=== PATIENT | female | born 1960 | race Caucasian/White ===

== ENCOUNTER 2021-09-21 11:12 | Inpatient (IN) | payer MEDICARE, MEDICAID, SELFPAY ==
--- NOTE | ~2021-09-21 | XR_ITS ---
EXAMINATION: LEFT WRIST CLINICAL INFORMATION: Pain COMPARISON: Left hand from 10/27/2021 TECHNIQUE: 4 views of left hand including scaphoid view FINDINGS: There is no evidence of fracture, dislocation, soft tissue abnormalities. There are no changes of osteoarthritis seen. Bones are well-mineralized and soft tissues are normal. XR/XR wrist LT w scaphoid IMPRESSION: No abnormal findings
--- NOTE | ~2021-09-21 | XR_ITS ---
EXAMINATION: XR HAND, LEFT CLINICAL INFORMATION: Left hand snuffbox tenderness. COMPARISON: None TECHNIQUE: PA, lateral, and oblique views of the left hand. FINDINGS: No fracture or dislocation. Alignment maintained. Joint spaces are maintained. The scaphoid appears intact. The triscaphe joint is maintained. The trapezium is maintained. Soft tissues appear unremarkable. XR/XR hand LT min 3V IMPRESSION: Unremarkable appearance of the left hand. No focal abnormality in the region of concern.
--- NOTE | 2021-09-21 11:20 | ED.PSYCH ---
HPI - Psych General Stated Complaint: SECTION 12, THOUGHTS TO HARM OTHERS Time Seen by Provider: 09/21/21 11:19 Source: patient and EMS Mode of arrival: EMS Limitations: no limitations History of Present Illness HPI Narrative: 61 y/o female with history of schizophrenia with prominent delusions with history of inpatient psychiatric admission here back in 2017 who presents to the ER via EMS with reported thoughts of hurting others. She arrives on a Section 12. MD complaint: homicidal ideation Related Data Allergies Allergy/AdvReac Type Severity Reaction Status Date / Time cashew nut Allergy Severe ANAPHYLAXIS Unverified 06/10/20 17:14 peanut [Peanut] Allergy Severe ANAPHALAXIS Unverified 06/10/20 17:14
--- NOTE | 2021-09-21 11:52 | ED_ITS ---
HPI - Psych General Chief Complaint: Psychiatric Symptoms Stated Complaint: SECTION 12, THOUGHTS TO HARM OTHERS Time Seen by Provider: 09/21/21 11:19 Source: EMS Mode of arrival: EMS Limitations: other (Uncooperative) History of Present Illness HPI Narrative: Patient is brought to the emergency room by EMS. EMS crew was not sure why they were called, other than the patient is manic. Patient was Section 12 by police department. Patient is unwilling to cooperate. Patient states that she is here to be admitted. Patient states she does not know why she is here. Patient refusing to change her clothes. Patient locked herself in the bathroom and is refusing to come out. It is fixated that when she goes to the grocery store, people are staring at her. Patient states that she wants to hurt those people. Patient also states that she is known to have her brother come to the emergency room and kill us all. Of note, patient has a Marquis order. Patient has an extensive psychiatric history. In 2017, patient was hospitalized in for 5 months Related Data Allergies Allergy/AdvReac Type Severity Reaction Status Date / Time cashew nut Allergy Severe ANAPHYLAXIS Unverified 06/10/20 17:14 peanut [Peanut] Allergy Severe ANAPHALAXIS Unverified 06/10/20 17:14 Review of Systems Review of Systems: Yes Other (Uncooperative) [facility] Past Medical History Medical History (Updated 09/21/21 @ 12:08 by Shanta Rodríguez MD) Delusions Hyperprolactinemia Hypothyroidism Paranoid Pituitary adenoma Schizophrenia Social History Social History Advance Directives: No Advance Directives Information Provided: No Patient : No Physical Exam Vital Signs: Vital Signs: Last Vital Signs Resp 16 09/21/21 12:30 BMI result Body Mass Index 26.6 Const: Other: Appearance: Alert. Anxious, refuses to have her vital signs taken Eyes: Pupils equal, round and reactive to light. ENT: Pharynx normal. Neck: Normal inspection. CVS: Declined Respiratory: No respiratory distress. Abdomen: Decline Skin: Skin warm and dry. Normal skin color. Extremities: Moves all extremities Neuro: Oriented X 3. No motor deficit. No sensory deficit. Moving all extermities. No slurred speech. Cranial nerves 2-12 grossly intact Psych: Anxious, uncooperative, locked herself in the bathroom, refusing to change clothes, refusing vitals, patient seems to be paranoid and delusional Course Course Course Narrative: Patient locked herself in the bathroom. Staff was able to open the door. However patient is unwilling to come out. Patient is currently on a one-to-one in the bathroom with the staff. [facility] consult pending. Anticipating the patient will be hospitalized. Physician observation started at 12:07 [facility] evaluated the patient, patient will be admitted, bed search pending 19:13. I was informed that the patient's nurse that the patient remains psychotic, delusional, patient threatening to punch, kill and hurt staff. Patient remains noncompliant. Patient becoming more aggressive. Patient will be given 5 mg of Haldol, 2 of Ativan and 50 mg of diphenhydramine. Order for chemical restraint in place. Discharge Plan Discharge Clinical Impression: Paranoid, Delusional disorder Patient Disposition: Still a Patient
[2021-09-21 12:30] VITALS: RESP 16; BMI 26.6
--- NOTE | 2021-09-21 16:31 | PC.NURSE ---
received phone call from RAMIRO Craig who said brother stated jason was extended, and that patient has been off these meds since november. patients brother name is Kong Guillaume [phone] med is prolixin 25mg IM q 2 weeks ranging up to 50mg im q 2weeks. faxed document will be added to record
--- NOTE | 2021-09-21 18:18 | PC.NURSE ---
tech made attempt to have client comply with covid swab
[2021-09-21 19:20] VITALS: RESP 24
[2021-09-21] MEDS: LORazepam 2 MG/ML VIAL IM (19:25)
[2021-09-21] MEDS: diphenhydrAMINE HCL 50 MG/ML VIAL IM (19:25)
[2021-09-21] MEDS: Haloperidol Lactate 5 MG/ML VIAL IM (19:25)
[2021-09-21 19:35] VITALS: RESP 20
[2021-09-21 19:47] LABS: COVID-19 Test Negative (Negative)
[2021-09-21 19:50] VITALS: RESP 18
[2021-09-21 20:05] VITALS: RESP 16
[2021-09-21 20:20] VITALS: RESP 16
[2021-09-22] VITALS (10 sets, daily range): BP systolic 136–203; BP diastolic 62–117; PULSE 66–91; RESP 14–18; TEMP 36.2–37.1; O2SAT 96–97
--- NOTE | 2021-09-22 | ECG_ITS ---
Test Reason : need for emergent psychotropic medication use Blood Pressure : / mmHG Vent. Rate : 084 BPM Atrial Rate : 084 BPM P-R Int : 144 ms QRS Dur : 078 ms QT Int : 396 ms P-R-T Axes : 110 217 111 degrees QTc Int : 467 ms Suspect limb lead reversal, interpretation assumes no reversal Normal sinus rhythm Lateral infarct , age undetermined Abnormal ECG When compared with ECG of 29-FEB-2012 15:46, QRS axis Shifted left Nonspecific T wave abnormality no longer evident in Anterior leads Nonspecific T wave abnormality now evident in Lateral leads Referred By: Viky Armendariz Electronically Signed By:Justin Reyes
[2021-09-22] MEDS: diphenhydrAMINE HCL 50 MG/ML VIAL IM (02:00)
[2021-09-22] MEDS: LORazepam 2 MG/ML VIAL IM (02:00)
[2021-09-22] MEDS: Haloperidol Lactate 5 MG/ML VIAL IM (02:00)
--- NOTE | 2021-09-22 05:38 | PC.NURSE ---
Patient is completely disoriented, thought content paranoid delusional, thought process non coherent, tangential, and scattered, non compliant with any protocol, refused to change control analyst, refused lab work, and became very aggressive and threatening to staff member, provider ordered Haldol 5 mg IM, Ativan 2 mg IM, and Benadryl 50 mg IM at 1925, administered as ordered with some effect, patient woke up at 0130, demanding discharge, loud and disruptive, threatening, provider was on site, ordered Ativan 2 mg IM, Haldol 5mg PO, and Benadryl 50 mg IM, administered as ordered at 0200 with good effect this time and was placed on physical hold from 0200 to 0245, staff were able to remove her shoes and jewelries, and able to swab her for covid, patient is tested negative for covid, per [facility] patient's disposition is section 12 inpatient bed search, pending blood work, urine sample, change control analyst at this time, will continue to monitor.
--- NOTE | 2021-09-22 08:15 | PC.NURSE ---
Pt received: Pt AOx4 and offers no complaints at this time. Pt cooperative as she gets ready for the day. Pt given breakfast but pt has not eaten any yet. Pt section 12 and is pending bed search.
--- NOTE | 2021-09-22 09:23 | PC.NURSE ---
Pt up to nursing station multiple times stating she will like 1 amp of narcan because she given an elephant dose last night . Pt explained that reasoning behind given narcan and that she does not qualify for one at this moment. Pt responded by waving her finger in this RN's face and stating she will report staff to [facility] and the medical board. Pt's getting readily more angry. Deescalation attempts successful at this time. RN will continue to monitor.
--- NOTE | 2021-09-22 10:16 | PC.NURSE ---
Pt's legal guardian and brother Dr. Kong Guillaume called and asked fro pt update status. Pt relays that a current Geronimo's Order is in affect and extended to mid October,. Kong stated he will faxed over updated documents. Kong also stated he would like to speak to pt's current overseeing provider to discuss medications. Kong can be reached at: [phone]. COLLINS Knight made aware of this conversation.
--- NOTE | 2021-09-22 12:40 | PHA.MEDREC ---
Pharmacy Consult ? Medication Reconciliation Pharmacy has completed the medication reconciliation. Patient has a Geronimo Order for Fluphenazine 25 mg IM Q2Wk. Spoke with patient brother. He is unsure of another other medications patient is on and does not know the pharmacy she fills at. Called [facility] where fluphenazine was filled in January but had no other prescription. Brother believes that she is on levothyoxine but not sure of dose. Tried to speak with patient. Patient would not wake up or was purposly ignoring me. Patricia Flores, PharmD
--- NOTE | 2021-09-22 14:08 | PC.NURSE ---
Nurse to nurse report given to [facility] RN Jennifer. During report, Jennifer asked if pt can get an ekg prior to arrival to unit. COLLINS Knight made aware and COLLINS called [facility] to verify that refusing all labs and ekg.
[2021-09-22 17:54] LABS: MANUAL DIFF FLAG NO
[2021-09-22 18:11] LABS: Ethanol < 10 mg/dL
[2021-09-22 18:15] LABS: Alanine Aminotransferase 20 U/L (0-31); Albumin Level 4.2 g/dL (3.5-5.0); Alkaline Phosphatase 77 U/L (39-117); Anion Gap 13 (12-20); Aspartate Amino Transferase 25 U/L (5-31); Bilirubin Direct 0.2 mg/dL (0.0-0.5); Bilirubin Total 0.6 mg/dL (0.0-1.0); Blood Urea Nitrogen 11 mg/dL (9-16); Calcium 9.6 mg/dL (8.4-10.2); Carbon Dioxide 26 mmol/L (22-29); Chloride 109 mmol/L (96-108); Creatinine Clr Calc Pharmacy 84.7; Estimated Glomerular Filt Rate > 60; Glucose Random 86 mg/dL (60-115); Lipase 18 U/L (8-78); Potassium 3.5 mmol/L (3.3-5.1); Sodium 144 mmol/L (135-145); Total Protein 7.2 g/dL (6.5-8.0)
[2021-09-22 18:19] LABS: Basophils Percent Auto 0.4 % (0-2); Eosinophils Absolute Auto 0.1 X10*3/uL (0.0-0.4); Eosinophils Percent Auto 0.7 % (0-4); Hematocrit 41.1 % (37.0-47.0); Imm Gran Abs Auto 0.01 X10*3/uL (0.00-0.03); Imm Gran Pct Auto 0.1 % (0.0-0.4); Lymphocytes Absolute Auto 1.7 X10*3/uL (1.2-4.9); Mean Corpuscular HGB Conc 34.1 g/dl (31.0-35.0); Mean Corpuscular Hemoglobin 28.5 pg (27.0-33.0); Mean Corpuscular Volume 83.5 fL (80.0-98.0); Mean Platelet Volume 10.6 fL (9.4-12.3); Monocytes Absolute Auto 0.7 X10*3/uL (0.1-1.2); Monocytes Percent Auto 10.1 % (2-11); Neutrophils Absolute Auto 4.4 x10*3/uL (2.0-8.3); Neutrophils Percent Auto 63.7 % (45-73); Platelet Count 239 X10*3/uL (160-400); Red Blood Count 4.92 X10*6/uL (4.20-5.50); Red Cell Distribution Width 13.3 % (11.0-16.0)
--- NOTE | 2021-09-22 23:52 | PC.ADMIT ---
A white female aged 61 years was [facility] at 1744 as a section 12-B following referral from [facility] and [facility]. Pt is known to [facility] and has a admissions here and elsewhere. Pt admitted with a diagnosis of Unspecified Schizophrenia spectrum and other psychotic d/o. Pt was evaluated at [facility] due to decompensated mental state; pt was unkempt, with intense eye contact and appeared hypervigilant. Speech was low and pressured at times. Pt has poor sleep and appetite. Pt c/o racing thoughts at night and inability to sleep due to fixed persecutory delusions of bombs in her home, bugs in her clothing and fears of being watched. Pt said voices tell her these things. Pt noted weight loss due to fear of going top the grocery store. Pt's apartment was noted to have rotting food on countertops and refrigerator. Pt denied SI/HI. [facility] reports pt is on a Marquis order and has not taken medications since December of 2020. Pt had stopped responding to phone calls from [facility] in February; wellness checks had been done, but pt appeared well. [facility] staff noted at end of July looked okay but was noted to be off baseline and was using vulgar language. Recently the prperty information assurance manager of apartment complex called [facility] because of bizarre behaviors. [facility] staff felt that the pandemeic contributed to pt's decompensation due to increased isolation. Pt was not able to participate in admission due to apparent sedation. Medical issues include Crohn's didease, hyperthyroidism, pituitary edenoma and hyperprolactinemia. Pt had an elevated BP upon /112; subsequent assessment remained high. Provider was notified and an order was obtained for Clonidine 0.1mg PO ONCE; pt refused medication saying her BP was elevated because of acrylic in the sheets . Pt has no history of Etoh or substance abuse.Pt was placed on 1:1 safety checks upon arrival due to apparent sedation related to a medication restraint that had occurred in the ED this morning. [id number] done, initial treatment plan done and admitting orders obtained. Pt is resting in room at this time.
[2021-09-23 00:02] VITALS: BP 194/96; PULSE 66; RESP 18; TEMP 36.8; O2SAT 96
--- NOTE | 2021-09-23 00:06 | PC.NURSE ---
Addendum entered by Carrie Lang RN 09/23/21 00:08: Will continue to monitor pt and her BP throughout the night. Original Note: Pt vitals were taken at 2350, BP was 194/96. Pt was asked to take Clonidine, pt refused.
[2021-09-23 02:08] VITALS: BP 191/93; PULSE 78; RESP 18; TEMP 37; O2SAT 97
--- NOTE | 2021-09-23 02:08 | PC.NURSE ---
Addendum entered by Carrie Lang RN 09/23/21 02:22: call or contact centre operator Dr. Guzman notified. Original Note: Pt vitals were taken at 0200, BP is 191/93. Pt offered Clonidine, pt is refusing. Nursing Hand Tile Maker notified
--- NOTE | 2021-09-23 03:07 | PC.NURSE ---
Spoke with Dr. Guzman regarding consecutive elevated BP's for pt and refusal of BP meds. Dr will put order in for Haldol PO and Ativan PO and also suggested Hydroxyzine also to help with BP to offer her and keep monitoring BP as we are. Stated she will speak with pt's son tomorrow.
--- NOTE | 2021-09-23 03:33 | PC.NURSE ---
PT refused Haldol, Ativan, Hydroxyzine for help with BP. Pt states her elevated BP is due to the acrylic in my socks and stated for the RN to shut her mouth . BP was 140/80 at this time. Has decreased substantially since last taken.
[2021-09-23 03:38] VITALS: BP 140/80; PULSE 72; RESP 16; TEMP 37.2; O2SAT 97
--- NOTE | 2021-09-23 13:42 | HO.PSYADMNOT ---
HPI Date of Service: 09/23/21 Chief Complaint: SECTION 12, THOUGHTS TO HARM OTHERS Sources of Information: patient interviewed, chart reviewed and crisis/core team assessment reviewed Additional Sources of Information: Pts Brother Kong Lee (legal Guardian); review of Jason Order extended through Nov 11, 2021. HPI Subjective Notes: Ann Warning, Jason Order and Section 12B Guardianship: Yes Medical Problems Affecting Mental Status: Yes (possible untreated hypothyroidism per her brother/guardian) Narrative: pt brought to Ed by police and EMS due to decompensation, inability to care fro self and paranoid delusions. Admitted to m5 on section 12 B. pt states she si here at the hospital because of police mistreatment. she states they kicked down her door. she states that [employer] police are poisoning her and forcing her to take medication because she refused to work for them. She beleives food and medicine are poisoned by the government. She will not see a psychiatrist becasue they work for the [employer] Police and the same goes for therapist. Past Psychiatric History: many hospitalizations for schizophrenia with paranoid delusions. Has only responded to prolixin in past acording to her brother. she had had terrible side effect from other meds in the past. Geronimo Order in place and expires Nov 11, 2021 Medical Evaluation Reviewed: Yes reviewed [facility] Medical History (Updated 09/21/21 @ 12:08 by Shanta Rodríguez MD) Delusions Hyperprolactinemia Hypothyroidism Paranoid Pituitary adenoma Schizophrenia Family History: brother Kong Lee is guardian pt states parents are in hiding due to fear of [employer] Police Social History: lives alone, has [facility] services Substance History: no Trauma History: none known Diagnostics Vital Signs (24Hr): Vital Signs - 24 hr 09/22/21 18:00 09/22/21 19:10 09/22/21 22:30 Temperature 98.7 F Pulse Rate 91 87 78 Respiratory Rate 18 18 18 Blood Pressure 203/112 H 191/117 H 203/106 H Pulse Oximetry 09/22/21 23:54 09/23/21 00:02 09/23/21 02:08 Temperature 98.2 F 98.2 F 98.6 F Pulse Rate 66 66 78 Respiratory Rate 18 18 18 Blood Pressure 194/96 H 194/96 H 191/93 H Pulse Oximetry 96 96 97 09/23/21 03:38 Temperature 98.9 F Pulse Rate 72 Respiratory Rate 16 Blood Pressure 140/80 H Pulse Oximetry 97 BMI result Body Mass Index 26.6 Labs Results: 09/22/21 17:48 09/22/21 17:48 Labs: Laboratory Results - last 48 hr 09/21/21 09/22/21 09/22/21 19:26 17:48 17:48 WBC 7.0 RBC 4.92 Hgb 14.0 Hct 41.1 MCV 83.5 MCH 28.5 MCHC 34.1 RDW 13.3 Plt Count 239 MPV 10.6 Immature Gran % (Auto) 0.1 Neut % (Auto) 63.7 Lymph % (Auto) 25.0 [place] % (Auto) 10.1 Eos % (Auto) 0.7 Baso % (Auto) 0.4 Lymph # (Auto) 1.7 [place] # (Auto) 0.7 Eos # (Auto) 0.1 Baso # (Auto) 0.0 Abs Immat Gran (auto) 0.01 Absolute Neuts (auto) 4.4 Absolute Nucleated RBC 0.000 Nucleated RBC % (auto) 0.0 Sodium 144 Potassium 3.5 Chloride 109 H Carbon Dioxide 26 Anion Gap 13 BUN 11 Creatinine 0.74 Estim Creat Clear Calc 84.7 Estimated GFR > 60 Random Glucose 86 Calcium 9.6 Total Bilirubin 0.6 Direct Bilirubin 0.2 AST 25 ALT 20 Alkaline Phosphatase 77 Total Protein 7.2 Albumin 4.2 Lipase 18 Ethyl Alcohol COVID-19 (MARGIE) Negative COVID-19 Clin Com See Note 09/22/21 17:48 WBC RBC Hgb Hct MCV MCH MCHC RDW Plt Count MPV Immature Gran % (Auto) Neut % (Auto) Lymph % (Auto) [place] % (Auto) Eos % (Auto) Baso % (Auto) Lymph # (Auto) [place] # (Auto) Eos # (Auto) Baso # (Auto) Abs Immat Gran (auto) Absolute Neuts (auto) Absolute Nucleated RBC Nucleated RBC % (auto) Sodium Potassium Chloride Carbon Dioxide Anion Gap BUN Creatinine Estim Creat Clear Calc Estimated GFR Random Glucose Calcium Total Bilirubin Direct Bilirubin AST ALT Alkaline Phosphatase Total Protein Albumin Lipase Ethyl Alcohol < 10 COVID-19 (MARGIE) COVID-19 Clin Com Meds/Allergies Meds Home Medications Acetaminophen (Acetaminophen 325 Mg Tablet) 650 mg PO Q6H PRN PRN Reason: Headache/Pain Mild Scale (1-3) Al Hydroxide/Mg Hydroxide (Magnesium Hydrox/Alum Hydrox 30 Ml Oral.Susp) 30 ml PO Q6H PRN PRN Reason: Heartburn/Nausea Fluphenazine HCl (Fluphenazine Hcl 1 Mg Tablet) 1 mg PO BEDTIME [facility] Last Admin: 09/23/21 19:41 Dose: 1 mg Documented by: Haloperidol (Haloperidol 1 Mg Tablet) 2 mg PO BID PRN PRN Reason: Psychosis Hydroxyzine HCl (Hydroxyzine Hcl 25 Mg Tablet) 25 mg PO BEDTIME PRN PRN Reason: Anxiety Lorazepam (Lorazepam 1 Mg Tablet) 1 mg PO TID [facility] Last Admin: 09/23/21 19:42 Dose: Not Given Documented by: Magnesium Hydroxide (Milk Of Magnesia 30 Ml Oral.Susp) 30 ml PO DAILY PRN PRN Reason: Constipation Non-Formulary Medication ( Fluphenazine 1 Mg/0. 4 Ml) 1 each IM BEDTIME PRN PRN Reason: IF PO DOSE REFUSED Pharmacy Consult (Consult Rx Perform Med Rec) 1 each MISCELLANE ONCE PRN PRN Reason: Consult order Trazodone HCl (Trazodone Hcl 50 Mg Tablet) 50 mg PO BEDTIME PRN PRN Reason: Insomnia Allergies Allergies Allergy/AdvReac Type Severity Reaction Status Date / Time cashew nut Allergy Severe ANAPHYLAXIS Unverified 06/10/20 17:14 peanut [Peanut] Allergy Severe ANAPHALAXIS Unverified 06/10/20 17:14 Mental Status Exam Mental Status Exam Patient Appearance: Disheveled and Unkempt Patient Orientation: Person and Situation Level of Consciousness: Awake and Alert Patient Behavior: Guarded and Suspicious Mood Description: Suspicious and Apprehensive Affect Description: Suspicious Patient Cognition Impaired: Yes Ability to Follow Directions: Good Speech Pattern: Clear Hallucinations: Auditory Delusions: Being Controlled and Paranoid Ideation Thought Content: positive for Loose Associations Judgement: Poor Assessment & Plan Assessment & Plan (1) Paranoid: Status: Acute Code(s): F22 - Delusional disorders Assessment and Plan: believes food and medicine are poisoned and that the [facility] police are controlling her due to her refusal to work with them (2) Delusional disorder: Status: Acute Code(s): F22 - Delusional disorders Assessment and Plan: review jason order- extended and in effect until Nov 11, 2021. collateral with brother, [facility], out pt providres' discharge planning with sw/team start prolixin - offer PO medication and if refuse give IM prolixin 1mg at hs and titrate upto tolerated and therapeutic switch to deconoate when appropriate monitor vitals TID Patient educated on: diagnosis, medication risk/benefits and other (Jason order (pt denies she has one) ) Guardian/Caregiver educated on: medication risk/benefits, therapeutic strategies and other (brother agree with treatment plan to offer PO meds and give IM if pt refuses. ) Informed Consent: does not understand Reason for continued inpatient stay Substantial Risk for: harm to self, inability to function, rapid decompensation and med/psych decompensation
[2021-09-23] MEDS: fluPHENAZine HCl 1 MG TABLET PO (19:41)
--- NOTE | 2021-09-23 19:43 | PC.NURSE ---
PT refused vital signs and Ativan at 19:44. MD notified, no new orders.
--- NOTE | 2021-09-24 11:55 | HO.PSYCHPN ---
Subjective Subjective Date of Service: 09/24/21 Reason For Visit: SECTION 12, THOUGHTS TO HARM OTHERS Subjective Notes: Section 12B Guardianship: Yes Medical Problems Affecting Mental Status: No Interim History: pt accepted PO meds last night. no adverse effects. brother who is guardian advises to watch for cheeking PO meds. pt withdrawn, mood superficially bright, guarded and isolative Medication Compliance: Yes Side effects from medications: No Attending Groups: No Review of Systems Acute medical concerns: No Medical Review of Systems: unchanged Review of Systems Review of Systems no change since transfer from ED. Pt denies any complaints of physical discomfort. Yes Unobtainable due to mental status and Other (Uncooperative) Mental Status Exam Mental Status Exam Patient Appearance: Disheveled and Unkempt Patient Orientation: Person and Situation Level of Consciousness: Awake and Alert Patient Behavior: Guarded and Suspicious Mood Description: Suspicious and Apprehensive Affect Description: Suspicious Patient Cognition Impaired: Yes Ability to Follow Directions: Good Speech Pattern: Clear Judgement: Poor Diagnostics Vital Signs (24Hr): BMI result Body Mass Index 26.6 Labs Results: 09/22/21 17:48 09/22/21 17:48 Labs: Laboratory Results - last 48 hr 09/22/21 09/22/21 09/22/21 17:48 17:48 17:48 WBC 7.0 RBC 4.92 Hgb 14.0 Hct 41.1 MCV 83.5 MCH 28.5 MCHC 34.1 RDW 13.3 Plt Count 239 MPV 10.6 Immature Gran % (Auto) 0.1 Neut % (Auto) 63.7 Lymph % (Auto) 25.0 Greer % (Auto) 10.1 Eos % (Auto) 0.7 Baso % (Auto) 0.4 Lymph # (Auto) 1.7 Greer # (Auto) 0.7 Eos # (Auto) 0.1 Baso # (Auto) 0.0 Abs Immat Gran (auto) 0.01 Absolute Neuts (auto) 4.4 Absolute Nucleated RBC 0.000 Nucleated RBC % (auto) 0.0 Sodium 144 Potassium 3.5 Chloride 109 H Carbon Dioxide 26 Anion Gap 13 BUN 11 Creatinine 0.74 Estim Creat Clear Calc 84.7 Estimated GFR > 60 Random Glucose 86 Calcium 9.6 Total Bilirubin 0.6 Direct Bilirubin 0.2 AST 25 ALT 20 Alkaline Phosphatase 77 Total Protein 7.2 Albumin 4.2 Lipase 18 Ethyl Alcohol < 10 Medications Medications Current Medications Acetaminophen (Acetaminophen 325 Mg Tablet) 650 mg PO Q6H PRN PRN Reason: Headache/Pain Mild Scale (1-3) Al Hydroxide/Mg Hydroxide (Magnesium Hydrox/Alum Hydrox 30 Ml Oral.Susp) 30 ml PO Q6H PRN PRN Reason: Heartburn/Nausea Fluphenazine HCl (Fluphenazine Hcl 1 Mg Tablet) 1 mg PO BID SARABJIT Haloperidol (Haloperidol 1 Mg Tablet) 2 mg PO BID PRN PRN Reason: Psychosis Hydroxyzine HCl (Hydroxyzine Hcl 25 Mg Tablet) 25 mg PO BEDTIME PRN PRN Reason: Anxiety Lorazepam (Lorazepam 1 Mg Tablet) 1 mg PO TID [facility] Last Admin: 09/24/21 09:05 Dose: Not Given Documented by: Magnesium Hydroxide (Milk Of Magnesia 30 Ml Oral.Susp) 30 ml PO DAILY PRN PRN Reason: Constipation Non-Formulary Medication ( Fluphenazine 1 Mg/0. 4 Ml) 1 each IM BEDTIME PRN PRN Reason: IF PO DOSE REFUSED Pharmacy Consult (Consult Rx Perform Med Rec) 1 each MISCELLANE ONCE PRN PRN Reason: Consult order Trazodone HCl (Trazodone Hcl 50 Mg Tablet) 50 mg PO BEDTIME PRN PRN Reason: Insomnia Allergies Allergies Allergy/AdvReac Type Severity Reaction Status Date / Time cashew nut Allergy Severe ANAPHYLAXIS Unverified 06/10/20 17:14 peanut [Peanut] Allergy Severe ANAPHALAXIS Unverified 06/10/20 17:14 Assessment & Plan Assessment & Plan (1) Paranoid: Status: Acute Code(s): F22 - Delusional disorders Assessment and Plan: believes food and medicine are poisoned and that the [employer] police are controlling her due to her refusal to work with them (2) Delusional disorder: Status: Acute Code(s): F22 - Delusional disorders Assessment and Plan: 09/23/21 review jason order- extended and in effect until Nov 11, 2021. collateral with brother, [facility], out pt providres' discharge planning with sw/team start prolixin - offer PO medication and if refuse give IM prolixin 1mg at hs and titrate upto tolerated and therapeutic switch to deconoate when appropriate monitor vitals TID 09/24/20 increase prolixin to 1 mg BID PO and if refuses PO give IM Prolixin. with PO meds monitor for cheeking the pills as brother state she has a history of such. I spent minutes with the patient and/or on the patient floor today, greater than?50% of which was spent counseling/coordinating care. Patient educated on: diagnosis, medication risk/benefits and therapeutic strategies Informed Consent: does not understand Reason for contiued inpatient stay Substantial Risk for: harm to self, harm to others, inability to function and rapid decompensation
[2021-09-24] MEDS: fluPHENAZine HCl 1 MG TABLET PO (14:23)
[2021-09-25] MEDS: fluPHENAZine HCl 1 MG TABLET PO ×2 (08:42→22:21)
--- NOTE | 2021-09-25 10:53 | HO.PSYCHPN ---
Subjective Subjective Date of Service: 09/25/21 Reason For Visit: SECTION 12, THOUGHTS TO HARM OTHERS Healthcare Proxy: Yes Guardianship: Yes Medical Problems Affecting Mental Status: No Interim History: pt accepting PO meds last night. no adverse effects. brother who is guardian advises to watch for cheeking PO meds. pt withdrawn, mood superficially bright, guarded. Doesn't feel she needs to be in hospital; feels she does not need treatmetn; makes statements that meds were forced due to her no cooperating with [employer] Medication Compliance: Yes Side effects from medications: No Attending Groups: No Review of Systems Acute medical concerns: No Medical Review of Systems: unchanged Review of Systems Review of Systems no change since transfer from ED. Pt denies any complaints of physical discomfort. Yes Unobtainable due to mental status and Other (Uncooperative) Mental Status Exam Mental Status Exam Patient Appearance: Disheveled and Unkempt Patient Orientation: Person and Situation Level of Consciousness: Awake and Alert Patient Behavior: Guarded, Suspicious, Resistive to Care and Pacing Mood Description: Suspicious, Constricted and Apprehensive Affect Description: Suspicious, Anxious and Apprehensive Patient Cognition Impaired: Yes Ability to Follow Directions: Good Speech Pattern: Clear Delusions: Being Controlled and Paranoid Ideation Thought Process: Illogical Thought Content: positive for Goal Oriented (to get out of hospital) Judgement: Poor Diagnostics Vital Signs (24Hr): BMI result Body Mass Index 26.6 Labs Results: 09/22/21 17:48 09/22/21 17:48 Medications Medications Current Medications Acetaminophen (Acetaminophen 325 Mg Tablet) 650 mg PO Q6H PRN PRN Reason: Headache/Pain Mild Scale (1-3) Al Hydroxide/Mg Hydroxide (Magnesium Hydrox/Alum Hydrox 30 Ml Oral.Susp) 30 ml PO Q6H PRN PRN Reason: Heartburn/Nausea Fluphenazine HCl (Fluphenazine Hcl 1 Mg Tablet) 1 mg PO BID [facility] Last Admin: 09/25/21 08:42 Dose: 1 mg Documented by: Haloperidol (Haloperidol 1 Mg Tablet) 2 mg PO BID PRN PRN Reason: Psychosis Hydroxyzine HCl (Hydroxyzine Hcl 25 Mg Tablet) 25 mg PO BEDTIME PRN PRN Reason: Anxiety Lorazepam (Lorazepam 1 Mg Tablet) 1 mg PO TID [facility] Last Admin: 09/25/21 08:44 Dose: Not Given Documented by: Magnesium Hydroxide (Milk Of Magnesia 30 Ml Oral.Susp) 30 ml PO DAILY PRN PRN Reason: Constipation Non-Formulary Medication ( Fluphenazine 1 Mg/0. 4 Ml) 1 each IM BID PRN PRN Reason: IF PO DOSE REFUSED Pharmacy Consult (Consult Rx Perform Med Rec) 1 each MISCELLANE ONCE PRN PRN Reason: Consult order Trazodone HCl (Trazodone Hcl 50 Mg Tablet) 50 mg PO BEDTIME PRN PRN Reason: Insomnia Allergies Allergies Allergy/AdvReac Type Severity Reaction Status Date / Time cashew nut Allergy Severe ANAPHYLAXIS Unverified 06/10/20 17:14 peanut [Peanut] Allergy Severe ANAPHALAXIS Unverified 06/10/20 17:14 Assessment & Plan Assessment & Plan (1) Paranoid: Status: Acute Code(s): F22 - Delusional disorders Assessment and Plan: believes food and medicine are poisoned and that the [employer] police are controlling her due to her refusal to work with them (2) Delusional disorder: Status: Acute Code(s): F22 - Delusional disorders Assessment and Plan: 09/23/21 review jason order- extended and in effect until Nov 11, 2021. collateral with brother, [facility], out pt providres' discharge planning with sw/team start prolixin - offer PO medication and if refuse give IM prolixin 1mg at hs and titrate upto tolerated and therapeutic switch to deconoate when appropriate monitor vitals TID 09/24/20 increase prolixin to 1 mg BID PO and if refuses PO give IM Prolixin. with PO meds monitor for cheeking the pills as brother state she has a history of such. 09/25/21 continue Prolixin 1 mg bid and titrate as needed I spent minutes with the patient and/or on the patient floor today, greater than?50% of which was spent counseling/coordinating care. Patient educated on: diagnosis, medication risk/benefits and therapeutic strategies Informed Consent: does not understand and further education needed Reason for contiued inpatient stay Substantial Risk for: harm to self, inability to function and rapid decompensation
[2021-09-26] MEDS: fluPHENAZine HCl 1 MG TABLET PO ×2 (08:26→21:16)
--- NOTE | 2021-09-26 09:51 | HO.PSYCHPN ---
Subjective Subjective Date of Service: 09/26/21 Reason For Visit: SECTION 12, THOUGHTS TO HARM OTHERS Subjective Notes: Ann Warning (gave on 09/26/21), Conditional Voluntary, 3 Day and Section 12B Interim History: Habilitation Specialist met with patient and social work administrator Aimee Vidales Patient cooperative but with anxious affect and guarded and discussion Patient says she has no idea why she is here. She says she has been doing fine...very well... And that her prescriber agreed she should go off of her medication and so she stopped Prolixin months ago; since then she reiterates she has been doing quite well. She says this past spring,it was decided that she no longer needs to be on a Marquis or see a psychiatrist. Patient says all the sudden out of no where the police came banging on her door, barged in and brought her to the emergency room; she denies that any [facility] staff was present. Patient denies any SI, HI or AVH and she says she is not mentally ill. Habilitation Specialist and social work administrator did some reality testing and shared with patient what crisis report and [facility] worker said ([facility] worker was at the house with the police doing a wellness check). Patient denies that there was any rotten food in the house; she denied or buckets of urine; she denied having barricaded her door; she denied having any concern, worries or had made remarks about [facility] staff being part of the [employer] secret service; she denied that [facility] she had tried to visit in past months; she denied delusional worry that they were bombs in her toilet or bugs in her clothes. She did acknowledge that she had put some trash bags outside her door which contains her belongings, but said she was just cleaning up. [facility] worker explain to social work administrator Aimee that there work about 40 trash bags full of her furniture, pots and pans and appliances; they had done a wellness check back in July and [facility] worker reports that patient's apartment was meticulously clean, which it usually is. Patient said that she is willing to take Prolixin which he has done since coming to the unit, since it seems to make everyone happy. She remains adamant that she has had no delusional thinking and adamant that Marquis order has been annulled. Patient is currently on a 12 B. discussed signing a CV, discussed 3 day notice option, which patient understood and said will consider. Regarding Prolixin patient said that it caused her to gain weight, caused acne and hirsutism. 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 Mental Status Exam Mental Status Exam Narrative: Pt is alert and oriented; behavior is cooperative but guarded; patient is not in distress; dressed in home bathrobe and pajamas with combed hair and good hygiene; mood is described as good and affect anxious; eye contact appropriate; Speech is normal rate, volume and prosody and not pressured; no psychomotor agitation/retardation present; thought process is organized and goal directed; Thought content is why she's been admitted to hospital; otherwise pertinent to relevant topics; denies paranoid ideations; some delusonal thinking expressed ([employer] has been annulled); denies SI/HI or AVH. Patients insight and judgment impaired Diagnostics Vital Signs (24Hr): BMI result Body Mass Index 26.6 Labs Results: 09/22/21 17:48 09/22/21 17:48 Medications Medications Current Medications Acetaminophen (Acetaminophen 325 Mg Tablet) 650 mg PO Q6H PRN PRN Reason: Headache/Pain Mild Scale (1-3) Al Hydroxide/Mg Hydroxide (Magnesium Hydrox/Alum Hydrox 30 Ml Oral.Susp) 30 ml PO Q6H PRN PRN Reason: Heartburn/Nausea Fluphenazine HCl (Fluphenazine Hcl 1 Mg Tablet) 1 mg PO BID [facility] Last Admin: 09/26/21 08:26 Dose: 1 mg Documented by: Haloperidol (Haloperidol 1 Mg Tablet) 2 mg PO BID PRN PRN Reason: Psychosis Hydroxyzine HCl (Hydroxyzine Hcl 25 Mg Tablet) 25 mg PO BEDTIME PRN PRN Reason: Anxiety Lorazepam (Lorazepam 1 Mg Tablet) 1 mg PO TID [facility] Last Admin: 09/26/21 08:27 Dose: Not Given Documented by: Magnesium Hydroxide (Milk Of Magnesia 30 Ml Oral.Susp) 30 ml PO DAILY PRN PRN Reason: Constipation Non-Formulary Medication ( Fluphenazine 1 Mg/0. 4 Ml) 1 each IM BID PRN PRN Reason: IF PO DOSE REFUSED Pharmacy Consult (Consult Rx Perform Med Rec) 1 each MISCELLANE ONCE PRN PRN Reason: Consult order Trazodone HCl (Trazodone Hcl 50 Mg Tablet) 50 mg PO BEDTIME PRN PRN Reason: Insomnia Allergies Allergies Allergy/AdvReac Type Severity Reaction Status Date / Time cashew nut Allergy Severe ANAPHYLAXIS Unverified 06/10/20 17:14 peanut [Peanut] Allergy Severe ANAPHALAXIS Unverified 06/10/20 17:14 Assessment & Plan Assessment & Plan (1) Paranoid: Status: Acute Code(s): F22 - Delusional disorders Assessment and Plan: believes food and medicine are poisoned and that the [facility] police are controlling her due to her refusal to work with them (2) Delusional disorder: Status: Acute Code(s): F22 - Delusional disorders Assessment and Plan: Patient is a 61-year-old female with history of Schizophrenia, on a [employer] and with her brother as guardian, who presents via EMS following a wellness check by [facility] staff and police who found patient's apartment in a disheveled state and patient with paranoid delusions that her food was poisoned, there were bombs in the toilet and that [facility] staff was a part of the [place] secret police who were planning her demise, in the face of going off her Prolixin Decanoate this past December. On admission she denied any SI, HI, AVH or any delusional thinking; she also denied that any of the reported events or findings from [facility]'s wellness check were true and denied that she has a mental illness. Patient refused to sign in and was on a 12 B. Patient was willing to take Prolixin p.o. She lacks all insight. PLAN: Patient is on a [employer] extended and in effect until Nov 11, 2021. Patient has a guardian, her brother Kong Guillaume Patient on 12 B Q 15 minute checks Continue Prolixin 1 mg p.o. b.i.d.; currently patient refuses IM medications saying she is fine and does not need medication anyway but will take it just since everyone wants her to. Will get collateral from guardian I spent minutes with the patient and/or on the patient floor today, greater than?50% of which was spent counseling/coordinating care. Reason for contiued inpatient stay Substantial Risk for: inability to function
--- NOTE | 2021-09-26 12:31 | PC.NURSE ---
pt states never a smoker and does not want flu shot.
--- NOTE | 2021-09-26 21:15 | PC.NURSE ---
Patient refused labs and stated I don't want anyone else to come and ask me to let them draw labs on me. I had labs drawn in the ED and they were all normal . Who ordered those labs anyway?
[2021-09-27] MEDS: fluPHENAZine HCl 1 MG TABLET PO ×2 (08:23→20:15)
--- NOTE | 2021-09-27 14:22 | P.PNPSI_ITS ---
Subjective Subjective Date of Service: 09/27/21 Reason For Visit: SECTION 12, THOUGHTS TO HARM OTHERS Subjective Notes: Marquis Order, Conditional Voluntary and Section 12B Interim History: Refusing vitals; refused labs Patient was eager to sit down with consumer loan underwriter and social service assistant. She continued to deny any of the things that [facility] staff reported were true. Patient was ambivalent about signing a CV and asked consumer loan underwriter to go and 1st talk with her brother who is her guardian. Station Tender agreed (see details of conversation below). Station Tender came back to patient to discuss details of this conversation; however when it was explained that guardian believes she needs to remain on the unit and on ProlixinDecanoate, long-acting injectable, patient became angry. She then became verbally aggressive with consumer loan underwriter, demanding to see consumer loan underwriter's credentials, refusing to accept that consumer loan underwriter is a physician and saying we know who you are. .. If you touch any of us you're meat... She also accused social service assistant present of being an imposter. She asked to see Marquis order and since copy of paper was available, consumer loan underwriter showed it to pt who said it was a fake. She said that the primer charger of the state was Geov[place] and that he never signed her Marquis order; she later said he was also her fiance. Station Tender could not redirect conversation and patient continued to verbally challenge consumer loan underwriter and then saying she was going to escort consumer loan underwriter off the unit. Patient followed consumer loan underwriter closely, telling consumer loan underwriter to go out the door and that she was going to escort consumer loan underwriter off the unit; she could not be redirected but continue to follow consumer loan underwriter even trying to get behind the nurse's station to do so, only stopped when gate was closed but continuing to loudly speak accusatory early towards consumer loan underwriter. She then immediately went up to a staff member and said she knows that consumer loan underwriter was planning to murder patients on the unit. Throughout the day, each time consumer loan underwriter came onto the unit patient would i mmediately come over and start challenging consumer loan underwriter saying consumer loan underwriter's not doctor, telling other patients present not to listen to this consumer loan underwriter; patient is intrusive and invading staff's personal space, with angry affect and intense stare she would get very close to this consumer loan underwriter's face (and to other staff as well) and make challenging desparaging comments. She continued this behavior and interjected herself in the middle of a conversation consumer loan underwriter was having with another patient on the unit; in one instance she approached consumer loan underwriter shaking her finger, glaring and with intense, angry affect saying you're not a real doctor... she kept getting closer and closer until consumer loan underwriter had to stop and move back to avoid her; she then positioned herself in-between consumer loan underwriter and other patient; consumer loan underwriter tried to redirect her saying please excuse us, i can't talk with your right now, but she persisted, saying no, i won't and loudly told other patient don't listen to him...don't listen to him... he's not a real doctor. As consumer loan underwriter and peer tried to walk down the kramer away from patient, she followed, haranguing consumer loan underwriter needing to be redirected by another staff member. Station Tender spoke with patient's guardian, her brother Kong rojas. He reports that on Prolixin Decanoate 25 mg q.2 weeks patient does very well, drives her own car, volunteers, takes care of her apartment, herself, lives on her own and is mostly independent takes care of her apartment and herself. He says at baseline she probably still has delusional thoughts but they do not surface much and at baseline do not interrupt her functioning. He would like her to remain on long-acting injectable decanoate and says she will absolutely not take p.o. meds as an outpatient. He concurs that on this medication, she may have gained weight and developed some insulin resistance or high cholesterol however he says that this is the only medication that has seemed to work with the least amount of side effects. Patient has been out of the hospital for about 4 and half years. Her brother thinks that what likely happened was that COVID allowed her to fall through the cracks a bit and after she refused a couple of doses, she resisted [facility] staff. He says that when she has gone off medication in the past, she is able to continue functioning for several months, slowly decompensating until she all the sudden falls off a asa. Mental Status Exam Mental Status Exam Narrative: Pt is alert and oriented; behavior is aggressive, intrusive, verbally assaulting staff, posturing; dressed in home bathrobe and pajamas with combed hair and good hygiene; mood is described as angry with intense and angry affect anxious; eye contact is glaring; Speech is pressured and pt cannot be interrupted; psychomotor agitation present; thought process is organized and goal directed; Thought content is on paranoid delusional and persecutory fears; denies SI/HI or AVH.? Patients insight and judgment impaired Diagnostics Vital Signs (24Hr): BMI result Body Mass Index 26.6 Labs Results: 09/22/21 17:48 09/22/21 17:48 Medications Medications Current Medications Acetaminophen (Acetaminophen 325 Mg Tablet) 650 mg PO Q6H PRN PRN Reason: Headache/Pain Mild Scale (1-3) Al Hydroxide/Mg Hydroxide (Magnesium Hydrox/Alum Hydrox 30 Ml Oral.Susp) 30 ml PO Q6H PRN PRN Reason: Heartburn/Nausea Fluphenazine Decanoate (Fluphenazine Decanoate 25 Mg/Ml Vial) 25 mg IM Q14D@[facility]00 [facility] Fluphenazine HCl (Fluphenazine Hcl 1 Mg Tablet) 1 mg PO BID [facility] Last Admin: 09/27/21 08:23 Dose: 1 mg Documented by: Haloperidol (Haloperidol 1 Mg Tablet) 2 mg PO BID PRN PRN Reason: Psychosis Hydroxyzine HCl (Hydroxyzine Hcl 25 Mg Tablet) 25 mg PO BEDTIME PRN PRN Reason: Anxiety Lorazepam (Lorazepam 1 Mg Tablet) 1 mg PO TID [facility] Last Admin: 09/27/21 13:46 Dose: Not Given Documented by: Magnesium Hydroxide (Milk Of Magnesia 30 Ml Oral.Susp) 30 ml PO DAILY PRN PRN Reason: Constipation Non-Formulary Medication ( Fluphenazine 1 Mg/0. 4 Ml) 1 each IM BID PRN PRN Reason: IF PO DOSE REFUSED Pharmacy Consult (Consult Rx Perform Med Rec) 1 each MISCELLANE ONCE PRN PRN Reason: Consult order Trazodone HCl (Trazodone Hcl 50 Mg Tablet) 50 mg PO BEDTIME PRN PRN Reason: Insomnia Allergies Allergies Allergy/AdvReac Type Severity Reaction Status Date / Time cashew nut Allergy Severe ANAPHYLAXIS Unverified 06/10/20 17:14 peanut [Peanut] Allergy Severe ANAPHALAXIS Unverified 06/10/20 17:14 Assessment & Plan Assessment & Plan (1) Paranoid: Status: Acute Code(s): F22 - Delusional disorders Assessment and Plan: believes food and medicine are poisoned and that the [facility] police are controlling her due to her refusal to work with them (2) Delusional disorder: Status: Acute Code(s): F22 - Delusional disorders Assessment and Plan: Patient is a 61-year-old female with history of Schizophrenia, on a community Marquis and with her brother as guardian, who presents via EMS following a wellness check by [facility] staff and police who found patient's apartment in a disheveled state and patient with paranoid delusions that her food was poisoned, there were bombs in the toilet and that [facility] staff was a part of the [facility] secret police who were planning her demise, in the face of going off her? Prolixin Decanoate this past December.? On admission she denied any SI, HI, AVH or any delusional thinking; she also denied that any of the reported events or findings from [facility]'s wellness check were true and denied that she has a mental illness.? Patient refused to sign in and was on a 12 B.? Patient was willing to take Prolixin p.o. She lacks all insight. Patient continues to lack all insight and has become verbally aggressive physically posturing with menacing affect, intruding into staff's personal space, verbally harassing staff and making it difficult for staff to carry out work on the unit. Patient's behaviors have become unsafe; she refuses to increase p.o. Prolixin and for staff and milieu safety will order Prolixin Decanoate 25 mg IM which is on her Marquis and which her guardian says patient needs and agrees she should get. PLAN: Patient is on a community Marquis extended and in effect until Nov 11, 2021. Patient has a guardian, her brother Kong Rojas Patient on?12 B Q 15 minute checks Will start Prolixin Decanoate 25 mg IM q.2 weeks, giving 1st dose today; Prolixin Dec is listed on her Marquis, reviewed by consumer loan underwriter and specified by her guardian; Patient has become verbally aggressive and physically posturing, intruding in staff's space, verbally harassing staff to the point of making it difficult for staff to carry out work *PATIENT CANNOT REFUSE PROLIXIN DEC WHICH IS COURT ORDERED ON [place] Will Continue Prolixin 1 mg p.o. b.i.d.; for 2 weeks Will get collateral from guardian I spent minutes with the patient and/or on the patient floor today, greater than?50% of which was spent counseling/coordinating care. Reason for contiued inpatient stay Substantial Risk for: harm to others and inability to function
--- NOTE | 2021-09-27 23:10 | PC.ADMIT ---
Patient is a 44 year old single, white cisgender male who was brought to the [facility] ED via ambulance from his [facility]. Precip to admission to ED was aggressive behavior toward the [facility] staff, poor impulse control and verbal altercations. At this time he he has not been consistent with medications. Poor sleep and delusional thoughts are also present. Patient has been somatically focused and wants staff to do for him what he is able to do for himself. Patient was medically cleared in the [facility] EDHe evaluated by [facility] and deemed in need of IPLOC. Patient has a history of hospitalizations but is new to . Patient's admission diagnosis: Unspecified anxiety disorder. No remarkable medical issues noted in the ED report. During the admission process, patient was hyperverbal, with flight of ideas. He was unable to stay on topic. Patient spoke about cysters (cysts) that he has on his butt and other places in his private area . This keno writer said that we could probably let the provider know his concerns. Provider was made aware of admission and patient orders were put in. Patient will be on 15 minute safety checks. Patient arrival time on was 1515.
[2021-09-28] MEDS: fluPHENAZine HCl 1 MG TABLET PO ×2 (08:42→20:58)
--- NOTE | 2021-09-28 10:45 | HO.PSYCHPN ---
Subjective Subjective Date of Service: 09/28/21 Reason For Visit: SECTION 12, THOUGHTS TO HARM OTHERS Interim History: pt is superficially polite on approach. She agrees to sit down with telegraphic typewriter repairer and social services technician but insists on being called Dr. Vaishali rojas. Patient becomes very quickly agitated when telegraphic typewriter repairer explains that she is a patient here on the unit and raises her voice and says I am a doctor. .. You are nothing. .. you are an imposter. . . You are to refer to me as doctor. Patient however was able to calm down. She remains superficially polite. She said she talked with her brother and at his request took the Prolixin Decanoate IM shot and signed the CV. She reports that she is sleeping well and she has no complaints and no requests. She denies any SI or HI or AVH. She says that I am taking my medications and there are no problems. Patient said she would ask if she had any questions. Patient remains without insight and remains delusional. Staff reports the patient continues to be guarded and paranoid, continuing to say that various staff members, physicians nurses, social workers are fake, imposters without license is. She also said something to the effect that [facility] nurses are legally medicating people and made a comment about ambulance drivers plotting against her. Mental Status Exam Mental Status Exam Narrative: ?Pt is alert and oriented; behavior is superficially cooperative and calm; dressed in same home bathrobe and pajamas with combed hair and good hygiene; mood is described as good however affect has angry, irritable edge and pt can become intensely angry; eye contact is mostly appropriate when not angry; Speech is normal rate, volume and prosody; some psychomotor agitation present; thought process is organized and goal directed; Thought content is on paranoid delusional and persecutory fears with some grandiosity; denies SI/HI or AVH;? Patients insight and judgment impaired Diagnostics Vital Signs (24Hr): BMI result Body Mass Index 26.6 Labs Results: 09/22/21 17:48 09/22/21 17:48 Medications Medications Current Medications Acetaminophen (Acetaminophen 325 Mg Tablet) 650 mg PO Q6H PRN PRN Reason: Headache/Pain Mild Scale (1-3) Al Hydroxide/Mg Hydroxide (Magnesium Hydrox/Alum Hydrox 30 Ml Oral.Susp) 30 ml PO Q6H PRN PRN Reason: Heartburn/Nausea Fluphenazine Decanoate (Fluphenazine Decanoate 25 Mg/Ml Vial) 25 mg IM Q14D@0900 [facility] Last Admin: 09/27/21 17:30 Dose: 25 mg Documented by: Fluphenazine HCl (Fluphenazine Hcl 1 Mg Tablet) [address] [facility] Last Admin: 09/28/21 08:42 Dose: 1 mg Documented by: Hydroxyzine HCl (Hydroxyzine Hcl 25 Mg Tablet) 25 mg PO BEDTIME PRN PRN Reason: Anxiety Lorazepam (Lorazepam 1 Mg Tablet) 1 mg PO TID PRN PRN Reason: anxiety Magnesium Hydroxide (Milk Of Magnesia 30 Ml Oral.Susp) 30 ml PO DAILY PRN PRN Reason: Constipation Non-Formulary Medication ( Fluphenazine 1 Mg/0. 4 Ml) 1 each IM BID PRN PRN Reason: IF PO DOSE REFUSED Pharmacy Consult (Consult Rx Perform Med Rec) 1 each MISCELLANE ONCE PRN PRN Reason: Consult order Trazodone HCl (Trazodone Hcl 50 Mg Tablet) 50 mg PO BEDTIME PRN PRN Reason: Insomnia Allergies Allergies Allergy/AdvReac Type Severity Reaction Status Date / Time cashew nut Allergy Severe ANAPHYLAXIS Unverified 06/10/20 17:14 peanut [Peanut] Allergy Severe ANAPHALAXIS Unverified 06/10/20 17:14 Assessment & Plan Assessment & Plan (1) Paranoid: Status: Acute Code(s): F22 - Delusional disorders Assessment and Plan: believes food and medicine are poisoned and that the [facility] police are controlling her due to her refusal to work with them (2) Delusional disorder: Status: Acute Code(s): F22 - Delusional disorders Assessment and Plan: Patient is a 61-year-old female with history of Schizophrenia, on a community Espinoza and with her brother as guardian, who presents via EMS following a wellness check by [facility] staff and police who found patient's apartment in a disheveled state and patient with paranoid delusions that her food was poisoned, there were bombs in the toilet and that [facility] staff was a part of the [facility] secret police who were planning her demise, in the face of going off her? Prolixin Decanoate this past December.? On admission she denied any SI, HI, AVH or any delusional thinking; she also denied that any of the reported events or findings from [facility]'s wellness check were true and denied that she has a mental illness.? Patient refused to sign in and was on a 12 B.? Patient was willing to take Prolixin p.o. She lacks all insight. Patient continues to lack all insight and has become verbally aggressive physically posturing with menacing affect, intruding into staff's personal space, verbally harassing staff and making it difficult for staff to carry out work on the unit. Patient's behaviors have become unsafe; she refuses to increase p.o. Prolixin and for staff and milieu safety will order Prolixin Decanoate 25 mg IM which is on her Espinoza and which her guardian says patient needs and agrees she should get. -patient superficially polite but easily triggered and intense anger; remains with paranoid, persecutory delusions and some grandiosity PLAN: Patient is on a Sakti3 extended and in effect until Nov 11, 2021. Patient has a guardian, her brother Kong Rojas pt signed CV Q 15 minute checks Received Prolixin Decanoate 25 mg IM (on 09/27/21) Prolixin Dec is listed on her Espinoza, reviewed by telegraphic typewriter repairer and specified by her guardian *PATIENT CANNOT REFUSE PROLIXIN DEC WHICH IS COURT ORDERED ON ESPINOZA Will Continue Prolixin 1 mg p.o. b.i.d.; for 2 weeks I spent minutes with the patient and/or on the patient floor today, greater than?50% of which was spent counseling/coordinating care. Reason for contiued inpatient stay Substantial Risk for: harm to self, inability to function and rapid decompensation
[2021-09-29] MEDS: fluPHENAZine HCl 1 MG TABLET PO ×2 (08:31→21:59)
--- NOTE | 2021-09-29 10:32 | HO.PSYCHPN ---
Subjective Subjective Date of Service: 09/29/21 Reason For Visit: SECTION 12, THOUGHTS TO HARM OTHERS Interim History: Patient lying in bed awake. Superficially polite and cooperative, calm. Patient says that she is doing well, slept well last night. She says she is feeling tired today but denies any other symptoms, malaise, headache, GI discomfort or chills. She denies any medication side effects and has no complaints and no requests. Outside Plant Supervisor explains that it will likely be necessary to increase p.o. Prolixin dose as it is currently low and there is a need to overlap p.o. with Decanoate; patient asks if we could wait another day or so before doing this to which feature writer agrees. Mental Status Exam Mental Status Exam Narrative: Pt is alert and oriented; behavior is superficially cooperative and calm but guarded; dressed in same home bathrobe and pajamas with combed hair and good hygiene; mood is described as good and affect congruent; no irritable edge;? eye contact is appropriate; Speech is normal rate, volume and prosody; no some psychomotor agitation present; thought process is organized and goal directed; Thought content is on paranoid delusional and persecutory fears with some grandiosity; denies SI/HI or AVH;? Patients insight and judgment impaired Diagnostics Vital Signs (24Hr): BMI result Body Mass Index 26.6 Labs Results: 09/22/21 17:48 09/22/21 17:48 Medications Medications Current Medications Acetaminophen (Acetaminophen 325 Mg Tablet) 650 mg PO Q6H PRN PRN Reason: Headache/Pain Mild Scale (1-3) Al Hydroxide/Mg Hydroxide (Magnesium Hydrox/Alum Hydrox 30 Ml Oral.Susp) 30 ml PO Q6H PRN PRN Reason: Heartburn/Nausea Fluphenazine Decanoate (Fluphenazine Decanoate 25 Mg/Ml Vial) 25 mg IM Q14D@0900 [facility] Last Admin: 09/27/21 17:30 Dose: 25 mg Documented by: Fluphenazine HCl (Fluphenazine Hcl 1 Mg Tablet) 1 mg PO BID [facility] Last Admin: 09/29/21 08:31 Dose: 1 mg Documented by: Hydroxyzine HCl (Hydroxyzine Hcl 25 Mg Tablet) 25 mg PO BEDTIME PRN PRN Reason: Anxiety Lorazepam (Lorazepam 1 Mg Tablet) 1 mg PO TID PRN PRN Reason: anxiety Magnesium Hydroxide (Milk Of Magnesia 30 Ml Oral.Susp) 30 ml PO DAILY PRN PRN Reason: Constipation Non-Formulary Medication ( Fluphenazine 1 Mg/0. 4 Ml) 1 each IM BID PRN PRN Reason: IF PO DOSE REFUSED Pharmacy Consult (Consult Rx Perform Med Rec) 1 each MISCELLANE ONCE PRN PRN Reason: Consult order Trazodone HCl (Trazodone Hcl 50 Mg Tablet) 50 mg PO BEDTIME PRN PRN Reason: Insomnia Allergies Allergies Allergy/AdvReac Type Severity Reaction Status Date / Time cashew nut Allergy Severe ANAPHYLAXIS Unverified 06/10/20 17:14 peanut [Peanut] Allergy Severe ANAPHALAXIS Unverified 06/10/20 17:14 Assessment & Plan Assessment & Plan (1) Paranoid: Status: Acute Code(s): F22 - Delusional disorders Assessment and Plan: believes food and medicine are poisoned and that the [facility] police are controlling her due to her refusal to work with them (2) Delusional disorder: Status: Acute Code(s): F22 - Delusional disorders Assessment and Plan: Patient is a 61-year-old female with history of Schizophrenia, on a community Espinoza and with her brother as guardian, who presents via EMS following a wellness check by [facility] staff and police who found patient's apartment in a disheveled state and patient with paranoid delusions that her food was poisoned, there were bombs in the toilet and that [facility] staff was a part of the [place] secret police who were planning her demise, in the face of going off her? Prolixin Decanoate this past December.? On admission she denied any SI, HI, AVH or any delusional thinking; she also denied that any of the reported events or findings from [facility]'s wellness check were true and denied that she has a mental illness.? Patient refused to sign in and was on a 12 B.? Patient was willing to take Prolixin p.o. She lacks all insight. Patient continues to lack all insight and has become verbally aggressive physically posturing with menacing affect, intruding into staff's personal space, verbally harassing staff and making it difficult for staff to carry out work on the unit. Patient's behaviors have become unsafe; she refuses to increase p.o. Prolixin and for staff and milieu safety will order Prolixin Decanoate 25 mg IM which is on her Espinoza and which her guardian says patient needs and agrees she should get. -patient superficially polite but easily triggered and intense anger; remains with paranoid, persecutory delusions and some grandiosity PLAN: Patient is on a community Espinoza extended and in effect until Nov 11, 2021. Patient has a guardian, her brother Kong Guillaume pt signed CV Q 15 minute checks 1:1 while awake as patient is trying to interrupt other peers treatment by intentionally trying to disparage staff towards them Will Continue Prolixin PO for few weeks to overlap Decanoate Will likely need to increase Prolixin dose as it's subtherapeutic for overlapping with Decanoate 25 mg Received Prolixin Decanoate 25 mg IM (on 09/27/21) Prolixin Dec is listed on her Espinoza, reviewed by feature writer and specified by her guardian *PATIENT CANNOT REFUSE PROLIXIN DEC WHICH IS COURT ORDERED ON ESPINOZA I spent minutes with the patient and/or on the patient floor today, greater than?50% of which was spent counseling/coordinating care. Reason for contiued inpatient stay Substantial Risk for: inability to function and rapid decompensation
[2021-09-30] MEDS: fluPHENAZine HCl 1 MG TABLET PO (08:38)
--- NOTE | 2021-09-30 13:35 | P.PNPSI_ITS ---
Subjective Subjective Date of Service: 09/30/21 Reason For Visit: SECTION 12, THOUGHTS TO HARM OTHERS Interim History: Patient lying in bed, awake and alert Patient is pleasant and polite. She reports that she is feeling tired but denies any other symptoms and does not feel sick; she consents to a COVID rapid test out of an abundance of caution. Patient and typewriter ribbon winder discussed increasing Prolixin p.o. medication to which she understands is a part of process when restarting Decanoate. She agrees to typewriter ribbon winder titrating dose. Otherwise patient denies any problems or complaints. Patient thankful as child welfare social worker helping her get clothes from her brother. Patient continues to refuse vitals Patient continues to refuse labs; typewriter ribbon winder asked about additional lab for TSH given that she has a history of hypothyroidism and is complaining of being tired however patient refuses saying that her levels have been monitored and are normal. Review of Systems Constitutional: Reports body ache(s) (Denies), Reports chills (Denies), Reports fatigue, Reports headache(s) (Denies) and Reports malaise (Denies) Reports headache(s) (Denies) Cardiovascular: Reports chest pain (Denies) Gastrointestinal: Reports abdominal pain (Denies) Reports headache(s) (Denies) Endocrine: Reports fatigue Mental Status Exam Mental Status Exam Narrative: ?Pt is alert and oriented; behavior is superficially cooperative and calm but guarded; dressed in same home bathrobe and pajamas with combed hair and good hygiene; mood is described as good...tired and affect congruent; no irritable edge;? eye contact is appropriate; Speech is normal rate, volume and prosody; no some psychomotor agitation present; thought process is organized and goal directed; Thought content is guarded but has been on paranoid delusional and persecutory fears with some grandiosity; denies SI/HI or AVH;? Patients i nsight and judgment impaired Diagnostics Vital Signs (24Hr): BMI result Body Mass Index 26.6 Labs Results: 09/22/21 17:48 09/22/21 17:48 Medications Medications Current Medications Acetaminophen (Acetaminophen 325 Mg Tablet) 650 mg PO Q6H PRN PRN Reason: Headache/Pain Mild Scale (1-3) Al Hydroxide/Mg Hydroxide (Magnesium Hydrox/Alum Hydrox 30 Ml Oral.Susp) 30 ml PO Q6H PRN PRN Reason: Heartburn/Nausea Fluphenazine Decanoate (Fluphenazine Decanoate 25 Mg/Ml Vial) 25 mg IM Q14D@0900 [facility] Last Admin: 09/27/21 17:30 Dose: 25 mg Documented by: Fluphenazine HCl (Fluphenazine Hcl 2.5 Mg/5 Ml Elixir) 5 mg PO BEDTIME [facility] Fluphenazine HCl (Fluphenazine Hcl 1 Mg Tablet) 1 mg PO DAILY [facility] Hydroxyzine HCl (Hydroxyzine Hcl 25 Mg Tablet) 25 mg PO BEDTIME PRN PRN Reason: Anxiety Lorazepam (Lorazepam 1 Mg Tablet) 1 mg PO TID PRN PRN Reason: anxiety Magnesium Hydroxide (Milk Of Magnesia 30 Ml Oral.Susp) 30 ml PO DAILY PRN PRN Reason: Constipation Non-Formulary Medication ( Fluphenazine 1 Mg/0. 4 Ml) 1 each IM BID PRN PRN Reason: IF PO DOSE REFUSED Pharmacy Consult (Consult Rx Perform Med Rec) 1 each MISCELLANE ONCE PRN PRN Reason: Consult order Trazodone HCl (Trazodone Hcl 50 Mg Tablet) 50 mg PO BEDTIME PRN PRN Reason: Insomnia Allergies Allergies Allergy/AdvReac Type Severity Reaction Status Date / Time cashew nut Allergy Severe ANAPHYLAXIS Unverified 06/10/20 17:14 peanut [Peanut] Allergy Severe ANAPHALAXIS Unverified 06/10/20 17:14 Assessment & Plan Assessment & Plan (1) Paranoid: Status: Acute Code(s): F22 - Delusional disorders Assessment and Plan: believes food and medicine are poisoned and that the [facility] police are controlling her due to her refusal to work with them (2) Delusional disorder: Status: Acute Code(s): F22 - Delusional disorders Assessment and Plan: Patient is a 61-year-old female with history of Schizophrenia, on a community Marquis and with her brother as guardian, who presents via EMS following a wellness check by [facility] staff and police who found patient's apartment in a disheveled state and patient with paranoid delusions that her food was poisoned, there were bombs in the toilet and that [facility] staff was a part of the [place] secret police who were planning her demise, in the face of going off her? Prolixin Decanoate this past December.? On admission she denied any SI, HI, AVH or any delusional thinking; she also denied that any of the reported events or findings from [facility]'s wellness check were true and denied that she has a mental illness.? Patient refused to sign in and was on a 12 B.? Patient was willing to take Prolixin p.o. She lacks all insight. HOSPITAL COURSE: Patient continues to lack all insight and has become verbally aggressive physically posturing with menacing affect, intruding into staff's personal space, verbally harassing staff and making it difficult for staff to carry out work on the unit. Patient's behaviors have become unsafe; she refuses to increase p.o. Prolixin and for staff and milieu safety will order Prolixin Decanoate 25 mg IM which is on her Marquis and which her guardian says patient needs and agrees she should get. -signed CV after talking with guardian; also agreed with Prolixin Decanoate -patient superficially polite but easily triggered and intense anger; remains with paranoid, persecutory delusions and some grandiosity 09/30 patient remains superficially polite; guarded. She has not been challenging staff. Patient reports she is tired but denies any symptoms; agrees to increasing Prolixin p.o. (which is on Marquis and cannot be refused) -Prolixin 25 mg decanoate is roughly equivalent to getting Prolixin 20 mg p.o. daily; additionally p.o. doses are overlapped for several weeks after restarting Decanoate. Patient gets Decanoate every 2 weeks and literature typically uses q. 3 weeks for conversion so will titrate p.o. Prolixin to about 15 mg daily. Discussed with patient who agrees PLAN: Patient is on a community Marquis extended and in effect until Nov 11, 2021. Patient has a guardian, her brother Kong Guillaume pt signed CV Q 15 minute checks Will DC 1:1 since vulnerable pt now off unit; staff will monitor as patient can get intrusive and interfere with others treatment by trying to disparage staff and whispering delusions) 1. reports Tired: likely from restarting Prolixin -Ordered Covid test; patient denies all other associated symptoms and is afebrile however will get test out of and abundance of caution 2. Schizophrenia: -patient on community Marquis and cannot refuse Prolixin MEDS: Prolixin 1mg Qam (*PATIENT CANNOT REFUSE PROLIXIN PO; give IM prolixin if refuses) Prolixin 5mg qhs (*PATIENT CANNOT REFUSE PROLIXIN PO; give IM prolixin if refuses) Prolixin PO for few weeks to overlap Decanoate Will likely need to increase Prolixin dose as it's subtherapeutic for overlapping with Decanoate 25 mg Received Prolixin Decanoate 25 mg IM (on 09/27/21) Prolixin Dec is listed on her Marquis (CANNOT REFUSE), reviewed by typewriter ribbon winder and specified by her guardian (literature report decanoate q. 3 weeks or longer has been as effective as q.2 weeks which is something patient can discuss with outpatient provider but is something that may reduce side-effects and thus increase adherence) I spent minutes with the patient and/or on the patient floor today, greater than?50% of which was spent counseling/coordinating care. Reason for contiued inpatient stay Substantial Risk for: rapid decompensation
[2021-09-30 14:38] LABS: COVID-19 Test Negative (Negative)
[2021-10-01] MEDS: fluPHENAZine HCl 1 MG TABLET PO (08:21)
--- NOTE | 2021-10-01 14:04 | HO.PSYCHPN ---
Subjective Subjective Date of Service: 10/01/21 Reason For Visit: SECTION 12, THOUGHTS TO HARM OTHERS Subjective Notes: Conditional Voluntary Interim History: Patient lying in bed, awake and alert Pleasant on approach. Pt reports feeling restless, need to move arms and legs with prolixin, no observable involuntary movement while talking with pt. Pt offered ativan but she refused due to polypharmacy although she is only on prolixin. She denied SI/HI. She is superficially cooperative, and guarded but polite. Medication Compliance: Yes Side effects from medications: No Attending Groups: No Review of Systems Review of Systems no change since transfer from ED. Pt denies any complaints of physical discomfort. Yes Unobtainable due to mental status and Other (Uncooperative) Constitutional: Reports body ache(s) (Denies), Reports chills (Denies), Reports fatigue, Reports headache(s) (Denies) and Reports malaise (Denies) Reports headache(s) (Denies) Cardiovascular: Reports chest pain (Denies) Gastrointestinal: Reports abdominal pain (Denies) Reports headache(s) (Denies) Endocrine: Reports fatigue Mental Status Exam Mental Status Exam Narrative: ?Pt is alert and oriented; behavior is superficially cooperative and calm but guarded; dressed in same home bathrobe and pajamas with combed hair and good hygiene; mood is described as good...tired and affect congruent; no irritable edge;? eye contact is appropriate; Speech is normal rate, volume and prosody; no some psychomotor agitation present; thought process is organized and goal directed; Thought content is guarded but has been on paranoid delusional and persecutory fears with some grandiosity; denies SI/HI or AVH;? Patients insight and judgment impaired Diagnostics Vital Signs (24Hr): Vital Signs - 24 hr 10/01/21 18:00 Respiratory Rate 16 BMI result Body Mass Index 26.6 Labs Results: 09/22/21 17:48 09/22/21 17:48 Labs: Laboratory Results - last 48 hr 09/30/21 14:00 COVID-19 ([facility]ARGIE) Negative COVID-19 Clin Com See Note Medications Medications Current Medications Acetaminophen (Acetaminophen 325 Mg Tablet) 650 mg PO Q6H PRN PRN Reason: Headache/Pain Mild Scale (1-3) Al Hydroxide/Mg Hydroxide (Magnesium Hydrox/Alum Hydrox 30 Ml Oral.Susp) 30 ml PO Q6H PRN PRN Reason: Heartburn/Nausea Fluphenazine Decanoate (Fluphenazine Decanoate 25 Mg/Ml Vial) 25 mg IM Q14D@0900 [facility] Last Admin: 09/27/21 17:30 Dose: 25 mg Documented by: Fluphenazine HCl (Fluphenazine Hcl 2.5 Mg/5 Ml Elixir) 5 mg PO BEDTIME [facility] Last Admin: 10/01/21 20:00 Dose: 5 mg Documented by: Fluphenazine HCl (Fluphenazine Hcl 2.5 Mg/Ml 10 Ml Vial) 5 mg IM BID PRN PRN Reason: ON MARQUIS; GIVE IF REFUSES PO Fluphenazine HCl (Fluphenazine Hcl 2.5 Mg Tablet) 2.5 mg PO DAILY [facility] Stop: 10/03/21 12:00 Last Admin: 10/02/21 08:35 Dose: 2.5 mg Documented by: Fluphenazine HCl (Fluphenazine Hcl 2.5 Mg/5 Ml Elixir) 5 mg PO DAILY [facility] Hydroxyzine HCl (Hydroxyzine Hcl 25 Mg Tablet) 25 mg PO BEDTIME PRN PRN Reason: Anxiety Lorazepam (Lorazepam 1 Mg Tablet) 1 mg PO TID PRN PRN Reason: anxiety Magnesium Hydroxide (Milk Of Magnesia 30 Ml Oral.Susp) 30 ml PO DAILY PRN PRN Reason: Constipation Melatonin (Melatonin 3 Mg Tablet) 6 mg PO BEDTIME PRN PRN Reason: Sleep Last Admin: 10/01/21 22:11 Dose: 6 mg Documented by: Pharmacy Consult (Consult Rx Perform Med Rec) 1 each MISCELLANE ONCE PRN PRN Reason: Consult order Trazodone HCl (Trazodone Hcl 50 Mg Tablet) 50 mg PO BEDTIME PRN PRN Reason: Insomnia Allergies Allergies Allergy/AdvReac Type Severity Reaction Status Date / Time cashew nut Allergy Severe ANAPHYLAXIS Unverified 06/10/20 17:14 peanut [Peanut] Allergy Severe ANAPHALAXIS Unverified 06/10/20 17:14 Assessment & Plan Assessment & Plan (1) Paranoid: Status: Acute Code(s): F22 - Delusional disorders Assessment and Plan: believes food and medicine are poisoned and that [facility] are controlling her due to her refusal to work with them (2) Delusional disorder: Status: Acute Code(s): F22 - Delusional disorders Assessment and Plan: Patient is a 61-year-old female with history of Schizophrenia, on a community Marquis and with her brother as guardian, who presents via EMS following a wellness check by [facility] staff and police who found patient's apartment in a disheveled state and patient with paranoid delusions that her food was poisoned, there were bombs in the toilet and that [facility] staff was a part of the [place] secret police who were planning her demise, in the face of going off her? Prolixin Decanoate this past December.? On admission she denied any SI, HI, AVH or any delusional thinking; she also denied that any of the reported events or findings from [facility]'s wellness check were true and denied that she has a mental illness.? Patient refused to sign in and was on a 12 B.? Patient was willing to take Prolixin p.o. She lacks all insight. HOSPITAL COURSE: Patient continues to lack all insight and has become verbally aggressive physically posturing with menacing affect, intruding into staff's personal space, verbally harassing staff and making it difficult for staff to carry out work on the unit. Patient's behaviors have become unsafe; she refuses to increase p.o. Prolixin and for staff and milieu safety will order Prolixin Decanoate 25 mg IM which is on her Marquis and which her guardian says patient needs and agrees she should get. -signed CV after talking with guardian; also agreed with Prolixin Decanoate -patient superficially polite but easily triggered and intense anger; remains with paranoid, persecutory delusions and some grandiosity 09/30 patient remains superficially polite; guarded. She has not been challenging staff. Patient reports she is tired but denies any symptoms; agrees to increasing Prolixin p.o. (which is on Marquis and cannot be refused) -Prolixin 25 mg decanoate is roughly equivalent to getting Prolixin 20 mg p.o. daily; additionally p.o. doses are overlapped for several weeks after restarting Decanoate. Patient gets Decanoate every 2 weeks and literature typically uses q. 3 weeks for conversion so will titrate p.o. Prolixin to about 15 mg daily. Discussed with patient who agrees PLAN: Patient is on a community Marquis extended and in effect until Nov 11, 2021. Patient has a guardian, her brother Kong Guillaume pt signed CV Q 15 minute checks Will DC 1:1 since vulnerable pt now off unit; staff will monitor as patient can get intrusive and interfere with others treatment by trying to disparage staff and whispering delusions) 1. reports Tired: likely from restarting Prolixin -Ordered Covid test; patient denies all other associated symptoms and is afebrile however will get test out of and abundance of caution 2. Schizophrenia: -patient on community Marquis and cannot refuse Prolixin MEDS: Prolixin 1mg Qam (*PATIENT CANNOT REFUSE PROLIXIN PO; give IM prolixin if refuses) Prolixin 5mg qhs (*PATIENT CANNOT REFUSE PROLIXIN PO; give IM prolixin if refuses) Prolixin PO for few weeks to overlap Decanoate Will likely need to increase Prolixin dose as it's subtherapeutic for overlapping with Decanoate 25 mg Received Prolixin Decanoate 25 mg IM (on 09/27/21) Prolixin Dec is listed on her Marquis (CANNOT REFUSE), reviewed by conventional underwriter and specified by her guardian (literature report decanoate q. 3 weeks or longer has been as effective as q.2 weeks which is something patient can discuss with outpatient provider but is something that may reduce side-effects and thus increase adherence) 10/01- continue per primary treatment team I spent minutes with the patient and/or on the patient floor today, greater than?50% of which was spent counseling/coordinating care. Reason for contiued inpatient stay Substantial Risk for: inability to function
[2021-10-01 18:00] VITALS: RESP 16
[2021-10-01] MEDS: Melatonin 3 MG TABLET 6 MG PO (22:11)
[2021-10-02] MEDS: fluPHENAZine HCl 2.5 MG TABLET PO (08:35)
--- NOTE | 2021-10-02 12:07 | HO.PSYCHPN ---
Subjective Subjective Date of Service: 10/02/21 Reason For Visit: SECTION 12, THOUGHTS TO HARM OTHERS Interim History: Patient lying in bed, awake and alert Pt reports she slept better with melatonin. She reports she is taking medication- prolixin to avoid getting IM medication. She reports she knows that injection she got is of elephant, opioid stronger than fentanyl. She also reports that peer got an IM with LSD. She believes hospital making people more psychotic. Pt denies having a mental illness that it is conspiracy that she is in hospital and that other pts kept without reason on the psych unit. She denied SI/HI. She is superficially cooperative, and guarded but polite. Review of Systems Review of Systems no change since transfer from ED. Pt denies any complaints of physical discomfort. Yes Unobtainable due to mental status and Other (Uncooperative) Constitutional: Reports body ache(s) (Denies), Reports chills (Denies), Reports fatigue, Reports headache(s) (Denies) and Reports malaise (Denies) Reports headache(s) (Denies) Cardiovascular: Reports chest pain (Denies) Gastrointestinal: Reports abdominal pain (Denies) Reports headache(s) (Denies) Endocrine: Reports fatigue Mental Status Exam Mental Status Exam Narrative: ?Pt is alert and oriented; behavior is superficially cooperative and calm but guarded; dressed in same home bathrobe and pajamas with combed hair and good hygiene; mood is described as good...tired and affect congruent; no irritable edge;? eye contact is appropriate; Speech is normal rate, volume and prosody; no some psychomotor agitation present; thought process is organized and goal directed; Thought content is guarded but has been on paranoid delusional and persecutory fears with some grandiosity; denies SI/HI or AVH;? Patients insight and judgment impaired Diagnostics Vital Signs (24Hr): Vital Signs - 24 hr 10/01/21 18:00 Respiratory Rate 16 BMI result Body Mass Index 26.6 Labs Results: 09/22/21 17:48 09/22/21 17:48 Labs: Laboratory Results - last 48 hr 09/30/21 14:00 COVID-19 ([facility]) Negative COVID-19 Clin Com See Note Medications Medications Current Medications Acetaminophen (Acetaminophen 325 Mg Tablet) 650 mg PO Q6H PRN PRN Reason: Headache/Pain Mild Scale (1-3) Al Hydroxide/Mg Hydroxide (Magnesium Hydrox/Alum Hydrox 30 Ml Oral.Susp) 30 ml PO Q6H PRN PRN Reason: Heartburn/Nausea Fluphenazine Decanoate (Fluphenazine Decanoate 25 Mg/Ml Vial) 25 mg IM Q14D@0900 [facility] Last Admin: 09/27/21 17:30 Dose: 25 mg Documented by: Fluphenazine HCl (Fluphenazine Hcl 2.5 Mg/5 Ml Elixir) 5 mg PO BEDTIME [facility] Last Admin: 10/01/21 20:00 Dose: 5 mg Documented by: Fluphenazine HCl (Fluphenazine Hcl 2.5 Mg/Ml 10 Ml Vial) 5 mg IM BID PRN PRN Reason: ON MARQUIS; GIVE IF REFUSES PO Fluphenazine HCl (Fluphenazine Hcl 2.5 Mg Tablet) 2.5 mg PO DAILY [facility] Stop: 10/03/21 12:00 Last Admin: 10/02/21 08:35 Dose: 2.5 mg Documented by: Fluphenazine HCl (Fluphenazine Hcl 2.5 Mg/5 Ml Elixir) 5 mg PO DAILY [facility] Hydroxyzine HCl (Hydroxyzine Hcl 25 Mg Tablet) 25 mg PO BEDTIME PRN PRN Reason: Anxiety Lorazepam (Lorazepam 1 Mg Tablet) 1 mg PO TID PRN PRN Reason: anxiety Magnesium Hydroxide (Milk Of Magnesia 30 Ml Oral.Susp) 30 ml PO DAILY PRN PRN Reason: Constipation Melatonin (Melatonin 3 Mg Tablet) 6 mg PO BEDTIME PRN PRN Reason: Sleep Last Admin: 10/01/21 22:11 Dose: 6 mg Documented by: Pharmacy Consult (Consult Rx Perform Med Rec) 1 each MISCELLANE ONCE PRN PRN Reason: Consult order Trazodone HCl (Trazodone Hcl 50 Mg Tablet) 50 mg PO BEDTIME PRN PRN Reason: Insomnia Allergies Allergies Allergy/AdvReac Type Severity Reaction Status Date / Time cashew nut Allergy Severe ANAPHYLAXIS Unverified 06/10/20 17:14 peanut [Peanut] Allergy Severe ANAPHALAXIS Unverified 06/10/20 17:14 Assessment & Plan Assessment & Plan (1) Paranoid: Status: Acute Code(s): F22 - Delusional disorders Assessment and Plan: believes food and medicine are poisoned and that the [place] police are controlling her due to her refusal to work with them (2) Delusional disorder: Status: Acute Code(s): F22 - Delusional disorders Assessment and Plan: Patient is a 61-year-old female with history of Schizophrenia, on a community Marquis and with her brother as guardian, who presents via EMS following a wellness check by [facility] staff and police who found patient's apartment in a disheveled state and patient with paranoid delusions that her food was poisoned, there were bombs in the toilet and that [facility] staff was a part of the [place] secret police who were planning her demise, in the face of going off her? Prolixin Decanoate this past December.? On admission she denied any SI, HI, AVH or any delusional thinking; she also denied that any of the reported events or findings from [facility]'s wellness check were true and denied that she has a mental illness.? Patient refused to sign in and was on a 12 B.? Patient was willing to take Prolixin p.o. She lacks all insight. HOSPITAL COURSE: Patient continues to lack all insight and has become verbally aggressive physically posturing with menacing affect, intruding into staff's personal space, verbally harassing staff and making it difficult for staff to carry out work on the unit. Patient's behaviors have become unsafe; she refuses to increase p.o. Prolixin and for staff and milieu safety will order Prolixin Decanoate 25 mg IM which is on her Marquis and which her guardian says patient needs and agrees she should get. -signed CV after talking with guardian; also agreed with Prolixin Decanoate -patient superficially polite but easily triggered and intense anger; remains with paranoid, persecutory delusions and some grandiosity 09/30 patient remains superficially polite; guarded. She has not been challenging staff. Patient reports she is tired but denies any symptoms; agrees to increasing Prolixin p.o. (which is on Marquis and cannot be refused) -Prolixin 25 mg decanoate is roughly equivalent to getting Prolixin 20 mg p.o. daily; additionally p.o. doses are overlapped for several weeks after restarting Decanoate. Patient gets Decanoate every 2 weeks and literature typically uses q. 3 weeks for conversion so will titrate p.o. Prolixin to about 15 mg daily. Discussed with patient who agrees PLAN: Patient is on a community Marquis extended and in effect until Nov 11, 2021. Patient has a guardian, her brother Kong Guillaume pt signed CV Q 15 minute checks Will DC 1:1 since vulnerable pt now off unit; staff will monitor as patient can get intrusive and interfere with others treatment by trying to disparage staff and whispering delusions) 1. reports Tired: likely from restarting Prolixin -Ordered Covid test; patient denies all other associated symptoms and is afebrile however will get test out of and abundance of caution 2. Schizophrenia: -patient on community Marquis and cannot refuse Prolixin MEDS: Prolixin 1mg Qam (*PATIENT CANNOT REFUSE PROLIXIN PO; give IM prolixin if refuses) Prolixin 5mg qhs (*PATIENT CANNOT REFUSE PROLIXIN PO; give IM prolixin if refuses) Prolixin PO for few weeks to overlap Decanoate Will likely need to increase Prolixin dose as it's subtherapeutic for overlapping with Decanoate 25 mg Received Prolixin Decanoate 25 mg IM (on 09/27/21) Prolixin Dec is listed on her Marquis (CANNOT REFUSE), reviewed by senior mortgage underwriter and specified by her guardian (literature report decanoate q. 3 weeks or longer has been as effective as q.2 weeks which is something patient can discuss with outpatient provider but is something that may reduce side-effects and thus increase adherence) 10/01- continue per primary treatment team I spent minutes with the patient and/or on the patient floor today, greater than?50% of which was spent counseling/coordinating care. Reason for contiued inpatient stay Substantial Risk for: inability to function
[2021-10-02 16:35] VITALS: RESP 12
[2021-10-02] MEDS: Melatonin 3 MG TABLET 6 MG PO (19:56)
[2021-10-03] MEDS: Melatonin 3 MG TABLET 6 MG PO (03:37)
[2021-10-03] MEDS: fluPHENAZine HCl 2.5 MG TABLET PO (08:01)
--- NOTE | 2021-10-03 10:38 | P.PNPSI_ITS ---
Subjective Subjective Date of Service: 10/03/21 Reason For Visit: SECTION 12, THOUGHTS TO HARM OTHERS Interim History: Patient superficially cooperative, polite. She says she would like an increase in her Prolixin p.o. so that she can discharge sooner. Patient hopes that discharge will be soon; she says that there are minor aggravation is on the unit and then it would be easier for her to be home; she reports she is taking her medications, is calm and that everything should be okay. She says that [facility] will set up her next outpatient Prolixin Decanoate and that she does not need to remain on the unit for that. Patient agrees that we should discuss this with her guardian who had previously told telegraphic typewriter mechanic that patient typically needs at the very least to back to back decanoate injections or otherwise to compensate quickly. Over the weekend, patient shared with on-call provider: She reports she is taking medication- prolixin to avoid getting IM medication. She reports she knows that injection she got is of elephant, opioid stronger than fentanyl. She also reports that peer got an IM with LSD. She believes hospital making people more psychotic.? Pt denies having a mental illness that it is conspiracy that she is in hospital and that other pts kept without reason on the psych unit... Mental Status Exam Mental Status Exam Narrative: Pt is alert and oriented; behavior is superficially cooperative and calm but guarded; dressed in same home bathrobe and pajamas with combed hair and good hygiene; mood is described as good and affect congruent; no irritable edge;? eye contact is appropriate; Speech is normal rate, volume and prosody; no some psychomotor agitation present; thought process is organized and goal directed; Thought content is guarded and with paranoid delusional and persecutory fears with some grandiosity; denies SI/HI or AVH;? Patients insight and judgment impaired Diagnostics Vital Signs (24Hr): Vital Signs - 24 hr 10/02/21 16:35 Respiratory Rate 12 BMI result Body Mass Index 26.6 Labs Results: 09/22/21 17:48 09/22/21 17:48 Medications Medications Current Medications Acetaminophen (Acetaminophen 325 Mg Tablet) 650 mg PO Q6H PRN PRN Reason: Headache/Pain Mild Scale (1-3) Al Hydroxide/Mg Hydroxide (Magnesium Hydrox/Alum Hydrox 30 Ml Oral.Susp) 30 ml PO Q6H PRN PRN Reason: Heartburn/Nausea Fluphenazine Decanoate (Fluphenazine Decanoate 25 Mg/Ml Vial) 25 mg IM Q14D@0900 [facility] Last Admin: 09/27/21 17:30 Dose: 25 mg Documented by: Fluphenazine HCl (Fluphenazine Hcl 2.5 Mg/5 Ml Elixir) 5 mg PO BEDTIME [facility] Last Admin: 10/02/21 19:56 Dose: 5 mg Documented by: Fluphenazine HCl (Fluphenazine Hcl 2.5 Mg/Ml 10 Ml Vial) 5 mg IM BID PRN PRN Reason: ON MARQUIS; GIVE IF REFUSES PO Fluphenazine HCl (Fluphenazine Hcl 2.5 Mg Tablet) 2.5 mg PO DAILY [facility] Stop: 10/03/21 12:00 Last Admin: 10/03/21 08:01 Dose: 2.5 mg Documented by: Fluphenazine HCl (Fluphenazine Hcl 2.5 Mg/5 Ml Elixir) 5 mg PO DAILY [facility] Hydroxyzine HCl (Hydroxyzine Hcl 25 Mg Tablet) 25 mg PO BEDTIME PRN PRN Reason: Anxiety Magnesium Hydroxide (Milk Of Magnesia 30 Ml Oral.Susp) 30 ml PO DAILY PRN PRN Reason: Constipation Melatonin (Melatonin 3 Mg Tablet) 6 mg PO BEDTIME PRN PRN Reason: Sleep Last Admin: 10/03/21 03:37 Dose: 3 mg Documented by: Pharmacy Consult (Consult Rx Perform Med Rec) 1 each MISCELLANE ONCE PRN PRN Reason: Consult order Trazodone HCl (Trazodone Hcl 50 Mg Tablet) 50 mg PO BEDTIME PRN PRN Reason: Insomnia Allergies Allergies Allergy/AdvReac Type Severity Reaction Status Date / Time cashew nut Allergy Severe ANAPHYLAXIS Unverified 06/10/20 17:14 peanut [Peanut] Allergy Severe ANAPHALAXIS Unverified 06/10/20 17:14 Assessment & Plan Assessment & Plan (1) Paranoid: Status: Acute Code(s): F22 - Delusional disorders Assessment and Plan: believes food and medicine are poisoned and that the [employer] police are controlling her due to her refusal to work with them (2) Delusional disorder: Status: Acute Code(s): F22 - Delusional disorders Assessment and Plan: Patient is a 61-year-old female with history of Schizophrenia, on a community Marquis and with her brother as guardian, who presents via EMS following a wellness check by [facility] staff and police who found patient's apartment in a disheveled state and patient with paranoid delusions that her food was poisoned, there were bombs in the toilet and that [facility] staff was a part of the [place] secret police who were planning her demise, in the face of going off her? Prolixin Decanoate this past December.? On admission she denied any SI, HI, AVH or any delusional thinking; she also denied that any of the reported events or findings from [facility]'s wellness check were true and denied that she has a mental illness.? Patient refused to sign in and was on a 12 B.? Patient was willing to take Prolixin p.o. She lacks all insight. HOSPITAL COURSE: Patient continues to lack all insight and has become verbally aggressive physically posturing with menacing affect, intruding into staff's personal space, verbally harassing staff and making it difficult for staff to carry out work on the unit. Patient's behaviors have become unsafe; she refuses to increase p.o. Prolixin and for staff and milieu safety will order Prolixin Decanoate 25 mg IM which is on her Marquis and which her guardian says patient needs and agrees she should get. -signed CV after talking with guardian; also agreed with Prolixin Decanoate -patient superficially polite but easily triggered and intense anger; remains with paranoid, persecutory delusions and some grandiosity 09/30 patient remains superficially polite; guarded. She has not been challenging staff. Patient reports she is tired but denies any symptoms; agrees to increasing Prolixin p.o. (which is on Marquis and cannot be refused) -Prolixin 25 mg decanoate is roughly equivalent to getting Prolixin 20 mg p.o. daily; additionally p.o. doses are overlapped for several weeks after restarting Decanoate. Patient gets Decanoate every 2 weeks and literature typically uses q. 3 weeks for conversion so will titrate p.o. Prolixin to about 15 mg daily. Discussed with patient who agrees 10/02 remains superficially polite; is guarded and continues to have paranoid, persecutory delusions PLAN: Patient is on a community Marquis extended and in effect until Nov 11, 2021. Patient has a guardian, her brother Kong Guillaume pt signed CV Q 15 minute checks Will DC 1:1 since vulnerable pt now off unit; staff will monitor as patient can get intrusive and interfere with others treatment by trying to disparage staff and whispering delusions) 1. Schizophrenia: -patient on community Marquis and cannot refuse Prolixin MEDS: INCREASED to Prolixin 5mg Qam on 10/03 (*PATIENT CANNOT REFUSE PROLIXIN PO; give IM prolixin if refuses) INCREASED to Prolixin 10mg qhs on 10/03 (*PATIENT CANNOT REFUSE PROLIXIN PO; give IM prolixin if refuses) Prolixin PO for few weeks to overlap Decanoate (Decanoate 25 mg Q 2/3 weeks is roughly equivalent to Prolixin p.o. 20 mg daily; have titrated to 15 mg total daily dose for now) Will likely need to increase Prolixin dose as it's subtherapeutic for overlapping with Decanoate 25 mg Received Prolixin Decanoate 25 mg IM (received on 09/27/21; next dose due 10/11/21) Prolixin Dec is listed on her Marquis (CANNOT REFUSE), reviewed by telegraphic typewriter mechanic and specified by her guardian (literature reports decanoate q. 3 weeks or longer has been as effective as q.2 weeks which is something patient can discuss with outpatient provider but is something that may reduce side-effects and thus increase adherence) 2. reports Tired: likely from restarting Prolixin; Ordered Covid test which was negagive; denies other symptoms I spent minutes with the patient and/or on the patient floor today, greater than?50% of which was spent counseling/coordinating care. Reason for contiued inpatient stay Substantial Risk for: inability to function
[2021-10-03 16:48] VITALS: RESP 16
[2021-10-03] MEDS: Melatonin 3 MG TABLET 9 MG PO (19:42)
--- NOTE | 2021-10-04 11:06 | P.PNPSI_ITS ---
Subjective Subjective Date of Service: 10/04/21 Reason For Visit: SECTION 12, THOUGHTS TO HARM OTHERS Interim History: met with patient and MATTEO Aimee Pt said she's good. She felt the PO Prolixin at bedtime made her restless a bit and so she asked for p.r.n. melatonin. Patient said that she is doing well, cooperative, taking her medication and would like to discharge home this week and continue getting her Decanoate as an outpatient. Postal Supervisor discussed her comments made to the on-call provider this past weekend, regarding that patients have been getting shot up with LSD and her concerns that staff are fake. Patient said that she was told by her peer that he got an IM of LSD and that she just repeated what he said. She said that at 1st she was worried that people were being held on the unit without reason, however she says she has been watching and has been seen that people are in fact getting discharged which she says has helped her feel more at ease. She has also said that she does not know why she is here but has come to accept it and though she does not understand she agrees to take medications. Regarding her previous statements that this senior technical writer is not an actual physician patient said she does not want to get into that but has come to see that this senior technical writer seems to know what [he is] talking about and she is comfortable with continued treatment. Patient accepts that senior technical writer will discuss her disposition plan with team and with her guardian; to that and patient asks for her Prolixin dose to be increased at bedtime, hoping that the increased amount will accelerate her progress towards discharge. Patient continues to refuse labs including A1c, lipids or TSH; frequently refuses vitals Patient has said she feels tired and senior technical writer has discussed her history of hypothyroidism and medication of levothyroxine, however patient says that she is fine and does not want labs drawn. Mental Status Exam Mental Status Exam Narrative: ?Pt is alert and oriented; behavior is superficially cooperative and calm but guarded; dressed in some new cloths which are appropriate and neat; combed hair and good hygiene; mood is described as good and affect congruent; no irritable edge;? eye contact is appropriate; Speech is normal rate, volume and prosody; no some psychomotor agitation present; thought process is organized and goal directed; Thought content is guarded and with paranoid delusional and persecutory fears but these seem to be lessening in intensity; no grandiosity expressed; denies SI/HI or AVH;? Patients insight and judgment impaired Diagnostics Vital Signs (24Hr): Vital Signs - 24 hr 10/03/21 16:48 Respiratory Rate 16 BMI result Body Mass Index 26.6 Labs Results: 09/22/21 17:48 09/22/21 17:48 Medications Medications Current Medications Acetaminophen (Acetaminophen 325 Mg Tablet) 650 mg PO Q6H PRN PRN Reason: Headache/Pain Mild Scale (1-3) Al Hydroxide/Mg Hydroxide (Magnesium Hydrox/Alum Hydrox 30 Ml Oral.Susp) 30 ml PO Q6H PRN PRN Reason: Heartburn/Nausea Fluphenazine Decanoate (Fluphenazine Decanoate 25 Mg/Ml Vial) 25 mg IM Q14D@0900 [facility] Last Admin: 09/27/21 17:30 Dose: 25 mg Documented by: Fluphenazine HCl (Fluphenazine Hcl 2.5 Mg/Ml 10 Ml Vial) 5 mg IM BID PRN PRN Reason: ON MARQUIS; GIVE IF REFUSES PO Fluphenazine HCl (Fluphenazine Hcl 2.5 Mg/5 Ml Elixir) 5 mg PO DAILY [facility] Last Admin: 10/04/21 08:20 Dose: 5 mg Documented by: Fluphenazine HCl (Fluphenazine Hcl 2.5 Mg/5 Ml Elixir) 10 mg PO BEDTIME [facility] Last Admin: 10/03/21 19:41 Dose: 10 mg Documented by: Hydroxyzine HCl (Hydroxyzine Hcl 25 Mg Tablet) 25 mg PO BEDTIME PRN PRN Reason: Anxiety Magnesium Hydroxide (Milk Of Magnesia 30 Ml Oral.Susp) 30 ml PO DAILY PRN PRN Reason: Constipation Melatonin (Melatonin 3 Mg Tablet) 9 mg PO BEDTIME PRN PRN Reason: Sleep Last Admin: 10/03/21 19:42 Dose: 9 mg Documented by: Pharmacy Consult (Consult Rx Perform Med Rec) 1 each MISCELLANE ONCE PRN PRN Reason: Consult order Trazodone HCl (Trazodone Hcl 50 Mg Tablet) 50 mg PO BEDTIME PRN PRN Reason: Insomnia Allergies Allergies Allergy/AdvReac Type Severity Reaction Status Date / Time cashew nut Allergy Severe ANAPHYLAXIS Unverified 06/10/20 17:14 peanut [Peanut] Allergy Severe ANAPHALAXIS Unverified 06/10/20 17:14 Assessment & Plan Assessment & Plan (1) Delusional disorder: Status: Acute Code(s): F22 - Delusional disorders Assessment and Plan: Patient is a 61-year-old female with history of Delusional disorder (r/o schizophrenia), on a community Marquis and with her brother as guardian, who presents via EMS following a wellness check by [facility] staff and police who found patient's apartment in a disheveled state and patient with paranoid delusions that her food was poisoned, there were bombs in the toilet and that [facility] staff was a part of the [place] secret police who were planning her demise, in the face of going off her? Prolixin Decanoate this past December.? On admission she denied any SI, HI, AVH or any delusional thinking; she also denied that any of the reported events or findings from [facility]'s wellness check were true and denied that she has a mental illness.? Patient refused to sign in and was on a 12 B.? Patient was willing to take Prolixin p.o. She lacks all insight. HOSPITAL COURSE: Patient continues to lack all insight and has become verbally aggressive physically posturing with menacing affect, intruding into staff's personal space, verbally harassing staff and making it difficult for staff to carry out work on the unit. Patient's behaviors have become unsafe; she refuses to increase p.o. Prolixin and for staff and milieu safety will order Prolixin Decanoate 25 mg IM which is on her Marquis and which her guardian says patient needs and agrees she should get. -signed CV after talking with guardian; also agreed with Prolixin Decanoate -patient superficially polite but easily triggered and intense anger; remains with paranoid, persecutory delusions and some grandiosity 09/30 patient remains superficially polite; guarded. She has not been challenging staff. Patient reports she is tired but denies any symptoms; agrees to increasing Prolixin p.o. (which is on Marquis and cannot be refused) -Prolixin 25 mg decanoate is roughly equivalent to getting Prolixin 20 mg p.o. daily; additionally p.o. doses are overlapped for several weeks after restarting Decanoate. Patient gets Decanoate every 2 weeks and literature typically uses q. 3 weeks for conversion so will titrate p.o. Prolixin to about 15 mg daily. Discussed with patient who agrees 10/02 remains superficially polite; is guarded and continues to have paranoid, persecutory delusions PLAN: Patient is on a community Marquis extended and in effect until Nov 11, 2021. Patient has a guardian, her brother Kong Guillaume pt signed CV Q 15 minute checks Will DC 1:1 since vulnerable pt now off unit; staff will monitor as patient can get intrusive and interfere with others treatment by trying to disparage staff and whispering delusions) 1. Delusional disorder (not sure if AH; no disorganized behavior noted): -patient on [place] Marquis and cannot refuse Prolixin MEDS: Prolixin 5mg Qam on 10/03 (*PATIENT CANNOT REFUSE PROLIXIN PO; give IM prolixin if refuses) INCREASED to Prolixin 15mg qhs on 10/04 (*PATIENT CANNOT REFUSE PROLIXIN PO; give IM prolixin if refuses) Prolixin PO for few weeks to overlap Decanoate (Decanoate 25 mg Q 2/3 weeks is roughly equivalent to Prolixin p.o. 20 mg daily; have titrated to 15 mg total daily dose for now) Will likely need to increase Prolixin dose as it's subtherapeutic for overlapping with Decanoate 25 mg Received Prolixin Decanoate 25 mg IM (received on 09/27/21; next dose due 10/11/21) Prolixin Dec is listed on her Marquis (CANNOT REFUSE), reviewed by senior technical writer and specified by her guardian (literature reports decanoate q. 3 weeks or longer has been as effective as q.2 weeks which is something patient can discuss with outpatient provider but is something that may reduce side-effects and thus increase adherence) 2. reports Tired: likely from restarting Prolixin; Ordered Covid test which was negagive; denies other symptoms I spent minutes with the patient and/or on the patient floor today, greater than?50% of which was spent counseling/coordinating care. Reason for contiued inpatient stay Substantial Risk for: rapid decompensation
[2021-10-04] MEDS: Melatonin 3 MG TABLET 9 MG PO (19:39)
[2021-10-05] MEDS: Melatonin 3 MG TABLET PO (02:39)
[2021-10-05] MEDS: Melatonin 3 MG TABLET 9 MG PO (20:02)
--- NOTE | 2021-10-05 22:51 | P.PNPSI_ITS ---
Subjective Subjective Date of Service: 10/05/21 Reason For Visit: SECTION 12, THOUGHTS TO HARM OTHERS Interim History: Patient reports she continues to feel tired and a little restless from medication; she says it causes dry eyes but that this also goes away on its own. Patient again says she would like to discharge this but again accepts that team will have to discuss this with her guardian and after that assess and make a decision but that it is more likely patient will need to remain to get her 2nd shot at the least. She denies any other ripped [facility] or complaints. Staff reports that she mentioned she was overheard worrying that staff might be apart of [facility] but this was not discussed. Mental Status Exam Mental Status Exam Narrative: Pt is alert and oriented; behavior is superficially cooperative and calm but guarded; dressed in some new cloths which are appropriate and neat; combed hair and good hygiene; mood is described as good and affect congruent; no irritable edge;? eye contact is appropriate; Speech is normal rate, volume and prosody; no some psychomotor agitation present; thought process is organized and goal directed; Thought content is guarded and with paranoid delusional and persecutory fears but these seem to be lessening in intensity; no grandiosity expressed; denies SI/HI or AVH;? Patients insight and judgment impaired Diagnostics Vital Signs (24Hr): BMI result Body Mass Index 26.6 Labs Results: 09/22/21 17:48 09/22/21 17:48 Medications Medications Current Medications Acetaminophen (Acetaminophen 325 Mg Tablet) 650 mg PO Q6H PRN PRN Reason: Headache/Pain Mild Scale (1-3) Al Hydroxide/Mg Hydroxide (Magnesium Hydrox/Alum Hydrox 30 Ml Oral.Susp) 30 ml PO Q6H PRN PRN Reason: Heartburn/Nausea Fluphenazine Decanoate (Fluphenazine Decanoate 25 Mg/Ml Vial) 25 mg IM Q14D@0900 [facility] Last Admin: 09/27/21 17:30 Dose: 25 mg Documented by: Fluphenazine HCl (Fluphenazine Hcl 2.5 Mg/Ml 10 Ml Vial) 5 mg IM BID PRN PRN Reason: ON MARQUIS; GIVE IF REFUSES PO Fluphenazine HCl (Fluphenazine Hcl 2.5 Mg/5 Ml Elixir) 5 mg PO DAILY [facility] Last Admin: 10/05/21 08:09 Dose: 5 mg Documented by: Fluphenazine HCl (Fluphenazine Hcl 2.5 Mg/5 Ml Elixir) 15 mg PO BEDTIME [facility] Last Admin: 10/05/21 20:01 Dose: 15 mg Documented by: Hydroxyzine HCl (Hydroxyzine Hcl 25 Mg Tablet) 25 mg PO BEDTIME PRN PRN Reason: Anxiety Magnesium Hydroxide (Milk Of Magnesia 30 Ml Oral.Susp) 30 ml PO DAILY PRN PRN Reason: Constipation Melatonin (Melatonin 3 Mg Tablet) 9 mg PO BEDTIME PRN PRN Reason: Sleep Last Admin: 10/05/21 20:02 Dose: 9 mg Documented by: Melatonin (Melatonin 3 Mg Tablet) 3 mg PO BEDTIME PRN PRN Reason: CONTINUED insomnia Last Admin: 10/05/21 02:39 Dose: 3 mg Documented by: Pharmacy Consult (Consult Rx Perform Med Rec) 1 each MISCELLANE ONCE PRN PRN Reason: Consult order Trazodone HCl (Trazodone Hcl 50 Mg Tablet) 50 mg PO BEDTIME PRN PRN Reason: Insomnia Allergies Allergies Allergy/AdvReac Type Severity Reaction Status Date / Time cashew nut Allergy Severe ANAPHYLAXIS Verified 10/04/21 19:44 peanut [Peanut] Allergy Severe ANAPHALAXIS Verified 10/04/21 19:44 Assessment & Plan Assessment & Plan (1) Paranoid: Status: Acute Code(s): F22 - Delusional disorders Assessment and Plan: believes food and medicine are poisoned and that the [facility] police are controlling her due to her refusal to work with them (2) Delusional disorder: Status: Acute Code(s): F22 - Delusional disorders Assessment and Plan: Patient is a 61-year-old female with history of Delusional disorder (r/o schizophrenia), on a [employer] Marquis and with her brother as guardian, who presents via EMS following a wellness check by [facility] staff and police who found patient's apartment in a disheveled state and patient with paranoid delusions that her food was poisoned, there were bombs in the toilet and that [facility] staff was a part of the [facility] secret police who were planning her demise, in the face of going off her? Prolixin Decanoate this past December.? On admission she denied any SI, HI, AVH or any delusional thinking; she also denied that any of the reported events or findings from [facility]'s wellness check were true and denied that she has a mental illness.? Patient refused to sign in and was on a 12 B.? Patient was willing to take Prolixin p.o. She lacks all insight. HOSPITAL COURSE: Patient continues to lack all insight and has become verbally aggressive physically posturing with menacing affect, intruding into staff's personal space , verbally harassing staff and making it difficult for staff to carry out work on the unit.? Patient's behaviors have become unsafe; she refuses to increase p.o. Prolixin and for staff and milieu safety will order Prolixin Decanoate 25 mg IM which is on her Marquis and which her guardian says patient needs and agrees she should get. -signed CV after talking with guardian; also agreed with Prolixin Decanoate -patient superficially polite but easily triggered and intense anger; remains with paranoid, persecutory delusions and some grandiosity 09/30 patient remains superficially polite; guarded.? She has not been challenging staff.? Patient reports she is tired but denies any symptoms; agrees to i ncreasing Prolixin p.o. (which is on Marquis and cannot be refused) -Prolixin 25 mg decanoate is roughly equivalent to getting Prolixin 20 mg p.o. daily; additionally p.o. doses are overlapped for several weeks after restarting Decanoate.? Patient gets Decanoate every 2 weeks and literature typically uses q. 3 weeks for conversion so will titrate p.o. Prolixin to about 15 mg daily.? Discussed with patient who agrees 10/02 remains superficially polite; is guarded and continues to have paranoid, persecutory delusions 10/05 remains superficially polite; is guarded and continues to have paranoid, persecutory delusions but lessening a bit in intensity PLAN: Patient is on a?community Marquis?extended and in effect until Nov 11, 2021. Patient has a?guardian, her brother Kong Guillaume pt signed CV Q 15 minute checks Will DC 1:1 since vulnerable pt now off unit; staff will monitor as patient can get intrusive and interfere with others treatment by trying to disparage staff and whispering delusions) 1. Delusional disorder (not sure if AH; no disorganized behavior noted): -patient on [facility] Marquis and cannot refuse Prolixin MEDS: ?Prolixin 5mg Qam on 10/03 (*PATIENT CANNOT REFUSE PROLIXIN PO; give IM prolixin if refuses) Prolixin 15mg qhs on 10/04 (*PATIENT CANNOT REFUSE PROLIXIN PO; give IM prolixin if refuses) Prolixin PO for few weeks to overlap Decanoate? (Decanoate 25 mg Q 2/3 weeks is roughly equivalent to Prolixin p.o. 20 mg daily; have titrated to 15 mg total daily dose for now) Will likely need to increase Prolixin dose as it's subtherapeutic for overlapping with Decanoate 25 mg Received Prolixin Decanoate 25 mg IM (received on 09/27/21; next dose due 10/11/21) Prolixin Dec is listed on her Marquis (CANNOT REFUSE), reviewed by underwriter solicitation director and specified by her guardian (literature reports decanoate q. 3 weeks or longer has been as effective as q.2 weeks which is something patient can discuss with outpatient provider but is something that may reduce side-effects and thus increase adherence) 2. reports Tired: likely from restarting Prolixin; Ordered Covid test which was negagive; denies other symptoms I spent minutes with the patient and/or on the patient floor today, g reater than?50% of which was spent counseling/coordinating care. Reason for contiued inpatient stay Substantial Risk for: rapid decompensation
--- NOTE | 2021-10-06 17:09 | HO.PSYCHPN ---
Subjective Subjective Date of Service: 10/06/21 Reason For Visit: SECTION 12, THOUGHTS TO HARM OTHERS Interim History: Spoke with patient's guardian/brother who strongly requests that patient remain for at the very least her 2nd Decanoate shot. He is adamant that patient will stop taking her p.o. medication as soon as she is discharged and will end up back in the hospital soon. He reports this is the pattern that has remained on broken for as long as he has been a part of her care. He said that once she is stable she often remained stable and did so for 4-5 years until this recent decompensation. Kong, her brother also says that it will become more clear to staff when she is doing as she will be less guarded and more naturally interactive. He thinks that she is a little less argumentative which he cites as some improvement. Film Developer and social worker clinical met with patient. She asked for discharge but accepted that both typewriter repairer and guardian think patient needs to remain for at least 2nd dose of Prolixin Dec and maybe for a 3rd. Pt at first said she was doing fine off this med, but then conceded that following her guardians plan kept her out of the hospitial for 5 years making it granger to trust guardians judgment. She denies any psychiatric symptoms. complains of feeling restless after taking med but says she's used to it; c/o dry eyes when first wakes up but says it quickly resolves; no other complaints, no requests. Mental Status Exam Mental Status Exam Narrative: Pt is alert and oriented; behavior is superficially cooperative and calm but guarded; dressed in some new cloths which are appropriate and neat; combed hair and good hygiene; mood is described as good and affect congruent; no irritable edge;? eye contact is appropriate; Speech is normal rate, volume and prosody; no some psychomotor agitation present; thought process is organized and goal directed; Thought content is guarded and with paranoid delusional and persecutory fears but these seem to be lessening in intensity; no grandiosity expressed; denies SI/HI or AVH;? Patients insight and judgment impaired Diagnostics Vital Signs (24Hr): BMI result Body Mass Index 26.6 Labs Results: 09/22/21 17:48 09/22/21 17:48 Medications Medications Current Medications Acetaminophen (Acetaminophen 325 Mg Tablet) 650 mg PO Q6H PRN PRN Reason: Headache/Pain Mild Scale (1-3) Al Hydroxide/Mg Hydroxide (Magnesium Hydrox/Alum Hydrox 30 Ml Oral.Susp) 30 ml PO Q6H PRN PRN Reason: Heartburn/Nausea Fluphenazine Decanoate (Fluphenazine Decanoate 25 Mg/Ml Vial) 25 mg IM Q14D@0900 [facility] Last Admin: 09/27/21 17:30 Dose: 25 mg Documented by: Fluphenazine HCl (Fluphenazine Hcl 2.5 Mg/Ml 10 Ml Vial) 5 mg IM BID PRN PRN Reason: ON MARQUIS; GIVE IF REFUSES PO Fluphenazine HCl (Fluphenazine Hcl 2.5 Mg/5 Ml Elixir) 5 mg PO DAILY [facility] Last Admin: 10/06/21 08:19 Dose: 5 mg Documented by: Fluphenazine HCl (Fluphenazine Hcl 2.5 Mg/5 Ml Elixir) 15 mg PO BEDTIME [facility] Last Admin: 10/05/21 20:01 Dose: 15 mg Documented by: Hydroxyzine HCl (Hydroxyzine Hcl 25 Mg Tablet) 25 mg PO BEDTIME PRN PRN Reason: Anxiety Magnesium Hydroxide (Milk Of Magnesia 30 Ml Oral.Susp) 30 ml PO DAILY PRN PRN Reason: Constipation Melatonin (Melatonin 3 Mg Tablet) 3 mg PO BEDTIME PRN PRN Reason: CONTINUED insomnia Last Admin: 10/05/21 02:39 Dose: 3 mg Documented by: Melatonin (Melatonin 3 Mg Tablet) 3 mg PO BEDTIME [facility] Pharmacy Consult (Consult Rx Perform Med Rec) 1 each MISCELLANE ONCE PRN PRN Reason: Consult order Trazodone HCl (Trazodone Hcl 50 Mg Tablet) 50 mg PO BEDTIME PRN PRN Reason: Insomnia Allergies Allergies Allergy/AdvReac Type Severity Reaction Status Date / Time cashew nut Allergy Severe ANAPHYLAXIS Verified 10/04/21 19:44 peanut [Peanut] Allergy Severe ANAPHALAXIS Verified 10/04/21 19:44 Assessment & Plan Assessment & Plan (1) Paranoid: Status: Acute Code(s): F22 - Delusional disorders Assessment and Plan: believes food and medicine are poisoned and that the [facility] are controlling her due to her refusal to work with them (2) Delusional disorder: Status: Acute Code(s): F22 - Delusional disorders Assessment and Plan: Patient is a 61-year-old female with history of Delusional disorder (r/o schizophrenia), on a community Marquis and with her brother as guardian, who presents via EMS following a wellness check by [facility] staff and police who found patient's apartment in a disheveled state and patient with paranoid delusions that her food was poisoned, there were bombs in the toilet and that [facility] staff was a part of the [place] secret police who were planning her demise, in the face of going off her? Prolixin Decanoate this past December.? On admission she denied any SI, HI, AVH or any delusional thinking; she also denied that any of the reported events or findings from [facility]'s wellness check were true and denied that she has a mental illness.? Patient refused to sign in and was on a 12 B.? Patient was willing to take Prolixin p.o. She lacks all insight. HOSPITAL COURSE: Patient continues to lack all insight and has become verbally aggressive physically posturing with menacing affect, intruding into staff's personal space, verbally harassing staff and making it difficult for staff to carry out work on the unit.? Patient's behaviors have become unsafe; she refuses to increase p.o. Prolixin and for staff and milieu safety will order Prolixin Decanoate 25 mg IM which is on her Marquis and which her guardian says patient needs and agrees she should get. -signed CV after talking with guardian; also agreed with Prolixin Decanoate -patient superficially polite but easily triggered and intense anger; remains with paranoid, persecutory delusions and some grandiosity 09/30 patient remains superficially polite; guarded.? She has not been challenging staff.? Patient reports she is tired but denies any symptoms; agrees to increasing Prolixin p.o. (which is on Marquis and cannot be refused) -Prolixin 25 mg decanoate is roughly equivalent to getting Prolixin 20 mg p.o. daily; additionally p.o. doses are overlapped for several weeks after restarting Decanoate.? Patient gets Decanoate every 2 weeks and literature typically uses q. 3 weeks for conversion so will titrate p.o. Prolixin to about 15 mg daily.? Discussed with patient who agrees 10/02 remains superficially polite; is guarded and continues to have paranoid, persecutory delusions 10/05 remains superficially polite; is guarded and continues to have paranoid, persecutory delusions but lessening a bit in intensity PLAN: Patient is on a?community Marquis?extended and in effect until Nov 11, 2021. Patient has a?guardian, her brother Kong Guillaume pt signed CV Q 15 minute checks Will DC 1:1 staff will monitor as patient can get intrusive and interfere with others treatment by trying to disparage staff and whispering delusions) 1. Delusional disorder (not sure if AH; no disorganized behavior noted): -patient on community Marquis and cannot refuse Prolixin MEDS: ?Prolixin 5mg Qam on 10/03 (*PATIENT CANNOT REFUSE PROLIXIN PO; give IM prolixin if refuses) Prolixin 15mg qhs on 10/04 (*PATIENT CANNOT REFUSE PROLIXIN PO; give IM prolixin if refuses) Prolixin PO for few weeks to overlap Decanoate? (Decanoate 25 mg Q 2/3 weeks is roughly equivalent to Prolixin p.o. 20 mg daily; have titrated to 15 mg total daily dose for now) Will likely need to increase Prolixin dose as it's subtherapeutic for overlapping with Decanoate 25 mg Received Prolixin Decanoate 25 mg IM (received on 09/27/21; next dose due 10/11/21) Prolixin Dec is listed on her Marquis (CANNOT REFUSE), reviewed by typewriter repairer and specified by her guardian (literature reports decanoate q. 3 weeks or longer has been as effective as q.2 weeks which is something patient can discuss with outpatient provider but is something that may reduce side-effects and thus increase adherence) I spent minutes with the patient and/or on the patient floor today, greater than?50% of which was spent counseling/coordinating care. Reason for contiued inpatient stay Substantial Risk for: inability to function
[2021-10-06 18:00] VITALS: RESP 16
[2021-10-06] MEDS: Melatonin 3 MG TABLET PO (20:10)
--- NOTE | 2021-10-07 10:18 | P.PNPSI_ITS ---
Subjective Subjective Date of Service: 10/07/21 Reason For Visit: SECTION 12, THOUGHTS TO HARM OTHERS Interim History: Patient says that she is overall doing well however feels that her vision is off and that it is hard to focus on things up close; she also says she has developed a little akathisia. Patient reports that both of these things typically happen when she is restarting Prolixin. She is not worried about it but she asks if Prolixin p.o. dose can be lowered to 10 mg at bedtime for an overall total daily dose of 15 mg. Finishing Supervisor [employer] agrees to make these changes. Of note, process description writer does not notice any akathisia, tremor or other EPS symptoms however patient may be experiencing a subclinical amount of EPS. Patient volunteers that she does not hear voices and has no paranoid delusions, that she is calm, cooperative and has no complaints. Of note, staff reports patient intermittently internally preoccupied, laughing to herself. Diagnostics Vital Signs (24Hr): Vital Signs - 24 hr 10/06/21 18:00 Respiratory Rate 16 BMI result Body Mass Index 26.6 Labs Results: 09/22/21 17:48 09/22/21 17:48 Medications Medications Current Medications Acetaminophen (Acetaminophen 325 Mg Tablet) 650 mg PO Q6H PRN PRN Reason: Headache/Pain Mild Scale (1-3) Al Hydroxide/Mg Hydroxide (Magnesium Hydrox/Alum Hydrox 30 Ml Oral.Susp) 30 ml PO Q6H PRN PRN Reason: Heartburn/Nausea Fluphenazine Decanoate (Fluphenazine Decanoate 25 Mg/Ml Vial) 25 mg IM Q14D@0900 [facility] Last Admin: 09/27/21 17:30 Dose: 25 mg Documented by: Fluphenazine HCl (Fluphenazine Hcl 2.5 Mg/Ml 10 Ml Vial) 5 mg IM BID PRN PRN Reason: ON MARQUIS; GIVE IF REFUSES PO Fluphenazine HCl (Fluphenazine Hcl 2.5 Mg/5 Ml Elixir) 5 mg PO DAILY [facility] Last Admin: 10/07/21 07:55 Dose: 5 mg Documented by: Fluphenazine HCl (Fluphenazine Hcl 2.5 Mg/5 Ml Elixir) 15 mg PO BEDTIME [facility] Last Admin: 10/06/21 20:10 Dose: 15 mg Documented by: Hydroxyzine HCl (Hydroxyzine Hcl 25 Mg Tablet) 25 mg PO BEDTIME PRN PRN Reason: Anxiety Magnesium Hydroxide (Milk Of Magnesia 30 Ml Oral.Susp) 30 ml PO DAILY PRN PRN Reason: Constipation Melatonin (Melatonin 3 Mg Tablet) 3 mg PO BEDTIME PRN PRN Reason: CONTINUED insomnia Last Admin: 10/05/21 02:39 Dose: 3 mg Documented by: Melatonin (Melatonin 3 Mg Tablet) 3 mg PO BEDTIME SARABJIT Last Admin: 10/06/21 20:10 Dose: 3 mg Documented by: Pharmacy Consult (Consult Rx Perform Med Rec) 1 each MISCELLANE ONCE PRN PRN Reason: Consult order Trazodone HCl (Trazodone Hcl 50 Mg Tablet) 50 mg PO BEDTIME PRN PRN Reason: Insomnia Allergies Allergies Allergy/AdvReac Type Severity Reaction Status Date / Time cashew nut Allergy Severe ANAPHYLAXIS Verified 10/04/21 19:44 peanut [Peanut] Allergy Severe ANAPHALAXIS Verified 10/04/21 19:44 Assessment & Plan Assessment & Plan (1) Paranoid: Status: Acute Code(s): F22 - Delusional disorders Assessment and Plan: believes food and medicine are poisoned and that the [facility] police are controlling her due to her refusal to work with them (2) Delusional disorder: Status: Acute Code(s): F22 - Delusional disorders Assessment and Plan: IMPRESSION: Patient is a 61-year-old female with history of Delusional disorder (r/o schizophrenia), on a community Marquis and with her brother as guardian, who presents via EMS following a wellness check by [facility] staff and police who found patient's apartment in a disheveled state and patient with paranoid delusions that her food was poisoned, there were bombs in the toilet and that [facility] staff was a part of the [facility] secret police who were planning her demise, in the face of going off her? Prolixin Decanoate this past December.? On admission she denied any SI, HI, AVH or any delusional thinking; she also denied that any of the reported events or findings from [facility]'s wellness check were true and denied that she has a mental illness.? Patient refused to sign in and was on a 12 B.? Patient was willing to take Prolixin p.o. She lacks all insight. HOSPITAL COURSE: Patient continues to lack all insight and has become verbally aggressive physically posturing with menacing affect, intruding into staff's personal space, verbally harassing staff and making it difficult for staff to carry out work on the unit.? Patient's behaviors have become unsafe; she refuses to increase p.o. Prolixin and for staff and milieu safety will order Prolixin Decanoate 25 mg IM which is on her Marquis and which her guardian says patient needs and agrees she should get. -signed CV after talking with guardian; also agreed with Prolixin Decanoate -patient superficially polite but easily triggered and intense anger; remains with paranoid, persecutory delusions and some grandiosity 09/30 patient remains superficially polite; guarded.? She has not been challenging staff.? Patient reports she is tired but denies any symptoms; agrees to increasing Prolixin p.o. (which is on Marquis and cannot be refused) -Prolixin 25 mg decanoate is roughly equivalent to getting Prolixin 20 mg p.o. daily; additionally p.o. doses are overlapped for several weeks after restarting Decanoate.? Patient gets Decanoate every 2 weeks and literature typically uses q. 3 weeks for conversion so will titrate p.o. Prolixin to about 15 mg daily.? Discussed with patient who agrees 10/02 remains superficially polite; is guarded and continues to have paranoid, persecutory delusions 10/05 remains superficially polite; is guarded and continues to have paranoid, persecutory delusions but lessening a bit in intensity 10/07 remains superficially polite; is guarded; denies all psychiatric symptoms, though intermittently internally preoccupied; pt has denied paranoid, persecutory delusions to process description writer despite expressing them to others. Patient complains of some visual changes and akathisia which she attributes to r estarting Prolixin and says this is very common for her when she restarts it or has a dose increase. Of note, process description writer does not notice any akathisia, tremor or other EPS symptoms however it's possible that patient may be experiencing a subclinical amount of EPS. PLAN: Patient is on a?community Marquis?extended and in effect until Nov 11, 2021. Patient has a?guardian, her brother Kong Guillaume pt signed CV Q 15 minute checks Will DC 1:1 staff will monitor as patient can get intrusive and interfere with others treatment by trying to disparage staff and whispering delusions) 1. Delusional disorder (not sure if AH; no disorganized behavior noted): -patient on [facility] Marquis and cannot refuse Prolixin MEDS: Prolixin 5mg Qam on 10/03 (*PATIENT CANNOT REFUSE PROLIXIN PO; give IM prolixin if refuses) LOWER to Prolixin 10mg qhs on 10/07 pt c/o side-effects (*PATIENT CANNOT REFUSE PROLIXIN PO; give IM prolixin if refuses) Prolixin PO for few weeks to overlap Decanoate? (Decanoate 25 mg Q 2/3 weeks is roughly equivalent to Prolixin p.o. 20 mg daily; have titrated to 15 mg total daily dose for now) Will likely need to increase Prolixin dose as it's subtherapeutic for overlapping with Decanoate 25 mg Received Prolixin Decanoate 25 mg IM (received on 09/27/21; next dose due 10/11/21) Prolixin Dec is listed on her Marquis (CANNOT REFUSE), reviewed by process description writer and specified by her guardian (literature reports decanoate q. 3 weeks or longer has been as effective as q.2 weeks which is something patient can discuss with outpatient provider but is something that may reduce side-effects and thus increase adherence) I spent minutes with the patient and/or on the patient floor today, greater than?50% of which was spent counseling/coordinating care. Reason for contiued inpatient stay Substantial Risk for: rapid decompensation
[2021-10-07 18:00] VITALS: RESP 16
[2021-10-07] MEDS: Melatonin 3 MG TABLET PO (20:23)
--- NOTE | 2021-10-08 16:29 | HO.PSYCHPN ---
Subjective Subjective Date of Service: 10/08/21 Reason For Visit: SECTION 12, THOUGHTS TO HARM OTHERS Interim History: Patient reports that she is good. She said she slept better last night. Also says that lower dose of Prolixin to 10 mg at bedtime has helped her reduce side effects. She says is seeing and walking better. Patient denies any complaints and has no requests. She is of note a little warmer during interaction. Mental Status Exam Mental Status Exam Narrative: Pt is alert and oriented; behavior is cooperative and calm, perhaps less guarded; dressed in casual, appropriate cloths, adequately groomed and with good hygiene; mood is described as good and affect congruent; no irritable edge;? eye contact is appropriate; Speech is normal rate, volume and prosody; no some psychomotor agitation present; thought process is organized and goal directed; Thought content expressed is on treatment; pt denies any delusional thinking, but has recently expressed paranoid delusional and persecutory fears; these however seem be lessening in intensity; no grandiosity expressed; denies SI/HI or AVH;? Patients insight and judgment impaired Diagnostics Vital Signs (24Hr): Vital Signs - 24 hr 10/07/21 18:00 Respiratory Rate 16 BMI result Body Mass Index 26.6 Labs Results: 09/22/21 17:48 09/22/21 17:48 Medications Medications Current Medications Acetaminophen (Acetaminophen 325 Mg Tablet) 650 mg PO Q6H PRN PRN Reason: Headache/Pain Mild Scale (1-3) Al Hydroxide/Mg Hydroxide (Magnesium Hydrox/Alum Hydrox 30 Ml Oral.Susp) 30 ml PO Q6H PRN PRN Reason: Heartburn/Nausea Fluphenazine Decanoate (Fluphenazine Decanoate 25 Mg/Ml Vial) 25 mg IM Q14D@0900 [facility] Last Admin: 09/27/21 17:30 Dose: 25 mg Documented by: Fluphenazine HCl (Fluphenazine Hcl 2.5 Mg/Ml 10 Ml Vial) 5 mg IM BID PRN PRN Reason: ON MARQUIS; GIVE IF REFUSES PO Fluphenazine HCl (Fluphenazine Hcl 5 Mg Tablet) 5 mg PO DAILY [facility] Fluphenazine HCl (Fluphenazine Hcl 5 Mg Tablet) 10 mg PO BEDTIME [facility] Magnesium Hydroxide (Milk Of Magnesia 30 Ml Oral.Susp) 30 ml PO DAILY PRN PRN Reason: Constipation Melatonin (Melatonin 3 Mg Tablet) 3 mg PO BEDTIME PRN PRN Reason: CONTINUED insomnia Last Admin: 10/05/21 02:39 Dose: 3 mg Documented by: Melatonin (Melatonin 3 Mg Tablet) 3 mg PO BEDTIME SARABJIT Last Admin: 10/07/21 20:23 Dose: 3 mg Documented by: Pharmacy Consult (Consult Rx Perform Med Rec) 1 each MISCELLANE ONCE PRN PRN Reason: Consult order Trazodone HCl (Trazodone Hcl 50 Mg Tablet) 50 mg PO BEDTIME PRN PRN Reason: Insomnia Allergies Allergies Allergy/AdvReac Type Severity Reaction Status Date / Time cashew nut Allergy Severe ANAPHYLAXIS Verified 10/04/21 19:44 peanut [Peanut] Allergy Severe ANAPHALAXIS Verified 10/04/21 19:44 Assessment & Plan Assessment & Plan (1) Paranoid: Status: Acute Code(s): F22 - Delusional disorders Assessment and Plan: believes food and medicine are poisoned and that the [facility] police are controlling her due to her refusal to work with them (2) Delusional disorder: Status: Acute Code(s): F22 - Delusional disorders Assessment and Plan: IMPRESSION: Patient is a 61-year-old female with history of Delusional disorder (r/o schizophrenia), on a community Marquis and with her brother as guardian, who presents via EMS following a wellness check by [facility] staff and police who found patient's apartment in a disheveled state and patient with paranoid delusions that her food was poisoned, there were bombs in the toilet and that [facility] staff was a part of the [place] secret police who were planning her demise, in the face of going off her? Prolixin Decanoate this past December.? On admission she denied any SI, HI, AVH or any delusional thinking; she also denied that any of the reported events or findings from [facility]'s wellness check were true and denied that she has a mental illness.? Patient refused to sign in and was on a 12 B.? Patient was willing to take Prolixin p.o. She lacks all insight. HOSPITAL COURSE: Patient continues to lack all insight and has become verbally aggressive physically posturing with menacing affect, intruding into staff's personal space, verbally harassing staff and making it difficult for staff to carry out work on the unit.? Patient's behaviors have become unsafe; she refuses to increase p.o. Prolixin and for staff and milieu safety will order Prolixin Decanoate 25 mg IM which is on her Marquis and which her guardian says patient needs and agrees she should get. -signed CV after talking with guardian; also agreed with Prolixin Decanoate -patient superficially polite but easily triggered and intense anger; remains with paranoid, persecutory delusions and some grandiosity 09/30 patient remains superficially polite; guarded.? She has not been challenging staff.? Patient reports she is tired but denies any symptoms; agrees to increasing Prolixin p.o. (which is on Marquis and cannot be refused) -Prolixin 25 mg decanoate is roughly equivalent to getting Prolixin 20 mg p.o. daily; additionally p.o. doses are overlapped for several weeks after restarting Decanoate.? Patient gets Decanoate every 2 weeks and literature typically uses q. 3 weeks for conversion so will titrate p.o. Prolixin to about 15 mg daily.? Discussed with patient who agrees 10/02 remains superficially polite; is guarded and continues to have paranoid, persecutory delusions 10/05 remains superficially polite; is guarded and continues to have paranoid, persecutory delusions but lessening a bit in intensity 10/07 remains superficially polite; is guarded; denies all psychiatric symptoms, though intermittently internally preoccupied; pt has denied paranoid, persecutory delusions to proposal manager writer despite expressing them to others. Patient complains of some visual changes and akathisia which she attributes to restarting Prolixin and says this is very common for her when she restarts it or has a dose increase. Of note, proposal manager writer does not notice any akathisia, tremor or other EPS symptoms however it's possible that patient may be experiencing a subclinical amount of EPS. PLAN: Patient is on a?community Marquis?extended and in effect until Nov 11, 2021. Patient has a?guardian, her brother Kong Guillaume pt signed CV Q 15 minute checks Will DC 1:1 staff will monitor as patient can get intrusive and interfere with others treatment by trying to disparage staff and whispering delusions) 1. Delusional disorder (not sure if AH; no disorganized behavior noted): -patient on [facility] Marquis and cannot refuse Prolixin MEDS: Prolixin 5mg Qam on 10/03 (*PATIENT CANNOT REFUSE PROLIXIN PO; give IM prolixin if refuses) LOWER to Prolixin 10mg qhs on 10/07 pt c/o side-effects (*PATIENT CANNOT REFUSE PROLIXIN PO; give IM prolixin if refuses) Prolixin PO for few weeks to overlap Decanoate? (Decanoate 25 mg Q 2/3 weeks is roughly equivalent to Prolixin p.o. 20 mg daily; have titrated to 15 mg total daily dose for now) Will likely need to increase Prolixin dose as it's subtherapeutic for overlapping with Decanoate 25 mg Received Prolixin Decanoate 25 mg IM (received on 09/27/21; next dose due 10/11/21) Prolixin Dec is listed on her Marquis (CANNOT REFUSE), reviewed by proposal manager writer and specified by her guardian (literature reports decanoate q. 3 weeks or longer has been as effective as q.2 weeks which is something patient can discuss with outpatient provider but is something that may reduce side-effects and thus increase adherence) I spent minutes with the patient and/or on the patient floor today, greater than?50% of which was spent counseling/coordinating care. Reason for contiued inpatient stay Substantial Risk for: rapid decompensation
[2021-10-08 18:00] VITALS: RESP 16
[2021-10-08] MEDS: fluPHENAZine HCl 5 MG TABLET 10 MG PO (20:20)
[2021-10-08] MEDS: Melatonin 3 MG TABLET PO ×2 (20:20→22:15)
[2021-10-09] MEDS: fluPHENAZine HCl 5 MG TABLET PO (09:05)
--- NOTE | 2021-10-09 15:05 | PC.NURSE ---
Pt approached T/W with concerns regarding medication and side effects. Pt was grinding teeth,lip puckering and complaining of tongue curling. Pt refused any medications to help alleviate these symptoms. Pt approached T/W again later in the shift c/o increased eps, patient exhibiting signs of akathisia at this point, MD aware and decreased am dose of Prolixin.
--- NOTE | 2021-10-09 16:35 | HO.PSYCHPN ---
Subjective Subjective Date of Service: 10/09/21 Reason For Visit: SECTION 12, THOUGHTS TO HARM OTHERS Interim History: Patient reports good mood. She agrees that she has accepted she needed to come to the hospital but maintain she does not know why; on this topic she politely declines to discuss it saying she does not want to get into it. Patient reports that she is having some akathisia and now some tardive dyskinesia from the Prolixin. Patient shows property underwriter her mouth which she is moving and says she has some mouth and tongue movements. She also says that she is feeling restlessness and her legs and is thus walking the hallways. To that end she asks if a.m. dose of Prolixin committee lowered to 2.5 mg to which property underwriter agrees. Mental Status Exam Mental Status Exam Narrative: Pt is alert and oriented; behavior is? cooperative and calm, perhaps less guarded; dressed in casual, appropriate cloths, adequately groomed and with good hygiene; mood is described as good and affect congruent; no irritable edge;? eye contact is appropriate; Speech is normal rate, volume and prosody; no psychomotor agitation present; thought process is organized and goal directed; Thought content expressed is on treatment; pt denies any delusional thinking, but has recently expressed paranoid delusional and persecutory fears; these however seem be lessening in intensity; no grandiosity expressed; denies SI/HI or AVH;? Patients insight and judgment impaired Diagnostics Vital Signs (24Hr): Vital Signs - 24 hr 10/08/21 18:00 Respiratory Rate 16 BMI result Body Mass Index 26.6 Labs Results: 09/22/21 17:48 09/22/21 17:48 Medications Medications Current Medications Acetaminophen (Acetaminophen 325 Mg Tablet) 650 mg PO Q6H PRN PRN Reason: Headache/Pain Mild Scale (1-3) Al Hydroxide/Mg Hydroxide (Magnesium Hydrox/Alum Hydrox 30 Ml Oral.Susp) 30 ml PO Q6H PRN PRN Reason: Heartburn/Nausea Fluphenazine Decanoate (Fluphenazine Decanoate 25 Mg/Ml Vial) 25 mg IM Q14D@0900 SARABJIT Last Admin: 09/27/21 17:30 Dose: 25 mg Documented by: Fluphenazine HCl (Fluphenazine Hcl 2.5 Mg/Ml 10 Ml Vial) 5 mg IM BID PRN PRN Reason: ON MARQUIS; GIVE IF REFUSES PO Fluphenazine HCl (Fluphenazine Hcl 5 Mg Tablet) 10 mg PO BEDTIME SARABJIT Last Admin: 10/08/21 20:20 Dose: 10 mg Documented by: Fluphenazine HCl (Fluphenazine Hcl 2.5 Mg Tablet) 2.5 mg PO DAILY SARABJIT Magnesium Hydroxide (Milk Of Magnesia 30 Ml Oral.Susp) 30 ml PO DAILY PRN PRN Reason: Constipation Melatonin (Melatonin 3 Mg Tablet) 3 mg PO BEDTIME PRN PRN Reason: CONTINUED insomnia Last Admin: 10/05/21 02:39 Dose: 3 mg Documented by: Melatonin (Melatonin 3 Mg Tablet) 3 mg PO BEDTIME SARABJIT Last Admin: 10/08/21 22:15 Dose: 3 mg Documented by: Pharmacy Consult (Consult Rx Perform Med Rec) 1 each MISCELLANE ONCE PRN PRN Reason: Consult order Trazodone HCl (Trazodone Hcl 50 Mg Tablet) 50 mg PO BEDTIME PRN PRN Reason: Insomnia Allergies Allergies Allergy/AdvReac Type Severity Reaction Status Date / Time cashew nut Allergy Severe ANAPHYLAXIS Verified 10/04/21 19:44 peanut [Peanut] Allergy Severe ANAPHALAXIS Verified 10/04/21 19:44 Assessment & Plan Assessment & Plan (1) Paranoid: Status: Acute Code(s): F22 - Delusional disorders Assessment and Plan: believes food and medicine are poisoned and that the [facility] police are controlling her due to her refusal to work with them (2) Delusional disorder: Status: Acute Code(s): F22 - Delusional disorders Assessment and Plan: IMPRESSION: Patient is a 61-year-old female with history of Delusional disorder (r/o schizophrenia), on a community Marquis and with her brother as guardian, who presents via EMS following a wellness check by [facility] staff and police who found patient's apartment in a disheveled state and patient with paranoid delusions that her food was poisoned, there were bombs in the toilet and that [facility] staff was a part of the [place] secret police who were planning her demise, in the face of going off her? Prolixin Decanoate this past December.? On admission she denied any SI, HI, AVH or any delusional thinking; she also denied that any of the reported events or findings from [facility]'s wellness check were true and denied that she has a mental illness.? Patient refused to sign in and was on a 12 B.? Patient was willing to take Prolixin p.o. She lacks all insight. HOSPITAL COURSE: Patient continues to lack all insight and has become verbally aggressive physically posturing with menacing affect, intruding into staff's personal space, verbally harassing staff and making it difficult for staff to carry out work on the unit.? Patient's behaviors have become unsafe; she refuses to increase p.o. Prolixin and for staff and milieu safety will order Prolixin Decanoate 25 mg IM which is on her Marquis and which her guardian says patient needs and agrees she should get. -signed CV after talking with guardian; also agreed with Prolixin Decanoate -patient superficially polite but easily triggered and intense anger; remains with paranoid, persecutory delusions and some grandiosity 09/30 patient remains superficially polite; guarded.? She has not been challenging staff.? Patient reports she is tired but denies any symptoms; agrees to increasing Prolixin p.o. (which is on Marquis and cannot be refused) -Prolixin 25 mg decanoate is roughly equivalent to getting Prolixin 20 mg p.o. daily; additionally p.o. doses are overlapped for several weeks after restarting Decanoate.? Patient gets Decanoate every 2 weeks and literature typically uses q. 3 weeks for conversion so will titrate p.o. Prolixin to about 15 mg daily.? Discussed with patient who agrees 10/02 remains superficially polite; is guarded and continues to have paranoid, persecutory delusions 10/05 remains superficially polite; is guarded and continues to have paranoid, persecutory delusions but lessening a bit in intensity 10/07 remains superficially polite; is guarded; denies all psychiatric symptoms, though intermittently internally preoccupied; pt has denied paranoid, persecutory delusions to property underwriter despite expressing them to others. Patient complains of some visual changes and akathisia which she attributes to restarting Prolixin and says this is very common for her when she restarts it or has a dose increase. Of note, property underwriter does not notice any akathisia, tremor or other EPS symptoms however it's possible that patient may be experiencing a subclinical amount of EPS. 10/09Patient reports akathisia and tardive dyskinesia from the Prolixin. Patient shows property underwriter her mouth which she is moving and says she has some mouth and tongue movements. She c/o restlessness in her legs and is thus walking the hallways. To that end she asks if a.m. dose of Prolixin committee lowered to 2.5 mg to which property underwriter agrees. At this point it is difficult to say if patient is having actual tardive dyskinesia or if she is feigning TD to lower her p.o. Prolixin dose, which her guardian/brother has reported she may do. When looking at her mouth patient is clearly making it move; however this does not mean that it is involuntarily moving on its own at other times. Guardian says she has never had TD in the past. She does not want any additional medications to mitigate this possible side effect PLAN: Patient is on a?community Marquis?extended and in effect until Nov 11, 2021. Patient has a?guardian, her brother Kong Guillaume pt signed CV Q 15 minute checks Will DC 1:1 staff will monitor as patient can get intrusive and interfere with others treatment by trying to disparage staff and whispering delusions) 1. Delusional disorder (not sure if AH; no disorganized behavior noted): -patient on community Marquis and cannot refuse Prolixin MEDS: LOWERed Prolixin 2.5mg Qam on 10/03 (*PATIENT CANNOT REFUSE PROLIXIN PO; give IM prolixin if refuses) LOWERed to Prolixin 10mg qhs on 10/07 pt c/o side-effects (*PATIENT CANNOT REFUSE PROLIXIN PO; give IM prolixin if refuses) Prolixin PO for few weeks to overlap Decanoate? (Decanoate 25 mg Q 2/3 weeks is roughly equivalent to Prolixin p.o. 20 mg daily; have titrated to 15 mg total daily dose for now) Will likely need to increase Prolixin dose as it's subtherapeutic for overlapping with Decanoate 25 mg Received Prolixin Decanoate 25 mg IM (received on 09/27/21; next dose due 10/11/21) Prolixin Dec is listed on her Marquis (CANNOT REFUSE), reviewed by property underwriter and specified by her guardian (literature reports decanoate q. 3 weeks or longer has been as effective as q.2 weeks which is something patient can discuss with outpatient provider but is something that may reduce side-effects and thus increase adherence) I spent minutes with the patient and/or on the patient floor today, greater than?50% of which was spent counseling/coordinating care. Reason for contiued inpatient stay Substantial Risk for: inability to function
[2021-10-09] MEDS: Melatonin 3 MG TABLET PO ×3 (19:59→23:13)
[2021-10-09] MEDS: fluPHENAZine HCl 5 MG TABLET 10 MG PO (20:00)
[2021-10-09] MEDS: LORazepam 0.5 MG TABLET PO (20:37)
[2021-10-10] MEDS: LORazepam 0.5 MG TABLET PO ×3 (00:19→13:24)
[2021-10-10] MEDS: traZODone HCL 50 MG TABLET PO ×2 (01:01→01:55)
--- NOTE | 2021-10-10 01:15 | PC.NURSE ---
pt experiencing sleep disturbance. on initial interaction, pt had complaints of abnormal lip and facial movements. she states that her prolixin for the morning dose has been reduced. as the night has progressed pt has made numerous trips down to the medication room having c/o of insomnia. scheduled and prn melatonin have been given without effect. dr rush contact and informed of insomnia and c/o anxiety r/t EPS. ATIVAN 0.5 MG PO Q 4HR prn anxiety. ativan o.5 mg po administered at 2030. at 0020 pt returned to nurses station again c/o of insomnia. pt states that she has been pacing the hallways all day. she is pleasant and smiling. her conversation is specific to medications and EPS. she is well groomed and dressed in a white robe.. she is again medicated with ativan 0.5 mg po. within 30 minutes of receiving second ativan dose, pt again presented at the nurses station c/o insomnia and requesting trazadone. medicated with trazadone 50 mg po for insomnia. still awaiting final analysis of effectiveness..
[2021-10-10] MEDS: fluPHENAZine HCl 2.5 MG TABLET PO (08:11)
--- NOTE | 2021-10-10 14:17 | HO.PSYCHPN ---
Subjective Subjective Date of Service: 10/10/21 Reason For Visit: SECTION 12, THOUGHTS TO HARM OTHERS Interim History: Patient reports that she could not sleep last night due to feeling overall restless from the medication. She says that she feels like she has answer her pants and can not stop moving. She also complains of tardive dyskinesia. Patient asks for p.o. Prolixin to be discontinued and to just remain on the q.2 weeks Prolixin Decanoate. Patient reports she is overall doing well otherwise and denies any psychiatric symptoms. At 1 time patient said this happened before when she was restarted on Prolixin; today she said that she typically is only restarted on Prolixin Decanoate and not with overlapping p.o. medication. Patient does not want any additional medication prescribed to ameliorate symptoms Mental Status Exam Mental Status Exam Narrative: ?Pt is alert and oriented; behavior is? cooperative and calm, perhaps less guarded; dressed in casual, appropriate cloths, adequately groomed and with good hygiene; mood is described as good and affect congruent; no irritable edge;? eye contact is appropriate; Speech is normal rate, volume and prosody; no psychomotor agitation present; thought process is organized and goal directed; Thought content expressed is on treatment; pt denies any delusional thinking, but has recently expressed paranoid delusional and persecutory fears; these however seem be lessening in intensity; no grandiosity expressed; denies SI/HI or AVH;? Patients insight and judgment impaired Diagnostics Vital Signs (24Hr): BMI result Body Mass Index 26.6 Labs Results: 09/22/21 17:48 09/22/21 17:48 Medications Medications Current Medications Acetaminophen (Acetaminophen 325 Mg Tablet) 650 mg PO Q6H PRN PRN Reason: Headache/Pain Mild Scale (1-3) Al Hydroxide/Mg Hydroxide (Magnesium Hydrox/Alum Hydrox 30 Ml Oral.Susp) 30 ml PO Q6H PRN PRN Reason: Heartburn/Nausea Fluphenazine Decanoate (Fluphenazine Decanoate 25 Mg/Ml Vial) 25 mg IM Q14D@0900 SARABJIT Last Admin: 09/27/21 17:30 Dose: 25 mg Documented by: Lorazepam (Lorazepam 0.5 Mg Tablet) 0.5 mg PO Q4H PRN PRN Reason: Anxiety Last Admin: 10/10/21 13:24 Dose: 0.5 mg Documented by: Magnesium Hydroxide (Milk Of Magnesia 30 Ml Oral.Susp) 30 ml PO DAILY PRN PRN Reason: Constipation Melatonin (Melatonin 3 Mg Tablet) 3 mg PO BEDTIME PRN PRN Reason: CONTINUED insomnia Last Admin: 10/09/21 23:13 Dose: 3 mg Documented by: Melatonin (Melatonin 3 Mg Tablet) 3 mg PO BEDTIME SARABJIT Last Admin: 10/09/21 22:01 Dose: 3 mg Documented by: Pharmacy Consult (Consult Rx Perform Med Rec) 1 each MISCELLANE ONCE PRN PRN Reason: Consult order Trazodone HCl (Trazodone Hcl 50 Mg Tablet) 50 mg PO BEDTIME PRN PRN Reason: Insomnia Last Admin: 10/10/21 01:55 Dose: 50 mg Documented by: Allergies Allergies Allergy/AdvReac Type Severity Reaction Status Date / Time cashew nut Allergy Severe ANAPHYLAXIS Verified 10/04/21 19:44 peanut [Peanut] Allergy Severe ANAPHALAXIS Verified 10/04/21 19:44 Assessment & Plan Assessment & Plan (1) Paranoid: Status: Acute Code(s): F22 - Delusional disorders Assessment and Plan: believes food and medicine are poisoned and that the [facility] police are controlling her due to her refusal to work with them (2) Delusional disorder: Status: Acute Code(s): F22 - Delusional disorders Assessment and Plan: IMPRESSION: Patient is a 61-year-old female with history of Delusional disorder (r/o schizophrenia), on a community Marquis and with her brother as guardian, who presents via EMS following a wellness check by [facility] staff and police who found patient's apartment in a disheveled state and patient with paranoid delusions that her food was poisoned, there were bombs in the toilet and that [facility] staff was a part of the [place] secret police who were planning her demise, in the face of going off her? Prolixin Decanoate this past December.? On admission she denied any SI, HI, AVH or any delusional thinking; she also denied that any of the reported events or findings from [facility]'s wellness check were true and denied that she has a mental illness.? Patient refused to sign in and was on a 12 B.? Patient was willing to take Prolixin p.o. She lacks all insight. HOSPITAL COURSE: Patient continues to lack all insight and has become verbally aggressive physically posturing with menacing affect, intruding into staff's personal space, verbally harassing staff and making it difficult for staff to carry out work on the unit.? Patient's behaviors have become unsafe; she refuses to increase p.o. Prolixin and for staff and milieu safety will order Prolixin Decanoate 25 mg IM which is on her Marquis and which her guardian says patient needs and agrees she should get. -signed CV after talking with guardian; also agreed with Prolixin Decanoate -patient superficially polite but easily triggered and intense anger; remains with paranoid, persecutory delusions and some grandiosity 09/30 patient remains superficially polite; guarded.? She has not been challenging staff.? Patient reports she is tired but denies any symptoms; agrees to increasing Prolixin p.o. (which is on Marquis and cannot be refused) -Prolixin 25 mg decanoate is roughly equivalent to getting Prolixin 20 mg p.o. daily; additionally p.o. doses are overlapped for several weeks after restarting Decanoate.? Patient gets Decanoate every 2 weeks and literature typically uses q. 3 weeks for conversion so will titrate p.o. Prolixin to about 15 mg daily.? Discussed with patient who agrees 10/02 remains superficially polite; is guarded and continues to have paranoid, persecutory delusions 10/05 remains superficially polite; is guarded and continues to have paranoid, persecutory delusions but lessening a bit in intensity 10/07 remains superficially polite; is guarded; denies all psychiatric symptoms, though intermittently internally preoccupied; pt has denied paranoid, persecutory delusions to typewriters functional tester despite expressing them to others. Patient complains of some visual changes and akathisia which she attributes to restarting Prolixin and says this is very common for her when she restarts it or has a dose increase. Of note, typewriters functional tester does not notice any akathisia, tremor or other EPS symptoms however it's possible that patient may be experiencing a subclinical amount of EPS. 10/09Patient reports akathisia and tardive dyskinesia from the Prolixin. Patient shows typewriters functional tester her mouth which she is moving and says she has some mouth and tongue movements. She c/o restlessness in her legs and is thus walking the hallways. To that end she asks if a.m. dose of Prolixin committee lowered to 2.5 mg to which typewriters functional tester agrees. At this point it is difficult to say if patient is having actual tardive dyskinesia or if she is feigning TD to lower her p.o. Prolixin dose, which her guardian/brother has reported she may do. When looking at her mouth patient is clearly making it move and when distracted, mouth movements observed to by normal; similar observation made regarding akathesia; however it's possible that there could also be involuntarily mouth movent as well. Guardian says she has never had TD in the past. She does not want any additional medications to mitigate this possible side effect. Patient requests p.o. Prolixin to be discontinued and wants to just remain on the Decanoate. [employer] agrees with this plan. While it is customary to overlap p.o. Prolixin with Decanoate, as it can take considerable time for Decanoate to reach steady state, it is however possible for decanoate to still become effective without p.o., though it will likely takes longer. PLAN: Patient is on a?community Marquis?extended and in effect until Nov 11, 2021. Patient has a?guardian, her brother Kong Guillaume pt signed CV Q 15 minute checks Will DC 1:1 staff will monitor as patient can get intrusive and interfere with others treatment by trying to disparage staff and whispering delusions) 1. Delusional disorder (not sure if AH; no disorganized behavior noted): -patient on community Marquis and cannot refuse Prolixin MEDS: Received Prolixin Decanoate 25 mg IM (received on 09/27/21; next dose due 10/11/21) DC'd PO Prolixin due to c/o TD and akathesia (dc'd on 10/10); typically, overalap Prolixin PO with Decanoate? (Decanoate 25 mg Q 2/3 weeks is roughly equivalent to Prolixin p.o. 15-20 mg daily Prolixin Dec is listed on her Maruqis (CANNOT REFUSE), reviewed by typewriters functional tester and specified by her guardian (literature reports decanoate q. 3 weeks or longer has been as effective as q.2 weeks which is something patient can discuss with outpatient provider but is something that may reduce side-effects and thus increase adherence) I spent minutes with the patient and/or on the patient floor today, greater than?50% of which was spent counseling/coordinating care. Reason for contiued inpatient stay Substantial Risk for: inability to function and rapid decompensation
[2021-10-10] MEDS: Melatonin 3 MG TABLET PO (20:07)
--- NOTE | 2021-10-11 10:57 | HO.PSYCHPN ---
Subjective Subjective Date of Service: 10/11/21 Reason For Visit: SECTION 12, THOUGHTS TO HARM OTHERS Interim History: pt reports that TD and akathesia are significantly better now that PO prolixin was discontinued. She says she still has some mouth movements but much less (none observed by technical document writer); she says she still has some urge to pass which she equates to restlessness and akathesia, but again says much better. Pt denies all psychiatric symptoms. She does not want to engage regarding events that occurred around admission or discuss diagnosis which she typically disputes, which makes it difficult to assess progress. Continue to rely on her guardians approximation of patients progress. Mental Status Exam Mental Status Exam Narrative: Pt is alert and oriented; behavior is? cooperative and calm, friendly on approach, though remains superficial; dressed in casual, appropriate cloths, adequately groomed and with good hygiene; mood is described as good and affect congruent; no irritable edge;? eye contact is appropriate; Speech is normal rate, volume and prosody; no psychomotor agitation present; no TD or akathia observed; thought process is organized and goal directed; Thought content expressed is on treatment; pt denies any delusional thinking, but is guarded regarding symptoms and has recently expressed paranoid delusional and persecutory fears; these however seem be lessening in intensity; no grandiosity expressed; denies SI/HI or AVH;? Patients insight and judgment impaired Diagnostics Vital Signs (24Hr): BMI result Body Mass Index 26.6 Labs Results: 09/22/21 17:48 09/22/21 17:48 Medications Medications Current Medications Acetaminophen (Acetaminophen 325 Mg Tablet) 650 mg PO Q6H PRN PRN Reason: Headache/Pain Mild Scale (1-3) Al Hydroxide/Mg Hydroxide (Magnesium Hydrox/Alum Hydrox 30 Ml Oral.Susp) 30 ml PO Q6H PRN PRN Reason: Heartburn/Nausea Fluphenazine Decanoate (Fluphenazine Decanoate 25 Mg/Ml Vial) 25 mg IM Q14D@0900 SARABJIT Last Admin: 09/27/21 17:30 Dose: 25 mg Documented by: Lorazepam (Lorazepam 0.5 Mg Tablet) 0.5 mg PO Q4H PRN PRN Reason: Anxiety Last Admin: 10/10/21 13:24 Dose: 0.5 mg Documented by: Magnesium Hydroxide (Milk Of Magnesia 30 Ml Oral.Susp) 30 ml PO DAILY PRN PRN Reason: Constipation Melatonin (Melatonin 3 Mg Tablet) 3 mg PO BEDTIME PRN PRN Reason: CONTINUED insomnia Last Admin: 10/09/21 23:13 Dose: 3 mg Documented by: Melatonin (Melatonin 3 Mg Tablet) 3 mg PO BEDTIME SARABJIT Last Admin: 10/10/21 20:07 Dose: 3 mg Documented by: Pharmacy Consult (Consult Rx Perform Med Rec) 1 each MISCELLANE ONCE PRN PRN Reason: Consult order Trazodone HCl (Trazodone Hcl 50 Mg Tablet) 50 mg PO BEDTIME PRN PRN Reason: Insomnia Last Admin: 10/10/21 01:55 Dose: 50 mg Documented by: Allergies Allergies Allergy/AdvReac Type Severity Reaction Status Date / Time cashew nut Allergy Severe ANAPHYLAXIS Verified 10/04/21 19:44 peanut [Peanut] Allergy Severe ANAPHALAXIS Verified 10/04/21 19:44 Assessment & Plan Assessment & Plan (1) Paranoid: Status: Acute Code(s): F22 - Delusional disorders Assessment and Plan: believes food and medicine are poisoned and that the [facility] police are controlling her due to her refusal to work with them (2) Delusional disorder: Status: Acute Code(s): F22 - Delusional disorders Assessment and Plan: IMPRESSION: Patient is a 61-year-old female with history of Delusional disorder (r/o schizophrenia), on a [employer] Marquis and with her brother as guardian, who presents via EMS following a wellness check by [facility] staff and police who found patient's apartment in a disheveled state and patient with paranoid delusions that her food was poisoned, there were bombs in the toilet and that [facility] staff was a part of the [place] secret police who were planning her demise, in the face of going off her? Prolixin Decanoate this past December.? On admission she denied any SI, HI, AVH or any delusional thinking; she also denied that any of the reported events or findings from [facility]'s wellness check were true and denied that she has a mental illness.? Patient refused to sign in and was on a 12 B.? Patient was willing to take Prolixin p.o. She lacks all insight. HOSPITAL COURSE: Patient continues to lack all insight and has become verbally aggressive physically posturing with menacing affect, intruding into staff's personal space, verbally harassing staff and making it difficult for staff to carry out work on the unit.? Patient's behaviors have become unsafe; she refuses to increase p.o. Prolixin and for staff and milieu safety will order Prolixin Decanoate 25 mg IM which is on her Marquis and which her guardian says patient needs and agrees she should get. -signed CV after talking with guardian; also agreed with Prolixin Decanoate -patient superficially polite but easily triggered and intense anger; remains with paranoid, persecutory delusions and some grandiosity 09/30 patient remains superficially polite; guarded.? She has not been challenging staff.? Patient reports she is tired but denies any symptoms; agrees to increasing Prolixin p.o. (which is on Marquis and cannot be refused) -Prolixin 25 mg decanoate is roughly equivalent to getting Prolixin 20 mg p.o. daily; additionally p.o. doses are overlapped for several weeks after restarting Decanoate.? Patient gets Decanoate every 2 weeks and literature typically uses q. 3 weeks for conversion so will titrate p.o. Prolixin to about 15 mg daily.? Discussed with patient who agrees 10/02 remains superficially polite; is guarded and continues to have paranoid, persecutory delusions 10/05 remains superficially polite; is guarded and continues to have paranoid, persecutory delusions but lessening a bit in intensity 10/07 remains superficially polite; is guarded; denies all psychiatric symptoms, though intermittently internally preoccupied; pt has denied paranoid, persecutory delusions to technical document writer despite expressing them to others. Patient complains of some visual changes and akathisia which she attributes to restarting Prolixin and says this is very common for her when she restarts it or has a dose increase. Of note, technical document writer does not notice any akathisia, tremor or other EPS symptoms however it's possible that patient may be experiencing a subclinical amount of EPS. 10/09Patient reports akathisia and tardive dyskinesia from the Prolixin. Patient shows technical document writer her mouth which she is moving and says she has some mouth and tongue movements. She c/o restlessness in her legs and is thus walking the hallways. To that end she asks if a.m. dose of Prolixin committee lowered to 2.5 mg to which technical document writer agrees. At this point it is difficult to say if patient is having actual tardive dyskinesia or if she is feigning TD to lower her p.o. Prolixin dose, which her guardian/brother has reported she may do. When looking at her mouth patient is clearly making it move and when distracted, mouth movements observed to by normal; similar observation made regarding akathesia; however it's possible that there could also be involuntarily mouth movent as well. Guardian says she has never had TD in the past. She does not want any additional medications to mitigate this possible side effect. Patient requests p.o. Prolixin to be discontinued and wants to just remain on the Decanoate. Change Management Coordinator agrees with this plan. While it is customary to overlap p.o. Prolixin with Decanoate, as it can take considerable time for Decanoate to reach steady state, it is however possible for decanoate to still become effective without p.o., though it will likely takes longer. 10/11 says TD and akathesia are significantly improved since dc'ing PO prolixin (none observed). She remains affable but guarded. Pt denies all psychiatric symptoms. She does not want to discuss events that occurred around admission or discuss hx diagnosis which she typically disputes, which makes it difficult to assess progress. Continue to rely on her guardians approximation of patients progress. However, off prolixin PO, patient might need to remain longer on unit; will discuss w/ guardian. PLAN: Patient is on a?community Marquis?extended and in effect until Nov 11, 2021. Patient has a?guardian, her brother Kong Guillaume pt signed CV Q 15 minute checks Will DC 1:1 staff will monitor as patient can get intrusive and interfere with others treatment by trying to disparage staff and whispering delusions) 1. Delusional disorder (not sure if AH; no disorganized behavior noted): -patient on community Marquis and cannot refuse Prolixin -MEDS: Prolixin Dec 25mg IM on 10/11/21 (last dose of Prolixin Decanoate 25 mg IM received on 09/27/21) -DC'd PO Prolixin due to c/o TD and akathesia (dc'd on 10/10); typically, overalap Prolixin PO with Decanoate? (Decanoate 25 mg Q 2/3 weeks is roughly equivalent to Prolixin p.o. 15-20 mg daily Prolixin Dec is listed on her Marquis (CANNOT REFUSE), reviewed by technical document writer and specified by her guardian (literature reports decanoate q. 3 weeks or longer has been as effective as q.2 weeks which is something patient can discuss with outpatient provider but is something that may reduce side-effects and thus increase adherence) I spent minutes with the patient and/or on the patient floor today, greater than?50% of which was spent counseling/coordinating care. Reason for contiued inpatient stay Substantial Risk for: inability to function
[2021-10-11] MEDS: Melatonin 3 MG TABLET PO ×2 (20:06→21:19)
[2021-10-11] MEDS: LORazepam 0.5 MG TABLET PO (20:06)
[2021-10-12] MEDS: fluPHENAZine decanoate 25 MG/ML 5 ML VIAL IM (09:24)
[2021-10-12] MEDS: LORazepam 0.5 MG TABLET PO (17:23)
--- NOTE | 2021-10-12 18:16 | P.PNPSI_ITS ---
Subjective Subjective Date of Service: 10/12/21 Reason For Visit: SECTION 12, THOUGHTS TO HARM OTHERS Interim History: Patient says TD remains but is significantly better; says akathisia remains but is much better too. Shipwright Supervisor explains discussion with guardian and given her history and especially in light of going off the p.o. Prolixin which is normally overlapped as Decanoate is titrated, patient is at risk for to compensating and team agrees with guardian that it is in patient's best interest and for safety that she remain on the unit to get her next Prolixin Decanoate administration, 2 weeks from now. Patient is reflective and agrees that historically, as she follows her brother/guardians plan she has been able to remain out of an inpatient unit for the past 5 years. Patient has no other requests, no complaints; denies SI, HI AVH or delusional thinking Mental Status Exam Mental Status Exam Narrative: Pt is alert and oriented; behavior is? cooperative and calm, friendly on approach, though remains superficial; dressed in casual, appropriate cloths, adequately groomed and with good hygiene; mood is described as good and affect congruent; no irritable edge;? eye contact is appropriate; Speech is normal rate, volume and prosody; no psychomotor agitation present; some TD observed; no akathia observed; thought process is organized and goal directed; Thought content expressed is on treatment; pt denies any delusional thinking, but is guarded regarding symptoms (has recently expressed paranoid delusional and persecutory fears; these however seem be lessening in intensity); no grandiosity expressed; denies SI/HI or AVH;? Patients insight and judgment impaired Diagnostics Vital Signs (24Hr): BMI result Body Mass Index 26.6 Labs Results: 09/22/21 17:48 09/22/21 17:48 Medications Medications Current Medications Acetaminophen (Acetaminophen 325 Mg Tablet) 650 mg PO Q6H PRN PRN Reason: Headache/Pain Mild Scale (1-3) Al Hydroxide/Mg Hydroxide (Magnesium Hydrox/Alum Hydrox 30 Ml Oral.Susp) 30 ml PO Q6H PRN PRN Reason: Heartburn/Nausea Fluphenazine Decanoate (Fluphenazine Decanoate 25 Mg/Ml 5 Ml Vial) 25 mg IM Q 14D@[facility] Last Admin: 10/12/21 09:24 Dose: 25 mg Documented by: Lorazepam (Lorazepam 0.5 Mg Tablet) 0.5 mg PO Q4H PRN PRN Reason: Anxiety Last Admin: 10/12/21 17:23 Dose: 0.5 mg Documented by: Magnesium Hydroxide (Milk Of Magnesia 30 Ml Oral.Susp) 30 ml PO DAILY PRN PRN Reason: Constipation Melatonin (Melatonin 3 Mg Tablet) 3 mg PO BEDTIME PRN PRN Reason: CONTINUED insomnia Last Admin: 10/09/21 23:13 Dose: 3 mg Documented by: Melatonin (Melatonin 3 Mg Tablet) 3 mg PO BEDTIME SARABJIT Last Admin: 10/11/21 21:19 Dose: 3 mg Documented by: Pharmacy Consult (Consult Rx Perform Med Rec) 1 each MISCELLANE ONCE PRN PRN Reason: Consult order Trazodone HCl (Trazodone Hcl 50 Mg Tablet) 50 mg PO BEDTIME PRN PRN Reason: Insomnia Last Admin: 10/10/21 01:55 Dose: 50 mg Documented by: Allergies Allergies Allergy/AdvReac Type Severity Reaction Status Date / Time cashew nut Allergy Severe ANAPHYLAXIS Verified 10/04/21 19:44 peanut [Peanut] Allergy Severe ANAPHALAXIS Verified 10/04/21 19:44 Assessment & Plan Assessment & Plan (1) Paranoid: Status: Acute Code(s): F22 - Delusional disorders Assessment and Plan: believes food and medicine are poisoned and that the [facility] police are controlling her due to her refusal to work with them (2) Delusional disorder: Status: Acute Code(s): F22 - Delusional disorders Assessment and Plan: IMPRESSION: Patient is a 61-year-old female with history of Delusional disorder (r/o schizophrenia), on a community Marquis and with her brother as guardian, who presents via EMS following a wellness check by [facility] staff and police who found patient's apartment in a disheveled state and patient with paranoid delusions that her food was poisoned, there were bombs in the toilet and that [facility] staff was a part of the [facility] secret police who were planning her demise, in the face of going off her? Prolixin Decanoate this past December.? On admission she denied any SI, HI, AVH or any delusional thinking; she also denied that any of the reported events or findings from [facility]'s wellness check were true and denied that she has a mental illness.? Patient refused to sign in and was on a 12 B.? Patient was willing to take Prolixin p.o. She lacks all insight. HOSPITAL COURSE: Patient continues to lack all insight and has become verbally aggressive physically posturing with menacing affect, intruding into staff's personal spac e, verbally harassing staff and making it difficult for staff to carry out work on the unit.? Patient's behaviors have become unsafe; she refuses to increase p.o. Prolixin and for staff and milieu safety will order Prolixin Decanoate 25 mg IM which is on her Marquis and which her guardian says patient needs and agrees she should get. -signed CV after talking with guardian; also agreed with Prolixin Decanoate -patient superficially polite but easily triggered and intense anger; remains with paranoid, persecutory delusions and some grandiosity 09/30 patient remains superficially polite; guarded.? She has not been challenging staff.? Patient reports she is tired but denies any symptoms; agrees to increasing Prolixin p.o. (which is on Marquis and cannot be refused) -Prolixin 25 mg decanoate is roughly equivalent to getting Prolixin 20 mg p.o. daily; additionally p.o. doses are overlapped for several weeks after restarting Decanoate.? Patient gets Decanoate every 2 weeks and literature typically uses q. 3 weeks for conversion so will titrate p.o. Prolixin to about 15 mg daily.? Discussed with patient who agrees 10/02 remains superficially polite; is guarded and continues to have paranoid, per secutory delusions 10/05 remains superficially polite; is guarded and continues to have paranoid, persecutory delusions but lessening a bit in intensity 10/07 remains superficially polite; is guarded; denies all psychiatric symptoms, though intermittently internally preoccupied; pt has denied paranoid, persecutory delusions to sign writer hand despite expressing them to others. Patient complains of some visual changes and akathisia which she attributes to restarting Prolixin and says this is very common for her when she restarts it or has a dose increase. Of note, sign writer hand does not notice any akathisia, tremor or other EPS symptoms however it's possible that patient may be experiencing a subclinical amount of EPS. 10/09Patient reports akathisia and tardive dyskinesia from the Prolixin. Patient shows sign writer hand her mouth which she is moving and says she has some mouth and tongue movements. She c/o restlessness in her legs and is thus walking the hallways. To that end she asks if a.m. dose of Prolixin committee lowered to 2.5 mg to which sign writer hand agrees. At this point it is difficult to say if patient is having actual tardive dyskinesia or if she is feigning TD to lower her p.o. Prolixin dose, which her guardian/brother has reported she may do. When looking at her mouth patient is clearly making it move and when distracted, mouth movements observed to by normal; similar observation made regarding akathesia; however it's possible that there could also be involuntarily mouth movent as well. Guardian says she has never had TD in the past. She does not want any additional medications to mitigate this possible side effect. Patient requests p.o. Prolixin to be discontinued and wants to just remain on the Decanoate. Shipwright Supervisor agrees with this plan. While it is customary to overlap p.o. Prolixin with Decanoate, as it can take considerable time for Decanoate to reach steady state, it is however possible for decanoate to still become effective without p.o., though it will likely takes longer. 10/11 says TD and akathesia are significantly improved since dc'ing PO prolixin (none observed). She remains affable but guarded. Pt denies all psychiatric symptoms. She does not want to discuss events that occurred around admission or discuss hx diagnosis which she typically disputes, which makes it difficult to assess progress. Continue to rely on her guardians approximation of patients progress. However, off prolixin PO, patient might need to remain longer on unit; will discuss w/ guardian. 10/12 patient agrees to remain on the unit, following guardians strong advice that she will otherwise decompensate if discharged now; she will remain to get her 3rd administration of Prolixin Decanoate 25 mg. Shipwright Supervisor observed some tardive dyskinesia symptoms however patient says these are decreasing. Shipwright Supervisor discussed case with guardian who says that normally patient pays her own bills, shops for herself, pays her rent on time; he says that reviewing her financial history she has not paid any pills for 4 months including credit card bills. He asked her who currently is pain her rent for apartment and she says she does not want to talk about that; guardian says that she cannot yet grasp this concept or her eventual need to pay rent but that this will change as medication become therapeutic. He said that she also denies that her parents are something that she normally fully accepts. On in improved note she says that she does now believe that this sign writer hand is a real doctor even if she still worries this sign writer hand is not licensed. PLAN: Patient is on a?community Marquis?extended and in effect until Nov 11, 2021. Patient has a?guardian, her brother Kong Guillaume pt signed CV Q 15 minute checks Will DC 1:1 staff will monitor as patient can get intrusive and interfere with others treatment by trying to disparage staff and whispering delusions) 1. Delusional disorder (not sure if AH; no disorganized behavior noted): -patient on community Marquis and cannot refuse Prolixin -MEDS: Prolixin Dec 25mg IM on 10/11/21 (last dose of Prolixin Decanoate 25 mg IM received on 09/27/21) -DC'd PO Prolixin due to c/o TD and akathesia (dc'd on 10/10); typically, overalap Prolixin PO with Decanoate? (Decanoate 25 mg Q 2/3 weeks is roughly equivalent to Prolixin p.o. 15-20 mg daily Prolixin Dec is listed on her Marquis (CANNOT REFUSE), reviewed by sign writer hand and specified by her guardian (literature reports decanoate q. 3 weeks or longer has been as effective as q.2 weeks which is something patient can discuss with ou tpatient provider but is something that may reduce side-effects and thus increase adherence) I spent minutes with the patient and/or on the patient floor today, greater than?50% of which was spent counseling/coordinating care. Reason for contiued inpatient stay Substantial Risk for: inability to function and rapid decompensation
[2021-10-12] MEDS: Melatonin 3 MG TABLET PO (20:56)
[2021-10-13] MEDS: Melatonin 3 MG TABLET PO ×2 (03:44→20:04)
[2021-10-13] MEDS: LORazepam 0.5 MG TABLET PO ×4 (04:19→17:35)
--- NOTE | 2021-10-13 18:14 | P.PNPSI_ITS ---
Subjective Subjective Date of Service: 10/13/21 Reason For Visit: SECTION 12, THOUGHTS TO HARM OTHERS Interim History: pt reports she is fine and bored, says there is nothing to do so she is mostly just sleeping. Patient reports that tardive dyskinesia continues to reduce and is only minimally present. Denies psychiatric symptoms; not looking to engage further; remains pleasant and polite no TD observed Mental Status Exam Mental Status Exam Narrative: ?Pt is alert and oriented; behavior is? cooperative and calm, friendly on approach, though remains superficial; dressed in casual, appropriate cloths, adequately groomed and with good hygiene; mood is described as good and affect congruent; no irritable edge;? eye contact is appropriate; Speech is normal rate, volume and prosody; no psychomotor agitation present; no TD or akathia observed; thought process is organized and goal directed; Thought content expressed is on treatment; pt denies any delusional thinking, but is gu arded regarding symptoms (has recently expressed paranoid delusional and persecutory fears; these however seem be lessening in intensity); no grandiosity expressed; denies SI/HI or AVH;? Patients insight and judgment impaired Diagnostics Vital Signs (24Hr): BMI result Body Mass Index 26.6 Labs Results: 09/22/21 17:48 09/22/21 17:48 Medications Medications Current Medications Acetaminophen (Acetaminophen 325 Mg Tablet) 650 mg PO Q6H PRN PRN Reason: Headache/Pain Mild Scale (1-3) Al Hydroxide/Mg Hydroxide (Magnesium Hydrox/Alum Hydrox 30 Ml Oral.Susp) 30 ml PO Q6H PRN PRN Reason: Heartburn/Nausea Fluphenazine Decanoate (Fluphenazine Decanoate 25 Mg/Ml 5 Ml Vial) 25 mg IM Q14D@0900 [facility] Last Admin: 10/12/21 09:24 Dose: 25 mg Documented by: Lorazepam (Lorazepam 0.5 Mg Tablet) 0.5 mg PO Q4H PRN PRN Reason: Anxiety Last Admin: 10/13/21 17:35 Dose: 0.5 mg Documented by: Magnesium Hydroxide (Milk Of Magnesia 30 Ml Oral.Susp) 30 ml PO DAILY PRN PRN Reason: Constipation Melatonin (Melatonin 3 Mg Tablet) 3 mg PO BEDTIME PRN PRN Reason: CONTINUED insomnia Last Admin: 10/13/21 03:44 Dose: 3 mg Documented by: Melatonin (Melatonin 3 Mg Tablet) 3 mg PO BEDTIME SARABJIT Last Admin: 10/11/21 21:19 Dose: 3 mg Documented by: Pharmacy Consult (Consult Rx Perform Med Rec) 1 each MISCELLANE ONCE PRN PRN Reason: Consult order Trazodone HCl (Trazodone Hcl 50 Mg Tablet) 50 mg PO BEDTIME PRN PRN Reason: Insomnia Last Admin: 10/10/21 01:55 Dose: 50 mg Documented by: Allergies Allergies Allergy/AdvReac Type Severity Reaction Status Date / Time cashew nut Allergy Severe ANAPHYLAXIS Verified 10/04/21 19:44 peanut [Peanut] Allergy Severe ANAPHALAXIS Verified 10/04/21 19:44 Assessment & Plan Assessment & Plan (1) Paranoid: Status: Acute Code(s): F22 - Delusional disorders Assessment and Plan: believes food and medicine are poisoned and that the [facility] police are controlling her due to her refusal to work with them (2) Delusional disorder: Status: Acute Code(s): F22 - Delusional disorders Assessment and Plan: IMPRESSION: Patient is a 61-year-old female with history of Delusional disorder (r/o schizophrenia), on a community Marquis and with her brother as guardian, who presents via EMS following a wellness check by [facility] staff and police who found patient's apartment in a disheveled state and patient with paranoid delusions that her food was poisoned, there were bombs in the toilet and that [facility] staff was a part of the [facility] secret police who were planning her demise, in the face of going off her? Prolixin Decanoate this past December.? On admission she denied any SI, HI, AVH or any delusional thinking; she also denied that any of the reported events or findings from [facility]'s wellness check were true and denied that she has a mental illness.? Patient refused to sign in and was on a 12 B.? Patient was willing to take Prolixin p.o. She lacks all insight. HOSPITAL COURSE: Patient continues to lack all insight and has become verbally aggressive physically posturing with menacing affect, intruding into staff's personal space, verbally harassing staff and making it difficult for staff to carry out work on the unit.? Patient's behaviors have become unsafe; she refuses to increase p.o. Prolixin and for staff and milieu safety will order Prolixin Decanoate 25 mg IM which is on her Marquis and which her guardian says patient needs and agrees she should get. -signed CV after talking with guardian; also agreed with Prolixin Decanoate -patient superficially polite but easily triggered and intense anger; remains with paranoid, persecutory delusions and some grandiosity 09/30 patient remains superficially polite; guarded.? She has not been challenging staff.? Patient reports she is tired but denies any symptoms; agrees to increasing Prolixin p.o. (which is on Marquis and cannot be refused) -Prolixin 25 mg decanoate is roughly equivalent to getting Prolixin 20 mg p.o. daily; additionally p.o. doses are overlapped for several weeks after restarting Decanoate.? Patient gets Decanoate every 2 weeks and literature typically uses q. 3 weeks for conversion so will titrate p.o. Prolixin to about 15 mg daily.? Discussed with patient who agrees 10/02 remains superficially polite; is guarded and continues to have paranoid, persecutory delusions 10/05 remains superficially polite; is guarded and continues to have paranoid, persecutory delusions but lessening a bit in intensity 10/07 remains superficially polite; is guarded; denies all psychiatric symptoms, though intermittently internally preoccupied; pt has denied paranoid, persecutory delusions to senior underwriter despite expressing them to others. Patient complains of some visual changes and akathisia which she attributes to restarting Prolixin and says this is very common for her when she restarts it or has a dose increase. Of note, senior underwriter does not notice any akathisia, tremor or other EPS symptoms however it's possible that patient may be experiencing a subclinical amount of EPS. 10/09Patient reports akathisia and tardive dyskinesia from the Prolixin. Patient shows senior underwriter her mouth which she is moving and says she has some mouth and ton mercedez movements. She c/o restlessness in her legs and is thus walking the hallways. To that end she asks if a.m. dose of Prolixin committee lowered to 2.5 mg to which senior underwriter agrees. At this point it is difficult to say if patient is having actual tardive dyskinesia or if she is feigning TD to lower her p.o. Prolixin dose, which her guardian/brother has reported she may do. When looking at her mouth patient is clearly making it move and when distracted, mouth movements observed to by normal; similar observation made regarding akathesia; however it's possible that there could also be involuntarily mouth movent as well. Guardian says she has never had TD in the past. She does not want any ad ditional medications to mitigate this possible side effect. Patient requests p.o. Prolixin to be discontinued and wants to just remain on the Decanoate. Fruit Receiver agrees with this plan. While it is customary to overlap p.o. Prolixin with Decanoate, as it can take considerable time for Decanoate to reach steady state, it is however possible for decanoate to still become effective without p.o., though it will likely takes longer. 10/11 says TD and akathesia are significantly improved since dc'ing PO prolixin (none observed). She remains affable but guarded. Pt denies all psychiatric symptoms. She does not want to discuss events that occurred around admission or discuss hx diagnosis which she typically disputes, which makes it difficult to assess progress. Continue to rely on her guardians approximation of patients progress. However, off prolixin PO, patient might need to remain longer on unit; will discuss w/ guardian. PLAN: Patient is on a?community Marquis?extended and in effect until Nov 11, 2021. Patient has a?guardian, her brother Kong Guillaume pt signed CV Q 15 minute checks Will DC 1:1 staff will monitor as patient can get intrusive and interfere with others treatment by trying to disparage staff and whispering delusions) 1. Delusional disorder (not sure if AH; no disorganized behavior noted): -patient on community Marquis and cannot refuse Prolixin -will remain for 3rd installment of Prolixin Dec -MEDS: Prolixin Dec 25mg IM on 10/12/21 (last dose of Prolixin Decanoate 25 mg IM received on 09/27/21) -DC'd PO Prolixin due to c/o TD and akathesia (dc'd on 10/10); typically, overalap Prolixin PO with Decanoate? (Decanoate 25 mg Q 2/3 weeks is roughly equivalent to Prolixin p.o. 15-20 mg daily Prolixin Dec is listed on her Marquis (CANNOT REFUSE), reviewed by senior underwriter and specified by her guardian (literature reports decanoate q. 3 weeks or longer has been as effective as q.2 weeks which is something patient can discuss with outpatient provider but is something that may reduce side-effects and thus increase adherence) I spent minutes with the patient and/or on the patient floor today, greater than?50% of which was spent counseling/coordinating care. Reason for contiued inpatient stay Substantial Risk for: inability to function and rapid decompensation
[2021-10-14] MEDS: LORazepam 0.5 MG TABLET PO ×4 (04:55→19:42)
[2021-10-14] MEDS: Melatonin 3 MG TABLET PO ×3 (04:56→21:13)
[2021-10-14] MEDS: polyethylene glycoL 3350 17 GM POWD.PACK PO (12:25)
--- NOTE | 2021-10-14 12:35 | P.PNPSI_ITS ---
Subjective Subjective Date of Service: 10/14/21 Reason For Visit: SECTION 12, THOUGHTS TO HARM OTHERS Subjective Notes: Section 8 Interim History: Pt in her bed. She reports feeling bored but comfortable in the unit. Pt remembered this telegraphic typewriter installer from last time I covered for Dr. Carter. Pt appeared less suspicious of staff in hospital trying to give her elephant which she had described as opioid stronger than fentanyl. She has been mostly in bed, visible at times but taking ativan around the clock to be asleep while in the unit. She denies SI/HI. Medication Compliance: Yes Side effects from medications: No Review of Systems Review of Systems no change since transfer from ED. Pt denies any complaints of physical discomfort. Yes Unobtainable due to mental status and Other (Uncooperative) Constitutional: Reports body ache(s) (Denies), Reports chills (Denies), Reports fatigue, Reports headache(s) (Denies) and Reports malaise (Denies) Reports headache(s) (Denies) Cardiovascular: Reports chest pain (Denies) Gastrointestinal: Reports abdominal pain (Denies) Reports headache(s) (Denies) Endocrine: Reports fatigue Mental Status Exam Mental Status Exam Narrative: Pt is alert and oriented; behavior is? cooperative and calm, friendly on approach, though remains superficial; dressed in casual, appropriate cloths, adequately groomed and with good hygiene; mood is described as good and affect congruent; no irritable edge;? eye contact is appropriate; Speech is normal rate, volume and prosody; no psychomotor agitation present; some TD observed; no akathia observed; thought process is organized and goal directed; Thought content expressed is on treatment; pt denies any delusional thinking, but is guarded regarding symptoms (has recently expressed paranoid delusional and persecutory fears; these however seem be lessening in intensity); no grandiosity expressed; denies SI/HI or AVH;? Patients insight and judgment impaired Diagnostics Vital Signs (24Hr): BMI result Body Mass Index 26.6 Labs Results: 09/22/21 17:48 09/22/21 17:48 Medications Medications Current Medications Acetaminophen (Acetaminophen 325 Mg Tablet) 650 mg PO Q6H PRN PRN Reason: Headache/Pain Mild Scale (1-3) Al Hydroxide/Mg Hydroxide (Magnesium Hydrox/Alum Hydrox 30 Ml Oral.Susp) 30 ml PO Q6H PRN PRN Reason: Heartburn/Nausea Fluphenazine Decanoate (Fluphenazine Decanoate 25 Mg/Ml 5 Ml Vial) 25 mg IM Q 14D@0900 [facility] Last Admin: 10/12/21 09:24 Dose: 25 mg Documented by: Lorazepam (Lorazepam 0.5 Mg Tablet) 0.5 mg PO Q4H PRN PRN Reason: Anxiety Last Admin: 10/14/21 14:03 Dose: 0.5 mg Documented by: Magnesium Hydroxide (Milk Of Magnesia 30 Ml Oral.Susp) 30 ml PO DAILY PRN PRN Reason: Constipation Melatonin (Melatonin 3 Mg Tablet) 3 mg PO BEDTIME PRN PRN Reason: CONTINUED insomnia Last Admin: 10/14/21 04:56 Dose: 3 mg Documented by: Melatonin (Melatonin 3 Mg Tablet) 3 mg PO BEDTIME [facility] Last Admin: 10/13/21 20:04 Dose: 3 mg Documented by: Pharmacy Consult (Consult Rx Perform Med Rec) 1 each MISCELLANE ONCE PRN PRN Reason: Consult order Polyethylene Glycol (Polyethylene Glycol 3350 17 Gm Powd.Pack) 17 gm PO DAILY PRN PRN Reason: Constipation Last Admin: 10/14/21 12:25 Dose: 17 gm Documented by: Trazodone HCl (Trazodone Hcl 50 Mg Tablet) 50 mg PO BEDTIME PRN PRN Reason: Insomnia Last Admin: 10/10/21 01:55 Dose: 50 mg Documented by: Allergies Allergies Allergy/AdvReac Type Severity Reaction Status Date / Time cashew nut Allergy Severe ANAPHYLAXIS Verified 10/04/21 19:44 peanut [Peanut] Allergy Severe ANAPHALAXIS Verified 10/04/21 19:44 Assessment & Plan Assessment & Plan (1) Paranoid: Status: Acute Code(s): F22 - Delusional disorders Assessment and Plan: believes food and medicine are poisoned and that the [facility] police are controlling her due to her refusal to work with them (2) Delusional disorder: Status: Acute Code(s): F22 - Delusional disorders Assessment and Plan: IMPRESSION: Patient is a 61-year-old female with history of Delusional disorder (r/o schizophrenia), on a community Marquis and with her brother as guardian, who presents via EMS following a wellness check by [facility] staff and police who found patient's apartment in a disheveled state and patient with paranoid delusions that her food was poisoned, there were bombs in the toilet and that [facility] staff was a part of the [place] secret police who were planning her demise, in the face of going off her? Prolixin Decanoate this past December.? On admission she denied any SI, HI, AVH or any delusional thinking; she also denied that any of the reported events or findings from [facility]'s wellness check were true and denied that she has a mental illness.? Patient refused to sign in and was on a 12 B.? Patient was willing to take Prolixin p.o. She lacks all insight. HOSPITAL COURSE: Patient continues to lack all insight and has become verbally aggressive p hysically posturing with menacing affect, intruding into staff's personal space, verbally harassing staff and making it difficult for staff to carry out work on the unit.? Patient's behaviors have become unsafe; she refuses to increase p.o. Prolixin and for staff and milieu safety will order Prolixin Decanoate 25 mg IM which is on her Marquis and which her guardian says patient needs and agrees she should get. -signed CV after talking with guardian; also agreed with Prolixin Decanoate -patient superficially polite but easily triggered and intense anger; remains with paranoid, persecutory delusions and some grandiosity 09/30 patient remains superficially polite; guarded.? She has not been challenging staff.? Patient reports she is tired but denies any symptoms; agrees to increasing Prolixin p.o. (which is on Marquis and cannot be refused) -Prolixin 25 mg decanoate is roughly equivalent to getting Prolixin 20 mg p.o. daily; additionally p.o. doses are overlapped for several weeks after restarting Decanoate.? Patient gets Decanoate every 2 weeks and literature typically uses q. 3 weeks for conversion so will titrate p.o. Prolixin to about 15 mg daily.? Discussed with patient who agrees 10/02 remains superficially polite; is guarded and continues to have paranoid, persecutory delusions 10/05 remains superficially polite; is guarded and continues to have paranoid, persecutory delusions but lessening a bit in intensity 10/07 remains superficially polite; is guarded; denies all psychiatric symptoms, though intermittently internally preoccupied; pt has denied paranoid, persecutory delusions to telegraphic typewriter installer despite expressing them to others. Patient complains of some visual changes and akathisia which she attributes to restarting Prolixin and says this is very common for her when she restarts it or has a dose increase. Of note, telegraphic typewriter installer does not notice any akathisia, tremor or other EPS symptoms however it's possible that patient may be experiencing a subclinical amount of EPS. 10/09Patient reports akathisia and tardive dyskinesia from the Prolixin. Patient shows telegraphic typewriter installer her mouth which she is moving and says she has some mouth and tongue movements. She c/o restlessness in her legs and is thus walking the hallways. To that end she asks if a.m. dose of Prolixin committee lowered to 2. 5 mg to which telegraphic typewriter installer agrees. At this point it is difficult to say if patient is having actual tardive dyskinesia or if she is feigning TD to lower her p.o. Prolixin dose, which her guardian/brother has reported she may do. When looking at her mouth patient is clearly making it move and when distracted, mouth movements observed to by normal; similar observation made regarding akathesia; however it's possible that there could also be involuntarily mouth movent as well. Guardian says she has never had TD in the past. She does not want any additional medications to mitigate this possible side effect. Patient requests p.o. Prolixin to be discontinued and wants to just remain on the Decanoate. Private Branch Exchange Operator agrees with this plan. While it is customary to overlap p.o. Prolixin with Decanoate, as it can take considerable time for Decanoate to reach steady state, it is however possible for decanoate to still become effective without p.o., though it will likely takes longer. 10/11 says TD and akathesia are significantly improved since dc'ing PO prolixin (none observed). She remains affable but guarded. Pt denies all psychiatric symptoms. She does not want to discuss events that occurred around admission or discuss hx diagnosis which she typically disputes, which makes it difficult to assess progress. Continue to rely on her guardians approximation of patients progress. However, off prolixin PO, patient might need to remain longer on unit; will discuss w/ guardian. PLAN: Patient is on a?community Marquis?extended and in effect until Nov 11, 2021. Patient has a?guardian, her brother Kong Guillaume pt signed CV Q 15 minute checks Will DC 1:1 staff will monitor as patient can get intrusive and interfere with others treatment by trying to disparage staff and whispering delusions) 1. Delusional disorder (not sure if AH; no disorganized behavior noted): -patient on community Marquis and cannot refuse Prolixin -will remain for 3rd installment of Prolixin Dec -MEDS: Prolixin Dec 25mg IM on 10/12/21 (last dose of Prolixin Decanoate 25 mg IM received on 09/27/21) -DC'd PO Prolixin due to c/o TD and akathesia (dc'd on 10/10); typically, overalap Prolixin PO with Decanoate? (Decanoate 25 mg Q 2/3 weeks is roughly equivalent to Prolixin p.o. 15-20 mg daily Prolixin Dec is listed on her Marquis (CANNOT REFUSE), reviewed by telegraphic typewriter installer and specified by her guardian (literature reports decanoate q. 3 weeks or longer has been as effective as q.2 weeks which is something patient can discuss with outpatient provider but is something that may reduce side-effects and thus increase adherence) 10/14- continue current medications. I spent minutes with the patient and/or on the patient floor today, greater than?50% of which was spent counseling/coordinating care. Reason for contiued inpatient stay Substantial Risk for: inability to function
[2021-10-15] MEDS: LORazepam 0.5 MG TABLET PO ×4 (03:33→20:10)
[2021-10-15] MEDS: Melatonin 3 MG TABLET PO ×2 (03:33→20:06)
[2021-10-15] MEDS: polyethylene glycoL 3350 17 GM POWD.PACK PO (08:23)
--- NOTE | 2021-10-15 12:15 | HO.PSYCHPN ---
Subjective Subjective Date of Service: 10/15/21 Reason For Visit: SECTION 12, THOUGHTS TO HARM OTHERS Subjective Notes: Conditional Voluntary Guardianship: Yes Interim History: Pt in her bed. She reports feeling bored . She was extremely guarded with this writer producer and did not want to engage, beyond saying she was fine . Review of Systems Review of Systems no change since transfer from ED. Pt denies any complaints of physical discomfort. Yes Unobtainable due to mental status and Other (Uncooperative) Constitutional: Reports body ache(s) (Denies), Reports chills (Denies), Reports fatigue, Reports headache(s) (Denies) and Reports malaise (Denies) Reports headache(s) (Denies) Cardiovascular: Reports chest pain (Denies) Gastrointestinal: Reports abdominal pain (Denies) Reports headache(s) (Denies) Endocrine: Reports fatigue Mental Status Exam Mental Status Exam Narrative: Pt is alert and oriented; behavior is? cooperative and calm, friendly on approach, though remains superficial; dressed in casual, appropriate cloths, adequately groomed and with good hygiene; mood is described as good and affect congruent; no irritable edge;? eye contact is appropriate; Speech is normal rate, volume and prosody; no psychomotor agitation present; some TD observed; no akathia observed; thought process is organized and goal directed; Thought content expressed is on treatment; pt denies any delusional thinking, but is guarded regarding symptoms (has recently expressed paranoid delusional and persecutory fears; these however seem be lessening in intensity); no grandiosity expressed; denies SI/HI or AVH;? Patients insight and judgment impaired Patient Appearance: Disheveled and Unkempt Patient Orientation: Person and Situation Level of Consciousness: Awake and Alert Patient Behavior: Guarded, Suspicious, Resistive to Care and Pacing Mood Description: Suspicious, Constricted and Apprehensive Affect Description: Suspicious, Anxious and Apprehensive Patient Cognition Impaired: Yes Ability to Follow Directions: Good Speech Pattern: Clear Diagnostics Vital Signs (24Hr): BMI result Body Mass Index 26.6 Labs Results: 09/22/21 17:48 09/22/21 17:48 Medications Medications Current Medications Acetaminophen (Acetaminophen 325 Mg Tablet) 650 mg PO Q6H PRN PRN Reason: Headache/Pain Mild Scale (1-3) Al Hydroxide/Mg Hydroxide (Magnesium Hydrox/Alum Hydrox 30 Ml Oral.Susp) 30 ml PO Q6H PRN PRN Reason: Heartburn/Nausea Fluphenazine Decanoate (Fluphenazine Decanoate 25 Mg/Ml 5 Ml Vial) 25 mg IM Q14D@0900 [facility] Last Admin: 10/12/21 09:24 Dose: 25 mg Documented by: Lorazepam (Lorazepam 0.5 Mg Tablet) 0.5 mg PO Q4H PRN PRN Reason: Anxiety Last Admin: 10/15/21 08:23 Dose: 0.5 mg Documented by: Magnesium Hydroxide (Milk Of Magnesia 30 Ml Oral.Susp) 30 ml PO DAILY PRN PRN Reason: Constipation Melatonin (Melatonin 3 Mg Tablet) 3 mg PO BEDTIME PRN PRN Reason: CONTINUED insomnia Last Admin: 10/15/21 03:33 Dose: 3 mg Documented by: Melatonin (Melatonin 3 Mg Tablet) 3 mg PO BEDTIME [facility] Last Admin: 10/14/21 19:43 Dose: 3 mg Documented by: Pharmacy Consult (Consult Rx Perform Med Rec) 1 each MISCELLANE ONCE PRN PRN Reason: Consult order Polyethylene Glycol (Polyethylene Glycol 3350 17 Gm Powd.Pack) 17 gm PO DAILY PRN PRN Reason: Constipation Last Admin: 10/15/21 08:23 Dose: 17 gm Documented by: Trazodone HCl (Trazodone Hcl 50 Mg Tablet) 50 mg PO BEDTIME PRN PRN Reason: Insomnia Last Admin: 10/10/21 01:55 Dose: 50 mg Documented by: Allergies Allergies Allergy/AdvReac Type Severity Reaction Status Date / Time cashew nut Allergy Severe ANAPHYLAXIS Verified 10/04/21 19:44 peanut [Peanut] Allergy Severe ANAPHALAXIS Verified 10/04/21 19:44 Assessment & Plan Assessment & Plan (1) Paranoid: Status: Acute Code(s): F22 - Delusional disorders Assessment and Plan: believes food and medicine are poisoned and that the [employer] police are controlling her due to her refusal to work with them (2) Delusional disorder: Status: Acute Code(s): F22 - Delusional disorders Assessment and Plan: IMPRESSION: Patient is a 61-year-old female with history of Delusional disorder (r/o schizophrenia), on a community Marquis and with her brother as guardian, who presents via EMS following a wellness check by [facility] staff and police who found patient's apartment in a disheveled state and patient with paranoid delusions that her food was poisoned, there were bombs in the toilet and that [facility] staff was a part of the [place] secret police who were planning her demise, in the face of going off her? Prolixin Decanoate this past December.? On admission she denied any SI, HI, AVH or any delusional thinking; she also denied that any of the reported events or findings from [facility]'s wellness check were true and denied that she has a mental illness.? Patient refused to sign in and was on a 12 B.? Patient was willing to take Prolixin p.o. She lacks all insight. HOSPITAL COURSE: Patient continues to lack all insight and has become verbally aggressive physically posturing with menacing affect, intruding into staff's personal space, verbally harassing staff and making it difficult for staff to carry out work on the unit.? Patient's behaviors have become unsafe; she refuses to increase p.o. Prolixin and for staff and milieu safety will order Prolixin Decanoate 25 mg IM which is on her Marquis and which her guardian says patient needs and agrees she should get. -signed CV after talking with guardian; also agreed with Prolixin Decanoate -patient superficially polite but easily triggered and intense anger; remains with paranoid, persecutory delusions and some grandiosity 09/30 patient remains superficially polite; guarded.? She has not been challenging staff.? Patient reports she is tired but denies any symptoms; agrees to increasing Prolixin p.o. (which is on Marquis and cannot be refused) -Prolixin 25 mg decanoate is roughly equivalent to getting Prolixin 20 mg p.o. daily; additionally p.o. doses are overlapped for several weeks after restarting Decanoate.? Patient gets Decanoate every 2 weeks and literature typically uses q. 3 weeks for conversion so will titrate p.o. Prolixin to about 15 mg daily.? Discussed with patient who agrees 10/02 remains superficially polite; is guarded and continues to have paranoid, persecutory delusions 10/05 remains superficially polite; is guarded and continues to have paranoid, persecutory delusions but lessening a bit in intensity 10/07 remains superficially polite; is guarded; denies all psychiatric symptoms, though intermittently internally preoccupied; pt has denied paranoid, persecutory delusions to writer producer despite expressing them to others. Patient complains of some visual changes and akathisia which she attributes to restarting Prolixin and says this is very common for her when she restarts it or has a dose increase. Of note, writer producer does not notice any akathisia, tremor or other EPS symptoms however it's possible that patient may be experiencing a subclinical amount of EPS. 10/09Patient reports akathisia and tardive dyskinesia from the Prolixin. Patient shows writer producer her mouth which she is moving and says she has some mouth and tongue movements. She c/o restlessness in her legs and is thus walking the hallways. To that end she asks if a.m. dose of Prolixin committee lowered to 2.5 mg to which writer producer agrees. At this point it is difficult to say if patient is having actual tardive dyskinesia or if she is feigning TD to lower her p.o. Prolixin dose, which her guardian/brother has reported she may do. When looking at her mouth patient is clearly making it move and when distracted, mouth movements observed to by normal; similar observation made regarding akathesia; however it's possible that there could also be involuntarily mouth movent as well. Guardian says she has never had TD in the past. She does not want any additional medications to mitigate this possible side effect. Patient requests p.o. Prolixin to be discontinued and wants to just remain on the Decanoate. Devops Developer agrees with this plan. While it is customary to overlap p.o. Prolixin with Decanoate, as it can take considerable time for Decanoate to reach steady state, it is however possible for decanoate to still become effective without p.o., though it will likely takes longer. 10/11 says TD and akathesia are significantly improved since dc'ing PO prolixin (none observed). She remains affable but guarded. Pt denies all psychiatric symptoms. She does not want to discuss events that occurred around admission or discuss hx diagnosis which she typically disputes, which makes it difficult to assess progress. Continue to rely on her guardians approximation of patients progress. However, off prolixin PO, patient might need to remain longer on unit; will discuss w/ guardian. PLAN: Patient is on a?community Marquis?extended and in effect until Nov 11, 2021. Patient has a?guardian, her brother Kong Guillaume pt signed CV Q 15 minute checks Will DC 1:1 staff will monitor as patient can get intrusive and interfere with others treatment by trying to disparage staff and whispering delusions) 1. Delusional disorder (not sure if AH; no disorganized behavior noted): -patient on community Marquis and cannot refuse Prolixin -will remain for 3rd installment of Prolixin Dec -MEDS: Prolixin Dec 25mg IM on 10/12/21 (last dose of Prolixin Decanoate 25 mg IM received on 09/27/21) -DC'd PO Prolixin due to c/o TD and akathesia (dc'd on 10/10); typically, overalap Prolixin PO with Decanoate? (Decanoate 25 mg Q 2/3 weeks is roughly equivalent to Prolixin p.o. 15-20 mg daily Prolixin Dec is listed on her Marquis (CANNOT REFUSE), reviewed by writer producer and specified by her guardian (literature reports decanoate q. 3 weeks or longer has been as effective as q.2 weeks which is something patient can discuss with outpatient provider but is something that may reduce side-effects and thus increase adherence) 10/14- continue current medications. 10/15/21 No change to the current plan I spent minutes with the patient and/or on the patient floor today, greater than?50% of which was spent counseling/coordinating care. Patient educated on: diagnosis and medication risk/benefits Informed Consent: does not understand Reason for contiued inpatient stay Substantial Risk for: rapid decompensation
[2021-10-15] MEDS: Milk of Magnesia 30 ML ORAL.SUSP PO (12:58)
[2021-10-15 18:00] VITALS: RESP 16
[2021-10-16] MEDS: polyethylene glycoL 3350 17 GM POWD.PACK PO (06:21)
[2021-10-16] MEDS: LORazepam 0.5 MG TABLET PO ×4 (06:21→19:28)
[2021-10-16 17:46] VITALS: RESP 16
--- NOTE | 2021-10-16 18:21 | P.PNPSI_ITS ---
Subjective Subjective Date of Service: 10/16/21 Reason For Visit: SECTION 12, THOUGHTS TO HARM OTHERS Subjective Notes: Conditional Voluntary Guardianship: Yes Interim History: Pt in her bed. She reports feeling bored . She was extremely guarded with this sheet writer and did not want to engage, beyond saying she was fine . She complains of constipation and requests an increase in the dose of miralax. She states she uses this three times a day at home. She reports it is from [employer], and dismissed any reference to her being entirely sedentary as an explanation. She reports that she did not stop her medication prior to admission, but rather that they were DC by her doctor and she was DC from the program since she does not have a mental illness, and that her team agrees. She has marked TD, or at least what appears to be TD like movements that were not as pronounced yesterday. She refuses to talk more about her situation and politely dismisses this sheet writer. She did state that she has a Marquis Order and that the order will be extended. This needs to be discussed with [facility] legal. Medication Compliance: Yes Review of Systems Review of Systems no change since transfer from ED. Pt denies any complaints of physical discomfort. Yes Unobtainable due to mental status and Other (Uncooperative) Constitutional: Reports body ache(s) (Denies), Reports chills (Denies), Reports fatigue, Reports headache(s) (Denies) and Reports malaise (Denies) Reports headache(s) (Denies) Cardiovascular: Reports chest pain (Denies) Gastrointestinal: Reports abdominal pain (Denies) Reports headache(s) (Denies) Endocrine: Reports fatigue Mental Status Exam Mental Status Exam Narrative: Pt is alert and oriented; behavior is? cooperative and calm, friendly on approach, though remains superficial; dressed in casual, appropriate cloths, adequately groomed and with good hygiene; mood is described as good and affect congruent; no irritable edge;? eye contact is appropriate; Speech is normal rate, volume and prosody; no psychomotor agitation present; some TD observed; no akathia observed; thought process is organized and goal directed; Thought content expressed is on treatment; pt denies any delusional thinking, but is guarded regarding symptoms (has recently expressed paranoid delusional and persecutory fears; these however seem be lessening in intensity); no grandiosity expressed; denies SI/HI or AVH;? Patients insight and judgment impaired Patient Appearance: Disheveled and Unkempt Patient Orientation: Person and Situation Level of Consciousness: Awake and Alert Patient Behavior: Guarded, Suspicious, Resistive to Care and Pacing Mood Description: Suspicious, Constricted and Apprehensive Affect Description: Suspicious, Anxious and Apprehensive Patient Cognition Impaired: Yes Ability to Follow Directions: Good Speech Pattern: Clear Diagnostics Vital Signs (24Hr): Vital Signs - 24 hr 10/16/21 17:46 Respiratory Rate 16 BMI result Body Mass Index 26.6 Labs Results: 09/22/21 17:48 09/22/21 17:48 Medications Medications Current Medications Acetaminophen (Acetaminophen 325 Mg Tablet) 650 mg PO Q6H PRN PRN Reason: Headache/Pain Mild Scale (1-3) Al Hydroxide/Mg Hydroxide (Magnesium Hydrox/Alum Hydrox 30 Ml Oral.Susp) 30 ml PO Q6H PRN PRN Reason: Heartburn/Nausea Fluphenazine Decanoate (Fluphenazine Decanoate 25 Mg/Ml 5 Ml Vial) 25 mg IM Q 14D@0900 [facility] Last Admin: 10/12/21 09:24 Dose: 25 mg Documented by: Lorazepam (Lorazepam 0.5 Mg Tablet) 0.5 mg PO Q4H PRN PRN Reason: Anxiety Last Admin: 10/16/21 15:41 Dose: 0.5 mg Documented by: Magnesium Hydroxide (Milk Of Magnesia 30 Ml Oral.Susp) 30 ml PO DAILY PRN PRN Reason: Constipation Last Admin: 10/15/21 12:58 Dose: 30 ml Documented by: Melatonin (Melatonin 3 Mg Tablet) 3 mg PO BEDTIME PRN PRN Reason: CONTINUED insomnia Last Admin: 10/15/21 03:33 Dose: 3 mg Documented by: Melatonin (Melatonin 3 Mg Tablet) 3 mg PO BEDTIME [facility] Last Admin: 10/15/21 20:06 Dose: 3 mg Documented by: Pharmacy Consult (Consult Rx Perform Med Rec) 1 each MISCELLANE ONCE PRN PRN Reason: Consult order Polyethylene Glycol (Polyethylene Glycol 3350 17 Gm Powd.Pack) 17 gm PO BID PRN PRN Reason: Constipation Trazodone HCl (Trazodone Hcl 50 Mg Tablet) 50 mg PO BEDTIME PRN PRN Reason: Insomnia Last Admin: 10/10/21 01:55 Dose: 50 mg Documented by: Allergies Allergies Allergy/AdvReac Type Severity Reaction Status Date / Time cashew nut Allergy Severe ANAPHYLAXIS Verified 10/04/21 19:44 peanut [Peanut] Allergy Severe ANAPHALAXIS Verified 10/04/21 19:44 Assessment & Plan Assessment & Plan (1) Paranoid: Status: Acute Code(s): F22 - Delusional disorders Assessment and Plan: believes food and medicine are poisoned and that the [facility] police are controlling her due to her refusal to work with them (2) Delusional disorder: Status: Acute Code(s): F22 - Delusional disorders Assessment and Plan: IMPRESSION: Patient is a 61-year-old female with history of Delusional disorder (r/o schizophrenia), on a community Marquis and with her brother as guardian, who presents via EMS following a wellness check by [facility] staff and police who found patient's apartment in a disheveled state and patient with paranoid delusions that her food was poisoned, there were bombs in the toilet and that [facility] staff was a part of the [facility] secret police who were planning her demise, in the face of going off her? Prolixin Decanoate this past December.? On admission she denied any SI, HI, AVH or any delusional thinking; she also denied that any of the reported events or findings from [facility]'s wellness check were true and denied that she has a mental illness.? Patient refused to sign in and was on a 12 B.? Patient was willing to take Prolixin p.o. She lacks all insight. HOSPITAL COURSE: Patient continues to lack all insight and has become verbally aggressive phy sically posturing with menacing affect, intruding into staff's personal space, verbally harassing staff and making it difficult for staff to carry out work on the unit.? Patient's behaviors have become unsafe; she refuses to increase p.o. Prolixin and for staff and milieu safety will order Prolixin Decanoate 25 mg IM which is on her Marquis and which her guardian says patient needs and agrees she should get. -signed CV after talking with guardian; also agreed with Prolixin Decanoate -patient superficially polite but easily triggered and intense anger; remains with paranoid, persecutory delusions and some grandiosity 09/30 patient remains superficially polite; guarded.? She has not been challenging staff.? Patient reports she is tired but denies any symptoms; agrees to increasing Prolixin p.o. (which is on Marquis and cannot be refused) -Prolixin 25 mg decanoate is roughly equivalent to getting Prolixin 20 mg p.o. daily; additionally p.o. doses are overlapped for several weeks after restarting Decanoate.? Patient gets Decanoate every 2 weeks and literature typically uses q. 3 weeks for conversion so will titrate p.o. Prolixin to about 15 mg daily.? Discussed with patient who agrees 10/02 remains superficially polite; is guarded and continues to have paranoid, persecutory delusions 10/05 remains superficially polite; is guarded and continues to have paranoid, persecutory delusions but lessening a bit in intensity 10/07 remains superficially polite; is guarded; denies all psychiatric symptoms, though intermittently internally preoccupied; pt has denied paranoid, persecutory delusions to sheet writer despite expressing them to others. Patient complains of some visual changes and akathisia which she attributes to restarting Prolixin and says this is very common for her when she restarts it or has a dose increase. Of note, sheet writer does not notice any akathisia, tremor or other EPS symptoms however it's possible that patient may be experiencing a subclinical amount of EPS. 10/09Patient reports akathisia and tardive dyskinesia from the Prolixin. Patient shows sheet writer her mouth which she is moving and says she has some mouth and tongue movements. She c/o restlessness in her legs and is thus walking the hallways. To that end she asks if a.m. dose of Prolixin committee lowered to 2.5 mg to which sheet writer agrees. At this point it is difficult to say if patient is having actual tardive dyskinesia or if she is feigning TD to lower her p.o. Prolixin dose, which her guardian/brother has reported she may do. When looking at her mouth patient is clearly making it move and when distracted, mouth movements observed to by normal; similar observation made regarding akathesia; however it's possible that there could also be involuntarily mouth movent as well. Guardian says she has never had TD in the past. She does not want any additional medications to mitigate this possible side effect. Patient requests p.o. Prolixin to be discontinued and wants to just remain on the Decanoate. Hydrology Teacher agrees with this plan. While it is customary to overlap p.o. Prolixin with Decanoate, as it can take considerable time for Decanoate to reach steady state, it is however possible for decanoate to still become effective without p.o., though it will likely takes longer. 10/11 says TD and akathesia are significantly improved since dc'ing PO prolixin (none observed). She remains affable but guarded. Pt denies all psychiatric symptoms. She does not want to discuss events that occurred around admission or discuss hx diagnosis which she typically disputes, which makes it difficult to assess progress. Continue to rely on her guardians approximation of patients progress. However, off prolixin PO, patient might need to remain longer on unit; will discuss w/ guardian. PLAN: Patient is on a?community Marquis?extended and in effect until Nov 11, 2021. Patient has a?guardian, her brother Kong Guillaume pt signed CV Q 15 minute checks Will DC 1:1 staff will monitor as patient can get intrusive and interfere with others treatment by trying to disparage staff and whispering delusions) 1. Delusional disorder (not sure if AH; no disorganized behavior noted): -patient on community Marquis and cannot refuse Prolixin -will remain for 3rd installment of Prolixin Dec -MEDS: Prolixin Dec 25mg IM on 10/12/21 (last dose of Prolixin Decanoate 25 mg IM received on 09/27/21) -DC'd PO Prolixin due to c/o TD and akathesia (dc'd on 10/10); typically, overalap Prolixin PO with Decanoate? (Decanoate 25 mg Q 2/3 weeks is roughly eq uivalent to Prolixin p.o. 15-20 mg daily Prolixin Dec is listed on her Marquis (CANNOT REFUSE), reviewed by sheet writer and specified by her guardian (literature reports decanoate q. 3 weeks or longer has been as effective as q.2 weeks which is something patient can discuss with outpatient provider but is something that may reduce side-effects and thus increase adherence) 10/14- continue current medications. 10/15/21 No change to the current plan 10/16/21 No change to treatment plan I spent minutes with the patient and/or on the patient floor today, greater than?50% of which was spent counseling/coordinating care. Reason for contiued inpatient stay Substantial Risk for: rapid decompensation
[2021-10-16] MEDS: Melatonin 3 MG TABLET PO ×2 (19:28→20:10)
[2021-10-17] MEDS: LORazepam 0.5 MG TABLET PO ×4 (03:15→18:13)
[2021-10-17] MEDS: Melatonin 3 MG TABLET PO ×3 (03:15→20:30)
[2021-10-17] MEDS: polyethylene glycoL 3350 17 GM POWD.PACK PO (08:10)
--- NOTE | 2021-10-17 15:20 | HO.PSYCHPN ---
Subjective Subjective Date of Service: 10/17/21 Reason For Visit: SECTION 12, THOUGHTS TO HARM OTHERS Subjective Notes: Section 8 Interim History: Pt superficially cooperative. Pt reports sleeping and eating well. She reports she had BM yesterday. No concern about constipation any more. She does not think she needs psychiatric treatment but in agreement to continue medications. She denies SI/HI. She is mostly in bed. No behavioral concerns. involuntary perioral movement. no tapping feet. Medication Compliance: Yes Review of Systems Review of Systems no change since transfer from ED. Pt denies any complaints of physical discomfort. Yes Unobtainable due to mental status and Other (Uncooperative) Constitutional: Reports body ache(s) (Denies), Reports chills (Denies), Reports fatigue, Reports headache(s) (Denies) and Reports malaise (Denies) Reports headache(s) (Denies) Cardiovascular: Reports chest pain (Denies) Gastrointestinal: Reports abdominal pain (Denies) Reports headache(s) (Denies) Endocrine: Reports fatigue Mental Status Exam Mental Status Exam Narrative: Pt is alert and oriented; behavior is? cooperative and calm, friendly on approach, though remains superficial; dressed in casual, appropriate cloths, adequately groomed and with good hygiene; mood is described as good and affect congruent; no irritable edge;? eye contact is appropriate; Speech is normal rate, volume and prosody; no psychomotor agitation present; some TD observed; no akathia observed; thought process is organized and goal directed; Thought content expressed is on treatment; pt denies any delusional thinking, but is guarded regarding symptoms (has recently expressed paranoid delusional and persecutory fears; these however seem be lessening in intensity); no grandiosity expressed; denies SI/HI or AVH;? Patients insight and judgment impaired Patient Appearance: Disheveled and Unkempt Patient Orientation: Person and Situation Level of Consciousness: Awake and Alert Patient Behavior: Guarded, Suspicious, Resistive to Care and Pacing Mood Description: Suspicious, Constricted and Apprehensive Affect Description: Suspicious, Anxious and Apprehensive Patient Cognition Impaired: Yes Ability to Follow Directions: Good Speech Pattern: Clear Diagnostics Vital Signs (24Hr): Vital Signs - 24 hr 10/16/21 17:46 Respiratory Rate 16 BMI result Body Mass Index 26.6 Labs Results: 09/22/21 17:48 09/22/21 17:48 Medications Medications Current Medications Acetaminophen (Acetaminophen 325 Mg Tablet) 650 mg PO Q6H PRN PRN Reason: Headache/Pain Mild Scale (1-3) Al Hydroxide/Mg Hydroxide (Magnesium Hydrox/Alum Hydrox 30 Ml Oral.Susp) 30 ml PO Q6H PRN PRN Reason: Heartburn/Nausea Fluphenazine Decanoate (Fluphenazine Decanoate 25 Mg/Ml 5 Ml Vial) 25 mg IM Q14D@0900 [facility] Last Admin: 10/12/21 09:24 Dose: 25 mg Documented by: Lorazepam (Lorazepam 0.5 Mg Tablet) 0.5 mg PO Q4H PRN PRN Reason: Anxiety Last Admin: 10/17/21 12:40 Dose: 0.5 mg Documented by: Magnesium Hydroxide (Milk Of Magnesia 30 Ml Oral.Susp) 30 ml PO DAILY PRN PRN Reason: Constipation Last Admin: 10/15/21 12:58 Dose: 30 ml Documented by: Melatonin (Melatonin 3 Mg Tablet) 3 mg PO BEDTIME PRN PRN Reason: CONTINUED insomnia Last Admin: 10/17/21 03:15 Dose: 3 mg Documented by: Melatonin (Melatonin 3 Mg Tablet) 3 mg PO BEDTIME [facility] Last Admin: 10/16/21 19:28 Dose: 3 mg Documented by: Pharmacy Consult (Consult Rx Perform Med Rec) 1 each MISCELLANE ONCE PRN PRN Reason: Consult order Polyethylene Glycol (Polyethylene Glycol 3350 17 Gm Powd.Pack) 17 gm PO BID PRN PRN Reason: Constipation Last Admin: 10/17/21 08:10 Dose: 17 gm Documented by: Trazodone HCl (Trazodone Hcl 50 Mg Tablet) 50 mg PO BEDTIME PRN PRN Reason: Insomnia Last Admin: 10/10/21 01:55 Dose: 50 mg Documented by: Allergies Allergies Allergy/AdvReac Type Severity Reaction Status Date / Time cashew nut Allergy Severe ANAPHYLAXIS Verified 10/04/21 19:44 peanut [Peanut] Allergy Severe ANAPHALAXIS Verified 10/04/21 19:44 Assessment & Plan Assessment & Plan (1) Paranoid: Status: Acute Code(s): F22 - Delusional disorders Assessment and Plan: believes food and [facility] are poisoned and [facility] due to her refusal to work with them (2) Delusional disorder: Status: Acute Code(s): F22 - Delusional disorders Assessment and Plan: IMPRESSION: Patient is a 61-year-old female with history of Delusional disorder (r/o schizophrenia), on a community Marquis and with her brother as guardian, who presents via EMS following a wellness check by [facility] staff and police who found patient's apartment in a disheveled state and patient with paranoid delusions that her food was poisoned, there were bombs in the toilet and that [facility] staff was a part of the [place] secret police who were planning her demise, in the face of going off her? Prolixin Decanoate this past December.? On admission she denied any SI, HI, AVH or any delusional thinking; she also denied that any of the reported events or findings from [facility]'s wellness check were true and denied that she has a mental illness.? Patient refused to sign in and was on a 12 B.? Patient was willing to take Prolixin p.o. She lacks all insight. HOSPITAL COURSE: Patient continues to lack all insight and has become verbally aggressive physically posturing with menacing affect, intruding into staff's personal space, verbally harassing staff and making it difficult for staff to carry out work on the unit.? Patient's behaviors have become unsafe; she refuses to increase p.o. Prolixin and for staff and milieu safety will order Prolixin Decanoate 25 mg IM which is on her Marquis and which her guardian says patient needs and agrees she should get. -signed CV after talking with guardian; also agreed with Prolixin Decanoate -patient superficially polite but easily triggered and intense anger; remains with paranoid, persecutory delusions and some grandiosity 09/30 patient remains superficially polite; guarded.? She has not been challenging staff.? Patient reports she is tired but denies any symptoms; agrees to increasing Prolixin p.o. (which is on Marquis and cannot be refused) -Prolixin 25 mg decanoate is roughly equivalent to getting Prolixin 20 mg p.o. daily; additionally p.o. doses are overlapped for several weeks after restarting Decanoate.? Patient gets Decanoate every 2 weeks and literature typically uses q. 3 weeks for conversion so will titrate p.o. Prolixin to about 15 mg daily.? Discussed with patient who agrees 10/02 remains superficially polite; is guarded and continues to have paranoid, persecutory delusions 10/05 remains superficially polite; is guarded and continues to have paranoid, persecutory delusions but lessening a bit in intensity 10/07 remains superficially polite; is guarded; denies all psychiatric symptoms, though intermittently internally preoccupied; pt has denied paranoid, persecutory delusions to copywriter despite expressing them to others. Patient complains of some visual changes and akathisia which she attributes to restarting Prolixin and says this is very common for her when she restarts it or has a dose increase. Of note, copywriter does not notice any akathisia, tremor or other EPS symptoms however it's possible that patient may be experiencing a subclinical amount of EPS. 10/09Patient reports akathisia and tardive dyskinesia from the Prolixin. Patient shows copywriter her mouth which she is moving and says she has some mouth and tongue movements. She c/o restlessness in her legs and is thus walking the hallways. To that end she asks if a.m. dose of Prolixin committee lowered to 2.5 mg to which copywriter agrees. At this point it is difficult to say if patient is having actual tardive dyskinesia or if she is feigning TD to lower her p.o. Prolixin dose, which her guardian/brother has reported she may do. When looking at her mouth patient is clearly making it move and when distracted, mouth movements observed to by normal; similar observation made regarding akathesia; however it's possible that there could also be involuntarily mouth movent as well. Guardian says she has never had TD in the past. She does not want any additional medications to mitigate this possible side effect. Patient requests p.o. Prolixin to be discontinued and wants to just remain on the Decanoate. Carpentry Professional agrees with this plan. While it is customary to overlap p.o. Prolixin with Decanoate, as it can take considerable time for Decanoate to reach steady state, it is however possible for decanoate to still become effective without p.o., though it will likely takes longer. 10/11 says TD and akathesia are significantly improved since dc'ing PO prolixin (none observed). She remains affable but guarded. Pt denies all psychiatric symptoms. She does not want to discuss events that occurred around admission or discuss hx diagnosis which she typically disputes, which makes it difficult to assess progress. Continue to rely on her guardians approximation of patients progress. However, off prolixin PO, patient might need to remain longer on unit; will discuss w/ guardian. PLAN: Patient is on a?community Marquis?extended and in effect until Nov 11, 2021. Patient has a?guardian, her brother Kong Guillaume pt signed CV Q 15 minute checks Will DC 1:1 staff will monitor as patient can get intrusive and interfere with others treatment by trying to disparage staff and whispering delusions) 1. Delusional disorder (not sure if AH; no disorganized behavior noted): -patient on [employer] Marquis and cannot refuse Prolixin -will remain for 3rd installment of Prolixin Dec -MEDS: Prolixin Dec 25mg IM on 10/12/21 (last dose of Prolixin Decanoate 25 mg IM received on 09/27/21) -DC'd PO Prolixin due to c/o TD and akathesia (dc'd on 10/10); typically, overalap Prolixin PO with Decanoate? (Decanoate 25 mg Q 2/3 weeks is roughly equivalent to Prolixin p.o. 15-20 mg daily Prolixin Dec is listed on her Marquis (CANNOT REFUSE), reviewed by copywriter and specified by her guardian (literature reports decanoate q. 3 weeks or longer has been as effective as q.2 weeks which is something patient can discuss with outpatient provider but is something that may reduce side-effects and thus increase adherence) 10/14- continue current medications. 10/15/21 No change to the current plan 10/16/21 No change to treatment plan 10/17: continue current treatment. I spent minutes with the patient and/or on the patient floor today, greater than?50% of which was spent counseling/coordinating care. Reason for contiued inpatient stay Substantial Risk for: inability to function
[2021-10-17 18:00] VITALS: RESP 16
[2021-10-18] MEDS: LORazepam 0.5 MG TABLET PO ×2 (02:05→10:02)
[2021-10-18] MEDS: Melatonin 3 MG TABLET PO ×3 (02:05→23:11)
[2021-10-18] MEDS: polyethylene glycoL 3350 17 GM POWD.PACK PO (08:33)
--- NOTE | 2021-10-18 09:50 | HO.PSYCHPN ---
Subjective Subjective Date of Service: 10/18/21 Reason For Visit: SECTION 12, THOUGHTS TO HARM OTHERS Subjective Notes: Section 8 Interim History: Pt superficially cooperative. Pt continues to report that she is sleeping and eating well. No constipation, which was concern over the weekend. Pt denies VH/AH. NO overt delusional content reported. Pt reports she hopes to return home soon. Pt denied SI/HI. No behavioral concerns. She is mostly in her room, minimally interacting with peers. but pleasant on approach. Medication Compliance: Yes Side effects from medications: Yes Attending Groups: No Review of Systems Review of Systems no change since transfer from ED. Pt denies any complaints of physical discomfort. Yes Unobtainable due to mental status and Other (Uncooperative) Constitutional: Reports body ache(s) (Denies), Reports chills (Denies), Reports fatigue, Reports headache(s) (Denies) and Reports malaise (Denies) Reports headache(s) (Denies) Cardiovascular: Reports chest pain (Denies) Gastrointestinal: Reports abdominal pain (Denies) Reports headache(s) (Denies) Endocrine: Reports fatigue Mental Status Exam Mental Status Exam Narrative: Pt is alert and oriented; behavior is? cooperative and calm, friendly on approach, though remains superficial; dressed in casual, appropriate cloths, adequately groomed and with good hygiene; mood is described as good and affect congruent; no irritable edge;? eye contact is appropriate; Speech is normal rate, volume and prosody; no psychomotor agitation present; some TD observed; no akathia observed; thought process is organized and goal directed; Thought content expressed is on treatment; pt denies any delusional thinking, but is guarded regarding symptoms (has recently expressed paranoid delusional and persecutory fears; these however seem be lessening in intensity); no grandiosity expressed; denies SI/HI or AVH;? Patients insight and judgment impaired Diagnostics Vital Signs (24Hr): Vital Signs - 24 hr 10/17/21 18:00 Respiratory Rate 16 BMI result Body Mass Index 26.6 Labs Results: 09/22/21 17:48 09/22/21 17:48 Medications Medications Current Medications Acetaminophen (Acetaminophen 325 Mg Tablet) 650 mg PO Q6H PRN PRN Reason: Headache/Pain Mild Scale (1-3) Al Hydroxide/Mg Hydroxide (Magnesium Hydrox/Alum Hydrox 30 Ml Oral.Susp) 30 ml PO Q6H PRN PRN Reason: Heartburn/Nausea Fluphenazine Decanoate (Fluphenazine Decanoate 25 Mg/Ml 5 Ml Vial) 25 mg IM Q14D@0900 [facility] Last Admin: 10/12/21 09:24 Dose: 25 mg Documented by: Lorazepam (Lorazepam 0.5 Mg Tablet) 0.5 mg PO Q4H PRN PRN Reason: Anxiety Last Admin: 10/18/21 02:05 Dose: 0.5 mg Documented by: Magnesium Hydroxide (Milk Of Magnesia 30 Ml Oral.Susp) 30 ml PO DAILY PRN PRN Reason: Constipation Last Admin: 10/15/21 12:58 Dose: 30 ml Documented by: Melatonin (Melatonin 3 Mg Tablet) 3 mg PO BEDTIME PRN PRN Reason: CONTINUED insomnia Last Admin: 10/18/21 03:36 Dose: 3 mg Documented by: Melatonin (Melatonin 3 Mg Tablet) 3 mg PO BEDTIME [facility] Last Admin: 10/17/21 19:25 Dose: 3 mg Documented by: Pharmacy Consult (Consult Rx Perform Med Rec) 1 each MISCELLANE ONCE PRN PRN Reason: Consult order Polyethylene Glycol (Polyethylene Glycol 3350 17 Gm Powd.Pack) 17 gm PO BID PRN PRN Reason: Constipation Last Admin: 10/18/21 08:33 Dose: 17 gm Documented by: Trazodone HCl (Trazodone Hcl 50 Mg Tablet) 50 mg PO BEDTIME PRN PRN Reason: Insomnia Last Admin: 10/10/21 01:55 Dose: 50 mg Documented by: Allergies Allergies Allergy/AdvReac Type Severity Reaction Status Date / Time cashew nut Allergy Severe ANAPHYLAXIS Verified 10/04/21 19:44 peanut [Peanut] Allergy Severe ANAPHALAXIS Verified 10/04/21 19:44 Assessment & Plan Assessment & Plan (1) Paranoid: Status: Acute Code(s): F22 - Delusional disorders Assessment and Plan: believes food and medicine are poisoned and that the [employer] police are controlling her due to her refusal to work with them (2) Delusional disorder: Status: Acute Code(s): F22 - Delusional disorders Assessment and Plan: IMPRESSION: Patient is a 61-year-old female with history of Delusional disorder (r/o schizophrenia), on a [employer] Marquis and with her brother as guardian, who presents via EMS following a wellness check by [facility] staff and police who found patient's apartment in a disheveled state and patient with paranoid delusions that her food was poisoned, there were bombs in the toilet and that [facility] staff was a part of the [place] secret police who were planning her demise, in the face of going off her? Prolixin Decanoate this past December.? On admission she denied any SI, HI, AVH or any delusional thinking; she also denied that any of the reported events or findings from [facility]'s wellness check were true and denied that she has a mental illness.? Patient refused to sign in and was on a 12 B.? Patient was willing to take Prolixin p.o. She lacks all insight. HOSPITAL COURSE: Patient continues to lack all insight and has become verbally aggressive physically posturing with menacing affect, intruding into staff's personal space, verbally harassing staff and making it difficult for staff to carry out work on the unit.? Patient's behaviors have become unsafe; she refuses to increase p.o. Prolixin and for staff and milieu safety will order Prolixin Decanoate 25 mg IM which is on her Marquis and which her guardian says patient needs and agrees she should get. -signed CV after talking with guardian; also agreed with Prolixin Decanoate -patient superficially polite but easily triggered and intense anger; remains with paranoid, persecutory delusions and some grandiosity 09/30 patient remains superficially polite; guarded.? She has not been challenging staff.? Patient reports she is tired but denies any symptoms; agrees to increasing Prolixin p.o. (which is on Marquis and cannot be refused) -Prolixin 25 mg decanoate is roughly equivalent to getting Prolixin 20 mg p.o. daily; additionally p.o. doses are overlapped for several weeks after restarting Decanoate.? Patient gets Decanoate every 2 weeks and literature typically uses q. 3 weeks for conversion so will titrate p.o. Prolixin to about 15 mg daily.? Discussed with patient who agrees 10/02 remains superficially polite; is guarded and continues to have paranoid, persecutory delusions 10/05 remains superficially polite; is guarded and continues to have paranoid, persecutory delusions but lessening a bit in intensity 10/07 remains superficially polite; is guarded; denies all psychiatric symptoms, though intermittently internally preoccupied; pt has denied paranoid, persecutory delusions to specification writer despite expressing them to others. Patient complains of some visual changes and akathisia which she attributes to restarting Prolixin and says this is very common for her when she restarts it or has a dose increase. Of note, specification writer does not notice any akathisia, tremor or other EPS symptoms however it's possible that patient may be experiencing a subclinical amount of EPS. 10/09Patient reports akathisia and tardive dyskinesia from the Prolixin. Patient shows specification writer her mouth which she is moving and says she has some mouth and tongue movements. She c/o restlessness in her legs and is thus walking the hallways. To that end she asks if a.m. dose of Prolixin committee lowered to 2.5 mg to which specification writer agrees. At this point it is difficult to say if patient is having actual tardive dyskinesia or if she is feigning TD to lower her p.o. Prolixin dose, which her guardian/brother has reported she may do. When looking at her mouth patient is clearly making it move and when distracted, mouth movements observed to by normal; similar observation made regarding akathesia; however it's possible that there could also be involuntarily mouth movent as well. Guardian says she has never had TD in the past. She does not want any additional medications to mitigate this possible side effect. Patient requests p.o. Prolixin to be discontinued and wants to just remain on the Decanoate. Production Administrator agrees with this plan. While it is customary to overlap p.o. Prolixin with Decanoate, as it can take considerable time for Decanoate to reach steady state, it is however possible for decanoate to still become effective without p.o., though it will likely takes longer. 10/11 says TD and akathesia are significantly improved since dc'ing PO prolixin (none observed). She remains affable but guarded. Pt denies all psychiatric symptoms. She does not want to discuss events that occurred around admission or discuss hx diagnosis which she typically disputes, which makes it difficult to assess progress. Continue to rely on her guardians approximation of patients progress. However, off prolixin PO, patient might need to remain longer on unit; will discuss w/ guardian. PLAN: Patient is on a?community Marquis?extended and in effect until Nov 11, 2021. Patient has a?guardian, her brother Kong Guillaume pt signed CV Q 15 minute checks Will DC 1:1 staff will monitor as patient can get intrusive and interfere with others treatment by trying to disparage staff and whispering delusions) 1. Delusional disorder (not sure if AH; no disorganized behavior noted): -patient on community Marquis and cannot refuse Prolixin -will remain for 3rd installment of Prolixin Dec -MEDS: Prolixin Dec 25mg IM on 10/12/21 (last dose of Prolixin Decanoate 25 mg IM received on 09/27/21) -DC'd PO Prolixin due to c/o TD and akathesia (dc'd on 10/10); typically, overalap Prolixin PO with Decanoate? (Decanoate 25 mg Q 2/3 weeks is roughly equivalent to Prolixin p.o. 15-20 mg daily Prolixin Dec is listed on her Marquis (CANNOT REFUSE), reviewed by specification writer and specified by her guardian (literature reports decanoate q. 3 weeks or longer has been as effective as q.2 weeks which is something patient can discuss with outpatient provider but is something that may reduce side-effects and thus increase adherence) 10/14- continue current medications. 10/15/21 No change to the current plan 10/16/21 No change to treatment plan 10/17: continue current treatment. 10/18: continue current treatment. I spent minutes with the patient and/or on the patient floor today, greater than?50% of which was spent counseling/coordinating care. Reason for contiued inpatient stay Substantial Risk for: inability to function
[2021-10-18 18:00] VITALS: RESP 16
[2021-10-19] MEDS: Melatonin 3 MG TABLET PO ×3 (00:14→21:05)
[2021-10-19] MEDS: polyethylene glycoL 3350 17 GM POWD.PACK PO (08:31)
--- NOTE | 2021-10-19 10:24 | HO.PSYCHPN ---
Subjective Subjective Date of Service: 10/19/21 Reason For Visit: SECTION 12, THOUGHTS TO HARM OTHERS Interim History: Patient reports that she is doing well and denies any complaints. She reports some mild residual tongue fasciculations but says it is much better. Reports akathisia type breathlessness has resolved. Patient denies any psychiatric symptoms, SI, HI AVH or delusional thinking and remains difficult to engage with psychiatric history. Patient continues to periodically refuse vitals. Mental Status Exam Mental Status Exam Narrative: Pt is alert and oriented; behavior is? cooperative and calm, friendly on approach, though remains superficial; dressed in casual, appropriate cloths, adequately groomed and with good hygiene; mood is described as good and affect congruent; no irritable edge;? eye contact is appropriate; Speech is normal rate, volume and prosody; no psychomotor agitation present; no TD observed; no akathia observed; thought process is organized and goal directed; Thought content expressed is on treatment; pt denies any delusional thinking, but is guarded regarding hx; no grandiosity expressed; denies SI/HI or AVH;? Patients insight and judgment impaired Diagnostics Vital Signs (24Hr): Vital Signs - 24 hr 10/18/21 18:00 Respiratory Rate 16 BMI result Body Mass Index 26.6 Labs Results: 09/22/21 17:48 09/22/21 17:48 Medications Medications Current Medications Acetaminophen (Acetaminophen 325 Mg Tablet) 650 mg PO Q6H PRN PRN Reason: Headache/Pain Mild Scale (1-3) Al Hydroxide/Mg Hydroxide (Magnesium Hydrox/Alum Hydrox 30 Ml Oral.Susp) 30 ml PO Q6H PRN PRN Reason: Heartburn/Nausea Fluphenazine Decanoate (Fluphenazine Decanoate 25 Mg/Ml 5 Ml Vial) 25 mg IM Q14D@0900 [facility] Last Admin: 10/12/21 09:24 Dose: 25 mg Documented by: Lorazepam (Lorazepam 0.5 Mg Tablet) 0.5 mg PO Q4H PRN PRN Reason: Anxiety Last Admin: 10/18/21 10:02 Dose: 0.5 mg Documented by: Magnesium Hydroxide (Milk Of Magnesia 30 Ml Oral.Susp) 30 ml PO DAILY PRN PRN Reason: Constipation Last Admin: 10/15/21 12:58 Dose: 30 ml Documented by: Melatonin (Melatonin 3 Mg Tablet) 3 mg PO BEDTIME PRN PRN Reason: CONTINUED insomnia Last Admin: 10/19/21 00:14 Dose: 3 mg Documented by: Melatonin (Melatonin 3 Mg Tablet) 3 mg PO BEDTIME SARABJIT Last Admin: 10/18/21 20:58 Dose: Not Given Documented by: Pharmacy Consult (Consult Rx Perform Med Rec) 1 each MISCELLANE ONCE PRN PRN Reason: Consult order Polyethylene Glycol (Polyethylene Glycol 3350 17 Gm Powd.Pack) 17 gm PO BID PRN PRN Reason: Constipation Last Admin: 10/19/21 08:31 Dose: 17 gm Documented by: Trazodone HCl (Trazodone Hcl 50 Mg Tablet) 50 mg PO BEDTIME PRN PRN Reason: Insomnia Last Admin: 10/10/21 01:55 Dose: 50 mg Documented by: Allergies Allergies Allergy/AdvReac Type Severity Reaction Status Date / Time cashew nut Allergy Severe ANAPHYLAXIS Verified 10/04/21 19:44 peanut [Peanut] Allergy Severe ANAPHALAXIS Verified 10/04/21 19:44 Assessment & Plan Assessment & Plan (1) Paranoid: Status: Acute Code(s): F22 - Delusional disorders Assessment and Plan: believes food and medicine are poisoned and that the [facility] police are controlling her due to her refusal to work with them (2) Delusional disorder: Status: Acute Code(s): F22 - Delusional disorders Plan IMPRESSION: Patient is a 61-year-old female with history of Delusional disorder (r/o schizophrenia), on a community Marquis and with her brother as guardian, who presents via EMS following a wellness check by [facility] staff and police who found patient's apartment in a disheveled state and patient with paranoid delusions that her food was poisoned, there were bombs in the toilet and that [facility] staff was a part of the [place] secret police who were planning her demise, in the face of going off her? Prolixin Decanoate this past December.? On admission she denied any SI, HI, AVH or any delusional thinking; she also denied that any of the reported events or findings from [facility]'s wellness check were true and denied that she has a mental illness.? Patient refused to sign in and was on a 12 B.? Patient was willing to take Prolixin p.o. She lacks all insight. HOSPITAL COURSE: Patient continues to lack all insight and has become verbally aggressive physically posturing with menacing affect, intruding into staff's personal space, verbally harassing staff and making it difficult for staff to carry out work on the unit.? Patient's behaviors have become unsafe; she refuses to increase p.o. Prolixin and for staff and milieu safety will order Prolixin Decanoate 25 mg IM which is on her Marquis and which her guardian says patient needs and agrees she should get. -signed CV after talking with guardian; also agreed with Prolixin Decanoate -patient superficially polite but easily triggered and intense anger; remains with paranoid, persecutory delusions and some grandiosity 09/30 patient remains superficially polite; guarded.? She has not been challenging staff.? Patient reports she is tired but denies any symptoms; agrees to increasing Prolixin p.o. (which is on Marquis and cannot be refused) -Prolixin 25 mg decanoate is roughly equivalent to getting Prolixin 20 mg p.o. daily; additionally p.o. doses are overlapped for several weeks after restarting Decanoate.? Patient gets Decanoate every 2 weeks and literature typically uses q. 3 weeks for conversion so will titrate p.o. Prolixin to about 15 mg daily.? Discussed with patient who agrees 10/02 remains superficially polite; is guarded and continues to have paranoid, persecutory delusions 10/05 remains superficially polite; is guarded and continues to have paranoid, persecutory delusions but lessening a bit in intensity 10/07 remains superficially polite; is guarded; denies all psychiatric symptoms, though intermittently internally preoccupied; pt has denied paranoid, persecutory delusions to global technical writer despite expressing them to others. Patient complains of some visual changes and akathisia which she attributes to restarting Prolixin and says this is very common for her when she restarts it or has a dose increase. Of note, global technical writer does not notice any akathisia, tremor or other EPS symptoms however it's possible that patient may be experiencing a subclinical amount of EPS. 10/09Patient reports akathisia and tardive dyskinesia from the Prolixin. Patient shows global technical writer her mouth which she is moving and says she has some mouth and tongue movements. She c/o restlessness in her legs and is thus walking the hallways. To that end she asks if a.m. dose of Prolixin committee lowered to 2.5 mg to which global technical writer agrees. At this point it is difficult to say if patient is having actual tardive dyskinesia or if she is feigning TD to lower her p.o. Prolixin dose, which her guardian/brother has reported she may do. When looking at her mouth patient is clearly making it move and when distracted, mouth movements observed to by normal; similar observation made regarding akathesia; however it's possible that there could also be involuntarily mouth movent as well. Guardian says she has never had TD in the past. She does not want any additional medications to mitigate this possible side effect. Patient requests p.o. Prolixin to be discontinued and wants to just remain on the Decanoate. Felter Tennis Balls agrees with this plan. While it is customary to overlap p.o. Prolixin with Decanoate, as it can take considerable time for Decanoate to reach steady state, it is however possible for decanoate to still become effective without p.o., though it will likely takes longer. 10/11 says TD and akathesia are significantly improved since dc'ing PO prolixin (none observed). She remains affable but guarded. Pt denies all psychiatric symptoms. She does not want to discuss events that occurred around admission or discuss hx diagnosis which she typically disputes, which makes it difficult to assess progress. Continue to rely on her guardians approximation of patients progress. However, off prolixin PO, patient might need to remain longer on unit; will discuss w/ guardian. 10/19 no change in presentation; no TD or akathisia observed; patient reports some mild intermittent tongue fasciculations but says it is much better. Remains amenable to treatment plan. Given patient's read a since will continue to reach out to guardian to help assess patient's stability PLAN: Patient is on a?[employer] Marquis?extended and in effect until Nov 11, 2021. Patient has a?guardian, her brother Kong Guillaume pt signed CV Q 15 minute checks Will DC 1:1 staff will monitor as patient can get intrusive and interfere with others treatment by trying to disparage staff and whispering delusions) 1. Delusional disorder (not sure if AH; no disorganized behavior noted): -patient on community Marquis and cannot refuse Prolixin -will remain for 3rd installment of Prolixin Dec -MEDS: Prolixin Dec 25mg IM on 10/12/21 (last dose of Prolixin Decanoate 25 mg IM received on 09/27/21) -DC'd PO Prolixin due to c/o TD and akathesia (dc'd on 10/10); typically, overalap Prolixin PO with Decanoate? (Decanoate 25 mg Q 2/3 weeks is roughly equivalent to Prolixin p.o. 15-20 mg daily Prolixin Dec is listed on her Marquis (CANNOT REFUSE), reviewed by global technical writer and specified by her guardian (literature reports decanoate q. 3 weeks or longer has been as effective as q.2 weeks which is something patient can discuss with outpatient provider but is something that may reduce side-effects and thus increase adherence) I spent minutes with the patient and/or on the patient floor today, greater than?50% of which was spent counseling/coordinating care. Reason for contiued inpatient stay Substantial Risk for: rapid decompensation
[2021-10-20] MEDS: Melatonin 3 MG TABLET PO ×4 (00:15→20:40)
[2021-10-20] MEDS: polyethylene glycoL 3350 17 GM POWD.PACK PO (08:37)
--- NOTE | 2021-10-20 17:03 | HO.PSYCHPN ---
Subjective Subjective Date of Service: 10/20/21 Reason For Visit: SECTION 12, THOUGHTS TO HARM OTHERS Interim History: Patient reports frustrating TD and restlessness. Yesterday patient said it had been minimal for several days however she reports the last night she had much trouble sleeping due to feeling her legs are restless and today she demonstrates that she has a hard time sitting still. Nurse First Aid administered AIMS test: 10 Patient says that she is had the same symptoms for the past 5 years on Prolixin which have been about this level of intensity (patient has given some conflicting reports regarding his history and the week prior patient said that her history only included TD/akathisia at the initiation or restarting of Prolixin but that it eventually resolved on its own). Patient listed the medications she has tried that were either ineffective, caused weight gain or also cause TD. She does not want any medication to ameliorate the symptoms including Ingrezza or propranolol, saying she rather tolerate these symptoms than have to take another medication. Nurse First Aid said he would discuss this with her brother/guardian. However patient agrees to remain on this medication going forward. Patient was a little more willing to discuss some of her other psychiatric history. She reiterated that 7 months ago she was taken off Prolixin. However she was willing to clarify upon further inquiry that what happened was she did not get picked up to be brought to her by monthly long-acting injection and so assumed this meant she was being tapered off Prolixin. She acknowledged that her prescriber never communicated that there was to be any tapering her discontinuation of medication. Patient also was willing to say that she has always disagreed with her diagnosis and has simply felt trapped since she is court ordered to take medications but disagrees with the reasons. She laments losing her life to this situation, but tries to stay abreast of medical issues. Nurse First Aid asked if it was possible to talk more about what she has experienced to which patient said it is overall to upsetting to discuss and she rather not, to which telegraphic typewriter operator accepted. Patient thanked telegraphic typewriter operator for the time spent and actually reached out her hand for handshake, an unusually warm invitation from patient Mental Status Exam Mental Status Exam Narrative: Pt is alert and oriented; behavior is? cooperative and calm, friendly on approach, less guarded today though typically mostly superficial; dressed in casual nightgown, appropriate, adequately groomed and with good hygiene; mood is described as ok and affect congruent; no irritable edge;? eye contact is appropriate; Speech is normal rate, volume and prosody; no psychomotor agitation present; TD and akathesia observed; thought process is organized and goal directed; Thought content expressed is on side-effects, treatment; pt denies any delusional thinking, but is guarded regarding hx; no grandiosity expressed; denies SI/HI or AVH;? Patients insight and judgment impaired but has improved. Diagnostics Vital Signs (24Hr): BMI result Body Mass Index 26.6 Labs Results: 09/22/21 17:48 09/22/21 17:48 Medications Medications Current Medications Acetaminophen (Acetaminophen 325 Mg Tablet) 650 mg PO Q6H PRN PRN Reason: Headache/Pain Mild Scale (1-3) Al Hydroxide/Mg Hydroxide (Magnesium Hydrox/Alum Hydrox 30 Ml Oral.Susp) 30 ml PO Q6H PRN PRN Reason: Heartburn/Nausea Clonazepam (Clonazepam 0.5 Mg Tablet) 0.5 mg PO BEDTIME SARABJIT Clonazepam (Clonazepam 0.5 Mg Tablet) 0.5 mg PO BEDTIME PRN PRN Reason: continued insomnia Fluphenazine Decanoate (Fluphenazine Decanoate 25 Mg/Ml 5 Ml Vial) 25 mg IM Q14D@0900 [facility] Last Admin: 10/12/21 09:24 Dose: 25 mg Documented by: Magnesium Hydroxide (Milk Of Magnesia 30 Ml Oral.Susp) 30 ml PO DAILY PRN PRN Reason: Constipation Last Admin: 10/15/21 12:58 Dose: 30 ml Documented by: Melatonin (Melatonin 3 Mg Tablet) 3 mg PO BEDTIME PRN PRN Reason: CONTINUED insomnia Last Admin: 10/20/21 02:03 Dose: 3 mg Documented by: Melatonin (Melatonin 3 Mg Tablet) 3 mg PO BEDTIME SARABJIT Last Admin: 10/19/21 20:23 Dose: 3 mg Documented by: Pharmacy Consult (Consult Rx Perform Med Rec) 1 each MISCELLANE ONCE PRN PRN Reason: Consult order Polyethylene Glycol (Polyethylene Glycol 3350 17 Gm Powd.Pack) 17 gm PO BID PRN PRN Reason: Constipation Last Admin: 10/20/21 08:37 Dose: 17 gm Documented by: Allergies Allergies Allergy/AdvReac Type Severity Reaction Status Date / Time cashew nut Allergy Severe ANAPHYLAXIS Verified 10/04/21 19:44 peanut [Peanut] Allergy Severe ANAPHALAXIS Verified 10/04/21 19:44 Assessment & Plan Assessment & Plan (1) Paranoid: Status: Acute Code(s): F22 - Delusional disorders Assessment and Plan: believes food and medicine are poisoned and that the [facility] police are controlling her due to her refusal to work with them (2) Delusional disorder: Status: Acute Code(s): F22 - Delusional disorders Plan IMPRESSION: Patient is a 61-year-old female with history of Delusional disorder (r/o schizophrenia), on a community Marquis and with her brother as guardian, who presents via EMS following a wellness check by [facility] staff and police who found patient's apartment in a disheveled state and patient with paranoid delusions that her food was poisoned, there were bombs in the toilet and that [facility] staff was a part of the [facility] secret police who were planning her demise, in the face of going off her? Prolixin Decanoate this past December.? On admission she denied any SI, HI, AVH or any delusional thinking; she also denied that any of the reported events or findings from [facility]'s wellness check were true and denied that she has a mental illness.? Patient refused to sign in and was on a 12 B.? Patient was willing to take Prolixin p.o. She lacks all insight. HOSPITAL COURSE: Patient continues to lack all insight and has become verbally aggressive physically posturing with menacing affect, intruding into staff's personal space, verbally harassing staff and making it difficult for staff to carry out work on the unit.? Patient's behaviors have become unsafe; she refuses to increase p.o. Prolixin and for staff and milieu safety will order Prolixin Decanoate 25 mg IM which is on her Marquis and which her guardian says patient needs and agrees she should get. -signed CV after talking with guardian; also agreed with Prolixin Decanoate -patient superficially polite but easily triggered and intense anger; remains with paranoid, persecutory delusions and some grandiosity 09/30 patient remains superficially polite; guarded.? She has not been challenging staff.? Patient reports she is tired but denies any symptoms; agrees to increasing Prolixin p.o. (which is on Marquis and cannot be refused) -Prolixin 25 mg decanoate is roughly equivalent to getting Prolixin 20 mg p.o. daily; additionally p.o. doses are overlapped for several weeks after restarting Decanoate.? Patient gets Decanoate every 2 weeks and literature typically uses q. 3 weeks for conversion so will titrate p.o. Prolixin to about 15 mg daily.? Discussed with patient who agrees 10/02 remains superficially polite; is guarded and continues to have paranoid, persecutory delusions 10/05 remains superficially polite; is guarded and continues to have paranoid, persecutory delusions but lessening a bit in intensity 10/07 remains superficially polite; is guarded; denies all psychiatric symptoms, though intermittently internally preoccupied; pt has denied paranoid, persecutory delusions to telegraphic typewriter operator despite expressing them to others. Patient complains of some visual changes and akathisia which she attributes to restarting Prolixin and says this is very common for her when she restarts it or has a dose increase. Of note, telegraphic typewriter operator does not notice any akathisia, tremor or other EPS symptoms however it's possible that patient may be experiencing a subclinical amount of EPS. 10/09Patient reports akathisia and tardive dyskinesia from the Prolixin. Patient shows telegraphic typewriter operator her mouth which she is moving and says she has some mouth and tongue movements. She c/o restlessness in her legs and is thus walking the hallways. To that end she asks if a.m. dose of Prolixin committee lowered to 2.5 mg to which telegraphic typewriter operator agrees. At this point it is difficult to say if patient is having actual tardive dyskinesia or if she is feigning TD to lower her p.o. Prolixin dose, which her guardian/brother has reported she may do. When looking at her mouth patient is clearly making it move and when distracted, mouth movements observed to by normal; similar observation made regarding akathesia; however it's possible that there could also be involuntarily mouth movent as well. Guardian says she has never had TD in the past. She does not want any additional medications to mitigate this possible side effect. Patient requests p.o. Prolixin to be discontinued and wants to just remain on the Decanoate. Nurse First Aid agrees with this plan. While it is customary to overlap p.o. Prolixin with Decanoate, as it can take considerable time for Decanoate to reach steady state, it is however possible for decanoate to still become effective without p.o., though it will likely takes longer. 10/11 says TD and akathesia are significantly improved since dc'ing PO prolixin (none observed). She remains affable but guarded. Pt denies all psychiatric symptoms. She does not want to discuss events that occurred around admission or discuss hx diagnosis which she typically disputes, which makes it difficult to assess progress. Continue to rely on her guardians approximation of patients progress. However, off prolixin PO, patient might need to remain longer on unit; will discuss w/ guardian. 10/19 no change in presentation; no TD or akathisia observed; patient reports some mild intermittent tongue fasciculations but says it is much better. Remains amenable to treatment plan. Given patient's read a since will continue to reach out to guardian to help assess patient's stability 10/20Patient reports frustrating TD and restlessness. Yesterday patient said it had been minimal for several days however she reports the last night she had much trouble sleeping due to feeling her legs are restless and today she demonstrates that she has a hard time sitting still. Nurse First Aid administered AIMS test: 10 Patient says that she is had the same symptoms for the past 5 years on Prolixin which have been about this level of intensity (patient has given some conflicting reports regarding his history and the week prior patient said that her history only included TD/akathisia at the initiation or restarting of Prolixin but that it eventually resolved on its own). Nurse First Aid reviewed medication options and listed the medications she has tried or considered reporting they are either ineffective, cause weight gain or also caused TD and does not want to switch meds. She does not want any medication to ameliorate the symptoms including Ingrezza or propranolol, saying she rather tolerate these symptoms than have to take another medication. Nurse First Aid said he would discuss this with her brother/guardian. However patient agrees to remain on this medication going forward. Of note, telegraphic typewriter operator observed tobias TD symptoms during aims test even when distracted by other tasks. TD does wax and wane. PLAN: Patient is on a?community Marquis?extended and in effect until Nov 11, 2021. Patient has a?guardian, her brother Kong Guillaume pt signed CV Q 15 minute checks 1. Delusional disorder (not sure if AH; no disorganized behavior noted): -patient on community Marquis and cannot refuse Prolixin -will remain for 3rd installment of Prolixin Dec -MEDS: Prolixin Dec 25mg IM on 10/12/21 (last dose of Prolixin Decanoate 25 mg IM received on 09/27/21) -DC'd PO Prolixin due to c/o TD and akathesia (dc'd on 10/10); typically, overalap Prolixin PO with Decanoate? (Decanoate 25 mg Q 2/3 weeks is roughly equivalent to Prolixin p.o. 15-20 mg daily Prolixin Dec is listed on her Marquis (CANNOT REFUSE), reviewed by telegraphic typewriter operator and specified by her guardian (literature reports decanoate q. 3 weeks or longer has been as effective as q.2 weeks which is something patient can discuss with outpatient provider but is something that may reduce side-effects and thus increase adherence) -DC'd 1:1 pt not intrusive or interfering with others patients treatment) I spent minutes with the patient and/or on the patient floor today, greater than?50% of which was spent counseling/coordinating care. Reason for contiued inpatient stay Substantial Risk for: rapid decompensation
[2021-10-20 18:00] VITALS: RESP 16
[2021-10-20] MEDS: clonazePAM 0.5 MG TABLET PO ×2 (20:05→20:40)
[2021-10-21] MEDS: Melatonin 3 MG TABLET PO ×3 (04:22→19:18)
--- NOTE | 2021-10-21 04:30 | PC.NURSE ---
PT up at 4:20 am on 10/21/21 asking for repeat Melatonin, this nurse inadvertently choose wrong screen to scan in this medication as it was given as a repeat dose prior to 5AM
[2021-10-21] MEDS: polyethylene glycoL 3350 17 GM POWD.PACK PO (08:43)
--- NOTE | 2021-10-21 10:00 | P.PNPSI_ITS ---
Subjective Subjective Date of Service: 10/21/21 Reason For Visit: SECTION 12, THOUGHTS TO HARM OTHERS Interim History: pt distressed by TD and says asks fiction and nonfiction prose writer to consider taking her off her Prolxin, send her home and see how she does without medication. Pt explained that she's always had TD on prolixin, gained weight, lost teeth, had trouble excising, had hirsuitism, bruxism...but when she went off it 7 months ago, she did well, went shopping, got her hair and nails done, went on vacation (she wanted to but guardian did not approve as she was off her meds) and functioned well, w/out any problems until the police came to her door, woke her up and brought her to the hospital. Pt denies having had any delusional thoughts about [email or web address], not paying bills, not taking care of apartment...she denies paranoid delusions of staff on admission...she said her cousin worked for [employer]) and a few years ago tried to get her to work for them too, but she did not want to...Pt denies any need for medication at all; she insists that she is miserable on it. She said it's my life and she should be allowed to live it off medications. She said if things go badly for her, it's on [her] and that she should be allowed to make her own choice... She again refuses to consider any med changes. She is willing to add Propranolol to bedtime only for help w/ sleep but does not want it during the day. Personnel Generalist Manager agreed to discuss this with her brother. Mental Status Exam Mental Status Exam Narrative: Pt is alert and oriented; behavior is animated, pacing while talking, cooperative but upset; less guarded though typically mostly superficial; dressed in casual nightgown, appropriate, adequately groomed and with good hygiene; mood is described as upset and affect congruent; no irritable edge;? eye contact is appropriate; Speech is normal rate, volume and prosody; some psychomotor agitation present; some TD and akathesia observed; thought process is organized and goal directed; Thought content expressed is on side-effect of treatment; pt denies any delusional thinking, but is guarded and lacks insight regarding hx; some grandiosity expressed; denies SI/HI or AVH;? Patients insight and judgment impaired; improved in sense that she is no longer highly suspicious of staff, but no sense of psychiatric illness. Diagnostics Vital Signs (24Hr): Vital Signs - 24 hr 10/20/21 18:00 Respiratory Rate 16 BMI result Verdana 4 Body Mass Index Verdana 4 26.6 Verdana 4 Verdana 4 Labs Results: 09/22/21 17:48 09/22/21 17:48 Medications Medications Current Medications Acetaminophen (Acetaminophen 325 Mg Tablet) 650 mg PO Q6H PRN PRN Reason: Headache/Pain Mild Scale (1-3) Al Hydroxide/Mg Hydroxide (Magnesium Hydrox/Alum Hydrox 30 Ml Oral.Susp) 30 ml PO Q6H PRN PRN Reason: Heartburn/Nausea Clonazepam (Clonazepam 0.5 Mg Tablet) 0.5 mg PO BEDTIME [facility] Last Admin: 10/20/21 20:05 Dose: 0.5 mg Documented by: Clonazepam (Clonazepam 0.5 Mg Tablet) 0.5 mg PO BEDTIME PRN PRN Reason: continued insomnia Last Admin: 10/20/21 20:40 Dose: 0.5 mg Documented by: Fluphenazine Decanoate (Fluphenazine Decanoate 25 Mg/Ml 5 Ml Vial) 25 mg IM Q14D@0900 [facility] Last Admin: 10/12/21 09:24 Dose: 25 mg Documented by: Magnesium Hydroxide (Milk Of Magnesia 30 Ml Oral.Susp) 30 ml PO DAILY PRN PRN Reason: Constipation Last Admin: 10/15/21 12:58 Dose: 30 ml Documented by: Melatonin (Melatonin 3 Mg Tablet) 3 mg PO BEDTIME PRN PRN Reason: CONTINUED insomnia Last Admin: 10/21/21 04:47 Dose: 3 mg Documented by: Melatonin (Melatonin 3 Mg Tablet) 3 mg PO BEDTIME [facility] Last Admin: 10/21/21 04:22 Dose: 3 mg Documented by: Pharmacy Consult (Consult Rx Perform Med Rec) 1 each MISCELLANE ONCE PRN PRN Reason: Consult order Polyethylene Glycol (Polyethylene Glycol 3350 17 Gm Powd.Pack) 17 gm PO BID PRN PRN Reason: Constipation Last Admin: 10/21/21 08:43 Dose: 17 gm Documented by: Allergies Allergies Allergy/AdvReac Type Severity Reaction Status Date / Time cashew nut Allergy Severe ANAPHYLAXIS Verified 10/04/21 19:44 peanut [Peanut] Allergy Severe ANAPHALAXIS Verified 10/04/21 19:44 Assessment & Plan Assessment & Plan (1) Paranoid: Status: Acute Code(s): F22 - Delusional disorders Assessment and Plan: believes food and medicine are poisoned and that the [facility] police are controlling her due to her refusal to work with them (2) Delusional disorder: Status: Acute Code(s): F22 - Delusional disorders Plan IMPRESSION: Patient is a 61-year-old female with history of Delusional disorder (r/o schizophrenia), on a community Marquis and with her brother as guardian, who presents via EMS following a wellness check by [facility] staff and police who found patient's apartment in a disheveled state and patient with paranoid delusions that her food was poisoned, there were bombs in the toilet and that [facility] staff was a part of the [facility] secret police who were planning her demise, in the face of going off her? Prolixin Decanoate this past December.? On admission she denied any SI, HI, AVH or any delusional thinking; she also denied that any of the reported events or findings from [facility]'s wellness check were true and denied that she has a mental illness.? Patient refused to sign in and was on a 12 B.? Patient was willing to take Prolixin p.o. She lacks all insight. HOSPITAL COURSE: Patient continues to lack all insight and has become verbally aggressive physically posturing with menacing affect, intruding into staff's personal space, verbally harassing staff and making it difficult for staff to carry out work on the unit.? Patient's behaviors have become unsafe; she refuses to incre ase p.o. Prolixin and for staff and milieu safety will order Prolixin Decanoate 25 mg IM which is on her Marquis and which her guardian says patient needs and agrees she should get. -signed CV after talking with guardian; also agreed with Prolixin Decanoate -patient superficially polite but easily triggered and intense anger; remains with paranoid, persecutory delusions and some grandiosity 09/30 patient remains superficially polite; guarded.? She has not been challenging staff.? Patient reports she is tired but denies any symptoms; agrees to increasing Prolixin p.o. (which is on Marquis and cannot be refused) -Prolixin 25 mg decanoate is roughly equivalent to getting Prolixin 20 mg p.o. daily; additionally p.o. doses are overlapped for several weeks after restarting Decanoate.? Patient gets Decanoate every 2 weeks and literature typically uses q. 3 weeks for conversion so will titrate p.o. Prolixin to about 15 mg daily.? Discussed with patient who agrees 10/02 remains superficially polite; is guarded and continues to have paranoid, persecutory delusions 10/05 remains superficially polite; is guarded and continues to have paranoid, persecutory delusions but lessening a bit in intensity 10/07 remains superficially polite; is guarded; denies all psychiatric symptoms, though intermittently internally preoccupied; pt has denied paranoid, persecutory delusions to fiction and nonfiction prose writer despite expressing them to others. Patient complains of some visual changes and akathisia which she attributes to restarting Prolixin and says this is very common for her when she restarts it or has a dose increase. Of note, fiction and nonfiction prose writer does not notice any akathisia, tremor or other EPS symptoms however it's possible that patient may be experiencing a subclinical amount of EPS. 10/09Patient reports akathisia and tardive dyskinesia from the Prolixin. Patient shows fiction and nonfiction prose writer her mouth which she is moving and says she has some mouth and tongue movements. She c/o restlessness in her legs and is thus walking the hallways. To that end she asks if a.m. dose of Prolixin committee lowered to 2.5 mg to which fiction and nonfiction prose writer agrees. At this point it is difficult to say if patient is having actual tardive dyskinesia or if she is feigning TD to lower her p.o. Prolixin dose, which her guardian/brother has reported she may do. When looking at her mouth patient is clearly making it move and when distracted, mouth movements observed to by normal; similar observation made regarding akathesia; however it's possible that there could also be involuntarily mouth movent as well. Guardian says she has never had TD in the past. She does not want any additional medications to mitigate this possible side effect. Patient requests p.o. Prolixin to be discontinued and wants to just remain on the Decanoate. Personnel Generalist Manager agrees with this plan. While it is customary to overlap p.o. Prolixin with Decanoate, as it can take considerable time for Decanoate to reach steady state, it is however possible for decanoate to still become effective without p.o., though it will likely takes longer. 10/11 says TD and akathesia are significantly improved since dc'ing PO prolixin (none observed). She remains affable but guarded. Pt denies all psychiatric symptoms. She does not want to discuss events that occurred around admission or discuss hx diagnosis which she typically disputes, which makes it difficult to assess progress. Continue to rely on her guardians approximation of patients progress. However, off prolixin PO, patient might need to remain longer on unit; will discuss w/ guardian. 10/19 no change in presentation; no TD or akathisia observed; patient reports some mild intermittent tongue fasciculations but says it is much better. Rem ains amenable to treatment plan. Given patient's read a since will continue to reach out to guardian to help assess patient's stability 10/20Patient reports frustrating TD and restlessness. Yesterday patient said it had been minimal for several days however she reports the last night she had much trouble sleeping due to feeling her legs are restless and today she demonstrates that she has a hard time sitting still. Personnel Generalist Manager administered AIMS test: 10 Patient says that she is had the same symptoms for the past 5 years on Prolixin which have been about this level of intensity (patient has given some conflicting reports regarding his history and the week prior patient said that her history only included TD/akathisia at the initiation or restarting of Prolixin but that it eventually resolved on its own). Personnel Generalist Manager reviewed medication options and listed the medications she has tried or considered reporting they are either ineffective, cause weight gain or also caused TD and does not want to switch meds. She does not want any medication to ameliorate the symptoms including Ingrezza or propranolol, saying she rather tolerate these symptoms than have to take another medication. Personnel Generalist Manager said he would discuss this with her brother/guardian. However patient agrees to remain on this medication going forward. Of note, fiction and nonfiction prose writer observed tobias TD symptoms during aims test even when distracted by other tasks. TD does wax and wane. 10/21 no insight; wants off meds due to med side-effect of TD and restlessness. other providers whov'e had her in past remember some mild TD; fiction and nonfiction prose writer and staff speculate some of her symptoms may be exaggerated for effect, but as mentioned she has been observed with symptoms even when periecved to be alone. PLAN: Patient is on a?community Marquis?extended and in effect until Nov 11, 2021. Patient has a?guardian, her brother Kong Guillaume It is writers strong opinion that patient needs to remain on a Marquis order in order for her function in the community; it's also writers strong opinion that she continues to need a guardian as she has no insight into her condition (which is impaired even at baseline) and needs ongoing help in multiple areas in order to function in the community. Will continue Prolxine dec [id number] for now as she is court ordered and needs medication to function. Pt does have some amount of TD and Akathesia, but refuses any meds to help migate symptoms and won't consider alternatives to Prolixin (such as Clozapine which is very low risk for TD, but risk to causes wt gain). Personnel Generalist Manager suggested considering changing DEC to Q3 or Q4 weeks but pt said this was tried in past and continued to have TD. pt signed CV Q 15 minute checks 1. Delusional disorder (not sure if AH; no disorganized behavior noted): -patient on community Marquis and cannot refuse Prolixin -will remain for 3rd installment of Prolixin Dec -Prolixin Dec 25mg IM on 10/12/21 (last dose of Prolixin Decanoate 25 mg IM received on 09/27/21) -Propranolol 10mg qhs for EPS, help with sleep -DC'd PO Prolixin due to c/o TD and akathesia (dc'd on 10/10); typically, overalap Prolixin PO with Decanoate? (Decanoate 25 mg Q 2/3 weeks is roughly equivalent to Prolixin p.o. 15-20 mg daily Prolixin Dec is listed on her Marquis (CANNOT REFUSE), reviewed by fiction and nonfiction prose writer and specified by her guardian (literature reports decanoate q. 3 weeks or longer has been as effective as q.2 weeks which is something patient can discuss with outpatient provider but is something that may reduce side-effects and thus inc rease adherence) -DC'd 1:1 pt not intrusive or interfering with others patients treatment) I spent minutes with the patient and/or on the patient floor today, greater than?50% of which was spent counseling/coordinating care. Reason for contiued inpatient stay Substantial Risk for: inability to function and rapid decompensation
[2021-10-21 19:15] VITALS: BP 150/70; PULSE 80
[2021-10-21] MEDS: Propranolol HCL 10 MG TABLET PO (19:19)
[2021-10-21] MEDS: clonazePAM 0.5 MG TABLET PO ×2 (19:19→19:31)
[2021-10-21] MEDS: Dry Mouth Spray 60 ML SPRAY 1 SPRAY MUCOUS MEM (19:31)
[2021-10-21] MEDS: Acetaminophen 325 MG TABLET 650 MG PO (19:51)
[2021-10-22] MEDS: Acetaminophen 325 MG TABLET 650 MG PO ×3 (04:22→16:46)
[2021-10-22] MEDS: Melatonin 3 MG TABLET PO ×4 (04:22→20:31)
--- NOTE | 2021-10-22 04:59 | PC.NURSE ---
Pt had a (2) 3mg melatonin between 0400 and 0500. System would not allow me to chart them for today as unscheduled and had to put them in towards her next days dose.
[2021-10-22] MEDS: polyethylene glycoL 3350 17 GM POWD.PACK PO (08:55)
[2021-10-22 19:10] VITALS: BP 138/82; PULSE 80; RESP 18; TEMP 37.6; O2SAT 96
[2021-10-22] MEDS: Propranolol HCL 10 MG TABLET PO (19:24)
[2021-10-22] MEDS: clonazePAM 0.5 MG TABLET PO ×2 (19:24)
--- NOTE | 2021-10-22 20:21 | HO.PSYCHPN ---
Subjective Subjective Date of Service: 10/22/21 Reason For Visit: SECTION 12, THOUGHTS TO HARM OTHERS Interim History: Multiple complaints related to her medications. Says she is pacing and feels restless. Says she is slurring speech. Says propranolol makes her tired. Says cogentin caused her to have 2 teeth pulled due to dry mouth. Doesn't believe she needs meds. Says she was fine for months without. Insight limited. Review of Systems Review of Systems no change since transfer from ED. Pt denies any complaints of physical discomfort. Yes Unobtainable due to mental status and Other (Uncooperative) Constitutional: Reports body ache(s) (Denies), Reports chills (Denies), Reports fatigue, Reports headache(s) (Denies) and Reports malaise (Denies) Reports headache(s) (Denies) Cardiovascular: Reports chest pain (Denies) Gastrointestinal: Reports abdominal pain (Denies) Reports headache(s) (Denies) Endocrine: Reports fatigue Mental Status Exam Mental Status Exam Narrative: Pt is alert and oriented; behavior is animated, pacing while talking, cooperative but upset; less guarded though typically mostly superficial; dressed in casual nightgown, appropriate, adequately groomed and with good hygiene; mood is described as upset and affect congruent; no irritable edge;? eye contact is appropriate; Speech is normal rate, volume and prosody; some psychomotor agitation present; some TD and akathesia observed; thought process is organized and goal directed; Thought content expressed is on side-effect of treatment; pt denies any delusional thinking, but is guarded and lacks insight regarding hx; some grandiosity expressed; denies SI/HI or AVH;? Patients insight and judgment impaired; improved in sense that she is no longer highly suspicious of staff, but no sense of psychiatric illness. Patient Appearance: Disheveled and Unkempt Patient Orientation: Person and Situation Level of Consciousness: Awake and Alert Patient Behavior: Guarded, Suspicious, Resistive to Care and Pacing Mood Description: Suspicious, Constricted and Apprehensive Affect Description: Suspicious, Anxious and Apprehensive Patient Cognition Impaired: Yes Ability to Follow Directions: Good Speech Pattern: Clear Diagnostics Vital Signs (24Hr): Vital Signs - 24 hr 10/22/21 19:10 Temperature 99.6 F Pulse Rate 80 Respiratory Rate 18 Blood Pressure 138/82 Pulse Oximetry 96 BMI result Body Mass Index 26.6 Labs Results: 09/22/21 17:48 09/22/21 17:48 Medications Medications Current Medications Acetaminophen (Acetaminophen 325 Mg Tablet) 650 mg PO Q6H PRN PRN Reason: Headache/Pain Mild Scale (1-3) Last Admin: 10/22/21 16:46 Dose: 650 mg Documented by: Al Hydroxide/Mg Hydroxide (Magnesium Hydrox/Alum Hydrox 30 Ml Oral.Susp) 30 ml PO Q6H PRN PRN Reason: Heartburn/Nausea Clonazepam (Clonazepam 0.5 Mg Tablet) 0.5 mg PO BEDTIME [facility] Last Admin: 10/22/21 19:24 Dose: 0.5 mg Documented by: Clonazepam (Clonazepam 0.5 Mg Tablet) 0.5 mg PO BEDTIME PRN PRN Reason: continued insomnia Last Admin: 10/22/21 19:24 Dose: 0.5 mg Documented by: Fluphenazine Decanoate (Fluphenazine Decanoate 25 Mg/Ml 5 Ml Vial) 25 mg IM Q14D@0900 [facility] Last Admin: 10/12/21 09:24 Dose: 25 mg Documented by: Magnesium Hydroxide (Milk Of Magnesia 30 Ml Oral.Susp) 30 ml PO DAILY PRN PRN Reason: Constipation Last Admin: 10/15/21 12:58 Dose: 30 ml Documented by: Melatonin (Melatonin 3 Mg Tablet) 3 mg PO BEDTIME PRN PRN Reason: CONTINUED insomnia Last Admin: 10/22/21 04:57 Dose: 3 mg Documented by: Melatonin (Melatonin 3 Mg Tablet) 3 mg PO BEDTIME [facility] Last Admin: 10/22/21 19:24 Dose: 3 mg Documented by: Pharmacy Consult (Consult Rx Perform Med Rec) 1 each MISCELLANE ONCE PRN PRN Reason: Consult order Polyethylene Glycol (Polyethylene Glycol 3350 17 Gm Powd.Pack) 17 gm PO BID PRN PRN Reason: Constipation Last Admin: 10/22/21 08:55 Dose: 17 gm Documented by: Propranolol HCl (Propranolol Hcl 10 Mg Tablet) 10 mg PO BEDTIME SARABJIT; Protocol Last Admin: 10/22/21 19:24 Dose: 10 mg Documented by: Saliva Substitute (Dry Mouth Largo 60 Ml Largo) 1 spray MUCOUS MEM Q2H PRN PRN Reason: Dry Mouth Last Admin: 10/21/21 19:31 Dose: 1 spray Documented by: Allergies Allergies Allergy/AdvReac Type Severity Reaction Status Date / Time cashew nut Allergy Severe ANAPHYLAXIS Verified 10/04/21 19:44 peanut [Peanut] Allergy Severe ANAPHALAXIS Verified 10/04/21 19:44 Assessment & Plan Assessment & Plan (1) Paranoid: Status: Acute Code(s): F22 - Delusional disorders Assessment and Plan: believes food and medicine are poisoned and that the [facility] police are controlling her due to her refusal to work with them (2) Delusional disorder: Status: Acute Code(s): F22 - Delusional disorders Plan IMPRESSION: Patient is a 61-year-old female with history of Delusional disorder (r/o schizophrenia), on a community Marquis and with her brother as guardian, who presents via EMS following a wellness check by [facility] staff and police who found patient's apartment in a disheveled state and patient with paranoid delusions that her food was poisoned, there were bombs in the toilet and that [facility] staff was a part of the [place] police who were planning her demise, in the face of going off her? Prolixin Decanoate this past December.? On admission she denied any SI, HI, AVH or any delusional thinking; she also denied that any of the reported events or findings from [facility]'s wellness check were true and denied that she has a mental illness.? Patient refused to sign in and was on a 12 B.? Patient was willing to take Prolixin p.o. She lacks all insight. HOSPITAL COURSE: Patient continues to lack all insight and has become verbally aggressive physically posturing with menacing affect, intruding into staff's personal space, verbally harassing staff and making it difficult for staff to carry out work on the unit.? Patient's behaviors have become unsafe; she refuses to increase p.o. Prolixin and for staff and milieu safety will order Prolixin Decanoate 25 mg IM which is on her Marquis and which her guardian says patient needs and agrees she should get. -signed CV after talking with guardian; also agreed with Prolixin Decanoate -patient superficially polite but easily triggered and intense anger; remains with paranoid, persecutory delusions and some grandiosity 09/30 patient remains superficially polite; guarded.? She has not been challenging staff.? Patient reports she is tired but denies any symptoms; agrees to increasing Prolixin p.o. (which is on Marquis and cannot be refused) -Prolixin 25 mg decanoate is roughly equivalent to getting Prolixin 20 mg p.o. daily; additionally p.o. doses are overlapped for several weeks after restarting Decanoate.? Patient gets Decanoate every 2 weeks and literature typically uses q. 3 weeks for conversion so will titrate p.o. Prolixin to about 15 mg daily.? Discussed with patient who agrees 10/02 remains superficially polite; is guarded and continues to have paranoid, persecutory delusions 10/05 remains superficially polite; is guarded and continues to have paranoid, persecutory delusions but lessening a bit in intensity 10/07 remains superficially polite; is guarded; denies all psychiatric symptoms, though intermittently internally preoccupied; pt has denied paranoid, persecutory delusions to underwriter solicitation director despite expressing them to others. Patient complains of some visual changes and akathisia which she attributes to restarting Prolixin and says this is very common for her when she restarts it or has a dose increase. Of note, underwriter solicitation director does not notice any akathisia, tremor or other EPS symptoms however it's possible that patient may be experiencing a subclinical amount of EPS. 10/09Patient reports akathisia and tardive dyskinesia from the Prolixin. Patient shows underwriter solicitation director her mouth which she is moving and says she has some mouth and tongue movements. She c/o restlessness in her legs and is thus walking the hallways. To that end she asks if a.m. dose of Prolixin committee lowered to 2.5 mg to which underwriter solicitation director agrees. At this point it is difficult to say if patient is having actual tardive dyskinesia or if she is feigning TD to lower her p.o. Prolixin dose, which her guardian/brother has reported she may do. When looking at her mouth patient is clearly making it move and when distracted, mouth movements observed to by normal; similar observation made regarding akathesia; however it's possible that there could also be involuntarily mouth movent as well. Guardian says she has never had TD in the past. She does not want any additional medications to mitigate this possible side effect. Patient requests p.o. Prolixin to be discontinued and wants to just remain on the Decanoate. Institution Librarian agrees with this plan. While it is customary to overlap p.o. Prolixin with Decanoate, as it can take considerable time for Decanoate to reach steady state, it is however possible for decanoate to still become effective without p.o., though it will likely takes longer. 10/11 says TD and akathesia are significantly improved since dc'ing PO prolixin (none observed). She remains affable but guarded. Pt denies all psychiatric symptoms. She does not want to discuss events that occurred around admission or discuss hx diagnosis which she typically disputes, which makes it difficult to assess progress. Continue to rely on her guardians approximation of patients progress. However, off prolixin PO, patient might need to remain longer on unit; will discuss w/ guardian. 10/19 no change in presentation; no TD or akathisia observed; patient reports some mild intermittent tongue fasciculations but says it is much better. Remains amenable to treatment plan. Given patient's read a since will continue to reach out to guardian to help assess patient's stability 10/20Patient reports frustrating TD and restlessness. Yesterday patient said it had been minimal for several days however she reports the last night she had much trouble sleeping due to feeling her legs are restless and today she demonstrates that she has a hard time sitting still. Institution Librarian administered AIMS test: 10 Patient says that she is had the same symptoms for the past 5 years on Prolixin which have been about this level of intensity (patient has given some conflicting reports regarding his history and the week prior patient said that her history only included TD/akathisia at the initiation or restarting of Prolixin but that it eventually resolved on its own). Institution Librarian reviewed medication options and listed the medications she has tried or considered reporting they are either ineffective, cause weight gain or also caused TD and does not want to switch meds. She does not want any medication to ameliorate the symptoms including Ingrezza or propranolol, saying she rather tolerate these symptoms than have to take another medication. Institution Librarian said he would discuss this with her brother/guardian. However patient agrees to remain on this medication going forward. Of note, underwriter solicitation director observed tobias TD symptoms during aims test even when distracted by other tasks. TD does wax and wane. 10/21 no insight; wants off meds due to med side-effect of TD and restlessness. other providers whov'e had her in past remember some mild TD; underwriter solicitation director and staff speculate some of her symptoms may be exaggerated for effect, but as mentioned she has been observed with symptoms even when periecved to be alone. PLAN: Patient is on a?community Marquis?extended and in effect until Nov 11, 2021. Patient has a?guardian, her brother Kong Guillaume It is writers strong opinion that patient needs to remain on a Marquis order in order for her function in the community; it's also writers strong opinion that she continues to need a guardian as she has no insight into her condition (which is impaired even at baseline) and needs ongoing help in multiple areas in order to function in the community. Will continue Prolxine dec [id number] for now as she is court ordered and needs medication to function. Pt does have some amount of TD and Akathesia, but refuses any meds to help migate symptoms and won't consider alternatives to Prolixin (such as Clozapine which is very low risk for TD, but risk to causes wt gain). Institution Librarian suggested considering changing DEC to Q3 or Q4 weeks but pt said this was tried in past and continued to have TD. pt signed CV Q 15 minute checks 1. Delusional disorder (not sure if AH; no disorganized behavior noted): -patient on community Marquis and cannot refuse Prolixin -will remain for 3rd installment of Prolixin Dec -Prolixin Dec 25mg IM on 10/12/21 (last dose of Prolixin Decanoate 25 mg IM received on 09/27/21) -Propranolol 10mg qhs for EPS, help with sleep -DC'd PO Prolixin due to c/o TD and akathesia (dc'd on 10/10); typically, overalap Prolixin PO with Decanoate? (Decanoate 25 mg Q 2/3 weeks is roughly equivalent to Prolixin p.o. 15-20 mg daily Prolixin Dec is listed on her Marquis (CANNOT REFUSE), reviewed by underwriter solicitation director and specified by her guardian (literature reports decanoate q. 3 weeks or longer has been as effective as q.2 weeks which is something patient can discuss with outpatient provider but is something that may reduce side-effects and thus increase adherence) -DC'd 1:1 pt not intrusive or interfering with others patients treatment) I spent minutes with the patient and/or on the patient floor today, greater than?50% of which was spent counseling/coordinating care. Reason for contiued inpatient stay Substantial Risk for: inability to function and rapid decompensation
[2021-10-23] MEDS: Acetaminophen 325 MG TABLET 650 MG PO ×3 (04:43→17:20)
[2021-10-23] MEDS: polyethylene glycoL 3350 17 GM POWD.PACK PO (08:49)
[2021-10-23 18:00] VITALS: BP 158/86; PULSE 99; RESP 16; TEMP 37; O2SAT 98
[2021-10-23] MEDS: Melatonin 3 MG TABLET PO ×4 (19:44→22:34)
[2021-10-23] MEDS: Propranolol HCL 10 MG TABLET PO (19:45)
[2021-10-23] MEDS: clonazePAM 0.5 MG TABLET PO ×2 (19:45)
--- NOTE | 2021-10-23 23:32 | P.PNPSI_ITS ---
Subjective Subjective Date of Service: 10/23/21 Reason For Visit: SECTION 12, THOUGHTS TO HARM OTHERS Interim History: Multiple complaints related to her medications. Says she is pacing and feels restless. Says she is slurring speech. Says propranolol makes her tired. Says cogentin caused her to have 2 teeth pulled due to dry mouth. Doesn't believe she needs meds. Says she was fine for months without. Although admits her primary pswychiatrist is nice, she reports she still has doubts he's a physician because he didn't show her his [place] medical license. Insight limited. Review of Systems Review of Systems no change since transfer from ED. Pt denies any complaints of physical discomfort. Yes Unobtainable due to mental status and Other (Uncooperative) Constitutional: Reports body ache(s) (Denies), Reports chills (Denies), Reports fatigue, Reports headache(s) (Denies) and Reports malaise (Denies) Reports headache(s) (Denies) Cardiovascular: Reports chest pain (Denies) Gastrointestinal: Reports abdominal pain (Denies) Reports headache(s) (Denies) Endocrine: Reports fatigue Mental Status Exam Mental Status Exam Narrative: Pt is alert and oriented; behavior is animated, pacing while talking, cooperat jcarlos but upset; less guarded though typically mostly superficial; dressed in casual nightgown, appropriate, adequately groomed and with good hygiene; mood is described as upset and affect congruent; no irritable edge;? eye contact is appropriate; Speech is normal rate, volume and prosody; some psychomotor agitation present; some TD and akathesia observed; thought process is organized and goal directed; Thought content expressed is on side-effect of treatment; pt denies any delusional thinking, but is guarded and lacks insight regarding hx; some grandiosity expressed; denies SI/HI or AVH;? Patients insight and judgment impaired; improved in sense that she is no longer highly suspicious of staff, but no sense of psychiatric illness. Patient Appearance: Disheveled and Unkempt Patient Orientation: Person and Situation Level of Consciousness: Awake and Alert Patient Behavior: Guarded, Suspicious, Resistive to Care and Pacing Mood Description: Suspicious, Constricted and Apprehensive Affect Description: Suspicious, Anxious and Apprehensive Patient Cognition Impaired: Yes Ability to Follow Directions: Good Speech Pattern: Clear Diagnostics Vital Signs (24Hr): Vital Signs - 24 hr 10/23/21 18:00 Temperature 98.6 F Pulse Rate 99 Respiratory Rate 16 Blood Pressure 158/86 H Pulse Oximetry 98 BMI result Verdana 4 Body Mass Index Verdana 4 26.6 Verdana 4 Verdana 4 Labs Results: 09/22/21 17:48 09/22/21 17:48 Medications Medications Current Medications Acetaminophen (Acetaminophen 325 Mg Tablet) 650 mg PO Q6H PRN PRN Reason: Headache/Pain Mild Scale (1-3) Last Admin: 10/23/21 17:20 Dose: 650 mg Documented by: Al Hydroxide/Mg Hydroxide (Magnesium Hydrox/Alum Hydrox 30 Ml Oral.Susp) 30 ml PO Q6H PRN PRN Reason: Heartburn/Nausea Clonazepam (Clonazepam 0.5 Mg Tablet) 0.5 mg PO BEDTIME SARABJIT Last Admin: 10/23/21 19:45 Dose: 0.5 mg Documented by: Clonazepam (Clonazepam 0.5 Mg Tablet) 0.5 mg PO BEDTIME PRN PRN Reason: continued insomnia Last Admin: 10/23/21 19:45 Dose: 0.5 mg Documented by: Fluphenazine Decanoate (Fluphenazine Decanoate 25 Mg/Ml 5 Ml Vial) 25 mg IM Q14D@0900 SARABJIT Last Admin: 10/12/21 09:24 Dose: 25 mg Documented by: Magnesium Hydroxide (Milk Of Magnesia 30 Ml Oral.Susp) 30 ml PO DAILY PRN PRN Reason: Constipation Last Admin: 10/15/21 12:58 Dose: 30 ml Documented by: Melatonin (Melatonin 3 Mg Tablet) 3 mg PO BEDTIME PRN PRN Reason: CONTINUED insomnia Last Admin: 10/23/21 22:34 Dose: 3 mg Documented by: Melatonin (Melatonin 3 Mg Tablet) 3 mg PO BEDTIME SARABJIT Last Admin: 10/23/21 22:30 Dose: 3 mg Documented by: Pharmacy Consult (Consult Rx Perform Med Rec) 1 each MISCELLANE ONCE PRN PRN Reason: Consult order Polyethylene Glycol (Polyethylene Glycol 3350 17 Gm Powd.Pack) 17 gm PO BID PRN PRN Reason: Constipation Last Admin: 10/23/21 08:49 Dose: 17 gm Documented by: Propranolol HCl (Propranolol Hcl 10 Mg Tablet) 10 mg PO BEDTIME SARABJIT; Protocol Last Admin: 10/23/21 19:45 Dose: 10 mg Documented by: Saliva Substitute (Dry Mouth [place] 60 Ml [place]) 1 spray MUCOUS MEM Q2H PRN PRN Reason: Dry Mouth Last Admin: 10/21/21 19:31 Dose: 1 spray Documented by: Allergies Allergies Allergy/AdvReac Type Severity Reaction Status Date / Time cashew nut Allergy Severe ANAPHYLAXIS Verified 10/04/21 19:44 peanut [Peanut] Allergy Severe ANAPHALAXIS Verified 10/04/21 19:44 Assessment & Plan Assessment & Plan (1) Paranoid: Status: Acute Code(s): F22 - Delusional disorders Assessment and Plan: believes food and medicine are poisoned and that the [facility] police are controlling her due to her refusal to work with them (2) Delusional disorder: Status: Acute Code(s): F22 - Delusional disorders Plan IMPRESSION: Patient is a 61-year-old female with history of Delusional disorder (r/o schizophrenia), on a community Marquis and with her brother as guardian, who presents via EMS following a wellness check by [facility] staff and police who found patient's apartment in a disheveled state and patient with paranoid delusions that her food was poisoned, there were bombs in the toilet and that [facility] staff was a part of the [place] secret police who were planning her demise, in the face of going off her? Prolixin Decanoate this past December.? On admission she denied any SI, HI, AVH or any delusional thinking; she also denied that any of the reported events or findings from [facility]'s wellness check were true and denied that she has a mental illness.? Patient refused to sign in and was on a 12 B.? Patient was willing to take Prolixin p.o. She lacks all insight. HOSPITAL COURSE: Patient continues to lack all insight and has become verbally aggressive physically posturing with menacing affect, intruding into staff's personal space, verbally harassing staff and making it difficult for staff to carry out work on the unit.? Patient's behaviors have become unsafe; she refuses to increase p.o. Prolixin and for staff and milieu safety will order Prolixin Decanoate 25 mg IM which is on her Marquis and which her guardian says patient needs and agrees she should get. -signed CV after talking with guardian; also agreed with Prolixin Decanoate -patient superficially polite but easily triggered and intense anger; remains with paranoid, persecutory delusions and some grandiosity 09/30 patient remains superficially polite; guarded.? She has not been challenging staff.? Patient reports she is tired but denies any symptoms; agrees to increasing Prolixin p.o. (which is on Marquis and cannot be refused) -Prolixin 25 mg decanoate is roughly equivalent to getting Prolixin 20 mg p.o. daily; additionally p.o. doses are overlapped for several weeks after restarting Decanoate.? Patient gets Decanoate every 2 weeks and literature typically uses q. 3 weeks for conversion so will titrate p.o. Prolixin to about 15 mg daily.? Discussed with patient who agrees 10/02 remains superficially polite; is guarded and continues to have paranoid, persecutory delusions 10/05 remains superficially polite; is guarded and continues to have paranoid, persecutory delusions but lessening a bit in intensity 10/07 remains superficially polite; is guarded; denies all psychiatric symptoms, though intermittently internally preoccupied; pt has denied paranoid, persecutory delusions to typewriter repairer despite expressing them to others. Patient complains of some visual changes and akathisia which she attributes to restarting Prolixin and says this is very common for her when she restarts it or has a dose increase. Of note, typewriter repairer does not notice any akathisia, tremor or other EPS symptoms however it's possible that patient may be experiencing a subclinical amount of EPS. 10/09Patient reports akathisia and tardive dyskinesia from the Prolixin. Patient shows typewriter repairer her mouth which she is moving and says she has some mouth and tongue movements. She c/o restlessness in her legs and is thus walking the hallways. To that end she asks if a.m. dose of Prolixin committee lowered to 2.5 mg to which typewriter repairer agrees. At this point it is difficult to say if patient is having actual tardive dyskinesia or if she is feigning TD to lower her p.o. Prolixin dose, which her guardian/brother has reported she may do. When looking at her mouth patient is clearly making it move and when distracted, mouth movements observed to by normal; similar observation made regarding akathesia; however it's possible that there could also be involuntarily mouth movent as well. Guardian says she has never had TD in the past. She does not want any additional medications to mitigate this possible side effect. Patient requests p.o. Prolixin to be discontinued and wants to just remain on the Decanoate. Curatorial Specialist agrees with this plan. While it is customary to overlap p.o. Prolixin with Decanoate, as it can take considerable time for Decanoate to reach steady state, it is however possible for decanoate to still become effective without p.o., though it will likely takes longer. 10/11 says TD and akathesia are significantly improved since dc'ing PO prolixin (none observed). She remains affable but guarded. Pt denies all psychiatric symptoms. She does not want to discuss events that occurred around admission or discuss hx diagnosis which she typically disputes, which makes it difficult to assess progress. Continue to rely on her guardians approximation of patients progress. However, off prolixin PO, patient might need to remain longer on unit; will discuss w/ guardian. 10/19 no change in presentation; no TD or akathisia observed; patient reports some mild intermittent tongue fasciculations but says it is much better. Remains amenable to treatment plan. Given patient's read a since will continue to reach out to guardian to help assess patient's stability 10/20Patient reports frustrating TD and restlessness. Yesterday patient said it had been minimal for several days however she reports the last night she had much trouble sleeping due to feeling her legs are restless and today she demonstrates that she has a hard time sitting still. Curatorial Specialist administered AIMS test: 10 Patient says that she is had the same symptoms for the past 5 years on Prolixin which have been about this level of intensity (patient has given some conflicting reports regarding his history and the week prior patient said that her history only included TD/akathisia at the initiation or restarting of Prolixin but that it eventually resolved on its own). Curatorial Specialist reviewed medication options and listed the medications she has tried or considered reporting they are either ineffective, cause weight gain or also caused TD and does not want to switch meds. She does not want any medication to ameliorate the symptoms including Ingrezza or propranolol, saying she rather tolerate these symptoms than have to take another medication. Curatorial Specialist said he would discuss this with her brother/guardian. However patient agrees to remain on this medication going forward. Of note, typewriter repairer observed tobias TD symptoms during aims test even when distracted by other tasks. TD does wax and wane. 10/21 no insight; wants off meds due to med side-effect of TD and restlessness. other providers whov'e had her in past remember some mild TD; typewriter repairer and staff speculate some of her symptoms may be exaggerated for effect, but as mentioned she has been observed with symptoms even when periecved to be alone. PLAN: Patient is on a?community Marquis?extended and in effect until Nov 11, 2021. Patient has a?guardian, her brother Kong Guillaume It is writers strong opinion that patient needs to remain on a Marquis order in order for her function in the community; it's also writers strong opinion that she continues to need a guardian as she has no insight into her condition (which is impaired even at baseline) and needs ongoing help in multiple areas in order to function in the community. Will continue Prolxine dec w3xwife for now as she is court ordered and needs medication to function. Pt does have some amount of TD and Akathesia, but refuses any meds to help migate symptoms and won't consider alternatives to Prolixin (such as Clozapine which is very low risk for TD, but risk to causes wt gain). Curatorial Specialist suggested considering changing DEC to Q3 or Q4 weeks but pt said this was tried in past and continued to have TD. pt signed CV Q 15 minute checks 1. Delusional disorder (not sure if AH; no disorganized behavior noted): -patient on community Marquis and cannot refuse Prolixin -will remain for 3rd installment of Prolixin Dec -Prolixin Dec 25mg IM on 10/12/21 (last dose of Prolixin Decanoate 25 mg IM received on 09/27/21) -Propranolol 10mg qhs for EPS, help with sleep -DC'd PO Prolixin due to c/o TD and akathesia (dc'd on 10/10); typically, overalap Prolixin PO with Decanoate? (Decanoate 25 mg Q 2/3 weeks is roughly equivalent to Prolixin p.o. 15-20 mg daily Prolixin Dec is listed on her Marquis (CANNOT REFUSE), reviewed by typewriter repairer and specified by her guardian (literature reports decanoate q. 3 weeks or longer has been as effective as q.2 weeks which is something patient can discuss with outpatient provider but is something that may reduce side-effects and thus increase adherence) -DC'd 1:1 pt not intrusive or interfering with others patients treatment) I spent minutes with the patient and/or on the patient floor today, greater than?50% of which was spent counseling/coordinating care. Reason for contiued inpatient stay Substantial Risk for: harm to self and inability to function
[2021-10-24] MEDS: Melatonin 3 MG TABLET PO ×2 (00:02→21:34)
[2021-10-24] MEDS: polyethylene glycoL 3350 17 GM POWD.PACK PO (08:34)
[2021-10-24] MEDS: Acetaminophen 325 MG TABLET 650 MG PO ×2 (08:34→14:48)
--- NOTE | 2021-10-24 10:20 | HO.PSYCHPN ---
Subjective Subjective Date of Service: 10/24/21 Reason For Visit: SECTION 12, THOUGHTS TO HARM OTHERS Interim History: Patient reported that she is sleeping better having been started on propranolol at bedtime. She apologized to communications writer for her behavior early on in admission and said that it was mostly because she was angry having been removed from her home and force to be on the unit. She said that she felt communications writer was a nice doctor. Patient remains focused on medication side effects saying that she is feeling drowsy, sluggish, that her speech is slowed and she would like to have a chance to be off medications indefinitely and live her life regardless of the consequences. Humanities And Languages Professor discussed with patient how her perspective conflicts with nearly everyone involved in her life/treatment who find that patient requires medications to function in the community and that without medication she gets floridly delusional. Patient continues to deny this is the case and says she never wants to hurt herself or anybody else. Patient reiterates that she had decent life for the 7 months off or her medications saying that even though [facility] he said she could not go on vacation, it was paid for and she went anyway; she said that off medication she played tennis, drove her car, got her hair done and enjoyed her life. She asked communications writer to discuss this with her guardian to which communications writer agrees Mental Status Exam Mental Status Exam Narrative: Pt is alert and oriented; behavior calm, cooperative; less guarded, more willing to talk about herself; dressed in casual nightgown, appropriate, adequately groomed and with good hygiene; mood is described as miserable and affect congruent;? eye contact is appropriate; intermittently, Speech is slowed rate (normal volume); intermittent psychomotor retardation present; no TD or akathesia observed; thought process is organized and goal directed; Thought content expressed is on side-effect of treatment; pt denies any current or hx of delusional thinking; denies SI/HI or AVH;? Patients insight and judgment impaired; improved in sense that she is no longer highly suspicious of staff, but no sense of psychiatric illness, her history of behaviors or need for medications. Diagnostics Vital Signs (24Hr): Vital Signs - 24 hr 10/23/21 18:00 Temperature 98.6 F Pulse Rate 99 Respiratory Rate 16 Blood Pressure 158/86 H Pulse Oximetry 98 BMI result Body Mass Index 26.6 Labs Results: 09/22/21 17:48 09/22/21 17:48 Medications Medications Current Medications Acetaminophen (Acetaminophen 325 Mg Tablet) 650 mg PO Q6H PRN PRN Reason: Headache/Pain Mild Scale (1-3) Last Admin: 10/24/21 08:34 Dose: 650 mg Documented by: Al Hydroxide/Mg Hydroxide (Magnesium Hydrox/Alum Hydrox 30 Ml Oral.Susp) 30 ml PO Q6H PRN PRN Reason: Heartburn/Nausea Clonazepam (Clonazepam 0.5 Mg Tablet) 0.5 mg PO BEDTIME SARABJIT Last Admin: 10/23/21 19:45 Dose: 0.5 mg Documented by: Clonazepam (Clonazepam 0.5 Mg Tablet) 0.5 mg PO BEDTIME PRN PRN Reason: continued insomnia Last Admin: 10/23/21 19:45 Dose: 0.5 mg Documented by: Fluphenazine Decanoate (Fluphenazine Decanoate 25 Mg/Ml 5 Ml Vial) 25 mg IM Q14D@0900 [facility] Last Admin: 10/12/21 09:24 Dose: 25 mg Documented by: Magnesium Hydroxide (Milk Of Magnesia 30 Ml Oral.Susp) 30 ml PO DAILY PRN PRN Reason: Constipation Last Admin: 10/15/21 12:58 Dose: 30 ml Documented by: Melatonin (Melatonin 3 Mg Tablet) 3 mg PO BEDTIME PRN PRN Reason: CONTINUED insomnia Last Admin: 10/24/21 00:02 Dose: 3 mg Documented by: Melatonin (Melatonin 3 Mg Tablet) 3 mg PO BEDTIME SARABJIT Last Admin: 10/23/21 22:30 Dose: 3 mg Documented by: Pharmacy Consult (Consult Rx Perform Med Rec) 1 each MISCELLANE ONCE PRN PRN Reason: Consult order Polyethylene Glycol (Polyethylene Glycol 3350 17 Gm Powd.Pack) 17 gm PO BID PRN PRN Reason: Constipation Last Admin: 10/24/21 08:34 Dose: 17 gm Documented by: Propranolol HCl (Propranolol Hcl 10 Mg Tablet) 10 mg PO BEDTIME SARABJIT; Protocol Last Admin: 10/23/21 19:45 Dose: 10 mg Documented by: Saliva Substitute (Dry Mouth Saugerties 60 Ml Saugerties) 1 spray MUCOUS MEM Q2H PRN PRN Reason: Dry Mouth Last Admin: 10/21/21 19:31 Dose: 1 spray Documented by: Allergies Allergies Allergy/AdvReac Type Severity Reaction Status Date / Time cashew nut Allergy Severe ANAPHYLAXIS Verified 10/04/21 19:44 peanut [Peanut] Allergy Severe ANAPHALAXIS Verified 10/04/21 19:44 Assessment & Plan Assessment & Plan (1) Paranoid: Status: Acute Code(s): F22 - Delusional disorders Assessment and Plan: believes food and medicine are poisoned and that the [facility] police are controlling her due to her refusal to work with them (2) Delusional disorder: Status: Acute Code(s): F22 - Delusional disorders Plan IMPRESSION: Patient is a 61-year-old female with history of Delusional disorder (r/o schizophrenia), on a community Marquis and with her brother as guardian, who presents via EMS following a wellness check by [facility] staff and police who found patient's apartment in a disheveled state and patient with paranoid delusions that her food was poisoned, there were bombs in the toilet and that [facility] staff was a part of the [facility] secret police who were planning her demise, in the face of going off her? Prolixin Decanoate this past December.? On admission she denied any SI, HI, AVH or any delusional thinking; she also denied that any of the reported events or findings from [facility]'s wellness check were true and denied that she has a mental illness.? Patient refused to sign in and was on a 12 B.? Patient was willing to take Prolixin p.o. She lacks all insight. HOSPITAL COURSE: Patient continues to lack all insight and has become verbally aggressive physically posturing with menacing affect, intruding into staff's personal space, verbally harassing staff and making it difficult for staff to carry out work on the unit.? Patient's behaviors have become unsafe; she refuses to increase p.o. Prolixin and for staff and milieu safety will order Prolixin Decanoate 25 mg IM which is on her Marquis and which her guardian says patient needs and agrees she should get. -signed CV after talking with guardian; also agreed with Prolixin Decanoate -patient superficially polite but easily triggered and intense anger; remains with paranoid, persecutory delusions and some grandiosity 09/30 patient remains superficially polite; guarded.? She has not been challenging staff.? Patient reports she is tired but denies any symptoms; agrees to increasing Prolixin p.o. (which is on Marquis and cannot be refused) -Prolixin 25 mg decanoate is roughly equivalent to getting Prolixin 20 mg p.o. daily; additionally p.o. doses are overlapped for several weeks after restarting Decanoate.? Patient gets Decanoate every 2 weeks and literature typically uses q. 3 weeks for conversion so will titrate p.o. Prolixin to about 15 mg daily.? Discussed with patient who agrees 10/02 remains superficially polite; is guarded and continues to have paranoid, persecutory delusions 10/05 remains superficially polite; is guarded and continues to have paranoid, persecutory delusions but lessening a bit in intensity 10/07 remains superficially polite; is guarded; denies all psychiatric symptoms, though intermittently internally preoccupied; pt has denied paranoid, persecutory delusions to communications writer despite expressing them to others. Patient complains of some visual changes and akathisia which she attributes to restarting Prolixin and says this is very common for her when she restarts it or has a dose increase. Of note, communications writer does not notice any akathisia, tremor or other EPS symptoms however it's possible that patient may be experiencing a subclinical amount of EPS. 10/09Patient reports akathisia and tardive dyskinesia from the Prolixin. Patient shows communications writer her mouth which she is moving and says she has some mouth and tongue movements. She c/o restlessness in her legs and is thus walking the hallways. To that end she asks if a.m. dose of Prolixin committee lowered to 2.5 mg to which communications writer agrees. At this point it is difficult to say if patient is having actual tardive dyskinesia or if she is feigning TD to lower her p.o. Prolixin dose, which her guardian/brother has reported she may do. When looking at her mouth patient is clearly making it move and when distracted, mouth movements observed to by normal; similar observation made regarding akathesia; however it's possible that there could also be involuntarily mouth movent as well. Guardian says she has never had TD in the past. She does not want any additional medications to mitigate this possible side effect. Patient requests p.o. Prolixin to be discontinued and wants to just remain on the Decanoate. Humanities And Languages Professor agrees with this plan. While it is customary to overlap p.o. Prolixin with Decanoate, as it can take considerable time for Decanoate to reach steady state, it is however possible for decanoate to still become effective without p.o., though it will likely takes longer. 10/11 says TD and akathesia are significantly improved since dc'ing PO prolixin (none observed). She remains affable but guarded. Pt denies all psychiatric symptoms. She does not want to discuss events that occurred around admission or discuss hx diagnosis which she typically disputes, which makes it difficult to assess progress. Continue to rely on her guardians approximation of patients progress. However, off prolixin PO, patient might need to remain longer on unit; will discuss w/ guardian. 10/19 no change in presentation; no TD or akathisia observed; patient reports some mild intermittent tongue fasciculations but says it is much better. Remains amenable to treatment plan. Given patient's read a since will continue to reach out to guardian to help assess patient's stability 10/20Patient reports frustrating TD and restlessness. Yesterday patient said it had been minimal for several days however she reports the last night she had much trouble sleeping due to feeling her legs are restless and today she demonstrates that she has a hard time sitting still. Humanities And Languages Professor administered AIMS test: 10 Patient says that she is had the same symptoms for the past 5 years on Prolixin which have been about this level of intensity (patient has given some conflicting reports regarding his history and the week prior patient said that her history only included TD/akathisia at the initiation or restarting of Prolixin but that it eventually resolved on its own). Humanities And Languages Professor reviewed medication options and listed the medications she has tried or considered reporting they are either ineffective, cause weight gain or also caused TD and does not want to switch meds. She does not want any medication to ameliorate the symptoms including Ingrezza or propranolol, saying she rather tolerate these symptoms than have to take another medication. Humanities And Languages Professor said he would discuss this with her brother/guardian. However patient agrees to remain on this medication going forward. Of note, communications writer observed tobias TD symptoms during aims test even when distracted by other tasks. TD does wax and wane. 10/21 no insight; wants off meds due to med side-effect of TD and restlessness. other providers whov'e had her in past remember some mild TD; communications writer and staff speculate some of her symptoms may be exaggerated for effect, but as mentioned she has been observed with symptoms even when perceived to be alone. 10/24 patient reports she is miserable with medication side effects of slowed speech slow, slurred words, feeling drowsy. Today she did not complain of TD or akathisia but the opposite. Of note, patient did have slowed speech when speaking with communications writer and slow movements of her body, however moments earlier when she was talking with high school social science teacher in the hallway she was using normal speech and there was no psychomotor retardation. Again communications writer agrees that there is some amount of TD/akathisia or experience of restlessness and her body however these and other symptoms seem to be exaggerated in order to make a case for getting off Prolixin as the symptoms seem to vacillate between moderate/severe to absent depending on with whom she is speaking. Patient continues to refuse any other medications to ameliorate symptoms; she also refuses to consider any other antipsychotics that may have less side effects. Patient does not have any insight into her history of behaviors or delusions and currently, cannot accurately reflect on whether she ultimately enjoyed her life off medications. Humanities And Languages Professor has discussed this case with 2 other psychiatrists who have known patient over the years and who report that off medications she is floridly psychotic and on medication she has been able to her life at some level. Given this collateral information as well as communications writer's own observations when patient was 1st admitted, it remains communications writer's opinion that off medications and without significant help in the community, including a guardian, she will end up homeless and terrified. -will organized family meeting with high school social science teacher and Kong, her brother/guardian -patient is due for her 3rd installment of Prolixin Decanoate; initially it was hoped she could perhaps discharge soon after she received this 3rd dose. However, given her poor insight, her adamant, persistent request to have medications discontinued, and her guardians report that once she becomes stable, she feels and expresses the need to be on medications, it is communications writer's opinion that if patient were to be discharged at this time she would very quickly decompensate. Will discuss further with guardian. PLAN: Patient is on a?community Marquis?extended and in effect until Nov 11, 2021. Patient has a?guardian, her brother Kong Guillaume It is writers strong opinion that patient needs to remain on a Marquis order in order for her function in the community; it's also writers strong opinion that she continues to need a guardian as she has no insight into her condition (which is impaired even at baseline) and needs ongoing help in multiple areas in order to function in the community. Will continue Prolxine dec [id number] for now as she is court ordered and needs medication to function. Pt does have some amount of TD and Akathesia, but refuses any meds to help migate symptoms and won't consider alternatives to Prolixin (such as Clozapine which is very low risk for TD, but risk to causes wt gain). Humanities And Languages Professor suggested considering changing DEC to Q3 or Q4 weeks but pt said this was tried in past and continued to have TD. pt signed CV Q 15 minute checks 1. Delusional disorder (not sure if AH; no disorganized behavior noted): -patient on community Marquis and cannot refuse Prolixin -will remain for 3rd installment of Prolixin Dec -Prolixin Dec 25mg IM on 10/12/21 (last dose of Prolixin Decanoate 25 mg IM received on 09/27/21) -Propranolol 10mg qhs for EPS, help with sleep -DC'd PO Prolixin due to c/o TD and akathesia (dc'd on 10/10); typically, overalap Prolixin PO with Decanoate? (Decanoate 25 mg Q 2/3 weeks is roughly equivalent to Prolixin p.o. 15-20 mg daily Prolixin Dec is listed on her Marquis (CANNOT REFUSE), reviewed by communications writer and specified by her guardian (literature reports decanoate q. 3 weeks or longer has been as effective as q.2 weeks which is something patient can discuss with outpatient provider but is something that may reduce side-effects and thus increase adherence) -DC'd 1:1 pt not intrusive or interfering with others patients treatment) I spent minutes with the patient and/or on the patient floor today, greater than?50% of which was spent counseling/coordinating care. Reason for contiued inpatient stay Substantial Risk for: inability to function and rapid decompensation
[2021-10-24 18:10] VITALS: BP 152/88; PULSE 69; RESP 16; TEMP 36.7; O2SAT 98
[2021-10-24] MEDS: Propranolol HCL 10 MG TABLET PO (21:34)
[2021-10-24] MEDS: clonazePAM 0.5 MG TABLET PO (21:34)
[2021-10-24 21:35] VITALS: BP 130/70; PULSE 61
[2021-10-25] MEDS: clonazePAM 0.5 MG TABLET PO (01:24)
[2021-10-25] MEDS: Melatonin 3 MG TABLET PO ×3 (01:24→23:05)
[2021-10-25] MEDS: Acetaminophen 325 MG TABLET 650 MG PO ×4 (01:24→22:14)
[2021-10-25] MEDS: polyethylene glycoL 3350 17 GM POWD.PACK PO (08:38)
--- NOTE | 2021-10-25 14:49 | P.PNPSI_ITS ---
Subjective Subjective Date of Service: 10/25/21 Reason For Visit: SECTION 12, THOUGHTS TO HARM OTHERS Interim History: junior underwriter and SW discussed pt's case with guardian who, given patient's current presentation which includes a strong effort to stop taking her medications, saying she does not need them, believes that if she were to be discharged she will not adhere to medications at all and will quickly decompensate, end up homeless and too disorganized. Mixed [employer] Liv[employer] Farm Worker agrees with this assessment. Guardian shared that in the recent past patient told her landlord that she was going to vacate her apartment. She was actually on the verge of being homeless but her guardian found out in time, paid the rent, explained to the landlord and patient remained in her house. Patient was also on the verge of losing her car, not having paid her bills or car insurance; patient does not have the insight to understand this history and denies it. Guardian explained that patient was on Prolixin dec 12.5 Q 2 weeks when she was at [facility] 2011 Prolixin dec 12.5 q3 weeks [facility] 2016 Prolixin dec 25 mg q.2 weeks [facility] 2017 family meeting today with pt's brother/guardian, SW, junior underwriter. Pt shared her concerns about being on this medication and her perceived side effects. Given patient's complaint of TD and restlessness, and her history of having been successful for at least some periods on lower dose, junior underwriter and guardian agreed to lower how Prolixin dec to 17 mg q2 weeks. Patient said that she was happy with this change and hoped it would mitigate some of the side effects. Guardian feels that if something was extended to q. 3 weeks, patient would most likely miss doses and decompensation would repeat Mental Status Exam Mental Status Exam Narrative: Pt is alert and oriented; behavior calm, cooperative; less guarded, more willing to talk about herself; dressed in casual nightgown, appropriate, adequately groomed and with good hygiene; mood is described as miserable and affect congruent;? eye contact is appropriate; intermittently, Speech is slowed rate (normal volume); intermittent psychomotor retardation present; no TD or akathesia observed; thought process is organized and goal directed; Thought content expressed is on side-effect of treatment; pt denies any current or hx of delusional thinking; denies SI/HI or AVH;? Patients insight and judgment impair ed; improved in sense that she is no longer highly suspicious of staff, but no sense of psychiatric illness, her history of behaviors or need for medications. Diagnostics Vital Signs (24Hr): Vital Signs - 24 hr 10/24/21 18:10 10/24/21 21:35 Temperature 98.1 F Pulse Rate 69 61 Respiratory Rate 16 Blood Pressure 152/88 H 130/70 Pulse Oximetry 98 BMI result [place] 4 Body Mass Index [place] 4 26.6 Verd[place] 4 Verdana 4 Labs Results: 09/22/21 17:48 09/22/21 17:48 Medications Medications Current Medications Acetaminophen (Acetaminophen 325 Mg Tablet) 650 mg PO Q6H PRN PRN Reason: Headache/Pain Mild Scale (1-3) Last Admin: 10/25/21 08:37 Dose: 650 mg Documented by: Al Hydroxide/Mg Hydroxide (Magnesium Hydrox/Alum Hydrox 30 Ml Oral.Susp) 30 ml PO Q6H PRN PRN Reason: Heartburn/Nausea Clonazepam (Clonazepam 0.5 Mg Tablet) 0.5 mg PO BEDTIME [facility] Last Admin: 10/24/21 21:34 Dose: 0.5 mg Documented by: Fluphenazine Decanoate (Fluphenazine Decanoate 25 Mg/Ml 5 Ml Vial) 25 mg IM Q14D@0900 [facility] Last Admin: 10/25/21 14:35 Dose: Not Given Documented by: Magnesium Hydroxide (Milk Of Magnesia 30 Ml Oral.Susp) 30 ml PO DAILY PRN PRN Reason: Constipation Last Admin: 10/15/21 12:58 Dose: 30 ml Documented by: Melatonin (Melatonin 3 Mg Tablet) 3 mg PO BEDTIME PRN PRN Reason: CONTINUED insomnia Last Admin: 10/25/21 01:24 Dose: 3 mg Documented by: Melatonin (Melatonin 3 Mg Tablet) 3 mg PO BEDTIME SAR[facility]JIT Last Admin: 10/24/21 21:34 Dose: 3 mg Documented by: Pharmacy Consult (Consult Rx Perform Med Rec) 1 each MISCELLANE ONCE PRN PRN Reason: Consult order Polyethylene Glycol (Polyethylene Glycol 3350 17 Gm Powd.Pack) 17 gm PO BID PRN PRN Reason: Constipation Last Admin: 10/25/21 08:38 Dose: 17 gm Documented by: Propranolol HCl (Propranolol Hcl 10 Mg Tablet) 10 mg PO BEDTIME [facility]; Protocol Last Admin: 10/24/21 21:34 Dose: 10 mg Documented by: Saliva Substitute (Dry Mouth [place] 60 Ml [place]) 1 spray MUCOUS MEM Q2H PRN PRN Reason: Dry Mouth Last Admin: 10/21/21 19:31 Dose: 1 spray Documented by: Allergies Allergies Allergy/AdvReac Type Severity Reaction Status Date / Time cashew nut Allergy Severe ANAPHYLAXIS Verified 10/04/21 19:44 peanut [Peanut] Allergy Severe ANAPHALAXIS Verified 10/04/21 19:44 Assessment & Plan Assessment & Plan (1) Paranoid: Status: Acute Code(s): F22 - Delusional disorders Assessment and Plan: believes food and medicine are poisoned and that the [facility] police are controlling her due to her refusal to work with them (2) Delusional disorder: Status: Acute Code(s): F22 - Delusional disorders Plan IMPRESSION: Patient is a 61-year-old female with history of Delusional disorder (r/o schizop hrenia), on a [employer] Marquis and with her brother as guardian, who presents via EMS following a wellness check by [facility] staff and police who found patient's apartment in a disheveled state and patient with paranoid delusions that her food was poisoned, there were bombs in the toilet and that [facility] staff was a part of the [place] secret police who were planning her demise, in the face of going off her? Prolixin Decanoate this past December.? On admission she denied any SI, HI, AVH or any delusional thinking; she also denied that any of the reported events or findings from [facility]'s wellness check were true and denied that she has a mental illness.? Patient refused to sign in and was on a 12 B.? Patient was willing to take Prolixin p.o. She lacks all insight. HOSPITAL COURSE: Patient continues to lack all insight and has become verbally aggressive physically posturing with menacing affect, intruding into staff's personal space, verbally harassing staff and making it difficult for staff to carry out work on the unit.? Patient's behaviors have become unsafe; she refuses to increase p.o. Prolixin and for staff and milieu safety will order Prolixin Decanoate 25 mg IM which is on her Marquis and which her guardian says patient needs and agrees she should get. -signed CV after talking with guardian; also agreed with Prolixin Decanoate -patient superficially polite but easily triggered and intense anger; remains with paranoid, persecutory delusions and some grandiosity 09/30 patient remains superficially polite; guarded.? She has not been challenging staff.? Patient reports she is tired but denies any symptoms; agrees to increasing Prolixin p.o. (which is on Marquis and cannot be refused) -Prolixin 25 mg decanoate is roughly equivalent to getting Prolixin 20 mg p.o. daily; additionally p.o. doses are overlapped for several weeks after restarting Decanoate.? Patient gets Decanoate every 2 weeks and literature typically uses q. 3 weeks for conversion so will titrate p.o. Prolixin to about 15 mg daily.? Discussed with patient who agrees 10/02 remains superficially polite; is guarded and continues to have paranoid, persecutory delusions 10/05 remains superficially polite; is guarded and continues to have paranoid, persecutory delusions but lessening a bit in intensity 10/07 remains superficially polite; is guarded; denies all psychiatric symptoms, though intermittently internally preoccupied; pt has denied paranoid, persecutory delusions to junior underwriter despite expressing them to others. Patient complains of some visual changes and akathisia which she attributes to restarting Prolixin and says this is very common for her when she restarts it or has a dose increase. Of note, junior underwriter does not notice any akathisia, tremor or other EPS symptoms however it's possible that patient may be experiencing a subclinical amount of EPS. 10/09Patient reports akathisia and tardive dyskinesia from the Prolixin. Patient shows junior underwriter her mouth which she is moving and says she has some mouth and tongue movements. She c/o restlessness in her legs and is thus walking the kramer ways. To that end she asks if a.m. dose of Prolixin committee lowered to 2.5 mg to which junior underwriter agrees. At this point it is difficult to say if patient is having actual tardive dyskinesia or if she is feigning TD to lower her p.o. Prolixin dose, which her guardian/brother has reported she may do. When looking at her mouth patient is clearly making it move and when distracted, mouth movements observed to by normal; similar observation made regarding akathesia; however it's possible that there could also be involuntarily mouth movent as well. Guardian says she has never had TD in the past. She does not want any additional medications to mitigate this possible side effect. Patient requests p.o. Prolixin to be discontinued and wants to just remain on the Decanoate. Mixed [employer] Worker agrees with this plan. While it is customary to overlap p.o. Prolixin with Decanoate, as it can take considerable time for Decanoate to reach steady state, it is however possible for decanoate to still become effective without p.o., though it will likely takes longer. 10/11 says TD and akathesia are significantly improved since dc'ing PO prolixin (none observed). She remains affable but guarded. Pt denies all psychiatric symptoms. She does not want to discuss events that occurred around admission or discuss hx diagnosis which she typically disputes, which makes it difficult to assess progress. Continue to rely on her guardians approximation of patients progress. However, off prolixin PO, patient might need to remain longer on unit; will discuss w/ guardian. 10/19 no change in presentation; no TD or akathisia observed; patient reports some mild intermittent tongue fasciculations but says it is much better. Remains amenable to treatment plan. Given patient's read a since will continue to reach out to guardian to help assess patient's stability 10/20Patient reports frustrating TD and restlessness. Yesterday patient said it had been minimal for several days however she reports the last night she had much trouble sleeping due to feeling her legs are restless and today she demonstrates that she has a hard time sitting still. Mixed [employer] Liv[employer] Farm Worker administered AIMS test: 10 Patient says that she is had the same symptoms for the past 5 years on Prolixin which have been about this level of intensity (patient has given some conflicting reports regarding his history and the week prior patient said that her history only included TD/akathisia at the initiation or restarting of Prolixin but that it eventually resolved on its own). Mixed [employer] Worker reviewed medication options and listed the medications she has tried or considered reporting they are either ineffective, cause weight gain or also caused TD and does not want to switch meds. She does not want any medication to ameliorate the symptoms including Ingrezza or propranolol, saying she rather tolerate these symptoms than have to take another medication. Mixed [employer] Farm Worker said he would discuss this with her brother/guardian. However patient agrees to remain on this medication going forward. Of note, junior underwriter observed tobias TD symptoms during aims test even when distracted by other tasks. TD does wax and wane. 10/21 no insight; wants off meds due to med side-effect of TD and restlessness. other providers whov'e had her in past remember some mild TD; junior underwriter and staff speculate some of her symptoms may be exaggerated for effect, but as mentioned she has been observed with symptoms even when perceived to be alone. 10/24 patient reports she is miserable with medication side effects of slowed speech slow, slurred words, feeling drowsy. Today she did not complain of TD or akathisia but the opposite. Of note, patient did have slowed speech when speaking with junior underwriter and slow movements of her body, however moments earlier when she was talking with geriatric social work professor in the hallway she was using normal speech and there was no psychomotor retardation. Again junior underwriter agrees that there is some amount of TD/akathisia or experience of restlessness and her body howev er these and other symptoms seem to be exaggerated in order to make a case for getting off Prolixin as the symptoms seem to vacillate between moderate/severe to absent depending on with whom she is speaking. Patient continues to refuse any other medications to ameliorate symptoms; she also refuses to consider any other antipsychotics that may have less side effects. Patient does not have any insight into her history of behaviors or delusions and currently, cannot accurately reflect on whether she ultimately enjoyed her life off medications. Mixed [employer] Farm Worker has discussed this case with 2 other psychiatrists who have known patient over the years and who report that off medications she is floridly psychotic and on medication she has been able to her life at some level. Given this collateral information as well as junior underwriter's own observations when patient was 1st admitted, it remains junior underwriter's opinion that off medications and without significant help in the community, including a guardian, she will end up homeless and terrified. -will organized family meeting with geriatric social work professor and Kong, her brother/guardian -patient is due for her 3rd installment of Prolixin Decanoate; initially it was hoped she could perhaps discharge soon after she received this 3rd dose. However, given her poor insight, her adamant, persistent request to have medications discontinued, and her guardians report that once she becomes stable, she feels and expresses the need to be on medications, it is junior underwriter's opinion that if patient were to be discharged at this time she would very quickly decompensate and be unable to function in the community and end up homeless, hungry, scared and overwhelmed by her delusions. Guardian fully agrees. For patient's safety, she needs to remain on the unit even after getting her 3rd dose of Prolixin Decanoate until she returns to her minimal baseline where she accepts the need for the medication. Regarding medication side effects, as mentioned above patient likely has some amount of TD and perhaps restlessness however patient seems to exaggerate her symptoms depending on her audience. PLAN: Patient is on a?community Marquis?extended and in effect until Nov 11, 2021. Patient has a?guardian, her brother Kong Guillaume It is writers strong opinion that patient needs to remain on a Marquis order in order for her function in the community; it's also writers strong opinion that she continues to need a guardian as she has no insight into her condition (which is impaired even at baseline) and needs ongoing help in multiple areas in order to function in the community. Will continue Prolxine dec [id number] however will lower to 17 mg to see if this can mitigate what junior underwriter agrees it is some amount of TD and Akathesia, Patient otherwise refuses any meds to help migate symptoms and won't consider al ternatives to Prolixin (such as Clozapine which is very low risk for TD, but risk to causes wt gain). pt signed CV Q 15 minute checks 1. Delusional disorder (not sure if AH; no disorganized behavior noted): -LOWERED Prolixin Dec 17mg IM due on 10/26/21 (last dose of Prolixin Decanoate 25 mg IM received on 10/12/21) -Propranolol 10mg qhs for EPS, help with sleep -patient on community Marquis and cannot refuse Prolixin -DC'd PO Prolixin due to c/o TD and akathesia (dc'd on 10/10); typically, overal ap Prolixin PO with Decanoate? (Decanoate 25 mg Q 2/3 weeks is roughly equivalent to Prolixin p.o. 15-20 mg daily Prolixin Dec is listed on her Marquis (CANNOT REFUSE), reviewed by junior underwriter and specified by her guardian (literature reports decanoate q. 3 weeks or longer has been as effective as q.2 weeks which is something patient can discuss with outpatient provider but is something that may reduce side-effects and thus increase adherence) -DC'd 1:1 pt not intrusive or interfering with others patients treatment) I spent minutes with the patient and/or on the patient floor today, greater than?50% of which was spent counseling/coordinating care. Reason for contiued inpatient stay Substantial Risk for: inability to function and rapid decompensation
[2021-10-25 21:40] VITALS: BP 140/64; PULSE 70
[2021-10-25] MEDS: Propranolol HCL 10 MG TABLET PO (21:44)
[2021-10-26] MEDS: Melatonin 3 MG TABLET PO ×2 (01:21→02:26)
[2021-10-26] MEDS: Acetaminophen 325 MG TABLET 650 MG PO ×4 (02:25→23:54)
[2021-10-26 06:00] VITALS: BP 136/82; RESP 16
[2021-10-26] MEDS: polyethylene glycoL 3350 17 GM POWD.PACK PO (08:36)
[2021-10-26] MEDS: fluPHENAZine decanoate 25 MG/ML 5 ML VIAL 17 MG IM (09:02)
--- NOTE | 2021-10-26 17:17 | P.PNPSI_ITS ---
Subjective Subjective Date of Service: 10/26/21 Reason For Visit: SECTION 12, THOUGHTS TO HARM OTHERS Interim History: Patient reports that symptoms are better now that she is getting Prolixin Decanoate 17 mg IM which she got today. Of note underwriter overheard patient talking on the phone and she was talking normally without slowed speech. Patient asked underwriter if she could get into an [facility] research study to which underwriter said he would investigate Mental Status Exam Mental Status Exam Narrative: Pt is alert and oriented; behavior calm, cooperative; less guarded, more willing to talk about herself; dressed in casual nightgown, appropriate, adequately groomed and with adequate hygiene; mood is described as better and affect congruent;? eye contact is appropriate; intermittently, Speech is normal rate, volume; no psychomotor retardation present; no TD or akathesia observed; thought process is organized and goal directed; Thought content on treatment; pt denies any current or hx of delusional thinking; denies SI/HI or AVH;? Patients insight and judgment impaired; improved in sense that she is no longer highly suspicious of staff, but no sense of psychiatric illness, her history of behaviors or need for medications. Diagnostics Vital Signs (24Hr): Vital Signs - 24 hr 10/25/21 21:40 10/26/21 06:00 Pulse Rate 70 Respiratory Rate 16 Blood Pressure 140/64 H 136/82 BMI result Verdana 4 Body Mass Index Verdana 4 26.6 Verdana 4 Verdana 4 Labs Results: 09/22/21 17:48 09/22/21 17:48 Medications Medications Current Medications Acetaminophen (Acetaminophen 325 Mg Tablet) 650 mg PO Q6H PRN PRN Reason: Headache/Pain Mild Scale (1-3) Last Admin: 10/26/21 15:18 Dose: 650 mg Documented by: Al Hydroxide/Mg Hydroxide (Magnesium Hydrox/Alum Hydrox 30 Ml Oral.Susp) 30 ml PO Q6H PRN PRN Reason: Heartburn/Nausea Fluphenazine Decanoate (Fluphenazine Decanoate 25 Mg/Ml 5 Ml Vial) 17 mg IM Q14D@0900 SARABJIT Last Admin: 10/26/21 09:02 Dose: 17 mg Documented by: Magnesium Hydroxide (Milk Of Magnesia 30 Ml Oral.Susp) 30 ml PO DAILY PRN PRN Reason: Constipation Last Admin: 01/22/22 12:58 Dose: 30 ml Documented by: Melatonin (Melatonin 3 Mg Tablet) 3 mg PO BEDTIME PRN PRN Reason: CONTINUED insomnia Last Admin: 10/26/21 02:26 Dose: 3 mg Documented by: Melatonin (Melatonin 3 Mg Tablet) 3 mg PO BEDTIME SARABJIT Last Admin: 10/26/21 01:21 Dose: 3 mg Documented by: Pharmacy Consult (Consult Rx Perform Med Rec) 1 each MISCELLANE ONCE PRN PRN Reason: Consult order Polyethylene Glycol (Polyethylene Glycol 3350 17 Gm Powd.Pack) 17 gm PO BID PRN PRN Reason: Constipation Last Admin: 10/26/21 08:36 Dose: 17 gm Documented by: Propranolol HCl (Propranolol Hcl 10 Mg Tablet) 10 mg PO BEDTIME SARABJIT; Protocol Last Admin: 10/25/21 21:44 Dose: 10 mg Documented by: Saliva Substitute (Dry Mouth Bristol 60 Ml Bristol) 1 spray MUCOUS MEM Q2H PRN PRN Reason: Dry Mouth Last Admin: 10/21/21 19:31 Dose: 1 spray Documented by: Allergies Allergies Allergy/AdvReac Type Severity Reaction Status Date / Time cashew nut Allergy Severe ANAPHYLAXIS Verified 10/04/21 19:44 peanut [Peanut] Allergy Severe ANAPHALAXIS Verified 10/04/21 19:44 Assessment & Plan Assessment & Plan (1) Schizophrenia: Status: Chronic Code(s): F20.9 - Schizophrenia, unspecified Plan IMPRESSION: Patient is a 61-year-old female with history of Delusional disorder (r/o schizophrenia), on a [facility] and with her brother as guardian, who presents via EMS following a wellness check by [facility] staff and police who found patient's apartment in a disheveled state and patient with paranoid delusions that her food was poisoned, there were bombs in the toilet and that [facility] staff was a part of the [employer] secret police who were planning her demise, in the face of going off her? Prolixin Decanoate this past December.? On admission she denied any SI, HI, AVH or any delusional thinking; she also denied that any of the reported events or findings from [facility]'s wellness check were true and denied that she has a mental illness.? Patient refused to sign in and was on a 12 B.? Patient was willing to take Prolixin p.o. She lacks all insight. HOSPITAL COURSE: Patient continues to lack all insight and has become verbally aggressive physically posturing with menacing affect, intruding into staff's personal space, verbally harassing staff and making it difficult for staff to carry out work on the unit.? Patient's behaviors have become unsafe; she refuses to increase p.o. Prolixin and for staff and milieu safety will order Prolixin Decanoate 25 mg IM which is on her Marquis and which her guardian says patient needs and agrees she should get. -signed CV after talking with guardian; also agreed with Prolixin Decanoate -patient superficially polite but easily triggered and intense anger; remains with paranoid, persecutory delusions and some grandiosity 09/30 patient remains superficially polite; guarded.? She has not been challenging staff.? Patient reports she is tired but denies any symptoms; agrees to in creasing Prolixin p.o. (which is on Marquis and cannot be refused) -Prolixin 25 mg decanoate is roughly equivalent to getting Prolixin 20 mg p.o. daily; additionally p.o. doses are overlapped for several weeks after restarting Decanoate.? Patient gets Decanoate every 2 weeks and literature typically uses q. 3 weeks for conversion so will titrate p.o. Prolixin to about 15 mg daily.? Discussed with patient who agrees 10/02 remains superficially polite; is guarded and continues to have paranoid, persecutory delusions 10/05 remains superficially polite; is guarded and continues to have paranoid, persecutory delusions but lessening a bit in intensity 10/07 remains superficially polite; is guarded; denies all psychiatric symptoms, though intermittently internally preoccupied; pt has denied paranoid, persecutory delusions to underwriter despite expressing them to others. Patient complains of some visual changes and akathisia which she attributes to restarting Prolixin and says this is very common for her when she restarts it or has a dose increase. Of note, underwriter does not notice any akathisia, tremor or other EPS symptoms however it's possible that patient may be experiencing a subclinical amount of EPS. 10/09Patient reports akathisia and tardive dyskinesia from the Prolixin. Patient shows underwriter her mouth which she is moving and says she has some mouth and tongue movements. She c/o restlessness in her legs and is thus walking the hallways. To that end she asks if a.m. dose of Prolixin committee lowered to 2.5 mg to which underwriter agrees. At this point it is difficult to say if patient is having actual tardive dyskinesia or if she is feigning TD to lower her p.o. Prolixin dose, which her guardian/brother has reported she may do. When looking at her mouth patient is clearly making it move and when distracted, mouth movements observed to by normal; similar observation made regarding akathesia; however it's possible that there could also be involuntarily mouth movent as well. Guardian says she has never had TD in the past. She does not want any additional medications to mitigate this possible side effect. Patient requests p.o. Prolixin to be discontinued and wants to just remain on the Decanoate. Television Script Writer agrees with this plan. While it is customary to overlap p.o. Prolixin with Decanoate, as it can take considerable time for Decanoate to reach steady state, it is however possible for decanoate to still become effective without p.o., though it will likely takes longer. 10/11 says TD and akathesia are significantly improved since dc'ing PO prolixin (none observed). She remains affable but guarded. Pt denies all psychiatric symptoms. She does not want to discuss events that occurred around admission or discuss hx diagnosis which she typically disputes, which makes it difficult to assess progress. Continue to rely on her guardians approximation of patients progress. However, off prolixin PO, patient might need to remain longer on unit; will discuss w/ guardian. 10/19 no change in presentation; no TD or akathisia observed; patient reports some mild intermittent tongue fasciculations but says it is much better. Remains amenable to treatment plan. Given patient's read a since will continue to reach out to guardian to help assess patient's stability 10/20Patient reports frustrating TD and restlessness. Yesterday patient said it had been minimal for several days however she reports the last night she had much trouble sleeping due to feeling her legs are restless and today she demonstrates that she has a hard time sitting still. Television Script Writer administered AIMS test: 10 Patient says that she is had the same symptoms for the past 5 years on Prolixin which have been about this level of intensity (patient has given some conflicting reports regarding his history and the week prior patient said that her history only included TD/akathisia at the initiation or restarting of Prolixin but that it eventually resolved on its own). Television Script Writer reviewed medication options and listed the medications she has tried or considered reporting they are either ineffective, cause weight gain or also caused TD and does not want to switch meds. She does not want any medication to ameliorate the symptoms including Ingrezza or propranolol, saying she rather tolerate these symptoms than have to take another medication. Television Script Writer said he would discuss this with her brother/guardian. However patient agrees to remain on this medication going forward. Of note, underwriter observed tobias TD symptoms during aims test even when distracted by other tasks. TD does wax and wane. 10/21 no insight; wants off meds due to med side-effect of TD and restlessness. other providers whov'e had her in past remember some mild TD; underwriter and staff speculate some of her symptoms may be exaggerated for effect, but as mentioned she has been observed with symptoms even when perceived to be alone. 10/24 patient reports she is miserable with medication side effects of slowed speech slow, slurred words, feeling drowsy. Today she did not complain of TD or akathisia but the opposite. Of note, patient did have slowed speech when speaking with underwriter and slow movements of her body, however moments earlier when she was talking with child protective services social worker in the hallway she was using normal speech and there was no psychomotor retardation. Again underwriter agrees that there is some amount of TD/akathisia or experience of restlessness and her body however these and other symptoms seem to be exaggerated in order to make a case for getting off Prolixin as the symptoms seem to vacillate between moderate/severe to absent depending on with whom she is speaking. Patient continues to refuse any other medications to ameliorate symptoms; she also refuses to consider any other antipsychotics that may have less side effects. Patient does not have any insight into her history of behaviors or delusions and currently, cannot accurately reflect on whether she ultimately enjoyed her life off medications. Television Script Writer has discussed this case with 2 other psychiatrists who have known patient over the years and who report that off medications she is floridly psychotic and on medication she has been able to her life at some level. Given this collateral information as well as underwriter's own observations when patient was 1st admitted, it remains underwriter's opinion that off medications and without significant help in the community, including a guardian, she will end up homeless and terrified. -will organized family meeting with child protective services social worker and Kong, her brother/guardian -patient is due for her 3rd installment of Prolixin Decanoate; initially it was hoped she could perhaps discharge soon after she received this 3rd dose. However, given her poor insight, her adamant, persistent request to have medications discontinued, and her guardians report that once she becomes stable, she feels and expresses the need to be on medications, it is underwriter's opinion that if patient were to be discharged at this time she would very quickly decompensate and be unable to function in the community and end up homeless, hungry, scared and overwhelmed by her delusions. Guardian fully agrees. For patient's safety, she needs to remain on the unit even after getting her 3rd dose of Prolixin Decanoate until she returns to her minimal baseline where she accepts the need for the medication. Regarding medication side effects, as mentioned above patient likely has some amount of TD and perhaps restlessness however patient seems to exaggerate her symptoms depending on her audience. -changed dx to schizophrenia paranoid type after reviewing history; this has been her chronic diagnosis. Patient had is internally preoccupied and responding to internal stimuli on the unit during this admission as well PLAN: Patient is on a?community Marquis?extended and in effect until Nov 11, 2021. Patient has a?guardian, her brother Kong Guillaume It is writers strong opinion that patient needs to remain on a Marquis order in order for her function in the community; it's also writers strong opinion that she continues to need a guardian as she has no insight into her condition (which is impaired even at baseline) and needs ongoing help in multiple areas in order to function in the community. Will continue Prolxine dec [id number] however will lower to 17 mg to see if this can mitigate what underwriter agrees it is some amount of TD and Akathesia, Patient otherwise refuses any meds to help migate symptoms and won't consider alternatives to Prolixin (such as Clozapine which is very low risk for TD, but risk to causes wt gain). pt signed CV Q 15 minute checks 1. Delusional disorder (not sure if AH; no disorganized behavior noted): -LOWERED Prolixin Dec 17mg IM due on 10/26/21 (last dose of Prolixin Decanoate 25 mg IM received on 10/12/21) -Propranolol 10mg qhs for EPS, help with sleep -patient on community health Marquis and cannot refuse Prolixin -DC'd PO Prolixin due to c/o TD and akathesia (dc'd on 10/10); typically, overalap Prolixin PO with Decanoate? (Decanoate 25 mg Q 2/3 weeks is roughly equivalent to Prolixin p.o. 15-20 mg daily Prolixin Dec is listed on her Marquis (CANNOT REFUSE), reviewed by underwriter and specified by her guardian (literature reports decanoate q. 3 weeks or longer has been as effective as q.2 weeks which is something patient can discuss with outpatient provider but is something that may reduce side-effects and thus increase adherence) -DC'd 1:1 pt not intrusive or interfering with others patients treatment) I spent minutes with the patient and/or on the patient floor today, greater than?50% of which was spent counseling/coordinating care. Reason for contiued inpatient stay Substantial Risk for: inability to function and rapid decompensation
[2021-10-26 18:49] VITALS: BP 130/70; PULSE 55; RESP 16; TEMP 36.4; O2SAT 100
[2021-10-26] MEDS: Propranolol HCL 10 MG TABLET PO (23:55)
[2021-10-27] MEDS: polyethylene glycoL 3350 17 GM POWD.PACK PO (08:33)
[2021-10-27] MEDS: Acetaminophen 325 MG TABLET 650 MG PO ×2 (08:33→14:47)
--- NOTE | 2021-10-27 16:04 | HO.PSYCHPN ---
Subjective Subjective Date of Service: 10/27/21 Reason For Visit: SECTION 12, THOUGHTS TO HARM OTHERS Interim History: Patient says that the TD and akathisia stopped yesterday but both are back a little bit today. Patient said she slept a little better last night and did not take propranolol toll after midnight. To another staff patient said I have some kind of delusional disorder which is the 1st time telegraphic typewriter repairer has heard of this patient referring to actually having a psychiatric disorder. Wraparound Facilitator did not address this however. Patient reports she has point tenderness on her left hand at the anatomical snuffbox. She said she had this before her admission but it seems to have gotten worse over the subsequent weeks. She denies any memory of falling or other trauma. On examination patient point tenderness in left anatomical snuffbox; no tenderness elsewhere Wraparound Facilitator ordered hand x-ray Diagnostics Vital Signs (24Hr): Vital Signs - 24 hr 10/26/21 18:49 Temperature 97.6 F Pulse Rate 55 Respiratory Rate 16 Blood Pressure 130/70 Pulse Oximetry 100 BMI result Body Mass Index 26.6 Labs Results: 09/22/21 17:48 09/22/21 17:48 Imaging Radiology Impressions: ITS Impressions Hand X-Ray 10/27/21 14:31 IMPRESSION: Unremarkable appearance of the left hand. No focal abnormality in the region of concern. Medications Medications Current Medications Acetaminophen (Acetaminophen 325 Mg Tablet) 650 mg PO Q6H PRN PRN Reason: Headache/Pain Mild Scale (1-3) Last Admin: 10/27/21 14:47 Dose: 650 mg Documented by: Al Hydroxide/Mg Hydroxide (Magnesium Hydrox/Alum Hydrox 30 Ml Oral.Susp) 30 ml PO Q6H PRN PRN Reason: Heartburn/Nausea Fluphenazine Decanoate (Fluphenazine Decanoate 25 Mg/Ml 5 Ml Vial) 17 mg IM Q14D@0900 SARABJIT Last Admin: 10/26/21 09:02 Dose: 17 mg Documented by: Magnesium Hydroxide (Milk Of Magnesia 30 Ml Oral.Susp) 30 ml PO DAILY PRN PRN Reason: Constipation Last Admin: 10/15/21 12:58 Dose: 30 ml Documented by: Melatonin (Melatonin 3 Mg Tablet) 3 mg PO BEDTIME PRN PRN Reason: CONTINUED insomnia Last Admin: 10/26/21 02:26 Dose: 3 mg Documented by: Melatonin (Melatonin 3 Mg Tablet) 3 mg PO BEDTIME SARABJIT Last Admin: 10/26/21 22:10 Dose: Not Given Documented by: Pharmacy Consult (Consult Rx Perform Med Rec) 1 each MISCELLANE ONCE PRN PRN Reason: Consult order Polyethylene Glycol (Polyethylene Glycol 3350 17 Gm Powd.Pack) 17 gm PO BID PRN PRN Reason: Constipation Last Admin: 10/27/21 08:33 Dose: 17 gm Documented by: Propranolol HCl (Propranolol Hcl 10 Mg Tablet) 10 mg PO BEDTIME SARABJIT; Protocol Last Admin: 10/26/21 23:55 Dose: 10 mg Documented by: Saliva Substitute (Dry Mouth [place] 60 Ml [place]) 1 spray MUCOUS MEM Q2H PRN PRN Reason: Dry Mouth Last Admin: 10/21/21 19:31 Dose: 1 spray Documented by: Allergies Allergies Allergy/AdvReac Type Severity Reaction Status Date / Time cashew nut Allergy Severe ANAPHYLAXIS Verified 10/04/21 19:44 peanut [Peanut] Allergy Severe ANAPHALAXIS Verified 10/04/21 19:44 Assessment & Plan Assessment & Plan (1) Schizophrenia: Status: Chronic Code(s): F20.9 - Schizophrenia, unspecified Plan IMPRESSION: Patient is a 61-year-old female with history of Delusional disorder (r/o schizophrenia), on a community Marquis and with her brother as guardian, who presents via EMS following a wellness check by [facility] staff and police who found patient's apartment in a disheveled state and patient with paranoid delusions that her food was poisoned, there were bombs in the toilet and that [facility] staff was a part of the [place] secret police who were planning her demise, in the face of going off her? Prolixin Decanoate this past December.? On admission she denied any SI, HI, AVH or any delusional thinking; she also denied that any of the reported events or findings from [facility]'s wellness check were true and denied that she has a mental illness.? Patient refused to sign in and was on a 12 B.? Patient was willing to take Prolixin p.o. She lacks all insight. HOSPITAL COURSE: Patient continues to lack all insight and has become verbally aggressive physically posturing with menacing affect, intruding into staff's personal space, verbally harassing staff and making it difficult for staff to carry out work on the unit.? Patient's behaviors have become unsafe; she refuses to increase p.o. Prolixin and for staff and milieu safety will order Prolixin Decanoate 25 mg IM which is on her Marquis and which her guardian says patient needs and agrees she should get. -signed CV after talking with guardian; also agreed with Prolixin Decanoate -patient superficially polite but easily triggered and intense anger; remains with paranoid, persecutory delusions and some grandiosity 09/30 patient remains superficially polite; guarded.? She has not been challenging staff.? Patient reports she is tired but denies any symptoms; agrees to increasing Prolixin p.o. (which is on Marquis and cannot be refused) -Prolixin 25 mg decanoate is roughly equivalent to getting Prolixin 20 mg p.o. daily; additionally p.o. doses are overlapped for several weeks after restarting Decanoate.? Patient gets Decanoate every 2 weeks and literature typically uses q. 3 weeks for conversion so will titrate p.o. Prolixin to about 15 mg daily.? Discussed with patient who agrees 10/02 remains superficially polite; is guarded and continues to have paranoid, persecutory delusions 10/05 remains superficially polite; is guarded and continues to have paranoid, persecutory delusions but lessening a bit in intensity 10/07 remains superficially polite; is guarded; denies all psychiatric symptoms, though intermittently internally preoccupied; pt has denied paranoid, persecutory delusions to telegraphic typewriter repairer despite expressing them to others. Patient complains of some visual changes and akathisia which she attributes to restarting Prolixin and says this is very common for her when she restarts it or has a dose increase. Of note, telegraphic typewriter repairer does not notice any akathisia, tremor or other EPS symptoms however it's possible that patient may be experiencing a subclinical amount of EPS. 10/09Patient reports akathisia and tardive dyskinesia from the Prolixin. Patient shows telegraphic typewriter repairer her mouth which she is moving and says she has some mouth and tongue movements. She c/o restlessness in her legs and is thus walking the hallways. To that end she asks if a.m. dose of Prolixin committee lowered to 2.5 mg to which telegraphic typewriter repairer agrees. At this point it is difficult to say if patient is having actual tardive dyskinesia or if she is feigning TD to lower her p.o. Prolixin dose, which her guardian/brother has reported she may do. When looking at her mouth patient is clearly making it move and when distracted, mouth movements observed to by normal; similar observation made regarding akathesia; however it's possible that there could also be involuntarily mouth movent as well. Guardian says she has never had TD in the past. She does not want any additional medications to mitigate this possible side effect. Patient requests p.o. Prolixin to be discontinued and wants to just remain on the Decanoate. Wraparound Facilitator agrees with this plan. While it is customary to overlap p.o. Prolixin with Decanoate, as it can take considerable time for Decanoate to reach steady state, it is however possible for decanoate to still become effective without p.o., though it will likely takes longer. 10/11 says TD and akathesia are significantly improved since dc'ing PO prolixin (none observed). She remains affable but guarded. Pt denies all psychiatric symptoms. She does not want to discuss events that occurred around admission or discuss hx diagnosis which she typically disputes, which makes it difficult to assess progress. Continue to rely on her guardians approximation of patients progress. However, off prolixin PO, patient might need to remain longer on unit; will discuss w/ guardian. 10/19 no change in presentation; no TD or akathisia observed; patient reports some mild intermittent tongue fasciculations but says it is much better. Remains amenable to treatment plan. Given patient's read a since will continue to reach out to guardian to help assess patient's stability 10/20Patient reports frustrating TD and restlessness. Yesterday patient said it had been minimal for several days however she reports the last night she had much trouble sleeping due to feeling her legs are restless and today she demonstrates that she has a hard time sitting still. Wraparound Facilitator administered AIMS test: 10 Patient says that she is had the same symptoms for the past 5 years on Prolixin which have been about this level of intensity (patient has given some conflicting reports regarding his history and the week prior patient said that her history only included TD/akathisia at the initiation or restarting of Prolixin but that it eventually resolved on its own). Wraparound Facilitator reviewed medication options and listed the medications she has tried or considered reporting they are either ineffective, cause weight gain or also caused TD and does not want to switch meds. She does not want any medication to ameliorate the symptoms including Ingrezza or propranolol, saying she rather tolerate these symptoms than have to take another medication. Wraparound Facilitator said he would discuss this with her brother/guardian. However patient agrees to remain on this medication going forward. Of note, telegraphic typewriter repairer observed tobias TD symptoms during aims test even when distracted by other tasks. TD does wax and wane. 10/21 no insight; wants off meds due to med side-effect of TD and restlessness. other providers whov'e had her in past remember some mild TD; telegraphic typewriter repairer and staff speculate some of her symptoms may be exaggerated for effect, but as mentioned she has been observed with symptoms even when perceived to be alone. 10/24 patient reports she is miserable with medication side effects of slowed speech slow, slurred words, feeling drowsy. Today she did not complain of TD or akathisia but the opposite. Of note, patient did have slowed speech when speaking with telegraphic typewriter repairer and slow movements of her body, however moments earlier when she was talking with perinatal social worker in the hallway she was using normal speech and there was no psychomotor retardation. Again telegraphic typewriter repairer agrees that there is some amount of TD/akathisia or experience of restlessness and her body however these and other symptoms seem to be exaggerated in order to make a case for getting off Prolixin as the symptoms seem to vacillate between moderate/severe to absent depending on with whom she is speaking. Patient continues to refuse any other medications to ameliorate symptoms; she also refuses to consider any other antipsychotics that may have less side effects. Patient does not have any insight into her history of behaviors or delusions and currently, cannot accurately reflect on whether she ultimately enjoyed her life off medications. Wraparound Facilitator has discussed this case with 2 other psychiatrists who have known patient over the years and who report that off medications she is floridly psychotic and on medication she has been able to her life at some level. Given this collateral information as well as telegraphic typewriter repairer's own observations when patient was 1st admitted, it remains telegraphic typewriter repairer's opinion that off medications and without significant help in the community, including a guardian, she will end up homeless and terrified. -will organized family meeting with perinatal social worker and Kong, her brother/guardian -patient is due for her 3rd installment of Prolixin Decanoate; initially it was hoped she could perhaps discharge soon after she received this 3rd dose. However, given her poor insight, her adamant, persistent request to have medications discontinued, and her guardians report that once she becomes stable, she feels and expresses the need to be on medications, it is telegraphic typewriter repairer's opinion that if patient were to be discharged at this time she would very quickly decompensate and be unable to function in the community and end up homeless, hungry, scared and overwhelmed by her delusions. Guardian fully agrees. For patient's safety, she needs to remain on the unit even after getting her 3rd dose of Prolixin Decanoate until she returns to her minimal baseline where she accepts the need for the medication. Regarding medication side effects, as mentioned above patient likely has some amount of TD and perhaps restlessness however patient seems to exaggerate her symptoms depending on her audience. 2/3 patient says some minor reduction in TD/restlessness since lowering Prolixin dose. -To another staff patient said I have some kind of delusional disorder which is the 1st time telegraphic typewriter repairer has heard of this patient referring to actually having a psychiatric disorder. PLAN: pt signed CV Q 15 minute checks Patient is on a?community Marquis?extended and in effect until Nov 11, 2021. Patient has a?guardian, her brother Kong Guillaume It is writers strong opinion that patient needs to remain on a Marquis order in order for her function in the community; it's also writers strong opinion that she continues to need a guardian as she has no insight into her condition (which is impaired even at baseline) and needs ongoing help in multiple areas in order to function in the community. 1. Left hand point tenderness anatomical snuff box Patient reports she has point tenderness on her left hand at the anatomical snuffbox which was present before admission; says has worsened; denies memory of falling or other trauma. On examination patient point tenderness in left anatomical snuffbox; no tenderness elsewhere -ordered left hand/wrist xray 2.Schizophrenia, paranoid type (pt carries this dx) -LOWERED Prolixin Dec 17mg IM due on 10/26/21 (last dose of Prolixin Decanoate 25 mg IM received on 10/12/21); lowered to see if it can mitigate some of patient's reported TD/restlessness/akathisia -Propranolol 10mg qhs for EPS, help with sleep -patient on [facility] Marquis and cannot refuse Prolixin -Patient refuses any meds to help migate symptoms and won't consider alternatives to Prolixin (such as Clozapine which is very low risk for TD, but risk to causes wt gain). -DC'd PO Prolixin due to c/o TD and akathesia (dc'd on 10/10); typically, overalap Prolixin PO with Decanoate? (Decanoate 25 mg Q 2/3 weeks is roughly equivalent to Prolixin p.o. 15-20 mg daily Prolixin Dec is listed on her Marquis (CANNOT REFUSE), reviewed by telegraphic typewriter repairer and specified by her guardian (literature reports decanoate q. 3 weeks or longer has been as effective as q.2 weeks which is something patient can discuss with outpatient provider but is something that may reduce side-effects and thus increase adherence) -DC'd 1:1 pt not intrusive or interfering with others patients treatment) I spent minutes with the patient and/or on the patient floor today, greater than?50% of which was spent counseling/coordinating care. Reason for contiued inpatient stay Substantial Risk for: inability to function and rapid decompensation
[2021-10-27] MEDS: Propranolol HCL 10 MG TABLET PO (18:48)
[2021-10-27 18:55] VITALS: BP 132/78; PULSE 65
[2021-10-27] MEDS: Ibuprofen 600 MG TABLET PO (21:21)
[2021-10-27] MEDS: Melatonin 3 MG TABLET PO (22:11)
[2021-10-28] MEDS: polyethylene glycoL 3350 17 GM POWD.PACK PO (06:22)
[2021-10-28 08:08] VITALS: BMI 18.6
--- NOTE | 2021-10-28 10:11 | P.PNPSI_ITS ---
Subjective Subjective Date of Service: 10/28/21 Reason For Visit: SECTION 12, THOUGHTS TO HARM OTHERS Interim History: Reports TD remains but is minimal; akathisia helped by propranolol but she still feels some restlessness. Patient is asking for Prolixin level to which television script writer agrees; also she agrees to a hemoglobin A1c and lipids. Patient was discouraged to learn that [facility] is not accepting new participants further studies. Patient said she seems to be the only 1 in her family with This And wanted to see if there was a genetic component. She asked if it is possible to find out what the study is researching and if she could pay [id number] to have the same samples assessed. Reviewed wrist x-ray which is negative for fracture; patient continues to deny any fall or trauma and Says it has been feeling better with ibuprofen. Marine Engineer asked about patient's Comment yesterday regarding her delusional disorder. She in a rare moment of disclosure sure that she does seem to have a delusional disorder and that some things she believes are delusions but some things are real. Patient shared how her toilet was really broken, the door was really broken and eventually the sink too; with the toilet, door and sink all 3 broken at the same time, she said I got freaked out as if there was a persecutory intent behind this coincidence. Mental Status Exam Mental Status Exam Narrative: Pt is alert and oriented; behavior calm, cooperative; less guarded, more willing to talk about herself; dressed in casual nightgown, appropriate, adequately groomed and with adequate hygiene; mood is described as ok and affect congruent and overall wamrer, smiling at times;? eye contact is appropriate; Speech is normal rate, volume; no psychomotor retardation present; no TD observed but mild reported; pt dose have restless movements; thought process is organized and goal directed; Thought content on treatment; denies any current delusional thinking; denies SI/HI or AVH;? Patients insight and judgment still impaired but improving and has shared that she thinks she has a delusional disorder Which carvalho a significant improvement in her insight; Judgment also improved as patient decided to not contest the guardian or Marquis order this year Diagnostics Vital Signs (24Hr): Vital Signs - 24 hr 10/27/21 18:55 Pulse Rate 65 Blood Pressure 132/78 BMI result Verdana 4 Body Mass Index Verdana 4 18.6 Verdana 4 Verdana 4 Labs Results: 09/22/21 17:48 09/22/21 17:48 Imaging Radiology Impressions: ITS Impressions Hand X-Ray 10/27/21 14:31 IMPRESSION: Unremarkable appearance of the left hand. No focal abnormality in the region of concern. Medications Medications Current Medications Acetaminophen (Acetaminophen 325 Mg Tablet) 650 mg PO Q6H PRN PRN Reason: Headache/Pain Mild Scale (1-3) Last Admin: 10/27/21 14:47 Dose: 650 mg Documented by: Al Hydroxide/Mg Hydroxide (Magnesium Hydrox/Alum Hydrox 30 Ml Oral.Susp) 30 ml PO Q6H PRN PRN Reason: Heartburn/Nausea Fluphenazine Decanoate (Fluphenazine Decanoate 25 Mg/Ml 5 Ml Vial) 17 mg IM Q14D@0900 [facility] Last Admin: 10/26/21 09:02 Dose: 17 mg Documented by: Magnesium Hydroxide (Milk Of Magnesia 30 Ml Oral.Susp) 30 ml PO DAILY PRN PRN Reason: Constipation Last Admin: 10/15/21 12:58 Dose: 30 ml Documented by: Melatonin (Melatonin 3 Mg Tablet) 3 mg PO BEDTIME PRN PRN Reason: CONTINUED insomnia Last Admin: 10/26/21 02:26 Dose: 3 mg Documented by: Melatonin (Melatonin 3 Mg Tablet) 3 mg PO BEDTIME [facility] Last Admin: 10/27/21 22:11 Dose: 3 mg Documented by: Pharmacy Consult (Consult Rx Perform Med Rec) 1 each MISCELLANE ONCE PRN PRN Reason: Consult order Polyethylene Glycol (Polyethylene Glycol 3350 17 Gm Powd.Pack) 17 gm PO BID PRN PRN Reason: Constipation Last Admin: 10/28/21 06:22 Dose: 17 gm Documented by: Propranolol HCl (Propranolol Hcl 10 Mg Tablet) 10 mg PO BEDTIME SARABJIT; Protocol Last Admin: 10/27/21 18:48 Dose: 10 mg Documented by: Saliva Substitute (Dry Mouth [place] 60 Ml [place]) 1 spray MUCOUS MEM Q2H PRN PRN Reason: Dry Mouth Last Admin: 10/21/21 19:31 Dose: 1 spray Documented by: Allergies Allergies Allergy/AdvReac Type Severity Reaction Status Date / Time cashew nut Allergy Severe ANAPHYLAXIS Verified 10/04/21 19:44 peanut [Peanut] Allergy Severe ANAPHALAXIS Verified 10/04/21 19:44 Assessment & Plan Assessment & Plan (1) Schizophrenia: Status: Chronic Code(s): F20.9 - Schizophrenia, unspecified Plan IMPRESSION: Patient is a 61-year-old female with history of Delusional disorder (r/o schizophrenia), on a community Marquis and with her brother as guardian, who pr esents via EMS following a wellness check by [facility] staff and police who found patient's apartment in a disheveled state and patient with paranoid delusions that her food was poisoned, there were bombs in the toilet and that [facility] staff was a part of the [place] secret police who were planning her demise, in the face of going off her? Prolixin Decanoate this past December.? On admission she denied any SI, HI, AVH or any delusional thinking; she also denied that any of the reported events or findings from [facility]'s wellness check were true and denied that she has a mental illness.? Patient refused to sign in and was on a 12 B.? Patient was willing to take Prolixin p.o. She lacks all insight. HOSPITAL COURSE: Patient continues to lack all insight and has become verbally aggressive physically posturing with menacing affect, intruding into staff's personal space, verbally harassing staff and making it difficult for staff to carry out work on the unit.? Patient's behaviors have become unsafe; she refuses to increase p.o. Prolixin and for staff and milieu safety will order Prolixin Decanoate 25 mg IM which is on her Marquis and which her guardian says patient needs and agrees she should get. -signed CV after talking with guardian; also agreed with Prolixin Decanoate -patient superficially polite but easily triggered and intense anger; remains with paranoid, persecutory delusions and some grandiosity 09/30 patient remains superficially polite; guarded.? She has not been challenging staff.? Patient reports she is tired but denies any symptoms; agrees to increasing Prolixin p.o. (which is on Marquis and cannot be refused) -Prolixin 25 mg decanoate is roughly equivalent to getting Prolixin 20 mg p.o. daily; additionally p.o. doses are overlapped for several weeks after restarting Decanoate.? Patient gets Decanoate every 2 weeks and literature typically uses q. 3 weeks for conversion so will titrate p.o. Prolixin to about 15 mg daily.? Discussed with patient who agrees 10/02 remains superficially polite; is guarded and continues to have paranoid, persecutory delusions 10/05 remains superficially polite; is guarded and continues to have paranoid, persecutory delusions but lessening a bit in intensity 10/07 remains superficially polite; is guarded; denies all psychiatric symptoms, though intermittently internally preoccupied; pt has denied paranoid, persecutory delusions to television script writer despite expressing them to others. Patient complains of some visual changes and akathisia which she attributes to restarting Prolixin and says this is very common for her when she restarts it or has a dose increase. Of note, television script writer does not notice any akathisia, tremor or other EPS symptoms however it's possible that patient may be experiencing a subclinical amount of EPS. 10/09Patient reports akathisia and tardive dyskinesia from the Prolixin. Patient shows television script writer her mouth which she is moving and says she has some mouth and tongue movements. She c/o restlessness in her legs and is thus walking the hallways. To that end she asks if a.m. dose of Prolixin committee lowered to 2.5 mg to which television script writer agrees. At this point it is difficult to say if patient is having actual tardive dyskinesia or if she is feigning TD to lower her p.o. Prolixin dose, which her guardian/brother has reported she may do. When looking at her mouth patient is clearly making it move and when distracted, mouth movements observed to by normal; similar observation made regarding akathesia; however it's possible that there could also be involuntarily mouth movent as well. Guardian says she has never had TD in the past. She does not want any additional medications to mitigate this possible side effect. Patient requests p.o. Prolixin to be discontinued and wants to just remain on the Decanoate. Marine Engineer agrees with this plan. While it is customary to overlap p.o. Prolixin with Decanoate, as it can take considerable time for Decanoate to reach steady state, it is however possible for decanoate to still become effective without p.o., though it will likely takes longer. 10/11 says TD and akathesia are significantly improved since dc'ing PO prolixin (none observed). She remains affable but guarded. Pt denies all psychiatric symptoms. She does not want to discuss events that occurred around admission or discuss hx diagnosis which she typically disputes, which makes it difficult to assess progress. Continue to rely on her guardians approximation of patients progress. However, off prolixin PO, patient might need to remain longer on unit; will discuss w/ guardian. 10/19 no change in presentation; no TD or akathisia observed; patient reports some mild intermittent tongue fasciculations but says it is much better. Remains amenable to treatment plan. Given patient's read a since will continue to reach out to guardian to help assess patient's stability 10/20Patient reports frustrating TD and restlessness. Yesterday patient said it had been minimal for several days however she reports the last night she had much trouble sleeping due to feeling her legs are restless and today she demonstrates that she has a hard time sitting still. Marine Engineer administered AIMS test: 10 Patient says that she is had the same symptoms for the past 5 years on Prolixin which have been about this level of intensity (patient has given some conflicting reports regarding his history and the week prior patient said that her history only included TD/akathisia at the initiation or restarting of Prol ixin but that it eventually resolved on its own). Marine Engineer reviewed medication options and listed the medications she has tried or considered reporting they are either ineffective, cause weight gain or also caused TD and does not want to switch meds. She does not want any medication to ameliorate the symptoms including Ingrezza or propranolol, saying she rather tolerate these symptoms than have to take another medication. Marine Engineer said he would discuss this with her brother/guardian. However patient agrees to remain on this medication going forward. Of note, television script writer observed tobias TD symptoms during aims test even when distracted by other tasks. TD does wax and wane. 10/21 no insight; wants off meds due to med side-effect of TD and restlessness. other providers whov'e had her in past remember some mild TD; television script writer and staff speculate some of her symptoms may be exaggerated for effect, but as mentioned she has been observed with symptoms even when perceived to be alone. 10/24 patient reports she is miserable with medication side effects of slowed speech slow, slurred words, feeling drowsy. Today she did not complain of TD or akathisia but the opposite. Of note, patient did have slowed speech when speaking with television script writer and slow movements of her body, however moments earlier when she was talking with social service worker in the hallway she was using normal speech and there was no psychomotor retardation. Again television script writer agrees that there is some amount of TD/akathisia or experience of restlessness and her body however these and other symptoms seem to be exaggerated in order to make a case for getting off Prolixin as the symptoms seem to vacillate between moderate/severe to absent depending on with whom she is speaking. Patient continues to refuse any other medications to ameliorate symptoms; she also refuses to consider any other antipsychotics that may have less side effects. P rona does not have any insight into her history of behaviors or delusions and currently, cannot accurately reflect on whether she ultimately enjoyed her life off medications. Marine Engineer has discussed this case with 2 other psychiatrists who have known patient over the years and who report that off medications she is floridly psychotic and on medication she has been able to her life at some level. Given this collateral information as well as television script writer's own observations when patient was 1st admitted, it remains television script writer's opinion that off medications and without significant help in the community, including a guardian, she will end up homeless and terrified. -will organized family meeting with social service worker and Kong, her brother/guardian -patient is due for her 3rd installment of Prolixin Decanoate; initially it was hoped she could perhaps discharge soon after she received this 3rd dose. However, given her poor insight, her adamant, persistent request to have medications discontinued, and her guardians report that once she becomes stable, she feels and expresses the need to be on medications, it is television script writer's opinion that if patient were to be discharged at this time she would very quickly decompensate and be unable to function in the community and end up homeless, hungry, scared and overwhelmed by her delusions. Guardian fully agrees. For patient's safety, she needs to remain on the unit even after getting her 3rd dose of Prolixin Decanoate until she returns to her minimal baseline where she accepts the need for the medication. Regarding medication side effects, as mentioned above patient likely has some amount of TD and perhaps restlessness however patient seems to exaggerate her symptoms depending on her audience. 2/ patient says some minor reduction in TD/restlessness since lowering Prolixin dose. -To another staff patient said I have some kind of delusional disorder which is the 1st time television script writer has heard of this patient referring to actually having a psychiatric disorder. 10/28 Patient disclosed To television script writer that she think she has a delusional disorder and said that it is confusing to her since something is a delusion and some things are real; decided not to contest Marquis regarding PLAN: pt signed CV Q 15 minute checks Patient is on a?community Marquis?extended and in effect until Nov 11, 2021. Patient has a?guardian, her brother Kong Guillaume It is writers strong opinion that patient needs to remain on a Marquis order in order for her function in the community; it's also writers strong opinion that she continues to need a guardian as she has no insight into her condition (which is impaired even at baseline) and needs ongoing help in multiple areas in order to function in the community. 1.Schizophrenia, paranoid type (pt carries this dx) -LOWERED Prolixin Dec 17mg IM due on 10/26/21 (last dose of Prolixin Decanoate 25 mg IM received on 10/12/21); lowered to see if it can mitigate some of patient's reported TD/restlessness/akathisia -Propranolol 10mg qhs for EPS, help with sleep -patient on community Marquis and cannot refuse Prolixin -Patient refuses any meds to help migate symptoms and won't consider alternatives to Prolixin (such as Clozapine which is very low risk for TD, but risk to causes wt gain). -DC'd PO Prolixin due to c/o TD and akathesia (dc'd on 10/10); typically, overalap Prolixin PO with Decanoate? (Decanoate 25 mg Q 2/3 weeks is roughly equivalent to Prolixin p.o. 15-20 mg daily Prolixin Dec is listed on her Marquis (CANNOT REFUSE), reviewed by television script writer and specified by her guardian (literature reports decanoate q. 3 weeks or longer has been as effective as q.2 weeks which is something patient can discuss with outpatient provider but is something that may reduce side-effects and thus increase adherence) -DC'd 1:1 pt not intrusive or interfering with others patients treatment) 2. Left hand point tenderness anatomical snuff box Patient reports she has point tenderness on her left hand at the anatomical snuffbox which was present before admission; says has worsened; denies any hx of fall or other hand trauma. On examination patient point tenderness in left anatomical snuffbox; no tendern ess elsewhere -left hand/wrist xray unremarkable, no fracture; -pain decreased with ibuprofen I spent minutes with the patient and/or on the patient floor today, grea ter than?50% of which was spent counseling/coordinating care. Reason for contiued inpatient stay Substantial Risk for: inability to function and rapid decompensation
[2021-10-28] MEDS: Ibuprofen 600 MG TABLET PO ×2 (10:49→16:53)
[2021-10-28 19:35] VITALS: BP 148/90; PULSE 60
[2021-10-28] MEDS: Propranolol HCL 10 MG TABLET PO (19:37)
[2021-10-28] MEDS: Melatonin 3 MG TABLET PO (19:37)
[2021-10-29] MEDS: Melatonin 3 MG TABLET PO ×2 (01:53→19:42)
[2021-10-29] MEDS: Ibuprofen 600 MG TABLET PO ×2 (06:42→12:45)
[2021-10-29] MEDS: polyethylene glycoL 3350 17 GM POWD.PACK PO (06:42)
[2021-10-29] MEDS: Acetaminophen 325 MG TABLET 650 MG PO (16:31)
--- NOTE | 2021-10-29 16:38 | P.PNPSI_ITS ---
Subjective Subjective Date of Service: 10/29/21 Reason For Visit: SECTION 12, THOUGHTS TO HARM OTHERS Interim History: Patient seen and discussed with team. Per staff psychologist, she has been taking miralax daily, concerned with wt gain. Patient evaluated this morning and upon interview pt reports she is worried about wt gain on prolixin, says it makes her hungrier and she doesnt have drive for exercise due to akathesia. Says propranolol helps with restlessness/ akathesia but not pacing back and forth, declined Thinks akathesia has gotten a little better after decreasing dose of prolixin. Sleep better than usual, getting 6-7 hours of sleep with melatonin. In the milieu, patient is safe and appropriate in behavior, pacing the halls. Denies SI/SIB/HI upon inquiry. Denies irritability or assaultive ideation. Says she feels safe. Medication Compliance: Yes Side effects from medications: Yes Attending Groups: Intermittent Review of Systems Acute medical concerns: No Medical Review of Systems: unchanged Mental Status Exam Mental Status Exam Narrative: Pt is alert and oriented; behavior calm, cooperative; less guarded, more willing to talk about herself; dressed in casual nightgown, appropriate, adequately groomed and with adequate hygiene; mood is described as fine and affect congruent and overall warmer, smiling at times;? eye contact is appropriate; Speech is normal rate, volume; no psychomotor retardation present; no TD ob served but mild reported; pt dose have restless movements;? thought process is organized and goal directed; Thought content on treatment; denies any current delusional thinking; denies SI/HI or AVH;? Patients insight and judgment still impaired but improving and has shared that she thinks she has a delusional disorder Which carvalho a significant improvement in her insight; Judgment also improved as patient decided to not contest the guardian or Marquis order this year Diagnostics Vital Signs (24Hr): Vital Signs - 24 hr 10/30/21 21:45 Pulse Rate 60 Blood Pressure 136/86 BMI result Verdana 4 Body Mass Index Verdana 4 18.6 Verdana 4 Verdana 4 Labs Results: 09/22/21 17:48 09/22/21 17:48 Labs: Laboratory Results - last 48 hr 10/30/21 10/30/21 10/30/21 09:33 09:33 09:33 Estimat Average Glucose 103 Hemoglobin A1c % 5.2 Triglycerides 59 Cholesterol 224 LDL Cholesterol, Calc 148 HDL Cholesterol 65 Vitamin B12 689 Imaging Radiology Impressions: ITS Impressions Hand X-Ray 10/27/21 14:31 IMPRESSION: Unremarkable appearance of the left hand. No focal abnormality in the region of concern. Medications Medications Current Medications Acetaminophen (Acetaminophen 325 Mg Tablet) 650 mg PO Q6H PRN PRN Reason: Headache/Pain Mild Scale (1-3) Last Admin: 10/31/21 06:51 Dose: 650 mg Documented by: Al Hydroxide/Mg Hydroxide (Magnesium Hydrox/Alum Hydrox 30 Ml Oral.Susp) 30 ml PO Q6H PRN PRN Reason: Heartburn/Nausea Fluphenazine Decanoate (Fluphenazine Decanoate 25 Mg/Ml 5 Ml Vial) 17 mg IM Q14D@0900 SARABJIT Last Admin: 10/26/21 09:02 Dose: 17 mg Documented by: Ibuprofen (Ibuprofen 600 Mg Tablet) 600 mg PO Q6H PRN PRN Reason: Pain, Mild (Pain Scale 1-3) Last Admin: 10/30/21 06:42 Dose: 600 mg Documented by: Lorazepam (Lorazepam 0.5 Mg Tablet) 0.25 mg PO Q4H PRN PRN Reason: akathesia Last Admin: 10/31/21 06:50 Dose: 0.25 mg Documented by: Magnesium Hydroxide (Milk Of Magnesia 30 Ml Oral.Susp) 30 ml PO DAILY PRN PRN Reason: Constipation Last Admin: 10/15/21 12:58 Dose: 30 ml Documented by: Melatonin (Melatonin 3 Mg Tablet) 3 mg PO BEDTIME PRN PRN Reason: CONTINUED insomnia Last Admin: 10/30/21 04:10 Dose: 3 mg Documented by: Melatonin (Melatonin 3 Mg Tablet) 3 mg PO BEDTIME SARABJIT Last Admin: 10/30/21 21:52 Dose: 3 mg Documented by: Pharmacy Consult (Consult Rx Perform Med Rec) 1 each MISCELLANE ONCE PRN PRN Reason: Consult order Polyethylene Glycol (Polyethylene Glycol 3350 17 Gm Powd.Pack) 17 gm PO BID PRN PRN Reason: Constipation Last Admin: 10/30/21 04:11 Dose: 17 gm Documented by: Propranolol HCl (Propranolol Hcl 10 Mg Tablet) 10 mg PO BEDTIME SARABJIT; Protocol Last Admin: 10/30/21 21:51 Dose: 10 mg Documented by: Saliva Substitute (Dry Mouth Perry 60 Ml Perry) 1 spray MUCOUS MEM Q2H PRN PRN Reason: Dry Mouth Last Admin: 10/21/21 19:31 Dose: 1 spray Documented by: Allergies Allergies Allergy/AdvReac Type Severity Reaction Status Date / Time cashew nut Allergy Severe ANAPHYLAXIS Verified 10/04/21 19:44 peanut [Peanut] Allergy Severe ANAPHALAXIS Verified 10/04/21 19:44 Assessment & Plan Assessment & Plan (1) Schizophrenia: Status: Chronic Code(s): F20.9 - Schizophrenia, unspecified Plan IMPRESSION: Patient is a 61-year-old female with history of Delusional disorder (r/o schizophrenia), on a community Marquis and with her brother as guardian, who presents via EMS following a wellness check by [facility] staff and police who found patient's apartment in a disheveled state and patient with paranoid delusions that her food was poisoned, there were bombs in the toilet and that [facility] staff was a part of the [place] secret police who were planning her demise, in the face of going off her? Prolixin Decanoate this past December.? On admission she denied any SI, HI, AVH or any delusional thinking; she also denied that any of the reported events or findings from [facility]'s wellness check were true and denied that she has a mental illness.? Patient refused to sign in and was on a 12 B.? Patient was willing to take Prolixin p.o. She lacks all insight. HOSPITAL COURSE: Patient continues to lack all insight and has become verbally aggressive physically posturing with menacing affect, intruding into staff's personal space, verbally harassing staff and making it difficult for staff to carry out work on the unit.? Patient's behaviors have become unsafe; she refuses to increase p.o. Prolixin and for staff and milieu safety will order Prolixin Decanoate 25 mg IM which is on her Marquis and which her guardian says patient needs and agrees she should get. -signed CV after talking with guardian; also agreed with Prolixin Decanoate -patient superficially polite but easily triggered and intense anger; remains with paranoid, persecutory delusions and some grandiosity 09/30 patient remains superficially polite; guarded.? She has not been challenging staff.? Patient reports she is tired but denies any symptoms; agrees to increasing Prolixin p.o. (which is on Marquis and cannot be refused) -Prolixin 25 mg decanoate is roughly equivalent to getting Prolixin 20 mg p.o. daily; additionally p.o. doses are overlapped for several weeks after restarting Decanoate.? Patient gets Decanoate every 2 weeks and literature typically uses q. 3 weeks for conversion so will titrate p.o. Prolixin to about 15 mg daily.? Discussed with patient who agrees 10/02 remains superficially polite; is guarded and continues to have paranoid, persecutory delusions 10/05 remains superficially polite; is guarded and continues to have paranoid, persecutory delusions but lessening a bit in intensity 10/07 remains superficially polite; is guarded; denies all psychiatric symptoms, though intermittently internally preoccupied; pt has denied paranoid, persecutory delusions to marine underwriter despite expressing them to others. Patient complains of some visual changes and akathisia which she attributes to restarting Prolixin and says this is very common for her when she restarts it or has a dose increase. Of note, marine underwriter does not notice any akathisia, tremor or other EPS symptoms however it's possible that patient may be experiencing a subclinical amount of EPS. 10/09Patient reports akathisia and tardive dyskinesia from the Prolixin. Patient shows marine underwriter her mouth which she is moving and says she has some mouth and tongue movements. She c/o restlessness in her legs and is thus walking the hallways. To that end she asks if a.m. dose of Prolixin committee lowered to 2.5 mg to which marine underwriter agrees. At this point it is difficult to say if patient is having actual tardive dyskinesia or if she is feigning TD to lower her p.o. Prolixin dose, which her guardian/brother has reported she may do. When looking at her mouth patient is clearly making it move and when distracted, mouth movements observed to by normal; similar observation made regarding akathesia; however it's possible that there could also be involuntarily mouth movent as well. Guardian says she has never had TD in the past. She does not want any additional medications to mitigate this possible side effect. Patient requests p.o. Prolixin to be discontinued and wants to just remain on the Decanoate. Multiple Tube Winding Machine Operator agrees with this plan. While it is customary to overlap p.o. Prolixin with Decanoate, as it can take considerable time for Decanoate to reach steady state, it is however possible for decanoate to still become effective without p.o., though it will likely takes longer. 10/11 says TD and akathesia are significantly improved since dc'ing PO prolixin (none observed). She remains affable but guarded. Pt denies all psychiatric sy mptoms. She does not want to discuss events that occurred around admission or discuss hx diagnosis which she typically disputes, which makes it difficult to assess progress. Continue to rely on her guardians approximation of patients progress. However, off prolixin PO, patient might need to remain longer on unit; will discuss w/ guardian. 10/19 no change in presentation; no TD or akathisia observed; patient reports some mild intermittent tongue fasciculations but says it is much better. Remains amenable to treatment plan. Given patient's read a since will continue to reach out to guardian to help assess patient's stability 10/20Patient reports frustrating TD and restlessness. Yesterday patient said it had been minimal for several days however she reports the last night she had much trouble sleeping due to feeling her legs are restless and today she demonstrates that she has a hard time sitting still. Multiple Tube Winding Machine Operator administered AIMS test: 10 Patient says that she is had the same symptoms for the past 5 years on Prolixin which have been about this level of intensity (patient has given some conflicting reports regarding his history and the week prior patient said that her history only included TD/akathisia at the initiation or restarting of Prolixin but that it eventually resolved on its own). Multiple Tube Winding Machine Operator reviewed medication options and listed the medications she has tried or considered reporting they are either ineffective, cause weight gain or also caused TD and does not want to switch meds. She does not want any medication to ameliorate the symptoms including Ingrezza or propranolol, saying she rather tolerate these symptoms than have to take another medication. Multiple Tube Winding Machine Operator said he would discuss this with her brother/guardian. However patient agrees to remain on this medication going forward. Of note, marine underwriter observed tobias TD symptoms during aims test even when distracted by other tasks. TD does wax and wane. 10/21 no insight; wants off meds due to med side-effect of TD and restlessness. other providers whov'e had her in past remember some mild TD; marine underwriter and staff speculate some of her symptoms may be exaggerated for effect, but as mentioned she has been observed with symptoms even when perceived to be alone. 10/24 patient reports she is miserable with medication side effects of slowed speech slow, slurred words, feeling drowsy. Today she did not complain of TD or akathisia but the opposite. Of note, patient did have slowed speech when speaking with marine underwriter and slow movements of her body, however moments earlier when she was talking with social insurance analyst in the hallway she was using normal speech and there was no psychomotor retardation. Again marine underwriter agrees that there is some amount of TD/akathisia or experience of restlessness and her body however these and other symptoms seem to be exaggerated in order to make a case for getting off Prolixin as the symptoms seem to vacillate between moderate/severe to absent depending on with whom she is speaking. Patient continues to refuse any other medications to ameliorate symptoms; she also refuses to consider any other antipsychotics that may have less side effects. Patient does not have any insight into her history of behaviors or delusions and currently, cannot accurately reflect on whether she ultimately enjoyed her life off medications. Multiple Tube Winding Machine Operator has discussed this case with 2 other psychiatrists who have known patient over the years and who report that off medications she is floridly psychotic and on medication she has been able to her life at some level. Given this collateral information as well as marine underwriter's own observations when patient was 1st admitted, it remains marine underwriter's opinion that off medications and without significant help in the community, including a guardian, she will end up homeless and terrified. -will organized family meeting with social insurance analyst and Kong, her brother/guardian -patient is due for her 3rd installment of Prolixin Decanoate; initially it was hoped she could perhaps discharge soon after she received this 3rd dose. However, given her poor insight, her adamant, persistent request to have medications discontinued, and her guardians report that once she becomes stable, she feels and expresses the need to be on medications, it is marine underwriter's opinion that if patient were to be discharged at this time she would very quickly decompensate and be unable to function in the community and end up homeless, hungry, scared and overwhelmed by her delusions. Guardian fully agrees. For patient's safety, she needs to remain on the unit even after getting her 3rd dose of Prolixin Decanoate until she returns to her minimal baseline where she accepts the need for the medication. Regarding medication side effects, as mentioned above patient likely has some amount of TD and perhaps restlessness however patient seems to exaggerate her symptoms depending on her audience. 10/27 patient says some minor reduction in TD/restlessness since lowering Prolixin dose. -To another staff patient said I have some kind of delusional disorder which is the 1st time marine underwriter has heard of this patient referring to actually having a psychiatric disorder. 10/28 Patient disclosed To marine underwriter that she think she has a delusional disorder and said that it is confusing to her since something is a delusion and some things are real; decided not to contest Marquis regarding 10/29: Pt is requesting prolixin level, A1c, lipids, and B12 labs. Reviewed medications to help with akathesia, will consider low dose ativan. PLAN: pt signed CV Q 15 minute checks Patient is on a?community Marquis?extended and in effect until Nov 11, 2021. Patient has a?guardian, her brother Kong Guillaume It is writers strong opinion that patient needs to remain on a Marquis order in order for her function in the community; it's also writers strong opinion that she continues to need a guardian as she has no insight into her condition (which is impaired even at baseline) and needs ongoing help in multiple areas in order to function in the community. 1.Schizophrenia, paranoid type (pt carries this dx) -LOWERED Prolixin Dec 17mg IM due on 10/26/21 (last dose of Prolixin Decanoate 25 mg IM received on 10/12/21); lowered to see if it can mitigate some of patient's reported TD/restlessness/akathisia -Propranolol 10mg qhs for EPS, help with sleep -patient on community Marquis and cannot refuse Prolixin -Patient refuses any meds to help migate symptoms and won't consider alternatives to Prolixin (such as Clozapine which is very low risk for TD, but risk to causes wt gain). -DC'd PO Prolixin due to c/o TD and akathesia (dc'd on 10/10); typically, overalap Prolixin PO with Decanoate? (Decanoate 25 mg Q 2/3 weeks is roughly equivalent to Prolixin p.o. 15-20 mg daily Prolixin Dec is listed on her Marquis (CANNOT REFUSE), reviewed by marine underwriter and specified by her guardian (literature reports decanoate q. 3 weeks or longer has been as effective as q.2 weeks which is something patient can discuss with outpatient provider but is something that may reduce side-effects and thus increase adherence) -DC'd 1:1 pt not intrusive or interfering with others patients treatment) 2. Left hand point tenderness anatomical snuff box Patient reports she has point tenderness on her left hand at the anatomical snuffbox which was present before admission; says has worsened; denies any hx of fall or other hand trauma. On examination patient point tenderness in left anatomical snuffbox; no tendern ess elsewhere -left hand/wrist xray unremarkable, no fracture; -pain decreased with ibuprofen I spent minutes with the patient and/or on the patient floor today, grea ter than?50% of which was spent counseling/coordinating care. Reason for contiued inpatient stay Substantial Risk for: inability to function and med/psych decompensation
[2021-10-29 19:30] VITALS: BP 144/80; PULSE 78
[2021-10-29] MEDS: Propranolol HCL 10 MG TABLET PO (19:41)
[2021-10-30] MEDS: Melatonin 3 MG TABLET PO ×2 (04:10→21:52)
[2021-10-30] MEDS: polyethylene glycoL 3350 17 GM POWD.PACK PO (04:11)
[2021-10-30] MEDS: Ibuprofen 600 MG TABLET PO (06:42)
[2021-10-30 10:15] LABS: Cholesterol 224 mg/dL; HDL Cholesterol 65 mg/dL; LDL Cholesterol Calculated 148 mg/dl; Triglycerides 59 mg/dL
[2021-10-30] MEDS: Acetaminophen 325 MG TABLET 650 MG PO (13:23)
--- NOTE | 2021-10-30 14:21 | HO.PSYCHPN ---
Subjective Subjective Date of Service: 10/30/21 Reason For Visit: SECTION 12, THOUGHTS TO HARM OTHERS Interim History: Patient seen and discussed with team. Patient evaluated this morning and upon interview she reports she is still struggling with akathesia, its awful, its a terrible feeling, has been pacing the halls. Says she doesnt want to increase propranolol due to low HR. Says she is concerned with her cholesterol, wants to resume vegan diet upon discharge. Reviewed labs, prolixin level is pending. In the milieu, patient is safe and appropriate in behavior, walking up and down halls with headphones. Denies SI/SIB/HI upon inquiry. Denies irritability or assaultive ideation. Says she feels safe. Medication Compliance: Yes Side effects from medications: Yes Attending Groups: Intermittent Review of Systems Acute medical concerns: No Medical Review of Systems: unchanged Mental Status Exam Mental Status Exam Narrative: Pt is alert and oriented; behavior calm, cooperative; less guarded, more willing to talk about herself; dressed in casual nightgown, appropriate, adequately groomed and with adequate hygiene; mood is described as alright and affect congruent and overall warmer, smiling at times;? eye contact is appropriate; Speech is normal rate, volume; no psychomotor retardation present; no TD observed but mild reported; pt dose have restless movements;? thought process is organized and goal directed; Thought content on treatment; denies any current delusional thinking; denies SI/HI or AVH;? Patients insight and judgment still impaired but improving and has shared that she thinks she has a delusional disorder Which carvalho a significant improvement in her insight; Judgment also improved as patient decided to not contest the guardian or Marquis order this year Diagnostics Vital Signs (24Hr): Vital Signs - 24 hr 10/29/21 19:30 Pulse Rate 78 Blood Pressure 144/80 H BMI result Body Mass Index 18.6 Labs Results: 09/22/21 17:48 09/22/21 17:48 Labs: Laboratory Results - last 48 hr 10/30/21 09:33 Triglycerides 59 Cholesterol 224 LDL Cholesterol, Calc 148 HDL Cholesterol 65 Imaging Radiology Impressions: ITS Impressions Hand X-Ray 10/27/21 14:31 IMPRESSION: Unremarkable appearance of the left hand. No focal abnormality in the region of concern. Medications Medications Current Medications Acetaminophen (Acetaminophen 325 Mg Tablet) 650 mg PO Q6H PRN PRN Reason: Headache/Pain Mild Scale (1-3) Last Admin: 10/30/21 13:23 Dose: 650 mg Documented by: Al Hydroxide/Mg Hydroxide (Magnesium Hydrox/Alum Hydrox 30 Ml Oral.Susp) 30 ml PO Q6H PRN PRN Reason: Heartburn/Nausea Fluphenazine Decanoate (Fluphenazine Decanoate 25 Mg/Ml 5 Ml Vial) 17 mg IM Q14D@0900 [facility] Last Admin: 10/26/21 09:02 Dose: 17 mg Documented by: Ibuprofen (Ibuprofen 600 Mg Tablet) 600 mg PO Q6H PRN PRN Reason: Pain, Mild (Pain Scale 1-3) Last Admin: 10/30/21 06:42 Dose: 600 mg Documented by: Magnesium Hydroxide (Milk Of Magnesia 30 Ml Oral.Susp) 30 ml PO DAILY PRN PRN Reason: Constipation Last Admin: 10/15/21 12:58 Dose: 30 ml Documented by: Melatonin (Melatonin 3 Mg Tablet) 3 mg PO BEDTIME PRN PRN Reason: CONTINUED insomnia Last Admin: 10/30/21 04:10 Dose: 3 mg Documented by: Melatonin (Melatonin 3 Mg Tablet) 3 mg PO BEDTIME SARABJIT Last Admin: 10/29/21 19:42 Dose: 3 mg Documented by: Pharmacy Consult (Consult Rx Perform Med Rec) 1 each MISCELLANE ONCE PRN PRN Reason: Consult order Polyethylene Glycol (Polyethylene Glycol 3350 17 Gm Powd.Pack) 17 gm PO BID PRN PRN Reason: Constipation Last Admin: 10/30/21 04:11 Dose: 17 gm Documented by: Propranolol HCl (Propranolol Hcl 10 Mg Tablet) 10 mg PO BEDTIME SARABJIT; Protocol Last Admin: 10/29/21 19:41 Dose: 10 mg Documented by: Saliva Substitute (Dry Mouth [place] 60 Ml [place]) 1 spray MUCOUS MEM Q2H PRN PRN Reason: Dry Mouth Last Admin: 10/21/21 19:31 Dose: 1 spray Documented by: Allergies Allergies Allergy/AdvReac Type Severity Reaction Status Date / Time cashew nut Allergy Severe ANAPHYLAXIS Verified 10/04/21 19:44 peanut [Peanut] Allergy Severe ANAPHALAXIS Verified 10/04/21 19:44 Assessment & Plan Assessment & Plan (1) Schizophrenia: Status: Chronic Code(s): F20.9 - Schizophrenia, unspecified Plan IMPRESSION: Patient is a 61-year-old female with history of Delusional disorder (r/o schizophrenia), on a community Marquis and with her brother as guardian, who presents via EMS following a wellness check by [facility] staff and police who found patient's apartment in a disheveled state and patient with paranoid delusions that her food was poisoned, there were bombs in the toilet and that [facility] staff was a part of the [place] secret police who were planning her demise, in the face of going off her? Prolixin Decanoate this past December.? On admission she denied any SI, HI, AVH or any delusional thinking; she also denied that any of the reported events or findings from [facility]'s wellness check were true and denied that she has a mental illness.? Patient refused to sign in and was on a 12 B.? Patient was willing to take Prolixin p.o. She lacks all insight. HOSPITAL COURSE: Patient continues to lack all insight and has become verbally aggressive physically posturing with menacing affect, intruding into staff's personal space, verbally harassing staff and making it difficult for staff to carry out work on the unit.? Patient's behaviors have become unsafe; she refuses to increase p.o. Prolixin and for staff and milieu safety will order Prolixin Decanoate 25 mg IM which is on her Marquis and which her guardian says patient needs and agrees she should get. -signed CV after talking with guardian; also agreed with Prolixin Decanoate -patient superficially polite but easily triggered and intense anger; remains with paranoid, persecutory delusions and some grandiosity 09/30 patient remains superficially polite; guarded.? She has not been challenging staff.? Patient reports she is tired but denies any symptoms; agrees to increasing Prolixin p.o. (which is on Marquis and cannot be refused) -Prolixin 25 mg decanoate is roughly equivalent to getting Prolixin 20 mg p.o. daily; additionally p.o. doses are overlapped for several weeks after restarting Decanoate.? Patient gets Decanoate every 2 weeks and literature typically uses q. 3 weeks for conversion so will titrate p.o. Prolixin to about 15 mg daily.? Discussed with patient who agrees 10/02 remains superficially polite; is guarded and continues to have paranoid, persecutory delusions 10/05 remains superficially polite; is guarded and continues to have paranoid, persecutory delusions but lessening a bit in intensity 10/07 remains superficially polite; is guarded; denies all psychiatric symptoms, though intermittently internally preoccupied; pt has denied paranoid, persecutory delusions to song writer despite expressing them to others. Patient complains of some visual changes and akathisia which she attributes to restarting Prolixin and says this is very common for her when she restarts it or has a dose increase. Of note, song writer does not notice any akathisia, tremor or other EPS symptoms however it's possible that patient may be experiencing a subclinical amount of EPS. 10/09Patient reports akathisia and tardive dyskinesia from the Prolixin. Patient shows song writer her mouth which she is moving and says she has some mouth and tongue movements. She c/o restlessness in her legs and is thus walking the hallways. To that end she asks if a.m. dose of Prolixin committee lowered to 2.5 mg to which song writer agrees. At this point it is difficult to say if patient is having actual tardive dyskinesia or if she is feigning TD to lower her p.o. Prolixin dose, which her guardian/brother has reported she may do. When looking at her mouth patient is clearly making it move and when distracted, mouth movements observed to by normal; similar observation made regarding akathesia; however it's possible that there could also be involuntarily mouth movent as well. Guardian says she has never had TD in the past. She does not want any additional medications to mitigate this possible side effect. Patient requests p.o. Prolixin to be discontinued and wants to just remain on the Decanoate. Equity Research Analyst agrees with this plan. While it is customary to overlap p.o. Prolixin with Decanoate, as it can take considerable time for Decanoate to reach steady state, it is however possible for decanoate to still become effective without p.o., though it will likely takes longer. 10/11 says TD and akathesia are significantly improved since dc'ing PO prolixin (none observed). She remains affable but guarded. Pt denies all psychiatric symptoms. She does not want to discuss events that occurred around admission or discuss hx diagnosis which she typically disputes, which makes it difficult to assess progress. Continue to rely on her guardians approximation of patients progress. However, off prolixin PO, patient might need to remain longer on unit; will discuss w/ guardian. 10/19 no change in presentation; no TD or akathisia observed; patient reports some mild intermittent tongue fasciculations but says it is much better. Remains amenable to treatment plan. Given patient's read a since will continue to reach out to guardian to help assess patient's stability 10/20Patient reports frustrating TD and restlessness. Yesterday patient said it had been minimal for several days however she reports the last night she had much trouble sleeping due to feeling her legs are restless and today she demonstrates that she has a hard time sitting still. Equity Research Analyst administered AIMS test: 10 Patient says that she is had the same symptoms for the past 5 years on Prolixin which have been about this level of intensity (patient has given some conflicting reports regarding his history and the week prior patient said that her history only included TD/akathisia at the initiation or restarting of Prolixin but that it eventually resolved on its own). Equity Research Analyst reviewed medication options and listed the medications she has tried or considered reporting they are either ineffective, cause weight gain or also caused TD and does not want to switch meds. She does not want any medication to ameliorate the symptoms including Ingrezza or propranolol, saying she rather tolerate these symptoms than have to take another medication. Equity Research Analyst said he would discuss this with her brother/guardian. However patient agrees to remain on this medication going forward. Of note, song writer observed tobias TD symptoms during aims test even when distracted by other tasks. TD does wax and wane. 10/21 no insight; wants off meds due to med side-effect of TD and restlessness. other providers whov'e had her in past remember some mild TD; song writer and staff speculate some of her symptoms may be exaggerated for effect, but as mentioned she has been observed with symptoms even when perceived to be alone. 10/24 patient reports she is miserable with medication side effects of slowed speech slow, slurred words, feeling drowsy. Today she did not complain of TD or akathisia but the opposite. Of note, patient did have slowed speech when speaking with song writer and slow movements of her body, however moments earlier when she was talking with social sciences professor in the hallway she was using normal speech and there was no psychomotor retardation. Again song writer agrees that there is some amount of TD/akathisia or experience of restlessness and her body however these and other symptoms seem to be exaggerated in order to make a case for getting off Prolixin as the symptoms seem to vacillate between moderate/severe to absent depending on with whom she is speaking. Patient continues to refuse any other medications to ameliorate symptoms; she also refuses to consider any other antipsychotics that may have less side effects. Patient does not have any insight into her history of behaviors or delusions and currently, cannot accurately reflect on whether she ultimately enjoyed her life off medications. Equity Research Analyst has discussed this case with 2 other psychiatrists who have known patient over the years and who report that off medications she is floridly psychotic and on medication she has been able to her life at some level. Given this collateral information as well as song writer's own observations when patient was 1st admitted, it remains song writer's opinion that off medications and without significant help in the community, including a guardian, she will end up homeless and terrified. -will organized family meeting with social sciences professor and Kong, her brother/guardian -patient is due for her 3rd installment of Prolixin Decanoate; initially it was hoped she could perhaps discharge soon after she received this 3rd dose. However, given her poor insight, her adamant, persistent request to have medications discontinued, and her guardians report that once she becomes stable, she feels and expresses the need to be on medications, it is song writer's opinion that if patient were to be discharged at this time she would very quickly decompensate and be unable to function in the community and end up homeless, hungry, scared and overwhelmed by her delusions. Guardian fully agrees. For patient's safety, she needs to remain on the unit even after getting her 3rd dose of Prolixin Decanoate until she returns to her minimal baseline where she accepts the need for the medication. Regarding medication side effects, as mentioned above patient likely has some amount of TD and perhaps restlessness however patient seems to exaggerate her symptoms depending on her audience. 10/27 patient says some minor reduction in TD/restlessness since lowering Prolixin dose. -To another staff patient said I have some kind of delusional disorder which is the 1st time song writer has heard of this patient referring to actually having a psychiatric disorder. 10/28 Patient disclosed To song writer that she think she has a delusional disorder and said that it is confusing to her since something is a delusion and some things are real; decided not to contest Marquis regarding 10/29: Pt is requesting prolixin level, A1c, lipids, and B12 labs. Reviewed medications to help with akathesia, will consider low dose ativan. 10/30: Pt reports she is open to re-trialing ativan 0.25 mg for akathesia, will start 0.25 mg Q4H PRN. Reviewed risks and benefits. Will order orthopedic consult due to snuffbox tenderness on L hand. PLAN: pt signed CV Q 15 minute checks Patient is on a?community Marquis?extended and in effect until Nov 11, 2021. Patient has a?guardian, her brother Kong Guillaume It is writers strong opinion that patient needs to remain on a Marquis order in order for her function in the community; it's also writers strong opinion that she continues to need a guardian as she has no insight into her condition (which is impaired even at baseline) and needs ongoing help in multiple areas in order to function in the community. 1.Schizophrenia, paranoid type (pt carries this dx) -LOWERED Prolixin Dec 17mg IM due on 10/26/21 (last dose of Prolixin Decanoate 25 mg IM received on 10/12/21); lowered to see if it can mitigate some of patient's reported TD/restlessness/akathisia -Propranolol 10mg qhs for EPS, help with sleep -patient on community Marquis and cannot refuse Prolixin -Patient refuses any meds to help migate symptoms and won't consider alternatives to Prolixin (such as Clozapine which is very low risk for TD, but risk to causes wt gain). -DC'd PO Prolixin due to c/o TD and akathesia (dc'd on 10/10); typically, overalap Prolixin PO with Decanoate? (Decanoate 25 mg Q 2/3 weeks is roughly equivalent to Prolixin p.o. 15-20 mg daily Prolixin Dec is listed on her Marquis (CANNOT REFUSE), reviewed by song writer and specified by her guardian (literature reports decanoate q. 3 weeks or longer has been as effective as q.2 weeks which is something patient can discuss with outpatient provider but is something that may reduce side-effects and thus increase adherence) -DC'd 1:1 pt not intrusive or interfering with others patients treatment) 2. Left hand point tenderness anatomical snuff box Patient reports she has point tenderness on her left hand at the anatomical snuffbox which was present before admission; says has worsened; denies any hx of fall or other hand trauma. On examination patient point tenderness in left anatomical snuffbox; no tenderness elsewhere -left hand/wrist xray unremarkable, no fracture; -pain decreased with ibuprofen I spent minutes with the patient and/or on the patient floor today, greater than?50% of which was spent counseling/coordinating care. Reason for contiued inpatient stay Substantial Risk for: med/psych decompensation
[2021-10-30 21:45] VITALS: BP 136/86; PULSE 60
[2021-10-30] MEDS: Propranolol HCL 10 MG TABLET PO (21:51)
[2021-10-30] MEDS: LORazepam 0.5 MG TABLET 0.25 MG PO (21:52)
[2021-10-31] MEDS: LORazepam 0.5 MG TABLET 0.25 MG PO ×4 (06:50→19:52)
[2021-10-31] MEDS: Acetaminophen 325 MG TABLET 650 MG PO ×2 (06:51→14:56)
[2021-10-31 07:33] LABS: Estimated Average Glucose 103 mg/dL; Hemoglobin A1c % 5.2 %
[2021-10-31 08:53] LABS: Vitamin B12 689 pg/mL (200-900)
--- NOTE | 2021-10-31 15:23 | P.CONOP_ITS ---
History of Present Illness HPI Consult date: 10/31/21 Chief complaint: SECTION 12, THOUGHTS TO HARM OTHERS Narrative: We in orthopedics were asked to consult regarding this patient's left wrist pain. The patient reports that she has had left wrist pain on the radial aspect of the left wrist since about July 2021. She denies any known injury. She denies having problems with numbness and tingling. 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 [facility] Past Medical History Medical History (Updated 10/31/21 @ 15:27 by Maki Foss MD) Delusions Hyperprolactinemia Hypothyroidism Paranoid Pituitary adenoma Schizophrenia Schizophrenia Social History Social History Household Members: None Housing: House Do you presently have visiting nurse or other home services: No Patient Tobacco Use Status: Never used Tobacco Smoked in Last 30 Days: No Patient Interested in Nicotine Replacement: No Patient Given Instructions on How to Stop Smoking: No Second Hand Smoke Exposure: No Use of substances other than those prescribed or required for medical reasons: No Currently Displaying Signs/Symptoms of Drug Intoxication Withdrawal: No Any prior treatment program specific to substance use: No Have you been hit, kicked, punched, or otherwise hurt by someone within the past year? If so, by whom?: No Do you feel safe in your current relationship?: No Is there a partner from a previous relationship who is making you feel unsafe now?: No Are you made to feel afraid or neglected: No Advance Directives: No Advance Directives Information Provided: No Do you have thoughts of harming others: None Do you have a plan to hurt others: No Plan Recently lost weight without trying: Yes How much weight loss: Unsure Eating poorly because of decreased appetite: Yes Nutrition screen score: 5 Nutrition Risks: Poor intake 0-25% >4 days Patient : No : No Poor oral hygiene: No service: No Sexual orientation: Did not discuss Meds Allergies Allergy/AdvReac Type Severity Reaction Status Date / Time cashew nut Allergy Severe ANAPHYLAXIS Verified 10/04/21 19:44 peanut [Peanut] Allergy Severe ANAPHALAXIS Verified 10/04/21 19:44 Active Medications: Current Medications Acetaminophen (Acetaminophen 325 Mg Tablet) 650 mg PO Q6H PRN PRN Reason: Headache/Pain Mild Scale (1-3) Last Admin: 10/31/21 14:56 Dose: 650 mg Documented by: Al Hydroxide/Mg Hydroxide (Magnesium Hydrox/Alum Hydrox 30 Ml Oral.Susp) 30 ml PO Q6H PRN PRN Reason: Heartburn/Nausea Fluphenazine Decanoate (Fluphenazine Decanoate 25 Mg/Ml 5 Ml Vial) 17 mg IM Q14D@0900 [facility] Last Admin: 10/26/21 09:02 Dose: 17 mg Documented by: Ibuprofen (Ibuprofen 600 Mg Tablet) 600 mg PO Q6H PRN PRN Reason: Pain, Mild (Pain Scale 1-3) Last Admin: 10/30/21 06:42 Dose: 600 mg Documented by: Lorazepam (Lorazepam 0.5 Mg Tablet) 0.25 mg PO Q4H PRN PRN Reason: akathesia Last Admin: 10/31/21 14:56 Dose: 0.25 mg Documented by: Magnesium Hydroxide (Milk Of Magnesia 30 Ml Oral.Susp) 30 ml PO DAILY PRN PRN Reason: Constipation Last Admin: 10/15/21 12:58 Dose: 30 ml Documented by: Melatonin (Melatonin 3 Mg Tablet) 3 mg PO BEDTIME PRN PRN Reason: CONTINUED insomnia Last Admin: 10/30/21 04:10 Dose: 3 mg Documented by: Melatonin (Melatonin 3 Mg Tablet) 3 mg PO BEDTIME SARABJIT Last Admin: 10/30/21 21:52 Dose: 3 mg Documented by: Pharmacy Consult (Consult Rx Perform Med Rec) 1 each MISCELLANE ONCE PRN PRN Reason: Consult order Polyethylene Glycol (Polyethylene Glycol 3350 17 Gm Powd.Pack) 17 gm PO BID PRN PRN Reason: Constipation Last Admin: 10/30/21 04:11 Dose: 17 gm Documented by: Propranolol HCl (Propranolol Hcl 10 Mg Tablet) 10 mg PO BEDTIME SARABJIT; Protocol Last Admin: 10/30/21 21:51 Dose: 10 mg Documented by: Saliva Substitute (Dry Mouth [place] 60 Ml [place]) 1 spray MUCOUS MEM Q2H PRN PRN Reason: Dry Mouth Last Admin: 10/21/21 19:31 Dose: 1 spray Documented by: Home Medications Medication Instructions Recorded Confirmed Last Taken Type fluphenazine 25 mg IM Q2W 09/22/21 09/22/21 Unknown History decanoate 25 mg/mL injection solution Physical Exam Verdana 4l Vital Signs: Verdana 4d Verdana 4d Vital Signs: Verdana 4d Verdana 4Bd Last Vital Signs Verdana 4d Heating Worker New 4d Heating Worker New 4d Temp 97.6 F 10/26/21 18:49 Heating Worker New 4d Pulse 60 10/30/21 21:45 Heating Worker New 4d Resp 16 10/26/21 18:49 BP 136/86 10/30/21 21:45 Pulse Ox 100 10/26/21 18:49 BMI result Body Mass Index 18.6 Const: General: cooperative, healthy appearing and no acute distress Orientation/consciousness: oriented to person HENMT: Head: Yes normocephalic and Yes atraumatic Eyes: EOM: EOMs intact bilaterally Resp: Effort & Inspection: normal respiratory effort and able to speak in complete sentences Cardio: Jugular venous distension: no JVD Skin: General skin exam: turgor normal Rashes: no rashes Neuro: General: oriented to person Extrem: Other: Evaluation of left Upper Extremity: Neuro: Median, ulnar, radial nerves motor and sensory intact. Vascular: Cap refill brisk. ROM: Can bring fingers closed to a fist and back out to full or nearly full extension. Can oppose thumb to fingertips Skin: No lacerations or abrasions. General: No eccymosis. No erythema or evidence of infection. She is most tender to palpation over the 1st dorsal compartment tendons as they pass over the radial styloid. She has a positive Emilee test on the left and a negative Emilee test on the right. No snuffbox or scaphoid tubercle tenderness. No tenderness about the basal joint of the thumb or MCP joint of the thumb which was stable on exam. She had good active flexion and extension and range of motion about the thumb. No locking or catching. No A1 nazario tenderness. Radiographs: Three views of the left wrist plus a scaphoid view were reviewed by me today and show no fractures or dislocations. Psych: Attitude: cooperative Results Labs Result Diagrams: 09/22/21 17:48 09/22/21 17:48 Labs: H & H 09/22/21 Range/Units 17:48 Hgb 14.0 (12.0-16.0) g/dl Hct 41.1 (37.0-47.0) % All other labs normal. Assessment and Plan (1) Closed de Quervain's fracture of left wrist: Status: Acute Plan Assessment and plan: 1. Left de Quervain tenosynovitis I educated her about this condition I talked to her about the importance of activity modification She would benefit from a comfort cool Velcro thumb spica splint to be worn with daytime activities. She would also likely benefit from a steroid injection into the 1st dorsal compartment. I talked to her about these issues and she is interested in having a steroid injection. She explained to me that they do have a procedure room on the 5th floor or this could be done. I will talk to her physician in an effort to coordinate the above plan. Procedures Date of Service Date of Service: 10/31/21
--- NOTE | 2021-10-31 16:49 | HO.PSYCHPN ---
Subjective Subjective Date of Service: 10/31/21 Reason For Visit: SECTION 12, THOUGHTS TO HARM OTHERS Interim History: Patient reports some continued TD but feels it is overall improved with lower dose of Prolixin Decanoate; she also says she has periodic hand tapping which she groups into restlessness which is bothersome. She did sleep last night with Ativan and propranolol. Patient does not want any additional medication changes to mitigate her experience. However she asks for holding off on signing Marquis order with new Prolixin Decanoate limit of 17.5 mg until Prolixin level gets back. Mental Status Exam Mental Status Exam Narrative: Pt is alert and oriented; behavior calm, cooperative; less guarded, more willing to talk about herself; dressed in casual nightgown, appropriate, adequately groomed and with adequate hygiene; mood is described as fine and affect congruent and overall warmer, smiling at times;? eye contact is appropriate; Speech is normal rate, volume; no psychomotor retardation present; no TD observed but mild reported; pt dose have restless movements;? thought process is organized and goal directed; Thought content on treatment; denies any current delusional thinking; denies SI/HI or AVH;? Patients insight and judgment still impaired but improving and has shared that she thinks she has a delusional disorder Which carvalho a significant improvement in her insight; Judgment also improved as patient decided to not contest the guardian or Marquis order this year Diagnostics Vital Signs (24Hr): Vital Signs - 24 hr 10/30/21 21:45 Pulse Rate 60 Blood Pressure 136/86 BMI result Body Mass Index 18.6 Labs Results: 09/22/21 17:48 09/22/21 17:48 Labs: Laboratory Results - last 48 hr 10/30/21 10/30/21 10/30/21 09:33 09:33 09:33 Estimat Average Glucose 103 Hemoglobin A1c % 5.2 Triglycerides 59 Cholesterol 224 LDL Cholesterol, Calc 148 HDL Cholesterol 65 Vitamin B12 689 Imaging Radiology Impressions: ITS Impressions Hand X-Ray 10/27/21 14:31 IMPRESSION: Unremarkable appearance of the left hand. No focal abnormality in the region of concern. Wrist X-Ray 10/31/21 10:50 IMPRESSION: No abnormal findings Medications Medications Current Medications Acetaminophen (Acetaminophen 325 Mg Tablet) 650 mg PO Q6H PRN PRN Reason: Headache/Pain Mild Scale (1-3) Last Admin: 10/31/21 14:56 Dose: 650 mg Documented by: Al Hydroxide/Mg Hydroxide (Magnesium Hydrox/Alum Hydrox 30 Ml Oral.Susp) 30 ml PO Q6H PRN PRN Reason: Heartburn/Nausea Fluphenazine Decanoate (Fluphenazine Decanoate 25 Mg/Ml 5 Ml Vial) 17 mg IM Q14D@0900 [facility] Last Admin: 10/26/21 09:02 Dose: 17 mg Documented by: Ibuprofen (Ibuprofen 600 Mg Tablet) 600 mg PO Q6H PRN PRN Reason: Pain, Mild (Pain Scale 1-3) Last Admin: 10/30/21 06:42 Dose: 600 mg Documented by: Lorazepam (Lorazepam 0.5 Mg Tablet) 0.25 mg PO Q4H PRN PRN Reason: akathesia Last Admin: 10/31/21 14:56 Dose: 0.25 mg Documented by: Magnesium Hydroxide (Milk Of Magnesia 30 Ml Oral.Susp) 30 ml PO DAILY PRN PRN Reason: Constipation Last Admin: 10/15/21 12:58 Dose: 30 ml Documented by: Melatonin (Melatonin 3 Mg Tablet) 3 mg PO BEDTIME PRN PRN Reason: CONTINUED insomnia Last Admin: 10/30/21 04:10 Dose: 3 mg Documented by: Melatonin (Melatonin 3 Mg Tablet) 3 mg PO BEDTIME [facility] Last Admin: 10/30/21 21:52 Dose: 3 mg Documented by: Pharmacy Consult (Consult Rx Perform Med Rec) 1 each MISCELLANE ONCE PRN PRN Reason: Consult order Polyethylene Glycol (Polyethylene Glycol 3350 17 Gm Powd.Pack) 17 gm PO BID PRN PRN Reason: Constipation Last Admin: 10/30/21 04:11 Dose: 17 gm Documented by: Propranolol HCl (Propranolol Hcl 10 Mg Tablet) 10 mg PO BEDTIME [facility]; Protocol Last Admin: 10/30/21 21:51 Dose: 10 mg Documented by: Saliva Substitute (Dry Mouth Cuba 60 Ml [place]) 1 spray MUCOUS MEM Q2H PRN PRN Reason: Dry Mouth Last Admin: 10/21/21 19:31 Dose: 1 spray Documented by: Allergies Allergies Allergy/AdvReac Type Severity Reaction Status Date / Time cashew nut Allergy Severe ANAPHYLAXIS Verified 10/04/21 19:44 peanut [Peanut] Allergy Severe ANAPHALAXIS Verified 10/04/21 19:44 Assessment & Plan Assessment & Plan (1) Closed de Quervain's fracture of left wrist: Status: Acute Code(s): S62.002A - Unspecified fracture of navicular [scaphoid] bone of left wrist, initial encounter for closed fracture (2) Schizophrenia: Status: Chronic Code(s): F20.9 - Schizophrenia, unspecified Plan IMPRESSION: Patient is a 61-year-old female with history of Delusional disorder (r/o schizophrenia), on a community Marquis and with her brother as guardian, who presents via EMS following a wellness check by [facility] staff and police who found patient's apartment in a disheveled state and patient with paranoid delusions that her food was poisoned, there were bombs in the toilet and that [facility] staff was a part of the [place] secret police who were planning her demise, in the face of going off her? Prolixin Decanoate this past December.? On admission she denied any SI, HI, AVH or any delusional thinking; she also denied that any of the reported events or findings from [facility]'s wellness check were true and denied that she has a mental illness.? Patient refused to sign in and was on a 12 B.? Patient was willing to take Prolixin p.o. She lacks all insight. HOSPITAL COURSE: Patient continues to lack all insight and has become verbally aggressive physically posturing with menacing affect, intruding into staff's personal space, verbally harassing staff and making it difficult for staff to carry out work on the unit.? Patient's behaviors have become unsafe; she refuses to increase p.o. Prolixin and for staff and milieu safety will order Prolixin Decanoate 25 mg IM which is on her Marquis and which her guardian says patient needs and agrees she should get. -signed CV after talking with guardian; also agreed with Prolixin Decanoate -patient superficially polite but easily triggered and intense anger; remains with paranoid, persecutory delusions and some grandiosity 09/30 patient remains superficially polite; guarded.? She has not been challenging staff.? Patient reports she is tired but denies any symptoms; agrees to increasing Prolixin p.o. (which is on Marquis and cannot be refused) -Prolixin 25 mg decanoate is roughly equivalent to getting Prolixin 20 mg p.o. daily; additionally p.o. doses are overlapped for several weeks after restarting Decanoate.? Patient gets Decanoate every 2 weeks and literature typically uses q. 3 weeks for conversion so will titrate p.o. Prolixin to about 15 mg daily.? Discussed with patient who agrees 10/02 remains superficially polite; is guarded and continues to have paranoid, persecutory delusions 10/05 remains superficially polite; is guarded and continues to have paranoid, persecutory delusions but lessening a bit in intensity 10/07 remains superficially polite; is guarded; denies all psychiatric symptoms, though intermittently internally preoccupied; pt has denied paranoid, persecutory delusions to video game script writer despite expressing them to others. Patient complains of some visual changes and akathisia which she attributes to restarting Prolixin and says this is very common for her when she restarts it or has a dose increase. Of note, video game script writer does not notice any akathisia, tremor or other EPS symptoms however it's possible that patient may be experiencing a subclinical amount of EPS. 10/09Patient reports akathisia and tardive dyskinesia from the Prolixin.? Patient shows video game script writer her mouth which she is moving and says she has some mouth and tongue movements.? She c/o restlessness in her legs and is thus walking the hallways.? To that end she asks if a.m. dose of Prolixin committee lowered to 2.5 mg to which video game script writer agrees.? At this point it is difficult to say if patient is having actual tardive dyskinesia or if she is feigning TD to lower her p.o. Prolixin dose, which her guardian/brother has reported she may do.? When looking at her mouth patient is clearly making it move and when distracted, mouth movements observed to by normal; similar observation made regarding akathesia; however it's possible that there could also be involuntarily mouth movent as well. Guardian says she has never had TD in the past.? She does not want any additional medications to mitigate this possible side effect.? Patient requests p.o. Prolixin to be discontinued and wants to just remain on the Decanoate.? Vp Ancillary agrees with this plan.? While it is customary to overlap p.o. Prolixin with Decanoate, as it can take considerable time for Decanoate to reach steady state, it is however possible for decanoate to still become effective without p.o., though it will likely takes longer. 10/11 says TD and akathesia are significantly improved since dc'ing PO prolixin (none observed). She remains affable but guarded. Pt denies all psychiatric symptoms. She does not want to discuss events that occurred around admission or discuss hx diagnosis which she typically disputes, which makes it difficult to assess progress. Continue to rely on her guardians approximation of patients progress. However, off prolixin PO, patient might need to remain longer on unit; will discuss w/ guardian. 10/19 no change in presentation; no TD or akathisia observed; patient reports some mild intermittent tongue fasciculations but says it is much better.? Remains amenable to treatment plan.? Given patient's read a since will continue to reach out to guardian to help assess patient's stability 10/20Patient reports frustrating TD and restlessness.? Yesterday patient said it had been minimal for several days however she reports the last night she had much trouble sleeping due to feeling her legs are restless and today she demonstrates that she has a hard time sitting still.? Vp Ancillary administered AIMS test: 10 Patient says that she is had the same symptoms for the past 5 years on Prolixin which have been about this level of intensity (patient has given some conflicting reports regarding his history and the week prior patient said that her history only included TD/akathisia at the initiation or restarting of Prolixin but that it eventually resolved on its own).? Vp Ancillary reviewed medication options and listed the medications she has tried or considered reporting they are either ineffective, cause weight gain or also caused TD and does not want to switch meds.? She does not want any medication to ameliorate the symptoms including Ingrezza or propranolol, saying she rather tolerate these symptoms than have to take another medication.? Vp Ancillary said he would discuss this with her brother/guardian.? However patient agrees to remain on this medication going forward.? Of note, video game script writer observed tobias TD symptoms during aims test even when distracted by other tasks. TD does wax and wane. 10/21 no insight; wants off meds due to med side-effect of TD and restlessness. other providers whov'e had her in past remember some mild TD; video game script writer and staff speculate some of her symptoms may be exaggerated for effect, but as mentioned she has been observed with symptoms even when perceived to be alone. 10/24 patient reports she is miserable with medication side effects of slowed speech slow, slurred words, feeling drowsy.? Today she did not complain of TD or akathisia but the opposite.? Of note, patient did have slowed speech when speaking with video game script writer and slow movements of her body, however moments earlier when she was talking with social service director in the hallway she was using normal speech and there was no psychomotor retardation.? Again video game script writer agrees that there is some amount of TD/akathisia or experience of restlessness and her body however these and other symptoms seem to be exaggerated in order to make a case for getting off Prolixin as the symptoms seem to vacillate between moderate/severe to absent depending on with whom she is speaking.? Patient continues to refuse any other medications to ameliorate symptoms; she also refuses to consider any other antipsychotics that may have less side effects. Patient does not have any insight into her history of behaviors or delusions and currently, cannot accurately reflect on whether she ultimately enjoyed her life off medications. Vp Ancillary has discussed this case with 2 other psychiatrists who have known patient over the years and who report that off medications she is floridly psychotic and on medication she has been able to her life at some level. Given this collateral information as well as video game script writer's own observations when patient was 1st admitted, it remains video game script writer's opinion that off medications and without significant help in the community, including a guardian, she will end up homeless and terrified. -will organized family meeting with social service director and Kong, her brother/guardian -patient is due for her 3rd installment of Prolixin Decanoate; initially it was hoped she could perhaps discharge soon after she received this 3rd dose.? However,? given her poor insight, her adamant, persistent request to have medications discontinued, and her guardians report that once she becomes stable, she feels and expresses the need to be on medications, it is video game script writer's opinion that if patient were to be discharged at this time she would very quickly decompensate and be unable to function in the community and end up homeless, hungry, scared and overwhelmed by her delusions.? Guardian fully agrees.? For patient's safety, she needs to remain on the unit even after getting her 3rd dose of Prolixin Decanoate until she returns to her minimal baseline where she accepts the need for the medication.? Regarding? medication side effects, as mentioned above patient likely has some amount of TD and perhaps restlessness however patient seems to exaggerate her symptoms depending on her audience. 2/ patient says some minor reduction in TD/restlessness since lowering Prolixin dose. -To another staff patient said I have some kind of delusional disorder which is the 1st time video game script writer has heard of this patient referring to actually having? a psychiatric disorder.? 10/28 Patient disclosed To video game script writer that she think she has a delusional disorder and said that it is confusing to her since something is a delusion and some things are real; decided not to contest Marquis regarding 10/29: Pt is requesting prolixin level, A1c, lipids, and B12 labs. Reviewed medications to help with akathesia, will consider low dose ativan. 10/31 discussed labs with borderline cholesterol levels; patient does not want any medication but will work on diet and exercise to lower cholesterol; also discussed wrist tenderness which was diagnosed as Left de Quervain tenosynovitis. Orthopedist Dr. Maki Foss will follow up/tx with patient (see below). Patient asking for hold off on submitting documents for Marquis order until Prolixin level returns; video game script writer will discuss with development spec and guardian as well as documentation is timely and lab results may take several days or longer to return PLAN: pt signed CV Q 15 minute checks Patient is on a?community Marquis?extended and in effect until Nov 11, 2021. Patient has a?guardian, her brother Kong Guillaume It is writers strong opinion that patient needs to remain on a Marquis order in order for her function in the community; it's also writers strong opinion that she continues to need a guardian as she has no insight into her condition (which is impaired even at baseline) and needs ongoing help in multiple areas in order to function in the community. 1.Schizophrenia, paranoid type (pt carries this dx) -LOWERED Prolixin Dec 17mg IM due on 10/26/21 (last dose of Prolixin Decanoate 25 mg IM received on 10/12/21); lowered to see if it can mitigate some of patient's reported TD/restlessness/akathisia -Propranolol 10mg qhs for EPS, help with sleep -patient on community Marquis and cannot refuse Prolixin -Patient? refuses any meds to help migate symptoms and won't consider alternatives to Prolixin (such as Clozapine which is very low risk for TD, but risk to causes wt gain). -DC'd PO Prolixin due to c/o TD and akathesia (dc'd on 10/10); typically, overalap Prolixin PO with Decanoate? (Decanoate 25 mg Q 2/3 weeks is roughly equivalent to Prolixin p.o. 15-20 mg daily Prolixin Dec is listed on her Marquis (CANNOT REFUSE), reviewed by video game script writer and specified by her guardian (literature reports decanoate q. 3 weeks or longer has been as effective as q.2 weeks which is something patient can discuss with outpatient provider but is something that may reduce side-effects and thus increase adherence) -DC'd 1:1 pt not intrusive or interfering with others patients treatment) 2.?Left de Quervain tenosynovitis (Left hand anatomical snuff box tenderness) Patient reports she has point tenderness on her left hand at the anatomical snuffbox which was present before admission; says has worsened; denies any hx of fall or other hand trauma.? On examination patient point tenderness in left anatomical snuffbox; no tenderness elsewhere -left hand/wrist xray unremarkable, no fracture; -pain decreased with ibuprofen -Ortho consult got another set of images and dx Left de Quervain tenosynovitis who writes: 'I educated her about this condition I talked to her about the importance of activity modification She would benefit from a comfort cool Velcro thumb spica splint to be worn with daytime activities. She would also likely benefit from a steroid injection into the 1st dorsal compartment. I talked to her about these issues and she is interested in having a steroid injection. She explained to me that they do have a procedure room on the 5th floor or this could be done.' I spent minutes with the patient and/or on the patient floor today, greater than?50% of which was spent counseling/coordinating care. Reason for contiued inpatient stay Substantial Risk for: inability to function and rapid decompensation
[2021-10-31 18:00] VITALS: BP 154/88
[2021-10-31] MEDS: Propranolol HCL 10 MG TABLET PO (19:53)
[2021-10-31] MEDS: Melatonin 3 MG TABLET PO (19:53)
[2021-11-01] MEDS: Melatonin 3 MG TABLET PO ×2 (03:48→21:32)
[2021-11-01] MEDS: Acetaminophen 325 MG TABLET 650 MG PO ×2 (08:27→16:01)
[2021-11-01] MEDS: polyethylene glycoL 3350 17 GM POWD.PACK PO (09:35)
--- NOTE | 2021-11-01 10:35 | P.PNPSI_ITS ---
Subjective Subjective Date of Service: 11/01/21 Reason For Visit: SECTION 12, THOUGHTS TO HARM OTHERS Interim History: pt reports she's the same; senior underwriter explained Prolixin level need to file documents but that an amendment can be made if her Prolixin level comes back to high. Patient says she wants to remain here on the unit until that happens to which senior underwriter said this can be discussed further. Patient otherwise has no complaints Mental Status Exam Mental Status Exam Narrative: Pt is alert and oriented; behavior calm, cooperative; less guarded, more willing to talk about herself; dressed in casual nightgown, appropriate, adequately groomed and with adequate hygiene; mood is described as good and affect congruent and overall warmer, smiling at times;? eye contact is appropriate; Speech is normal rate, volume; no psychomotor retardation present; no TD observed but mild reported; pt does have restless movements;? thought process is organized and goal directed; Thought content on treatment; denies any current delusional thinking; denies SI/HI or AVH;? Patients insight and judgment still impaired but improving and has shared that she has a delusional disorder which carvalho a significant improvement in her insight; Judgment also improved as patient decided to not contest the guardian or Marquis order this year Diagnostics Vital Signs (24Hr): Vital Signs - 24 hr 10/31/21 18:00 Blood Pressure 154/88 H BMI result Body Mass Index 18.6 Labs Results: 09/22/21 17:48 09/22/21 17:48 Labs: Laboratory Results - last 48 hr 10/30/21 10/30/21 09:33 09:33 Estimat Average Glucose 103 Hemoglobin A1c % 5.2 Vitamin B12 689 Imaging Radiology Impressions: ITS Impressions Hand X-Ray 10/27/21 14:31 IMPRESSION: Unremarkable appearance of the left hand. No focal abnormality in the region of concern. Wrist X-Ray 10/31/21 10:50 IMPRESSION: No abnormal findings Medications Medications Current Medications Acetaminophen (Acetaminophen 325 Mg Tablet) 650 mg PO Q6H PRN PRN Reason: Headache/Pain Mild Scale (1-3) Last Admin: 11/01/21 08:27 Dose: 650 mg Documented by: Al Hydroxide/Mg Hydroxide (Magnesium Hydrox/Alum Hydrox 30 Ml Oral.Susp) 30 ml PO Q6H PRN PRN Reason: Heartburn/Nausea Fluphenazine Decanoate (Fluphenazine Decanoate 25 Mg/Ml 5 Ml Vial) 17 mg IM Q14D@0900 [facility] Last Admin: 10/26/21 09:02 Dose: 17 mg Documented by: Ibuprofen (Ibuprofen 600 Mg Tablet) 600 mg PO Q6H PRN PRN Reason: Pain, Mild (Pain Scale 1-3) Last Admin: 10/30/21 06:42 Dose: 600 mg Documented by: Lorazepam (Lorazepam 0.5 Mg Tablet) 0.25 mg PO Q4H PRN PRN Reason: akathesia Last Admin: 10/31/21 19:52 Dose: 0.25 mg Documented by: Magnesium Hydroxide (Milk Of Magnesia 30 Ml Oral.Susp) 30 ml PO DAILY PRN PRN Reason: Constipation Last Admin: 10/15/21 12:58 Dose: 30 ml Documented by: Melatonin (Melatonin 3 Mg Tablet) 3 mg PO BEDTIME PRN PRN Reason: CONTINUED insomnia Last Admin: 11/01/21 03:48 Dose: 3 mg Documented by: Melatonin (Melatonin 3 Mg Tablet) 3 mg PO BEDTIME SARABJIT Last Admin: 10/31/21 19:53 Dose: 3 mg Documented by: Pharmacy Consult (Consult Rx Perform Med Rec) 1 each MISCELLANE ONCE PRN PRN Reason: Consult order Polyethylene Glycol (Polyethylene Glycol 3350 17 Gm Powd.Pack) 17 gm PO BID PRN PRN Reason: Constipation Last Admin: 11/01/21 09:35 Dose: 17 gm Documented by: Propranolol HCl (Propranolol Hcl 10 Mg Tablet) 10 mg PO BEDTIME SARABJIT; Protocol Last Admin: 10/31/21 19:53 Dose: 10 mg Documented by: Saliva Substitute (Dry Mouth Addy 60 Ml Addy) 1 spray MUCOUS MEM Q2H PRN PRN Reason: Dry Mouth Last Admin: 10/21/21 19:31 Dose: 1 spray Documented by: Allergies Allergies Allergy/AdvReac Type Severity Reaction Status Date / Time cashew nut Allergy Severe ANAPHYLAXIS Verified 10/04/21 19:44 peanut [Peanut] Allergy Severe ANAPHALAXIS Verified 10/04/21 19:44 Assessment & Plan Assessment & Plan (1) Closed de Quervain's fracture of left wrist: Status: Acute Code(s): S62.002A - Unspecified fracture of navicular [scaphoid] bone of left wrist, initial encounter for closed fracture (2) Schizophrenia: Status: Chronic Code(s): F20.9 - Schizophrenia, unspecified Plan IMPRESSION: Patient is a 61-year-old female with history of Delusional disorder (r/o schizophrenia), on a community Marquis and with her brother as guardian, who presents via EMS following a wellness check by [facility] staff and police who found patient's apartment in a disheveled state and patient with paranoid delusions that her food was poisoned, there were bombs in the toilet and that [facility] staff was a part of the [employer] police who were planning her demise, in the face of going off her? Prolixin Decanoate this past December.? On admission she denied any SI, HI, AVH or any delusional thinking; she also denied that any of the reported events or findings from [facility]'s wellness check were true and denied that she has a mental illness.? Patient refused to sign in and was on a 12 B.? Patient was willing to take Prolixin p.o. She lacks all insight. HOSPITAL COURSE: Patient continues to lack all insight and has become verbally aggressive physically posturing with menacing affect, intruding into staff's personal space, verbally harassing staff and making it difficult for staff to carry out work on the unit.? Patient's behaviors have become unsafe; she refuses to increase p.o. Prolixin and for staff and milieu safety will order Prolixin Decanoate 25 mg IM which is on her Marquis and which her guardian says patient needs and agrees she should get. -signed CV after talking with guardian; also agreed with Prolixin Decanoate -patient superficially polite but easily triggered and intense anger; remains with paranoid, persecutory delusions and some grandiosity 09/30 patient remains superficially polite; guarded.? She has not been challenging staff.? Patient reports she is tired but denies any symptoms; agrees to increasing Prolixin p.o. (which is on Marquis and cannot be refused) -Prolixin 25 mg decanoate is roughly equivalent to getting Prolixin 20 mg p.o. daily; additionally p.o. doses are overlapped for several weeks after restarting Decanoate.? Patient gets Decanoate every 2 weeks and literature typically uses q. 3 weeks for conversion so will titrate p.o. Prolixin to about 15 mg daily.? Discussed with patient who agrees 10/02 remains superficially polite; is guarded and continues to have paranoid, persecutory delusions 10/05 remains superficially polite; is guarded and continues to have paranoid, persecutory delusions but lessening a bit in intensity 10/07 remains superficially polite; is guarded; denies all psychiatric symptoms, though intermittently internally preoccupied; pt has denied paranoid, persecutory delusions to senior underwriter despite expressing them to others. Patient complains of some visual changes and akathisia which she attributes to restarting Prolixin and says this is very common for her when she restarts it or has a dose increase. Of note, senior underwriter does not notice any akathisia, tremor or other EPS symptoms however it's possible that patient may be experiencing a subclinical amount of EPS. 10/09Patient reports akathisia and tardive dyskinesia from the Prolixin.? Patient shows senior underwriter her mouth which she is moving and says she has some mouth and tongue movements.? She c/o restlessness in her legs and is thus walking the hallways.? To that end she asks if a.m. dose of Prolixin committee lowered to 2.5 mg to which senior underwriter agrees.? At this point it is difficult to say if patient is having actual tardive dyskinesia or if she is feigning TD to lower her p.o. Prolixin dose, which her guardian/brother has reported she may do.? When looking at her mouth patient is clearly making it move and when distracted, mouth mo vements observed to by normal; similar observation made regarding akathesia; however it's possible that there could also be involuntarily mouth movent as well. Guardian says she has never had TD in the past.? She does not want any additional medications to mitigate this possible side effect.? Patient requests p.o. Prolixin to be discontinued and wants to just remain on the Decanoate.? Exceptional Children Teacher Assistant agrees with this plan.? While it is customary to overlap p.o. Prolixin with Decanoate, as it can take considerable time for Decanoate to reach steady state, it is however possible for decanoate to still become effective without p.o., though it will likely takes longer. 10/11 says TD and akathesia are significantly improved since dc'ing PO prolixin (none observed). She remains affable but guarded. Pt denies all psychiatric symptoms. She does not want to discuss events that occurred around admission or discuss hx diagnosis which she typically disputes, which makes it difficult to assess progress. Continue to rely on her guardians approximation of patients progress. However, off prolixin PO, patient might need to remain longer on unit; will discuss w/ guardian. 10/19 no change in presentation; no TD or akathisia observed; patient reports some mild intermittent tongue fasciculations but says it is much better.? Remains amenable to treatment plan.? Given patient's read a since will continue to reach out to guardian to help assess patient's stability 10/20Patient reports frustrating TD and restlessness.? Yesterday patient said it had been minimal for several days however she reports the last night she had much trouble sleeping due to feeling her legs are restless and today she demonstrates that she has a hard time sitting still.? Exceptional Children Teacher Assistant administered AIMS test: 10 Patient says that she is had the same symptoms for the past 5 years on Prolixin which have been about this level of intensity (patient has given some conflicting reports regarding his history and the week prior patient said that her history only included TD/akathisia at the initiation or restarting of Prolixin but that it eventually resolved on its own).? Exceptional Children Teacher Assistant reviewed medication options and listed the medications she has tried or considered reporting they are either ineffective, cause weight gain or also caused TD and d oes not want to switch meds.? She does not want any medication to ameliorate the symptoms including Ingrezza or propranolol, saying she rather tolerate these symptoms than have to take another medication.? Exceptional Children Teacher Assistant said he would discuss this with her brother/guardian.? However patient agrees to remain on this medication going forward.? Of note, senior underwriter observed tobias TD symptoms during aims test even when distracted by other tasks. TD does wax and wane. 10/21 no insight; wants off meds due to med side-effect of TD and restlessness. other providers whov'e had her in past remember some mild TD; senior underwriter and staff speculate some of her symptoms may be exaggerated for effect, but as mentioned she has been observed with symptoms even when perceived to be alone. 10/24 patient reports she is miserable with medication side effects of slowed speech slow, slurred words, feeling drowsy.? Today she did not complain of TD or akathisia but the opposite.? Of note, patient did have slowed speech when speaking with senior underwriter and slow movements of her body, however moments earlier when she was talking with social service assistant in the hallway she was using normal speech and there was no psychomotor retardation.? Again senior underwriter agrees that there is some amount of TD/akathisia or experience of restlessness and her body however these and other symptoms seem to be exaggerated in order to make a case for getting off Prolixin as the symptoms seem to vacillate between moderate/severe to absent depending on with whom she is speaking.? Patient continues to refuse any other medications to ameliorate symptoms; she also re fuses to consider any other antipsychotics that may have less side effects. Patient does not have any insight into her history of behaviors or delusions and currently, cannot accurately reflect on whether she ultimately enjoyed her life off medications. Exceptional Children Teacher Assistant has discussed this case with 2 other psychiatrists who have known patient over the years and who report that off medications she is floridly psychotic and on medication she has been able to her life at some level. Given this collateral information as well as senior underwriter's own observations when patient was 1st admitted, it remains senior underwriter's opinion that off medications and without significant help in the community, including a guardian, she will end up homeless and terrified. -will organized family meeting with social service assistant and Kong, her brother/guardian -patient is due for her 3rd installment of Prolixin Decanoate; initially it was hoped she could perhaps discharge soon after she received this 3rd dose.? However,? given her poor insight, her adamant, persistent request to have medications discontinued, and her guardians report that once she becomes stable, she feels and expresses the need to be on medications, it is senior underwriter's opinion that if patient were to be discharged at this time she would very quickly decompensate and be unable to function in the community and end up homeless, hungry, scared and overwhelmed by her delusions.? Guardian fully agrees.? For patient's safety, she needs to remain on the unit even after getting her 3rd dose of Prolixin Decanoate until she returns to her minimal baseline where she accepts the need for the medication.? Regarding? medication side effects, as mentioned above patient likely has some amount of TD and perhaps restlessness however patient seems to exaggerate her symptoms depending on her audience. 10/27 patient says some minor reduction in TD/restlessness since lowering Prolixin dose. -To another staff patient said I have some kind of delusional disorder which is the 1st time senior underwriter has heard of this patient referring to actually having? a psychiatric disorder.? 10/28 Patient disclosed To senior underwriter that she think she has a delusional disorder and said that it is confusing to her since something is a delusion and some things are real; decided not to contest Marquis regarding 10/29: Pt is requesting prolixin level, A1c, lipids, and B12 labs. Reviewed medications to help with akathesia, will consider low dose ativan. 10/31 discussed labs with borderline cholesterol levels; patient does not want any medication but will work on diet and exercise to lower cholesterol; also discus sed wrist tenderness which was diagnosed as Left de Quervain tenosynovitis. Orthopedist Dr. Maki Foss will follow up/tx with patient (see below). Patient asking for hold off on submitting documents for Marquis order until Prolixin level returns; senior underwriter will discuss with buildings and grounds coordinator and guardian as well as documentation is timely and lab results may take several days or longer to return 11/01 senior underwriter reviewed literature and discussed with clinical pharmacist; there is room for Prolixin levels to guide treatment however dosing typically remains a clinical decision, with a goal to use the lowest effective dose Overall patient has improved since admission. She has the insight to understand she does struggle with delusions and can have a hard time distinguishing between what is real and what is paranoid delusion; she also decided not to contest her Marquis order this year, though she did want to lower her by monthly dose. Exceptional Children Teacher Assistant will continue to discuss with guardian however patient seems to be approaching baseline given this improved insight. PLAN: pt signed CV Q 15 minute checks Patient is on a?community Marquis?extended and in effect until Nov 11, 2021; resubmitted around 11/01 with some changes Patient has a?guardian, her brother Kong Guillaume It is writers strong opinion that patient needs to remain on a Marquis order in order for her function in the community; it's also writers strong opinion that she continues to need a guardian as she has no insight into her condition (which is impaired even at baseline) and needs ongoing help in multiple areas in order to function in the community. 1.Schizophrenia, paranoid type (pt carries this dx) -LOWERED Prolixin Dec 17mg IM due on 10/26/21 (last dose of Prolixin Decanoate 25 mg IM received on 10/12/21); lowered to see if it can mitigate some of patient's reported TD/restlessness/akathisia -Propranolol 10mg qhs for EPS, help with sleep -patient on community Marquis and cannot refuse Prolixin -Patient? refuses any meds to help migate symptoms and won't consider alternatives to Prolixin (such as Clozapine which is very low risk for TD, but risk to causes wt gain). -DC'd PO Prolixin due to c/o TD and akathesia (dc'd on 10/10); typically, overalap Prolixin PO with Decanoate? (Decanoate 25 mg Q 2/3 weeks is roughly equivalent to Prolixin p.o. 15-20 mg daily Prolixin Dec is listed on her Marquis (CANNOT REFUSE), reviewed by senior underwriter and specified by her guardian (literature reports decanoate q. 3 weeks or longer has been as effective as q.2 weeks which is something patient can discuss with outpatient provider but is something that may reduce side-effects and thus increase adherence) -DC'd 1:1 pt not intrusive or interfering with others patients treatment) 2.?Left de Quervain tenosynovitis (Left hand anatomical snuff box tenderness) Patient reports she has point tenderness on her left hand at the anatomical snuffbox which was present before admission; says has worsened; denies any hx of fall or other hand trauma.? On examination patient point tenderness in left anatomical snuffbox; no tenderness elsewhere -left hand/wrist xray unremarkable, no fracture; -pain decreased with ibuprofen -Ortho consult got another set of images and dx Left de Quervain tenosynovitis who writes: 'I educated her about this condition I talked to her about the importance of activity modification She would benefit from a comfort cool Velcro thumb spica splint to be worn with daytime activities. She would also likely benefit from a steroid injection into the 1st dorsal compartment. I talked to her about these issues and she is interested in having a steroid injection. She explained to me that they do have a procedure room on the 5th floor or this could be done.' I spent minutes with the patient and/or on the patient floor today, greater than?50% of which was spent counseling/coordinating care. Reason for contiued inpatient stay Substantial Risk for: med/psych decompensation
[2021-11-01] MEDS: LORazepam 0.5 MG TABLET 0.25 MG PO ×3 (12:14→21:32)
--- NOTE | 2021-11-01 16:37 | PC.NURSE ---
PT reports continued restlessness and pacing and stated she received her PRN Ativan around noon and it helped. Requested PRN Ativan. Ativan given, effect pending.
[2021-11-01 18:00] VITALS: BP 133/88; PULSE 73; RESP 16; TEMP 36.8
[2021-11-02] MEDS: Acetaminophen 325 MG TABLET 650 MG PO ×2 (06:17→15:44)
[2021-11-02] MEDS: LORazepam 0.5 MG TABLET 0.25 MG PO ×4 (06:18→20:37)
[2021-11-02] MEDS: polyethylene glycoL 3350 17 GM POWD.PACK PO (06:21)
--- NOTE | 2021-11-02 10:10 | P.PNPSI_ITS ---
Subjective Subjective Date of Service: 11/02/21 Reason For Visit: SECTION 12, THOUGHTS TO HARM OTHERS Interim History: Patient reports continued intermittent restlessness/akathisia however does not want any additional medication to mitigate symptoms. She said she slept well last night even though she did not take propranolol. She is utilizing Ativan for symptoms however this makes her sleepy and she tries to avoid it. Patient denies other psychiatric symptoms Mental Status Exam Mental Status Exam Narrative: Pt is alert and oriented; behavior calm, cooperative; less guarded, more willing to talk about herself; dressed in casual nightgown, appropriate, adequately groomed and with adequate hygiene; mood is described as ok and affect congruent and overall warmer, smiling at times;? eye contact is appropriate; Speech is normal rate, volume; no psychomotor retardation present; no TD observed' pt does have restless movements;? thought process is organized and goal directed; Thought content on treatment; denies any current delusional thinking; denies SI/HI or AVH;? Patients insight and judgment still impaired but improving and has shared that she has a delusional disorder which carvalho a significant improvement in her insight; Judgment also improved as patient decided to not contest the guardian or Marquis order this year Diagnostics Vital Signs (24Hr): Vital Signs - 24 hr 11/01/21 18:00 Temperature 98.2 F Pulse Rate 73 Respiratory Rate 16 Blood Pressure 133/88 BMI result Body Mass Index 18.6 Labs Results: 09/22/21 17:48 09/22/21 17:48 Imaging Radiology Impressions: ITS Impressions Hand X-Ray 10/27/21 14:31 IMPRESSION: Unremarkable appearance of the left hand. No focal abnormality in the region of concern. Wrist X-Ray 10/31/21 10:50 IMPRESSION: No abnormal findings Medications Medications Current Medications Acetaminophen (Acetaminophen 325 Mg Tablet) 650 mg PO Q6H PRN PRN Reason: Headache/Pain Mild Scale (1-3) Last Admin: 11/02/21 06:17 Dose: 650 mg Documented by: Al Hydroxide/Mg Hydroxide (Magnesium Hydrox/Alum Hydrox 30 Ml Oral.Susp) 30 ml PO Q6H PRN PRN Reason: Heartburn/Nausea Fluphenazine Decanoate (Fluphenazine Decanoate 25 Mg/Ml 5 Ml Vial) 17 mg IM Q14D@0900 SARABJIT Last Admin: 10/26/21 09:02 Dose: 17 mg Documented by: Ibuprofen (Ibuprofen 600 Mg Tablet) 600 mg PO Q6H PRN PRN Reason: Pain, Mild (Pain Scale 1-3) Last Admin: 10/30/21 06:42 Dose: 600 mg Documented by: Lorazepam (Lorazepam 0.5 Mg Tablet) 0.25 mg PO Q4H PRN PRN Reason: akathesia Last Admin: 11/02/21 06:18 Dose: 0.25 mg Documented by: Magnesium Hydroxide (Milk Of Magnesia 30 Ml Oral.Susp) 30 ml PO DAILY PRN PRN Reason: Constipation Last Admin: 10/15/21 12:58 Dose: 30 ml Documented by: Melatonin (Melatonin 3 Mg Tablet) 3 mg PO BEDTIME PRN PRN Reason: CONTINUED insomnia Last Admin: 11/01/21 03:48 Dose: 3 mg Documented by: Melatonin (Melatonin 3 Mg Tablet) 3 mg PO BEDTIME SARABJIT Last Admin: 11/01/21 21:32 Dose: 3 mg Documented by: Pharmacy Consult (Consult Rx Perform Med Rec) 1 each MISCELLANE ONCE PRN PRN Reason: Consult order Polyethylene Glycol (Polyethylene Glycol 3350 17 Gm Powd.Pack) 17 gm PO BID PRN PRN Reason: Constipation Last Admin: 11/02/21 06:21 Dose: 17 gm Documented by: Propranolol HCl (Propranolol Hcl 10 Mg Tablet) 10 mg PO BEDTIME SARABJIT; Protocol Last Admin: 11/01/21 21:39 Dose: Not Given Documented by: Saliva Substitute (Dry Mouth [place] 60 Ml [place]) 1 spray MUCOUS MEM Q2H PRN PRN Reason: Dry Mouth Last Admin: 10/21/21 19:31 Dose: 1 spray Documented by: Allergies Allergies Allergy/AdvReac Type Severity Reaction Status Date / Time cashew nut Allergy Severe ANAPHYLAXIS Verified 10/04/21 19:44 peanut [Peanut] Allergy Severe ANAPHALAXIS Verified 10/04/21 19:44 Assessment & Plan Assessment & Plan (1) Closed de Quervain's fracture of left wrist: Status: Acute Code(s): S62.002A - Unspecified fracture of navicular [scaphoid] bone of left wrist, initial encounter for closed fracture (2) Schizophrenia: Status: Chronic Code(s): F20.9 - Schizophrenia, unspecified Plan IMPRESSION: Patient is a 61-year-old female with history of Delusional disorder (r/o schizophrenia), on a community Marquis and with her brother as guardian, who presents via EMS following a wellness check by [facility] staff and police who found patient's apartment in a disheveled state and patient with paranoid delusions that her food was poisoned, there were bombs in the toilet and that [facility] staff was a part of the [place] secret police who were planning her demise, in the face of going off her? Prolixin Decanoate this past December.? On admission she denied any SI, HI, AVH or any delusional thinking; she also denied that any of the reported events or findings from [facility]'s wellness check were true and denied that she has a mental illness.? Patient refused to sign in and was on a 12 B.? Patient was willing to take Prolixin p.o. She lacks all insight. HOSPITAL COURSE: Patient continues to lack all insight and has become verbally aggressive physically posturing with menacing affect, intruding into staff's personal space, verbally harassing staff and making it difficult for staff to carry out work on the unit.? Patient's behaviors have become unsafe; she refuses to increase p.o. Prolixin and for staff and milieu safety will order Prolixin Decanoate 25 mg IM which is on her Marquis and which her guardian says patient needs and agrees she should get. -signed CV after talking with guardian; also agreed with Prolixin Decanoate -patient superficially polite but easily triggered and intense anger; remains with paranoid, persecutory delusions and some grandiosity 09/30 patient remains superficially polite; guarded.? She has not been challenging staff.? Patient reports she is tired but denies any symptoms; agrees to increasing Prolixin p.o. (which is on Marquis and cannot be refused) -Prolixin 25 mg decanoate is roughly equivalent to getting Prolixin 20 mg p.o. daily; additionally p.o. doses are overlapped for several weeks after restarting Decanoate.? Patient gets Decanoate every 2 weeks and literature typically uses q. 3 weeks for conversion so will titrate p.o. Prolixin to about 15 mg daily.? Discussed with patient who agrees 10/02 remains superficially polite; is guarded and continues to have paranoid, persecutory delusions 10/05 remains superficially polite; is guarded and continues to have paranoid, persecutory delusions but lessening a bit in intensity 10/07 remains superficially polite; is guarded; denies all psychiatric symptoms, though intermittently internally preoccupied; pt has denied paranoid, persecutory delusions to sba underwriter despite expressing them to others. Patient complains of some visual changes and akathisia which she attributes to restarting Prolixin and says this is very common for her when she restarts it or has a dose increase. Of note, sba underwriter does not notice any akathisia, tremor or other EPS symptoms however it's possible that patient may be experiencing a subclinical amount of EPS. 10/09Patient reports akathisia and tardive dyskinesia from the Prolixin.? Patient shows sba underwriter her mouth which she is moving and says she has some mouth and tongue movements.? She c/o restlessness in her legs and is thus walking the hallways.? To that end she asks if a.m. dose of Prolixin committee lowered to 2.5 mg to which sba underwriter agrees.? At this point it is difficult to say if patient is having actual tardive dyskinesia or if she is feigning TD to lower her p.o. Prolixin dose, which her guardian/brother has reported she may do.? When looking at her mouth patient is clearly making it move and when distracted, mouth movements observed to by normal; similar observation made regarding akathesia; however it's possible that there could also be involuntarily mouth movent as well. Guardian says she has never had TD in the past.? She does not want any additional medications to mitigate this possible side effect.? Patient requests p.o. Prolixin to be discontinued and wants to just remain on the Decanoate.? Manufacturing Quality Manager agrees with this plan.? While it is customary to overlap p.o. Prolixin with Decanoate, as it can take considerable time for Decanoate to reach steady s wilkes, it is however possible for decanoate to still become effective without p.o., though it will likely takes longer. 10/11 says TD and akathesia are significantly improved since dc'ing PO prolixin (none observed). She remains affable but guarded. Pt denies all psychiatric symptoms. She does not want to discuss events that occurred around admission or discuss hx diagnosis which she typically disputes, which makes it difficult to assess progress. Continue to rely on her guardians approximation of patients progress. However, off prolixin PO, patient might need to remain longer on unit; will discuss w/ guardian. 10/19 no change in presentation; no TD or akathisia observed; patient reports some mild intermittent tongue fasciculations but says it is much better.? Remains amenable to treatment plan.? Given patient's read a since will continue to reach out to guardian to help assess patient's stability 10/20Patient reports frustrating TD and restlessness.? Yesterday patient said it had been minimal for several days however she reports the last night she had much trouble sleeping due to feeling her legs are restless and today she demonstrates that she has a hard time sitting still.? Manufacturing Quality Manager administered AIMS test: 10 Patient says that she is had the same symptoms for the past 5 years on Prolixin which have been about this level of intensity (patient has given some conflicting reports regarding his history and the week prior patient said that her history only included TD/akathisia at the initiation or restarting of Prolixin but that it eventually resolved on its own).? Manufacturing Quality Manager reviewed medication options and listed the medications she has tried or considered reporting they are either ineffective, cause weight gain or also caused TD and does not want to switch meds.? She does not want any medication to ameliorate the symptoms including Ingrezza or propranolol, saying she rather tolerate these symptoms than have to take another medication.? Manufacturing Quality Manager said he would discuss this with her brother/guardian.? However patient agrees to remain on this medication going forward.? Of note, sba underwriter observed tobias TD symptoms during aims test even when distracted by other tasks. TD does wax and wane. 10/21 no insight; wants off meds due to med side-effect of TD and restlessness. other providers whov'e had her in past remember some mild TD; sba underwriter and staff speculate some of her symptoms may be exaggerated for effect, but as mentioned she has been observed with symptoms even when perceived to be alone. 10/24 patient reports she is miserable with medication side effects of slowed speech slow, slurred words, feeling drowsy.? Today she did not complain of TD or akathisia but the opposite.? Of note, patient did have slowed speech when speaking with sba underwriter and slow movements of her body, however moments earlier when she was talking with social media analyst in the hallway she was using normal speech and there was no psychomotor retardation.? Again sba underwriter agrees that there is some amount of TD/akathisia or experience of restlessness and her body however these and other symptoms seem to be exaggerated in order to make a case for getting off Prolixin as the symptoms seem to vacillate between moderate/severe to absent depending on with whom she is speaking.? Patient continues to refuse any other medications to ameliorate symptoms; she also refuses to consider any other antipsychotics that may have less side effects. Patient does not have any insight into her history of behaviors or delusions and currently, cannot accurately reflect on whether she ultimately enjoyed her life off medications. Manufacturing Quality Manager has discussed this case with 2 other psychiatrists who have known patient over the years and who report that off medications she is floridly psychotic and on medication she has been able to her life at some level. Given this collateral information as well as sba underwriter's own observations when patient was 1st admitted, it remains sba underwriter's opinion that off medications and without significant help in the community, including a guardian, she will end up homeless and terrified. -will organized family meeting with social media analyst and Kong, her brother/guardian -patient is due for her 3rd installment of Prolixin Decanoate; initially it was hoped she could perhaps discharge soon after she received this 3rd dose.? However,? given her poor insight, her adamant, persistent request to have me dications discontinued, and her guardians report that once she becomes stable, she feels and expresses the need to be on medications, it is sba underwriter's opinion that if patient were to be discharged at this time she would very quickly decompensate and be unable to function in the community and end up homeless, hungry, scared and overwhelmed by her delusions.? Guardian fully agrees.? For patient's safety, she needs to remain on the unit even after getting her 3rd dose of Prolixin Decanoate until she returns to her minimal baseline where she accepts the need for the medication.? Regarding? medication side effects, as mentioned above patient likely has some amount of TD and perhaps restlessness however patient seems to exaggerate her symptoms depending on her audience. 2 patient says some minor reduction in TD/restlessness since lowering Prolixin dose. -To another staff patient said I have some kind of delusional disorder which is the 1st time sba underwriter has heard of this patient referring to actually having? a psychiatric disorder.? 10/28 Patient disclosed To sba underwriter that she think she has a delusional disorder and said that it is confusing to her since something is a delusion and some things are real; decided not to contest Marquis regarding 10/29: Pt is requesting prolixin level, A1c, lipids, and B12 labs. Reviewed medications to help with akathesia, will consider low dose ativan. 10/31 discussed labs with borderline cholesterol levels; patient does not want any medication but will work on diet and exercise to lower cholesterol; also discussed wrist tenderness which was diagnosed as Left de Quervain tenosynovitis. Orthopedist Dr. Maki Foss will follow up/tx with patient (see below). Patient asking for hold off on submitting documents for Marquis order until Prolixin level returns; sba underwriter will discuss with float nurse and guardian as well as documentation is timely and lab results may take several days or longer to return 11/01 sba underwriter reviewed literature and discussed with clinical pharmacist; there is room for Prolixin levels to guide treatment however dosing typically remains a clinical decision, with a goal to use the lowest effective dose Overall patient has improved since admission. She has the insight to understand she does struggle with delusions and can have a hard time distinguishing between what is real and what is paranoid delusion; she also decided not to contest her Marquis order this year, though she did want to lower her by monthly dose. Manufacturing Quality Manager will continue to discuss with guardian however patient seems to be approaching baseline given this improved insight. PLAN: pt signed CV Q 15 minute checks Patient is on a?community Marquis?extended and in effect until Nov 11, 2021; resubmitted around 11/01 with some changes Patient has a?guardian, her brother Kong Guillaume It is writers strong opinion that patient needs to remain on a Marquis order in order for her function in the community; it's also writers strong opinion that she continues to need a guardian as she has no insight into her condition (which is impaired even at baseline) and needs ongoing help in multiple areas in order to function in the community. 1.Schizophrenia, paranoid type (pt carries this dx) -LOWERED Prolixin Dec 17mg IM due on 10/26/21 (last dose of Prolixin Decanoate 25 mg IM received on 10/12/21); lowered to see if it can mitigate some of patient's reported TD/restlessness/akathisia -Propranolol 10mg qhs for EPS, help with sleep -patient on community Marquis and cannot refuse Prolixin -Patient? refuses any meds to help migate symptoms and won't consider alternatives to Prolixin (such as Clozapine which is very low risk for TD, but risk to causes wt gain). -DC'd PO Prolixin due to c/o TD and akathesia (dc'd on 10/10); typically, overalap Prolixin PO with Decanoate? (Decanoate 25 mg Q 2/3 weeks is roughly equivalent to Prolixin p.o. 15-20 mg daily Prolixin Dec is listed on her Marquis (CANNOT REFUSE), reviewed by sba underwriter and specified by her guardian (literature reports decanoate q. 3 weeks or longer has been as effective as q.2 weeks which is something patient can discuss with outpatient provider but is something that may reduce side-effects and thus increase adherence) -DC'd 1:1 pt not intrusive or interfering with others patients treatment) 2.?Left de Quervain tenosynovitis (Left hand anatomical snuff box tenderness) Patient reports she has point tenderness on her left hand at the anatomical snuffbox which was present before admission; says has worsened; denies any hx of fall or other hand trauma.? On examination patient point tenderness in left anatomical snuffbox; no tenderness elsewhere -left hand/wrist xray unremarkable, no fracture; -pain decreased with ibuprofen -Ortho consult got another set of images and dx Left de Quervain tenosynovitis who writes: 'I educated her about this condition I talked to her about the importance of activity modification She would benefit from a comfort cool Velcro thumb spica splint to be worn with daytime activities. She would also likely benefit from a steroid injection into the 1st dorsal compartment. I talked to her about these issues and she is interested in having a steroid injection. She explained to me that they do have a procedure room on the 5th floor or this could be done.' I spent minutes with the patient and/or on the patient floor today, greater than?50% of which was spent counseling/coordinating care. Reason for contiued inpatient stay Substantial Risk for: med/psych decompensation
[2021-11-02 19:50] VITALS: BP 140/80; PULSE 88; TEMP 36.8
[2021-11-02] MEDS: Melatonin 3 MG TABLET PO (20:35)
[2021-11-02] MEDS: Propranolol HCL 10 MG TABLET PO (20:36)
[2021-11-03] MEDS: LORazepam 0.5 MG TABLET 0.25 MG PO ×3 (06:46→14:34)
[2021-11-03] MEDS: polyethylene glycoL 3350 17 GM POWD.PACK PO (06:46)
[2021-11-03] MEDS: Acetaminophen 325 MG TABLET 650 MG PO ×2 (06:46→14:14)
--- NOTE | 2021-11-03 14:16 | PM.PNORT ---
Subjective Subjective Date of Service: 11/03/21 Principal diagnosis: left de Quervain tenosynovitis. Physical Exam Vital Signs: Vital Signs: Last Vital Signs Temp 98.3 F 11/02/21 19:50 Pulse 88 11/02/21 19:50 Resp 16 11/01/21 18:00 BP 140/80 H 11/02/21 19:50 Pulse Ox 100 10/26/21 18:49 BMI result Body Mass Index 18.6 Extrem: Other: The patient was alert oriented and in no acute distress. She is most tender to palpation over the left 1st dorsal compartment. She has a positive Emilee test on the left and a negative Emilee test on the right. She can make a fist and extend all her digits. Sensation grossly intact to all digits, and cap refill is brisk. We had talked about a possible steroid injection to help her with her de Quervain tenosynovitis when I last examined her appear on the Behavioral Health Floor. Expressed that she was interested in having a steroid injection if I thought that it could help alleviate her painful symptoms. She does not appear stressed about having an injection today. Procedures Date of Service Date of Service: 11/03/21 Abscess I/D Anesthetic used: bupivacaine Progress Note: A&P Assessment and plan (1) De Quervain's tenosynovitis: Status: Acute Plan assessment and plan: 1. Left de Quervain tenosynovitis I educated the patient about this condition we discussed the importance of activity modification, and avoiding activities that aggravate this condition. We discussed the risks and benefits of a steroid injection and she wished to proceed with a steroid injection. Injection #1: The risks and benefits of a steroid injection including but not limited to risk of damage to blood vessels, nerves, tendons, infection, skin bleaching, failure to improve symptoms, increased pain, and possible need for further injections or other intervention were discussed with the patient and the patient wishes to proceed with the steroid injection. Once consent was obtained, I sterilely prepped the area over the Left 1st dorsal compartment.. I then injected the First dorsal compartment tendon sheath with a combination of 1 mL of dexamethasone (4mg/ml), and 0.5% plain Marcaine. The patient tolerated the procedure well with no complications. She had some good early relief of symptoms following the injection. We are unable to give her our usual Comfort Cool neoprene thumb spica splint because she is here on the behavioral health floor and it can be stretched out to more than 12 in in length. If the patient continues to have painful symptoms 8 weeks following this injection, they may call to schedule appointment to be seen for possible 2nd injection, or to talk about possible surgery. Fall Risk Details Current Medications: Current Medications Acetaminophen (Acetaminophen 325 Mg Tablet) 650 mg PO Q6H PRN PRN Reason: Headache/Pain Mild Scale (1-3) Last Admin: 11/03/21 06:46 Dose: 650 mg Documented by: Al Hydroxide/Mg Hydroxide (Magnesium Hydrox/Alum Hydrox 30 Ml Oral.Susp) 30 ml PO Q6H PRN PRN Reason: Heartburn/Nausea Fluphenazine Decanoate (Fluphenazine Decanoate 25 Mg/Ml 5 Ml Vial) 17 mg IM Q14D@0900 SARABJIT Last Admin: 10/26/21 09:02 Dose: 17 mg Documented by: Ibuprofen (Ibuprofen 600 Mg Tablet) 600 mg PO Q6H PRN PRN Reason: Pain, Mild (Pain Scale 1-3) Last Admin: 10/30/21 06:42 Dose: 600 mg Documented by: Lorazepam (Lorazepam 0.5 Mg Tablet) 0.25 mg PO Q4H PRN PRN Reason: akathesia Last Admin: 11/03/21 10:45 Dose: 0.25 mg Documented by: Magnesium Hydroxide (Milk Of Magnesia 30 Ml Oral.Susp) 30 ml PO DAILY PRN PRN Reason: Constipation Last Admin: 10/15/21 12:58 Dose: 30 ml Documented by: Melatonin (Melatonin 3 Mg Tablet) 3 mg PO BEDTIME PRN PRN Reason: CONTINUED insomnia Last Admin: 11/01/21 03:48 Dose: 3 mg Documented by: Melatonin (Melatonin 3 Mg Tablet) 3 mg PO BEDTIME SARABJIT Last Admin: 11/02/21 20:35 Dose: 3 mg Documented by: Pharmacy Consult (Consult Rx Perform Med Rec) 1 each MISCELLANE ONCE PRN PRN Reason: Consult order Polyethylene Glycol (Polyethylene Glycol 3350 17 Gm Powd.Pack) 17 gm PO BID PRN PRN Reason: Constipation Last Admin: 11/03/21 06:46 Dose: 17 gm Documented by: Propranolol HCl (Propranolol Hcl 10 Mg Tablet) 10 mg PO BEDTIME SARABJIT; Protocol Last Admin: 11/02/21 20:36 Dose: 10 mg Documented by: Saliva Substitute (Dry Mouth [place] 60 Ml [place]) 1 spray MUCOUS MEM Q2H PRN PRN Reason: Dry Mouth Last Admin: 10/21/21 19:31 Dose: 1 spray Documented by: Time Spent With Patient Time: Total time spent is greater than 50% in coordination of care (as documented) at patient's floor/unit and/or counseling patient: Time with patient: less than 15 minutes Quality Stroke Does the patient have a stroke diagnosis?: No VTE Prior VTE?: No VTE Risk Level:: Surgical - low VTE Device Contraindication: Procedure Contraindicated VTE Drug Contraindication: Treatment Not Indicated
--- NOTE | 2021-11-03 16:31 | P.PNPSI_ITS ---
Subjective Subjective Date of Service: 11/03/21 Reason For Visit: SECTION 12, THOUGHTS TO HARM OTHERS Interim History: Patient denies psychiatric symptoms. She is focused on seen orthopedic for tendinitis. She reports continued mild jaw movements and continued akathisia. Patient later received injection by ortho in said hand feels much better Mental Status Exam Mental Status Exam Narrative: Pt is alert and oriented; behavior calm, cooperative; less guarded, more willing to talk about herself; dressed in casual nightgown, appropriate, adequately groomed and with adequate hygiene; mood is described as ok and affect congruent and overall warmer, smiling at times;? eye contact is appropriate; Speech is normal rate, volume; no psychomotor retardation present; no TD observed' pt does have restless movements;? thought process is organized and goal directed; Thought content on treatment; denies any current delusional thinking; denies SI/HI or AVH;? Patients insight and judgment still impaired but improving and has shared that she has a delusional disorder which carvalho a signif icant improvement in her insight; Judgment also improved as patient decided to not contest the guardian or Marquis order this year Diagnostics Vital Signs (24Hr): Vital Signs - 24 hr 11/02/21 19:50 Temperature 98.3 F Pulse Rate 88 Blood Pressure 140/80 H BMI result Body Mass Index 18.6 Labs Results: 09/22/21 17:48 09/22/21 17:48 Imaging Radiology Impressions: ITS Impressions Hand X-Ray 10/27/21 14:31 IMPRESSION: Unremarkable appearance of the left hand. No focal abnormality in the region of concern. Wrist X-Ray 10/31/21 10:50 IMPRESSION: No abnormal findings Medications Medications Current Medications Acetaminophen (Acetaminophen 325 Mg Tablet) 650 mg PO Q6H PRN PRN Reason: Headache/Pain Mild Scale (1-3) Last Admin: 11/03/21 14:14 Dose: 650 mg Documented by: Al Hydroxide/Mg Hydroxide (Magnesium Hydrox/Alum Hydrox 30 Ml Oral.Susp) 30 ml PO Q6H PRN PRN Reason: Heartburn/Nausea Fluphenazine Decanoate (Fluphenazine Decanoate 25 Mg/Ml 5 Ml Vial) 17 mg IM Q14D@0900 SARABJIT Last Admin: 10/26/21 09:02 Dose: 17 mg Documented by: Ibuprofen (Ibuprofen 600 Mg Tablet) 600 mg PO Q6H PRN PRN Reason: Pain, Mild (Pain Scale 1-3) Last Admin: 10/30/21 06:42 Dose: 600 mg Documented by: Lorazepam (Lorazepam 0.5 Mg Tablet) 0.25 mg PO Q4H PRN PRN Reason: akathesia Last Admin: 11/03/21 14:34 Dose: 0.25 mg Documented by: Magnesium Hydroxide (Milk Of Magnesia 30 Ml Oral.Susp) 30 ml PO DAILY PRN PRN Reason: Constipation Last Admin: 10/15/21 12:58 Dose: 30 ml Documented by: Melatonin (Melatonin 3 Mg Tablet) 3 mg PO BEDTIME PRN PRN Reason: CONTINUED insomnia Last Admin: 11/01/21 03:48 Dose: 3 mg Documented by: Melatonin (Melatonin 3 Mg Tablet) 3 mg PO BEDTIME SARABJIT Last Admin: 11/02/21 20:35 Dose: 3 mg Documented by: Pharmacy Consult (Consult Rx Perform Med Rec) 1 each MISCELLANE ONCE PRN PRN Reason: Consult order Polyethylene Glycol (Polyethylene Glycol 3350 17 Gm Powd.Pack) 17 gm PO BID PRN PRN Reason: Constipation Last Admin: 11/03/21 06:46 Dose: 17 gm Documented by: Propranolol HCl (Propranolol Hcl 10 Mg Tablet) 10 mg PO BEDTIME SARABJIT; Protocol Last Admin: 11/02/21 20:36 Dose: 10 mg Documented by: Saliva Substitute (Dry Mouth [place] 60 Ml [place]) 1 spray MUCOUS MEM Q2H PRN PRN Reason: Dry Mouth Last Admin: 10/21/21 19:31 Dose: 1 spray Documented by: Allergies Allergies Allergy/AdvReac Type Severity Reaction Status Date / Time cashew nut Allergy Severe ANAPHYLAXIS Verified 10/04/21 19:44 peanut [Peanut] Allergy Severe ANAPHALAXIS Verified 10/04/21 19:44 Assessment & Plan Assessment & Plan (1) De Quervain's tenosynovitis: Status: Acute Code(s): M65.4 - Radial styloid tenosynovitis [de Quervain] Plan IMPRESSION: Patient is a 61-year-old female with history of Delusional disorder (r/o schizophrenia), on a community Marquis and with her brother as guardian, who presents via EMS following a wellness check by [facility] staff and police who found patient's apartment in a disheveled state and patient with paranoid delusions that her food was poisoned, there were bombs in the toilet and that [facility] staff was a part of the [place] secret police who were planning her demise, in the face of going off her? Prolixin Decanoate this past December.? On admission she denied any SI, HI, AVH or any delusional thinking; she also denied that any of the reported events or findings from [facility]'s wellness check were true and denied that she has a mental illness.? Patient refused to sign in and was on a 12 B.? Patient was willing to take Prolixin p.o. She lacks all insight. HOSPITAL COURSE: Patient continues to lack all insight and has become verbally aggressive physically posturing with menacing affect, intruding into staff's personal space, verbally harassing staff and making it difficult for staff to carry out work on the unit.? Patient's behaviors have become unsafe; she refuses to increase p.o. Prolixin and for staff and milieu safety will order Prolixin Decanoate 25 mg IM which is on her Marquis and which her guardian says patient needs and agrees she should get. -signed CV after talking with guardian; also agreed with Prolixin Decanoate -patient superficially polite but easily triggered and intense anger; remains with paranoid, persecutory delusions and some grandiosity 09/30 patient remains superficially polite; guarded.? She has not been challenging staff.? Patient reports she is tired but denies any symptoms; agrees to increasing Prolixin p.o. (which is on Marquis and cannot be refused) -Prolixin 25 mg decanoate is roughly equivalent to getting Prolixin 20 mg p.o. daily; additionally p.o. doses are overlapped for several weeks after restarting Decanoate.? Patient gets Decanoate every 2 weeks and literature typically uses q. 3 weeks for conversion so will titrate p.o. Prolixin to about 15 mg daily.? Discussed with patient who agrees 10/02 remains superficially polite; is guarded and continues to have paranoid, persecutory delusions 10/05 remains superficially polite; is guarded and continues to have paranoid, persecutory delusions but lessening a bit in intensity 10/07 remains superficially polite; is guarded; denies all psychiatric symptoms, though intermittently internally preoccupied; pt has denied paranoid, persecutory delusions to investment underwriter despite expressing them to others. Patient complains of some visual changes and akathisia which she attributes to restarting Prolixin and says this is very common for her when she restarts it or has a dose increase. Of note, investment underwriter does not notice any akathisia, tremor or other EPS symptoms however it's possible that patient may be experiencing a subclinical amount of EPS. 10/09Patient reports akathisia and tardive dyskinesia from the Prolixin.? Patient shows investment underwriter her mouth which she is moving and says she has some mouth and to ngue movements.? She c/o restlessness in her legs and is thus walking the hallways.? To that end she asks if a.m. dose of Prolixin committee lowered to 2.5 mg to which investment underwriter agrees.? At this point it is difficult to say if patient is having actual tardive dyskinesia or if she is feigning TD to lower her p.o. Prolixin dose, which her guardian/brother has reported she may do.? When looking at her mouth patient is clearly making it move and when distracted, mouth movements observed to by normal; similar observation made regarding akathesia; however it's possible that there could also be involuntarily mouth movent as well. Guardian says she has never had TD in the past.? She does not want any a dditional medications to mitigate this possible side effect.? Patient requests p.o. Prolixin to be discontinued and wants to just remain on the Decanoate.? Cut Out Operator agrees with this plan.? While it is customary to overlap p.o. Prolixin with Decanoate, as it can take considerable time for Decanoate to reach steady state, it is however possible for decanoate to still become effective without p.o., though it will likely takes longer. 10/11 says TD and akathesia are significantly improved since dc'ing PO prolixin (none observed). She remains affable but guarded. Pt denies all psychiatric symptoms. She does not want to discuss events that occurred around admission or discuss hx diagnosis which she typically disputes, which makes it difficult to assess progress. Continue to rely on her guardians approximation of patients progress. However, off prolixin PO, patient might need to remain longer on unit; will discuss w/ guardian. 10/19 no change in presentation; no TD or akathisia observed; patient reports some mild intermittent tongue fasciculations but says it is much better.? Remains amenable to treatment plan.? Given patient's read a since will continue to reach out to guardian to help assess patient's stability 10/20Patient reports frustrating TD and restlessness.? Yesterday patient said it had been minimal for several days however she reports the last night she had much trouble sleeping due to feeling her legs are restless and today she demonstrates that she has a hard time sitting still.? Cut Out Operator administered AIMS test: 10 Patient says that she is had the same symptoms for the past 5 years on Prolixin which have been about this level of intensity (patient has given some conflictin g reports regarding his history and the week prior patient said that her history only included TD/akathisia at the initiation or restarting of Prolixin but that it eventually resolved on its own).? Cut Out Operator reviewed medication options and listed the medications she has tried or considered reporting they are either ineffective, cause weight gain or also caused TD and does not want to switch meds.? She does not want any medication to ameliorate the symptoms including Ingrezza or propranolol, saying she rather tolerate these symptoms than have to take another medication.? Cut Out Operator said he would discuss this with her brother/guardian.? However patient agrees to remain on this medication going forward.? Of note, investment underwriter observed tobias TD symptoms during aims test even when distracted by other tasks. TD does wax and wane. 10/21 no insight; wants off meds due to med side-effect of TD and restlessness. other providers whov'e had her in past remember some mild TD; investment underwriter and staff speculate some of her symptoms may be exaggerated for effect, but as mentioned she has been observed with symptoms even when perceived to be alone. 10/24 patient reports she is miserable with medication side effects of slowed speech slow, slurred words, feeling drowsy.? Today she did not complain of TD or akathisia but the opposite.? Of note, patient did have slowed speech when speaking with investment underwriter and slow movements of her body, however moments earlier when she was talking with outreach and education social worker in the hallway she was using normal speech and there was no psychomotor retardation.? Again investment underwriter agrees that there is some amount of TD/akathisia or experience of restlessness and her body however these and other symptoms seem to be exaggerated in order to make a case for getting off Prolixin as the symptoms seem to vacillate between moderate/severe to absent depending on with whom she is speaking.? Patient continues to refuse any other medications to ameliorate symptoms; she also refuses to consider any other antipsychotics that may have less side effects. Patient does not have any insight into her history of behaviors or delusions and currently, cannot accurately reflect on whether she ultimately enjoyed her life off medications. Cut Out Operator has discussed this case with 2 other psychiatrists who have known patient over the years and who report that off medications she is floridly psychotic and on medication she has been able to her life at some level. Given this collateral information as well as investment underwriter's own observations when patient was 1st admitted, it remains investment underwriter's opinion that off medications and without significant help in the community, including a guardian, she will end up homeless and terrified. -will organized family meeting with outreach and education social worker and Kong, her brother/guardian -patient is due for her 3rd installment of Prolixin Decanoate; initially it was hoped she could perhaps discharge soon after she received this 3rd dose.? However,? given her poor insight, her adamant, persistent request to have medications discontinued, and her guardians report that once she becomes stable, she feels and expresses the need to be on medications, it is investment underwriter's opinion that if patient were to be discharged at this time she would very quickly decompensate and be unable to function in the community and end up homeless, hungry, scared and overwhelmed by her delusions.? Guardian fully agrees.? For patient's safety, she needs to remain on the unit even after getting her 3rd dose of Prolixin Decanoate until she returns to her minimal baseline where she accepts the need for the medication.? Regarding? medication side effects, as mentioned above patient likely has some amount of TD and perhaps restlessness however patient seems to exaggerate her symptoms depending on her audience. 2/3 patient says some minor reduction in TD/restlessness since lowering Prolixin dose. -To another staff patient said I have some kind of delusional disorder which is the 1st time investment underwriter has heard of this patient referring to actually having? a psychiatric disorder.? 10/28 Patient disclosed To investment underwriter that she think she has a delusional disorder and said that it is confusing to her since something is a delusion and some things are real; decided not to contest Marquis regarding 10/29: Pt is requesting prolixin level, A1c, lipids, and B12 labs. Reviewed medications to help with akathesia, will consider low dose ativan. 10/31 discussed labs with borderline cholesterol levels; patient does not want any medication but will work on diet and exercise to lower cholesterol; also discussed wrist tenderness which was diagnosed as Left de Quervain tenosynovitis. Orthopedist Dr. Maki Foss will follow up/tx with patient (see below).? Patient asking for hold off on submitting documents for Marquis order until Prolixin level returns; investment underwriter will discuss with wood strip block floor installer and guardian as well as documentation is timely and lab results may take several days or longer to return 11/01 investment underwriter reviewed literature and discussed with clinical pharmacist; there is room for Prolixin levels to guide treatment however dosing typically remains a clinical decision, with a goal to use the lowest effective dose Overall patient has improved since admission.? She has the insight to understand she does struggle with delusions and can have a hard time distinguishing between what is real and what is paranoid delusion; she also decided not to contest her Marquis order this year, though she did want to lower her by monthly dose.Jairo rich will continue to discuss with guardian however patient seems to be approaching baseline given this improved insight. PLAN: pt signed CV Q 15 minute checks Patient is on a?community Marquis?extended and in effect until Nov 11, 2021; resubmitted around 11/01 with some changes Patient has a?guardian, her brother Kong Guillaume It is writers strong opinion that patient needs to remain on a Marquis order in order for her function in the community; it's also writers strong opinion that she continues to need a guardian as she has no insight into her condition (which is impaired even at baseline) and needs ongoing help in multiple areas in order to function in the community. 1.Schizophrenia, paranoid type (pt carries this dx) -LOWERED Prolixin Dec 17mg IM due on 10/26/21 (last dose of Prolixin Decanoate 25 mg IM received on 10/12/21); lowered to see if it can mitigate some of patient's reported TD/restlessness/akathisia -Propranolol 10mg qhs for EPS, help with sleep -patient on community Marquis and cannot refuse Prolixin -Patient? refuses any meds to help migate symptoms and won't consider al ternatives to Prolixin (such as Clozapine which is very low risk for TD, but risk to causes wt gain). -DC'd PO Prolixin due to c/o TD and akathesia (dc'd on 10/10); typically, overalap Prolixin PO with Decanoate? (Decanoate 25 mg Q 2/3 weeks is roughly equivalent to Prolixin p.o. 15-20 mg daily Prolixin Dec is listed on her Marquis (CANNOT REFUSE), reviewed by investment underwriter and specified by her guardian (literature reports decanoate q. 3 weeks or longer has been as effective as q.2 weeks which is something patient can discuss with outpatient provider but is something that may reduce side-effects and thus increase adherence) -DC'd 1:1 pt not intrusive or interfering with others patients treatment) 2.?Left de Quervain tenosynovitis (Left hand anatomical snuff box tenderness) Patient reports she has point tenderness on her left hand at the anatomical snuffbox which was present before admission; says has worsened; denies any hx of fall or other hand trauma.? On examination patient point tenderness in left anatomical snuffbox; no tenderness elsewhere -left hand/wrist xray unremarkable, no fracture; -pain decreased with ibuprofen -Ortho consult got another set of images and dx Left de Quervain tenosynovitis who writes: assessment and plan: 1. Left de Quervain tenosynovitis I educated the patient about this condition we discussed the importance of activity modification, and avoiding activities that aggravate this condition. We discussed the risks and benefits of a steroid injection and she wished to proceed with a steroid injection. Injection #1: The risks and benefits of a steroid injection including but not limited to risk of damage to blood vessels, nerves, tendons, infection, skin bleaching, failure to improve symptoms, increased pain, and possible need for further injections or other intervention were discussed with the patient and the patient wishes to proceed with the steroid injection. Once consent was obtained, I sterilely prepped the area over the Left 1st dorsal compartment.. I then injected the First dorsal compartment tendon rodriguez th with a combination of 1 mL of dexamethasone (4mg/ml), and 0.5% plain Marcaine. The patient tolerated the procedure well with no complications. She had some good early relief of symptoms following the injection. We are unable to give her our usual Comfort Cool neoprene thumb spica splint because she is here on the behavioral health floor and it can be stretched out to more than 12 in in length. If the patient continues to have painful symptoms 8 weeks following this injection, they may call to schedule appointment to be seen for possible 2nd injection, or to talk about possible surgery. I spent minutes with the patient and/or on the patient floor today, greater than?50% of which was spent counseling/coordinating care. Reason for contiued inpatient stay Substantial Risk for: med/psych decompensation
[2021-11-03 18:00] VITALS: BP 165/88; PULSE 72; RESP 16; TEMP 36.5; O2SAT 95
[2021-11-03] MEDS: Propranolol HCL 10 MG TABLET PO (20:04)
[2021-11-03] MEDS: Melatonin 3 MG TABLET PO (20:05)
[2021-11-04] MEDS: Melatonin 3 MG TABLET PO ×2 (04:03→21:12)
[2021-11-04] MEDS: polyethylene glycoL 3350 17 GM POWD.PACK PO (08:01)
[2021-11-04] MEDS: LORazepam 0.5 MG TABLET 0.25 MG PO (13:29)
--- NOTE | 2021-11-04 14:32 | HO.PSYCHPN ---
Subjective Subjective Date of Service: 11/04/21 Reason For Visit: SECTION 12, THOUGHTS TO HARM OTHERS Interim History: patient tired today but denies any other symptoms. Patient said hand feels much better after getting injection from Ortho. Agricultural Produce Packer talked with her about her medication regimen and asked which she thinks about it. She says that she plans on continuing to take it. Agricultural Produce Packer asked why and she said because it was such a catastrophe this past time. Diagnostics Vital Signs (24Hr): Vital Signs - 24 hr 11/03/21 18:00 Temperature 97.7 F Pulse Rate 72 Respiratory Rate 16 Blood Pressure 165/88 H Pulse Oximetry 95 BMI result Body Mass Index 18.6 Labs Results: 09/22/21 17:48 09/22/21 17:48 Imaging Radiology Impressions: ITS Impressions Hand X-Ray 10/27/21 14:31 IMPRESSION: Unremarkable appearance of the left hand. No focal abnormality in the region of concern. Wrist X-Ray 10/31/21 10:50 IMPRESSION: No abnormal findings Medications Medications Current Medications Acetaminophen (Acetaminophen 325 Mg Tablet) 650 mg PO Q6H PRN PRN Reason: Headache/Pain Mild Scale (1-3) Last Admin: 11/03/21 14:14 Dose: 650 mg Documented by: Al Hydroxide/Mg Hydroxide (Magnesium Hydrox/Alum Hydrox 30 Ml Oral.Susp) 30 ml PO Q6H PRN PRN Reason: Heartburn/Nausea Fluphenazine Decanoate (Fluphenazine Decanoate 25 Mg/Ml 5 Ml Vial) 17 mg IM Q14D@0900 SARABJIT Last Admin: 10/26/21 09:02 Dose: 17 mg Documented by: Ibuprofen (Ibuprofen 600 Mg Tablet) 600 mg PO Q6H PRN PRN Reason: Pain, Mild (Pain Scale 1-3) Last Admin: 10/30/21 06:42 Dose: 600 mg Documented by: Lorazepam (Lorazepam 0.5 Mg Tablet) 0.25 mg PO TID PRN PRN Reason: akathesia Last Admin: 11/04/21 13:29 Dose: 0.25 mg Documented by: Magnesium Hydroxide (Milk Of Magnesia 30 Ml Oral.Susp) 30 ml PO DAILY PRN PRN Reason: Constipation Last Admin: 10/15/21 12:58 Dose: 30 ml Documented by: Melatonin (Melatonin 3 Mg Tablet) 3 mg PO BEDTIME PRN PRN Reason: CONTINUED insomnia Last Admin: 11/04/21 04:03 Dose: 3 mg Documented by: Melatonin (Melatonin 3 Mg Tablet) 3 mg PO BEDTIME SARABJIT Last Admin: 11/03/21 20:05 Dose: 3 mg Documented by: Pharmacy Consult (Consult Rx Perform Med Rec) 1 each MISCELLANE ONCE PRN PRN Reason: Consult order Polyethylene Glycol (Polyethylene Glycol 3350 17 Gm Powd.Pack) 17 gm PO BID PRN PRN Reason: Constipation Last Admin: 11/04/21 08:01 Dose: 17 gm Documented by: Propranolol HCl (Propranolol Hcl 10 Mg Tablet) 10 mg PO BEDTIME SARABJIT; Protocol Last Admin: 11/03/21 20:04 Dose: 10 mg Documented by: Saliva Substitute (Dry Mouth Medina 60 Ml Medina) 1 spray MUCOUS MEM Q2H PRN PRN Reason: Dry Mouth Last Admin: 10/21/21 19:31 Dose: 1 spray Documented by: Allergies Allergies Allergy/AdvReac Type Severity Reaction Status Date / Time cashew nut Allergy Severe ANAPHYLAXIS Verified 10/04/21 19:44 peanut [Peanut] Allergy Severe ANAPHALAXIS Verified 10/04/21 19:44 Assessment & Plan Assessment & Plan (1) De Quervain's tenosynovitis: Status: Acute Code(s): M65.4 - Radial styloid tenosynovitis [de Quervain] Plan IMPRESSION: Patient is a 61-year-old female with history of Delusional disorder (r/o schizophrenia), on a [facility] and with her brother as guardian, who presents via EMS following a wellness check by [facility] staff and police who found patient's apartment in a disheveled state and patient with paranoid delusions that her food was poisoned, there were bombs in the toilet and that [facility] staff was a part of the [place] secret police who were planning her demise, in the face of going off her? Prolixin Decanoate this past December.? On admission she denied any SI, HI, AVH or any delusional thinking; she also denied that any of the reported events or findings from [facility]'s wellness check were true and denied that she has a mental illness.? Patient refused to sign in and was on a 12 B.? Patient was willing to take Prolixin p.o. She lacks all insight. HOSPITAL COURSE: Patient continues to lack all insight and has become verbally aggressive physically posturing with menacing affect, intruding into staff's personal space, verbally harassing staff and making it difficult for staff to carry out work on the unit.? Patient's behaviors have become unsafe; she refuses to increase p.o. Prolixin and for staff and milieu safety will order Prolixin Decanoate 25 mg IM which is on her Marquis and which her guardian says patient needs and agrees she should get. -signed CV after talking with guardian; also agreed with Prolixin Decanoate -patient superficially polite but easily triggered and intense anger; remains with paranoid, persecutory delusions and some grandiosity 09/30 patient remains superficially polite; guarded.? She has not been challenging staff.? Patient reports she is tired but denies any symptoms; agrees to increasing Prolixin p.o. (which is on Marquis and cannot be refused) -Prolixin 25 mg decanoate is roughly equivalent to getting Prolixin 20 mg p.o. daily; additionally p.o. doses are overlapped for several weeks after restarting Decanoate.? Patient gets Decanoate every 2 weeks and literature typically uses q. 3 weeks for conversion so will titrate p.o. Prolixin to about 15 mg daily.? Discussed with patient who agrees 10/02 remains superficially polite; is guarded and continues to have paranoid, persecutory delusions 10/05 remains superficially polite; is guarded and continues to have paranoid, persecutory delusions but lessening a bit in intensity 10/07 remains superficially polite; is guarded; denies all psychiatric symptoms, though intermittently internally preoccupied; pt has denied paranoid, persecutory delusions to commercial loan underwriter despite expressing them to others. Patient complains of some visual changes and akathisia which she attributes to restarting Prolixin and says this is very common for her when she restarts it or has a dose increase. Of note, commercial loan underwriter does not notice any akathisia, tremor or other EPS symptoms however it's possible that patient may be experiencing a subclinical amount of EPS. 10/09Patient reports akathisia and tardive dyskinesia from the Prolixin.? Patient shows commercial loan underwriter her mouth which she is moving and says she has some mouth and tongue movements.? She c/o restlessness in her legs and is thus walking the hallways.? To that end she asks if a.m. dose of Prolixin committee lowered to 2.5 mg to which commercial loan underwriter agrees.? At this point it is difficult to say if patient is having actual tardive dyskinesia or if she is feigning TD to lower her p.o. Prolixin dose, which her guardian/brother has reported she may do.? When looking at her mouth patient is clearly making it move and when distracted, mouth movements observed to by normal; similar observation made regarding akathesia; however it's possible that there could also be involuntarily mouth movent as well. Guardian says she has never had TD in the past.? She does not want any additional medications to mitigate this possible side effect.? Patient requests p.o. Prolixin to be discontinued and wants to just remain on the Decanoate.? Agricultural Produce Packer agrees with this plan.? While it is customary to overlap p.o. Prolixin with Decanoate, as it can take considerable time for Decanoate to reach steady state, it is however possible for decanoate to still become effective without p.o., though it will likely takes longer. 10/11 says TD and akathesia are significantly improved since dc'ing PO prolixin (none observed). She remains affable but guarded. Pt denies all psychiatric symptoms. She does not want to discuss events that occurred around admission or discuss hx diagnosis which she typically disputes, which makes it difficult to assess progress. Continue to rely on her guardians approximation of patients progress. However, off prolixin PO, patient might need to remain longer on unit; will discuss w/ guardian. 10/19 no change in presentation; no TD or akathisia observed; patient reports some mild intermittent tongue fasciculations but says it is much better.? Remains amenable to treatment plan.? Given patient's read a since will continue to reach out to guardian to help assess patient's stability 10/20Patient reports frustrating TD and restlessness.? Yesterday patient said it had been minimal for several days however she reports the last night she had much trouble sleeping due to feeling her legs are restless and today she demonstrates that she has a hard time sitting still.? Agricultural Produce Packer administered AIMS test: 10 Patient says that she is had the same symptoms for the past 5 years on Prolixin which have been about this level of intensity (patient has given some conflicting reports regarding his history and the week prior patient said that her history only included TD/akathisia at the initiation or restarting of Prolixin but that it eventually resolved on its own).? Agricultural Produce Packer reviewed medication options and listed the medications she has tried or considered reporting they are either ineffective, cause weight gain or also caused TD and does not want to switch meds.? She does not want any medication to ameliorate the symptoms including Ingrezza or propranolol, saying she rather tolerate these symptoms than have to take another medication.? Agricultural Produce Packer said he would discuss this with her brother/guardian.? However patient agrees to remain on this medication going forward.? Of note, commercial loan underwriter observed tobias TD symptoms during aims test even when distracted by other tasks. TD does wax and wane. 10/21 no insight; wants off meds due to med side-effect of TD and restlessness. other providers whov'e had her in past remember some mild TD; commercial loan underwriter and staff speculate some of her symptoms may be exaggerated for effect, but as mentioned she has been observed with symptoms even when perceived to be alone. 10/24 patient reports she is miserable with medication side effects of slowed speech slow, slurred words, feeling drowsy.? Today she did not complain of TD or akathisia but the opposite.? Of note, patient did have slowed speech when speaking with commercial loan underwriter and slow movements of her body, however moments earlier when she was talking with social media job titles in the hallway she was using normal speech and there was no psychomotor retardation.? Again commercial loan underwriter agrees that there is some amount of TD/akathisia or experience of restlessness and her body however these and other symptoms seem to be exaggerated in order to make a case for getting off Prolixin as the symptoms seem to vacillate between moderate/severe to absent depending on with whom she is speaking.? Patient continues to refuse any other medications to ameliorate symptoms; she also refuses to consider any other antipsychotics that may have less side effects. Patient does not have any insight into her history of behaviors or delusions and currently, cannot accurately reflect on whether she ultimately enjoyed her life off medications. Agricultural Produce Packer has discussed this case with 2 other psychiatrists who have known patient over the years and who report that off medications she is floridly psychotic and on medication she has been able to her life at some level. Given this collateral information as well as commercial loan underwriter's own observations when patient was 1st admitted, it remains commercial loan underwriter's opinion that off medications and without significant help in the community, including a guardian, she will end up homeless and terrified. -will organized family meeting with social media job titles and Kong, her brother/guardian -patient is due for her 3rd installment of Prolixin Decanoate; initially it was hoped she could perhaps discharge soon after she received this 3rd dose.? However,? given her poor insight, her adamant, persistent request to have medications discontinued, and her guardians report that once she becomes stable, she feels and expresses the need to be on medications, it is commercial loan underwriter's opinion that if patient were to be discharged at this time she would very quickly decompensate and be unable to function in the community and end up homeless, hungry, scared and overwhelmed by her delusions.? Guardian fully agrees.? For patient's safety, she needs to remain on the unit even after getting her 3rd dose of Prolixin Decanoate until she returns to her minimal baseline where she accepts the need for the medication.? Regarding? medication side effects, as mentioned above patient likely has some amount of TD and perhaps restlessness however patient seems to exaggerate her symptoms depending on her audience. 2/3 patient says some minor reduction in TD/restlessness since lowering Prolixin dose. -To another staff patient said I have some kind of delusional disorder which is the 1st time commercial loan underwriter has heard of this patient referring to actually having? a psychiatric disorder.? / Patient disclosed To commercial loan underwriter that she think she has a delusional disorder and said that it is confusing to her since something is a delusion and some things are real; decided not to contest Benitez regarding 10/29: Pt is requesting prolixin level, A1c, lipids, and B12 labs. Reviewed medications to help with akathesia, will consider low dose ativan. 10/31 discussed labs with borderline cholesterol levels; patient does not want any medication but will work on diet and exercise to lower cholesterol; also discussed wrist tenderness which was diagnosed as Left de Quervain tenosynovitis. Orthopedist Dr. Maki Foss will follow up/tx with patient (see below).? Patient asking for hold off on submitting documents for Marquis order until Prolixin level returns; commercial loan underwriter will discuss with family lawyer and guardian as well as documentation is timely and lab results may take several days or longer to return 11/01 commercial loan underwriter reviewed literature and discussed with clinical pharmacist; there is room for Prolixin levels to guide treatment however dosing typically remains a clinical decision, with a goal to use the lowest effective dose Overall patient has improved since admission.? She has the insight to understand she does struggle with delusions and can have a hard time distinguishing between what is real and what is paranoid delusion; she also decided not to contest her Marquis order this year, though she did want to lower her by monthly dose.? Agricultural Produce Packer will continue to discuss with guardian however patient seems to be approaching baseline given this improved insight. 11/04 patient tired today. She said hand feels much better after getting injection from Ortho. Agricultural Produce Packer talked with her about her medication regimen and asked which she thinks about it. She says that she plans on continuing to take it. Agricultural Produce Packer asked why and she said because it was such a catastrophe this past time. In commercial loan underwriter's opinion this acknowledgement is what team and guardian have been waiting to hear and hopefully indicates that patient has insight into her need for medication has reached baseline. Will discuss with guardian. Likely patient can be discharged soon after her next Prolixin Decanoate injection. PLAN: pt signed CV Q 15 minute checks Patient is on a?community Marquis?extended and in effect until Nov 11, 2021; resubmitted around 11/01 with some changes Patient has a?guardian, her brother Kong Guillaume It is writers strong opinion that patient needs to remain on a Marquis order in order for her function in the community; it's also writers strong opinion that she continues to need a guardian as she has no insight into her condition (which is impaired even at baseline) and needs ongoing help in multiple areas in order to function in the community. 1.Schizophrenia, paranoid type (pt carries this dx) -LOWERED Prolixin Dec 17mg IM due on 10/26/21 (last dose of Prolixin Decanoate 25 mg IM received on 10/12/21); lowered to see if it can mitigate some of patient's reported TD/restlessness/akathisia -Propranolol 10mg qhs for EPS, help with sleep -patient on community Marquis and cannot refuse Prolixin -Patient? refuses any meds to help migate symptoms and won't consider alternatives to Prolixin (such as Clozapine which is very low risk for TD, but risk to causes wt gain). -DC'd PO Prolixin due to c/o TD and akathesia (dc'd on 10/10); typically, overalap Prolixin PO with Decanoate? (Decanoate 25 mg Q 2/3 weeks is roughly equivalent to Prolixin p.o. 15-20 mg daily Prolixin Dec is listed on her Marquis (CANNOT REFUSE), reviewed by commercial loan underwriter and specified by her guardian (literature reports decanoate q. 3 weeks or longer has been as effective as q.2 weeks which is something patient can discuss with outpatient provider but is something that may reduce side-effects and thus increase adherence) -DC'd 1:1 pt not intrusive or interfering with others patients treatment) 2.?Left de Quervain tenosynovitis (Left hand anatomical snuff box tenderness) Patient reports she has point tenderness on her left hand at the anatomical snuffbox which was present before admission; says has worsened; denies any hx of fall or other hand trauma.? On examination patient point tenderness in left anatomical snuffbox; no tenderness elsewhere -left hand/wrist xray unremarkable, no fracture; -pain decreased with ibuprofen -Ortho consult got another set of images and dx Left de Quervain tenosynovitis who writes: ?assessment and plan: ? 1. Left de Quervain tenosynovitis ?I educated the patient about this condition ?we discussed the importance of activity modification, and avoiding activities that aggravate this condition. ? We discussed the risks and benefits of a steroid injection and she wished to proceed with a steroid injection. Injection #1: The risks and benefits of a steroid injection including but not limited to risk of damage to blood vessels, nerves, tendons, infection, skin bleaching, failure to improve symptoms, increased pain, and possible need for further injections or other intervention were discussed with the patient and the patient wishes to proceed with the steroid injection. Once consent was obtained, I sterilely prepped the area over the ? Left 1st dorsal compartment..? I then injected the ? First dorsal compartment tendon sheath with a combination of 1 mL of dexamethasone (4mg/ml), and? 0.5% plain Marcaine.? The patient tolerated the procedure well with no complications. She had some good early relief of symptoms following the injection. ?We are unable to give her our usual Comfort Cool neoprene thumb spica splint because she is here on the behavioral health floor and it? can be stretched out to more? than 12 in in length. If the patient continues to have? painful symptoms 8 weeks following this injection, they may call to schedule appointment to be seen? for possible 2nd injection, or to talk about possible surgery. I spent minutes with the patient and/or on the patient floor today, greater than?50% of which was spent counseling/coordinating care. Reason for contiued inpatient stay Substantial Risk for: med/psych decompensation
--- NOTE | 2021-11-04 22:04 | PC.NURSE ---
pt refused propranolol , states its for akathesia and I dont have it any more
[2021-11-05] MEDS: Melatonin 3 MG TABLET PO ×2 (03:16→20:04)
--- NOTE | 2021-11-05 11:53 | HO.PSYCHPN ---
Subjective Subjective Date of Service: 11/05/21 Reason For Visit: SECTION 12, THOUGHTS TO HARM OTHERS Interim History: Quietly social, visable, denies concerns, observant in milieu. More interactive with her peers. No questions regarding regime today. Medication Compliance: Yes Side effects from medications: No Attending Groups: No Review of Systems Acute medical concerns: No Medical Review of Systems: unchanged Review of Systems Psychiatric: Reports no additional psychiatric complaints Mental Status Exam Mental Status Exam Patient Appearance: Appropriate Patient Orientation: Person, Place, Time and Situation Level of Consciousness: Alert Patient Behavior: Talkative and Good Eye Contact Mood Description: Calm Affect Description: Calm Patient Cognition Impaired: No Ability to Follow Directions: Good Speech Pattern: Spontaneous Speech Memory Description: Episodic Impaired Hallucinations: None Delusions: Not Present Thought Process: Intact ( I have a delusional disorder, but the treatment is helping me ) Thought Content: positive for [place] and positive for Suicidal Ideation (denies) Judgement: Fair Diagnostics Vital Signs (24Hr): BMI result Body Mass Index 18.6 Labs Results: 09/22/21 17:48 09/22/21 17:48 Labs: Laboratory Results - last 48 hr 10/30/21 09:33 Ref Lab Test Result See Note Imaging Radiology Impressions: ITS Impressions Hand X-Ray 10/27/21 14:31 IMPRESSION: Unremarkable appearance of the left hand. No focal abnormality in the region of concern. Wrist X-Ray 10/31/21 10:50 IMPRESSION: No abnormal findings Medications Medications Current Medications Acetaminophen (Acetaminophen 325 Mg Tablet) 650 mg PO Q6H PRN PRN Reason: Headache/Pain Mild Scale (1-3) Last Admin: 11/03/21 14:14 Dose: 650 mg Documented by: Al Hydroxide/Mg Hydroxide (Magnesium Hydrox/Alum Hydrox 30 Ml Oral.Susp) 30 ml PO Q6H PRN PRN Reason: Heartburn/Nausea Fluphenazine Decanoate (Fluphenazine Decanoate 25 Mg/Ml 5 Ml Vial) 17 mg IM Q14D@0900 SARABJIT Last Admin: 10/26/21 09:02 Dose: 17 mg Documented by: Ibuprofen (Ibuprofen 600 Mg Tablet) 600 mg PO Q6H PRN PRN Reason: Pain, Mild (Pain Scale 1-3) Last Admin: 10/30/21 06:42 Dose: 600 mg Documented by: Lorazepam (Lorazepam 0.5 Mg Tablet) 0.25 mg PO TID PRN PRN Reason: akathesia Last Admin: 11/04/21 13:29 Dose: 0.25 mg Documented by: Magnesium Hydroxide (Milk Of Magnesia 30 Ml Oral.Susp) 30 ml PO DAILY PRN PRN Reason: Constipation Last Admin: 10/15/21 12:58 Dose: 30 ml Documented by: Melatonin (Melatonin 3 Mg Tablet) 3 mg PO BEDTIME PRN PRN Reason: CONTINUED insomnia Last Admin: 11/05/21 03:16 Dose: 3 mg Documented by: Melatonin (Melatonin 3 Mg Tablet) 3 mg PO BEDTIME SARABJIT Last Admin: 11/04/21 21:12 Dose: 3 mg Documented by: Pharmacy Consult (Consult Rx Perform Med Rec) 1 each MISCELLANE ONCE PRN PRN Reason: Consult order Polyethylene Glycol (Polyethylene Glycol 3350 17 Gm Powd.Pack) 17 gm PO BID PRN PRN Reason: Constipation Last Admin: 11/04/21 08:01 Dose: 17 gm Documented by: Propranolol HCl (Propranolol Hcl 10 Mg Tablet) 10 mg PO BEDTIME SARABJIT; Protocol Last Admin: 11/04/21 22:01 Dose: Not Given Documented by: Saliva Substitute (Dry Mouth [place] 60 Ml [place]) 1 spray MUCOUS MEM Q2H PRN PRN Reason: Dry Mouth Last Admin: 10/21/21 19:31 Dose: 1 spray Documented by: Allergies Allergies Allergy/AdvReac Type Severity Reaction Status Date / Time cashew nut Allergy Severe ANAPHYLAXIS Verified 10/04/21 19:44 peanut [Peanut] Allergy Severe ANAPHALAXIS Verified 10/04/21 19:44 Assessment & Plan Assessment & Plan (1) De Quervain's tenosynovitis: Status: Acute Code(s): M65.4 - Radial styloid tenosynovitis [de Quervain] Plan IMPRESSION: Patient is a 61-year-old female with history of Delusional disorder (r/o schizophrenia), on a community Marquis and with her brother as guardian, who presents via EMS following a wellness check by [facility] staff and police who found patient's apartment in a disheveled state and patient with paranoid delusions that her food was poisoned, there were bombs in the toilet and that [facility] staff was a part of the [place] secret police who were planning her demise, in the face of going off her? Prolixin Decanoate this past December.? On admission she denied any SI, HI, AVH or any delusional thinking; she also denied that any of the reported events or findings from [facility]'s wellness check were true and denied that she has a mental illness.? Patient refused to sign in and was on a 12 B.? Patient was willing to take Prolixin p.o. She lacks all insight. HOSPITAL COURSE: Patient continues to lack all insight and has become verbally aggressive physically posturing with menacing affect, intruding into staff's personal space, verbally harassing staff and making it difficult for staff to carry out work on the unit.? Patient's behaviors have become unsafe; she refuses to increase p.o. Prolixin and for staff and milieu safety will order Prolixin Decanoate 25 mg IM which is on her Marquis and which her guardian says patient needs and agrees she should get. -signed CV after talking with guardian; also agreed with Prolixin Decanoate -patient superficially polite but easily triggered and intense anger; remains with paranoid, persecutory delusions and some grandiosity 09/30 patient remains superficially polite; guarded.? She has not been challenging staff.? Patient reports she is tired but denies any symptoms; agrees to increasing Prolixin p.o. (which is on Marquis and cannot be refused) -Prolixin 25 mg decanoate is roughly equivalent to getting Prolixin 20 mg p.o. daily; additionally p.o. doses are overlapped for several weeks after restarting Decanoate.? Patient gets Decanoate every 2 weeks and literature typically uses q. 3 weeks for conversion so will titrate p.o. Prolixin to about 15 mg daily.? Discussed with patient who agrees 10/02 remains superficially polite; is guarded and continues to have paranoid, persecutory delusions 10/05 remains superficially polite; is guarded and continues to have paranoid, persecutory delusions but lessening a bit in intensity 10/07 remains superficially polite; is guarded; denies all psychiatric symptoms, though intermittently internally preoccupied; pt has denied paranoid, persecutory delusions to narrative writer despite expressing them to others. Patient complains of some visual changes and akathisia which she attributes to restarting Prolixin and says this is very common for her when she restarts it or has a dose increase. Of note, narrative writer does not notice any akathisia, tremor or other EPS symptoms however it's possible that patient may be experiencing a subclinical amount of EPS. 10/09Patient reports akathisia and tardive dyskinesia from the Prolixin.? Patient shows narrative writer her mouth which she is moving and says she has some mouth and tongue movements.? She c/o restlessness in her legs and is thus walking the hallways.? To that end she asks if a.m. dose of Prolixin committee lowered to 2.5 mg to which narrative writer agrees.? At this point it is difficult to say if patient is having actual tardive dyskinesia or if she is feigning TD to lower her p.o. Prolixin dose, which her guardian/brother has reported she may do.? When looking at her mouth patient is clearly making it move and when distracted, mouth movements observed to by normal; similar observation made regarding akathesia; however it's possible that there could also be involuntarily mouth movent as well. Guardian says she has never had TD in the past.? She does not want any additional medications to mitigate this possible side effect.? Patient requests p.o. Prolixin to be discontinued and wants to just remain on the Decanoate.? Combination Window Installer agrees with this plan.? While it is customary to overlap p.o. Prolixin with Decanoate, as it can take considerable time for Decanoate to reach steady state, it is however possible for decanoate to still become effective without p.o., though it will likely takes longer. 10/11 says TD and akathesia are significantly improved since dc'ing PO prolixin (none observed). She remains affable but guarded. Pt denies all psychiatric symptoms. She does not want to discuss events that occurred around admission or discuss hx diagnosis which she typically disputes, which makes it difficult to assess progress. Continue to rely on her guardians approximation of patients progress. However, off prolixin PO, patient might need to remain longer on unit; will discuss w/ guardian. 10/19 no change in presentation; no TD or akathisia observed; patient reports some mild intermittent tongue fasciculations but says it is much better.? Remains amenable to treatment plan.? Given patient's read a since will continue to reach out to guardian to help assess patient's stability 10/20Patient reports frustrating TD and restlessness.? Yesterday patient said it had been minimal for several days however she reports the last night she had much trouble sleeping due to feeling her legs are restless and today she demonstrates that she has a hard time sitting still.? Combination Window Installer administered AIMS test: 10 Patient says that she is had the same symptoms for the past 5 years on Prolixin which have been about this level of intensity (patient has given some conflicting reports regarding his history and the week prior patient said that her history only included TD/akathisia at the initiation or restarting of Prolixin but that it eventually resolved on its own).? Combination Window Installer reviewed medication options and listed the medications she has tried or considered reporting they are either ineffective, cause weight gain or also caused TD and does not want to switch meds.? She does not want any medication to ameliorate the symptoms including Ingrezza or propranolol, saying she rather tolerate these symptoms than have to take another medication.? Combination Window Installer said he would discuss this with her brother/guardian.? However patient agrees to remain on this medication going forward.? Of note, narrative writer observed tobias TD symptoms during aims test even when distracted by other tasks. TD does wax and wane. 10/21 no insight; wants off meds due to med side-effect of TD and restlessness. other providers whov'e had her in past remember some mild TD; narrative writer and staff speculate some of her symptoms may be exaggerated for effect, but as mentioned she has been observed with symptoms even when perceived to be alone. 10/24 patient reports she is miserable with medication side effects of slowed speech slow, slurred words, feeling drowsy.? Today she did not complain of TD or akathisia but the opposite.? Of note, patient did have slowed speech when speaking with narrative writer and slow movements of her body, however moments earlier when she was talking with social media senior associate in the hallway she was using normal speech and there was no psychomotor retardation.? Again narrative writer agrees that there is some amount of TD/akathisia or experience of restlessness and her body however these and other symptoms seem to be exaggerated in order to make a case for getting off Prolixin as the symptoms seem to vacillate between moderate/severe to absent depending on with whom she is speaking.? Patient continues to refuse any other medications to ameliorate symptoms; she also refuses to consider any other antipsychotics that may have less side effects. Patient does not have any insight into her history of behaviors or delusions and currently, cannot accurately reflect on whether she ultimately enjoyed her life off medications. Combination Window Installer has discussed this case with 2 other psychiatrists who have known patient over the years and who report that off medications she is floridly psychotic and on medication she has been able to her life at some level. Given this collateral information as well as narrative writer's own observations when patient was 1st admitted, it remains narrative writer's opinion that off medications and without significant help in the community, including a guardian, she will end up homeless and terrified. -will organized family meeting with social media senior associate and Kong, her brother/guardian -patient is due for her 3rd installment of Prolixin Decanoate; initially it was hoped she could perhaps discharge soon after she received this 3rd dose.? However,? given her poor insight, her adamant, persistent request to have medications discontinued, and her guardians report that once she becomes stable, she feels and expresses the need to be on medications, it is narrative writer's opinion that if patient were to be discharged at this time she would very quickly decompensate and be unable to function in the community and end up homeless, hungry, scared and overwhelmed by her delusions.? Guardian fully agrees.? For patient's safety, she needs to remain on the unit even after getting her 3rd dose of Prolixin Decanoate until she returns to her minimal baseline where she accepts the need for the medication.? Regarding? medication side effects, as mentioned above patient likely has some amount of TD and perhaps restlessness however patient seems to exaggerate her symptoms depending on her audience. 2/3 patient says some minor reduction in TD/restlessness since lowering Prolixin dose. -To another staff patient said I have some kind of delusional disorder which is the 1st time narrative writer has heard of this patient referring to actually having? a psychiatric disorder.? 2/4 Patient disclosed To narrative writer that she think she has a delusional disorder and said that it is confusing to her since something is a delusion and some things are real; decided not to contest Marquis regarding 10/29: Pt is requesting prolixin level, A1c, lipids, and B12 labs. Reviewed medications to help with akathesia, will consider low dose ativan. 10/31 discussed labs with borderline cholesterol levels; patient does not want any medication but will work on diet and exercise to lower cholesterol; also discussed wrist tenderness which was diagnosed as Left de Quervain tenosynovitis. Orthopedist Dr. Maki Foss will follow up/tx with patient (see below).? Patient asking for hold off on submitting documents for Marquis order until Prolixin level returns; narrative writer will discuss with form drafter and guardian as well as documentation is timely and lab results may take several days or longer to return 11/01 narrative writer reviewed literature and discussed with clinical pharmacist; there is room for Prolixin levels to guide treatment however dosing typically remains a clinical decision, with a goal to use the lowest effective dose Overall patient has improved since admission.? She has the insight to understand she does struggle with delusions and can have a hard time distinguishing between what is real and what is paranoid delusion; she also decided not to contest her Marquis order this year, though she did want to lower her by monthly dose.? Combination Window Installer will continue to discuss with guardian however patient seems to be approaching baseline given this improved insight. 11/04 patient tired today. She said hand feels much better after getting injection from Ortho. Combination Window Installer talked with her about her medication regimen and asked which she thinks about it. She says that she plans on continuing to take it. Combination Window Installer asked why and she said because it was such a catastrophe this past time. In narrative writer's opinion this acknowledgement is what team and guardian have been waiting to hear and hopefully indicates that patient has insight into her need for medication has reached baseline. Will discuss with guardian. Likely patient can be discharged soon after her next Prolixin Decanoate injection. 11/05/21: Weekend coverage: Continue current regime. PLAN: pt signed CV Q 15 minute checks Patient is on a?community Marquis?extended and in effect until Nov 11, 2021; resubmitted around 11/01 with some changes Patient has a?guardian, her brother Kong Guillaume It is writers strong opinion that patient needs to remain on a Marquis order in order for her function in the community; it's also writers strong opinion that she continues to need a guardian as she has no insight into her condition (which is impaired even at baseline) and needs ongoing help in multiple areas in order to function in the community. 1.Schizophrenia, paranoid type (pt carries this dx) -LOWERED Prolixin Dec 17mg IM due on 10/26/21 (last dose of Prolixin Decanoate 25 mg IM received on 10/12/21); lowered to see if it can mitigate some of patient's reported TD/restlessness/akathisia -Propranolol 10mg qhs for EPS, help with sleep -patient on community Marquis and cannot refuse Prolixin -Patient? refuses any meds to help migate symptoms and won't consider alternatives to Prolixin (such as Clozapine which is very low risk for TD, but risk to causes wt gain). -DC'd PO Prolixin due to c/o TD and akathesia (dc'd on 10/10); typically, overalap Prolixin PO with Decanoate? (Decanoate 25 mg Q 2/3 weeks is roughly equivalent to Prolixin p.o. 15-20 mg daily Prolixin Dec is listed on her Marquis (CANNOT REFUSE), reviewed by narrative writer and specified by her guardian (literature reports decanoate q. 3 weeks or longer has been as effective as q.2 weeks which is something patient can discuss with outpatient provider but is something that may reduce side-effects and thus increase adherence) -DC'd 1:1 pt not intrusive or interfering with others patients treatment) 2.?Left de Quervain tenosynovitis (Left hand anatomical snuff box tenderness) Patient reports she has point tenderness on her left hand at the anatomical snuffbox which was present before admission; says has worsened; denies any hx of fall or other hand trauma.? On examination patient point tenderness in left anatomical snuffbox; no tenderness elsewhere -left hand/wrist xray unremarkable, no fracture; -pain decreased with ibuprofen -Ortho consult got another set of images and dx Left de Quervain tenosynovitis who writes: ?assessment and plan: ? 1. Left de Quervain tenosynovitis ?I educated the patient about this condition ?we discussed the importance of activity modification, and avoiding activities that aggravate this condition. ? We discussed the risks and benefits of a steroid injection and she wished to proceed with a steroid injection. Injection #1: The risks and benefits of a steroid injection including but not limited to risk of damage to blood vessels, nerves, tendons, infection, skin bleaching, failure to improve symptoms, increased pain, and possible need for further injections or other intervention were discussed with the patient and the patient wishes to proceed with the steroid injection. Once consent was obtained, I sterilely prepped the area over the ? Left 1st dorsal compartment..? I then injected the ? First dorsal compartment tendon sheath with a combination of 1 mL of dexamethasone (4mg/ml), and? 0.5% plain Marcaine.? The patient tolerated the procedure well with no complications. She had some good early relief of symptoms following the injection. ?We are unable to give her our usual Comfort Cool neoprene thumb spica splint because she is here on the behavioral health floor and it? can be stretched out to more? than 12 in in length. If the patient continues to have? painful symptoms 8 weeks following this injection, they may call to schedule appointment to be seen? for possible 2nd injection, or to talk about possible surgery. I spent 15 minutes with the patient and/or on the patient floor today, greater than?50% of which was spent counseling/coordinating care. Informed Consent: understands Reason for contiued inpatient stay Substantial Risk for: inability to function and rapid decompensation
[2021-11-05] MEDS: LORazepam 0.5 MG TABLET 0.25 MG PO (12:29)
[2021-11-05 18:00] VITALS: BP 159/77; PULSE 57; RESP 16; TEMP 36.3; O2SAT 97
[2021-11-05] MEDS: Propranolol HCL 10 MG TABLET PO (20:04)
[2021-11-06] MEDS: Melatonin 3 MG TABLET PO (02:14)
[2021-11-06] MEDS: polyethylene glycoL 3350 17 GM POWD.PACK PO (08:14)
--- NOTE | 2021-11-06 09:25 | P.PNPSI_ITS ---
Subjective Subjective Date of Service: 11/06/21 Reason For Visit: SECTION 12, THOUGHTS TO HARM OTHERS Interim History: Listening to music on headphones in milieu. Asks for her prolixin level results. Requests to increase Melatonin to 6 mg hs and keep prn. Engaging, approaches sign writer letterer or painter a few times today and initiated discussion. Improved eye contact. Medication Compliance: Yes Side effects from medications: No Attending Groups: No Review of Systems Acute medical concerns: No Medical Review of Systems: unchanged Review of Systems Psychiatric: Reports no additional psychiatric complaints Mental Status Exam Mental Status Exam Patient Appearance: Appropriate Patient Orientation: Person, Place, Time and Situation Level of Consciousness: Alert Patient Behavior: Talkative and Good Eye Contact Mood Description: Calm Affect Description: Calm Patient Cognition Impaired: No Ability to Follow Directions: Good Speech Pattern: Spontaneous Speech Memory Description: Episodic Impaired Hallucinations: None Delusions: Not Present Thought Process: Intact ( I have a delusional disorder, but the treatment is helping me ) Thought Content: positive for [place] and positive for Suicidal Ideation (denie s) Judgement: Fair Diagnostics Vital Signs (24Hr): Vital Signs - 24 hr 11/05/21 18:00 Temperature 97.4 F Pulse Rate 57 Respiratory Rate 16 Blood Pressure 159/77 H Pulse Oximetry 97 BMI result Body Mass Index 18.6 Labs Results: 09/22/21 17:48 09/22/21 17:48 Labs: Laboratory Results - last 48 hr 10/30/21 09:33 Ref Lab Test Result See Note Imaging Radiology Impressions: ITS Impressions Hand X-Ray 10/27/21 14:31 IMPRESSION: Unremarkable appearance of the left hand. No focal abnormality in the region of concern. Wrist X-Ray 10/31/21 10:50 IMPRESSION: No abnormal findings Medications Medications Current Medications Acetaminophen (Acetaminophen 325 Mg Tablet) 650 mg PO Q6H PRN PRN Reason: Headache/Pain Mild Scale (1-3) Last Admin: 11/03/21 14:14 Dose: 650 mg Documented by: Al Hydroxide/Mg Hydroxide (Magnesium Hydrox/Alum Hydrox 30 Ml Oral.Susp) 30 ml PO Q6H PRN PRN Reason: Heartburn/Nausea Fluphenazine Decanoate (Fluphenazine Decanoate 25 Mg/Ml 5 Ml Vial) 17 mg IM Q14D@0900 SARABJIT Last Admin: 10/26/21 09:02 Dose: 17 mg Documented by: Ibuprofen (Ibuprofen 600 Mg Tablet) 600 mg PO Q6H PRN PRN Reason: Pain, Mild (Pain Scale 1-3) Last Admin: 10/30/21 06:42 Dose: 600 mg Documented by: Lorazepam (Lorazepam 0.5 Mg Tablet) 0.25 mg PO TID PRN PRN Reason: akathesia Last Admin: 11/05/21 12:29 Dose: 0.25 mg Documented by: Magnesium Hydroxide (Milk Of Magnesia 30 Ml Oral.Susp) 30 ml PO DAILY PRN PRN Reason: Constipation Last Admin: 10/15/21 12:58 Dose: 30 ml Documented by: Melatonin (Melatonin 3 Mg Tablet) 3 mg PO BEDTIME PRN PRN Reason: CONTINUED insomnia Last Admin: 11/06/21 02:14 Dose: 3 mg Documented by: Melatonin (Melatonin 3 Mg Tablet) 3 mg PO BEDTIME SARABJIT Last Admin: 11/05/21 20:04 Dose: 3 mg Documented by: Pharmacy Consult (Consult Rx Perform Med Rec) 1 each MISCELLANE ONCE PRN PRN Reason: Consult order Polyethylene Glycol (Polyethylene Glycol 3350 17 Gm Powd.Pack) 17 gm PO BID PRN PRN Reason: Constipation Last Admin: 11/06/21 08:14 Dose: 17 gm Documented by: Propranolol HCl (Propranolol Hcl 10 Mg Tablet) 10 mg PO BEDTIME SARABJIT; Protocol Last Admin: 11/05/21 20:04 Dose: 10 mg Documented by: Saliva Substitute (Dry Mouth [place] 60 Ml [place]) 1 spray MUCOUS MEM Q2H PRN PRN Reason: Dry Mouth Last Admin: 10/21/21 19:31 Dose: 1 spray Documented by: Allergies Allergies Allergy/AdvReac Type Severity Reaction Status Date / Time cashew nut Allergy Severe ANAPHYLAXIS Verified 10/04/21 19:44 peanut [Peanut] Allergy Severe ANAPHALAXIS Verified 10/04/21 19:44 Assessment & Plan Assessment & Plan (1) De Quervain's tenosynovitis: Status: Acute Code(s): M65.4 - Radial styloid tenosynovitis [de Quervain] Plan IMPRESSION: Patient is a 61-year-old female with history of Delusional disorder (r/o schizophrenia), on a community Marquis and with her brother as guardian, who presents via EMS following a wellness check by [facility] staff and police who found patient's apartment in a disheveled state and patient with paranoid delusions that her food was poisoned, there were bombs in the toilet and that [facility] staff was a part of the [place] secret police who were planning her demise, in the face of going off her? Prolixin Decanoate this past December.? On admission she denied any SI, HI, AVH or any delusional thinking; she also denied that any of the reported events or findings from [facility]'s wellness check were true and denied that she has a mental illness.? Patient refused to sign in and was on a 12 B.? Patient was willing to take Prolixin p.o. She lacks all insight. HOSPITAL COURSE: Patient continues to lack all insight and has become verbally aggressive physically posturing with menacing affect, intruding into staff's personal space, verbally harassing staff and making it difficult for staff to carry out work on the unit.? Patient's behaviors have become unsafe; she refuses to increase p.o. Prolixin and for staff and milieu safety will order Prolixin Decanoate 25 mg IM which is on her Marquis and which her guardian says patient needs and agrees she should get. -signed CV after talking with guardian; also agreed with Prolixin Decanoate -patient superficially polite but easily triggered and intense anger; remains with paranoid, persecutory delusions and some grandiosity 09/30 patient remains superficially polite; guarded.? She has not been challenging staff.? Patient reports she is tired but denies any symptoms; agrees to increasing Prolixin p.o. (which is on Marquis and cannot be refused) -Prolixin 25 mg decanoate is roughly equivalent to getting Prolixin 20 mg p.o. daily; additionally p.o. doses are overlapped for several weeks after restarting Decanoate.? Patient gets Decanoate every 2 weeks and literature typically uses q. 3 weeks for conversion so will titrate p.o. Prolixin to about 15 mg daily.? Discussed with patient who agrees 10/02 remains superficially polite; is guarded and continues to have paranoid, persecutory delusions 10/05 remains superficially polite; is guarded and continues to have paranoid, persecutory delusions but lessening a bit in intensity 10/07 remains superficially polite; is guarded; denies all psychiatric symptoms, though intermittently internally preoccupied; pt has denied paranoid, persecutory delusions to sign writer letterer or painter despite expressing them to others. Patient complains of some visual changes and akathisia which she attributes to restarting Prolixin and says this is very common for her when she restarts it or has a dose increase. Of note, sign writer letterer or painter does not notice any akathisia, tremor or other EPS symptoms however it's possible that patient may be experiencing a subclinical amount of EPS. 10/09Patient reports akathisia and tardive dyskinesia from the Prolixin.? Patient shows sign writer letterer or painter her mouth which she is moving and says she has some mouth and t ongue movements.? She c/o restlessness in her legs and is thus walking the hallways.? To that end she asks if a.m. dose of Prolixin committee lowered to 2.5 mg to which sign writer letterer or painter agrees.? At this point it is difficult to say if patient is having actual tardive dyskinesia or if she is feigning TD to lower her p.o. Prolixin dose, which her guardian/brother has reported she may do.? When looking at her mouth patient is clearly making it move and when distracted, mouth movements observed to by normal; similar observation made regarding akathesia; however it's possible that there could also be involuntarily mouth movent as well. Guardian says she has never had TD in the past.? She does not want any additional medications to mitigate this possible side effect.? Patient requests p.o. Prolixin to be discontinued and wants to just remain on the Decanoate.? Lozenge Maker Helper agrees with this plan.? While it is customary to overlap p.o. Prolixin with Decanoate, as it can take considerable time for Decanoate to reach steady state, it is however possible for decanoate to still become effective without p.o., though it will likely takes longer. 10/11 says TD and akathesia are significantly improved since dc'ing PO prolixin (none observed). She remains affable but guarded. Pt denies all psychiatric symptoms. She does not want to discuss events that occurred around admission or discuss hx diagnosis which she typically disputes, which makes it difficult to assess progress. Continue to rely on her guardians approximation of patients progress. However, off prolixin PO, patient might need to remain longer on unit; will discuss w/ guardian. 10/19 no change in presentation; no TD or akathisia observed; patient reports some mild intermittent tongue fasciculations but says it is much better.? Remains amenable to treatment plan.? Given patient's read a since will continue to reach out to guardian to help assess patient's stability 10/20Patient reports frustrating TD and restlessness.? Yesterday patient said it had been minimal for several days however she reports the last night she had much trouble sleeping due to feeling her legs are restless and today she demonstrates that she has a hard time sitting still.? Lozenge Maker Helper administered AIMS test: 10 Patient says that she is had the same symptoms for the past 5 years on Prolixin which have been about this level of intensity (patient has given some conflicti ng reports regarding his history and the week prior patient said that her history only included TD/akathisia at the initiation or restarting of Prolixin but that it eventually resolved on its own).? Lozenge Maker Helper reviewed medication options and listed the medications she has tried or considered reporting they are either ineffective, cause weight gain or also caused TD and does not want to switch meds.? She does not want any medication to ameliorate the symptoms including Ingrezza or propranolol, saying she rather tolerate these symptoms than have to take another medication.? Lozenge Maker Helper said he would discuss this with her brother/guardian.? However patient agrees to remain on this medication going forward.? Of note, sign writer letterer or painter observed tobias TD symptoms during aims test even when distracted by other tasks. TD does wax and wane. 10/21 no insight; wants off meds due to med side-effect of TD and restlessness. other providers whov'e had her in past remember some mild TD; sign writer letterer or painter and staff speculate some of her symptoms may be exaggerated for effect, but as mentioned she has been observed with symptoms even when perceived to be alone. 10/24 patient reports she is miserable with medication side effects of slowed speech slow, slurred words, feeling drowsy.? Today she did not complain of TD or akathisia but the opposite.? Of note, patient did have slowed speech when speaking with sign writer letterer or painter and slow movements of her body, however moments earlier when she was talking with social service worker in the hallway she was using normal speech and there was no psychomotor retardation.? Again sign writer letterer or painter agrees that there is some amount of TD/akathisia or experience of restlessness and her body however these and other symptoms seem to be exaggerated in order to make a case for getting off Prolixin as the symptoms seem to vacillate between moderate/severe to absent depending on with whom she is speaking.? Patient continues to refuse any other medications to ameliorate symptoms; she also refuses to consider any other antipsychotics that may have less side effects. Patient does not have any insight into her history of behaviors or delusions and currently, cannot accurately reflect on whether she ultimately enjoyed her life off medications. Lozenge Maker Helper has discussed this case with 2 other psychiatrists who have known patient over the years and who report that off medications she is floridly psychotic and on medication she has been able to her life at some level. Given this collateral information as well as sign writer letterer or painter's own observations when patient was 1st admitted, it remains sign writer letterer or painter's opinion that off medications and without significant help in the community, including a guardian, she will end up homeless and terrified. -will organized family meeting with social service worker and Kong, her brother/guardian -patient is due for her 3rd installment of Prolixin Decanoate; initially it was hoped she could perhaps discharge soon after she received this 3rd dose.? However,? given her poor insight, her adamant, persistent request to have medications discontinued, and her guardians report that once she becomes stable, she feels and expresses the need to be on medications, it is sign writer letterer or painter's opinion that if patient were to be discharged at this time she would very quickly decompensate and be unable to function in the community and end up homeless, hungry, scared and overwhelmed by her delusions.? Guardian fully agrees.? For patient's safety, she needs to remain on the unit even after getting her 3rd dose of Prolixin Decanoate until she returns to her minimal baseline where she accepts the need for the medication.? Regarding? medication side effects, as mentioned above patient likely has some amount of TD and perhaps restlessness however patient seems to exaggerate her symptoms depending on her audience. 2/3 patient says some minor reduction in TD/restlessness since lowering Prolixin dose. -To another staff patient said I have some kind of delusional disorder which is the 1st time sign writer letterer or painter has heard of this patient referring to actually having? a psychiatric disorder.? 10/28 Patient disclosed To sign writer letterer or painter that she think she has a delusional disorder and said that it is confusing to her since something is a delusion and some things are real; decided not to contest Marquis regarding 10/29: Pt is requesting prolixin level, A1c, lipids, and B12 labs. Reviewed medications to help with akathesia, will consider low dose ativan. 10/31 discussed labs with borderline cholesterol levels; patient does not want any medication but will work on diet and exercise to lower cholesterol; also discussed wrist tenderness which was diagnosed as Left de Quervain tenosynovitis. Orthopedist Dr. Maki Foss will follow up/tx with patient (see below).? Patient asking for hold off on submitting documents for Marquis order until Prolixin level returns; sign writer letterer or painter will discuss with red cross worker and guardian as well as documentation is timely and lab results may take several days or longer to return 11/01 sign writer letterer or painter reviewed literature and discussed with clinical pharmacist; there is room for Prolixin levels to guide treatment however dosing typically remains a clinical decision, with a goal to use the lowest effective dose Overall patient has improved since admission.? She has the insight to understand she does struggle with delusions and can have a hard time distinguishing between what is real and what is paranoid delusion; she also decided not to contest her Marquis order this year, though she did want to lower her by monthly dose.? Lozenge Maker Helper will continue to discuss with guardian however patient seems to be approaching baseline given this improved insight. 11/04 patient tired today. She said hand feels much better after getting inj ection from Ortho. Lozenge Maker Helper talked with her about her medication regimen and asked which she thinks about it. She says that she plans on continuing to take it. Lozenge Maker Helper asked why and she said because it was such a catastrophe this past time. In sign writer letterer or painter's opinion this acknowledgement is what team and guardian have been waiting to hear and hopefully indicates that patient has insight into her need for medication has reached baseline. Will discuss with guardian. Likely patient can be discharged soon after her next Prolixin Decanoate injection. 11/05/21: Weekend coverage: Continue current regime. 11/06/21: Weekend coverage: Continue current regime. PLAN: pt signed CV Q 15 minute checks Patient is on a?community Marquis?extended and in effect until Nov 11, 2021; resubmitted around 11/01 with some changes Patient has a?guardian, her brother Kong Guillaume It is writers strong opinion that patient needs to remain on a Marquis order in order for her function in the community; it's also writers strong opinion that she continues to need a guardian as she has no insight into her condition (which is impaired even at baseline) and needs ongoing help in multiple areas in order to function in the community. 1.Schizophrenia, paranoid type (pt carries this dx) -LOWERED Prolixin Dec 17mg IM due on 10/26/21 (last dose of Prolixin Decanoate 25 mg IM received on 10/12/21); lowered to see if it can mitigate some of patient's reported TD/restlessness/akathisia -Propranolol 10mg qhs for EPS, help with sleep -patient on community Marquis and cannot refuse Prolixin -Patient? refuses any meds to help migate symptoms and won't consider alternatives to Prolixin (such as Clozapine which is very low risk for TD, but risk to causes wt gain). -DC'd PO Prolixin due to c/o TD and akathesia (dc'd on 10/10); typically, overalap Prolixin PO with Decanoate? (Decanoate 25 mg Q 2/3 weeks is roughly equivalent to Prolixin p.o. 15-20 mg daily Prolixin Dec is listed on her Marquis (CANNOT REFUSE), reviewed by sign writer letterer or painter and specified by her guardian (literature reports decanoate q. 3 weeks or longer has been as effective as q.2 weeks which is something patient can discuss with outpatient provider but is something that may reduce side-effects and thus increase adherence) -DC'd 1:1 pt not intrusive or interfering with others patients treatment) 2.?Left de Quervain tenosynovitis (Left hand anatomical snuff box tenderness) Patient reports she has point tenderness on her left hand at the anatomical snuffbox which was present before admission; says has worsened; denies any hx of fall or other hand trauma.? On examination patient point tenderness in left anatomical snuffbox; no tenderness elsewhere -left hand/wrist xray unremarkable, no fracture; -pain decreased with ibuprofen -Ortho consult got another set of images and dx Left de Quervain tenosynovitis who writes: ?assessment and plan: ? 1. Left de Quervain tenosynovitis ?I educated the patient about this condition ?we discussed the importance of activity modification, and avoiding activities that aggravate this condition. ? We discussed the risks and benefits of a steroid injection and she wished to proceed with a steroid injection. Injection #1: The risks and benefits of a steroid injection including but not limited to risk of damage to blood vessels, nerves, tendons, infection, skin bleaching, failure to improve symptoms, increased pain, and possible need for further injections or other intervention were discussed with the patient and the patient wishes to proceed with the steroid injection. Once consent was obtained, I sterilely prepped the area over the ? Left 1st dorsal compartment..? I then injected the ? First dorsal compartment tendon sheath with a combination of 1 mL of dexamethasone (4mg/ml), and? 0.5% plain Marcaine.? The patient tolerated the procedure well with no complications. She had some good early relief of symptoms following the injection. ?We are unable to give her our usual Comfort Cool neoprene thumb spica splint because she is here on the behavioral health floor and it? can be stretched out to more? than 12 in in length. If the patient continues to have? painful symptoms 8 weeks following this injection, they may call to schedule appointment to be seen? for possible 2nd injection, or to talk about possible surgery. I spent 20 minutes with the patient and/or on the patient floor today, greater than?50% of which was spent counseling/coordinating care. Patient educated on: other Informed Consent: understands and further education needed Reason for contiued inpatient stay Substantial Risk for: harm to self, inability to function and rapid decompensation
[2021-11-06 18:00] VITALS: BP 160/84; PULSE 55; RESP 16; TEMP 36.2; O2SAT 98
[2021-11-06] MEDS: Propranolol HCL 10 MG TABLET PO (19:48)
[2021-11-06] MEDS: Melatonin 3 MG TABLET 6 MG PO (19:48)
[2021-11-07] MEDS: Melatonin 3 MG TABLET PO (02:36)
[2021-11-07] MEDS: polyethylene glycoL 3350 17 GM POWD.PACK PO (08:34)
--- NOTE | 2021-11-07 10:17 | P.PNPSI_ITS ---
Subjective Subjective Date of Service: 11/07/21 Reason For Visit: SECTION 12, THOUGHTS TO HARM OTHERS Interim History: Patient reports continued feelings of restlessness but says that it is intermittent. Last night she did not sleep well though other times she has slept through the night. She says she stopped taking the Ativan at bedtime since it was not helping that much; she continues to take the propranolol at bedtime but says it also does not help much. Patient continues to refuse any medication changes/additions to help alleviate EPS side effects. Her reasoning is that if she takes these types of medications and her side effects reduce, then her outpatient providers will no longer have any motivation to see if she can tolerate being at a lower Prolixin Decanoate dose. Patient is adamant about remaining on this plan. [employer] reviewed Prolixin level which is 0.8 for and for the most part correlates with expected level given her dosing. [employer] discussed the lab value with senior research executive at lab site. Patient is frustrated because she says that she still feels mentally slow, has difficulty sleeping and feels need to pace, however she agrees that she is overall stable and able to discharge; she agrees with plan that as she continues to demonstrates stability as an outpt, adhering to medication, that her outpatient provider can lower her Decanoate dose further to see if it can reduce side-effects while maintaining her stability. [employer] agrees to call Dr. Oliva and discuss this. [employer] also discussed these topics with her guardian, brother who agrees that patient has returned to baseline and that she is infact more psychiatrically stable than usually on discharge, saying that this is the first time she's ever acknowledged actually having a delusional disorder and that she is taking more responsibility for the behaviors that resulted in her admission then she has during previous decompensations. He agrees with discharge this week. Mental Status Exam Mental Status Exam Narrative: Pt is alert and oriented; behavior calm, cooperative; less guarded, more willing to talk about herself; dressed in casual nightgown, appropriate, adequately groomed and with adequate hygiene; mood is described as ok and affect congruent and overall warmer, smiling at times;? eye contact is appropriate; Speech is normal rate, volume; no psychomotor retardation present; no TD observed; intermittent restless movements;? thought process is organized and goal directed; Thought content on treatment plan; denies any current delusional thinking; denies SI/HI or AVH;? Patients insight and judgment still impaired but significantly improved and adequate. Diagnostics Vital Signs (24Hr): Vital Signs - 24 hr 11/06/21 18:00 Temperature 97.1 F Pulse Rate 55 Respiratory Rate 16 Blood Pressure 160/84 H Pulse Oximetry 98 BMI result Body Mass Index 18.6 Labs Results: 09/22/21 17:48 09/22/21 17:48 Imaging Radiology Impressions: ITS Impressions Hand X-Ray 10/27/21 14:31 IMPRESSION: Unremarkable appearance of the left hand. No focal abnormality in the region of concern. Wrist X-Ray 10/31/21 10:50 IMPRESSION: No abnormal findings Medications Medications Current Medications Acetaminophen (Acetaminophen 325 Mg Tablet) 650 mg PO Q6H PRN PRN Reason: Headache/Pain Mild Scale (1-3) Last Admin: 11/03/21 14:14 Dose: 650 mg Documented by: Al Hydroxide/Mg Hydroxide (Magnesium Hydrox/Alum Hydrox 30 Ml Oral.Susp) 30 ml PO Q6H PRN PRN Reason: Heartburn/Nausea Fluphenazine Decanoate (Fluphenazine Decanoate 25 Mg/Ml 5 Ml Vial) 17 mg IM Q14D@0900 [facility] Last Admin: 10/26/21 09:02 Dose: 17 mg Documented by: Ibuprofen (Ibuprofen 600 Mg Tablet) 600 mg PO Q6H PRN PRN Reason: Pain, Mild (Pain Scale 1-3) Last Admin: 10/30/21 06:42 Dose: 600 mg Documented by: Lorazepam (Lorazepam 0.5 Mg Tablet) 0.25 mg PO TID PRN PRN Reason: akathesia Last Admin: 11/05/21 12:29 Dose: 0.25 mg Documented by: Magnesium Hydroxide (Milk Of Magnesia 30 Ml Oral.Susp) 30 ml PO DAILY PRN PRN Reason: Constipation Last Admin: 10/15/21 12:58 Dose: 30 ml Documented by: Melatonin (Melatonin 3 Mg Tablet) 3 mg PO BEDTIME PRN PRN Reason: CONTINUED insomnia Last Admin: 11/07/21 02:36 Dose: 3 mg Documented by: Melatonin (Melatonin 3 Mg Tablet) 6 mg PO BEDTIME [facility] Last Admin: 11/06/21 19:48 Dose: 6 mg Documented by: Pharmacy Consult (Consult Rx Perform Med Rec) 1 each MISCELLANE ONCE PRN PRN Reason: Consult order Polyethylene Glycol (Polyethylene Glycol 3350 17 Gm Powd.Pack) 17 gm PO BID PRN PRN Reason: Constipation Last Admin: 11/07/21 08:34 Dose: 17 gm Documented by: Propranolol HCl (Propranolol Hcl 10 Mg Tablet) 10 mg PO BEDTIME SARABJIT; Protocol Last Admin: 11/06/21 19:48 Dose: 10 mg Documented by: Saliva Substitute (Dry Mouth Grapevine 60 Ml Grapevine) 1 spray MUCOUS MEM Q2H PRN PRN Reason: Dry Mouth Last Admin: 10/21/21 19:31 Dose: 1 spray Documented by: Allergies Allergies Allergy/AdvReac Type Severity Reaction Status Date / Time cashew nut Allergy Severe ANAPHYLAXIS Verified 10/04/21 19:44 peanut [Peanut] Allergy Severe ANAPHALAXIS Verified 10/04/21 19:44 Assessment & Plan Assessment & Plan (1) De Quervain's tenosynovitis: Status: Acute Code(s): M65.4 - Radial styloid tenosynovitis [de Quervain] Plan IMPRESSION: Patient is a 61-year-old female with history of Delusional disorder (r/o schizophrenia), on a [place] Marquis and with her brother as guardian, who presents via EMS following a wellness check by [facility] staff and police who found patient's apartment in a disheveled state and patient with paranoid delusions that her food was poisoned, there were bombs in the toilet and that [facility] staff was a part of the [place] secret police who were planning her demise, in the face of going off her? Prolixin Decanoate this past December.? On admission she denied any SI, HI, AVH or any delusional thinking; she also denied that any of the reported events or findings from [facility]'s wellness check were true and denied that she has a mental illness.? Patient refused to sign in and was on a 12 B.? Patient was willing to take Prolixin p.o. She lacks all insight. HOSPITAL COURSE: Patient continues to lack all insight and has become verbally aggressive physically posturing with menacing affect, intruding into staff's personal space, verbally harassing staff and making it difficult for staff to carry out work on the unit.? Patient's behaviors have become unsafe; she refuses to increase p.o. Prolixin and for staff and milieu safety will order Prolixin Decanoate 25 mg IM which is on her Marquis and which her guardian says patient needs and agrees she should get. -signed CV after talking with guardian; also agreed with Prolixin Decanoate -patient superficially polite but easily triggered and intense anger; remains with paranoid, persecutory delusions and some grandiosity 09/30 patient remains superficially polite; guarded.? She has not been challenging staff.? Patient reports she is tired but denies any symptoms; agrees to increasing Prolixin p.o. (which is on Marquis and cannot be refused) -Prolixin 25 mg decanoate is roughly equivalent to getting Prolixin 20 mg p.o. daily; additionally p.o. doses are overlapped for several weeks after restarting Decanoate.? Patient gets Decanoate every 2 weeks and literature typically uses q. 3 weeks for conversion so will titrate p.o. Prolixin to about 15 mg daily.? Discussed with patient who agrees 10/02 remains superficially polite; is guarded and continues to have paranoid, persecutory delusions 10/05 remains superficially polite; is guarded and continues to have paranoid, persecutory delusions but lessening a bit in intensity 10/07 remains superficially polite; is guarded; denies all psychiatric symptoms, though intermittently internally preoccupied; pt has denied paranoid, persecutory delusions to consumer loan underwriter despite expressing them to others. Patient complains of some visual changes and akathisia which she attributes to restarting Prolixin and says this is very common for her when she restarts it or has a dose increase. Of note, consumer loan underwriter does not notice any akathisia, tremor or other EPS symptoms however it's possible that patient may be experiencing a subclinical amount of EPS. 10/09Patient reports akathisia and tardive dyskinesia from the Prolixin.? Patient shows consumer loan underwriter her mouth which she is moving and says she has some mouth and tong ue movements.? She c/o restlessness in her legs and is thus walking the hallways.? To that end she asks if a.m. dose of Prolixin committee lowered to 2.5 mg to which consumer loan underwriter agrees.? At this point it is difficult to say if patient is having actual tardive dyskinesia or if she is feigning TD to lower her p.o. Prolixin dose, which her guardian/brother has reported she may do.? When looking at her mouth patient is clearly making it move and when distracted, mouth movements observed to by normal; similar observation made regarding akathesia; however it's possible that there could also be involuntarily mouth movent as well. Guardian says she has never had TD in the past.? She does not want any add itional medications to mitigate this possible side effect.? Patient requests p.o. Prolixin to be discontinued and wants to just remain on the Decanoate.? [employer] agrees with this plan.? While it is customary to overlap p.o. Prolixin with Decanoate, as it can take considerable time for Decanoate to reach steady state, it is however possible for decanoate to still become effective without p.o., though it will likely takes longer. 10/11 says TD and akathesia are significantly improved since dc'ing PO prolixin (none observed). She remains affable but guarded. Pt denies all psychiatric symptoms. She does not want to discuss events that occurred around admission or discuss hx diagnosis which she typically disputes, which makes it difficult to assess progress. Continue to rely on her guardians approximation of patients progress. However, off prolixin PO, patient might need to remain longer on unit; will discuss w/ guardian. 10/19 no change in presentation; no TD or akathisia observed; patient reports some mild intermittent tongue fasciculations but says it is much better.? Remains amenable to treatment plan.? Given patient's read a since will continue to reach out to guardian to help assess patient's stability 10/20Patient reports frustrating TD and restlessness.? Yesterday patient said it had been minimal for several days however she reports the last night she had much trouble sleeping due to feeling her legs are restless and today she demonstrates that she has a hard time sitting still.? [employer] administered AIMS test: 10 Patient says that she is had the same symptoms for the past 5 years on Prolixin which have been about this level of intensity (patient has given some conflicting reports regarding his history and the week prior patient said that her history only included TD/akathisia at the initiation or restarting of Prolixin but that it eventually resolved on its own).? [employer] reviewed medication options and listed the medications she has tried or considered reporting they are either ineffective, cause weight gain or also caused TD and does not want to switch meds.? She does not want any medication to ameliorate the symptoms including Ingrezza or propranolol, saying she rather tolerate these symptoms than have to take another medication.? [employer] said he would discuss this with her brother/guardian.? However patient agrees to remain on this medication going forward.? Of note, consumer loan underwriter observed tobias TD symptoms during aims test even when distracted by other tasks. TD does wax and wane. 10/21 no insight; wants off meds due to med side-effect of TD and restlessness. other providers whov'e had her in past remember some mild TD; consumer loan underwriter and staff speculate some of her symptoms may be exaggerated for effect, but as mentioned she has been observed with symptoms even when perceived to be alone. 10/24 patient reports she is miserable with medication side effects of slowed speech slow, slurred words, feeling drowsy.? Today she did not complain of TD or akathisia but the opposite.? Of note, patient did have slowed speech when speaking with consumer loan underwriter and slow movements of her body, however moments earlier when she was talking with social and political studies professor in the hallway she was using normal speech and there was no psychomotor retardation.? Again consumer loan underwriter agrees that there is some amount of TD/akathisia or experience of restlessness and her body however these and other symptoms seem to be exaggerated in order to make a case for getting off Prolixin as the symptoms seem to vacillate between moderate/severe to absent depending on with whom she is speaking.? Patient continues to refuse any other medications to ameliorate symptoms; she also refuses to consider any other antipsychotics that may have less side effects. Patient does not have any insight into her history of behaviors or delusions and currently, cannot accurately reflect on whether she ultimately enjoyed her life off medications. [employer] has discussed this case with 2 other psychiatrists who have known patient over the years and who report that off medications she is floridly psychotic and on medication she has been able to her life at some level. Given this collateral information as well as consumer loan underwriter's own observations when patient was 1st admitted, it remains consumer loan underwriter's opinion that off medications and without significant help in the community, including a guardian, she will end up homeless and terrified. -will organized family meeting with social and political studies professor and Kong, her brother/guardian -patient is due for her 3rd installment of Prolixin Decanoate; initially it was hoped she could perhaps discharge soon after she received this 3rd dose.? However,? given her poor insight, her adamant, persistent request to have medications discontinued, and her guardians report that once she becomes stable, she feels and expresses the need to be on medications, it is consumer loan underwriter's opinion that if patient were to be discharged at this time she would very quickly decompensate and be unable to function in the community and end up homeless, hungry, scared and overwhelmed by her delusions.? Guardian fully agrees.? For ita palumbo's safety, she needs to remain on the unit even after getting her 3rd dose of Prolixin Decanoate until she returns to her minimal baseline where she accepts the need for the medication.? Regarding? medication side effects, as mentioned above patient likely has some amount of TD and perhaps restlessness however patient seems to exaggerate her symptoms depending on her audience. 2/3 patient says some minor reduction in TD/restlessness since lowering Prolixin dose. -To another staff patient said I have some kind of delusional disorder which is the 1st time consumer loan underwriter has heard of this patient referring to actually having? a psychiatric disorder.? 2 Patient disclosed To consumer loan underwriter that she think she has a delusional disorder and said that it is confusing to her since something is a delusion and some things are real; decided not to contest Benitez regarding 10/29: Pt is requesting prolixin level, A1c, lipids, and B12 labs. Reviewed medications to help with akathesia, will consider low dose ativan. 10/31 discussed labs with borderline cholesterol levels; patient does not want any medication but will work on diet and exercise to lower cholesterol; also discussed wrist tenderness which was diagnosed as Left de Quervain tenosynovitis. Orthopedist Dr. Maki Foss will follow up/tx with patient (see below).? Patient asking for hold off on submitting documents for Marquis order until Prolixin level returns; consumer loan underwriter will discuss with production staff worker and guardian as well as documentation is timely and lab results may take several days or longer to return 11/01 consumer loan underwriter reviewed literature and discussed with clinical pharmacist; there is room for Prolixin levels to guide treatment however dosing typically remains a clinical decision, with a goal to use the lowest effective dose Overall patient has improved since admission.? She has the insight to understand she does struggle with delusions and can have a hard time distinguishing between what is real and what is paranoid delusion; she also decided not to contest her Marquis order this year, though she did want to lower her by monthly dose.? Chip baires will continue to discuss with guardian however patient seems to be approaching baseline given this improved insight. 11/04 patient tired today. She said hand feels much better after getting inject ion from Ortho. [employer] talked with her about her medication regimen and asked which she thinks about it. She says that she plans on continuing to take it. [employer] asked why and she said because it was such a catastrophe this past time. In consumer loan underwriter's opinion this acknowledgement is what team and guardian have been waiting to hear and hopefully indicates that patient has insight into her need for medication has reached baseline. Will discuss with guardian. Likely patient can be discharged soon after her next Prolixin Decanoate injection. 11/05/21: Weekend coverage: Continue current regime. 11/06/21: Weekend coverage: Continue current regime. 11/07 patient appears to have returned to baseline per her guardian and staff on the unit who have known her throughout the years. Guardian feels that she is actually doing better than she typically does when preparing for discharge, feeling that her insight is higher than usual, citing that she has herself acknowledged having a delusional disorder, is taking responsibility for actions that resulted in this admission and agrees to continuing to take the medication feeling a need for it. It is consumer loan underwriter's strong opinion that it is in patient's best interest to remain for her next Prolixin Decanoate injection which will better support her stability when discharged into the community. Patient reports hand feels much better; consumer loan underwriter will reach out to outpatient psychiatrist Dr. Melvin there as and discussed case, including consumer loan underwriter's opinion that patient may be able to tolerate lower dose of Prolixin dec. PLAN: pt signed CV Q 15 minute checks Patient is on a?community Marquis?extended and in effect until Nov 11, 2021; resubmitted around 11/01 with some changes Patient has a?guardian, her brother Kong Guillaume It is writers strong opinion that patient needs to remain on a Marquis order in order for her function in the community; it's also writers strong opinion that she continues to need a guardian as she has no insight into her condition (which is impaired even at baseline) and needs ongoing help in multiple areas in order to function in the community. 1.Schizophrenia, paranoid type (pt carries this dx) -LOWERED Prolixin Dec 17mg IM due on 10/26/21 (last dose of Prolixin Decanoate 25 mg IM received on 10/12/21); lowered to see if it can mitigate some of patient's reported TD/restlessness/akathisia -Propranolol 10mg qhs for EPS, help with sleep -patient on community Marquis and cannot refuse Prolixin -Patient? refuses any meds to help migate symptoms and won't consider alternatives to Prolixin (such as Clozapine which is very low risk for TD, but risk to causes wt gain). -DC'd PO Prolixin due to c/o TD and akathesia (dc'd on 10/10); typically, overalap Prolixin PO with Decanoate? (Decanoate 25 mg Q 2/3 weeks is roughly equivalent to Prolixin p.o. 15-20 mg daily Prolixin Dec is listed on her Marquis (CANNOT REFUSE), reviewed by consumer loan underwriter and specified by her guardian (literature reports decanoate q. 3 weeks or longer has been as effective as q.2 weeks which is something patient can discuss with outpatient provider but is something that may reduce side-effects and thus increase adherence) -DC'd 1:1 pt not intrusive or interfering with others patients treatment) 2.?Left de Quervain tenosynovitis (Left hand anatomical snuff box tenderness) Patient reports she has point tenderness on her left hand at the anatomical snuffbox which was present before admission; says has worsened; denies any hx of fall or other hand trauma.? On examination patient point tenderness in left anatomical snuffbox; no tenderne ss elsewhere -left hand/wrist xray unremarkable, no fracture; -pain decreased with ibuprofen -Ortho consult got another set of images and dx Left de Quervain tenosynovitis who writes: ?assessment and plan: ? 1. Left de Quervain tenosynovitis ?I educated the patient about this condition ?we discussed the importance of activity modification, and avoiding activities that aggravate this condition. ? We discussed the risks and benefits of a steroid injection and she wished to proceed with a steroid injection. Injection #1: The risks and benefits of a steroid injection including but not limited to risk of damage to blood vessels, nerves, tendons, infection, skin bleaching, failure to improve symptoms, increased pain, and possible need for further injections or other intervention were discussed with the patient and the patient wishes to proceed with the steroid injection. Once consent was obtained, I sterilely prepped the area over the ? Left 1st dorsal compartment..? I then injected the ? First dorsal compartment tendon sheath with a combination of 1 mL of dexamethasone (4mg/ml), and? 0.5% plain Marcaine.? The patient tolerated the procedure well with no complications. She had some good early relief of symptoms following the injection. ?We are unable to give her our usual Comfort Cool neoprene thumb spica splint because she is here on the behavioral health floor and it? can be stretched out to more? than 12 in in length. If the patient continues to have? painful symptoms 8 weeks following this injection, they may call to schedule appointment to be seen? for possible 2nd injection, or to talk about possible surgery. I spent minutes with the patient and/or on the patient floor today, greater than?50% of which was spent counseling/coordinating care. Reason for contiued inpatient stay Substantial Risk for: stable for discharge
[2021-11-07] MEDS: LORazepam 0.5 MG TABLET 0.25 MG PO (13:11)
[2021-11-07 17:59] VITALS: BP 182/95; PULSE 63; TEMP 37.2
[2021-11-07 19:50] VITALS: BP 175/95; PULSE 70
[2021-11-07] MEDS: Melatonin 3 MG TABLET 6 MG PO (20:03)
[2021-11-07] MEDS: Propranolol HCL 10 MG TABLET PO (20:03)
[2021-11-08] MEDS: Melatonin 3 MG TABLET PO ×2 (02:34→23:26)
[2021-11-08 06:00] VITALS: BP 149/80; PULSE 71; RESP 18; TEMP 36.7; O2SAT 97
[2021-11-08] MEDS: polyethylene glycoL 3350 17 GM POWD.PACK PO (08:55)
[2021-11-08 13:46] VITALS: BP 172/95; PULSE 72
[2021-11-08] MEDS: lisinopriL 5 MG TABLET PO (15:08)
[2021-11-08 16:25] VITALS: BP 173/89; PULSE 61; TEMP 36.6
[2021-11-08] MEDS: Melatonin 3 MG TABLET 6 MG PO (21:15)
--- NOTE | 2021-11-08 22:33 | P.PNPSI_ITS ---
Subjective Subjective Date of Service: 11/08/21 Reason For Visit: SECTION 12, THOUGHTS TO HARM OTHERS Interim History: pt reports she is ready for discharge after getting IM Prolixin DEC; denies psychiatric symptoms. Pt c/o hypertension and wants to get on Lisinopril; assembly instructions writer reviewed risks/side-effects and pt agrees to starting lisinopril Mental Status Exam Mental Status Exam Narrative: Pt is alert and oriented; behavior calm, cooperative; less guarded, more willing to talk about herself; dressed in casual nightgown, appropriate, adequately groomed and with adequate hygiene; mood is described as fine and affect congruent and overall warmer, smiling at times;? eye contact is appropriate; Speech is normal rate, volume; no psychomotor retardation present; no TD observed; intermittent restless movements;? thought process is organized and goal directed; Thought content on treatment plan; denies any current delusional thinking; denies SI/HI or AVH;? Patients insight and judgment still impaired but significantly improved and adequate.? Diagnostics Vital Signs (24Hr): Vital Signs - 24 hr 11/08/21 06:00 11/08/21 13:46 11/08/21 16:25 Temperature 98.0 F 97.9 F Pulse Rate 71 72 61 Respiratory Rate 18 Blood Pressure 149/80 H 172/95 H 173/89 H Pulse Oximetry 97 BMI result Body Mass Index 18.6 Labs Results: 09/22/21 17:48 09/22/21 17:48 Imaging Radiology Impressions: ITS Impressions Hand X-Ray 10/27/21 14:31 IMPRESSION: Unremarkable appearance of the left hand. No focal abnormality in the region of concern. Wrist X-Ray 10/31/21 10:50 IMPRESSION: No abnormal findings Medications Medications Current Medications Acetaminophen (Acetaminophen 325 Mg Tablet) 650 mg PO Q6H PRN PRN Reason: Headache/Pain Mild Scale (1-3) Last Admin: 11/03/21 14:14 Dose: 650 mg Documented by: Al Hydroxide/Mg Hydroxide (Magnesium Hydrox/Alum Hydrox 30 Ml Oral.Susp) 30 ml PO Q6H PRN PRN Reason: Heartburn/Nausea Fluphenazine Decanoate (Fluphenazine Decanoate 25 Mg/Ml 5 Ml Vial) 17 mg IM Q14D@0900 SARABJIT Last Admin: 10/26/21 09:02 Dose: 17 mg Documented by: Ibuprofen (Ibuprofen 600 Mg Tablet) 600 mg PO Q6H PRN PRN Reason: Pain, Mild (Pain Scale 1-3) Last Admin: 10/30/21 06:42 Dose: 600 mg Documented by: Lisinopril (Lisinopril 5 Mg Tablet) 5 mg PO DAILY SARABJIT; Protocol Lorazepam (Lorazepam 0.5 Mg Tablet) 0.25 mg PO TID PRN PRN Reason: akathesia Last Admin: 11/07/21 13:11 Dose: 0.25 mg Documented by: Magnesium Hydroxide (Milk Of Magnesia 30 Ml Oral.Susp) 30 ml PO DAILY PRN PRN Reason: Constipation Last Admin: 10/15/21 12:58 Dose: 30 ml Documented by: Melatonin (Melatonin 3 Mg Tablet) 3 mg PO BEDTIME PRN PRN Reason: CONTINUED insomnia Last Admin: 11/08/21 02:34 Dose: 3 mg Documented by: Melatonin (Melatonin 3 Mg Tablet) 6 mg PO BEDTIME SARABJIT Last Admin: 11/08/21 21:15 Dose: 6 mg Documented by: Pharmacy Consult (Consult Rx Perform Med Rec) 1 each MISCELLANE ONCE PRN PRN Reason: Consult order Polyethylene Glycol (Polyethylene Glycol 3350 17 Gm Powd.Pack) 17 gm PO BID PRN PRN Reason: Constipation Last Admin: 11/08/21 08:55 Dose: 17 gm Documented by: Propranolol HCl (Propranolol Hcl 10 Mg Tablet) 10 mg PO BEDTIME SARABJIT; Protocol Last Admin: 11/08/21 21:18 Dose: Not Given Documented by: Saliva Substitute (Dry Mouth Tyler 60 Ml Tyler) 1 spray MUCOUS MEM Q2H PRN PRN Reason: Dry Mouth Last Admin: 10/21/21 19:31 Dose: 1 spray Documented by: Allergies Allergies Allergy/AdvReac Type Severity Reaction Status Date / Time cashew nut Allergy Severe ANAPHYLAXIS Verified 10/04/21 19:44 peanut [Peanut] Allergy Severe ANAPHALAXIS Verified 10/04/21 19:44 Assessment & Plan Assessment & Plan (1) De Quervain's tenosynovitis: Status: Acute Code(s): M65.4 - Radial styloid tenosynovitis [de Quervain] Plan IMPRESSION: Patient is a 61-year-old female with history of Delusional disorder (r/o schizophrenia), on a community Marquis and with her brother as guardian, who presents via EMS following a wellness check by [facility] staff and police who found patient's apartment in a disheveled state and patient with paranoid delusions that her food was poisoned, there were bombs in the toilet and that [facility] staff wa s a part of the [place] secret police who were planning her demise, in the face of going off her? Prolixin Decanoate this past December.? On admission she denied any SI, HI, AVH or any delusional thinking; she also denied that any of the reported events or findings from [facility]'s wellness check were true and denied that she has a mental illness.? Patient refused to sign in and was on a 12 B.? Patient was willing to take Prolixin p.o. She lacks all insight. HOSPITAL COURSE: Patient continues to lack all insight and has become verbally aggressive physically posturing with menacing affect, intruding into staff's personal space, verbally harassing staff and making it difficult for staff to carry out work on the unit.? Patient's behaviors have become unsafe; she refuses to in crease p.o. Prolixin and for staff and milieu safety will order Prolixin Decanoate 25 mg IM which is on her Marquis and which her guardian says patient needs and agrees she should get. -signed CV after talking with guardian; also agreed with Prolixin Decanoate -patient superficially polite but easily triggered and intense anger; remains with paranoid, persecutory delusions and some grandiosity 09/30 patient remains superficially polite; guarded.? She has not been challenging staff.? Patient reports she is tired but denies any symptoms; agrees to increasing Prolixin p.o. (which is on Marquis and cannot be refused) -Prolixin 25 mg decanoate is roughly equivalent to getting Prolixin 20 mg p.o. daily; additionally p.o. doses are overlapped for several weeks after restarting Decanoate.? Patient gets Decanoate every 2 weeks and literature typically uses q. 3 weeks for conversion so will titrate p.o. Prolixin to about 15 mg daily.? Discussed with patient who agrees 10/02 remains superficially polite; is guarded and continues to have paranoid, persecutory delusions 10/05 remains superficially polite; is guarded and continues to have paranoid, persecutory delusions but lessening a bit in intensity 10/07 remains superficially polite; is guarded; denies all psychiatric symptoms, though intermittently internally preoccupied; pt has denied paranoid, persecutory delusions to assembly instructions writer despite expressing them to others. Patient complains of some visual changes and akathisia which she attributes to restarting Prolixin and says this is very common for her when she restarts it or has a dose increase. Of note, assembly instructions writer does not notice any akathisia, tremor or other EPS symptoms however it's possible that patient may be experiencing a subclinical amount of EPS. 10/09Patient reports akathisia and tardive dyskinesia from the Prolixin.? Patient shows assembly instructions writer her mouth which she is moving and says she has some mouth and tongue movements.? She c/o restlessness in her legs and is thus walking the hallways.? To that end she asks if a.m. dose of Prolixin committee lowered to 2.5 mg to which assembly instructions writer agrees.? At this point it is difficult to say if patient is having actual tardive dyskinesia or if she is feigning TD to lower her p.o. Prolixin dose, which her guardian/brother has reported she may do.? When looking at her mouth patient is clearly making it move and when distracted, mouth movements observed to by normal; similar observation made regarding akathesia; however it's possible that there could also be involuntarily mouth movent as well. Guardian says she has never had TD in the past.? She does not want any additional medications to mitigate this possible side effect.? Patient requests p.o. Prolixin to be discontinued and wants to just remain on the Decanoate.? Signs Cleaner agrees with this plan.? While it is customary to overlap p.o. Prolixin with Decanoate, as it can take considerable time for Decanoate to reach steady state, it is however possible for decanoate to still become effective without p.o., though it will likely takes longer. 10/11 says TD and akathesia are significantly improved since dc'ing PO prolixin (none observed). She remains affable but guarded. Pt denies all psychiatric symptoms. She does not want to discuss events that occurred around admission or discuss hx diagnosis which she typically disputes, which makes it difficult to assess progress. Continue to rely on her guardians approximation of patients progress. However, off prolixin PO, patient might need to remain longer on unit; will discuss w/ guardian. 10/19 no change in presentation; no TD or akathisia observed; patient reports some mild intermittent tongue fasciculations but says it is much better.? R emains amenable to treatment plan.? Given patient's read a since will continue to reach out to guardian to help assess patient's stability 10/20Patient reports frustrating TD and restlessness.? Yesterday patient said it had been minimal for several days however she reports the last night she had much trouble sleeping due to feeling her legs are restless and today she demonstrates that she has a hard time sitting still.? Signs Cleaner administered AIMS test: 10 Patient says that she is had the same symptoms for the past 5 years on Prolixin which have been about this level of intensity (patient has given some conflicting reports regarding his history and the week prior patient said that her history only included TD/akathisia at the initiation or restarting of Prolixin but that it eventually resolved on its own).? Signs Cleaner reviewed medication options and listed the medications she has tried or considered reporting they are either ineffective, cause weight gain or also caused TD and does not want to switch meds.? She does not want any medication to ameliorate the symptoms including Ingrezza or propranolol, saying she rather tolerate these symptoms than have to take another medication.? Signs Cleaner said he would discuss this with her brother/guardian.? However patient agrees to remain on this medica tion going forward.? Of note, assembly instructions writer observed tobias TD symptoms during aims test even when distracted by other tasks. TD does wax and wane. 10/21 no insight; wants off meds due to med side-effect of TD and restlessness. other providers whov'e had her in past remember some mild TD; assembly instructions writer and staff speculate some of her symptoms may be exaggerated for effect, but as mentioned she has been observed with symptoms even when perceived to be alone. 10/24 patient reports she is miserable with medication side effects of slowed speech slow, slurred words, feeling drowsy.? Today she did not complain of TD or akathisia but the opposite.? Of note, patient did have slowed speech when speaking with assembly instructions writer and slow movements of her body, however moments earlier when she was talking with social media marketing analyst in the hallway she was using normal speech and there was no psychomotor retardation.? Again assembly instructions writer agrees that there is some amount of TD/akathisia or experience of restlessness and her body however these and other symptoms seem to be exaggerated in order to make a case for getting off Prolixin as the symptoms seem to vacillate between moderate/severe to absent depending on with whom she is speaking.? Patient continues to refuse any other medications to ameliorate symptoms; she also refuses to consider any other antipsychotics that may have less side effects. Patient does not have any insight into her history of behaviors or delusions and currently, cannot accurately reflect on whether she ultimately enjoyed her life off medications. Signs Cleaner has discussed this case with 2 other psychiatrists who have known patient over the years and who report that off medications she is floridly psychotic and on medication she has been able to her life at some level. Given this collateral information as well as assembly instructions writer's own observations when patient was 1st admitted, it remains assembly instructions writer's opinion that off medications and without significant help in the community, including a guardian, she will end up homeless and terrified. -will organized family meeting with social media marketing analyst and Kong, her brother/guardian -patient is due for her 3rd installment of Prolixin Decanoate; initially it was hoped she could perhaps discharge soon after she received this 3rd dose.? However,? given her poor insight, her adamant, persistent request to have medications discontinued, and her guardians report that once she becomes stable, she feels and expresses the need to be on medications, it is assembly instructions writer's opinion that if patient were to be discharged at this time she would very quickly decompensate and be unable to function in the community and end up homeless, hungry, scared and overwhelmed by her delusions.? Guardian fully agrees.? For patient's safety, she needs to remain on the unit even after getting her 3rd dose of Prolixin Decanoate until she returns to her minimal baseline where she accepts the need for the medication.? Regarding? medication side effects, as mentioned above patient likely has some amount of TD and perhaps restlessness however patient seems to exaggerate her symptoms depending on her audience. 10/27 patient says some minor reduction in TD/restlessness since lowering Prolixin dose. -To another staff patient said I have some kind of delusional disorder which is the 1st time assembly instructions writer has heard of this patient referring to actually having? a psychiatric disorder.? 10/28 Patient disclosed To assembly instructions writer that she think she has a delusional disorder and said that it is confusing to her since something is a delusion and some things are real; decided not to contest Marquis regarding 10/29: Pt is requesting prolixin level, A1c, lipids, and B12 labs. Reviewed medications to help with akathesia, will consider low dose ativan. 10/31 discussed labs with borderline cholesterol levels; patient does not want any medication but will work on diet and exercise to lower cholesterol; also discussed wrist tenderness which was diagnosed as Left de Quervain tenosynovitis. Orthopedist Dr. Maki Foss will follow up/tx with patient (see below).? Patient asking for hold off on submitting documents for Marquis order until Prolixin level returns; assembly instructions writer will discuss with windows migration technician and guardian as well as documentation is timely and lab results may take several days or longer to return 11/01 assembly instructions writer reviewed literature and discussed with clinical pharmacist; there is room for Prolixin levels to guide treatment however dosing typically remains a clinical decision, with a goal to use the lowest effective dose Overall patient has improved since admission.? She has the insight to understand she does struggle with delusions and can have a hard time distinguishing between what is real and what is paranoid delusion; she also decided not to contest her Marquis order this year, though she did want to lower her by monthly dose.? Signs Cleaner will continue to discuss with guardian however patient seems to be approaching baseline given this improved insight. 11/04 patient tired today. She said hand feels much better after getting injection from Ortho. Signs Cleaner talked with her about her medication regimen and asked which she thinks about it. She says that she plans on continuing to take it. Signs Cleaner asked why and she said because it was such a catastrophe this past time. In assembly instructions writer's opinion this acknowledgement is what team and guardian have been waiting to hear and hopefully indicates that patient has insight into her need for medication has reached baseline. Will discuss with guardian. Likely patient can be discharged soon after her next Prolixin Decanoate injection. 11/05/21: Weekend coverage: Continue current regime. 11/06/21: Weekend coverage: Continue current regime. 11/07 patient appears to have returned to baseline per her guardian and staff on the unit who have known her throughout the years. Guardian feels that she is actually doing better than she typically does when preparing for discharge, feeling that her insight is higher than usual, citing that she has herself acknowledged having a delusional disorder, is taking responsibility for actions that resulted in this admission and agrees to continuing to take the medication feeling a need for it. It is assembly instructions writer's strong opinion that it is in patient's best interest to remain for her next Prolixin Decanoate injection which will better support her stability when discharged into the community. Patient reports hand feels much better; assembly instructions writer will reach out to outpatient psychiatrist Dr. Melvin there as and discussed case, including assembly instructions writer's opinion that patient may be able to tolerate lower dose of Prolixin dec. -starting Lisinopril 5mg daily for high blood pressure PLAN: pt signed CV Q 15 minute checks Patient is on a?community Marquis?extended and in effect until Nov 11, 2021; resu bmitted around 11/01 with some changes Patient has a?guardian, her brother Kong Guillaume It is writers strong opinion that patient needs to remain on a Marquis order in order for her function in the community; it's also writers strong opinion that she continues to need a guardian as she has no insight into her condition (which is impaired even at baseline) and needs ongoing help in multiple areas in order to function in the community. 1.Schizophrenia, paranoid type (pt carries this dx) -LOWERED Prolixin Dec 17mg IM due on 10/26/21 (last dose of Prolixin Decanoate 25 mg IM received on 10/12/21); lowered to see if it can mitigate some of patient's reported TD/restlessness/akathisia -Propranolol 10mg qhs for EPS, help with sleep -patient on community Marquis and cannot refuse Prolixin -Patient? refuses any meds to help migate symptoms and won't consider alternatives to Prolixin (such as Clozapine which is very low risk for TD, but risk to causes wt gain). -DC'd PO Prolixin due to c/o TD and akathesia (dc'd on 10/10); typically, overalap Prolixin PO with Decanoate? (Decanoate 25 mg Q 2/3 weeks is roughly equivalent to Prolixin p.o. 15-20 mg daily Prolixin Dec is listed on her Marquis (CANNOT REFUSE), reviewed by assembly instructions writer and specified by her guardian (literature reports decanoate q. 3 weeks or longer has been as effective as q.2 weeks which is something patient can discuss with outpatient provider but is something that may reduce side-effects and thus increase adherence) -DC'd 1:1 pt not intrusive or interfering with others patients treatment) 2.?Left de Quervain tenosynovitis (Left hand anatomical snuff box tenderness) Patient reports she has point tenderness on her left hand at the anatomical snuffbox which was present before admission; says has worsened; denies any hx of fall or other hand trauma.? On examination patient point tenderness in left anatomical snuffbox; no tenderness elsewhere -left hand/wrist xray unremarkable, no fracture; -pain decreased with ibuprofen -Ortho consult got another set of images and dx Left de Quervain tenosynovitis who writes: ?assessment and plan: ? 1. Left de Quervain tenosynovitis ?I educated the patient about this condition ?we discussed the importance of activity modification, and avoiding activities that aggravate this condition. ? We discussed the risks and benefits of a steroid injection and she wished to proceed with a steroid injection. Injection #1: The risks and benefits of a steroid injection including but not limited to risk of damage to blood vessels, nerves, tendons, infection, skin bleaching, failure to improve symptoms, increased pain, and possible need for further injections or other intervention were discussed with the patient and the patient wishes to proceed with the steroid injection. Once consent was obtained, I sterilely prepped the area over the ? Left 1st dorsal compartment..? I then injected the ? First dorsal compartment tendon sheath with a combination of 1 mL of dexamethasone (4mg/ml), and? 0.5% plain Marcaine.? The patient tolerated the procedure well with no complications. She had some good early relief of symptoms following the injection. ?We are unable to give her our usual Comfort Cool neoprene thumb spica splint because she is here on the behavioral health floor and it? can be stretched out to more? than 12 in in length. If the patient continues to have? painful symptoms 8 weeks following this injection, they may call to schedule appointment to be seen? for possible 2nd injection, or to talk about possible surgery. I spent minutes with the patient and/or on the patient floor today, greater than?50% of which was spent counseling/coordinating care. Reason for contiued inpatient stay Substantial Risk for: stable for discharge
[2021-11-09] MEDS: polyethylene glycoL 3350 17 GM POWD.PACK PO (05:56)
[2021-11-09 05:59] VITALS: BP 121/63; PULSE 66; RESP 16; TEMP 36.3; O2SAT 98
[2021-11-09 07:37] LABS: Blood Urea Nitrogen 15 mg/dL (9-16); Creatinine Clr Calc Pharmacy 61.7; Estimated Glomerular Filt Rate > 60
[2021-11-09] MEDS: fluPHENAZine decanoate 25 MG/ML 5 ML VIAL 17 MG IM (08:38)
[2021-11-09 08:54] VITALS: BP 134/64; PULSE 56
[2021-11-09] MEDS: lisinopriL 5 MG TABLET PO (08:58)
--- NOTE | 2021-11-09 10:27 | P.PNPSI_ITS ---
Subjective Subjective Date of Service: 11/09/21 Reason For Visit: SECTION 12, THOUGHTS TO HARM OTHERS Interim History: Patient is very pleased that her blood pressure has returned to normal having started lisinopril. Labs reviewed and BUN/creatinine within normal limits. Patient says that now the blood pressure is lower she feels she is cognitively clear again and wonders if she was having a side effect from hypertension (though BP was mostly only modestly elevated). She also says that she is seeing a little better. Patient reports she does have some mild tardive dyskinesia and though it is not visible to typewriter assembly and parts inspector, she says it is apparent with her tongue. She also still has some trouble sleeping and finds herself wanting to pace; she remains on interested in continuing with propranolol or Ativan or any other medications to ameliorate the symptoms. Patient denies any delusional thinking, auditory hallucinations, SI or HI and feels safe to go back to her house. On her own, She again referred to her recent history of delusional thinking and asked if it was perhaps exacerbated by hypertension to which typewriter assembly and parts inspector agreed is possible. Patient expressed gratitude for the help she received on the unit and thanked typewriter assembly and parts inspector for the treatment. Mental Status Exam Mental Status Exam Narrative: Pt is alert and oriented; behavior calm, cooperative, friendly; able to talk about herself; dressed in casual nightgown, appropriate, adequately groomed and with adequate hygiene; mood is described as good and affect congruent, bright, smiling and overall warmer;? eye contact is appropriate; Speech is normal rate, volume; no psychomotor retardation present; no TD observed but pt reports mild tongue movements; intermittent restless movements;? thought process is organized and goal directed; Thought content on treatment and discharge; denies any current delusional thinking; denies SI/HI or AVH;? Patients insight and judgment are impaired but significantly improved and adequate.? Diagnostics Vital Signs (24Hr): Vital Signs - 24 hr 11/08/21 13:46 11/08/21 16:25 11/09/21 05:59 Temperature 97.9 F 97.3 F Pulse Rate 72 61 66 Respiratory Rate 16 Blood Pressure 172/95 H 173/89 H 121/63 Pulse Oximetry 98 11/09/21 08:54 Temperature Pulse Rate 56 Respiratory Rate Blood Pressure 134/64 Pulse Oximetry BMI result Body Mass Index 18.6 Labs Results: 09/22/21 17:48 11/09/21 07:06 Labs: Laboratory Results - last 48 hr 11/09/21 07:06 BUN 15 Creatinine 0.81 Estim Creat Clear Calc 61.7 Estimated GFR > 60 Imaging Radiology Impressions: ITS Impressions Hand X-Ray 10/27/21 14:31 IMPRESSION: Unremarkable appearance of the left hand. No focal abnormality in the region of concern. Wrist X-Ray 10/31/21 10:50 IMPRESSION: No abnormal findings Medications Medications Current Medications Acetaminophen (Acetaminophen 325 Mg Tablet) 650 mg PO Q6H PRN PRN Reason: Headache/Pain Mild Scale (1-3) Last Admin: 11/03/21 14:14 Dose: 650 mg Documented by: Al Hydroxide/Mg Hydroxide (Magnesium Hydrox/Alum Hydrox 30 Ml Oral.Susp) 30 ml PO Q6H PRN PRN Reason: Heartburn/Nausea Fluphenazine Decanoate (Fluphenazine Decanoate 25 Mg/Ml 5 Ml Vial) 17 mg IM Q14D@0900 [facility] Last Admin: 11/09/21 08:38 Dose: 17 mg Documented by: Ibuprofen (Ibuprofen 600 Mg Tablet) 600 mg PO Q6H PRN PRN Reason: Pain, Mild (Pain Scale 1-3) Last Admin: 10/30/21 06:42 Dose: 600 mg Documented by: Lisinopril (Lisinopril 5 Mg Tablet) 5 mg PO DAILY [facility]; Protocol Last Admin: 11/09/21 08:58 Dose: 5 mg Documented by: Magnesium Hydroxide (Milk Of Magnesia 30 Ml Oral.Susp) 30 ml PO DAILY PRN PRN Reason: Constipation Last Admin: 10/15/21 12:58 Dose: 30 ml Documented by: Melatonin (Melatonin 3 Mg Tablet) 3 mg PO BEDTIME PRN PRN Reason: CONTINUED insomnia Last Admin: 11/08/21 23:26 Dose: 3 mg Documented by: Melatonin (Melatonin 3 Mg Tablet) 6 mg PO BEDTIME [facility] Last Admin: 11/08/21 21:15 Dose: 6 mg Documented by: Pharmacy Consult (Consult Rx Perform Med Rec) 1 each MISCELLANE ONCE PRN PRN Reason: Consult order Polyethylene Glycol (Polyethylene Glycol 3350 17 Gm Powd.Pack) 17 gm PO BID PRN PRN Reason: Constipation Last Admin: 11/09/21 05:56 Dose: 17 gm Documented by: Propranolol HCl (Propranolol Hcl 10 Mg Tablet) 10 mg PO BEDTIME [facility]; Protocol Last Admin: 11/08/21 21:18 Dose: Not Given Documented by: Saliva Substitute (Dry Mouth Godfrey 60 Ml Godfrey) 1 spray MUCOUS MEM Q2H PRN PRN Reason: Dry Mouth Last Admin: 10/21/21 19:31 Dose: 1 spray Documented by: Allergies Allergies Allergy/AdvReac Type Severity Reaction Status Date / Time cashew nut Allergy Severe ANAPHYLAXIS Verified 10/04/21 19:44 peanut [Peanut] Allergy Severe ANAPHALAXIS Verified 10/04/21 19:44 Assessment & Plan Assessment & Plan (1) De Quervain's tenosynovitis: Status: Acute Code(s): M65.4 - Radial styloid tenosynovitis [de Quervain] Plan IMPRESSION: Patient is a 61-year-old female with history of Delusional disorder (r/o schizophrenia), on a [employer] Marquis and with her brother as guardian, who presents via EMS following a wellness check by [facility] staff and police who found patient's apartment in a disheveled state and patient with paranoid delusions t hat her food was poisoned, there were bombs in the toilet and that [facility] staff was a part of the [place] secret police who were planning her demise, in the face of going off her? Prolixin Decanoate this past December.? On admission she denied any SI, HI, AVH or any delusional thinking; she also denied that any of the reported events or findings from [facility]'s wellness check were true and denied that she has a mental illness.? Patient refused to sign in and was on a 12 B.? Patient was willing to take Prolixin p.o. She lacks all insight. HOSPITAL COURSE: Patient continues to lack all insight and has become verbally aggressive physically posturing with menacing affect, intruding into staff's personal space, verbally harassing staff and making it difficult for staff to carry out work on the unit.? Patient's behaviors have become unsafe; she refuses to increase p.o. Prolixin and for staff and milieu safety will order Prolixin Decanoate 25 mg IM which is on her Marquis and which her guardian says patient needs and agrees she should get. -signed CV after talking with guardian; also agreed with Prolixin Decanoate -patient superficially polite but easily triggered and intense anger; remains with paranoid, persecutory delusions and some grandiosity 09/30 patient remains superficially polite; guarded.? She has not been challenging staff.? Patient reports she is tired but denies any symptoms; agrees to increasing Prolixin p.o. (which is on Marquis and cannot be refused) -Prolixin 25 mg decanoate is roughly equivalent to getting Prolixin 20 mg p.o. daily; additionally p.o. doses are overlapped for several weeks after restarting Decanoate.? Patient gets Decanoate every 2 weeks and literature typically uses q. 3 weeks for conversion so will titrate p.o. Prolixin to about 15 mg daily.? Discussed with patient who agrees 10/02 remains superficially polite; is guarded and continues to have paranoid, persecutory delusions 10/05 remains superficially polite; is guarded and continues to have paranoid, persecutory delusions but lessening a bit in intensity 10/07 remains superficially polite; is guarded; denies all psychiatric symptoms, though intermittently internally preoccupied; pt has denied paranoid, persecutory delusions to typewriter assembly and parts inspector despite expressing them to others. Patient complains of some visual changes and akathisia which she attributes to restarting Prolixin and says this is very common for her when she restarts it or has a dose increase. Of note, typewriter assembly and parts inspector does not notice any akathisia, tremor or other EPS symptoms however it's possible that patient may be experiencing a subclinical amount of EPS. 10/09Patient reports akathisia and tardive dyskinesia from the Prolixin.? Patient shows typewriter assembly and parts inspector her mouth which she is moving and says she has some mouth and tongue movements.? She c/o restlessness in her legs and is thus walking the hallways.? To that end she asks if a.m. dose of Prolixin committee lowered to 2.5 mg to which typewriter assembly and parts inspector agrees.? At this point it is difficult to say if patient is having actual tardive dyskinesia or if she is feigning TD to lower her p.o. Prolixin dose, which her guardian/brother has reported she may do.? When looking at her mouth patient is clearly making it move and when distracted, mouth movements observed to by normal; similar observation made regarding akathesia; however it's possible that there could also be involuntarily mouth movent as well. Guardian says she has never had TD in the past.? She does not want any additional medications to mitigate this possible side effect.? Patient requests p.o. Prolixin to be discontinued and wants to just remain on the Decanoate.? Altitude Chamber Technician agrees with this plan.? While it is customary to overlap p.o. Prolixin with Decanoate, as it can take considerable time for Decanoate to reach steady state, it is however possible for decanoate to still become effective without p.o., though it will likely takes longer. 10/11 says TD and akathesia are significantly improved since dc'ing PO prolixin (none observed). She remains affable but guarded. Pt denies all psychiatric symptoms. She does not want to discuss events that occurred around admission or discuss hx diagnosis which she typically disputes, which makes it difficult to assess progress. Continue to rely on her guardians approximation of patients progress. However, off prolixin PO, patient might need to remain longer on unit; will discuss w/ guardian. 10/19 no change in presentation; no TD or akathisia observed; patient reports some mild intermittent tongue fasciculations but says it is much better.? Remains amenable to treatment plan.? Given patient's read a since will continue to reach out to guardian to help assess patient's stability 10/20Patient reports frustrating TD and restlessness.? Yesterday patient said it had been minimal for several days however she reports the last night she had much trouble sleeping due to feeling her legs are restless and today she demonstrates that she has a hard time sitting still.? Altitude Chamber Technician administered AIMS test: 10 Patient says that she is had the same symptoms for the past 5 years on Prolixin which have been about this level of intensity (patient has given some conflicting reports regarding his history and the week prior patient said that her history only included TD/akathisia at the initiation or restarting of Prolixin but that it eventually resolved on its own).? Altitude Chamber Technician reviewed medication options and listed the medications she has tried or considered reporting they are either ineffective, cause weight gain or also caused TD and does not want to switch meds.? She does not want any medication to ameliorate the symptoms including Ingrezza or propranolol, saying she rather tolerate these symptoms than have to take another medication.? Altitude Chamber Technician said he would discuss t his with her brother/guardian.? However patient agrees to remain on this medication going forward.? Of note, typewriter assembly and parts inspector observed tobias TD symptoms during aims test even when distracted by other tasks. TD does wax and wane. 10/21 no insight; wants off meds due to med side-effect of TD and restlessness. other providers whov'e had her in past remember some mild TD; typewriter assembly and parts inspector and staff speculate some of her symptoms may be exaggerated for effect, but as mentioned she has been observed with symptoms even when perceived to be alone. 10/24 patient reports she is miserable with medication side effects of slowed speech slow, slurred words, feeling drowsy.? Today she did not complain of TD or akathisia but the opposite.? Of note, patient did have slowed speech when speaking with typewriter assembly and parts inspector and slow movements of her body, however moments earlier when she was talking with social services manager in the hallway she was using normal speech and there was no psychomotor retardation.? Again typewriter assembly and parts inspector agrees that there is some amount of TD/akathisia or experience of restlessness and her body however these and other symptoms seem to be exaggerated in order to make a case for getting off Prolixin as the symptoms seem to vacillate between moderate/severe to absent depending on with whom she is speaking.? Patient continues to refuse any other medications to ameliorate symptoms; she also refuses to consider any other antipsychotics that may have less side effects. Patient does not have any insight into her history of behaviors or delusions and currently, cannot accurately reflect on whether she ultimately enjoyed her life off medications. Altitude Chamber Technician has discussed this case with 2 other psychiatrists who have known patient over the years and who report that off medications she is floridly psychotic and on medication she has been able to her life at some level. Given this collateral information as well as typewriter assembly and parts inspector's own observations when patient was 1st admitted, it remains typewriter assembly and parts inspector's opinion that off medications and without significant help in the community, including a guardian, she will end up homeless and terrified. -will organized family meeting with social services manager and Kong, her brother/guardian -patient is due for her 3rd installment of Prolixin Decanoate; initially it was hoped she could perhaps discharge soon after she received this 3rd dose.? However,? given her poor insight, her adamant, persistent request to have medications discontinued, and her guardians report that once she becomes stable, she feels and expresses the need to be on medications, it is typewriter assembly and parts inspector's opinion that if patient were to be discharged at this time she would very quickly decompensate and be unable to function in the community and end up homeless, hungry, scared and overwhelmed by her delusions.? Guardian fully agrees.? For patient's safety, she needs to remain on the unit even after getting her 3rd dose of Prolixin Decanoate until she returns to her minimal baseline where she accepts the need for the medication.? Regarding? medication side effects, as mentioned above patient likely has some amount of TD and perhaps restlessness however patient seems to exaggerate her symptoms depending on her audience. 2/3 patient says some minor reduction in TD/restlessness since lowering Prolixin dose. -To another staff patient said I have some kind of delusional disorder which is the 1st time typewriter assembly and parts inspector has heard of this patient referring to actually having? a psychiatric disorder.? 10/28 Patient disclosed To typewriter assembly and parts inspector that she think she has a delusional disorder and said that it is confusing to her since something is a delusion and some things are real; decided not to contest Marquis regarding 10/29: Pt is requesting prolixin level, A1c, lipids, and B12 labs. Reviewed medications to help with akathesia, will consider low dose ativan. 10/31 discussed labs with borderline cholesterol levels; patient does not want any medication but will work on diet and exercise to lower cholesterol; also discussed wrist tenderness which was diagnosed as Left de Quervain tenosynovitis. Orthopedist Dr. Maki Foss will follow up/tx with patient (see below).? Patient asking for hold off on submitting documents for Marquis order until Prolixin level returns; typewriter assembly and parts inspector will discuss with manager produce and guardian as well as documentation is timely and lab results may take several days or longer to return 11/01 typewriter assembly and parts inspector reviewed literature and discussed with clinical pharmacist; there is room for Prolixin levels to guide treatment however dosing typically remains a clinical decision, with a goal to use the lowest effective dose Overall patient has improved since admission.? She has the insight to understand she does struggle with delusions and can have a hard time distinguishing between what is real and what is paranoid delusion; she also decided not to contest her Marquis order this year, though she did want to lower her by monthly dose.? Write r will continue to discuss with guardian however patient seems to be approaching baseline given this improved insight. 11/04 patient tired today. She said hand feels much better after getting injection from Ortho. Altitude Chamber Technician talked with her about her medication regimen and asked which she thinks about it. She says that she plans on continuing to take it. Altitude Chamber Technician asked why and she said because it was such a catastrophe this past time. In typewriter assembly and parts inspector's opinion this acknowledgement is what team and guardian have been waiting to hear and hopefully indicates that patient has insight into her need for medication has reached baseline. Will discuss with guardian. Likely patient can be discharged soon after her next Prolixin Decanoate injection. 11/05/21: Weekend coverage: Continue current regime. 11/06/21: Weekend coverage: Continue current regime. 11/07 patient appears to have returned to baseline per her guardian and staff on the unit who have known her throughout the years. Guardian feels that she is actually doing better than she typically does when preparing for discharge, feeling that her insight is higher than usual, citing that she has herself acknowledged having a delusional disorder, is taking responsibility for actions that resulted in this admission and agrees to continuing to take the medication feeling a need for it. It is typewriter assembly and parts inspector's strong opinion that it is in patient's best interest to remain for her next Prolixin Decanoate injection which will better support her stability when discharged into the community. Patient reports hand feels much better; typewriter assembly and parts inspector will reach out to outpatient psychiatrist Dr. Melvin there as and discussed case, including typewriter assembly and parts inspector's opinion that patient may be able to tolerate lower dose of Prolixin dec. -starting Lisinopril 5mg daily for high blood pressure 11/09 patient id good mood and looking forward to discharging home. She denies any delusional thinking, AVH, SI or HI and feels safe going home. Patient again refer to her history of delusional thinking as a psychiatric illness, continuing to demonstrate her significantly improved insight. Patient remains with some mild TD of the tongue, [id number] akathisia but does not want any medications for these. Patient is very pleased with lisinopril having lowered her blood pressure. She says it has also resolved which she considered some cognitive dulling and some struggles with eyesight which she thinks may have been due to high blood pressure (typewriter assembly and parts inspector thinks this association is unlikely as patient's blood pressures were only moderately elevated; typewriter assembly and parts inspector explained this but also accepts that it is possible and is glad that she is feeling better). Patient expressed gratitude for treatment received on the unit. Discharge plan for tomorrow and patient will be picked up by her CHD worker. Patient has at least return to baseline if not exceeded and is not in imminent risk of harm to self or others. Her judgment and insight have significantly improved as she has concluded that she does have a psychiatric illness with associated delusional thinking and that she needs medications and order to remain stable. Patient is appropriate for discharge PLAN: pt signed CV Q 15 minute checks Patient is on a?community Marquis?extended and in effect until Nov 11, 2021; resubmitted around 11/01 with some changes Patient has a?guardian, her brother Kong Guillaume It is writers strong opinion that patient needs to remain on a Marquis order in order for her function in the community; it's also writers strong opinion that she continues to need a guardian as she has no insight into her condition (which is impaired even at baseline) and needs ongoing help in multiple areas in order to function in the community. HTN: resolved with lisinopril bun/cr wnl 1.Schizophrenia, paranoid type (pt carries this dx) -LOWERED Prolixin Dec 17mg IM due on 10/26/21 (last dose of Prolixin Decanoate 25 mg IM received on 10/12/21); lowered to see if it can mitigate some of patient's reported TD/restlessness/akathisia -Propranolol 10mg qhs for EPS, help with sleep -patient on community Marquis and cannot refuse Prolixin -Patient? refuses any meds to help migate symptoms and won't consider alternat shahriar to Prolixin (such as Clozapine which is very low risk for TD, but risk to causes wt gain). -DC'd PO Prolixin due to c/o TD and akathesia (dc'd on 10/10); typically, overalap Prolixin PO with Decanoate? (Decanoate 25 mg Q 2/3 weeks is roughly equivalent to Prolixin p.o. 15-20 mg daily Prolixin Dec is listed on her Marquis (CANNOT REFUSE), reviewed by typewriter assembly and parts inspector and specified by her guardian (literature reports decanoate q. 3 weeks or longer has been as effective as q.2 weeks which is something patient can discuss with outpatient provider but is something that may reduce side-effects and thus inc rease adherence) -DC'd 1:1 pt not intrusive or interfering with others patients treatment) 2.?Left de Quervain tenosynovitis (Left hand anatomical snuff box tenderness): resolved Patient reports she has point tenderness on her left hand at the anatomical snuffbox which was present before admission; says has worsened; denies any hx of fall or other hand trauma.? On examination patient point tenderness in left anatomical snuffbox; no tenderness elsewhere -left hand/wrist xray unremarkable, no fracture; -pain decreased with ibuprofen -Ortho consult got another set of images and dx Left de Quervain tenosynovitis who writes: ?assessment and plan: ? 1. Left de Quervain tenosynovitis ?I educated the patient about this condition ?we discussed the importance of activity modification, and avoiding activities that aggravate this condition. ? We discussed the risks and benefits of a steroid injection and she wished to proceed with a steroid injection. Injection #1: The risks and benefits of a steroid injection including but not limited to risk of damage to blood vessels, nerves, tendons, infection, skin bleaching, failure to improve symptoms, increased pain, and possible need for further injections or other intervention were discussed with the patient and the patient wishes to proceed with the steroid injection. Once consent was obtained, I sterilely prepped the area over the ? Left 1st dorsal compartment..? I then injected the ? First dorsal compartment tendon sheath with a combination of 1 mL of dexamethasone (4mg/ml), and? 0.5% plain Marcaine.? The patient tolerated the procedure well with no complications. She had some good early relief of symptoms following the injection. ?We are unable to give her our usual Comfort Cool neoprene thumb spica splint be cause she is here on the behavioral health floor and it? can be stretched out to more? than 12 in in length. If the patient continues to have? painful symptoms 8 weeks following this injection, they may call to schedule appointment to be seen? for possible 2nd injection, or to talk about possible surgery. I spent minutes with the patient and/or on the patient floor today, greater than?50% of which was spent counseling/coordinating care. Reason for contiued inpatient stay Substantial Risk for: stable for discharge
[2021-11-09 20:32] VITALS: BP 137/72; PULSE 63; RESP 16; TEMP 36.3; O2SAT 96
[2021-11-09] MEDS: Melatonin 3 MG TABLET 6 MG PO (20:39)
[2021-11-10] MEDS: Melatonin 3 MG TABLET PO (04:24)
[2021-11-10 06:00] VITALS: BP 126/74; PULSE 76; RESP 14; O2SAT 97
[2021-11-10] MEDS: lisinopriL 5 MG TABLET PO (08:08)
[2021-11-10] MEDS: polyethylene glycoL 3350 17 GM POWD.PACK PO (08:20)
--- NOTE | 2021-11-10 09:34 | PM.PSYDC ---
DS: Providers Provider Date of Service: 11/10/21 Date of admission: 09/22/21 14:18 Date of discharge: 11/10/21 Primary care physician: Kenton Tolliver Attending physician on admission: Rogerio Carter Consults: 10/30/21 13:43 Consult to Orthopedics Routine Consulting Provider: Paz Downs Reason for consultation: painful tendonitis of L thumb Attending physician on discharge: Rogerio Carter DS: Diagnosis Discharge Diagnosis (1) Schizophrenia: Status: Chronic (2) De Quervain's tenosynovitis: Status: Acute DS: Medications Discharge Medications Home Medications: Home Medications Medication Instructions Recorded Confirmed fluphenazine decanoate 25 mg/mL 25 mg IM Q2W 09/22/21 09/22/21 injection solution Previous Rx's Medication Instructions Recorded lisinopril 5 mg tablet 5 mg PO DAILY 30 Days #30 tab 11/10/21 Mental Status Exam Mental Status Exam Narrative: Pt is alert and oriented; behavior calm, cooperative, friendly; able to talk about herself; dressed neatly in casual cloths and well groomed. Mood is described as good and affect congruent, bright, smiling and overall warm;? eye contact is appropriate; Speech is normal rate, volume; no psychomotor retardation present; mild TD/ tongue movements reported; thought process is organized and goal directed; Thought content on treatment and discharge; denies any delusional thinking; denies SI/HI or AVH;? Patients insight and judgment are impaired but significantly improved and adequate.? Data Data Completed and Pending Completed studies during hospitalization [Text1]: 10/30/21 11/09/21 09:33 07:06 BUN 15 Creatinine 0.81 Estim Creat Clear Calc 61.7 Estimated GFR > 60 Ref Lab Test Result See Note Imaging Diagnostic Imaging Impressions Hand X-Ray 10/27/21 14:31 IMPRESSION: Unremarkable appearance of the left hand. No focal abnormality in the region of concern. Wrist X-Ray 10/31/21 10:50 IMPRESSION: No abnormal findings DS: Summary Hospital Course Hospital Course: Patient is a 61-year-old female with history of Delusional disorder (r/o schizophrenia), on a [employer] Marquis and with her brother as guardian, who presents via EMS following a wellness check by [facility] staff and police who found patient's apartment in a disheveled state and patient with paranoid delusions that her food was poisoned, there were bombs in the toilet and that [facility] staff was a part of the [place] secret police who were planning her demise, in the face of going off her? Prolixin Decanoate this past December.? On admission she denied any SI, HI, AVH or any delusional thinking; she also denied that any of the reported events or findings from [facility]'s wellness check were true and denied that she has a mental illness.? Patient refused to sign in and was on a 12 B.? Patient was willing to take Prolixin p.o. She lacks all insight. -Patient is on a?community Marquis; Patient has a?guardian, her brother [facility] COURSE: Patient continues to lack all insight and has become verbally aggressive physically posturing with menacing affect, intruding into staff's personal space, verbally harassing staff and making it difficult for staff to carry out work on the unit.? Patient's behaviors have become unsafe; she refuses to increase p.o. Prolixin and for staff and milieu safety will order Prolixin Decanoate 25 mg IM which is on her Marquis and which her guardian says patient needs and agrees she should get. -signed CV after talking with guardian; also agreed with Prolixin Decanoate -patient superficially polite but easily triggered and intense anger; remains with paranoid, persecutory delusions and some grandiosity 09/30 patient remains superficially polite; guarded.? She has not been challenging staff.? Patient reports she is tired but denies any symptoms; agrees to increasing Prolixin p.o. (which is on Marquis and cannot be refused) -Prolixin 25 mg decanoate is roughly equivalent to getting Prolixin 20 mg p.o. daily; additionally p.o. doses are overlapped for several weeks after restarting Decanoate.? Patient gets Decanoate every 2 weeks and literature typically uses q. 3 weeks for conversion so will titrate p.o. Prolixin to about 15 mg daily.? Discussed with patient who agrees 10/07 remains superficially polite; is guarded; denies all psychiatric symptoms, though intermittently internally preoccupied; pt has denied paranoid, persecutory delusions to typewriter repairer despite expressing them to others. Patient complains of some visual changes and akathisia which she attributes to restarting Prolixin and says this is very common for her when she restarts it or has a dose increase. Of note, typewriter repairer does not notice any akathisia, tremor or other EPS symptoms however it's possible that patient may be experiencing a subclinical amount of EPS. 10/09Patient reports akathisia and tardive dyskinesia from the Prolixin.? Patient shows typewriter repairer her mouth which she is moving and says she has some mouth and tongue movements.? She c/o restlessness in her legs and is thus walking the hallways.? To that end she asks if a.m. dose of Prolixin committee lowered to 2.5 mg to which typewriter repairer agrees.? At this point it is difficult to say if patient is having actual tardive dyskinesia or if she is feigning TD to lower her p.o. Prolixin dose, which her guardian/brother has reported she may do.? When looking at her mouth patient is clearly making it move and when distracted, mouth movements observed to by normal; similar observation made regarding akathesia; however it's possible that there could also be involuntarily mouth movent as well. Guardian says she has never had TD in the past.? She does not want any additional medications to mitigate this possible side effect.? Patient requests p.o. Prolixin to be discontinued and wants to just remain on the Decanoate.? Senior Caregiver agrees with this plan.? While it is customary to overlap p.o. Prolixin with Decanoate, as it can take considerable time for Decanoate to reach steady state, it is however possible for decanoate to still become effective without p.o., though it will likely takes longer. 10/11 says TD and akathesia are significantly improved since dc'ing PO prolixin (none observed). She remains affable but guarded. Pt denies all psychiatric symptoms. She does not want to discuss events that occurred around admission or discuss hx diagnosis which she typically disputes, which makes it difficult to assess progress. Continue to rely on her guardians approximation of patients progress. However, off prolixin PO, patient might need to remain longer on unit; will discuss w/ guardian. 10/19 no change in presentation; no TD or akathisia observed; patient reports some mild intermittent tongue fasciculations but says it is much better.? Remains amenable to treatment plan.? Given patient's read a since will continue to reach out to guardian to help assess patient's stability 10/20Patient reports frustrating TD and restlessness.? Yesterday patient said it had been minimal for several days however she reports the last night she had much trouble sleeping due to feeling her legs are restless and today she demonstrates that she has a hard time sitting still.? Senior Caregiver administered AIMS test: 10 Patient says that she is had the same symptoms for the past 5 years on Prolixin which have been about this level of intensity (patient has given some conflicting reports regarding his history and the week prior patient said that her history only included TD/akathisia at the initiation or restarting of Prolixin but that it eventually resolved on its own).? Senior Caregiver reviewed medication options and listed the medications she has tried or considered reporting they are either ineffective, cause weight gain or also caused TD and does not want to switch meds.? She does not want any medication to ameliorate the symptoms including Ingrezza or propranolol, saying she rather tolerate these symptoms than have to take another medication.? Senior Caregiver said he would discuss this with her brother/guardian.? However patient agrees to remain on this medication going forward.? Of note, typewriter repairer observed tobias TD symptoms during aims test even when distracted by other tasks. TD does wax and wane. 10/21 no insight; wants off meds due to med side-effect of TD and restlessness. other providers whov'e had her in past remember some mild TD; typewriter repairer and staff speculate some of her symptoms may be exaggerated for effect, but as mentioned she has been observed with symptoms even when perceived to be alone. 10/24 patient reports she is miserable with medication side effects of slowed speech slow, slurred words, feeling drowsy.? Today she did not complain of TD or akathisia but the opposite.? Of note, patient did have slowed speech when speaking with typewriter repairer and slow movements of her body, however moments earlier when she was talking with social services director in the hallway she was using normal speech and there was no psychomotor retardation.? Again typewriter repairer agrees that there is some amount of TD/akathisia or experience of restlessness and her body however these and other symptoms seem to be exaggerated in order to make a case for getting off Prolixin as the symptoms seem to vacillate between moderate/severe to absent depending on with whom she is speaking.? Patient continues to refuse any other medications to ameliorate symptoms; she also refuses to consider any other antipsychotics that may have less side effects. Patient does not have any insight into her history of behaviors or delusions and currently, cannot accurately reflect on whether she ultimately enjoyed her life off medications. Senior Caregiver has discussed this case with 2 other psychiatrists who have known patient over the years and who report that off medications she is floridly psychotic and on medication she has been able to her life at some level. Given this collateral information as well as typewriter repairer's own observations when patient was 1st admitted, it remains typewriter repairer's opinion that off medications and without significant help in the community, including a guardian, she will end up homeless and terrified. -patient is due for her 3rd installment of Prolixin Decanoate; initially it was hoped she could perhaps discharge soon after she received this 3rd dose.? However,? given her poor insight, her adamant, persistent request to have medications discontinued, and her guardians report that once she becomes stable, she feels and expresses the need to be on medications, it is typewriter repairer's opinion that if patient were to be discharged at this time she would very quickly decompensate and be unable to function in the community and end up homeless, hungry, scared and overwhelmed by her delusions.? Guardian fully agrees.? For patient's safety, she needs to remain on the unit even after getting her 3rd dose of Prolixin Decanoate until she returns to her minimal baseline where she accepts the need for the medication.? Regarding? medication side effects, as mentioned above patient likely has some amount of TD and perhaps restlessness however patient seems to exaggerate her symptoms depending on her audience. 2/3 patient says some minor reduction in TD/restlessness since lowering Prolixin dose. -To another staff patient said I have some kind of delusional disorder which is the 1st time typewriter repairer has heard of this patient referring to actually having? a psychiatric disorder.? 2/4 Patient disclosed To typewriter repairer that she think she has a delusional disorder and said that it is confusing to her since something is a delusion and some things are real; decided not to contest Marquis regarding 10/31 discussed labs with borderline cholesterol levels; patient does not want any medication but will work on diet and exercise to lower cholesterol; also discussed wrist tenderness which was diagnosed as Left de Quervain tenosynovitis. Orthopedist Dr. Maki Foss will follow up/tx with patient (see below).? Patient asking for hold off on submitting documents for Marquis order until Prolixin level returns; typewriter repairer will discuss with commercial attache and guardian as well as documentation is timely and lab results may take several days or longer to return 11/01 typewriter repairer reviewed literature and discussed with clinical pharmacist; there is room for Prolixin levels to guide treatment however dosing typically remains a clinical decision, with a goal to use the lowest effective dose Overall patient has improved since admission.? She has the insight to understand she does struggle with delusions and can have a hard time distinguishing between what is real and what is paranoid delusion; she also decided not to contest her Marquis order this year, though she did want to lower her by monthly dose.? Senior Caregiver will continue to discuss with guardian however patient seems to be approaching baseline given this improved insight. 11/04 patient tired today.? She said hand feels much better after getting injection from Ortho.? Senior Caregiver talked with her about her medication regimen and asked which she thinks about it.? She says that she plans on continuing to take it.? Senior Caregiver asked why and she said because it was such a catastrophe this past time. In typewriter repairer's opinion this acknowledgement is what team and guardian have been waiting to hear and hopefully indicates that patient has insight into her need for medication has reached baseline.? Will discuss with guardian.? Likely patient can be discharged soon after her next Prolixin Decanoate injection. 11/07 patient appears to have returned to baseline per her guardian and staff on the unit who have known her throughout the years.? Guardian feels that she is actually doing better than she typically does when preparing for discharge, feeling that her insight is higher than usual, citing that she has herself acknowledged having a delusional disorder, is taking responsibility for actions that resulted in this admission and agrees to continuing to take the medication feeling a need for it.? It is typewriter repairer's strong opinion that it is in patient's best interest to remain for her next Prolixin Decanoate injection which will better support her stability when discharged into the community.? Patient reports hand feels much better; typewriter repairer will reach out to outpatient psychiatrist Dr. Melvin there as and discussed case, including typewriter repairer's opinion that patient may be able to tolerate lower dose of Prolixin dec. -starting Lisinopril 5mg daily for high blood pressure 11/09 patient id good mood and looking forward to discharging home.? She denies any delusional thinking, AVH, SI or HI and feels safe going home.? Patient again refer to her history of delusional thinking as a psychiatric illness, continuing to demonstrate her significantly improved insight.? Patient remains with some mild TD of the tongue, [id number] akathisia but does not want any medications for these.? Patient is very pleased with lisinopril having lowered her blood pressure.? She says it has also resolved which she considered some cognitive dulling and some struggles with eyesight which she thinks may have been due to high blood pressure (typewriter repairer thinks this association is unlikely as? patient's blood pressures were only moderately elevated; typewriter repairer explained this but also accepts that it is possible and is glad that she is feeling better).? Patient expressed gratitude for treatment received on the unit.? Discharge plan for tomorrow and patient will be picked up by her CHD worker.? Patient has at least return to baseline if not exceeded and is not in imminent risk of harm to self or others.? Her judgment and insight have significantly improved as she has concluded that she does have a psychiatric illness with associated delusional thinking and that she needs medications and order to remain stable.? Patient is appropriate for discharge 1.Schizophrenia, paranoid type (pt carries this dx) -Prolixin Dec 17mg IM due on 10/26/21 (last dose of Prolixin Decanoate 25 mg IM received on 10/12/21); lowered to see if it can mitigate some of patient's reported TD/restlessness/akathisia -DC'd PO Prolixin due to c/o TD and akathesia (dc'd on 10/10); typically, overlap Prolixin PO with Decanoate however patient was able to stabilize w/out PO prolixin? (Decanoate 25 mg Q 2/3 weeks is roughly equivalent to Prolixin p.o. 15-20 mg daily -Propranolol 10mg qhs for EPS, help with sleep -It is writers strong opinion that patient needs to remain on a Marquis order in order for her function in the community; it's also writers strong opinion that she continues to need a guardian as she has no insight into her condition (which is impaired even at baseline) and needs ongoing help in multiple areas in order to function in the community. 2. Hypertension: Patient was started on lisinopril 5 mg to good effect; patient reported that this significantly helped resolve some cognitive dulling she felt she was experiencing. 3. EPS symptoms -patient had some [id number] tardive dyskinesia and akathisia which did lessened in intensity as Prolixin dose was lowered -Patient understands EPS that it is caused by antipsychotic medications; however she dislikes the idea polypharmacy and consistently refused meds to help migate EPS symptoms and won't consider alternatives to Prolixin 4.?Left de Quervain tenosynovitis (Left hand anatomical snuff box tenderness): resolved Patient reports she has point tenderness on her left hand at the anatomical snuffbox which was present before admission; says has worsened; denies any hx of fall or other hand trauma.? On examination patient point tenderness in left anatomical snuffbox; no tenderness elsewhere -left hand/wrist xray unremarkable, no fracture; -pain decreased with ibuprofen -Ortho consult got another set of images and dx Left de Quervain tenosynovitis who writes: ?assessment and plan: ? 1. Left de Quervain tenosynovitis ?I educated the patient about this condition ?we discussed the importance of activity modification, and avoiding activities that aggravate this condition. ? We discussed the risks and benefits of a steroid injection and she wished to proceed with a steroid injection. Injection #1: The risks and benefits of a steroid injection including but not limited to risk of damage to blood vessels, nerves, tendons, infection, skin bleaching, failure to improve symptoms, increased pain, and possible need for further injections or other intervention were discussed with the patient and the patient wishes to proceed with the steroid injection. Once consent was obtained, I sterilely prepped the area over the ? Left 1st dorsal compartment..? I then injected the ? First dorsal compartment tendon sheath with a combination of 1 mL of dexamethasone (4mg/ml), and? 0.5% plain Marcaine.? The patient tolerated the procedure well with no complications. She had some good early relief of symptoms following the injection. ?We are unable to give her our usual Comfort Cool neoprene thumb spica splint because she is here on the behavioral health floor and it? can be stretched out to more? than 12 in in length. If the patient continues to have? painful symptoms 8 weeks following this injection, they may call to schedule appointment to be seen? for possible 2nd injection, or to talk about possible surgery. Time spent discussing smoking cessation with patient: 3 to 10 minutes Status at Discharge Functional status at discharge: independent ambulation Overall status at discharge: patient is back to baseline Time Spent with Patient Time attestation: Total time spent providing and/or coordinating discharge services: Time spent: Greater than 30 minutes Discharge Plan Discharge Patient Disposition: Home, Self-Care Discharge Diagnosis: Schizophrenia, paranoid type Referrals: Dr. Milton Prabhakar (psychiatric medication management) [Other] - 11/29/21 9:00 am (This appointment is in-office) Gina March, [facility] [Nurse Practitioner] - 1 Week (WILL CALL US WITH FOLLOW-UP APPT. Or patient needs to follow-up with her provider due to not having a phone. Pt. is aware) Discharge Medications: New lisinopril 5 mg Tablet 5 mg PO DAILY 30 Days Qty: 30 0RF Protocol: Hold for SBP< HOLD for SBP < : 90 melatonin 3 mg Tablet 3 mg PO BEDTIME PRN (Reason: CONTINUED insomnia) Qty: 0 0RF fluphenazine decanoate 25 mg/mL Solution 17 mg IM Q14D@0900 14 Days Qty: 5 1RF Discontinued fluphenazine decanoate 25 mg/mL solution 25 mg IM Q2W 0RF Discharge Orders: Discharge Order (Routine); Ordered 11/10/21 Ordered By: Rogerio Carter Diet: regular diet Activity on Discharge: As tolerated Stand Alone Forms: Patient Portal Discharge page, Community Support Care Plan Goals: Maintain mood and safe behaviors Take medications as prescribed Practice coping skills Continue with outpatient providers and reach out to them as needed Health Concerns: Mood stability and behaviors Hypertension EPS (Extrapyrimidal symptoms) Plan of Treatment: Follow up with your PCP, psychiatric provider and other outpatient providers regarding above concerns Take medications as prescribed Assessment: Risk assessment at time of discharge:? Patient was interviewed prior to discharge and found to be fully oriented and without any SI or HI. Patient has insight and demonstrates good judgment in terms of wanting to continue treatment. Patient is not in imminent risk of harm to self or others and has a safety plan that includes presenting to the closest ER or calling 911 if feeling unsafe.? Patient has been observed closely by nursing and unit staff throughout admission; patient has not engaged in any behaviors that suggest dangerousness to self or others and has demonstrated appropriate behaviors and impulse control Discharge Date/Time: 11/10/21 13:00
== END 2021-11-10 13:00 | disposition home or self-care (01) | DRG 885 ==
LOC: HO.ED 13:25 → HO.PM5 09-22 14:41
PROVIDERS: Nurse Practitioner Family; Physician Assistant; Registered Nurse; Admitting Provider Psychiatry & Neurology Psychiatry; Emergency Provider Emergency Medicine; PCP Hospitalist; Visit Provider Psychiatry & Neurology Psychiatry
DX: F20.0 Paranoid schizophrenia (principal); R45.850 Homicidal ideations; M65.4 Radial styloid tenosynovitis [de Quervain]; Z20.822 Contact with and (suspected) exposure to COVID-19; Z79.899 Other long term (current) drug therapy
CPT/HCPCS: 36415; 73110; 73130; 80048; 80061; 80076; 80299; 82077; 82565; 82607; 83036; 83690; 84520; 85025; 87635; 93005; 96372; 99285; J1200; J2060; J2680

== ENCOUNTER → 2022-01-31 10:49 | Outpatient (BNVA) | payer MEDICARE, MEDICAID, SELFPAY | PROVIDERS: PCP Hospitalist; Visit Provider Orthopaedic Surgery | DX: M65.4 Radial styloid tenosynovitis [de Quervain] (principal) | CPT/HCPCS: 20550; 99212; J1100 ==

== ENCOUNTER 2022-10-31 20:12 | Inpatient (IN) | payer MEDICARE, MEDICAID, SELFPAY ==
--- OUTSIDE RECORDS SUMMARY | 2022-10-31 20:14 | XMS_ITS | Continuity of Care Document ---
:1960 Author Organization [facility] Adult Address [address] [place] [address]- Care Team Providers Name Role Phone Joaquim RIGGS, Gina Wooten Primary Care Physician Encounter [facility] [place] Date(s): 12/16/21 - 01/15/22 [facility] Adult [address] [place] [address]- Allergies, Adverse Reactions, Alerts Substance Reaction Severity Status Peanuts Active Immunizations Given and Recorded Vaccine Date Status Refusal Reason SARS-CoV-2 (COVID-19) mRNA-1273 vaccine1 02/12/21 Recorde d SARS-CoV-2 (COVID-19) mRNA-1273 vaccine 01/01/21 Recorded Influenza Virus Vaccine (oldterm) 06/28/19 Recorded influenza virus vaccine, inactivated2 07/09/18 Given influenza virus vaccine, inactivated3 08/08/17 Given influenza virus vaccine, inactivated 06/21/17 Recorded influenza virus vaccine, inactivated4 07/08/16 Recorded influenza virus vaccine, inactivated 06/21/15 Given influenza virus vaccine, inactivated 06/23/14 Given pneumococcal 23-valent vaccine 06/23/14 Given Tet/diphth/pertussis, acel (oldterm) 09/18/12 Given FluLaval (oldterm) 09/18/12 Given 1Result Comment: lot [id number] exp 06-19-2021 [id number] Comment: [07/09/2018] [id number] Note: [id number] Comment: [07/14/2016] [facility] amlodipine-benazepril 5 mg-20 mg oral capsule 1 capsule, By Mouth, Daily, # 30 capsule, 5 Refills, Maintenance, 12/19/21 9:02:00 EDT, [facility], Partial fill upon patient request if the prescription is for a schedule II opioiddrug., 1 capsule By Mouth Daily, 165, cm, 2... Start Date: 12/19/21 Status: OrderedProlixin DECANOATE Inj = 17 mg, Intramuscular, Every 28 days, 0 Refills, Maintenance, 02/18/16 11:45:58 EDT, Injection Start Date: 02/18/16 Status: Ordered Problem List Condition Effective Dates Status Health Status Informant Benign essential Active hypertension(Confirmed) Calcification of breast(Confirmed)1 Active Paranoid Schiophrenia(Confirmed) Active Hypothyroidism(Confirmed) Active Anemia, iron deficiency(Confirmed) Active Obesity (BMI 30-39.9)(Confirmed) Active Osteopenia(Confirmed) Active Osteopenia -elective use of raloxifene Active since 2018.(Confirmed) 1microscopic being monitored by compression mammogram Vital Signs Most recent to oldest 1 2 3 [Reference Range]: Pulse Rate [55-90 bpm] 73 bpm 73 bpm (12/16/21 9:30 AM) (12/16/21 9:15 AM) Blood Pressure [90-138/55-84 mm 165/95 mm Hg 130/88 mm Hg 140/84 mm Hg Hg] *H* (12/16/21 9:30 AM) *H* (12/16/21 3:10 PM) (12/16/21 9:15 AM) Blood pressure sites Arm, right Arm, right Arm, left (12/16/21 3:10 PM) (12/16/21 9:30 AM) (12/16/21 9:1 5 AM) Social History Social History Type Response Smoking Status Never smoker entered on: 10/16/17 Sex
--- OUTSIDE RECORDS SUMMARY | 2022-10-31 20:14 | XMS_ITS | Continuity of Care Document ---
:1960 Author Organization [facility] Adult Address [address] [place] [address]- Care Team Providers Name Role Phone Joaquim RIGGS, Gina Wooten Primary Care Physician [facility]counter [facility] Date(s): 03/02/22 - 03/09/22 [facility] Adult [address] [place] [address]- Encounter Diagnosis Benign essential hypertension (Discharge Diagnosis) - 03/02/22 Hypothyroidism (Discharge Diagnosis) - 03/02/22 Paranoid Schiophrenia (Discharge Diagnosis) - 03/02/22 Attending Physician: Joaquim RIGGS, Gina Wooten Referring Physician: Rafita Herbert MD Allergies, Adverse Reactions, Alerts Substance Reaction Severity [...] FluLaval (oldterm) 09/18/12 Given 1Result Comment: lot [id number] exp 06-19-2021 [id number] Comment: [07/09/2018] [id number] Note: [id number] Comment: [07/14/2016[facility]benazepril 5 mg-20 mg oral capsule 1 capsule, By Mouth, Daily, # 30 capsule, 5 Refills, Maintenance, 12/19/21 9:02:00 EDT, [facility] Partial fill upon patient request if the prescription is for a schedule II opioiddrug., 1 capsule By Mouth Daily, 165, cm, ... Start Date: 12/19/21 Status: OrderedProlixin DECANOATE Inj [...] Osteopenia -elective use of raloxifene Active since 2017.(Confirmed) 1microscopic being monitored by compression mammogram Diagnosis Diagnosis Type Effective Dates Health Clinical Infor mant Status Service Benign essential Discharge 03/02/22 hypertension Diagnosis Hypothyroidism Discharge 03/02/22 Diagnosis Paranoid Discharge 03/02/22 Schiophrenia Diagnosis Vital Signs Most recent to oldest [Reference Range]: 1 Height 165 cm (03/02/22 8:17 AM) Weight 52.6 kg (03/02/22 8:17 AM) Oxygen Saturation [94-100 %] 99 % (03/02/22 8:17 AM) Pulse Rate [55-90 bpm] 67 bpm (03/02/22 8:17 AM) Body Mass Index [18.5-24.99] 19.32 (03/02/22 8:17 AM) Blood Pressure [90-138/55-84 mm Hg] 135/82 mm Hg (03/02/22 8:17 AM) Temperature [96.8-100.4 DegF] 98.2 DegF (03/02/22 8:17 AM) Blood pressure sites Arm, left (03/02/22 8:17 AM) Temperature Route Temporal (03/02/22 8:17 AM) Weight Obtained Via Standing scale (03/02/22 8:17 AM) Social History Social History Type Response Smoking Status Never smoker entered on: 10/16/17 Sex
--- OUTSIDE RECORDS SUMMARY | 2022-10-31 20:14 | XMS_ITS | Continuity of Care Document ---
:1960 Author Organization [facility] Adult Address [address] [place] [address]- Care Team Providers Name Role Phone Joaquim RIGGS, Gina Wooten Primary Care Physician Encounter [facility] Date(s): 11/11/21 - 12/23/21 [facility] Adult [address] [place] [address]- Attending Physician: Gina March NP Referring Physician: Unruly ARREOLA, Kenton Wright Allergies, Adverse Reactions, Alerts Substance Reaction Severity [...] FluLaval (oldterm) 09/18/12 Given 1Result Comment: lot [id number] exp 06-19-2021 [id number] Comment: [07/09/2018] [id number] Note: [id number] Comment: [07/14/2016] [facility] amlodipine-benazepril 5 mg-20 mg oral capsule 1 capsule, By Mouth, Daily, # 30 capsule, 5 Refills, Maintenance, 12/19/21 9:02:00 EDT, Capsule, [facility], Partial fill upon patient request if the prescription is for a schedule II opioiddrug., 1 capsule By Mouth Daily, 165, cm, ... Start Date: 12/19/21 Status: OrderedProlixin DECANOATE Inj = 17 mg, Intramuscular, Every 28 days, 0 Refills, Maintenance, 02/18/16 11:45:58 EDT, Injection Start Date: 02/18/16 Status: Ordered Problem List Condition Effective Dates Status Health Status Informant Benign essential Active hypertension(Confirmed) Benign hypertension(Confirmed) Active Calcification of breast(Confirmed)1 Active Paranoid Schiophrenia(Confirmed) Active Hypothyroidism(Confirmed) Active Anemia, iron deficiency(Confirmed) Active Obesity (BMI 30-39.9)(Confirmed) Active Osteopenia(Confirmed) Active Osteopenia -elective use of raloxifene Active since 2017.(Confirmed) 1microscopic being monitored by compression mammogram Social History Social History Type Response Smoking Status Never smoker entered on: 10/16/17 Sex
--- OUTSIDE RECORDS SUMMARY | 2022-10-31 20:14 | XMS_ITS | Continuity of Care Document ---
:[address] [facility] Adult Address [address] [place] [address]- Care Team Providers Name Role Phone Joaquim RIGGS, Gina Wooten Primary Care Physician Encounter [facility] Date(s): 12/28/21 - 01/27/22 [facility] Adult [address] [place] [address]- Allergies, Adverse Reactions, Alerts Substance Reaction Severity [...] FluLaval (oldterm) 09/18/12 Given 1Result Comment: lot [id number] exp 06-19-2021 [id number] Comment: [07/09/2018] [id number] Note: [id number] Comment: [07/14/2016] [facility] amlodipine-benazepril 5 mg-20 mg oral capsule 1 capsule, By Mouth, Daily, # 30 capsule, 5 Refills, Maintenance, 12/19/21 9:02:00 EDT, [facility] Partial fill upon patient request [...] 2018.(Confirmed) 1microscopic being monitored by compression mammogram Social History Social History Type Response Smoking Status Never smoker entered on: 10/16/17 Sex
--- OUTSIDE RECORDS SUMMARY | 2022-10-31 20:14 | XMS_ITS | Continuity of Care Document ---
:1960 Author Organization [facility] Adult Address [address] [place] [address]- Care Team Providers Name Role Phone Joaquim RIGGS, Gina Wooten Primary Care Physician Encounter [facility] Date(s): 11/30/21 - 12/07/21 [facility] Adult [address] [place] [address]- Encounter Diagnosis Benign essential hypertension (Discharge Diagnosis) - 11/30/21 Hypothyroidism (Discharge Diagnosis) - 11/30/21 Anemia, iron deficiency (Discharge Diagnosis) - 11/30/21 Paranoid Schiophrenia (Discharge Diagnosis) - 11/30/21 Attending Physician: Not on Staff, Attending MD Allergies, Adverse Reactions, Alerts Substance Reaction [...] FluLaval (oldterm) 09/18/12 Given 1Result Comment: lot [id number] exp 06-19-2021 [id number] Comment: [07/09/2018] [id number] Note: [id number] Comment: [07/14/2016] [facility] lisinopril 5 mg oral tablet 5 mg, 1, tablet, By Mouth, Daily, # 30 tablet, Refills 0, Maintenance, 11/30/21 7:11:00 EST, Partialfill upon patient request if the prescription is for a schedule II opioid drug. Start Date: 11/30/21 Status: OrderedProlixin DECANOATE Inj = 17 mg, [...] Diagnosis Type Effective Dates Health Clinical Infor [facility] Status Service Benign essential Discharge 11/30/21 hypertension Diagnosis Hypothyroidism Discharge 11/30/21 Diagnosis Anemia, iron Discharge 11/30/21 deficiency Diagnosis Paranoid Discharge 11/30/21 Schiophrenia Diagnosis Vital Signs Most recent to oldest [Reference Range]: 1 2 Height 155 cm 155 cm (11/30/21 7:35 AM) (11/30/21 7:08 AM) Weight 54 kg (11/30/21 7:08 AM) Oxygen Saturation [94-100 %] 98 % (11/30/21 7:08 AM) Pulse Rate [55-90 bpm] 55 bpm (11/30/21 7:08 AM) Body Mass Index [18.5-24.99] 22.48 (11/30/21 7:08 AM) Blood Pressure [90-138/55-84 mm Hg] 138/78 mm Hg 140/ 78 mm Hg (11/30/21 7:35 AM) *H* (11/30/21 7:08 AM) Temperature [96.8-100.4 DegF] 98.4 DegF (11/30/21 7:08 AM) Blood pressure sites Arm, left (11/30/21 7:08 AM) Temperature Route Oral (11/30/21 7:08 AM) Social History Social History Type Response Smoking Status Never smoker entered on: 10/16/17 Sex
--- OUTSIDE RECORDS SUMMARY | 2022-10-31 20:15 | XMS_ITS | Continuity of Care Document ---
:1960 Author Organization [facility] Adult Address [address] [place] [address]- Care Team Providers Name Role Phone Piedad ARREOLA, Rafita Reyes Primary Care Physician Encounter [facility] [place] Date(s): 09/06/22 - 10/06/22 [facility] Adult [address] [place] [address]- Allergies, Adverse Reactions, Alerts Substance Reaction Severity [...] FluLaval (oldterm) 09/18/12 Given 1Result Comment: lot [id number] exp 06-19-2021 [id number] Comment: [07/09/2018] [id number] Note: [id number] Comment: [07/14/2016] [facility] amlodipine-benazepril 5 mg-20 mg oral capsule 1 capsule, By Mouth, Daily, # 30 capsule, 5 Refills, Maintenance, 12/19/21 9:02:00 EDT, Capsule, [facility], Partial fill upon patient request if the prescription is for a schedule II opioiddrug., 1 capsule By Mouth Daily, 165, cm, 2... Start Date: 12/19/21 Status: OrderedProlixin DECANOATE Inj = 17 mg, Intramuscular, Every 28 days, 0 Refills, Maintenance, 02/18/16 11:45:58 EDT, Injection Start Date: 02/18/16 Status: Ordered Problem List Condition Confirmation Course Effective Dates Status Health I nformant Status Benign essential Confirmed Active hypertension Calcification of Confirmed Active breast1 Paranoid Schiophrenia Confirmed Active Hypothyroidism Confirmed Active Anemia, iron Confirmed Active deficiency Obesity (BMI 30-39.9) Confirmed Active Osteopenia Confirmed Active Osteopenia -elective Confirmed Active use of raloxifene since 2018. 1microscopic being monitored by compression mammogram Social History Social History Type Response Smoking Status Never smoker entered on: 10/16/17 Sex Patient Care team information Care Team PersonnelName: Piedad ARREOLA, Rafita Reyes Position: [facility] Primary Care Physician Member Role: PCP Address: Address: [address] [place] [address]- Care Team Related PersonsName: NO, NONE Name: CHAPIN GERONIMO Address: home [id number] [place] [address] MD [place]ON[place] [id number] Name: BEAN CHANEL Name: TRISHA CHANEL Address: home [address] [place] [address]
--- OUTSIDE RECORDS SUMMARY | 2022-10-31 20:15 | XMS_ITS | Continuity of Care Document ---
:1960 Author Organization [facility] Adult Address [address] [place] [address]- Care Team Providers Name Role Phone Joaquim RIGGS, Gina Wooten Primary Care Physician [place] [facility] [place] 12[place]27[place]21 [place] 01/03/22 [facility] [address] [place] [address]- Encounter Diagnosis Benign essential hypertension (Discharge Diagnosis) - 12/27/21 Hypothyroidism (Discharge Diagnosis) - 12/27/21 Paranoid Schiophrenia (Discharge Diagnosis) - 12/27/21 Attending Physician: Gina March NP Referring Physician: Rafita Herbert MD Allergies, Adverse [...] FluLaval (oldterm) 09/18/12 Given 1Result Comment: lot [id number] exp 06-19-2021 [id number] Comment: [07/09/2018] [id number] Note: [id number] Comment: [07/14/2016] [facility] amlodipine-benazepril 5 mg-20 mg oral capsule 1 capsule, By Mouth, Daily, # 30 capsule, 5 Refills, Maintenance, 12/19/21 9:02:00 EDT, Capsule, [facility], Partial fill upon patient request if the [...] Diagnosis Type Effective Dates Health Clinical Infor [facility] Status Service Benign essential Discharge 12/27/21 hypertension Diagnosis Hypothyroidism Discharge 12/27/21 Diagnosis Paranoid Discharge 12/27/21 Schiophrenia Diagnosis Vital Signs Most recent to oldest [Reference Range]: 1 Height 165 cm (12/27/21 8:51 AM) Weight 53.8 kg (12/27/21 8:51 AM) Oxygen Saturation [94-100 %] 100 % (12/27/21 8:51 AM) Pulse Rate [55-90 bpm] 72 bpm (12/27/21 8:51 AM) Body Mass Index [18.5-24.99] 19.76 (12/27/21 8:51 AM) Blood Pressure [90-138/55-84 mm Hg] 135/84 mm Hg (12/27/21 8:51 AM) Temperature [96.8-100.4 DegF] 98.4 DegF (12/27/21 8:51 AM) Blood pressure sites Arm, left (12/27/21 8:51 AM) Temperature Route Temporal (12/27/21 8:51 AM) Weight Obtained Via Standing scale (12/27/21 8:51 AM) Social History Social History Type Response Smoking Status Never smoker entered on: 10/16/17 Sex
--- OUTSIDE RECORDS SUMMARY | 2022-10-31 20:15 | XMS_ITS | Continuity of Care Document ---
:1960 Author Organization [facility] Adult Address [address] [place] [address]- Care Team Providers Name Role Phone Joaquim RIGGS, Gina Wooten Primary Care Physician Encounter [facility] Date(s): 12/01/21 - 12/31/21 [facility] Adult [address] [place] [address]- Allergies, Adverse Reactions, Alerts Substance Reaction Severity [...] FluLaval (oldterm) 09/18/12 Given 1Result Comment: lot [id number] exp 06-19-2021 [id number] Comment: [07/09/2018] [id number] Note: [id number] Comment: [07/14/2016] [facility] amlodipine-benazepril 5 mg-20 mg oral capsule 1 capsule, By Mouth, Daily, # 30 capsule, 5 Refills, Maintenance, 12/19/21 9:02:00 EDT, [facility] upon patient [...]
--- OUTSIDE RECORDS SUMMARY | 2022-10-31 20:15 | XMS_ITS | Continuity of Care Document ---
:1960 Author Organization [facility] Adult Address [address] [place] [address]- Care Team Providers Name Role Phone Joaquim RIGGS, Gina Wooten Primary Care Physician [place] [facility] [place] 12/16/21 - 12/23/21 [facility] Adult [address] [place] [address]- Attending Physician: Shoaib Ashby MD Referring Physician: Piedad ARREOLA, Rafita Reyes Allergies, Adverse Reactions, Alerts Substance Reaction Severity [...] FluLaval (oldterm) 09/18/12 Given 1Result Comment: lot [id number] exp 06-19-2021 [id number] Comment: [07/09/2018] [id number] Note: [id number] Comment: [07/14/2016] [facility] amlodipine-benazepril 5 mg-20 mg oral capsule 1 capsule, By Mouth, Daily, # 30 capsule, 5 Refills, Maintenance, 12/19/21 9:02:00 EDT, Capsule, [facility], Partial fill upon patient request [...]
--- OUTSIDE RECORDS SUMMARY | 2022-10-31 20:15 | XMS_ITS | Continuity of Care Document ---
:1960 Author Organization [facility] Adult Address [address] [place] [address]- Care Team Providers Name Role Phone Rafita Herbert MD Primary Care Physician Encounter [facility] [place] Date(s): 06/03/22 - 10/01/22 [facility] Adult [address] [place] [address]- Attending Physician: Gina March NP Referring Physician: [...] FluLaval (oldterm) 09/18/12 Given 1Result Comment: lot [id number] exp 06-19-2021 [id number] Comment: [07/09/2018] [id number] Note: [id number] Comment: [07/14/2016] [facility] amlodipine-benazepril 5 mg-20 [...] Team PersonnelName: Piedad ARREOLA, Rafita Reyes Position: [facility] Primary Care Physician Member Role: PCP Address: Address: [address] [place] [address]- Care Team Related PersonsName: NO, NONE Name: CHAPIN GERONIMO Address: home [id number] [place] [address] MD [place] [id number] Name: BEAN CHANEL Name: TRISHA CHANEL Address: home [address] [place] [address]
--- OUTSIDE RECORDS SUMMARY | 2022-10-31 20:15 | XMS_ITS | Continuity of Care Document ---
:1960 Author Organization [facility] Adult Address [address] [place] [address]- Care Team Providers Name Role Phone Joaquim RIGGS, Gina Wooten Primary Care Physician Encounter [facility] [place] Date(s): 12/19/21 - 12/26/21 [facility] Adult [address] [place] [address]- Attending Physician: Marlena Curran NP Allergies, Adverse Reactions, Alerts Substance Reaction Severity [...] FluLaval (oldterm) 09/18/12 Given 1Result Comment: lot [id number] exp 06-19-2021 [id number] Comment: [07/09/2018] [id number] Note: [id number] Comment: [07/14/2016] [facility] amlodipine-benazepril 5 mg-20 mg oral capsule 1 capsule, By Mouth, Daily, # 30 capsule, 5 Refills, Maintenance, 12/19/21 9:02:00 EDT, Capsule, [facility], Partial fill upon patient request if the [...] 2017.(Confirmed) 1microscopic being monitored by compression mammogram Vital Signs Most recent to oldest 1 2 3 [Reference Range]: Height 165 cm 165 cm 165 cm (12/19/21 9:07 AM) (12/19/21 9:00 AM) (12/19/21 8:4 9 AM) Weight 53.2 kg (12/19/21 8:49 AM) Oxygen Saturation [94-100 %] 97 % (12/19/21 9:00 AM) Pulse Rate [55-90 bpm] 86 bpm (12/19/21 9:00 AM) Body Mass Index [18.5-24.99] 19.54 (12/19/21 8:49 AM) Blood Pressure [90-138/55-84 mm 150/100 mm Hg 165/100 mm Hg Hg] *H* *H* (12/19/21 9:07 AM) (12/19/21 9:00 AM) Respiratory Rate [16-30 br/min] 20 br/min (12/19/21 9:00 AM) Mode of Delivery (Oxygen) Room air Room air (12/19/21 9:00 AM) (12/19/21 8:49 AM) Blood pressure sites Arm, left Arm, left (12/19/21 9:07 AM) (12/19/21 8:49 AM) Temperature Route Oral (12/19/21 8:49 AM) Weight Obtained Via Standing scale (12/19/21 8:49 AM) Social History Social History Type Response Smoking Status Never smoker entered on: 10/16/17 Sex
--- OUTSIDE RECORDS SUMMARY | 2022-10-31 20:15 | XMS_ITS | Continuity of Care Document ---
:[address] [facility] Adult Address [address] [place] [address]- Care Team Providers Name Role Phone Joaquim RIGGS, Gina Wooten Primary Care Physician Encounter [facility] Date(s): 11/10/21 - 12/10/21 [facility] Adult [address] [place] [address]- Allergies, Adverse Reactions, Alerts Substance Reaction Severity [...] FluLaval (oldterm) 09/18/12 Given 1Result Comment: lot [id number] exp 06-19-2021 [id number] Comment: [07/09/2018] [id number] Note: [id number] Comment: [07/14/2016] [facility] lisinopril 5 mg oral tablet 5 mg, 1, tablet, By Mouth, Daily, # 30 tablet, Refills 0, Maintenance, 11/30/21 7:11:00 EST, Partialfill upon patient request if the prescription is for a schedule II opioid drug. Start Date: 3/9/22 Status: OrderedProlixin DECANOATE Inj = 17 mg, [...]
--- OUTSIDE RECORDS SUMMARY | 2022-10-31 20:15 | XMS_ITS | Continuity of Care Document ---
:1960 Author Organization [facility] Adult Address [address] [place] [address]- Care Team Providers Name Role Phone Joaquim RIGGS, Gina Wooten Primary Care Physician Encounter [facility] [place] Date(s): 11/25/21 - 12/25/21 [facility] Adult [address] [place] [address]- Allergies, Adverse Reactions, Alerts Substance Reaction Severity [...] FluLaval (oldterm) 09/18/12 Given 1Result Comment: lot [id number] exp 06-19-2021 [id number] Comment: [07/09/2018] [id number] Note: [id number] Comment: [07/14/2016] [facility] amlodipine-benazepril 5 mg-20 mg oral capsule 1 capsule, By Mouth, Daily, # 30 capsule, 5 Refills, Maintenance, 12/19/21 9:02:00 EDT, [facility]apsule, [facility], Partial fill upon patient request [...]
--- OUTSIDE RECORDS SUMMARY | 2022-10-31 20:15 | XMS_ITS | Continuity of Care Document ---
:1960 Author Organization [facility] Address [address] [place] [id number]- Care Team Providers Name Role Phone Joaquim RIGGS, Gina Wooten Primary Care Physician Encounter [facility] Date(s): 12/16/21 - 12/16/[address] [address]- Encounter Diagnosis Hypertension (Final) - 12/16/21 Headache (Final) - 12/16/21 Discharge Disposition: A-D/C Home Attending Physician: Piotr Camacho DO Admitting Physician: Piotr Camacho DO Referring Physician: Not on Staff, Referring MD Allergies, Adverse Reactions, Alerts Substance Reaction [...] FluLaval (oldterm) 09/18/12 Given 1Result Comment: lot [id number] exp 06-19-2021 [id number] Comment: [07/09/2018] [id number] Note: [id number] Comment: [07/14/2016] [facility] lisinopril 5 mg [...] 2018.(Confirmed) 1microscopic being monitored by compression mammogram Results Radiology Reports Exam Date Time Procedure Performing Provider Status 12/16/21 7:36 PM Chest 2 Views Frontal and Lat Thiago Wallace; Au th (Verified) Notes:(Chest 2 Views Frontal and Lat) Reason For Exam: uncontrolled HTN;Other: RESULT: Chest 2 Views Frontal and Lat Chest 2 Views Frontal and Lat Hx of Present Illness: went to dentist yesterday and was told her BP was very high. Sent in for [facility] PCP office. Pt has headache and hypertension; Reason: Other:; uncontrolled HTN; Clinical Question(s): Pulmonary Edema COMPARISON: None. FINDINGS: LINES AND TUBES: None. LUNGS AND PLEURA: Clear lungs. Normal pulmonary vascularity. No pleural effusion. No pneumothorax. HEART, MEDIASTINUM AND HINA: Heart is normal in size. Normal upper mediastinal and hilar contour. BONES AND SOFT TISSUES: No acute abnormality. IMPRESSION: No acute abnormality. WSN: [id number] Ordering Physician: Marlena Hancock Dictated By: Irwin Lawson MD Dictated Date/Time: 12/16/21 7:38 pm Reviewed By: Irwin Lawson MD Signed By: Irwin Lawson MD Signed Date/Time: 12/16/21 7:38 pm Transcribed By: CHIVO Transcribed Date/Time: 12/16/21 7:37 pm Vital Signs Most recent to oldest 1 2 3 [Reference Range]: Height 165 cm 165 cm 165 cm (12/16/21 6:40 PM) (12/16/21 5:56 PM) (12/16/21 4:0 5 PM) Oxygen Saturation [94-100 %] 98 % 98 % 98 % (12/16/21 8:25 PM) (12/16/21 6:40 PM) (12/16/21 5:5 6 PM) Pulse Rate [55-90 bpm] 72 bpm 74 bpm 78 bpm (12/16/21 8:25 PM) (12/16/21 6:40 PM) (12/16/21 5:5 6 PM) Blood Pressure [90-138/55-84 mm 190/103 mm Hg 1 183/98 mm Hg 173/103 mm Hg Hg] *H* *H* *H* (12/16/21 8:25 PM) (12/16/21 6:40 PM) (12/16/21 5:5 6 PM) Respiratory Rate [16-30 br/min] 18 br/min 16 br/min 15 br/min (12/16/21 8:25 PM) (12/16/21 6:40 PM) *L* (12/16/21 5:56 PM ) Temperature [96.8-100.4 DegF] 98.4 DegF (12/16/21 4:05 PM) Mode of Delivery (Oxygen) Room air Room air Room a ir (12/16/21 8:25 PM) (12/16/21 5:56 PM) (12/16/21 4:0 5 PM) Blood pressure sites Arm, right (12/16/21 5:56 PM) Temperature Route Oral (12/16/21 4:05 PM) Dry Weight 55 kg 55 kg (12/16/21 6:40 PM) (12/16/21 4:05 PM) 1Result Comment: Doctor ok with d/cing pt with BP Social History Social History Type Response Smoking Status Never smoker entered on: 10/16/17 Sex
--- OUTSIDE RECORDS SUMMARY | 2022-10-31 20:15 | XMS_ITS | Continuity of Care Document ---
:1960 Author Organization [facility] Adult Address [address] [place] [address]- Care Team Providers Name Role Phone Joaquim RIGGS, Gina Wooten Primary Care Physician Encounter [facility] Date(s): 12/16/21 - 01/15/22 [facility] Adult [address] [place] [address]- Allergies, Adverse Reactions, Alerts Substance Reaction Severity [...] FluLaval (oldterm) 09/18/12 Given 1Result Comment: lot [id number] exp 06-19-2021 [id number] Comment: [07/09/2018] [id number] Note: [id number] Comment: [07/14/2016] [facility] amlodipine-benazepril 5 mg-20 mg oral capsule 1 capsule, By Mouth, Daily, # 30 capsule, 5 Refills, Maintenance, 12/19/21 9:02:00 EDT, Capsule, [id number], Partial fill upon patient [...]
--- OUTSIDE RECORDS SUMMARY | 2022-10-31 20:15 | XMS_ITS | Continuity of Care Document ---
:1960 Author Organization [facility] Adult Address [address] [place] [address]- Care Team Providers Name Role Phone Joaquim RIGGS, Gina Wooten Primary Care Physician Encounter [facility] Date(s): 12/27/21 - 01/26/22 [facility] [address] [place] [address]- Attending Physician: AdmtrMindy Allergies, Adverse Reactions, Alerts Substance Reaction Severity [...] FluLaval (oldterm) 09/18/12 Given 1Result Comment: lot [id number] exp 06-19-2021 [id number] Comment: [07/09/2018] [id number] Note: [id number] Comment: [07/14/2016] [facility] amlodipine-benazepril 5 mg-20 mg oral capsule 1 capsule, By Mouth, Daily, # 30 capsule, 5 Refills, Maintenance, 12/19/21 9:02:00 EDT, Capsule, [facility], Partial fill upon patient request if the [...] 2017.(Confirmed) 1microscopic being monitored by compression mammogram Procedures Procedure Date Related Diagnosis Body Site Status Colonoscopy 2013 due 202304/10/14 Co mpleted Social History Social History Type Response Smoking Status Never smoker entered on: 10/16/17 Sex
--- OUTSIDE RECORDS SUMMARY | 2022-10-31 20:15 | XMS_ITS | Continuity of Care Document ---
:1960 Author Organization [facility] Adult Address [address] [place] [address]- Care Team Providers Name Role Phone Joaquim RIGGS, Gina Wooten Primary Care Physician Encounter [facility] Date(s): 12/16/21 - 01/15/22 [facility] [address] [place] [address]- Allergies, Adverse Reactions, Alerts Substance Reaction Severity [...] FluLaval (oldterm) 09/18/12 Given 1Result Comment: lot [id number] exp 06-19-2021 [id number] Comment: [07/09/2018] [id number] Note: [id number] Comment: [07/14/2016] [facility] amlodipine-benazepril 5 mg-20 mg oral capsule 1 capsule, By Mouth, Daily, # 30 capsule, 5 Refills, Maintenance, 12/19/21 9:02:00 EDT, Capsule, [facility], Partial fill upon patient request [...]
--- OUTSIDE RECORDS SUMMARY | 2022-10-31 20:15 | XMS_ITS | Continuity of Care Document ---
:1960 Author Organization [facility] Adult Address [address] [place] [address]- Care Team Providers Name Role Phone Piedad ARREOLA, Rafita Reyes Primary Care Physician Encounter [facility] Date(s): 09/01/22 - 10/01/22 [facility] [address] [place] [address]- Attending Physician: Mindy Sheridan Allergies, Adverse Reactions, Alerts Substance Reaction Severity [...] FluLaval (oldterm) 09/18/12 Given 1Result Comment: lot [id number] exp 06-19-2021 [id number] Comment: [07/09/2018] [id number] Note: [id number] Comment: [07/14/2016] [facility] amlodipine-benazepril 5 mg-20 mg oral capsule 1 capsule, By Mouth, Daily, # 30 capsule, 5 Refills, Maintenance, 12/19/21 9:02:00 EDT, Capsule, [facility], Partial fill upon patient request if the [...] -elective Confirmed Active use of raloxifene since 2017. 1microscopic being monitored by compression mammogram Procedures Procedure Date Related Diagnosis Body Site Status Colonoscopy 2013 due 202304/10/14 Co mpleted Social History Social History Type Response Smoking Status Never smoker entered on: 10/16/17 Sex Note Edna Arnold: PERFORM Event Display: Radiology Results Scanned Authored Date: [id number] Tayler Rocha: PERFORM Event Display: Radiology Results Scanned Authored Date: [id number] Sugar Pisano: PERFORM Event Display: Laboratory Results Scanned Authored Date: [id number] Sugar Pisano: PERFORM Event Display: Radiology Results Scanned Authored Date: [id number] Patient Care team information Care Team PersonnelName: Piedad ARREOLA, Rafita Reyes Position: S Primary Care Physician Member Role: PCP Address: Address: [address] [place] [address]- Care Team Related PersonsName: NO, NONE Name: CHAPIN GERONIMO Address: home [id number] [place] [address] MD JONI [id number] Name: BEAN CHANEL Name: TRISHA CHANEL Address: home [address] [place] [address]
[2022-10-31 21:38] VITALS: RESP 18
--- NOTE | 2022-10-31 22:21 | PC.NURSE ---
Vaishali Guillaume was admitted to at time from [facility] on a 12b for treatment of Schizophrenia. Precipitants of admission include being found wandering by EMS in the community barefoot wearing only a bathrobe. She presented with delusional, disorganized, and paranoid thinking related to electronics, the [place] government, and the [place]. Patient believes her brother was killed by the [place] army. She has a psychiatric history significant for schizophrenia and uncontrolled psychosis. Patient was admitted to [facility] on a medical floor after having ?hypertension urgency? with a systolic over 220. Received 2 doses of IV Labetalol. Patient has since been refusing vital signs. No acute distress noted or reported.? Patient is disoriented x4. Patient reported that her name is ?Emily Burgos? with a Date of of 05/17/1976. Patient refused to wear a hospital bracelet d/t it ?not being her name per pt report. Patient declined to participate in the admission assessment, however remained calm and polite. Completed through crisis evaluation. Has a history of inpatient admissions, M5 in October of 2021.. Patient is flat and appears guarded in responses. Patient presents with a paranoid and guarded edge. Unable to assess mental status due to the patient refusing to meet with this RN. Per notes from a previous hospital patient had poor sleep. Patient appears disheveled, matted hair. Patient declined to answer when asked if she was experiencing any auditory or visual hallucinations. Denied SI/HI. Appears to be internally preoccupied. No acute complaints reported at this time. 15 minute safety checks initiated. Tox screen negative Per notes, [facility] provider Gurpreet Oliva, last reported Prolixin deconate 12.5 mg was administered 05/15/22, the patient has likely been non medication compliant for 4 months. Patient Received IM Fluphenazine Decanoate 12.5 mg on 10/24/2022 with next dose planned to be 25 mg IM Q14? days, to be given on 11/07/2022 per jason order. Per notes and conversation with guardian and brother pt had a failed trial with clozapine. Guardian recommended disintegrating tabs as well as patients who have a history of cheeking.? Kong Guillaume (guardian and brother) [phone]. Jason order. .
--- NOTE | 2022-11-01 12:34 | P.HPPS_ITS ---
HPI Date of Service: 11/01/22 Chief Complaint: Psychosis Sources of Information: patient interviewed, chart reviewed and crisis/core team assessment reviewed HPI Subjective Notes: Ann Warning (given and shows understanding) and Section 12B Narrative: Ms. Guillaume is a 62 year-old woman with hx of schizophrenia. Pt was found walking on the streets wearing only bath rope, underdressed for winter weather and with paranoid delusions of [employer] following her and food being poisoned. Pt was transported to [facility] ED where she was found to have a hypertensive crisis and was admitted to medical floor for further management. While at [facility], pt prese nted as guarded, very paranoid, not eating stating food was poisoned, refusing management of HTN as she reported water in the hospital had cocaine. Her utox in the ED was negative. Ms. Guillaume has geronimo's order (due for renewal on 11/03/22 and final expiration date if not renewed is 11/10/2022) that includes prolixin (oral/PETERSON/IM), haldol and risperidone. She apparently was doing well after discharged from about one year ago on prolixin 25mg IM [id number]. Pt stopped taking prolixin PETERSON about 4 months ago. While at [facility], pt was given prolixin 12.5mg IM on 10/24, next decanoate IM due on 11/07/2022. On the unit, pt presents a mute, nodding head to answer most questions. She continues to present as paranoid. She is not eating and when asked if food is poisoned, she nods. She was up most night last night. She declined VS. She is disheveled, in bed. Limited evaluation as pt at this time mostly non verbal. Of note, this specifications writer saw pt at [facility] and she was slightly more talkative about extend of paranoid delusions of food being poisoned and being followed by [facility] and other militias. Past Psychiatric History: many hospitalizations for schizophrenia with paranoid delusions. Has only responded to prolixin in past acording to her brother. she had had terrible side effect from other meds in the past. 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 Substance History: none Trauma History: none known Meds/Allergies Meds Home Medications Medication Instructions Recorded Confirmed Type amlodipine 5 mg-benazepril 20 mg cap PO 01/31/22 History capsule Allergies Allergies Allergy/AdvReac Type Severity Reaction Status Date / Time cashew nut Allergy Severe ANAPHYLAXIS Verified 01/31/22 11:11 peanut [Peanut] Allergy Severe ANAPHALAXIS Verified 01/31/22 11:11 Mental Status Exam Mental Status Exam Narrative: Appearance: wearing bath rope, in bed, minimal eye contact, in NAD Behavior: minimally engaging, not talking, mostly nodding to questions Psychomotor: some retardation noted TP: unable to assess as mostly mute Speech: mute at this point Delusions: paranoid delusions food being poisoned/persecutory delusions of [employer] going after her SI: nods, no AH/VH: appears internally preoccupied Insight/judgment: impaired x 2. Assessment & Plan Assessment & Plan (1) Schizophrenia: Status: Chronic Code(s): F20.9 - Schizophrenia, unspecified Plan Ms. Guillaume is a 62 year-old woman with hx of schizophrenia. She was last psychiatrically admitted to on 10/2021 and discharged on prolixin 25mg IM [id number]. It appears that pt stopped prolixin about 4 months and gradually has been decompensating, presenting more paranoid and suspicious. She was found wondering on streets wearing mostly just bath rope, presented as paranoid. She was brought to [facility]- found to have hypertensive crisis, elevated TSH, refusing to eat because she believes food is poisoned, declining to have HTN treatment stating that there was cocaine in the water of the hospital. Pt given prolixin 12.5mg IM on 10/24/2022, next prolixin dose due on 11/07/22- higher dose of 25mg [id number]. This specifications writer saw pt while at [facility]. She appears now slightly more catatonic features including mutism, negativism along with underlying paranoid and persecutor delusions. PLAN 1. Admit on M3, Sect 12b, 15 minutes checks 2. Next prolixin 25mg IM [id number] due on 11/07/22- supposed to supplement with oral prolixin as there is 2 week delay onset. Back up haldol if refuses prolixin but pt with s/s of catatonia, may give ativan 3. Obtain collateral information from Kong- brother and guardian [phone]. 4. After care planning. Patient educated on: diagnosis and medication risk/benefits Reason for continued inpatient stay Substantial Risk for: harm to self and inability to function Statement Statement: I have reviewed the history and physical and performed a pertinent examination on my patient. No changes have occurred unless specified. If the History and Physical was not performed prior to admission, the Hospitalist's service will be consulted for completing the admission physical. Time Spent With Patient Time: Total time managing care of this patient today ____ minutes.
--- NOTE | 2022-11-01 16:44 | PM.EVENT ---
Event Note Date of Service: 11/01/22 Event Note: Attempted to see patient with M3 staff. Patient adamantly for refused exam it would not engage this policy writer typist. Please read consult when patient more amenable to exam Time Spent With Patient Time: Total time managing care of this patient today ____ minutes.
[2022-11-02] MEDS: fluPHENAZine HCl 5 MG TABLET PO ×2 (09:58→22:42)
--- NOTE | 2022-11-02 11:24 | PC.NURSE ---
On arrival to the unit this morning I noted a plastic tote containing yellow fluid with odor of urine. It was a large amount of fluid, likely urine mixed with water. Patient would not answer question about what the tote contained. Patient was resistant to allowing nurse to remove the tote. She made an x with her fingers and then made a cutting the throat motion with her hands. When I brought another staff with me patient did not resist the removal of the tote. Vaishali did take her prescribed prolixin this morning.
--- NOTE | 2022-11-02 13:29 | HO.PSYCHPN ---
Subjective Subjective Date of Service: 11/02/22 Reason For Visit: Psychosis Subjective Notes: Ann Warning and Section 12B Interim History: Pt walking in [place]. She makes gestures as she can't speak. She mostly nods when questions asked. She nods yes when asked if food is poisoned. She declined taking a shower today. She also declined VS. Pt has untouched tray from this morning. She has not eaten anything since admission. She even refuses fluids when offered. She nods no when asked about SI or HI. Medication Compliance: Yes (cecelia jason, not taking medical meds.) Mental Status Exam Mental Status Exam Narrative: Appearance: wearing bath rope, in bed, minimal eye contact, in NAD Behavior: minimally engaging, not talking, mostly nodding to questions Psychomotor: some retardation noted TP: unable to assess as mostly mute Speech: mute at this point Delusions: paranoid delusions food being poisoned/persecutory delusions of [place] going after her SI: nods, no AH/VH: appears internally preoccupied Insight/judgment: impaired x 2. Medications Medications Current Medications Acetaminophen (Acetaminophen 325 Mg Tablet) 650 mg PO Q6H PRN PRN Reason: Headache/Pain Mild Scale (1-3) Al Hydroxide/Mg Hydroxide (Magnesium Hydrox/Alum Hydrox 30 Ml Oral.Susp) 30 ml PO Q6H PRN PRN Reason: Heartburn/Nausea Amlodipine Besylate (Amlodipine Besylate 5 Mg Tablet) 5 mg PO DAILY [facility]; Protocol Fluphenazine Decanoate (Fluphenazine Decanoate 25 Mg/Ml 5 Ml Vial) 25 mg IM Q14D@0900 [facility] Fluphenazine HCl (Fluphenazine Hcl 5 Mg Tablet) 5 mg PO BID [facility] Last Admin: 11/02/22 09:58 Dose: 5 mg Haloperidol Lactate (Haloperidol Lactate 5 Mg/Ml Vial) 5 mg IM BID PRN PRN Reason: if refuses oral prolixin cecelia alves Hydroxyzine HCl (Hydroxyzine Hcl 25 Mg Tablet) 25 mg PO Q6H PRN PRN Reason: Anxiety Magnesium Hydroxide (Milk Of Magnesia 30 Ml Oral.Susp) 30 ml PO DAILY PRN PRN Reason: Constipation Trazodone HCl (Trazodone Hcl 50 Mg Tablet) 50 mg PO BEDTIME MRX1 PRN PRN Reason: Insomnia Allergies Allergies Allergy/AdvReac Type Severity Reaction Status Date / Time cashew nut Allergy Severe ANAPHYLAXIS Verified 01/31/22 11:11 peanut [Peanut] Allergy Severe ANAPHALAXIS Verified 01/31/22 11:11 Assessment & Plan Assessment & Plan (1) Schizophrenia: Status: Chronic Code(s): F20.9 - Schizophrenia, unspecified Plan Ms. Guillaume is a 62 year-old woman with hx of schizophrenia. She was last psychiatrically admitted to on 10/2021 and discharged on prolixin 25mg IM [id number]. It appears that pt stopped prolixin about 4 months and gradually has been decompensating, presenting more paranoid and suspicious. She was found wondering on streets wearing mostly just bath rope, presented as paranoid. She was brought to [facility]- found to have hypertensive crisis, elevated TSH, refusing to eat because she believes food is poisoned, declining to have HTN treatment stating that there was cocaine in the water of the hospital. Pt given prolixin 12.5mg IM on 10/24/2022, next prolixin dose due on 11/07/22- higher dose of 25mg [id number]. This conventional underwriter saw pt while at [facility]. She appears now slightly more catatonic features including mutism, negativism along with underlying paranoid and persecutor delusions. PLAN 1. Admit on M3, Sect 12b, 15 minutes checks 2. Next prolixin 25mg IM [id number] due on 11/07/22- supposed to supplement with oral prolixin as there is 2 week delay onset. Back up haldol if refuses prolixin but pt with s/s of catatonia, may give ativan 3. Obtain collateral information from Kong- brother and guardian [phone]. 4. After care planning. 11/02- continue current medication. on sect 12, will file. Reason for contiued inpatient stay Substantial Risk for: inability to function Time Spent With Patient Time: Total time managing care of this patient today ____ minutes.
[2022-11-02] MEDS: LORazepam 1 MG TABLET PO (22:42)
[2022-11-02 22:46] VITALS: RESP 16
[2022-11-03] MEDS: fluPHENAZine HCl 5 MG TABLET PO ×2 (08:50→20:47)
--- NOTE | 2022-11-03 12:35 | HO.PSYCHPN ---
Subjective Subjective Date of Service: 11/03/22 Reason For Visit: Psychosis Subjective Notes: Section 7 Interim History: Pt walking in [place]. She is talking today and asks this engineering writer if she can be discharged today. She states she will take medications. Pt carrying toilet paper, she has urinated in laundry basket, cups that has placed in her room. She reports that liquid although coming out of her urethra is not urine but acid to protect others and herself. She denies SI/HI. Suspicious, minimally engaging with peers or staff. Brother- who is guardian was updated. Filing for section 7 completed today. Mental Status Exam Mental Status Exam Narrative: Appearance: wearing bath rope, in bed, minimal eye contact, in NAD Behavior: minimally engaging, not talking, mostly nodding to questions Psychomotor: some retardation noted TP: unable to assess as mostly mute Speech: mute at this point Delusions: paranoid delusions food being poisoned/persecutory delusions of BEHZAD going after her SI: nods, no AH/VH: appears internally preoccupied Insight/judgment: impaired x 2. Medications Medications Current Medications Acetaminophen (Acetaminophen 325 Mg Tablet) 650 mg PO Q6H PRN PRN Reason: Headache/Pain Mild Scale (1-3) Al Hydroxide/Mg Hydroxide (Magnesium Hydrox/Alum Hydrox 30 Ml Oral.Susp) 30 ml PO Q6H PRN PRN Reason: Heartburn/Nausea Amlodipine Besylate (Amlodipine Besylate 5 Mg Tablet) 5 mg PO DAILY [facility]; Protocol Last Admin: 11/03/22 10:31 Dose: Not Given Fluphenazine Decanoate (Fluphenazine Decanoate 25 Mg/Ml 5 Ml Vial) 25 mg IM Q14D@0900 [facility] Fluphenazine HCl (Fluphenazine Hcl 5 Mg Tablet) 5 mg PO BID [facility] Last Admin: 11/03/22 20:47 Dose: 5 mg Haloperidol Lactate (Haloperidol Lactate 5 Mg/Ml Vial) 5 mg IM BID PRN PRN Reason: if refuses oral prolixin per joselyn Hydroxyzine HCl (Hydroxyzine Hcl 25 Mg Tablet) 25 mg PO Q6H PRN PRN Reason: Anxiety Lorazepam (Lorazepam 1 Mg Tablet) 1 mg PO BID [facility] Last Admin: 11/03/22 20:47 Dose: Not Given Magnesium Hydroxide (Milk Of Magnesia 30 Ml Oral.Susp) 30 ml PO DAILY PRN PRN Reason: Constipation Trazodone HCl (Trazodone Hcl 50 Mg Tablet) 50 mg PO BEDTIME MRX1 PRN PRN Reason: Insomnia Allergies Allergies Allergy/AdvReac Type Severity Reaction Status Date / Time cashew nut Allergy Severe ANAPHYLAXIS Verified 01/31/22 11:11 peanut [Peanut] Allergy Severe ANAPHALAXIS Verified 01/31/22 11:11 Assessment & Plan Assessment & Plan (1) Schizophrenia: Status: Chronic Code(s): F20.9 - Schizophrenia, unspecified Plan Ms. Guillaume is a 62 year-old woman with hx of schizophrenia. She was last psychiatrically admitted to on 10/2021 and discharged on prolixin 25mg IM [id number]. It appears that pt stopped prolixin about 4 months and gradually has been decompensating, presenting more paranoid and suspicious. She was found wondering on streets wearing mostly just bath rope, presented as paranoid. She was brought to [facility]- found to have hypertensive crisis, elevated TSH, refusing to eat because she believes food is poisoned, declining to have HTN treatment stating that there was cocaine in the water of the hospital. Pt given prolixin 12.5mg IM on 10/24/2022, next prolixin dose due on 11/07/22- higher dose of 25mg [id number]. This engineering writer saw pt while at [facility]. She appears now slightly more catatonic features including mutism, negativism along with underlying paranoid and persecutor delusions. PLAN 1. Admit on M3, Sect 12b, 15 minutes checks 2. Next prolixin 25mg IM [id number] due on 11/07/22- supposed to supplement with oral prolixin as there is 2 week delay onset. Back up haldol if refuses prolixin but pt with s/s of catatonia, may give ativan 3. Obtain collateral information from [place]- brother and guardian [phone]. 4. After care planning. 11/02- continue current medication. on sect 12, will file. 11/03 petition for sec 8 filed, pt now on section 7. continue current medication per joselyn's pt scheduled to received prolixin 25mg IM on 11/07/2022. Reason for contiued inpatient stay Substantial Risk for: inability to function Time Spent With Patient Time: Total time managing care of this patient today ____ minutes.
--- NOTE | 2022-11-03 14:21 | PC.NURSE ---
This morning it was noted that patient had several cups with yellow fluid inside in her room. When I asked her about them she said they did not contain urine but contained acid. She admitted that the acid came from her urethra. She states the acid must be kept since it protects from the robots. Patient states there are robots which are dangerous to staff but she has protected us with acid. I informed pt that keeping this fluid would be unsafe for the unit and flushed it down the toilet. Minutes later she took her roommate's shoes, put them in the trash container and urinated on them. When asked why she did this patient stated, those things are poison. I am protecting her. Vaishali was moved to the ante room since no other private room situation was available to her. Nataliya Maynard NP and Denilson Guerrier charge nurse informed.
[2022-11-04] MEDS: fluPHENAZine HCl 5 MG TABLET PO ×2 (08:45→20:54)
--- NOTE | 2022-11-04 12:57 | HO.PSYCHPN ---
Subjective Subjective Date of Service: 11/04/22 Reason For Visit: Psychosis Subjective Notes: Section 7 and Other (jason order) Interim History: Pt still asking if she can be discharged today. She spending time in community room; She slept last night; urinated on roomates belongings to protect staff as she does not trust her roomate; She denies SI/HI. Suspicious, minimally engaging with peers or staff. Medication Compliance: Yes Side effects from medications: No Attending Groups: No Review of Systems Acute medical concerns: No Mental Status Exam Mental Status Exam Narrative: Appearance: in community room; adls fair;minimal eye contact, in NAD Behavior: minimally engaging, not talking, mostly nodding to questions Psychomotor: some retardation noted TP: unable to assess as mostly mute Speech: mute at this point Delusions: paranoid delusions food being poisoned/persecutory delusions of BEHZAD going after her SI: nods, no AH/VH: appears internally preoccupied Insight/judgment: impaired x 2. Medications Medications Current Medications Acetaminophen (Acetaminophen 325 Mg Tablet) 650 mg PO Q6H PRN PRN Reason: Headache/Pain Mild Scale (1-3) Al Hydroxide/Mg Hydroxide (Magnesium Hydrox/Alum Hydrox 30 Ml Oral.Susp) 30 ml PO Q6H PRN PRN Reason: Heartburn/Nausea Amlodipine Besylate (Amlodipine Besylate 5 Mg Tablet) 5 mg PO DAILY [facility]; Protocol Last Admin: 11/04/22 08:45 Dose: Not Given Fluphenazine Decanoate (Fluphenazine Decanoate 25 Mg/Ml 5 Ml Vial) 25 mg IM Q14D@0900 [facility] Fluphenazine HCl (Fluphenazine Hcl 5 Mg Tablet) 5 mg PO BID [facility] Last Admin: 11/04/22 08:45 Dose: 5 mg Haloperidol Lactate (Haloperidol Lactate 5 Mg/Ml Vial) 5 mg IM BID PRN PRN Reason: if refuses oral prolixin per joselyn Hydroxyzine HCl (Hydroxyzine Hcl 25 Mg Tablet) 25 mg PO Q6H PRN PRN Reason: Anxiety Lorazepam (Lorazepam 1 Mg Tablet) 1 mg PO BID [facility] Last Admin: 11/04/22 08:45 Dose: Not Given Magnesium Hydroxide (Milk Of Magnesia 30 Ml Oral.Susp) 30 ml PO DAILY PRN PRN Reason: Constipation Trazodone HCl (Trazodone Hcl 50 Mg Tablet) 50 mg PO BEDTIME MRX1 PRN PRN Reason: Insomnia Allergies Allergies Allergy/AdvReac Type Severity Reaction Status Date / Time cashew nut Allergy Severe ANAPHYLAXIS Verified 01/31/22 11:11 peanut [Peanut] Allergy Severe ANAPHALAXIS Verified 01/31/22 11:11 Assessment & Plan Assessment & Plan (1) Schizophrenia: Status: Chronic Code(s): F20.9 - Schizophrenia, unspecified Plan Ms. Guillaume is a 62 year-old woman with hx of schizophrenia. She was last psychiatrically admitted to on 10/2021 and discharged on prolixin 25mg IM [id number]. It appears that pt stopped prolixin about 4 months and gradually has been decompensating, presenting more paranoid and suspicious. She was found wondering on streets wearing mostly just bath rope, presented as paranoid. She was brought to [facility] [place]- found to have hypertensive crisis, elevated TSH, refusing to eat because she believes food is poisoned, declining to have HTN treatment stating that there was cocaine in the water of the hospital. Pt given prolixin 12.5mg IM on 10/24/2022, next prolixin dose due on 11/07/22- higher dose of 25mg [id number]. This newspaper writer saw pt while at [facility] [place]. She appears now slightly more catatonic features including mutism, negativism along with underlying paranoid and persecutor delusions. PLAN 1. Admit on M3, Sect 12b, 15 minutes checks 2. Next prolixin 25mg IM [id number] due on 11/07/22- supposed to supplement with oral prolixin as there is 2 week delay onset. Back up haldol if refuses prolixin but pt with s/s of catatonia, may give ativan 3. Obtain collateral information from [place]- brother and guardian [phone]. 4. After care planning. 11/02- continue current medication. on sect 12, will file. 11/03 petition for sec 8 filed, pt now on section 7. continue current medication per joselyn's pt scheduled to received prolixin 25mg IM on 11/07/2022. 11/04 contnue current treatment plan 5 min checks Informed Consent: does not understand Reason for contiued inpatient stay Substantial Risk for: harm to self, harm to others, inability to function and rapid decompensation Time Spent With Patient Time: Total time managing care of this patient today ___30_ minutes.
[2022-11-05] MEDS: fluPHENAZine HCl 5 MG TABLET PO ×2 (09:07→22:39)
--- NOTE | 2022-11-05 10:07 | HO.PSYCHPN ---
Subjective Subjective Date of Service: 11/05/22 Reason For Visit: Psychosis Subjective Notes: Conditional Voluntary Interim History: Pt still asking if she can be discharged today. took prolixin but not other meds; She slept last night; She denies SI/HI. Suspicious, minimally engaging with peers or staff. using toilet appropriately today Medication Compliance: Intermittent Side effects from medications: No Review of Systems Acute medical concerns: No Medical Review of Systems: unchanged Mental Status Exam Mental Status Exam Narrative: Appearance: minimal eye contact, in NAD Behavior: minimally engaging, not talking, mostly nodding to questions Psychomotor: some retardation noted TP: unable to assess as mostly mute Speech:very little production Delusions: paranoid delusions food being poisoned/persecutory delusions of BEHZAD going after her SI: nods, no AH/VH: appears internally preoccupied Insight/judgment: impaired x 2. Medications Medications Current Medications Acetaminophen (Acetaminophen 325 Mg Tablet) 650 mg PO Q6H PRN PRN Reason: Headache/Pain Mild Scale (1-3) Al Hydroxide/Mg Hydroxide (Magnesium Hydrox/Alum Hydrox 30 Ml Oral.Susp) 30 ml PO Q6H PRN PRN Reason: Heartburn/Nausea Amlodipine Besylate (Amlodipine Besylate 5 Mg Tablet) 5 mg PO DAILY [facility]; Protocol Last Admin: 11/04/22 08:45 Dose: Not Given Fluphenazine Decanoate (Fluphenazine Decanoate 25 Mg/Ml 5 Ml Vial) 25 mg IM Q14D@0900 [facility] Fluphenazine HCl (Fluphenazine Hcl 5 Mg Tablet) 5 mg PO BID [facility] Last Admin: 11/05/22 09:07 Dose: 5 mg Haloperidol Lactate (Haloperidol Lactate 5 Mg/Ml Vial) 5 mg IM BID PRN PRN Reason: if refuses oral prolixin per joselyn Hydroxyzine HCl (Hydroxyzine Hcl 25 Mg Tablet) 25 mg PO Q6H PRN PRN Reason: Anxiety Lorazepam (Lorazepam 1 Mg Tablet) 1 mg PO BID [facility] Last Admin: 11/04/22 22:23 Dose: Not Given Magnesium Hydroxide (Milk Of Magnesia 30 Ml Oral.Susp) 30 ml PO DAILY PRN PRN Reason: Constipation Trazodone HCl (Trazodone Hcl 50 Mg Tablet) 50 mg PO BEDTIME MRX1 PRN PRN Reason: Insomnia Allergies Allergies Allergy/AdvReac Type Severity Reaction Status Date / Time cashew nut Allergy Severe ANAPHYLAXIS Verified 01/31/22 11:11 peanut [Peanut] Allergy Severe ANAPHALAXIS Verified 01/31/22 11:11 Assessment & Plan Assessment & Plan (1) Schizophrenia: Status: Chronic Code(s): F20.9 - Schizophrenia, unspecified Plan Ms. Guillaume is a 62 year-old woman with hx of schizophrenia. She was last psychiatrically admitted to on 10/2021 and discharged on prolixin 25mg IM [id number]. It appears that pt stopped prolixin about 4 months and gradually has been decompensating, presenting more paranoid and suspicious. She was found wondering on streets wearing mostly just bath rope, presented as paranoid. She was brought to [facility]- found to have hypertensive crisis, elevated TSH, refusing to eat because she believes food is poisoned, declining to have HTN treatment stating that there was cocaine in the water of the hospital. Pt given prolixin 12.5mg IM on 10/24/2022, next prolixin dose due on 11/07/22- higher dose of 25mg [id number]. This expert medical writer saw pt while at [facility]. She appears now slightly more catatonic features including mutism, negativism along with underlying paranoid and persecutor delusions. PLAN 1. Admit on M3, Sect 12b, 15 minutes checks 2. Next prolixin 25mg IM [id number] due on 11/07/22- supposed to supplement with oral prolixin as there is 2 week delay onset. Back up haldol if refuses prolixin but pt with s/s of catatonia, may give ativan 3. Obtain collateral information from [place]- brother and guardian [phone]. 4. After care planning. 11/02- continue current medication. on sect 12, will file. 11/03 petition for sec 8 filed, pt now on section 7. continue current medication per joselyn's pt scheduled to received prolixin 25mg IM on 11/07/2022. 11/04 contnue current treatment plan 5 min checks 11/05 continue current treatment plan Reason for contiued inpatient stay Substantial Risk for: harm to self, inability to function and rapid decompensation Time Spent With Patient Time: Total time managing care of this patient today ____ minutes.
[2022-11-05 16:40] VITALS: RESP 16
[2022-11-06] MEDS: fluPHENAZine HCl 5 MG TABLET PO ×2 (09:23→21:34)
[2022-11-06 10:00] VITALS: RESP 16
--- NOTE | 2022-11-06 10:16 | PC.NURSE ---
Pt refused vital signs, Ativan and Norvasc. However she did take Prolixin
[2022-11-06 13:02] VITALS: BP 130/88
--- NOTE | 2022-11-06 13:03 | PC.NURSE ---
Vaishali came up to nurses desk, and requested Jocelyne to take her BP . She then looked at me and said not her when Jocelyne asked what are your concerns with your BP , Pt responded by saying they've been putting cocaine in my water' Pt would only allow manual which was 130/88.
--- NOTE | 2022-11-06 13:22 | P.PNPSI_ITS ---
Subjective Subjective Date of Service: 11/06/22 Reason For Visit: Psychosis Subjective Notes: Section 7 Interim History: Pt initially asking for discharge today. She reports she has been complaint with medications. Pt reports she is not letting RN check BP because water here is also contaminated with cocaine. She reports most medications including amlodipine and lorazepam contain amyloid plaques that cause Alzheimer's disease. She reports to they are killing people this way, including you. Pt reports she is able to read my mind and knows that I also take BP medications. She reports that I am not who I say I am and I am not Nataliya but instead part of [employer]. She reports there is a satellite monitoring this hospital that is telling her as we speak that I am not who I say I am. Pt reports that I will as soon as I cross the door in her room or the door outside of the unit. Pt presents as very disheveled, has not showered since admission and probably longer than that. Some mild resting tremor noted. Pt declines taking any other medications for EPS. Mental Status Exam Mental Status Exam Narrative: Appearance: minimal eye contact, in NAD Behavior: minimally engaging, not talking, mostly nodding to questions Psychomotor: some retardation noted TP: unable to assess as mostly mute Speech:very little production Delusions: paranoid delusions food being poisoned/persecutory delusions of BEHZAD going after her SI: nods, no AH/VH: appears internally preoccupied Insight/judgment: impaired x 2. Diagnostics Vital Signs (24Hr): Vital Signs - 24 hr 11/05/22 16:40 11/06/22 10:00 11/06/22 13:02 Respiratory Rate 16 16 Blood Pressure 130/88 Medications Medications Current Medications Acetaminophen (Acetaminophen 325 Mg Tablet) 650 mg PO Q6H PRN PRN Reason: Headache/Pain Mild Scale (1-3) Al Hydroxide/Mg Hydroxide (Magnesium Hydrox/Alum Hydrox 30 Ml Oral.Susp) 30 ml PO Q6H PRN PRN Reason: Heartburn/Nausea Amlodipine Besylate (Amlodipine Besylate 5 Mg Tablet) 5 mg PO DAILY [facility]; Protocol Last Admin: 11/06/22 09:25 Dose: Not Given Fluphenazine Decanoate (Fluphenazine Decanoate 25 Mg/Ml 5 Ml Vial) 25 mg IM Q14D@0900 [facility] Fluphenazine HCl (Fluphenazine Hcl 5 Mg Tablet) 5 mg PO BID [facility] Last Admin: 11/06/22 09:23 Dose: 5 mg Haloperidol Lactate (Haloperidol Lactate 5 Mg/Ml Vial) 5 mg IM BID PRN PRN Reason: if refuses oral prolixin per joselyn Hydroxyzine HCl (Hydroxyzine Hcl 25 Mg Tablet) 25 mg PO Q6H PRN PRN Reason: Anxiety Lorazepam (Lorazepam 1 Mg Tablet) 1 mg PO BID [facility] Last Admin: 11/06/22 09:25 Dose: Not Given Magnesium Hydroxide (Milk Of Magnesia 30 Ml Oral.Susp) 30 ml PO DAILY PRN PRN Reason: Constipation Trazodone HCl (Trazodone Hcl 50 Mg Tablet) 50 mg PO BEDTIME MRX1 PRN PRN Reason: Insomnia Allergies Allergies Allergy/AdvReac Type Severity Reaction Status Date / Time cashew nut Allergy Severe ANAPHYLAXIS Verified 01/31/22 11:11 peanut [Peanut] Allergy Severe ANAPHALAXIS Verified 01/31/22 11:11 Assessment & Plan Assessment & Plan (1) Schizophrenia: Status: Chronic Code(s): F20.9 - Schizophrenia, unspecified Plan Ms. Guillaume is a 62 year-old woman with hx of schizophrenia. She was last psychiatrically admitted to on 10/2021 and discharged on prolixin 25mg IM [id number]. It appears that pt stopped prolixin about 4 months and gradually has been decompensating, presenting more paranoid and suspicious. She was found wondering on streets wearing mostly just bath rope, presented as paranoid. She was brought to [facility]- found to have hypertensive crisis, elevated TSH, refusing to eat because she believes food is poisoned, declining to have HTN treatment stating that there was cocaine in the water of the hospital. Pt given prolixin 12.5mg IM on 10/24/2022, next prolixin dose due on 11/07/22- higher dose of 25mg [id number]. This blurb writer saw pt while at [facility]. She appears now slightly more catatonic features including mutism, negativism along with underlying paranoid and persecutor delusions. PLAN 1. Admit on M3, Sect 12b, 15 minutes checks 2. Next prolixin 25mg IM [id number] due on 11/07/22- supposed to supplement with oral prolixin as there is 2 week delay onset. Back up haldol if refuses prolixin but pt with s/s of catatonia, may give ativan 3. Obtain collateral information from [place]- brother and guardian [phone]. 4. After care planning. 11/02- continue current medication. on sect 12, will file. 11/03 petition for sec 8 filed, pt now on section 7. continue current medication per joselyn's pt scheduled to received prolixin 25mg IM on 11/07/2022. 11/04 contnue current treatment plan 5 min checks 11/05 continue current treatment plan 11/06 continue current tx. Next prolixin Dec 25mg IM due tomorrow, will d/c oral prolixin by then. Patient educated on: diagnosis Guardian/Caregiver educated on: diagnosis Informed Consent: understands Reason for contiued inpatient stay Substantial Risk for: inability to function Time Spent With Patient Time: Total time managing care of this patient today ____ minutes.
[2022-11-07 06:00] VITALS: RESP 16
[2022-11-07] MEDS: fluPHENAZine decanoate 25 MG/ML 5 ML VIAL IM (10:01)
[2022-11-07] MEDS: fluPHENAZine HCl 5 MG TABLET PO ×2 (10:02→20:56)
--- NOTE | 2022-11-07 14:40 | HO.PSYCHPN ---
Subjective Subjective Date of Service: 11/07/22 Reason For Visit: Psychosis Subjective Notes: Section 7 Interim History: Pt mostly in bed today. She asks this internal communications writer if I can discharge her today as I am compliant with all my medications, I will continue taking them. Pt continues to present with extensive delusions of being part of the [place]. She reports water contaminated, declines VS today although she did allow RN to check yesterday. She received PETERSON of prolixin 25mg IM today. Pt presents as very disheveled, has not showered since admission and probably longer than that. Some mild resting tremor noted. Pt declines taking any other medications for EPS. Medication Compliance: Yes Mental Status Exam Mental Status Exam Narrative: Appearance: minimal eye contact, in NAD Behavior: minimally engaging, not talking, mostly nodding to questions Psychomotor: some retardation noted TP: unable to assess as mostly mute Speech:very little production Delusions: paranoid delusions food being poisoned/persecutory delusions of [place] going after her SI: nods, no AH/VH: appears internally preoccupied Insight/judgment: impaired x 2. Diagnostics Vital Signs (24Hr): Vital Signs - 24 hr 11/07/22 06:00 Respiratory Rate 16 Medications Medications Current Medications Acetaminophen (Acetaminophen 325 Mg Tablet) 650 mg PO Q6H PRN PRN Reason: Headache/Pain Mild Scale (1-3) Al Hydroxide/Mg Hydroxide (Magnesium Hydrox/Alum Hydrox 30 Ml Oral.Susp) 30 ml PO Q6H PRN PRN Reason: Heartburn/Nausea Amlodipine Besylate (Amlodipine Besylate 5 Mg Tablet) 5 mg PO DAILY [facility]; Protocol Last Admin: 11/07/22 10:05 Dose: Not Given Fluphenazine Decanoate (Fluphenazine Decanoate 25 Mg/Ml 5 Ml Vial) 25 mg IM Q14D@0900 [facility] Last Admin: 11/07/22 10:01 Dose: 25 mg Fluphenazine HCl (Fluphenazine Hcl 5 Mg Tablet) 5 mg PO BID [facility] Last Admin: 11/07/22 10:02 Dose: 5 mg Haloperidol Lactate (Haloperidol Lactate 5 Mg/Ml Vial) 5 mg IM BID PRN PRN Reason: if refuses oral prolixin per joselyn Hydroxyzine HCl (Hydroxyzine Hcl 25 Mg Tablet) 25 mg PO Q6H PRN PRN Reason: Anxiety Lorazepam (Lorazepam 1 Mg Tablet) 1 mg PO BID [facility] Last Admin: 11/07/22 10:05 Dose: Not Given Magnesium Hydroxide (Milk Of Magnesia 30 Ml Oral.Susp) 30 ml PO DAILY PRN PRN Reason: Constipation Trazodone HCl (Trazodone Hcl 50 Mg Tablet) 50 mg PO BEDTIME MRX1 PRN PRN Reason: Insomnia Allergies Allergies Allergy/AdvReac Type Severity Reaction Status Date / Time cashew nut Allergy Severe ANAPHYLAXIS Verified 01/31/22 11:11 peanut [Peanut] Allergy Severe ANAPHALAXIS Verified 01/31/22 11:11 Assessment & Plan Assessment & Plan (1) Schizophrenia: Status: Chronic Code(s): F20.9 - Schizophrenia, unspecified Plan Ms. Guillaume is a 62 year-old woman with hx of schizophrenia. She was last psychiatrically admitted to on 10/2021 and discharged on prolixin 25mg IM [id number]. It appears that pt stopped prolixin about 4 months and gradually has been decompensating, presenting more paranoid and suspicious. She was found wondering on streets wearing mostly just bath rope, presented as paranoid. She was brought to [facility]- found to have hypertensive crisis, elevated TSH, refusing to eat because she believes food is poisoned, declining to have HTN treatment stating that there was cocaine in the water of the hospital. Pt given prolixin 12.5mg IM on 10/24/2022, next prolixin dose due on 11/07/22- higher dose of 25mg [id number]. This internal communications writer saw pt while at [facility]. She appears now slightly more catatonic features including mutism, negativism along with underlying paranoid and persecutor delusions. PLAN 1. Admit on M3, Sect 12b, 15 minutes checks 2. Next prolixin 25mg IM [id number] due on 11/07/22- supposed to supplement with oral prolixin as there is 2 week delay onset. Back up haldol if refuses prolixin but pt with s/s of catatonia, may give ativan 3. Obtain collateral information from [place]- brother and guardian [phone]. 4. After care planning. 11/02- continue current medication. on sect 12, will file. 11/03 petition for sec 8 filed, pt now on section 7. continue current medication per joselyn's pt scheduled to received prolixin 25mg IM on 11/07/2022. 11/04 contnue current treatment plan 5 min checks 11/05 continue current treatment plan 11/06 continue current tx. Next prolixin Dec 25mg IM due tomorrow, will d/c oral prolixin by then. 11/07 received prolixin 25mg IM today, next one due on 11/21/2022. Patient educated on: diagnosis Guardian/Caregiver educated on: diagnosis Informed Consent: understands Reason for contiued inpatient stay Substantial Risk for: inability to function Time Spent With Patient Time: Total time managing care of this patient today ____ minutes.
--- NOTE | 2022-11-07 16:29 | PC.NURSE ---
At 1500 Vaishali asked me to check her blood pressure manually. I asked if she had any headache and she said no . The reading I got was 200/110. Pt stated, That cannot be right because I do not have a headache. She requested to check her BP manually herself. She pumped the sphygmomanometer to 140 and stated It's 128/76. Write that in my chart. I explained to patient that I would document both of our readings in her chart. Nataliya Maynard ADULT FAMILY HOME PROGRAM MANAGER informed.
[2022-11-07 16:40] VITALS: BP 201/112
[2022-11-07] MEDS: amLODIPine Besylate 5 MG TABLET PO ×2 (16:48→18:16)
[2022-11-07 18:19] VITALS: BP 185/104; PULSE 72
--- NOTE | 2022-11-07 18:28 | PC.NURSE ---
Patient agreed to a recheck of her blood pressure, which continues to be elevated. Patient denies headache, blurry vision. She accepted the PRN dose of Norvasc. While evaluating her BP, it was noted that she had developed some rhythmic movements or her arms, and slightly, of her head, Patient was able to hold still for check of BP. Dr. Yip updated re: BP, and notified re: movements via [employer].
[2022-11-07 20:41] VITALS: BP 172/92
[2022-11-08 06:00] VITALS: BP 126/84; RESP 18
--- NOTE | 2022-11-08 09:15 | P.PNPSI_ITS ---
Subjective Subjective Date of Service: 11/08/22 Reason For Visit: Psychosis Subjective Notes: Section 7 Interim History: Pt in her room most of the day. No urinating in laundry basket. Pt had elevated BP, allowed RN to recheck and did take amlodipine. Today, superficially cooperative denying any symptoms and asking to be discharged home. She denies SI/HI. Appears internally preoccupied and not forthcoming. Medication Compliance: Yes Side effects from medications: No Mental Status Exam Mental Status Exam Narrative: Appearance: minimal eye contact, in NAD Behavior: minimally engaging, not talking, mostly nodding to questions Psychomotor: some retardation noted TP: unable to assess as mostly mute Speech:very little production Delusions: paranoid delusions food being poisoned/persecutory delusions of [place] going after her SI: nods, no AH/VH: appears internally preoccupied Insight/judgment: impaired x 2. Diagnostics Vital Signs (24Hr): Vital Signs - 24 hr 11/09/22 20:48 11/10/22 08:52 Pulse Rate 59 78 Respiratory Rate 20 Blood Pressure 134/66 158/90 H BMI result Body Mass Index 21.2 Medications Medications Current Medications Acetaminophen (Acetaminophen 325 Mg Tablet) 650 mg PO Q6H PRN PRN Reason: Headache/Pain Mild Scale (1-3) Al Hydroxide/Mg Hydroxide (Magnesium Hydrox/Alum Hydrox 30 Ml Oral.Susp) 30 ml PO Q6H PRN PRN Reason: Heartburn/Nausea Amlodipine Besylate (Amlodipine Besylate 5 Mg Tablet) 5 mg PO DAILY [facility]; Protocol Last Admin: 11/10/22 08:47 Dose: 5 mg Amlodipine Besylate (Amlodipine Besylate 5 Mg Tablet) 5 mg PO ONCE PRN; Protocol PRN Reason: SBP > 160 Last Admin: 11/07/22 18:16 Dose: 5 mg Fluphenazine Decanoate (Fluphenazine Decanoate 25 Mg/Ml 5 Ml Vial) 25 mg IM Q14D@0900 [facility] Last Admin: 11/07/22 10:01 Dose: 25 mg Fluphenazine HCl (Fluphenazine Hcl 5 Mg Tablet) 5 mg PO BID [facility] Last Admin: 11/10/22 08:47 Dose: 5 mg Haloperidol Lactate (Haloperidol Lactate 5 Mg/Ml Vial) 5 mg IM BID PRN PRN Reason: if refuses oral prolixin per joselyn Hydroxyzine HCl (Hydroxyzine Hcl 25 Mg Tablet) 25 mg PO Q6H PRN PRN Reason: Anxiety Magnesium Hydroxide (Milk Of Magnesia 30 Ml Oral.Susp) 30 ml PO DAILY PRN PRN Reason: Constipation Trazodone HCl (Trazodone Hcl 50 Mg Tablet) 50 mg PO BEDTIME MRX1 PRN PRN Reason: Insomnia Allergies Allergies Allergy/AdvReac Type Severity Reaction Status Date / Time cashew nut Allergy Severe ANAPHYLAXIS Verified 01/31/22 11:11 peanut [Peanut] Allergy Severe ANAPHALAXIS Verified 01/31/22 11:11 Assessment & Plan Assessment & Plan (1) Schizophrenia: Status: Chronic Code(s): F20.9 - Schizophrenia, unspecified Plan Ms. Guillaume is a 62 year-old woman with hx of schizophrenia. She was last psychiatrically admitted to on 10/2021 and discharged on prolixin 25mg IM [id number]. It appears that pt stopped prolixin about 4 months and gradually has been decompensating, presenting more paranoid and suspicious. She was found wondering on streets wearing mostly just bath rope, presented as paranoid. She was brought to [facility]- found to have hypertensive crisis, elevated TSH, refusing to eat because she believes food is poisoned, declining to have HTN treatment stating that there was cocaine in the water of the hospital. Pt given prolixin 12.5mg IM on 10/24/2022, next prolixin dose due on 11/07/22- higher dose of 25mg [id number]. This ad writer saw pt while at [facility]. She appears now slightly more catatonic fea tures including mutism, negativism along with underlying paranoid and persecutor delusions. PLAN 1. Admit on M3, Sect 12b, 15 minutes checks 2. Next prolixin 25mg IM [id number] due on 11/07/22- supposed to supplement with oral prolixin as there is 2 week delay onset. Back up haldol if refuses prolixin but pt with s/s of catatonia, may give ativan 3. Obtain collateral information from [place]- brother and guardian [phone]. 4. After care planning. 11/02- continue current medication. on sect 12, will file. 11/03 petition for sec 8 filed, pt now on section 7. continue current medication per joselyn's pt scheduled to received prolixin 25mg IM on 11/07/2022. 11/04 contnue current treatment plan 5 min checks 11/05 continue current treatment plan 11/06 continue current tx. Next prolixin Dec 25mg IM due tomorrow, will d/c oral prolixin by then. 11/07 received prolixin 25mg IM today, next one due on 11/21/2022. 11/08 continue tx. Reason for contiued inpatient stay Substantial Risk for: inability to function Time Spent With Patient Time: Total time managing care of this patient today ____ minutes.
[2022-11-08] MEDS: amLODIPine Besylate 5 MG TABLET PO (09:24)
[2022-11-08] MEDS: fluPHENAZine HCl 5 MG TABLET PO ×2 (09:24→20:47)
[2022-11-08 11:20] VITALS: BP 118/78
[2022-11-08 11:38] VITALS: BP 126/84
[2022-11-08 13:50] VITALS: BP 122/80
[2022-11-08 18:45] VITALS: BP 138/80; PULSE 88
[2022-11-09 07:00] VITALS: BMI 21.2
[2022-11-09 08:47] VITALS: BP 118/75; PULSE 84; RESP 16
[2022-11-09] MEDS: fluPHENAZine HCl 5 MG TABLET PO ×2 (09:00→20:53)
[2022-11-09] MEDS: amLODIPine Besylate 5 MG TABLET PO (09:01)
--- NOTE | 2022-11-09 12:20 | HO.PSYCHPN ---
Subjective Subjective Date of Service: 11/09/22 Reason For Visit: Psychosis Subjective Notes: Section 7 Interim History: Pt more visible on the unit. No urinating in laundry basket. Per nursing, pt did sleep through the night. Her BP much more stable and she is taking amlodipine. She has log of BP and when she has taken medications and makes purpose to show this residential mortgage underwriter as she advocates for discharge soon stating I'm very cooperative, I am feeling well. She denies SI/HI. Appears internally preoccupied and not forthcoming. Medication Compliance: Yes Mental Status Exam Mental Status Exam Narrative: Appearance: minimal eye contact, in NAD Behavior: minimally engaging, not talking, mostly nodding to questions Psychomotor: some retardation noted TP: unable to assess as mostly mute Speech:very little production Delusions: paranoid delusions food being poisoned/persecutory delusions of [place] going after her SI: nods, no AH/VH: appears internally preoccupied Insight/judgment: impaired x 2. Diagnostics Vital Signs (24Hr): Vital Signs - 24 hr 11/09/22 20:48 11/10/22 08:52 Pulse Rate 59 78 Respiratory Rate 20 Blood Pressure 134/66 158/90 H BMI result Body Mass Index 21.2 Medications Medications Current Medications Acetaminophen (Acetaminophen 325 Mg Tablet) 650 mg PO Q6H PRN PRN Reason: Headache/Pain Mild Scale (1-3) Al Hydroxide/Mg Hydroxide (Magnesium Hydrox/Alum Hydrox 30 Ml Oral.Susp) 30 ml PO Q6H PRN PRN Reason: Heartburn/Nausea Amlodipine Besylate (Amlodipine Besylate 5 Mg Tablet) 5 mg PO DAILY [facility]; Protocol Last Admin: 11/10/22 08:47 Dose: 5 mg Amlodipine Besylate (Amlodipine Besylate 5 Mg Tablet) 5 mg PO ONCE PRN; Protocol PRN Reason: SBP > 160 Last Admin: 11/07/22 18:16 Dose: 5 mg Fluphenazine Decanoate (Fluphenazine Decanoate 25 Mg/Ml 5 Ml Vial) 25 mg IM Q14D@0900 [facility] Last Admin: 11/07/22 10:01 Dose: 25 mg Fluphenazine HCl (Fluphenazine Hcl 5 Mg Tablet) 5 mg PO BID [facility] Last Admin: 11/10/22 08:47 Dose: 5 mg Haloperidol Lactate (Haloperidol Lactate 5 Mg/Ml Vial) 5 mg IM BID PRN PRN Reason: if refuses oral prolixin per joselyn Hydroxyzine HCl (Hydroxyzine Hcl 25 Mg Tablet) 25 mg PO Q6H PRN PRN Reason: Anxiety Magnesium Hydroxide (Milk Of Magnesia 30 Ml Oral.Susp) 30 ml PO DAILY PRN PRN Reason: Constipation Trazodone HCl (Trazodone Hcl 50 Mg Tablet) 50 mg PO BEDTIME MRX1 PRN PRN Reason: Insomnia Allergies Allergies Allergy/AdvReac Type Severity Reaction Status Date / Time cashew nut Allergy Severe ANAPHYLAXIS Verified 01/31/22 11:11 peanut [Peanut] Allergy Severe ANAPHALAXIS Verified 01/31/22 11:11 Assessment & Plan Assessment & Plan (1) Schizophrenia: Status: Chronic Code(s): F20.9 - Schizophrenia, unspecified Plan Ms. Guillaume is a 62 year-old woman with hx of schizophrenia. She was last psychiatrically admitted to on 10/2021 and discharged on prolixin 25mg IM [id number]. It appears that pt stopped prolixin about 4 months and gradually has been decompensating, presenting more paranoid and suspicious. She was found wondering on streets wearing mostly just bath rope, presented as paranoid. She was brought to [facility]- found to have hypertensive crisis, elevated TSH, refusing to eat because she believes food is poisoned, declining to have HTN treatment stating that there was cocaine in the water of the hospital. Pt given prolixin 12.5mg IM on 10/24/2022, next prolixin dose due on 11/07/22- higher dose of 25mg [id number]. This residential mortgage underwriter saw pt while at [facility]. She appears now slightly more catatonic features including mutism, negativism along with underlying paranoid and persecutor delusions. PLAN 1. Admit on M3, Sect 12b, 15 minutes checks 2. Next prolixin 25mg IM [id number] due on 11/07/22- supposed to supplement with oral prolixin as there is 2 week delay onset. Back up haldol if refuses prolixin but pt with s/s of catatonia, may give ativan 3. Obtain collateral information from [place]- brother and guardian [phone]. 4. After care planning. 11/02- continue current medication. on sect 12, will file. 11/03 petition for sec 8 filed, pt now on section 7. continue current medication per joselyn's pt scheduled to received prolixin 25mg IM on 11/07/2022. 11/04 contnue current treatment plan 5 min checks 11/05 continue current treatment plan 11/06 continue current tx. Next prolixin Dec 25mg IM due tomorrow, will d/c oral prolixin by then. 11/07 received prolixin 25mg IM today, next one due on 11/21/2022. 11/08 continue tx. 11/09 continue tx. Reason for contiued inpatient stay Substantial Risk for: inability to function Time Spent With Patient Time: Total time managing care of this patient today ____ minutes.
[2022-11-09 20:48] VITALS: BP 134/66; PULSE 59
[2022-11-10] MEDS: amLODIPine Besylate 5 MG TABLET PO (08:47)
[2022-11-10] MEDS: fluPHENAZine HCl 5 MG TABLET PO ×2 (08:47→22:31)
[2022-11-10 08:52] VITALS: BP 158/90; PULSE 78; RESP 20
--- NOTE | 2022-11-10 09:36 | HO.PSYCHPN ---
Subjective Subjective Date of Service: 11/10/22 Reason For Visit: Psychosis Subjective Notes: Section 7 Interim History: Pt more visible on the unit. No urinating in laundry basket. Per nursing, pt did sleep through the night. Her BP much more stable and she is taking amlodipine. Pt with brighter affect. She denies any concerns. When asked about delusions and paranoid, she states I feel calmer, better. She denies SI/HI. Not fully forthcoming with extend of delusions but appears more organized. Medication Compliance: Yes Side effects from medications: No Attending Groups: No Mental Status Exam Mental Status Exam Narrative: Appearance: minimal eye contact, in NAD Behavior: minimally engaging, not talking, mostly nodding to questions Psychomotor: some retardation noted TP: unable to assess as mostly mute Speech:very little production Delusions: paranoid delusions food being poisoned/persecutory delusions of [place] going after her SI: nods, no AH/VH: appears internally preoccupied Insight/judgment: impaired x 2. Diagnostics Vital Signs (24Hr): Vital Signs - 24 hr 11/09/22 20:48 11/10/22 08:52 Pulse Rate 59 78 Respiratory Rate 20 Blood Pressure 134/66 158/90 H BMI result Body Mass Index 21.2 Medications Medications Current Medications Acetaminophen (Acetaminophen 325 Mg Tablet) 650 mg PO Q6H PRN PRN Reason: Headache/Pain Mild Scale (1-3) Al Hydroxide/Mg Hydroxide (Magnesium Hydrox/Alum Hydrox 30 Ml Oral.Susp) 30 ml PO Q6H PRN PRN Reason: Heartburn/Nausea Amlodipine Besylate (Amlodipine Besylate 5 Mg Tablet) 5 mg PO DAILY [facility]; Protocol Last Admin: 11/10/22 08:47 Dose: 5 mg Amlodipine Besylate (Amlodipine Besylate 5 Mg Tablet) 5 mg PO ONCE PRN; Protocol PRN Reason: SBP > 160 Last Admin: 11/07/22 18:16 Dose: 5 mg Fluphenazine Decanoate (Fluphenazine Decanoate 25 Mg/Ml 5 Ml Vial) 25 mg IM Q14D@0900 [facility] Last Admin: 11/07/22 10:01 Dose: 25 mg Fluphenazine HCl (Fluphenazine Hcl 5 Mg Tablet) 5 mg PO BID [facility] Last Admin: 11/10/22 08:47 Dose: 5 mg Haloperidol Lactate (Haloperidol Lactate 5 Mg/Ml Vial) 5 mg IM BID PRN PRN Reason: if refuses oral prolixin per joselyn Hydroxyzine HCl (Hydroxyzine Hcl 25 Mg Tablet) 25 mg PO Q6H PRN PRN Reason: Anxiety Magnesium Hydroxide (Milk Of Magnesia 30 Ml Oral.Susp) 30 ml PO DAILY PRN PRN Reason: Constipation Trazodone HCl (Trazodone Hcl 50 Mg Tablet) 50 mg PO BEDTIME MRX1 PRN PRN Reason: Insomnia Allergies Allergies Allergy/AdvReac Type Severity Reaction Status Date / Time cashew nut Allergy Severe ANAPHYLAXIS Verified 01/31/22 11:11 peanut [Peanut] Allergy Severe ANAPHALAXIS Verified 01/31/22 11:11 Assessment & Plan Assessment & Plan (1) Schizophrenia: Status: Chronic Code(s): F20.9 - Schizophrenia, unspecified Plan Ms. Guillaume is a 62 year-old woman with hx of schizophrenia. She was last psychiatrically admitted to on 10/2021 and discharged on prolixin 25mg IM [id number]. It appears that pt stopped prolixin about 4 months and gradually has been decompensating, presenting more paranoid and suspicious. She was found wondering on streets wearing mostly just bath rope, presented as paranoid. She was brought to [facility]- found to have hypertensive crisis, elevated TSH, refusing to eat because she believes food is poisoned, declining to have HTN treatment stating that there was cocaine in the water of the hospital. Pt given prolixin 12.5mg IM on 10/24/2022, next prolixin dose due on 11/07/22- higher dose of 25mg [id number]. This typewriter ribbon winder saw pt while at [facility]. She appears now slightly more catatonic features including mutism, negativism along with underlying paranoid and persecutor delusions. PLAN 1. Admit on M3, Sect 12b, 15 minutes checks 2. Next prolixin 25mg IM [id number] due on 11/07/22- supposed to supplement with oral prolixin as there is 2 week delay onset. Back up haldol if refuses prolixin but pt with s/s of catatonia, may give ativan 3. Obtain collateral information from [place]- brother and guardian [phone]. 4. After care planning. 11/02- continue current medication. on sect 12, will file. 11/03 petition for sec 8 filed, pt now on section 7. continue current medication per joselyn's pt scheduled to received prolixin 25mg IM on 11/07/2022. 11/04 contnue current treatment plan 5 min checks 11/05 continue current treatment plan 11/06 continue current tx. Next prolixin Dec 25mg IM due tomorrow, will d/c oral prolixin by then. 11/07 received prolixin 25mg IM today, next one due on 11/21/2022. 11/08 continue tx. 11/09 continue tx. 11/10 continue tx. Patient educated on: diagnosis Guardian/Caregiver educated on: diagnosis Informed Consent: understands Reason for contiued inpatient stay Substantial Risk for: inability to function Time Spent With Patient Time: Total time managing care of this patient today ____ minutes.
[2022-11-10 10:30] VITALS: BP 142/90
[2022-11-10 22:30] VITALS: RESP 16
[2022-11-11 09:00] VITALS: BP 158/88; PULSE 76; RESP 18
[2022-11-11] MEDS: amLODIPine Besylate 5 MG TABLET PO ×2 (09:07→22:27)
[2022-11-11] MEDS: fluPHENAZine HCl 5 MG TABLET PO (09:07)
[2022-11-11 10:07] VITALS: BP 134/86; PULSE 84; RESP 18
--- NOTE | 2022-11-11 12:14 | P.PNPSI_ITS ---
Subjective Subjective Date of Service: 11/11/22 Reason For Visit: Psychosis Subjective Notes: Section 7 Interim History: Pt mostly in bed. She is pleasant on approach. Pt denies any concerns including VH/AH. She denies SI/HI. She asks this insurance underwriter when will she be discharged. Explained that we need more time to make sure she is doing well and more organized. Pt shows understanding. Medication Compliance: Yes Mental Status Exam Mental Status Exam Narrative: Appearance: minimal eye contact, in NAD Behavior: minimally engaging, not talking, mostly nodding to questions Psychomotor: some retardation noted TP: unable to assess as mostly mute Speech:very little production Delusions: paranoid delusions food being poisoned/persecutory delusions of BEHZAD going after her SI: nods, no AH/VH: appears internally preoccupied Insight/judgment: impaired x 2. Diagnostics Vital Signs (24Hr): Vital Signs - 24 hr 11/10/22 22:30 11/11/22 09:00 11/11/22 10:07 Pulse Rate 76 84 Respiratory Rate 16 18 18 Blood Pressure 158/88 H 134/86 BMI result Body Mass Index 21.2 Medications Medications Current Medications Acetaminophen (Acetaminophen 325 Mg Tablet) 650 mg PO Q6H PRN PRN Reason: Headache/Pain Mild Scale (1-3) Al Hydroxide/Mg Hydroxide (Magnesium Hydrox/Alum Hydrox 30 Ml Oral.Susp) 30 ml PO Q6H PRN PRN Reason: Heartburn/Nausea Amlodipine Besylate (Amlodipine Besylate 5 Mg Tablet) 5 mg PO BID [facility]; Protocol Fluphenazine Decanoate (Fluphenazine Decanoate 25 Mg/Ml 5 Ml Vial) 25 mg IM Q14D@0900 [facility] Last Admin: 11/07/22 10:01 Dose: 25 mg Hydroxyzine HCl (Hydroxyzine Hcl 25 Mg Tablet) 25 mg PO Q6H PRN PRN Reason: Anxiety Magnesium Hydroxide (Milk Of Magnesia 30 Ml Oral.Susp) 30 ml PO DAILY PRN PRN Reason: Constipation Trazodone HCl (Trazodone Hcl 50 Mg Tablet) 50 mg PO BEDTIME MRX1 PRN PRN Reason: Insomnia Allergies Allergies Allergy/AdvReac Type Severity Reaction Status Date / Time cashew nut Allergy Severe ANAPHYLAXIS Verified 01/31/22 11:11 peanut [Peanut] Allergy Severe ANAPHALAXIS Verified 01/31/22 11:11 Assessment & Plan Assessment & Plan (1) Schizophrenia: Status: Chronic Code(s): F20.9 - Schizophrenia, unspecified Plan Ms. Guillaume is a 62 year-old woman with hx of schizophrenia. She was last psychiatrically admitted to on 10/2021 and discharged on prolixin 25mg IM [id number]. It appears that pt stopped prolixin about 4 months and gradually has been decompensating, presenting more paranoid and suspicious. She was found wondering on streets wearing mostly just bath rope, presented as paranoid. She was brought to [facility]- found to have hypertensive crisis, elevated TSH, refusing to eat because she believes food is poisoned, declining to have HTN treatment stating that there was cocaine in the water of the hospital. Pt given prolixin 12.5mg IM on 10/24/2022, next prolixin dose due on 11/07/22- higher dose of 25mg I [id number]. This insurance underwriter saw pt while at [facility]. She appears now slightly more catatonic features including mutism, negativism along with underlying paranoid and persecutor delusions. PLAN 1. Admit on M3, Sect 12b, 15 minutes checks 2. Next prolixin 25mg IM [id number] due on 11/07/22- supposed to supplement with oral prolixin as there is 2 week delay onset. Back up haldol if refuses prolixin but pt with s/s of catatonia, may give ativan 3. Obtain collateral information from [place]- brother and guardian [phone]. 4. After care planning. 11/02- continue current medication. on sect 12, will file. 11/03 petition for sec 8 filed, pt now on section 7. continue current medication per joselyn's pt scheduled to received prolixin 25mg IM on 11/07/2022. 11/04 contnue current treatment plan 5 min checks 11/05 continue current treatment plan 11/06 continue current tx. Next prolixin Dec 25mg IM due tomorrow, will d/c oral prolixin by then. 11/07 received prolixin 25mg IM today, next one due on 11/21/2022. 11/08 continue tx. 11/09 continue tx. 11/10 continue tx. 11/11 continue tx. Reason for contiued inpatient stay Substantial Risk for: inability to function Time Spent With Patient Time: Total time managing care of this patient today ____ minutes.
[2022-11-11 22:27] VITALS: BP 140/86; PULSE 64; RESP 18
[2022-11-12 08:40] VITALS: BP 146/98; PULSE 72; RESP 20
[2022-11-12] MEDS: amLODIPine Besylate 5 MG TABLET PO ×2 (08:43→22:15)
[2022-11-12 10:59] VITALS: BP 148/92; PULSE 92; RESP 18
--- NOTE | 2022-11-12 13:27 | HO.PSYCHPN ---
Subjective Subjective Date of Service: 11/12/22 Reason For Visit: Psychosis Subjective Notes: Section 7 Interim History: Pt more visible. She did comb her hair and shows this science writer. She states she also had sponge bath. She smiles, engages more with this science writer. She denies SI/HI. Less AH/VH. Less supicious and eating food. Per nursing, pt is sleeping through the night. Medication Compliance: Yes Side effects from medications: No Attending Groups: No Mental Status Exam Mental Status Exam Narrative: Appearance:wearing hospital gown, poor hygiene, in NAD Behavior: much less guarded, looking forward to meet with this science writer to discuss dc Psychomotor: No retardation or agitation noted TP:linear Speech:clear, regular rate/rhythm, volume, spontaneous Delusions:less paranoid delusions, eating more SI: denies HI: denies AH/VH: appears internally preoccupied Insight/judgment: improving x 2. Diagnostics Vital Signs (24Hr): Vital Signs - 24 hr 11/12/22 22:10 11/13/22 08:44 Pulse Rate 68 80 Respiratory Rate 16 Blood Pressure 136/78 112/62 BMI result Body Mass Index 21.2 Medications Medications Current Medications Acetaminophen (Acetaminophen 325 Mg Tablet) 650 mg PO Q6H PRN PRN Reason: Headache/Pain Mild Scale (1-3) Al Hydroxide/Mg Hydroxide (Magnesium Hydrox/Alum Hydrox 30 Ml Oral.Susp) 30 ml PO Q6H PRN PRN Reason: Heartburn/Nausea Amlodipine Besylate (Amlodipine Besylate 5 Mg Tablet) 5 mg PO BID [facility]; Protocol Last Admin: 11/13/22 08:42 Dose: 5 mg Fluphenazine Decanoate (Fluphenazine Decanoate 25 Mg/Ml 5 Ml Vial) 25 mg IM Q14D@0900 [facility] Last Admin: 11/07/22 10:01 Dose: 25 mg Hydroxyzine HCl (Hydroxyzine Hcl 25 Mg Tablet) 25 mg PO Q6H PRN PRN Reason: Anxiety Magnesium Hydroxide (Milk Of Magnesia 30 Ml Oral.Susp) 30 ml PO DAILY PRN PRN Reason: Constipation Trazodone HCl (Trazodone Hcl 50 Mg Tablet) 50 mg PO BEDTIME PRN PRN Reason: Insomnia Allergies Allergies Allergy/AdvReac Type Severity Reaction Status Date / Time cashew nut Allergy Severe ANAPHYLAXIS Verified 01/31/22 11:11 peanut [Peanut] Allergy Severe ANAPHALAXIS Verified 01/31/22 11:11 Assessment & Plan Assessment & Plan (1) Schizophrenia: Status: Chronic Code(s): F20.9 - Schizophrenia, unspecified Plan Ms. Guillaume is a 62 year-old woman with hx of schizophrenia. She was last psychiatrically admitted to on 10/2021 and discharged on prolixin 25mg IM [id number]. It appears that pt stopped prolixin about 4 months and gradually has been decompensating, presenting more paranoid and suspicious. She was found wondering on streets wearing mostly just bath rope, presented as paranoid. She was brought to [facility]- found to have hypertensive crisis, elevated TSH, refusing to eat because she believes food is poisoned, declining to have HTN treatment stating that there was cocaine in the water of the hospital. Pt given prolixin 12.5mg IM on 10/24/2022, next prolixin dose due on 11/07/22- higher dose of 25mg [id number]. This science writer saw pt while at [facility]. She appears now slightly more catatonic features including mutism, negativism along with underlying paranoid and persecutor delusions. PLAN 1. Admit on M3, Sect 12b, 15 minutes checks 2. Next prolixin 25mg IM [id number] due on 11/07/22- supposed to supplement with oral prolixin as there is 2 week delay onset. Back up haldol if refuses prolixin but pt with s/s of catatonia, may give ativan 3. Obtain collateral information from [place]- brother and guardian [phone]. 4. After care planning. 11/02- continue current medication. on sect 12, will file. 11/03 petition for sec 8 filed, pt now on section 7. continue current medication per joselyn's pt scheduled to received prolixin 25mg IM on 11/07/2022. 11/04 contnue current treatment plan 5 min checks 11/05 continue current treatment plan 11/06 continue current tx. Next prolixin Dec 25mg IM due tomorrow, will d/c oral prolixin by then. 11/07 received prolixin 25mg IM today, next one due on 11/21/2022. 11/08 continue tx. 11/09 continue tx. 11/10 continue tx. 11/11 continue tx. 11/12 continue tx. Reason for contiued inpatient stay Substantial Risk for: inability to function Time Spent With Patient Time: Total time managing care of this patient today ____ minutes.
[2022-11-12 22:10] VITALS: BP 136/78; PULSE 68
[2022-11-13] MEDS: amLODIPine Besylate 5 MG TABLET PO ×2 (08:42→20:39)
[2022-11-13 08:44] VITALS: BP 112/62; PULSE 80; RESP 16
--- NOTE | 2022-11-13 12:31 | HO.PSYCHPN ---
Subjective Subjective Date of Service: 11/13/22 Reason For Visit: Psychosis Subjective Notes: Section 7 Interim History: Pt more visible. Pt in room. She had finished all her lunch. Pt was not eating before as she thought food was poisoned. Pt reports sleeping well. She reports she has been taking medications as prescribed, BP much more controlled. No SI/HI. No aggression towards self or others. Medication Compliance: Yes Mental Status Exam Mental Status Exam Narrative: Appearance:wearing hospital gown, poor hygiene, in NAD Behavior: much less guarded, looking forward to meet with this teletypewriter operator to discuss dc Psychomotor: No retardation or agitation noted TP:linear Speech:clear, regular rate/rhythm, volume, spontaneous Delusions:less paranoid delusions, eating more SI: denies HI: denies AH/VH: appears internally preoccupied Insight/judgment: improving x 2. Diagnostics Vital Signs (24Hr): Vital Signs - 24 hr 11/12/22 22:10 11/13/22 08:44 Pulse Rate 68 80 Respiratory Rate 16 Blood Pressure 136/78 112/62 BMI result Body Mass Index 21.2 Medications Medications Current Medications Acetaminophen (Acetaminophen 325 Mg Tablet) 650 mg PO Q6H PRN PRN Reason: Headache/Pain Mild Scale (1-3) Al Hydroxide/Mg Hydroxide (Magnesium Hydrox/Alum Hydrox 30 Ml Oral.Susp) 30 ml PO Q6H PRN PRN Reason: Heartburn/Nausea Amlodipine Besylate (Amlodipine Besylate 5 Mg Tablet) 5 mg PO BID [facility]; Protocol Last Admin: 11/13/22 08:42 Dose: 5 mg Fluphenazine Decanoate (Fluphenazine Decanoate 25 Mg/Ml 5 Ml Vial) 25 mg IM Q14D@0900 [facility] Last Admin: 11/07/22 10:01 Dose: 25 mg Hydroxyzine HCl (Hydroxyzine Hcl 25 Mg Tablet) 25 mg PO Q6H PRN PRN Reason: Anxiety Magnesium Hydroxide (Milk Of Magnesia 30 Ml Oral.Susp) 30 ml PO DAILY PRN PRN Reason: Constipation Trazodone HCl (Trazodone Hcl 50 Mg Tablet) 50 mg PO BEDTIME PRN PRN Reason: Insomnia Allergies Allergies Allergy/AdvReac Type Severity Reaction Status Date / Time cashew nut Allergy Severe ANAPHYLAXIS Verified 01/31/22 11:11 peanut [Peanut] Allergy Severe ANAPHALAXIS Verified 01/31/22 11:11 Assessment & Plan Assessment & Plan (1) Schizophrenia: Status: Chronic Code(s): F20.9 - Schizophrenia, unspecified Plan Ms. Guillaume is a 62 year-old woman with hx of schizophrenia. She was last psychiatrically admitted to on 10/2021 and discharged on prolixin 25mg IM [id number]. It appears that pt stopped prolixin about 4 months and gradually has been decompensating, presenting more paranoid and suspicious. She was found wondering on streets wearing mostly just bath rope, presented as paranoid. She was brought to [facility]- found to have hypertensive crisis, elevated TSH, refusing to eat because she believes food is poisoned, declining to have HTN treatment stating that there was cocaine in the water of the hospital. Pt given prolixin 12.5mg IM on 10/24/2022, next prolixin dose due on 11/07/22- higher dose of 25mg [id number]. This teletypewriter operator saw pt while at [facility]. She appears now slightly more catatonic features including mutism, negativism along with underlying paranoid and persecutor delusions. PLAN 1. Admit on M3, Sect 12b, 15 minutes checks 2. Next prolixin 25mg IM [id number] due on 11/07/22- supposed to supplement with oral prolixin as there is 2 week delay onset. Back up haldol if refuses prolixin but pt with s/s of catatonia, may give ativan 3. Obtain collateral information from [place]- brother and guardian [phone]. 4. After care planning. 11/02- continue current medication. on sect 12, will file. 11/03 petition for sec 8 filed, pt now on section 7. continue current medication per joselyn's pt scheduled to received prolixin 25mg IM on 11/07/2022. 11/04 contnue current treatment plan 5 min checks 11/05 continue current treatment plan 11/06 continue current tx. Next prolixin Dec 25mg IM due tomorrow, will d/c oral prolixin by then. 11/07 received prolixin 25mg IM today, next one due on 11/21/2022. 11/08 continue tx. 11/09 continue tx. 11/10 continue tx. 11/11 continue tx. 11/12 continue tx. 11/13 continue tx. Reason for contiued inpatient stay Substantial Risk for: inability to function Time Spent With Patient Time: Total time managing care of this patient today ____ minutes.
[2022-11-13 20:40] VITALS: BP 130/85; PULSE 53; TEMP 36.6; O2SAT 98
[2022-11-14 08:42] VITALS: BP 118/70; PULSE 71; O2SAT 99
[2022-11-14] MEDS: amLODIPine Besylate 5 MG TABLET PO (08:42)
[2022-11-14] MEDS: Propranolol HCL 10 MG TABLET PO (11:30)
--- NOTE | 2022-11-14 12:27 | HO.PSYCHPN ---
Subjective Subjective Date of Service: 11/14/22 Reason For Visit: Psychosis Subjective Notes: Section 7 Interim History: Pt more visible. She reports akathisia and asks for propanolol 10mg qid prn. This technical proposal writer offered ativan but she delcined stating that is an addicting medications. She declined even a one time dose. She also asked for benadryl 100mg q8h. Declined cogentin. Pt denies SI/HI. She asks this technical proposal writer if I would consider doing PETERSON q3w, which was explained to pt this has been tried in the past and she quickly decompensates and comes back to hospital. Medication Compliance: Yes Mental Status Exam Mental Status Exam Narrative: Appearance:wearing hospital gown, poor hygiene, in NAD Behavior: much less guarded, looking forward to meet with this technical proposal writer to discuss dc Psychomotor: No retardation or agitation noted TP:linear Speech:clear, regular rate/rhythm, volume, spontaneous Delusions:less paranoid delusions, eating more SI: denies HI: denies AH/VH: appears internally preoccupied Insight/judgment: improving x 2. Diagnostics Vital Signs (24Hr): Vital Signs - 24 hr 11/14/22 08:42 11/14/22 21:36 Pulse Rate 71 51 Respiratory Rate 16 Blood Pressure 118/70 128/64 Pulse Oximetry 99 95 Oxygen Delivery Method Room Air Room Air BMI result Body Mass Index 21.2 Medications Medications Current Medications Acetaminophen (Acetaminophen 325 Mg Tablet) 650 mg PO Q6H PRN PRN Reason: Headache/Pain Mild Scale (1-3) Al Hydroxide/Mg Hydroxide (Magnesium Hydrox/Alum Hydrox 30 Ml Oral.Susp) 30 ml PO Q6H PRN PRN Reason: Heartburn/Nausea Amlodipine Besylate (Amlodipine Besylate 5 Mg Tablet) 5 mg PO BID [facility]; Protocol Last Admin: 11/14/22 21:37 Dose: Not Given Diphenhydramine HCl (Diphenhydramine Hcl 25 Mg Capsule) 100 mg PO Q8H PRN PRN Reason: Restlessness Last Admin: 11/15/22 04:40 Dose: 100 mg Fluphenazine Decanoate (Fluphenazine Decanoate 25 Mg/Ml 5 Ml Vial) 25 mg IM Q14D@0900 [facility] Last Admin: 11/07/22 10:01 Dose: 25 mg Hydroxyzine HCl (Hydroxyzine Hcl 25 Mg Tablet) 25 mg PO Q6H PRN PRN Reason: Anxiety Magnesium Hydroxide (Milk Of Magnesia 30 Ml Oral.Susp) 30 ml PO DAILY PRN PRN Reason: Constipation Propranolol HCl (Propranolol Hcl 10 Mg Tablet) 10 mg PO QID PRN; Protocol PRN Reason: restlessness Last Admin: 11/14/22 11:30 Dose: 10 mg Trazodone HCl (Trazodone Hcl 50 Mg Tablet) 50 mg PO BEDTIME PRN PRN Reason: Insomnia Allergies Allergies Allergy/AdvReac Type Severity Reaction Status Date / Time cashew nut Allergy Severe ANAPHYLAXIS Verified 01/31/22 11:11 peanut [Peanut] Allergy Severe ANAPHALAXIS Verified 01/31/22 11:11 Assessment & Plan Assessment & Plan (1) Schizophrenia: Status: Chronic Code(s): F20.9 - Schizophrenia, unspecified Plan Ms. Guillaume is a 62 year-old woman with hx of schizophrenia. She was last psychiatrically admitted to on 10/2021 and discharged on prolixin 25mg IM [id number]. It appears that pt stopped prolixin about 4 months and gradually has been decompensating, presenting more paranoid and suspicious. She was found wondering on streets wearing mostly just bath rope, presented as paranoid. She was brought to [facility]- found to have hypertensive crisis, elevated TSH, refusing to eat because she believes food is poisoned, declining to have HTN treatment stating that there was cocaine in the water of the hospital. Pt given prolixin 12.5mg IM on 10/24/2022, next prolixin dose due on 11/07/22- higher dose of 25mg [id number]. This technical proposal writer saw pt while at [facility]. She appears now slightly more catatonic features including mutism, negativism along with underlying paranoid and persecutor delusions. PLAN 1. Admit on M3, Sect 12b, 15 minutes checks 2. Next prolixin 25mg IM [id number] due on 11/07/22- supposed to supplement with oral prolixin as there is 2 week delay onset. Back up haldol if refuses prolixin but pt with s/s of catatonia, may give ativan 3. Obtain collateral information from [place]- brother and guardian [phone]. 4. After care planning. 11/02- continue current medication. on sect 12, will file. 11/03 petition for sec 8 filed, pt now on section 7. continue current medication per joselyn's pt scheduled to received prolixin 25mg IM on 11/07/2022. 11/04 contnue current treatment plan 5 min checks 11/05 continue current treatment plan 11/06 continue current tx. Next prolixin Dec 25mg IM due tomorrow, will d/c oral prolixin by then. 11/07 received prolixin 25mg IM today, next one due on 11/21/2022. 11/08 continue tx. 11/09 continue tx. 11/10 continue tx. 11/11 continue tx. 11/12 continue tx. 11/13 continue tx. 11/14 added propanolol 10mg po QID prn akathesia (pt declined to schedule it), benadryl 100mg po q8h prn for same. pt declined ativan or cogentin. Reason for contiued inpatient stay Substantial Risk for: inability to function Time Spent With Patient Time: Total time managing care of this patient today ____ minutes.
[2022-11-14] MEDS: diphenhydrAMINE HCL 25 MG CAPSULE 100 MG PO (13:10)
[2022-11-14 21:36] VITALS: BP 128/64; PULSE 51; RESP 16; O2SAT 95
[2022-11-15] MEDS: diphenhydrAMINE HCL 25 MG CAPSULE 100 MG PO ×2 (04:40→11:04)
[2022-11-15 08:45] VITALS: BP 132/68; PULSE 53; RESP 20; O2SAT 98
[2022-11-15] MEDS: amLODIPine Besylate 5 MG TABLET PO ×2 (08:48→21:16)
--- NOTE | 2022-11-15 11:00 | PC.NURSE ---
Spoke to Nataliya Maynard NP who authorized early administration of Benadryl.
--- NOTE | 2022-11-15 12:21 | P.PNPSI_ITS ---
Subjective Subjective Date of Service: 11/15/22 Reason For Visit: Psychosis Subjective Notes: Section 7 Interim History: Pt more visible. She reports feeling restless but reports more upper symptoms than lower extremity symptoms. She does have somewhat swollen tongued, taking benadryl although educated on max dose in 24 hrs. Pt declines ativan for restlessness. She denies SI/HI. Medication Compliance: Yes Side effects from medications: No Attending Groups: No Review of Systems Acute medical concerns: No Mental Status Exam Mental Status Exam Narrative: Appearance:wearing hospital gown, poor hygiene, in NAD Behavior: much less guarded, looking forward to meet with this contract writer to discuss dc Psychomotor: No retardation or agitation noted TP:linear Speech:clear, regular rate/rhythm, volume, spontaneous Delusions:less paranoid delusions, eating more SI: denies HI: denies AH/VH: appears internally preoccupied Insight/judgment: improving x 2. Diagnostics Vital Signs (24Hr): Vital Signs - 24 hr 11/16/22 21:10 11/17/22 08:45 Pulse Rate 55 66 Respiratory Rate 14 16 Blood Pressure 101/60 126/84 Pulse Oximetry 96 96 Oxygen Delivery Method Room Air Room Air BMI result Body Mass Index 21.7 Medications Medications Current Medications Acetaminophen (Acetaminophen 325 Mg Tablet) 650 mg PO Q6H PRN PRN Reason: Headache/Pain Mild Scale (1-3) Al Hydroxide/Mg Hydroxide (Magnesium Hydrox/Alum Hydrox 30 Ml Oral.Susp) 30 ml PO Q6H PRN PRN Reason: Heartburn/Nausea Amlodipine Besylate (Amlodipine Besylate 5 Mg Tablet) 5 mg PO BID [facility]; Protocol Last Admin: 11/17/22 09:03 Dose: 5 mg Diphenhydramine HCl (Diphenhydramine Hcl 25 Mg Capsule) 100 mg PO Q8H PRN PRN Reason: Restlessness Last Admin: 11/17/22 18:47 Dose: 100 mg Fluphenazine Decanoate (Fluphenazine Decanoate 25 Mg/Ml 5 Ml Vial) 25 mg IM Q14D@0900 [facility] Last Admin: 11/07/22 10:01 Dose: 25 mg Magnesium Hydroxide (Milk Of Magnesia 30 Ml Oral.Susp) 30 ml PO DAILY PRN PRN Reason: Constipation Propranolol HCl (Propranolol Hcl 10 Mg Tablet) 10 mg PO QID PRN; Protocol PRN Reason: restlessness Last Admin: 11/14/22 11:30 Dose: 10 mg Trazodone HCl (Trazodone Hcl 50 Mg Tablet) 50 mg PO BEDTIME PRN PRN Reason: Insomnia Last Admin: 11/16/22 00:13 Dose: 50 mg Allergies Allergies Allergy/AdvReac Type Severity Reaction Status Date / Time cashew nut Allergy Severe ANAPHYLAXIS Verified 01/31/22 11:11 peanut [Peanut] Allergy Severe ANAPHALAXIS Verified 01/31/22 11:11 Assessment & Plan Assessment & Plan (1) Schizophrenia: Status: Chronic Code(s): F20.9 - Schizophrenia, unspecified Plan Ms. Guillaume is a 62 year-old woman with hx of schizophrenia. She was last psychiatrically admitted to on 10/2021 and discharged on prolixin 25mg IM [id number]. It appears that pt stopped prolixin about 4 months and gradually has been decompensating, presenting more paranoid and suspicious. She was found wondering on streets wearing mostly just bath rope, presented as paranoid. She was brought to [facility]- found to have hypertensive crisis, elevated TSH, refusing to eat because she believes food is poisoned, declining to have HTN treatment stating that there was cocaine in the water of the hospital. Pt given prolixin 12.5mg IM on 10/24/2022, next prolixin dose due on 11/07/22- higher dose of 25mg [id number]. This contract writer saw pt while at [facility]. She appears now slightly more catatonic features including mutism, negativism along with underlying paranoid and persecutor delusions. PLAN 1. Admit on M3, Sect 12b, 15 minutes checks 2. Next prolixin 25mg IM [id number] due on 11/07/22- supposed to supplement with oral prolixin as there is 2 week delay onset. Back up haldol if refuses prolixin but pt with s/s of catatonia, may give ativan 3. Obtain collateral information from [place]- brother and guardian [phone]. 4. After care planning. 11/02- continue current medication. on sect 12, will file. 11/03 petition for sec 8 filed, pt now on section 7. continue current medication per joselyn's pt scheduled to received prolixin 25mg IM on 11/07/2022. 11/04 contnue current treatment plan 5 min checks 11/05 continue current treatment plan 11/06 continue current tx. Next prolixin Dec 25mg IM due tomorrow, will d/c oral prolixin by then. 11/07 received prolixin 25mg IM today, next one due on 11/21/2022. 11/08 continue tx. 11/09 continue tx. 11/10 continue tx. 11/11 continue tx. 11/12 continue tx. 11/13 continue tx. 11/14 added propanolol 10mg po QID prn akathesia (pt declined to schedule it), benadryl 100mg po q8h prn for same. pt declined ativan or cogentin. 11/15 continue tx. Reason for contiued inpatient stay Substantial Risk for: inability to function Time Spent With Patient Time: Total time managing care of this patient today ____ minutes.
--- NOTE | 2022-11-15 15:30 | HE.PHANOTE ---
Jorje texted Nataliya Maynard regarding a benadryl order that read 200 mg Q8h PRN . I informed the provider that the max recommended oral dose of benadryl is 300mg a day and if patient was to take all available doses then it would be 600 mg a day. Provider responded It may be for only the next 24 hours then lower dose . Verified order as I did make the provider aware that this is higher than recommended.
[2022-11-15] MEDS: diphenhydrAMINE HCL 25 MG CAPSULE 200 MG PO ×2 (16:30→23:25)
--- NOTE | 2022-11-15 17:07 | PC.NURSE ---
Spoke to Nataliya Maynard NP who authorized early administration of Benadryl 200mg.
[2022-11-15 21:14] VITALS: BP 142/78; PULSE 86; TEMP 36.2; O2SAT 99
[2022-11-16] MEDS: traZODone HCL 50 MG TABLET PO (00:13)
--- NOTE | 2022-11-16 00:16 | PC.NURSE ---
additional benadryl 200 mg po now ordered for thickened tongue. refused other alternatives including propranolol, cogentin. reports use of benadryl 200 mg po at home 6-8 hours when needed and uses frequently. used term ''tachyphlaxis'' describing use at home when questioned about high dose and potential side effects from benadryl. is reporting sleep disturbance this evening.
[2022-11-16] MEDS: diphenhydrAMINE HCL 25 MG CAPSULE 200 MG PO (05:56)
[2022-11-16 06:45] VITALS: BP 122/78
[2022-11-16 08:45] VITALS: BMI 21.7
[2022-11-16] MEDS: amLODIPine Besylate 5 MG TABLET PO (09:08)
--- NOTE | 2022-11-16 12:23 | P.PNPSI_ITS ---
Subjective Subjective Date of Service: 11/16/22 Reason For Visit: Psychosis Subjective Notes: Section 7 Interim History: Pt more visible. She reports less restlessness. She denies SI/HI. no overt paranoid delusions. Pt visible on the unit and pleasant and cooperative. She is sleeping through the night. Medication Compliance: Yes Mental Status Exam Mental Status Exam Narrative: Appearance:wearing hospital gown, poor hygiene, in NAD Behavior: much less guarded, looking forward to meet with this freelance writer to discuss dc Psychomotor: No retardation or agitation noted TP:linear Speech:clear, regular rate/rhythm, volume, spontaneous Delusions:less paranoid delusions, eating more SI: denies HI: denies AH/VH: appears internally preoccupied Insight/judgment: improving x 2. Diagnostics Vital Signs (24Hr): Vital Signs - 24 hr 11/16/22 21:10 11/17/22 08:45 Pulse Rate 55 66 Respiratory Rate 14 16 Blood Pressure 101/60 126/84 Pulse Oximetry 96 96 Oxygen Delivery Method Room Air Room Air BMI result Body Mass Index 21.7 Medications Medications Current Medications Acetaminophen (Acetaminophen 325 Mg Tablet) 650 mg PO Q6H PRN PRN Reason: Headache/Pain Mild Scale (1-3) Al Hydroxide/Mg Hydroxide (Magnesium Hydrox/Alum Hydrox 30 Ml Oral.Susp) 30 ml PO Q6H PRN PRN Reason: Heartburn/Nausea Amlodipine Besylate (Amlodipine Besylate 5 Mg Tablet) 5 mg PO BID [facility]; Protocol Last Admin: 11/17/22 09:03 Dose: 5 mg Diphenhydramine HCl (Diphenhydramine Hcl 25 Mg Capsule) 100 mg PO Q8H PRN PRN Reason: Restlessness Last Admin: 11/17/22 18:47 Dose: 100 mg Fluphenazine Decanoate (Fluphenazine Decanoate 25 Mg/Ml 5 Ml Vial) 25 mg IM Q14D@0900 [facility] Last Admin: 11/07/22 10:01 Dose: 25 mg Magnesium Hydroxide (Milk Of Magnesia 30 Ml Oral.Susp) 30 ml PO DAILY PRN PRN Reason: Constipation Propranolol HCl (Propranolol Hcl 10 Mg Tablet) 10 mg PO QID PRN; Protocol PRN Reason: restlessness Last Admin: 11/14/22 11:30 Dose: 10 mg Trazodone HCl (Trazodone Hcl 50 Mg Tablet) 50 mg PO BEDTIME PRN PRN Reason: Insomnia Last Admin: 11/16/22 00:13 Dose: 50 mg Allergies Allergies Allergy/AdvReac Type Severity Reaction Status Date / Time cashew nut Allergy Severe ANAPHYLAXIS Verified 01/31/22 11:11 peanut [Peanut] Allergy Severe ANAPHALAXIS Verified 01/31/22 11:11 Assessment & Plan Assessment & Plan (1) Schizophrenia: Status: Chronic Code(s): F20.9 - Schizophrenia, unspecified Plan Ms. Guillaume is a 62 year-old woman with hx of schizophrenia. She was last psychiatrically admitted to on 10/2021 and discharged on prolixin 25mg IM [id number]. It appears that pt stopped prolixin about 4 months and gradually has been decompensating, presenting more paranoid and suspicious. She was found wondering on streets wearing mostly just bath rope, presented as paranoid. She was brought to [facility]- found to have hypertensive crisis, elevated TSH, refusing to eat because she believes food is poisoned, declining to have HTN treatment stating that there was cocaine in the water of the hospital. Pt given prolixin 12.5mg IM on 10/24/2022, next prolixin dose due on 11/07/22- higher dose of 25mg [id number]. This freelance writer saw pt while at [facility]. She appears now slightly more catatonic features including mutism, negativism along with underlying paranoid and persecutor delusions. PLAN 1. Admit on M3, Sect 12b, 15 minutes checks 2. Next prolixin 25mg IM [id number] due on 11/07/22- supposed to supplement with oral prolixin as there is 2 week delay onset. Back up haldol if refuses prolixin but pt with s/s of catatonia, may give ativan 3. Obtain collateral information from [place]- brother and guardian [phone]. 4. After care planning. 11/02- continue current medication. on sect 12, will file. 11/03 petition for sec 8 filed, pt now on section 7. continue current medication per joselyn's pt scheduled to received prolixin 25mg IM on 11/07/2022. 11/04 contnue current treatment plan 5 min checks 11/05 continue current treatment plan 11/06 continue current tx. Next prolixin Dec 25mg IM due tomorrow, will d/c oral prolixin by then. 11/07 received prolixin 25mg IM today, next one due on 11/21/2022. 11/08 continue tx. 11/09 continue tx. 11/10 continue tx. 11/11 continue tx. 11/12 continue tx. 11/13 continue tx. 11/14 added propanolol 10mg po QID prn akathesia (pt declined to schedule it), benadryl 100mg po q8h prn for same. pt declined ativan or cogentin. 11/15 continue tx. 11/16 continue tx. Reason for contiued inpatient stay Substantial Risk for: inability to function Time Spent With Patient Time: Total time managing care of this patient today ____ minutes.
[2022-11-16 21:10] VITALS: BP 101/60; PULSE 55; RESP 14; O2SAT 96
--- NOTE | 2022-11-17 07:00 | ECG_ITS ---
Test Reason : QTC Blood Pressure : / mmHG Vent. Rate : 055 BPM Atrial Rate : 055 BPM P-R Int : 156 ms QRS Dur : 090 ms QT Int : 438 ms P-R-T Axes : 053 -21 037 degrees QTc Int : 419 ms Sinus bradycardia Minimal voltage criteria for LVH, may be normal variant ( Ganga product ) Borderline ECG When compared with ECG of 22-SEP-2021 20:39, Vent. rate has decreased BY 29 BPM QT has shortened Referred By: Nataliya Maynard Electronically Signed By:SAW BERUMEN
[2022-11-17 08:45] VITALS: BP 126/84; PULSE 66; RESP 16; O2SAT 96
[2022-11-17] MEDS: amLODIPine Besylate 5 MG TABLET PO ×2 (09:03→21:29)
[2022-11-17] MEDS: diphenhydrAMINE HCL 25 MG CAPSULE 100 MG PO ×2 (10:10→18:47)
--- NOTE | 2022-11-17 14:25 | P.PNPSI_ITS ---
Subjective Subjective Date of Service: 11/17/22 Reason For Visit: Psychosis Subjective Notes: Section 7 Interim History: Pt more visible and pleasant on approach. She reports less restlessness, less need for benadryl and understands dose has to be limited to 300mg/day. She denies SI/HI. no overt paranoid delusions. Pt visible on the unit and pleasant and cooperative. She is sleeping through the night. involuntary movement of upper extremities, but no tapping. Less swollen of tongue. Medication Compliance: Yes Mental Status Exam Mental Status Exam Narrative: Appearance:wearing hospital gown, poor hygiene, in NAD Behavior: much less guarded, looking forward to meet with this automotive service writer to discuss dc Psychomotor: No retardation or agitation noted TP:linear Speech:clear, regular rate/rhythm, volume, spontaneous Delusions:less paranoid delusions, eating more SI: denies HI: denies AH/VH: appears internally preoccupied Insight/judgment: improving x 2. Diagnostics Vital Signs (24Hr): Vital Signs - 24 hr 11/16/22 21:10 11/17/22 08:45 Pulse Rate 55 66 Respiratory Rate 14 16 Blood Pressure 101/60 126/84 Pulse Oximetry 96 96 Oxygen Delivery Method Room Air Room Air BMI result Body Mass Index 21.7 Medications Medications Current Medications Acetaminophen (Acetaminophen 325 Mg Tablet) 650 mg PO Q6H PRN PRN Reason: Headache/Pain Mild Scale (1-3) Al Hydroxide/Mg Hydroxide (Magnesium Hydrox/Alum Hydrox 30 Ml Oral.Susp) 30 ml PO Q6H PRN PRN Reason: Heartburn/Nausea Amlodipine Besylate (Amlodipine Besylate 5 Mg Tablet) 5 mg PO BID [facility]; Protocol Last Admin: 11/17/22 09:03 Dose: 5 mg Diphenhydramine HCl (Diphenhydramine Hcl 25 Mg Capsule) 100 mg PO Q8H PRN PRN Reason: Restlessness Last Admin: 11/17/22 18:47 Dose: 100 mg Fluphenazine Decanoate (Fluphenazine Decanoate 25 Mg/Ml 5 Ml Vial) 25 mg IM Q14D@0900 [facility] Last Admin: 11/07/22 10:01 Dose: 25 mg Magnesium Hydroxide (Milk Of Magnesia 30 Ml Oral.Susp) 30 ml PO DAILY PRN PRN Reason: Constipation Propranolol HCl (Propranolol Hcl 10 Mg Tablet) 10 mg PO QID PRN; Protocol PRN Reason: restlessness Last Admin: 11/14/22 11:30 Dose: 10 mg Trazodone HCl (Trazodone Hcl 50 Mg Tablet) 50 mg PO BEDTIME PRN PRN Reason: Insomnia Last Admin: 11/16/22 00:13 Dose: 50 mg Allergies Allergies Allergy/AdvReac Type Severity Reaction Status Date / Time cashew nut Allergy Severe ANAPHYLAXIS Verified 01/31/22 11:11 peanut [Peanut] Allergy Severe ANAPHALAXIS Verified 01/31/22 11:11 Assessment & Plan Assessment & Plan (1) Schizophrenia: Status: Chronic Code(s): F20.9 - Schizophrenia, unspecified Plan Ms. Guillaume is a 62 year-old woman with hx of schizophrenia. She was last psychiatrically admitted to on 10/2021 and discharged on prolixin 25mg IM [id number]. It appears that pt stopped prolixin about 4 months and gradually has been decompensating, presenting more paranoid and suspicious. She was found wondering on streets wearing mostly just bath rope, presented as paranoid. She was brought to [facility]- found to have hypertensive crisis, elevated TSH, refusing to eat because she believes food is poisoned, declining to have HTN treatment stating that there was cocaine in the water of the hospital. Pt given prolixin 12.5mg IM on 10/24/2022, next prolixin dose due on 11/07/22- higher dose of 25mg [id number]. This automotive service writer saw pt while at [facility]. She appears now slightly more catatonic features including mutism, negativism along with underlying paranoid and persecutor delusions. PLAN 1. Admit on M3, Sect 12b, 15 minutes checks 2. Next prolixin 25mg IM [id number] due on 11/07/22- supposed to supplement with oral prolixin as there is 2 week delay onset. Back up haldol if refuses prolixin but pt with s/s of catatonia, may give ativan 3. Obtain collateral information from [place]- brother and guardian [phone]. 4. After care planning. 11/02- continue current medication. on sect 12, will file. 11/03 petition for sec 8 filed, pt now on section 7. continue current medication per joselyn's pt scheduled to received prolixin 25mg IM on 11/07/2022. 11/04 contnue current treatment plan 5 min checks 11/05 continue current treatment plan 11/06 continue current tx. Next prolixin Dec 25mg IM due tomorrow, will d/c oral prolixin by then. 11/07 received prolixin 25mg IM today, next one due on 11/21/2022. 11/08 continue tx. 11/09 continue tx. 11/10 continue tx. 11/11 continue tx. 11/12 continue tx. 11/13 continue tx. 11/14 added propanolol 10mg po QID prn akathesia (pt declined to schedule it), benadryl 100mg po q8h prn for same. pt declined ativan or cogentin. 11/15 continue tx. 11/16 continue tx. 11/17 continue tx. Reason for contiued inpatient stay Substantial Risk for: inability to function Time Spent With Patient Time: Total time managing care of this patient today ____ minutes.
[2022-11-17 21:20] VITALS: BP 137/75; PULSE 60; RESP 16; TEMP 36.6; O2SAT 99
[2022-11-18 08:00] VITALS: BP 129/80; PULSE 64; RESP 18; TEMP 36.7; O2SAT 99
[2022-11-18] MEDS: diphenhydrAMINE HCL 25 MG CAPSULE 100 MG PO ×2 (08:51→18:13)
[2022-11-18] MEDS: amLODIPine Besylate 5 MG TABLET PO ×2 (08:52→20:49)
--- NOTE | 2022-11-18 13:40 | PC.NURSE ---
Vaishali requsted to have her blood pressure taken , because she stated shes had a lot of coffee today. BP was 138/72P 72 R18 o2 sat 100%. I observed EPS in left extremity . Which consisted of her moving her fingers in a wave motion.
[2022-11-18 18:00] VITALS: BP 118/64; PULSE 58; RESP 16; TEMP 36.7; O2SAT 97
--- NOTE | 2022-11-18 21:19 | P.PNPSI_ITS ---
Subjective Subjective Date of Service: 11/18/22 Reason For Visit: Psychosis Interim History: no needs or concerns or questions. per staff denies psych Sx, withdrawn. active, appropriate. concern regarding possible TD. getting benadryl 100 mg Q8H PRN. Mental Status Exam Mental Status Exam Narrative: Appearance:wearing hospital gown, poor hygiene, in NAD Behavior: much less guarded Psychomotor: No retardation or agitation noted TP:linear Speech:clear, regular rate/rhythm, volume, spontaneous Delusions:less paranoid delusions, eating more SI: denies HI: denies AH/VH: appears internally preoccupied Insight/judgment: improving x 2. Diagnostics Vital Signs (24Hr): Vital Signs - 24 hr 11/17/22 21:20 11/18/22 08:00 11/18/22 18:00 Temperature 97.9 F 98.1 F 98.0 F Pulse Rate 60 64 58 Respiratory Rate 16 18 16 Blood Pressure 137/75 129/80 118/64 Pulse Oximetry 99 99 97 Oxygen Delivery Method Room Air Room Air Room Air BMI result Body Mass Index 21.7 Medications Medications Current Medications Acetaminophen (Acetaminophen 325 Mg Tablet) 650 mg PO Q6H PRN PRN Reason: Headache/Pain Mild Scale (1-3) Al Hydroxide/Mg Hydroxide (Magnesium Hydrox/Alum Hydrox 30 Ml Oral.Susp) 30 ml PO Q6H PRN PRN Reason: Heartburn/Nausea Amlodipine Besylate (Amlodipine Besylate 5 Mg Tablet) 5 mg PO BID [facility]; Protocol Last Admin: 11/18/22 20:49 Dose: 5 mg Diphenhydramine HCl (Diphenhydramine Hcl 25 Mg Capsule) 100 mg PO Q8H PRN PRN Reason: Restlessness Last Admin: 11/18/22 18:13 Dose: 100 mg Fluphenazine Decanoate (Fluphenazine Decanoate 25 Mg/Ml 5 Ml Vial) 25 mg IM Q14D@0900 [facility] Last Admin: 11/07/22 10:01 Dose: 25 mg Magnesium Hydroxide (Milk Of Magnesia 30 Ml Oral.Susp) 30 ml PO DAILY PRN PRN Reason: Constipation Propranolol HCl (Propranolol Hcl 10 Mg Tablet) 10 mg PO QID PRN; Protocol PRN Reason: restlessness Last Admin: 11/14/22 11:30 Dose: 10 mg Trazodone HCl (Trazodone Hcl 50 Mg Tablet) 50 mg PO BEDTIME PRN PRN Reason: Insomnia Last Admin: 11/16/22 00:13 Dose: 50 mg Allergies Allergies Allergy/AdvReac Type Severity Reaction Status Date / Time cashew nut Allergy Severe ANAPHYLAXIS Verified 01/31/22 11:11 peanut [Peanut] Allergy Severe ANAPHALAXIS Verified 01/31/22 11:11 Assessment & Plan Assessment & Plan (1) Schizophrenia: Status: Chronic Code(s): F20.9 - Schizophrenia, unspecified Plan Ms. Guillaume is a 62 year-old woman with hx of schizophrenia. She was last psychiatrically admitted to on 10/2021 and discharged on prolixin 25mg IM [id number]. It appears that pt stopped prolixin about 4 months and gradually has been decompensating, presenting more paranoid and suspicious. She was found wondering on streets wearing mostly just bath rope, presented as paranoid. She was brought to [facility]- found to have hypertensive crisis, elevated TSH, refusing to eat because she believes food is poisoned, declining to have HTN treatment stating that there was cocaine in the water of the hospital. Pt given prolixin 12.5mg IM on 10/24/2022, next prolixin dose due on 11/07/22- higher dose of 25mg [id number]. This justowriter operator saw pt while at [facility]. She appears now slightly more catatonic features including mutism, negativism along with underlying paranoid and persecutor delusions. PLAN 1. Admit on M3, Sect 12b, 15 minutes checks 2. Next prolixin 25mg IM [id number] due on 11/07/22- supposed to supplement with oral prolixin as there is 2 week delay onset. Back up haldol if refuses prolixin but pt with s/s of catatonia, may give ativan 3. Obtain collateral information from [place]- brother and guardian [phone]. 4. After care planning. 11/02- continue current medication. on sect 12, will file. 11/03 petition for sec 8 filed, pt now on section 7. continue current medication per joselyn's pt scheduled to received prolixin 25mg IM on 11/07/2022. 11/04 contnue current treatment plan 5 min checks 11/05 continue current treatment plan 11/06 continue current tx. Next prolixin Dec 25mg IM due tomorrow, will d/c oral prolixin by then. 11/07 received prolixin 25mg IM today, next one due on 11/21/2022. 11/08 continue tx. 11/09 continue tx. 11/10 continue tx. 11/11 continue tx. 11/12 continue tx. 11/13 continue tx. 11/14 added propanolol 10mg po QID prn akathesia (pt declined to schedule it), benadryl 100mg po q8h prn for same. pt declined ativan or cogentin. 11/15 continue tx. 11/16 continue tx. 11/17 continue tx. 11/18: no change in mgmt. some staff concern re involuntary mvmts of hand/arm. Reason for contiued inpatient stay Substantial Risk for: inability to function and rapid decompensation Time Spent With Patient Time: Total time managing care of this patient today __15__ minutes.
[2022-11-19] MEDS: diphenhydrAMINE HCL 25 MG CAPSULE 100 MG PO ×2 (06:44→14:43)
[2022-11-19 08:00] VITALS: BP 152/84; PULSE 60; RESP 18; TEMP 36.8; O2SAT 100
[2022-11-19] MEDS: amLODIPine Besylate 5 MG TABLET PO ×2 (08:37→21:49)
--- NOTE | 2022-11-19 16:56 | HO.PSYCHPN ---
Subjective Subjective Date of Service: 11/19/22 Reason For Visit: Psychosis Interim History: no questions or complaints or requests. per staff, plesant, isolative. somewhat engaged. EPS in right hand/arm. taking meds and meals. slept well. Mental Status Exam Mental Status Exam Narrative: Appearance:wearing hospital gown, poor hygiene, in NAD Behavior: much less guarded Psychomotor: No retardation or agitation noted TP:linear Speech:clear, regular rate/rhythm, volume, spontaneous Delusions:less paranoid delusions, eating more SI: denies HI: denies AH/VH: appears internally preoccupied Insight/judgment: improving x 2. Diagnostics Vital Signs (24Hr): Vital Signs - 24 hr 11/18/22 18:00 11/19/22 08:00 Temperature 98.0 F 98.2 F Pulse Rate 58 60 Respiratory Rate 16 18 Blood Pressure 118/64 152/84 H Pulse Oximetry 97 100 Oxygen Delivery Method Room Air Room Air BMI result Body Mass Index 21.7 Medications Medications Current Medications Acetaminophen (Acetaminophen 325 Mg Tablet) 650 mg PO Q6H PRN PRN Reason: Headache/Pain Mild Scale (1-3) Al Hydroxide/Mg Hydroxide (Magnesium Hydrox/Alum Hydrox 30 Ml Oral.Susp) 30 ml PO Q6H PRN PRN Reason: Heartburn/Nausea Amlodipine Besylate (Amlodipine Besylate 5 Mg Tablet) 5 mg PO BID [facility]; Protocol Last Admin: 11/19/22 08:37 Dose: 5 mg Diphenhydramine HCl (Diphenhydramine Hcl 25 Mg Capsule) 100 mg PO Q8H PRN PRN Reason: Restlessness Last Admin: 11/19/22 14:43 Dose: 100 mg Fluphenazine Decanoate (Fluphenazine Decanoate 25 Mg/Ml 5 Ml Vial) 25 mg IM Q14D@0900 [facility] Last Admin: 11/07/22 10:01 Dose: 25 mg Magnesium Hydroxide (Milk Of Magnesia 30 Ml Oral.Susp) 30 ml PO DAILY PRN PRN Reason: Constipation Propranolol HCl (Propranolol Hcl 10 Mg Tablet) 10 mg PO QID PRN; Protocol PRN Reason: restlessness Last Admin: 11/14/22 11:30 Dose: 10 mg Trazodone HCl (Trazodone Hcl 50 Mg Tablet) 50 mg PO BEDTIME PRN PRN Reason: Insomnia Last Admin: 11/16/22 00:13 Dose: 50 mg Allergies Allergies Allergy/AdvReac Type Severity Reaction Status Date / Time cashew nut Allergy Severe ANAPHYLAXIS Verified 01/31/22 11:11 peanut [Peanut] Allergy Severe ANAPHALAXIS Verified 01/31/22 11:11 Assessment & Plan Assessment & Plan (1) Schizophrenia: Status: Chronic Code(s): F20.9 - Schizophrenia, unspecified Plan Ms. Guillaume is a 62 year-old woman with hx of schizophrenia. She was last psychiatrically admitted to on 10/2021 and discharged on prolixin 25mg IM [id number]. It appears that pt stopped prolixin about 4 months and gradually has been decompensating, presenting more paranoid and suspicious. She was found wondering on streets wearing mostly just bath rope, presented as paranoid. She was brought to [facility]- found to have hypertensive crisis, elevated TSH, refusing to eat because she believes food is poisoned, declining to have HTN treatment stating that there was cocaine in the water of the hospital. Pt given prolixin 12.5mg IM on 10/24/2022, next prolixin dose due on 11/07/22- higher dose of 25mg [id number]. This typewriter ribbon winder saw pt while at [facility]. She appears now slightly more catatonic features including mutism, negativism along with underlying paranoid and persecutor delusions. PLAN 1. Admit on M3, Sect 12b, 15 minutes checks 2. Next prolixin 25mg IM [id number] due on 11/07/22- supposed to supplement with oral prolixin as there is 2 week delay onset. Back up haldol if refuses prolixin but pt with s/s of catatonia, may give ativan 3. Obtain collateral information from [place]- brother and guardian [phone]. 4. After care planning. 11/02- continue current medication. on sect 12, will file. 11/03 petition for sec 8 filed, pt now on section 7. continue current medication per joselyn's pt scheduled to received prolixin 25mg IM on 11/07/2022. 11/04 contnue current treatment plan 5 min checks 11/05 continue current treatment plan 11/06 continue current tx. Next prolixin Dec 25mg IM due tomorrow, will d/c oral prolixin by then. 11/07 received prolixin 25mg IM today, next one due on 11/21/2022. 11/08 continue tx. 11/09 continue tx. 11/10 continue tx. 11/11 continue tx. 11/12 continue tx. 11/13 continue tx. 11/14 added propanolol 10mg po QID prn akathesia (pt declined to schedule it), benadryl 100mg po q8h prn for same. pt declined ativan or cogentin. 11/15 continue tx. 11/16 continue tx. 11/17 continue tx. 11/18: no change in mgmt. some staff concern re involuntary mvmts of hand/arm. 11/19: no change in mgmt. some staff concern re involuntary mvmts of hand/arm. Reason for contiued inpatient stay Substantial Risk for: inability to function and rapid decompensation Time Spent With Patient Time: Total time managing care of this patient today ____ minutes.
[2022-11-19 21:48] VITALS: BP 112/64; PULSE 55; RESP 16; TEMP 36.6; O2SAT 98
[2022-11-20] MEDS: diphenhydrAMINE HCL 25 MG CAPSULE 100 MG PO ×2 (07:07→14:59)
[2022-11-20 09:04] VITALS: BP 130/90; PULSE 62; RESP 16; O2SAT 99
[2022-11-20] MEDS: amLODIPine Besylate 5 MG TABLET PO ×2 (09:05→20:25)
[2022-11-20] MEDS: Benztropine Mesylate 1 MG TABLET PO (11:52)
--- NOTE | 2022-11-20 15:14 | P.PNPSI_ITS ---
Subjective Subjective Date of Service: 11/20/22 Reason For Visit: Psychosis Interim History: no questions or complaints, no change in presentation. per staff, denies psychosis. c/o bruxism. safe. broken sleep 2/2 roommate's nocturnal activity. not attending groups. med and meal compliant. c/o EPS in hands. Mental Status Exam Mental Status Exam Narrative: Appearance:wearing hospital gown, poor hygiene, in NAD Behavior: much less guarded Psychomotor: No retardation or agitation noted TP:linear Speech:clear, regular rate/rhythm, volume, spontaneous Delusions:less paranoid delusions, eating more SI: denies HI: denies AH/VH: appears internally preoccupied Insight/judgment: improving x 2. Diagnostics Vital Signs (24Hr): Vital Signs - 24 hr 11/19/22 21:48 11/20/22 09:04 Temperature 97.8 F Pulse Rate 55 62 Respiratory Rate 16 16 Blood Pressure 112/64 130/90 H Pulse Oximetry 98 99 Oxygen Delivery Method Room Air Room Air BMI result Body Mass Index 21.7 Medications Medications Current Medications Acetaminophen (Acetaminophen 325 Mg Tablet) 650 mg PO Q6H PRN PRN Reason: Headache/Pain Mild Scale (1-3) Al Hydroxide/Mg Hydroxide (Magnesium Hydrox/Alum Hydrox 30 Ml Oral.Susp) 30 ml PO Q6H PRN PRN Reason: Heartburn/Nausea Amlodipine Besylate (Amlodipine Besylate 5 Mg Tablet) 5 mg PO BID [facility]; Protocol Last Admin: 11/20/22 09:05 Dose: 5 mg Benztropine Mesylate (Benztropine Mesylate 1 Mg Tablet) 1 mg PO TID PRN PRN Reason: Extrapyramidal Effects Last Admin: 11/20/22 11:52 Dose: 1 mg Diphenhydramine HCl (Diphenhydramine Hcl 25 Mg Capsule) 100 mg PO Q8H PRN PRN Reason: Restlessness Last Admin: 11/20/22 14:59 Dose: 100 mg Fluphenazine Decanoate (Fluphenazine Decanoate 25 Mg/Ml 5 Ml Vial) 25 mg IM Q14D@0900 [facility] Last Admin: 11/07/22 10:01 Dose: 25 mg Magnesium Hydroxide (Milk Of Magnesia 30 Ml Oral.Susp) 30 ml PO DAILY PRN PRN Reason: Constipation Propranolol HCl (Propranolol Hcl 10 Mg Tablet) 10 mg PO QID PRN; Protocol PRN Reason: restlessness Last Admin: 11/14/22 11:30 Dose: 10 mg Trazodone HCl (Trazodone Hcl 50 Mg Tablet) 50 mg PO BEDTIME PRN PRN Reason: Insomnia Last Admin: 11/16/22 00:13 Dose: 50 mg Allergies Allergies Allergy/AdvReac Type Severity Reaction Status Date / Time cashew nut Allergy Severe ANAPHYLAXIS Verified 01/31/22 11:11 peanut [Peanut] Allergy Severe ANAPHALAXIS Verified 01/31/22 11:11 Assessment & Plan Assessment & Plan (1) Schizophrenia: Status: Chronic Code(s): F20.9 - Schizophrenia, unspecified Plan Ms. Guillaume is a 62 year-old woman with hx of schizophrenia. She was last psychiatrically admitted to on 10/2021 and discharged on prolixin 25mg IM [id number]. It appears that pt stopped prolixin about 4 months and gradually has been decompensating, presenting more paranoid and suspicious. She was found wondering on streets wearing mostly just bath rope, presented as paranoid. She was brought to [facility]- found to have hypertensive crisis, elevated TSH, refusing to eat because she believes food is poisoned, declining to have HTN treatment stating that there was cocaine in the water of the hospital. Pt given prolixin 12.5mg IM on 10/24/2022, next prolixin dose due on 11/07/22- higher dose of 25mg [id number]. This residential mortgage underwriter saw pt while at [facility]. She appears now slightly more catatonic features including mutism, negativism along with underlying paranoid and persecutor delusions. PLAN 1. Admit on M3, Sect 12b, 15 minutes checks 2. Next prolixin 25mg IM [id number] due on 11/07/22- supposed to supplement with oral prolixin as there is 2 week delay onset. Back up haldol if refuses prolixin but pt with s/s of catatonia, may give ativan 3. Obtain collateral information from [place]- brother and guardian [phone]. 4. After care planning. 11/02- continue current medication. on sect 12, will file. 11/03 petition for sec 8 filed, pt now on section 7. continue current medication per joselyn's pt scheduled to received prolixin 25mg IM on 11/07/2022. 11/04 contnue current treatment plan 5 min checks 11/05 continue current treatment plan 11/06 continue current tx. Next prolixin Dec 25mg IM due tomorrow, will d/c oral prolixin by then. 11/07 received prolixin 25mg IM today, next one due on 11/21/2022. 11/08 continue tx. 11/09 continue tx. 11/10 continue tx. 11/11 continue tx. 11/12 continue tx. 11/13 continue tx. 11/14 added propanolol 10mg po QID prn akathesia (pt declined to schedule it), benadryl 100mg po q8h prn for same. pt declined ativan or cogentin. 11/15 continue tx. 11/16 continue tx. 11/17 continue tx. 11/18: no change in mgmt. some staff concern re involuntary mvmts of hand/arm. 11/19: no change in mgmt. some staff concern re involuntary mvmts of hand/arm. 11/20: no change in mgmt. some staff concern re involuntary mvmts of hand/arm. Reason for contiued inpatient stay Substantial Risk for: inability to function and rapid decompensation Time Spent With Patient Time: Total time managing care of this patient today ____ minutes.
[2022-11-20 18:00] VITALS: BP 177/84; PULSE 60; RESP 18; TEMP 36.7; O2SAT 95
[2022-11-20 18:31] VITALS: BP 159/73
[2022-11-20 20:30] VITALS: BP 140/92
[2022-11-21] MEDS: diphenhydrAMINE HCL 25 MG CAPSULE 100 MG PO ×2 (06:36→14:20)
[2022-11-21] MEDS: fluPHENAZine decanoate 25 MG/ML 5 ML VIAL IM (08:49)
[2022-11-21] MEDS: amLODIPine Besylate 5 MG TABLET PO ×2 (08:50→21:20)
[2022-11-21 08:53] VITALS: BP 122/64; PULSE 66; RESP 16; O2SAT 98
--- NOTE | 2022-11-21 14:37 | P.PNPSI_ITS ---
Subjective Subjective Date of Service: 11/21/22 Reason For Visit: Psychosis Subjective Notes: Section 7 Interim History: Pt reports sleeping and eating well. She denies SI/HI. She reports some restlessness, taking benadryl. She reports cogentin not helpful for restlessness or involuntary movement of upper extremities. Pt pleasant, superficial at times. She is eating well. Medication Compliance: Yes Side effects from medications: Yes (involuntary upper movements. No tapping of feet.) Attending Groups: No Review of Systems Acute medical concerns: No Mental Status Exam Mental Status Exam Narrative: Appearance:wearing hospital gown, poor hygiene, in NAD Behavior: much less guarded Psychomotor: No retardation or agitation noted TP:linear Speech:clear, regular rate/rhythm, volume, spontaneous Delusions:less paranoid delusions, eating more SI: denies HI: denies AH/VH: appears internally preoccupied Insight/judgment: improving x 2. Diagnostics Vital Signs (24Hr): Vital Signs - 24 hr 11/20/22 18:00 11/20/22 18:31 11/20/22 20:30 Temperature 98.1 F Pulse Rate 60 Respiratory Rate 18 Blood Pressure 177/84 H 159/73 H 140/92 H Pulse Oximetry 95 Oxygen Delivery Method Room Air 11/21/22 08:53 Temperature Pulse Rate 66 Respiratory Rate 16 Blood Pressure 122/64 Pulse Oximetry 98 Oxygen Delivery Method Room Air BMI result Body Mass Index 21.7 Medications Medications Current Medications Acetaminophen (Acetaminophen 325 Mg Tablet) 650 mg PO Q6H PRN PRN Reason: Headache/Pain Mild Scale (1-3) Al Hydroxide/Mg Hydroxide (Magnesium Hydrox/Alum Hydrox 30 Ml Oral.Susp) 30 ml PO Q6H PRN PRN Reason: Heartburn/Nausea Amlodipine Besylate (Amlodipine Besylate 5 Mg Tablet) 5 mg PO BID [facility]; Protocol Last Admin: 11/21/22 08:50 Dose: 5 mg Benztropine Mesylate (Benztropine Mesylate 1 Mg Tablet) 1 mg PO TID PRN PRN Reason: Extrapyramidal Effects Last Admin: 11/20/22 11:52 Dose: 1 mg Diphenhydramine HCl (Diphenhydramine Hcl 25 Mg Capsule) 100 mg PO Q8H PRN PRN Reason: Restlessness Last Admin: 11/21/22 14:20 Dose: 100 mg Fluphenazine Decanoate (Fluphenazine Decanoate 25 Mg/Ml 5 Ml Vial) 25 mg IM Q14D@0900 [facility] Last Admin: 11/21/22 08:49 Dose: 25 mg Magnesium Hydroxide (Milk Of Magnesia 30 Ml Oral.Susp) 30 ml PO DAILY PRN PRN Reason: Constipation Propranolol HCl (Propranolol Hcl 10 Mg Tablet) 10 mg PO QID PRN; Protocol PRN Reason: restlessness Last Admin: 11/14/22 11:30 Dose: 10 mg Trazodone HCl (Trazodone Hcl 50 Mg Tablet) 50 mg PO BEDTIME PRN PRN Reason: Insomnia Last Admin: 11/16/22 00:13 Dose: 50 mg Allergies Allergies Allergy/AdvReac Type Severity Reaction Status Date / Time cashew nut Allergy Severe ANAPHYLAXIS Verified 01/31/22 11:11 peanut [Peanut] Allergy Severe ANAPHALAXIS Verified 01/31/22 11:11 Assessment & Plan Assessment & Plan (1) Schizophrenia: Status: Chronic Code(s): F20.9 - Schizophrenia, unspecified Plan Ms. Guillaume is a 62 year-old woman with hx of schizophrenia. She was last psychiatrically admitted to on 10/2021 and discharged on prolixin 25mg IM [id number]. It appears that pt stopped prolixin about 4 months and gradually has been decompensating, presenting more paranoid and suspicious. She was found wondering on streets wearing mostly just bath rope, presented as paranoid. She was brought to [facility]- found to have hypertensive crisis, elevated TSH, refusing to eat because she believes food is poisoned, declining to have HTN treatment stating that there was cocaine in the water of the hospital. Pt given prolixin 12.5mg IM on 10/24/2022, next prolixin dose due on 11/07/22- higher dose of 25mg [id number]. This loan underwriter saw pt while at [facility]. She appears now slightly more catatonic features including mutism, negativism along with underlying paranoid and persecutor delusions. PLAN 1. Admit on M3, Sect 12b, 15 minutes checks 2. Next prolixin 25mg IM [id number] due on 11/07/22- supposed to supplement with o ral prolixin as there is 2 week delay onset. Back up haldol if refuses prolixin but pt with s/s of catatonia, may give ativan 3. Obtain collateral information from [place]- brother and guardian [phone]. 4. After care planning. 11/02- continue current medication. on sect 12, will file. 11/03 petition for sec 8 filed, pt now on section 7. continue current medication per joselyn's pt scheduled to received prolixin 25mg IM on 11/07/2022. 11/04 contnue current treatment plan 5 min checks 11/05 continue current treatment plan 11/06 continue current tx. Next prolixin Dec 25mg IM due tomorrow, will d/c oral prolixin by then. 11/07 received prolixin 25mg IM today, next one due on 11/21/2022. 11/08 continue tx. 11/09 continue tx. 11/10 continue tx. 11/11 continue tx. 11/12 continue tx. 11/13 continue tx. 11/14 added propanolol 10mg po QID prn akathesia (pt declined to schedule it), benadryl 100mg po q8h prn for same. pt declined ativan or cogentin. 11/15 continue tx. 11/16 continue tx. 11/17 continue tx. 11/18: no change in mgmt. some staff concern re involuntary mvmts of hand/arm. 11/19: no change in mgmt. some staff concern re involuntary mvmts of hand/arm. 11/20: no change in mgmt. some staff concern re involuntary mvmts of hand/arm. 11/21 continue tx. Patient educated on: diagnosis and medication risk/benefits Guardian/Caregiver educated on: diagnosis and medication risk/benefits Informed Consent: understands Reason for contiued inpatient stay Substantial Risk for: inability to function Time Spent With Patient Time: Total time managing care of this patient today ____ minutes.
[2022-11-21 21:13] VITALS: BP 146/86; PULSE 60; RESP 16; TEMP 36.7; O2SAT 99
[2022-11-22] MEDS: amLODIPine Besylate 5 MG TABLET PO ×2 (07:57→20:14)
[2022-11-22] MEDS: diphenhydrAMINE HCL 25 MG CAPSULE 100 MG PO ×2 (07:57→15:48)
[2022-11-22 09:11] VITALS: BP 117/71; PULSE 58; TEMP 36.7; O2SAT 100
--- NOTE | 2022-11-22 13:08 | P.PNPSI_ITS ---
Subjective Subjective Date of Service: 11/22/22 Reason For Visit: Psychosis Subjective Notes: Section 7 Interim History: Pt sleeping and eating well. 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 Pt reports some restlessness and takes benadryl. She reports not feeling comfortable taking a shower here and has not showered since admission, somewhat malodurous. She denies SI/HI. Not aggressive towards self or others. We discussed staying on unit for further stabilization and monitoring of potential side effects, until next PETERSON dose in 2 weeks. Pt in agreement. Mental Status Exam Mental Status Exam Narrative: Appearance:wearing hospital gown, poor hygiene, in NAD Behavior: much less guarded Psychomotor: No retardation or agitation noted TP:linear Speech:clear, regular rate/rhythm, volume, spontaneous Delusions:less paranoid delusions, eating more SI: denies HI: denies AH/VH: appears internally preoccupied Insight/judgment: improving x 2. Diagnostics Vital Signs (24Hr): Vital Signs - 24 hr 11/22/22 09:11 11/22/22 20:12 11/23/22 08:07 Temperature 98.1 F 98.1 F 97.9 F Pulse Rate 58 60 64 Respiratory Rate 16 18 Blood Pressure 117/71 119/72 115/73 Pulse Oximetry 100 97 98 Oxygen Delivery Method Room Air Room Air Room Air BMI result Body Mass Index 21.7 Medications Medications Current Medications Acetaminophen (Acetaminophen 325 Mg Tablet) 650 mg PO Q6H PRN PRN Reason: Headache/Pain Mild Scale (1-3) Al Hydroxide/Mg Hydroxide (Magnesium Hydrox/Alum Hydrox 30 Ml Oral.Susp) 30 ml PO Q6H PRN PRN Reason: Heartburn/Nausea Amlodipine Besylate (Amlodipine Besylate 5 Mg Tablet) 5 mg PO BID [facility]; Protocol Last Admin: 11/23/22 08:01 Dose: 5 mg Benztropine Mesylate (Benztropine Mesylate 1 Mg Tablet) 1 mg PO TID PRN PRN Reason: Extrapyramidal Effects Last Admin: 11/20/22 11:52 Dose: 1 mg Diphenhydramine HCl (Diphenhydramine Hcl 25 Mg Capsule) 100 mg PO Q8H PRN PRN Reason: Restlessness Last Admin: 11/23/22 08:01 Dose: 100 mg Fluphenazine Decanoate (Fluphenazine Decanoate 25 Mg/Ml 5 Ml Vial) 25 mg IM Q14D@0900 [facility] Last Admin: 11/21/22 08:49 Dose: 25 mg Magnesium Hydroxide (Milk Of Magnesia 30 Ml Oral.Susp) 30 ml PO DAILY PRN PRN Reason: Constipation Propranolol HCl (Propranolol Hcl 10 Mg Tablet) 10 mg PO QID PRN; Protocol PRN Reason: restlessness Last Admin: 11/14/22 11:30 Dose: 10 mg Trazodone HCl (Trazodone Hcl 50 Mg Tablet) 50 mg PO BEDTIME PRN PRN Reason: Insomnia Last Admin: 11/16/22 00:13 Dose: 50 mg Allergies Allergies Allergy/AdvReac Type Severity Reaction Status Date / Time cashew nut Allergy Severe ANAPHYLAXIS Verified 01/31/22 11:11 peanut [Peanut] Allergy Severe ANAPHALAXIS Verified 01/31/22 11:11 Assessment & Plan Assessment & Plan (1) Schizophrenia: Status: Chronic Code(s): F20.9 - Schizophrenia, unspecified Plan Ms. Guillaume is a 62 year-old woman with hx of schizophrenia. She was last psychiatrically admitted to on 10/2021 and discharged on prolixin 25mg IM [id number]. It appears that pt stopped prolixin about 4 months and gradually has been decompensating, presenting more paranoid and suspicious. She was found wondering on streets wearing mostly just bath rope, presented as paranoid. She was brought to [facility]- found to have hypertensive crisis, elevated TSH, refusing to eat because she believes food is poisoned, declining to have HTN treatment stating that there was cocaine in the water of the hospital. Pt given prolixin 12.5mg IM on 10/24/2022, next prolixin dose due on 11/07/22- higher dose of 25mg [id number]. This investigative writer saw pt while at [facility]. She appears now slightly more catatonic features including mutism, negativism along with underlying paranoid and persecutor delusions. PLAN 1. Admit on M3, Sect 12b, 15 minutes checks 2. Next prolixin 25mg IM [id number] due on 11/07/22- supposed to supplement with oral prolixin as there is 2 week delay onset. Back up haldol if refuses prolixin but pt with s/s of catatonia, may give ativan 3. Obtain collateral information from [place]- brother and guardian [phone]. 4. After care planning. 11/02- continue current medication. on sect 12, will file. 11/03 petition for sec 8 filed, pt now on section 7. continue current medication per joselyn's pt scheduled to received prolixin 25mg IM on 11/07/2022. 11/04 contnue current treatment plan 5 min checks 11/05 continue current treatment plan 11/06 continue current tx. Next prolixin Dec 25mg IM due tomorrow, will d/c oral prolixin by then. 11/07 received prolixin 25mg IM today, next one due on 11/21/2022. 11/08 continue tx. 11/09 continue tx. 11/10 continue tx. 11/11 continue tx. 11/12 continue tx. 11/13 continue tx. 11/14 added propanolol 10mg po QID prn akathesia (pt declined to schedule it), benadryl 100mg po q8h prn for same. pt declined ativan or cogentin. 11/15 continue tx. 11/16 continue tx. 11/17 continue tx. 11/18: no change in mgmt. some staff concern re involuntary mvmts of hand/arm. 11/19: no change in mgmt. some staff concern re involuntary mvmts of hand/arm. 11/20: no change in mgmt. some staff concern re involuntary mvmts of hand/arm. 11/21 continue tx. 11/22 continue tx. Reason for contiued inpatient stay Substantial Risk for: inability to function Time Spent With Patient Time: Total time managing care of this patient today ____ minutes.
[2022-11-22 20:12] VITALS: BP 119/72; PULSE 60; RESP 16; TEMP 36.7; O2SAT 97
[2022-11-23 07:00] VITALS: BMI 21.7
[2022-11-23] MEDS: amLODIPine Besylate 5 MG TABLET PO ×2 (08:01→21:08)
[2022-11-23] MEDS: diphenhydrAMINE HCL 25 MG CAPSULE 100 MG PO ×2 (08:01→15:53)
[2022-11-23 08:07] VITALS: BP 115/73; PULSE 64; RESP 18; TEMP 36.6; O2SAT 98
--- NOTE | 2022-11-23 15:56 | HO.PSYCHPN ---
Subjective Subjective Date of Service: 11/23/22 Reason For Visit: Psychosis Interim History: calm, cooperative. reports fewer movements in her arms/hands today, as well as bruxism. hopeful to discharge soon. per staff, denies psych Sx. eating, sleeping well. not attending groups. restless. pacing, flat, terse. court continued to 11/30. Mental Status Exam Mental Status Exam Narrative: Appearance:wearing hospital gown, poor hygiene, in NAD Behavior: much less guarded Psychomotor: No retardation or agitation noted TP:linear Speech:clear, regular rate/rhythm, volume, spontaneous Delusions:less paranoid delusions, eating more SI: none expressed HI: none expressed AH/VH: none expressed Insight/judgment: improving x 2. Diagnostics Vital Signs (24Hr): Vital Signs - 24 hr 11/22/22 20:12 11/23/22 08:07 Temperature 98.1 F 97.9 F Pulse Rate 60 64 Respiratory Rate 16 18 Blood Pressure 119/72 115/73 Pulse Oximetry 97 98 Oxygen Delivery Method Room Air Room Air BMI result Body Mass Index 21.7 Medications Medications Current Medications Acetaminophen (Acetaminophen 325 Mg Tablet) 650 mg PO Q6H PRN PRN Reason: Headache/Pain Mild Scale (1-3) Al Hydroxide/Mg Hydroxide (Magnesium Hydrox/Alum Hydrox 30 Ml Oral.Susp) 30 ml PO Q6H PRN PRN Reason: Heartburn/Nausea Amlodipine Besylate (Amlodipine Besylate 5 Mg Tablet) 5 mg PO BID [facility]; Protocol Last Admin: 11/23/22 08:01 Dose: 5 mg Benztropine Mesylate (Benztropine Mesylate 1 Mg Tablet) 1 mg PO TID PRN PRN Reason: Extrapyramidal Effects Last Admin: 11/20/22 11:52 Dose: 1 mg Diphenhydramine HCl (Diphenhydramine Hcl 25 Mg Capsule) 100 mg PO Q8H PRN PRN Reason: Restlessness Last Admin: 11/23/22 15:53 Dose: 100 mg Fluphenazine Decanoate (Fluphenazine Decanoate 25 Mg/Ml 5 Ml Vial) 25 mg IM Q14D@0900 [facility] Last Admin: 11/21/22 08:49 Dose: 25 mg Magnesium Hydroxide (Milk Of Magnesia 30 Ml Oral.Susp) 30 ml PO DAILY PRN PRN Reason: Constipation Propranolol HCl (Propranolol Hcl 10 Mg Tablet) 10 mg PO QID PRN; Protocol PRN Reason: restlessness Last Admin: 11/14/22 11:30 Dose: 10 mg Trazodone HCl (Trazodone Hcl 50 Mg Tablet) 50 mg PO BEDTIME PRN PRN Reason: Insomnia Last Admin: 11/16/22 00:13 Dose: 50 mg Allergies Allergies Allergy/AdvReac Type Severity Reaction Status Date / Time cashew nut Allergy Severe ANAPHYLAXIS Verified 01/31/22 11:11 peanut [Peanut] Allergy Severe ANAPHALAXIS Verified 01/31/22 11:11 Assessment & Plan Assessment & Plan (1) Schizophrenia: Status: Chronic Code(s): F20.9 - Schizophrenia, unspecified Plan Ms. Guillaume is a 62 year-old woman with hx of schizophrenia. She was last psychiatrically admitted to on 10/2021 and discharged on prolixin 25mg IM [id number]. It appears that pt stopped prolixin about 4 months and gradually has been decompensating, presenting more paranoid and suspicious. She was found wondering on streets wearing mostly just bath rope, presented as paranoid. She was brought to [facility]- found to have hypertensive crisis, elevated TSH, refusing to eat because she believes food is poisoned, declining to have HTN treatment stating that there was cocaine in the water of the hospital. Pt given prolixin 12.5mg IM on 10/24/2022, next prolixin dose due on 11/07/22- higher dose of 25mg [id number]. This production underwriter saw pt while at [facility]. She appears now slightly more catatonic features including mutism, negativism along with underlying paranoid and persecutor delusions. PLAN 1. Admit on M3, Sect 12b, 15 minutes checks 2. Next prolixin 25mg IM [id number] due on 11/07/22- supposed to supplement with oral prolixin as there is 2 week delay onset. Back up haldol if refuses prolixin but pt with s/s of catatonia, may give ativan 3. Obtain collateral information from [place]- brother and guardian [phone]. 4. After care planning. 11/02- continue current medication. on sect 12, will file. 11/03 petition for sec 8 filed, pt now on section 7. continue current medication per joselyn's pt scheduled to received prolixin 25mg IM on 11/07/2022. 11/04 contnue current treatment plan 5 min checks 11/05 continue current treatment plan 11/06 continue current tx. Next prolixin Dec 25mg IM due tomorrow, will d/c oral prolixin by then. 11/07 received prolixin 25mg IM today, next one due on 11/21/2022. 11/08 continue tx. 11/09 continue tx. 11/10 continue tx. 11/11 continue tx. 11/12 continue tx. 11/13 continue tx. 11/14 added propanolol 10mg po QID prn akathesia (pt declined to schedule it), benadryl 100mg po q8h prn for same. pt declined ativan or cogentin. 11/15 continue tx. 11/16 continue tx. 11/17 continue tx. 11/18: no change in mgmt. some staff concern re involuntary mvmts of hand/arm. 11/19: no change in mgmt. some staff concern re involuntary mvmts of hand/arm. 11/20: no change in mgmt. some staff concern re involuntary mvmts of hand/arm. 11/21 continue tx. 11/22 continue tx. 11/23: continue current mgmt. Reason for contiued inpatient stay Substantial Risk for: inability to function and rapid decompensation Time Spent With Patient Time: Total time managing care of this patient today __15__ minutes.
[2022-11-23 21:06] VITALS: BP 124/68; PULSE 57; TEMP 36.7; O2SAT 98
[2022-11-23] MEDS: traZODone HCL 50 MG TABLET PO ×2 (21:08→22:15)
[2022-11-24 06:00] VITALS: BP 118/63; PULSE 49; RESP 18; TEMP 36.7; O2SAT 98
[2022-11-24] MEDS: amLODIPine Besylate 5 MG TABLET PO ×2 (09:08→22:03)
[2022-11-24] MEDS: diphenhydrAMINE HCL 25 MG CAPSULE 100 MG PO ×2 (10:28→22:02)
--- NOTE | 2022-11-24 14:43 | HO.PSYCHPN ---
Subjective Subjective Date of Service: 11/24/22 Reason For Visit: Psychosis Interim History: calm, cooperative. no complaints, but does acknowledge restlessness last night at HS. agrees to schedule benadryl 100 at HS to prevent disrupted sleep from akathisia. per staff, feels meds are working. decreased side effects perceived. not attending groups. DFA 2/2 restlessness. Mental Status Exam Mental Status Exam Narrative: Appearance:wearing hospital gown, fair hygiene, in NAD Behavior: much less guarded Psychomotor: No retardation or agitation noted TP:linear Speech:clear, regular rate/rhythm, volume, spontaneous Delusions:less paranoid delusions, eating more SI: none expressed HI: none expressed AH/VH: none expressed Insight/judgment: improving x 2. Diagnostics Vital Signs (24Hr): Vital Signs - 24 hr 11/23/22 21:06 11/24/22 06:00 Temperature 98.0 F 98.0 F Pulse Rate 57 49 L Respiratory Rate 18 Blood Pressure 124/68 118/63 Pulse Oximetry 98 98 Oxygen Delivery Method Room Air Room Air BMI result Body Mass Index 21.7 Medications Medications Current Medications Acetaminophen (Acetaminophen 325 Mg Tablet) 650 mg PO Q6H PRN PRN Reason: Headache/Pain Mild Scale (1-3) Al Hydroxide/Mg Hydroxide (Magnesium Hydrox/Alum Hydrox 30 Ml Oral.Susp) 30 ml PO Q6H PRN PRN Reason: Heartburn/Nausea Amlodipine Besylate (Amlodipine Besylate 5 Mg Tablet) 5 mg PO BID [facility]; Protocol Last Admin: 11/24/22 09:08 Dose: 5 mg Benztropine Mesylate (Benztropine Mesylate 1 Mg Tablet) 1 mg PO TID PRN PRN Reason: Extrapyramidal Effects Last Admin: 11/20/22 11:52 Dose: 1 mg Diphenhydramine HCl (Diphenhydramine Hcl 25 Mg Capsule) 100 mg PO Q8H PRN PRN Reason: Restlessness Last Admin: 11/24/22 10:28 Dose: 100 mg Fluphenazine Decanoate (Fluphenazine Decanoate 25 Mg/Ml 5 Ml Vial) 25 mg IM Q14D@0900 [facility] Last Admin: 11/21/22 08:49 Dose: 25 mg Magnesium Hydroxide (Milk Of Magnesia 30 Ml Oral.Susp) 30 ml PO DAILY PRN PRN Reason: Constipation Propranolol HCl (Propranolol Hcl 10 Mg Tablet) 10 mg PO QID PRN; Protocol PRN Reason: restlessness Last Admin: 11/14/22 11:30 Dose: 10 mg Trazodone HCl (Trazodone Hcl 50 Mg Tablet) 50 mg PO BEDTIME PRN PRN Reason: Insomnia Last Admin: 11/23/22 22:15 Dose: 50 mg Allergies Allergies Allergy/AdvReac Type Severity Reaction Status Date / Time cashew nut Allergy Severe ANAPHYLAXIS Verified 01/31/22 11:11 peanut [Peanut] Allergy Severe ANAPHALAXIS Verified 01/31/22 11:11 Assessment & Plan Assessment & Plan (1) Schizophrenia: Status: Chronic Code(s): F20.9 - Schizophrenia, unspecified Plan Ms. Guillaume is a 62 year-old woman with hx of schizophrenia. She was last psychiatrically admitted to on 10/2021 and discharged on prolixin 25mg IM [id number]. It appears that pt stopped prolixin about 4 months and gradually has been decompensating, presenting more paranoid and suspicious. She was found wondering on streets wearing mostly just bath rope, presented as paranoid. She was brought to [facility]- found to have hypertensive crisis, elevated TSH, refusing to eat because she believes food is poisoned, declining to have HTN treatment stating that there was cocaine in the water of the hospital. Pt given prolixin 12.5mg IM on 10/24/2022, next prolixin dose due on 11/07/22- higher dose of 25mg [id number]. This narrative writer saw pt while at [facility]. She appears now slightly more catatonic features including mutism, negativism along with underlying paranoid and persecutor delusions. PLAN 1. Admit on M3, Sect 12b, 15 minutes checks 2. Next prolixin 25mg IM [id number] due on 11/07/22- supposed to supplement with oral prolixin as there is 2 week delay onset. Back up haldol if refuses prolixin but pt with s/s of catatonia, may give ativan 3. Obtain collateral information from [place]- brother and guardian [phone]. 4. After care planning. 11/02- continue current medication. on sect 12, will file. 11/03 petition for sec 8 filed, pt now on section 7. continue current medication per joselyn's pt scheduled to received prolixin 25mg IM on 11/07/2022. 11/04 contnue current treatment plan 5 min checks 11/05 continue current treatment plan 11/06 continue current tx. Next prolixin Dec 25mg IM due tomorrow, will d/c oral prolixin by then. 11/07 received prolixin 25mg IM today, next one due on 11/21/2022. 11/08 continue tx. 11/09 continue tx. 11/10 continue tx. 11/11 continue tx. 11/12 continue tx. 11/13 continue tx. 11/14 added propanolol 10mg po QID prn akathesia (pt declined to schedule it), benadryl 100mg po q8h prn for same. pt declined ativan or cogentin. 11/15 continue tx. 11/16 continue tx. 11/17 continue tx. 11/18: no change in mgmt. some staff concern re involuntary mvmts of hand/arm. 11/19: no change in mgmt. some staff concern re involuntary mvmts of hand/arm. 11/20: no change in mgmt. some staff concern re involuntary mvmts of hand/arm. 11/21 continue tx. 11/22 continue tx. 11/23: continue current mgmt. 11/24: schedule benadryl 100 mg QHS for akathisia prophylaxis. otherwise continue current mgmt. Patient educated on: diagnosis, medication risk/benefits and medical condition Reason for contiued inpatient stay Substantial Risk for: inability to function and rapid decompensation Time Spent With Patient Time: Total time managing care of this patient today __20__ minutes.
[2022-11-24 22:00] VITALS: BP 113/61; PULSE 64; RESP 16; TEMP 36.1; O2SAT 96
[2022-11-25] MEDS: amLODIPine Besylate 5 MG TABLET PO ×2 (08:33→22:36)
[2022-11-25] MEDS: diphenhydrAMINE HCL 25 MG CAPSULE 100 MG PO ×2 (09:28→22:36)
[2022-11-25 10:24] VITALS: BP 139/65; PULSE 56; RESP 18; TEMP 36.7; O2SAT 99
--- NOTE | 2022-11-25 12:45 | HO.PSYCHPN ---
Subjective Subjective Date of Service: 11/25/22 Reason For Visit: Psychosis Subjective Notes: Section 7 Medical Problems Affecting Mental Status: No Interim History: Pt and I known to each other from prior admission 2011- Pt reports doing ok back on med- some restlessness and eps managed with benadryl Medication Compliance: Yes Side effects from medications: Yes (eps) Attending Groups: No Review of Systems Acute medical concerns: No Medical Review of Systems: unchanged Mental Status Exam Mental Status Exam Patient Appearance: Unkempt Patient Orientation: Person, Place, Time and Situation Level of Consciousness: Awake Patient Behavior: Guarded and Passive Mood Description: Calm Affect Description: Blunted Patient Cognition Impaired: No Ability to Follow Directions: Good Speech Pattern: Clear Thought Process: Intact Thought Content: positive for Goal Oriented Depressive Symptoms: Muscle Tension Abnormal Motor Activity Signs and Symptoms: Restlessness Judgement: Fair Diagnostics Vital Signs (24Hr): Vital Signs - 24 hr 11/24/22 22:00 11/25/22 10:24 Temperature 96.9 F 98.1 F Pulse Rate 64 56 Respiratory Rate 16 18 Blood Pressure 113/61 139/65 Pulse Oximetry 96 99 Oxygen Delivery Method Room Air Room Air BMI result Body Mass Index 21.7 Medications Medications Current Medications Acetaminophen (Acetaminophen 325 Mg Tablet) 650 mg PO Q6H PRN PRN Reason: Headache/Pain Mild Scale (1-3) Al Hydroxide/Mg Hydroxide (Magnesium Hydrox/Alum Hydrox 30 Ml Oral.Susp) 30 ml PO Q6H PRN PRN Reason: Heartburn/Nausea Amlodipine Besylate (Amlodipine Besylate 5 Mg Tablet) 5 mg PO BID [facility]; Protocol Last Admin: 11/25/22 08:33 Dose: 5 mg Benztropine Mesylate (Benztropine Mesylate 1 Mg Tablet) 1 mg PO TID PRN PRN Reason: Extrapyramidal Effects Last Admin: 11/20/22 11:52 Dose: 1 mg Diphenhydramine HCl (Diphenhydramine Hcl 25 Mg Capsule) 100 mg PO Q8H PRN PRN Reason: Restlessness Last Admin: 11/25/22 09:28 Dose: 100 mg Diphenhydramine HCl (Diphenhydramine Hcl 25 Mg Capsule) 100 mg PO BEDTIME [facility] Last Admin: 11/24/22 22:02 Dose: 100 mg Fluphenazine Decanoate (Fluphenazine Decanoate 25 Mg/Ml 5 Ml Vial) 25 mg IM Q14D@0900 [facility] Last Admin: 11/21/22 08:49 Dose: 25 mg Magnesium Hydroxide (Milk Of Magnesia 30 Ml Oral.Susp) 30 ml PO DAILY PRN PRN Reason: Constipation Propranolol HCl (Propranolol Hcl 10 Mg Tablet) 10 mg PO QID PRN; Protocol PRN Reason: restlessness Last Admin: 11/14/22 11:30 Dose: 10 mg Trazodone HCl (Trazodone Hcl 50 Mg Tablet) 50 mg PO BEDTIME PRN PRN Reason: Insomnia Last Admin: 11/23/22 22:15 Dose: 50 mg Allergies Allergies Allergy/AdvReac Type Severity Reaction Status Date / Time cashew nut Allergy Severe ANAPHYLAXIS Verified 01/31/22 11:11 peanut [Peanut] Allergy Severe ANAPHALAXIS Verified 01/31/22 11:11 Assessment & Plan Assessment & Plan (1) Schizophrenia: Status: Chronic Code(s): F20.9 - Schizophrenia, unspecified Assessment and Plan: back to taking medications while pending commitment- if doesn't have outpatient eren will likely continue to go off medications after dc Plan Ms. Guillaume is a 62 year-old woman with hx of schizophrenia. She was last psychiatrically admitted to on 10/2021 and discharged on prolixin 25mg IM [id number]. It appears that pt stopped prolixin about 4 months and gradually has been decompensating, presenting more paranoid and suspicious. She was found wondering on streets wearing mostly just bath rope, presented as paranoid. She was brought to [facility]- found to have hypertensive crisis, elevated TSH, refusing to eat because she believes food is poisoned, declining to have HTN treatment stating that there was cocaine in the water of the hospital. Pt given prolixin 12.5mg IM on 10/24/2022, next prolixin dose due on 11/07/22- higher dose of 25mg [id number]. This magazine writer saw pt while at [facility]. She appears now slightly more catatonic features including mutism, negativism along with underlying paranoid and persecutor delusions. PLAN 1. Admit on M3, Sect 12b, 15 minutes checks 2. Next prolixin 25mg IM [id number] due on 11/07/22- supposed to supplement with oral prolixin as there is 2 week delay onset. Back up haldol if refuses prolixin but pt with s/s of catatonia, may give ativan 3. Obtain collateral information from [place]- brother and guardian [phone]. 4. After care planning. 11/02- continue current medication. on sect 12, will file. 11/03 petition for sec 8 filed, pt now on section 7. continue current medication per joselyn's pt scheduled to received prolixin 25mg IM on 11/07/2022. 11/04 contnue current treatment plan 5 min checks 11/05 continue current treatment plan 11/06 continue current tx. Next prolixin Dec 25mg IM due tomorrow, will d/c oral prolixin by then. 11/07 received prolixin 25mg IM today, next one due on 11/21/2022. 11/08 continue tx. 11/09 continue tx. 11/10 continue tx. 11/11 continue tx. 11/12 continue tx. 11/13 continue tx. 11/14 added propanolol 10mg po QID prn akathesia (pt declined to schedule it), benadryl 100mg po q8h prn for same. pt declined ativan or cogentin. 11/15 continue tx. 11/16 continue tx. 11/17 continue tx. 11/18: no change in mgmt. some staff concern re involuntary mvmts of hand/arm. 11/19: no change in mgmt. some staff concern re involuntary mvmts of hand/arm. 11/20: no change in mgmt. some staff concern re involuntary mvmts of hand/arm. 11/21 continue tx. 11/22 continue tx. 11/23: continue current mgmt. 11/24: schedule benadryl 100 mg QHS for akathisia prophylaxis. otherwise continue current mgmt. Patient educated on: medication risk/benefits and other Informed Consent: understands Reason for contiued inpatient stay Substantial Risk for: inability to function and rapid decompensation Time Spent With Patient Time: Total time managing care of this patient today ____ minutes.
[2022-11-25 22:30] VITALS: BP 128/75; PULSE 60; RESP 16; TEMP 35.9; O2SAT 97
[2022-11-26] MEDS: diphenhydrAMINE HCL 25 MG CAPSULE 100 MG PO ×3 (06:51→20:35)
[2022-11-26] MEDS: amLODIPine Besylate 5 MG TABLET PO ×2 (08:47→20:47)
[2022-11-26 09:20] VITALS: BP 149/65; PULSE 68; RESP 16; TEMP 36.4; O2SAT 99
--- NOTE | 2022-11-26 14:11 | HO.PSYCHPN ---
Subjective Subjective Date of Service: 11/26/22 Reason For Visit: Psychosis Subjective Notes: Section 7 Healthcare Proxy: No Guardianship: Yes Medical Problems Affecting Mental Status: No Interim History: Pt reports she is feeling ok - no PI- taking medications- benadryl helping EPS Medication Compliance: Yes Side effects from medications: Yes (EPS ?slight TD movements lower limbs) Attending Groups: No Review of Systems Acute medical concerns: No Medical Review of Systems: unchanged Mental Status Exam Mental Status Exam Patient Appearance: Unkempt Patient Orientation: Person, Place, Time and Situation Level of Consciousness: Awake Patient Behavior: Guarded and Passive Mood Description: Calm Affect Description: Blunted Patient Cognition Impaired: No Ability to Follow Directions: Good Speech Pattern: Clear Thought Process: Intact Thought Content: positive for Goal Oriented Depressive Symptoms: Muscle Tension Abnormal Motor Activity Signs and Symptoms: Restlessness Judgement: Fair Diagnostics Vital Signs (24Hr): Vital Signs - 24 hr 11/25/22 22:30 11/26/22 09:20 Temperature 96.7 F L 97.6 F Pulse Rate 60 68 Respiratory Rate 16 16 Blood Pressure 128/75 149/65 H Pulse Oximetry 97 99 Oxygen Delivery Method Room Air Room Air BMI result Body Mass Index 21.7 Medications Medications Current Medications Acetaminophen (Acetaminophen 325 Mg Tablet) 650 mg PO Q6H PRN PRN Reason: Headache/Pain Mild Scale (1-3) Al Hydroxide/Mg Hydroxide (Magnesium Hydrox/Alum Hydrox 30 Ml Oral.Susp) 30 ml PO Q6H PRN PRN Reason: Heartburn/Nausea Amlodipine Besylate (Amlodipine Besylate 5 Mg Tablet) 5 mg PO BID [facility]; Protocol Last Admin: 11/26/22 08:47 Dose: 5 mg Benztropine Mesylate (Benztropine Mesylate 1 Mg Tablet) 1 mg PO TID PRN PRN Reason: Extrapyramidal Effects Last Admin: 11/20/22 11:52 Dose: 1 mg Diphenhydramine HCl (Diphenhydramine Hcl 25 Mg Capsule) 100 mg PO Q8H PRN PRN Reason: Restlessness Last Admin: 11/26/22 06:51 Dose: 100 mg Diphenhydramine HCl (Diphenhydramine Hcl 25 Mg Capsule) 100 mg PO BEDTIME [facility] Last Admin: 11/25/22 22:36 Dose: 100 mg Fluphenazine Decanoate (Fluphenazine Decanoate 25 Mg/Ml 5 Ml Vial) 25 mg IM Q14D@0900 [facility] Last Admin: 11/21/22 08:49 Dose: 25 mg Magnesium Hydroxide (Milk Of Magnesia 30 Ml Oral.Susp) 30 ml PO DAILY PRN PRN Reason: Constipation Propranolol HCl (Propranolol Hcl 10 Mg Tablet) 10 mg PO QID PRN; Protocol PRN Reason: restlessness Last Admin: 11/14/22 11:30 Dose: 10 mg Trazodone HCl (Trazodone Hcl 50 Mg Tablet) 50 mg PO BEDTIME PRN PRN Reason: Insomnia Last Admin: 11/23/22 22:15 Dose: 50 mg Allergies Allergies Allergy/AdvReac Type Severity Reaction Status Date / Time cashew nut Allergy Severe ANAPHYLAXIS Verified 01/31/22 11:11 peanut [Peanut] Allergy Severe ANAPHALAXIS Verified 01/31/22 11:11 Assessment & Plan Assessment & Plan (1) Schizophrenia: Status: Chronic Code(s): F20.9 - Schizophrenia, unspecified Assessment and Plan: back to taking medications while pending commitment- if doesn't have outpatient eren will likely continue to go off medications after dc Plan Ms. Guillaume is a 62 year-old woman with hx of schizophrenia. She was last psychiatrically admitted to on 10/2021 and discharged on prolixin 25mg IM [id number]. It appears that pt stopped prolixin about 4 months and gradually has been decompensating, presenting more paranoid and suspicious. She was found wondering on streets wearing mostly just bath rope, presented as paranoid. She was brought to [facility]- found to have hypertensive crisis, elevated TSH, refusing to eat because she believes food is poisoned, declining to have HTN treatment stating that there was cocaine in the water of the hospital. Pt given prolixin 12.5mg IM on 10/24/2022, next prolixin dose due on 11/07/22- higher dose of 25mg [id number]. This commercial underwriter saw pt while at [facility]. She appears now slightly more catatonic features including mutism, negativism along with underlying paranoid and persecutor delusions. PLAN 1. Admit on M3, Sect 12b, 15 minutes checks 2. Next prolixin 25mg IM [id number] due on 11/07/22- supposed to supplement with oral prolixin as there is 2 week delay onset. Back up haldol if refuses prolixin but pt with s/s of catatonia, may give ativan 3. Obtain collateral information from [place]- brother and guardian [phone]. 4. After care planning. 11/02- continue current medication. on sect 12, will file. 11/03 petition for sec 8 filed, pt now on section 7. continue current medication per joselyn's pt scheduled to received prolixin 25mg IM on 11/07/2022. 11/04 contnue current treatment plan 5 min checks 11/05 continue current treatment plan 11/06 continue current tx. Next prolixin Dec 25mg IM due tomorrow, will d/c oral prolixin by then. 11/07 received prolixin 25mg IM today, next one due on 11/21/2022. 11/08 continue tx. 11/09 continue tx. 11/10 continue tx. 11/11 continue tx. 11/12 continue tx. 11/13 continue tx. 11/14 added propanolol 10mg po QID prn akathesia (pt declined to schedule it), benadryl 100mg po q8h prn for same. pt declined ativan or cogentin. 11/15 continue tx. 11/16 continue tx. 11/17 continue tx. 11/18: no change in mgmt. some staff concern re involuntary mvmts of hand/arm. 11/19: no change in mgmt. some staff concern re involuntary mvmts of hand/arm. 11/20: no change in mgmt. some staff concern re involuntary mvmts of hand/arm. 11/21 continue tx. 11/22 continue tx. 11/23: continue current mgmt. 11/24: schedule benadryl 100 mg QHS for akathisia prophylaxis. otherwise continue current mgmt. Patient educated on: medication risk/benefits Informed Consent: further education needed Reason for contiued inpatient stay Substantial Risk for: inability to function and rapid decompensation Time Spent With Patient Time: Total time managing care of this patient today ____ minutes.
[2022-11-26 20:45] VITALS: BP 110/69; PULSE 62; RESP 16; TEMP 36.6; O2SAT 97
[2022-11-27 07:59] VITALS: BP 126/73; PULSE 54; RESP 16; TEMP 36.6; O2SAT 98
[2022-11-27] MEDS: diphenhydrAMINE HCL 25 MG CAPSULE 100 MG PO ×3 (08:00→20:43)
[2022-11-27] MEDS: amLODIPine Besylate 5 MG TABLET PO ×2 (12:14→20:44)
--- NOTE | 2022-11-27 14:41 | HO.PSYCHPN ---
Subjective Subjective Date of Service: 11/27/22 Reason For Visit: Psychosis Interim History: calm, cooperative. asking very reasonable and logical questions about the plan. she is aware of the PETERSON injection planned for next sunday with plan to discharge shortly after. she did not seem to be aware of her legal status and that a hearing was scheduled for 11/30. she was educated about the process and requested to sign a CV, which she did. per staff, denies Sx. pacing, listening to music. poor ADLs. no complaints. slept overnight. hearing scheduled for 11/30. Mental Status Exam Mental Status Exam Narrative: Appearance:wearing hospital gown, fair hygiene, in NAD Behavior: no PMA/PMR. open, agreeable. TP:linear Speech:clear, regular rate/rhythm, volume, spontaneous Delusions: none expressed SI: none expressed HI: none expressed AH/VH: none expressed Insight/judgment: improving x 2. Diagnostics Vital Signs (24Hr): Vital Signs - 24 hr 11/26/22 20:45 11/27/22 07:59 Temperature 98 F 97.8 F Pulse Rate 62 54 Respiratory Rate 16 16 Blood Pressure 110/69 126/73 Pulse Oximetry 97 98 Oxygen Delivery Method Room Air Room Air BMI result Body Mass Index 21.7 Medications Medications Current Medications Acetaminophen (Acetaminophen 325 Mg Tablet) 650 mg PO Q6H PRN PRN Reason: Headache/Pain Mild Scale (1-3) Al Hydroxide/Mg Hydroxide (Magnesium Hydrox/Alum Hydrox 30 Ml Oral.Susp) 30 ml PO Q6H PRN PRN Reason: Heartburn/Nausea Amlodipine Besylate (Amlodipine Besylate 5 Mg Tablet) 5 mg PO BID [facility]; Protocol Last Admin: 11/27/22 08:03 Dose: Not Given Benztropine Mesylate (Benztropine Mesylate 1 Mg Tablet) 1 mg PO TID PRN PRN Reason: Extrapyramidal Effects Last Admin: 11/20/22 11:52 Dose: 1 mg Diphenhydramine HCl (Diphenhydramine Hcl 25 Mg Capsule) 100 mg PO Q8H PRN PRN Reason: Restlessness Last Admin: 11/27/22 08:00 Dose: 100 mg Diphenhydramine HCl (Diphenhydramine Hcl 25 Mg Capsule) 100 mg PO BEDTIME SARABJIT Last Admin: 11/26/22 20:46 Dose: 100 mg Fluphenazine Decanoate (Fluphenazine Decanoate 25 Mg/Ml 5 Ml Vial) 25 mg IM Q14D@0900 [facility] Last Admin: 11/21/22 08:49 Dose: 25 mg Magnesium Hydroxide (Milk Of Magnesia 30 Ml Oral.Susp) 30 ml PO DAILY PRN PRN Reason: Constipation Propranolol HCl (Propranolol Hcl 10 Mg Tablet) 10 mg PO QID PRN; Protocol PRN Reason: restlessness Last Admin: 11/14/22 11:30 Dose: 10 mg Trazodone HCl (Trazodone Hcl 50 Mg Tablet) 50 mg PO BEDTIME PRN PRN Reason: Insomnia Last Admin: 11/23/22 22:15 Dose: 50 mg Allergies Allergies Allergy/AdvReac Type Severity Reaction Status Date / Time cashew nut Allergy Severe ANAPHYLAXIS Verified 01/31/22 11:11 peanut [Peanut] Allergy Severe ANAPHALAXIS Verified 01/31/22 11:11 Assessment & Plan Assessment & Plan (1) Schizophrenia: Status: Chronic Code(s): F20.9 - Schizophrenia, unspecified Assessment and Plan: back to taking medications while pending commitment- if doesn't have outpatient jason will likely continue to go off medications after dc Plan Ms. Guillaume is a 62 year-old woman with hx of schizophrenia. She was last psychiatrically admitted to on 10/2021 and discharged on prolixin 25mg IM [id number]. It appears that pt stopped prolixin about 4 months and gradually has been decompensating, presenting more paranoid and suspicious. She was found wondering on streets wearing mostly just bath rope, presented as paranoid. She was brought to [facility]- found to have hypertensive crisis, elevated TSH, refusing to eat because she believes food is poisoned, declining to have HTN treatment stating that there was cocaine in the water of the hospital. Pt given prolixin 12.5mg IM on 10/24/2022, next prolixin dose due on 11/07/22- higher dose of 25mg [id number]. This repairer typewriter saw pt while at [facility]. She appears now slightly more catatonic features including mutism, negativism along with underlying paranoid and persecutor delusions. PLAN 1. Admit on M3, Sect 12b, 15 minutes checks 2. Next prolixin 25mg IM [id number] due on 11/07/22- supposed to supplement with oral prolixin as there is 2 week delay onset. Back up haldol if refuses prolixin but pt with s/s of catatonia, may give ativan 3. Obtain collateral information from [place]- brother and guardian [phone]. 4. After care planning. 11/02- continue current medication. on sect 12, will file. 11/03 petition for sec 8 filed, pt now on section 7. continue current medication per joselyn's pt scheduled to received prolixin 25mg IM on 11/07/2022. 11/04 contnue current treatment plan 5 min checks 11/05 continue current treatment plan 11/06 continue current tx. Next prolixin Dec 25mg IM due tomorrow, will d/c oral prolixin by then. 11/07 received prolixin 25mg IM today, next one due on 11/21/2022. 11/08 continue tx. 11/09 continue tx. 11/10 continue tx. 11/11 continue tx. 11/12 continue tx. 11/13 continue tx. 11/14 added propanolol 10mg po QID prn akathesia (pt declined to schedule it), benadryl 100mg po q8h prn for same. pt declined ativan or cogentin. 11/15 continue tx. 11/16 continue tx. 11/17 continue tx. 11/18: no change in mgmt. some staff concern re involuntary mvmts of hand/arm. 11/19: no change in mgmt. some staff concern re involuntary mvmts of hand/arm. 11/20: no change in mgmt. some staff concern re involuntary mvmts of hand/arm. 11/21 continue tx. 11/22 continue tx. 11/23: continue current mgmt. 11/24: schedule benadryl 100 mg QHS for akathisia prophylaxis. otherwise continue current mgmt. 11/27: signed CV. otherwise no change to mgmt. Reason for contiued inpatient stay Substantial Risk for: inability to function and rapid decompensation Time Spent With Patient Time: Total time managing care of this patient today __25__ minutes.
[2022-11-27 20:35] VITALS: BP 117/75; PULSE 64; RESP 16; TEMP 36.7; O2SAT 95
[2022-11-28 06:00] VITALS: BP 133/69; PULSE 62; RESP 18; TEMP 36.6; O2SAT 97
[2022-11-28] MEDS: diphenhydrAMINE HCL 25 MG CAPSULE 100 MG PO (08:54)
[2022-11-28] MEDS: amLODIPine Besylate 5 MG TABLET PO ×2 (08:54→21:09)
--- NOTE | 2022-11-28 15:33 | P.PNPSI_ITS ---
Subjective Subjective Date of Service: 11/28/22 Reason For Visit: Psychosis Interim History: calm, cooperative. ambulating the kramer. reports decreased hand mvmts. not restless at bedtime anymore. per staff, denies psych Sx. using PRN benadryl. fearful of showering due to h/o fungal infection from showering on M5. isolative, safe. Mental Status Exam Mental Status Exam Narrative: Appearance:wearing hospital gown, fair hygiene, in NAD Behavior: no PMA/PMR. open, agreeable. TP:linear Speech:clear, regular rate/rhythm, volume, spontaneous Delusions: none expressed SI: none expressed HI: none expressed AH/VH: none expressed Insight/judgment: improving x 2. Diagnostics Vital Signs (24Hr): Vital Signs - 24 hr 11/27/22 20:35 11/28/22 06:00 Temperature 98.1 F 97.8 F Pulse Rate 64 62 Respiratory Rate 16 18 Blood Pressure 117/75 133/69 Pulse Oximetry 95 97 Oxygen Delivery Method Room Air Room Air BMI result Body Mass Index 21.7 Medications Medications Current Medications Acetaminophen (Acetaminophen 325 Mg Tablet) 650 mg PO Q6H PRN PRN Reason: Headache/Pain Mild Scale (1-3) Al Hydroxide/Mg Hydroxide (Magnesium Hydrox/Alum Hydrox 30 Ml Oral.Susp) 30 ml PO Q6H PRN PRN Reason: Heartburn/Nausea Amlodipine Besylate (Amlodipine Besylate 5 Mg Tablet) 5 mg PO BID [facility]; Protocol Last Admin: 11/28/22 08:54 Dose: 5 mg Benztropine Mesylate (Benztropine Mesylate 1 Mg Tablet) 1 mg PO TID PRN PRN Reason: Extrapyramidal Effects Last Admin: 11/20/22 11:52 Dose: 1 mg Diphenhydramine HCl (Diphenhydramine Hcl 25 Mg Capsule) 100 mg PO Q8H PRN PRN Reason: Restlessness Last Admin: 11/28/22 08:54 Dose: 100 mg Diphenhydramine HCl (Diphenhydramine Hcl 25 Mg Capsule) 100 mg PO BEDTIME [facility] Last Admin: 11/27/22 20:43 Dose: 100 mg Fluphenazine Decanoate (Fluphenazine Decanoate 25 Mg/Ml 5 Ml Vial) 25 mg IM Q14D@0900 [facility] Last Admin: 11/21/22 08:49 Dose: 25 mg Magnesium Hydroxide (Milk Of Magnesia 30 Ml Oral.Susp) 30 ml PO DAILY PRN PRN Reason: Constipation Propranolol HCl (Propranolol Hcl 10 Mg Tablet) 10 mg PO QID PRN; Protocol PRN Reason: restlessness Last Admin: 11/14/22 11:30 Dose: 10 mg Trazodone HCl (Trazodone Hcl 50 Mg Tablet) 50 mg PO BEDTIME PRN PRN Reason: Insomnia Last Admin: 11/23/22 22:15 Dose: 50 mg Allergies Allergies Allergy/AdvReac Type Severity Reaction Status Date / Time cashew nut Allergy Severe ANAPHYLAXIS Verified 01/31/22 11:11 peanut [Peanut] Allergy Severe ANAPHALAXIS Verified 01/31/22 11:11 Assessment & Plan Assessment & Plan (1) Schizophrenia: Status: Chronic Code(s): F20.9 - Schizophrenia, unspecified Assessment and Plan: back to taking medications while pending commitment- if doesn't have outpatient eren will likely continue to go off medications after dc Plan Ms. Guillaume is a 62 year-old woman with hx of schizophrenia. She was last psychiatrically admitted to on 10/2021 and discharged on prolixin 25mg IM [id number]. It appears that pt stopped prolixin about 4 months and gradually has been decompensating, presenting more paranoid and suspicious. She was found wondering on streets wearing mostly just bath rope, presented as paranoid. She was brought to [facility]- found to have hypertensive crisis, elevated TSH, refusing to eat because she believes food is poisoned, declining to have HTN treatment stating that there was cocaine in the water of the hospital. Pt given prolixin 12.5mg IM on 10/24/2022, next prolixin dose due on 11/07/22- higher dose of 25mg [id number]. This radio news writer saw pt while at [facility]. She appears now slightly more catatonic features including mutism, negativism along with underlying paranoid and persecutor delusions. PLAN 1. Admit on M3, Sect 12b, 15 minutes checks 2. Next prolixin 25mg IM [id number] due on 11/07/22- supposed to supplement with oral prolixin as there is 2 week delay onset. Back up haldol if refuses prolixin but pt with s/s of catatonia, may give ativan 3. Obtain collateral information from [place]- brother and guardian [phone]. 4. After care planning. 11/02- continue current medication. on sect 12, will file. 11/03 petition for sec 8 filed, pt now on section 7. continue current medication per joselyn's pt scheduled to received prolixin 25mg IM on 11/07/2022. 11/04 contnue current treatment plan 5 min checks 11/05 continue current treatment plan 11/06 continue current tx. Next prolixin Dec 25mg IM due tomorrow, will d/c oral prolixin by then. 11/07 received prolixin 25mg IM today, next one due on 11/21/2022. 11/08 continue tx. 11/09 continue tx. 11/10 continue tx. 11/11 continue tx. 11/12 continue tx. 11/13 continue tx. 11/14 added propanolol 10mg po QID prn akathesia (pt declined to schedule it), benadryl 100mg po q8h prn for same. pt declined ativan or cogentin. 11/15 continue tx. 11/16 continue tx. 11/17 continue tx. 11/18: no change in mgmt. some staff concern re involuntary mvmts of hand/arm. 11/19: no change in mgmt. some staff concern re involuntary mvmts of hand/arm. 11/20: no change in mgmt. some staff concern re involuntary mvmts of hand/arm. 11/21 continue tx. 11/22 continue tx. 11/23: continue current mgmt. 11/24: schedule benadryl 100 mg QHS for akathisia prophylaxis. otherwise continue current mgmt. 11/27: signed CV. otherwise no change to mgmt. 11/28: reporting decreased IVM. not restless at HS. no change to regimen. Reason for contiued inpatient stay Substantial Risk for: inability to function and rapid decompensation Time Spent With Patient Time: Total time managing care of this patient today _20___ minutes.
[2022-11-28 20:39] VITALS: BP 107/56; PULSE 58; TEMP 36.8; O2SAT 97
[2022-11-29] MEDS: diphenhydrAMINE HCL 25 MG CAPSULE 100 MG PO ×3 (08:16→21:15)
[2022-11-29] MEDS: amLODIPine Besylate 5 MG TABLET PO ×2 (08:16→21:15)
[2022-11-29 08:18] VITALS: BP 128/56; PULSE 61; RESP 18; TEMP 36.6; O2SAT 98
--- NOTE | 2022-11-29 15:20 | P.PNPSI_ITS ---
Subjective Subjective Date of Service: 11/29/22 Reason For Visit: Psychosis Interim History: calm, cooperative. no complaints or requests. per staff, c/o restlessness but doesn't want a medications change. pacing. no groups. + meds and meals. slept well. Mental Status Exam Mental Status Exam Narrative: Appearance:wearing hospital gown, fair hygiene, in NAD Behavior: no PMA/PMR. open, agreeable. TP:linear Speech:clear, regular rate/rhythm, volume, spontaneous Delusions: none expressed SI: none expressed HI: none expressed AH/VH: none expressed Insight/judgment: improving x 2. Diagnostics Vital Signs (24Hr): Vital Signs - 24 hr 11/28/22 20:39 11/29/22 08:18 Temperature 98.2 F 97.9 F Pulse Rate 58 61 Respiratory Rate 18 Blood Pressure 107/56 L 128/56 L Pulse Oximetry 97 98 Oxygen Delivery Method Room Air Room Air BMI result Body Mass Index 21.7 Medications Medications Current Medications Acetaminophen (Acetaminophen 325 Mg Tablet) 650 mg PO Q6H PRN PRN Reason: Headache/Pain Mild Scale (1-3) Al Hydroxide/Mg Hydroxide (Magnesium Hydrox/Alum Hydrox 30 Ml Oral.Susp) 30 ml PO Q6H PRN PRN Reason: Heartburn/Nausea Amlodipine Besylate (Amlodipine Besylate 5 Mg Tablet) 5 mg PO BID [facility]; Protocol Last Admin: 11/29/22 08:16 Dose: 5 mg Benztropine Mesylate (Benztropine Mesylate 1 Mg Tablet) 1 mg PO TID PRN PRN Reason: Extrapyramidal Effects Last Admin: 11/20/22 11:52 Dose: 1 mg Diphenhydramine HCl (Diphenhydramine Hcl 25 Mg Capsule) 100 mg PO Q8H PRN PRN Reason: Restlessness Last Admin: 11/29/22 08:16 Dose: 100 mg Diphenhydramine HCl (Diphenhydramine Hcl 25 Mg Capsule) 100 mg PO BEDTIME [facility] Last Admin: 11/29/22 02:21 Dose: Not Given Fluphenazine Decanoate (Fluphenazine Decanoate 25 Mg/Ml 5 Ml Vial) 25 mg IM Q14D@0900 [facility] Last Admin: 11/21/22 08:49 Dose: 25 mg Magnesium Hydroxide (Milk Of Magnesia 30 Ml Oral.Susp) 30 ml PO DAILY PRN PRN Reason: Constipation Propranolol HCl (Propranolol Hcl 10 Mg Tablet) 10 mg PO QID PRN; Protocol PRN Reason: restlessness Last Admin: 11/14/22 11:30 Dose: 10 mg Trazodone HCl (Trazodone Hcl 50 Mg Tablet) 50 mg PO BEDTIME PRN PRN Reason: Insomnia Last Admin: 11/23/22 22:15 Dose: 50 mg Allergies Allergies Allergy/AdvReac Type Severity Reaction Status Date / Time cashew nut Allergy Severe ANAPHYLAXIS Verified 01/31/22 11:11 peanut [Peanut] Allergy Severe ANAPHALAXIS Verified 01/31/22 11:11 Assessment & Plan Assessment & Plan (1) Schizophrenia: Status: Chronic Code(s): F20.9 - Schizophrenia, unspecified Assessment and Plan: back to taking medications while pending commitment- if doesn't have outpatient eren will likely continue to go off medications after dc Plan Ms. Guillaume is a 62 year-old woman with hx of schizophrenia. She was last psychiatrically admitted to on 10/2021 and discharged on prolixin 25mg IM [id number]. It appears that pt stopped prolixin about 4 months and gradually has been decompensating, presenting more paranoid and suspicious. She was found wondering on streets wearing mostly just bath rope, presented as paranoid. She was brought to [facility]- found to have hypertensive crisis, elevated TSH, refusing to eat because she believes food is poisoned, declining to have HTN treatment stating that there was cocaine in the water of the hospital. Pt given prolixin 12.5mg IM on 10/24/2022, next prolixin dose due on 11/07/22- higher dose of 25mg [id number]. This radio script writer saw pt while at [facility]. She appears now slightly more catatonic features including mutism, negativism along with underlying paranoid and persecutor delusions. PLAN 1. Admit on M3, Sect 12b, 15 minutes checks 2. Next prolixin 25mg IM [id number] due on 11/07/22- supposed to supplement with oral prolixin as there is 2 week delay onset. Back up haldol if refuses prolixin but pt with s/s of catatonia, may give ativan 3. Obtain collateral information from [place]- brother and guardian [phone]. 4. After care planning. 11/02- continue current medication. on sect 12, will file. 11/03 petition for sec 8 filed, pt now on section 7. continue current medication per joselyn's pt scheduled to received prolixin 25mg IM on 11/07/2022. 11/04 contnue current treatment plan 5 min checks 11/05 continue current treatment plan 11/06 continue current tx. Next prolixin Dec 25mg IM due tomorrow, will d/c oral prolixin by then. 11/07 received prolixin 25mg IM today, next one due on 11/21/2022. 11/08 continue tx. 11/09 continue tx. 11/10 continue tx. 11/11 continue tx. 11/12 continue tx. 11/13 continue tx. 11/14 added propanolol 10mg po QID prn akathesia (pt declined to schedule it), benadryl 100mg po q8h prn for same. pt declined ativan or cogentin. 11/15 continue tx. 11/16 continue tx. 11/17 continue tx. 11/18: no change in mgmt. some staff concern re involuntary mvmts of hand/arm. 11/19: no change in mgmt. some staff concern re involuntary mvmts of hand/arm. 11/20: no change in mgmt. some staff concern re involuntary mvmts of hand/arm. 11/21 continue tx. 11/22 continue tx. 11/23: continue current mgmt. 11/24: schedule benadryl 100 mg QHS for akathisia prophylaxis. otherwise continue current mgmt. 11/27: signed CV. otherwise no change to mgmt. 11/28: reporting decreased IVM. not restless at HS. no change to regimen. 11/29: no change in presentation or regimen. Reason for contiued inpatient stay Substantial Risk for: inability to function and rapid decompensation Time Spent With Patient Time: Total time managing care of this patient today ____ minutes.
[2022-11-29 21:10] VITALS: BP 122/70; PULSE 60; RESP 16; TEMP 36.3; O2SAT 98
[2022-11-30] MEDS: diphenhydrAMINE HCL 25 MG CAPSULE 100 MG PO ×3 (07:42→21:17)
[2022-11-30 09:21] VITALS: BP 106/68; PULSE 66; TEMP 36.7; O2SAT 98
[2022-11-30 10:32] VITALS: BMI 21.8
[2022-11-30] MEDS: amLODIPine Besylate 5 MG TABLET PO (12:08)
[2022-11-30 12:09] VITALS: BP 136/80; PULSE 81; RESP 16; O2SAT 98
--- NOTE | 2022-11-30 14:10 | P.PNPSI_ITS ---
Subjective Subjective Date of Service: 11/30/22 Reason For Visit: Psychosis Interim History: calm, cooperative. no complaints or requests. states her hands are doing better. per staff, guarded. eating and sleeping well. pacing. not attending to ADLs. not attending groups. denies psych Sx. Mental Status Exam Mental Status Exam Narrative: Appearance:wearing hospital gown, fair hygiene, in NAD Behavior: no PMA/PMR. open, agreeable. TP:linear Speech:clear, regular rate/rhythm, volume, spontaneous Delusions: none expressed SI: none expressed HI: none expressed AH/VH: none expressed Insight/judgment: improving x 2. Diagnostics Vital Signs (24Hr): Vital Signs - 24 hr 11/29/22 21:10 11/30/22 09:21 11/30/22 12:09 Temperature 97.3 F 98.1 F Pulse Rate 60 66 81 Respiratory Rate 16 16 Blood Pressure 122/70 106/68 136/80 Pulse Oximetry 98 98 98 Oxygen Delivery Method Room Air Room Air Room Air BMI result Body Mass Index 21.8 Medications Medications Current Medications Acetaminophen (Acetaminophen 325 Mg Tablet) 650 mg PO Q6H PRN PRN Reason: Headache/Pain Mild Scale (1-3) Al Hydroxide/Mg Hydroxide (Magnesium Hydrox/Alum Hydrox 30 Ml Oral.Susp) 30 ml PO Q6H PRN PRN Reason: Heartburn/Nausea Amlodipine Besylate (Amlodipine Besylate 5 Mg Tablet) 5 mg PO BID [facility]; Protocol Last Admin: 11/30/22 12:08 Dose: 5 mg Benztropine Mesylate (Benztropine Mesylate 1 Mg Tablet) 1 mg PO TID PRN PRN Reason: Extrapyramidal Effects Last Admin: 11/20/22 11:52 Dose: 1 mg Diphenhydramine HCl (Diphenhydramine Hcl 25 Mg Capsule) 100 mg PO Q8H PRN PRN Reason: Restlessness Last Admin: 11/30/22 07:42 Dose: 100 mg Diphenhydramine HCl (Diphenhydramine Hcl 25 Mg Capsule) 100 mg PO BEDTIME [facility] Last Admin: 11/29/22 21:15 Dose: 100 mg Fluphenazine Decanoate (Fluphenazine Decanoate 25 Mg/Ml 5 Ml Vial) 25 mg IM Q14D@0900 [facility] Last Admin: 11/21/22 08:49 Dose: 25 mg Magnesium Hydroxide (Milk Of Magnesia 30 Ml Oral.Susp) 30 ml PO DAILY PRN PRN Reason: Constipation Propranolol HCl (Propranolol Hcl 10 Mg Tablet) 10 mg PO QID PRN; Protocol PRN Reason: restlessness Last Admin: 11/14/22 11:30 Dose: 10 mg Trazodone HCl (Trazodone Hcl 50 Mg Tablet) 50 mg PO BEDTIME PRN PRN Reason: Insomnia Last Admin: 11/23/22 22:15 Dose: 50 mg Allergies Allergies Allergy/AdvReac Type Severity Reaction Status Date / Time cashew nut Allergy Severe ANAPHYLAXIS Verified 01/31/22 11:11 peanut [Peanut] Allergy Severe ANAPHALAXIS Verified 01/31/22 11:11 Assessment & Plan Assessment & Plan (1) Schizophrenia: Status: Chronic Code(s): F20.9 - Schizophrenia, unspecified Assessment and Plan: back to taking medications while pending commitment- if doesn't have outpatient eern will likely continue to go off medications after dc Plan Ms. Guillaume is a 62 year-old woman with hx of schizophrenia. She was last psychiatrically admitted to on 10/2021 and discharged on prolixin 25mg IM [id number]. It appears that pt stopped prolixin about 4 months and gradually has been decompensating, presenting more paranoid and suspicious. She was found wondering on streets wearing mostly just bath rope, presented as paranoid. She was brought to [facility]- found to have hypertensive crisis, elevated TSH, refusing to eat because she believes food is poisoned, declining to have HTN treatment stating that there was cocaine in the water of the hospital. Pt given prolixin 12.5mg IM on 10/24/2022, next prolixin dose due on 11/07/22- higher dose of 25mg [id number]. This telegraphic typewriter installer saw pt while at [facility]. She appears now slightly more catatonic features including mutism, negativism along with underlying paranoid and persecutor delusions. PLAN 1. Admit on M3, Sect 12b, 15 minutes checks 2. Next prolixin 25mg IM [id number] due on 11/07/22- supposed to supplement with oral prolixin as there is 2 week delay onset. Back up haldol if refuses prolixin but pt with s/s of catatonia, may give ativan 3. Obtain collateral information from [place]- brother and guardian [phone]. 4. After care planning. 11/02- continue current medication. on sect 12, will file. 11/03 petition for sec 8 filed, pt now on section 7. continue current medication per joselyn's pt scheduled to received prolixin 25mg IM on 11/07/2022. 11/04 contnue current treatment plan 5 min checks 11/05 continue current treatment plan 11/06 continue current tx. Next prolixin Dec 25mg IM due tomorrow, will d/c oral prolixin by then. 11/07 received prolixin 25mg IM today, next one due on 11/21/2022. 11/08 continue tx. 11/09 continue tx. 11/10 continue tx. 11/11 continue tx. 11/12 continue tx. 11/13 continue tx. 11/14 added propanolol 10mg po QID prn akathesia (pt declined to schedule it), benadryl 100mg po q8h prn for same. pt declined ativan or cogentin. 11/15 continue tx. 11/16 continue tx. 11/17 continue tx. 11/18: no change in mgmt. some staff concern re involuntary mvmts of hand/arm. 11/19: no change in mgmt. some staff concern re involuntary mvmts of hand/arm. 11/20: no change in mgmt. some staff concern re involuntary mvmts of hand/arm. 11/21 continue tx. 11/22 continue tx. 11/23: continue current mgmt. 11/24: schedule benadryl 100 mg QHS for akathisia prophylaxis. otherwise continue current mgmt. 11/27: signed CV. otherwise no change to mgmt. 11/28: reporting decreased IVM. not restless at HS. no change to regimen. 11/29: no change in presentation or regimen. 11/30: as for 11/29. Reason for contiued inpatient stay Substantial Risk for: inability to function and rapid decompensation Time Spent With Patient Time: Total time managing care of this patient today ____ minutes.
[2022-11-30 21:10] VITALS: BP 108/55; PULSE 62; RESP 16; TEMP 36.7; O2SAT 97
[2022-12-01 08:00] VITALS: BP 126/73; PULSE 65; RESP 20; TEMP 36.6; O2SAT 99
[2022-12-01] MEDS: diphenhydrAMINE HCL 25 MG CAPSULE 100 MG PO ×3 (08:14→20:53)
[2022-12-01] MEDS: amLODIPine Besylate 5 MG TABLET PO (08:14)
--- NOTE | 2022-12-01 14:47 | HO.PSYCHPN ---
Subjective Subjective Date of Service: 12/01/22 Reason For Visit: Psychosis Interim History: no change in presentation, no requests or complaints. per staff, pacing much of the day. sleeping well. Mental Status Exam Mental Status Exam Narrative: Appearance:wearing hospital gown, fair hygiene, in NAD Behavior: no PMA/PMR. open, agreeable. TP:linear Speech:clear, regular rate/rhythm, volume, spontaneous Delusions: none expressed SI: none expressed HI: none expressed AH/VH: none expressed Insight/judgment: improving x 2. Diagnostics Vital Signs (24Hr): Vital Signs - 24 hr 11/30/22 21:10 12/01/22 08:00 Temperature 98.0 F 97.9 F Pulse Rate 62 65 Respiratory Rate 16 20 Blood Pressure 108/55 L 126/73 Pulse Oximetry 97 99 Oxygen Delivery Method Room Air Room Air BMI result Body Mass Index 21.8 Medications Medications Current Medications Acetaminophen (Acetaminophen 325 Mg Tablet) 650 mg PO Q6H PRN PRN Reason: Headache/Pain Mild Scale (1-3) Al Hydroxide/Mg Hydroxide (Magnesium Hydrox/Alum Hydrox 30 Ml Oral.Susp) 30 ml PO Q6H PRN PRN Reason: Heartburn/Nausea Amlodipine Besylate (Amlodipine Besylate 5 Mg Tablet) 5 mg PO BID [facility]; Protocol Last Admin: 12/01/22 08:14 Dose: 5 mg Benztropine Mesylate (Benztropine Mesylate 1 Mg Tablet) 1 mg PO TID PRN PRN Reason: Extrapyramidal Effects Last Admin: 11/20/22 11:52 Dose: 1 mg Diphenhydramine HCl (Diphenhydramine Hcl 25 Mg Capsule) 100 mg PO Q8H PRN PRN Reason: Restlessness Last Admin: 12/01/22 08:14 Dose: 100 mg Diphenhydramine HCl (Diphenhydramine Hcl 25 Mg Capsule) 100 mg PO BEDTIME [facility] Last Admin: 11/30/22 21:17 Dose: 100 mg Fluphenazine Decanoate (Fluphenazine Decanoate 25 Mg/Ml 5 Ml Vial) 25 mg IM Q14D@0900 [facility] Last Admin: 11/21/22 08:49 Dose: 25 mg Magnesium Hydroxide (Milk Of Magnesia 30 Ml Oral.Susp) 30 ml PO DAILY PRN PRN Reason: Constipation Propranolol HCl (Propranolol Hcl 10 Mg Tablet) 10 mg PO QID PRN; Protocol PRN Reason: restlessness Last Admin: 11/14/22 11:30 Dose: 10 mg Trazodone HCl (Trazodone Hcl 50 Mg Tablet) 50 mg PO BEDTIME PRN PRN Reason: Insomnia Last Admin: 11/23/22 22:15 Dose: 50 mg Allergies Allergies Allergy/AdvReac Type Severity Reaction Status Date / Time cashew nut Allergy Severe ANAPHYLAXIS Verified 01/31/22 11:11 peanut [Peanut] Allergy Severe ANAPHALAXIS Verified 01/31/22 11:11 Assessment & Plan Assessment & Plan (1) Schizophrenia: Status: Chronic Code(s): F20.9 - Schizophrenia, unspecified Assessment and Plan: back to taking medications while pending commitment- if doesn't have outpatient eren will likely continue to go off medications after dc Plan Ms. Guillaume is a 62 year-old woman with hx of schizophrenia. She was last psychiatrically admitted to on 10/2021 and discharged on prolixin 25mg IM [id number]. It appears that pt stopped prolixin about 4 months and gradually has been decompensating, presenting more paranoid and suspicious. She was found wondering on streets wearing mostly just bath rope, presented as paranoid. She was brought to [facility]- found to have hypertensive crisis, elevated TSH, refusing to eat because she believes food is poisoned, declining to have HTN treatment stating that there was cocaine in the water of the hospital. Pt given prolixin 12.5mg IM on 10/24/2022, next prolixin dose due on 11/07/22- higher dose of 25mg [id number]. This global technical writer saw pt while at [facility]. She appears now slightly more catatonic features including mutism, negativism along with underlying paranoid and persecutor delusions. PLAN 1. Admit on M3, Sect 12b, 15 minutes checks 2. Next prolixin 25mg IM [id number] due on 11/07/22- supposed to supplement with oral prolixin as there is 2 week delay onset. Back up haldol if refuses prolixin but pt with s/s of catatonia, may give ativan 3. Obtain collateral information from [place]- brother and guardian [phone]. 4. After care planning. 11/02- continue current medication. on sect 12, will file. 11/03 petition for sec 8 filed, pt now on section 7. continue current medication per joselyn's pt scheduled to received prolixin 25mg IM on 11/07/2022. 11/04 contnue current treatment plan 5 min checks 11/05 continue current treatment plan 11/06 continue current tx. Next prolixin Dec 25mg IM due tomorrow, will d/c oral prolixin by then. 11/07 received prolixin 25mg IM today, next one due on 11/21/2022. 11/08 continue tx. 11/09 continue tx. 11/10 continue tx. 11/11 continue tx. 11/12 continue tx. 11/13 continue tx. 11/14 added propanolol 10mg po QID prn akathesia (pt declined to schedule it), benadryl 100mg po q8h prn for same. pt declined ativan or cogentin. 11/15 continue tx. 11/16 continue tx. 11/17 continue tx. 11/18: no change in mgmt. some staff concern re involuntary mvmts of hand/arm. 11/19: no change in mgmt. some staff concern re involuntary mvmts of hand/arm. 11/20: no change in mgmt. some staff concern re involuntary mvmts of hand/arm. 11/21 continue tx. 11/22 continue tx. 11/23: continue current mgmt. 11/24: schedule benadryl 100 mg QHS for akathisia prophylaxis. otherwise continue current mgmt. 11/27: signed CV. otherwise no change to mgmt. 11/28: reporting decreased IVM. not restless at HS. no change to regimen. 11/29: no change in presentation or regimen. 11/30: as for 11/29. 12/01: no change in presentation or mgmt. Reason for contiued inpatient stay Substantial Risk for: inability to function and rapid decompensation Time Spent With Patient Time: Total time managing care of this patient today ____ minutes.
[2022-12-01 20:33] VITALS: BP 105/58; PULSE 55; RESP 16; TEMP 36.8
[2022-12-02] MEDS: diphenhydrAMINE HCL 25 MG CAPSULE 100 MG PO ×3 (08:45→20:46)
[2022-12-02 09:14] VITALS: BP 116/66; PULSE 70; RESP 16; TEMP 36.6; O2SAT 95
--- NOTE | 2022-12-02 10:57 | P.PNPSI_ITS ---
Subjective Subjective Date of Service: 12/02/22 Reason For Visit: Psychosis Subjective Notes: Conditional Voluntary Healthcare Proxy: No Interim History: Patient was seen and discussed in rounds today. Records and plans were reviewed. She continues to deal with her anxiety by pacing. Eating and sleeping adequately. She is preparing for discharge after receiving her injectable neuroleptics next Sunday. No changes were made today Medication Compliance: Yes Side effects from medications: No Attending Groups: Yes Review of Systems Review of Systems Yes all other systems are reviewed and are negative Psychiatric: Reports no additional psychiatric complaints Mental Status Exam Mental Status Exam Narrative: In today's visit she is alert, oriented and pleasant. Normal speech. Good eye contact. Affect is appropriate and constricted. Moderate anxiety present. No signs of psychosis. No delusions. No SI. Cognitively is intact. Judgment is intact Diagnostics Vital Signs (24Hr): Vital Signs - 24 hr 12/01/22 20:33 12/02/22 09:14 Temperature 98.3 F 97.8 F Pulse Rate 55 70 Respiratory Rate 16 16 Blood Pressure 105/58 L 116/66 Pulse Oximetry 95 Oxygen Delivery Method Room Air Room Air BMI result Body Mass Index 21.8 Medications Medications Current Medications Acetaminophen (Acetaminophen 325 Mg Tablet) 650 mg PO Q6H PRN PRN Reason: Headache/Pain Mild Scale (1-3) Al Hydroxide/Mg Hydroxide (Magnesium Hydrox/Alum Hydrox 30 Ml Oral.Susp) 30 ml PO Q6H PRN PRN Reason: Heartburn/Nausea Amlodipine Besylate (Amlodipine Besylate 5 Mg Tablet) 5 mg PO BID SARABJIT; Protocol Last Admin: 12/02/22 09:14 Dose: Not Given Benztropine Mesylate (Benztropine Mesylate 1 Mg Tablet) 1 mg PO TID PRN PRN Reason: Extrapyramidal Effects Last Admin: 11/20/22 11:52 Dose: 1 mg Diphenhydramine HCl (Diphenhydramine Hcl 25 Mg Capsule) 100 mg PO Q8H PRN PRN Reason: Restlessness Last Admin: 12/01/22 16:04 Dose: 100 mg Diphenhydramine HCl (Diphenhydramine Hcl 25 Mg Capsule) 100 mg PO BEDTIME SARABJIT Last Admin: 12/01/22 20:53 Dose: 100 mg Fluphenazine Decanoate (Fluphenazine Decanoate 25 Mg/Ml 5 Ml Vial) 25 mg IM Q14D@0900 [facility] Last Admin: 11/21/22 08:49 Dose: 25 mg Magnesium Hydroxide (Milk Of Magnesia 30 Ml Oral.Susp) 30 ml PO DAILY PRN PRN Reason: Constipation Propranolol HCl (Propranolol Hcl 10 Mg Tablet) 10 mg PO QID PRN; Protocol PRN Reason: restlessness Last Admin: 11/14/22 11:30 Dose: 10 mg Trazodone HCl (Trazodone Hcl 50 Mg Tablet) 50 mg PO BEDTIME PRN PRN Reason: Insomnia Last Admin: 11/23/22 22:15 Dose: 50 mg Allergies Allergies Allergy/AdvReac Type Severity Reaction Status Date / Time cashew nut Allergy Severe ANAPHYLAXIS Verified 01/31/22 11:11 peanut [Peanut] Allergy Severe ANAPHALAXIS Verified 01/31/22 11:11 Assessment & Plan Assessment & Plan (1) Schizophrenia: Status: Chronic Code(s): F20.9 - Schizophrenia, unspecified Assessment and Plan: back to taking medications while pending commitment- if doesn't have outpatient eren will likely continue to go off medications after dc Plan Ms. Guillaume is a 62 year-old woman with hx of schizophrenia. She was last psychiatrically admitted to on 10/2021 and discharged on prolixin 25mg IM [id number]. It appears that pt stopped prolixin about 4 months and gradually has been decompensating, presenting more paranoid and suspicious. She was found wondering on streets wearing mostly just bath rope, presented as paranoid. She was brought to [facility]- found to have hypertensive crisis, elevated TSH, refusing to eat because she believes food is poisoned, declining to have HTN treatment stating that there was cocaine in the water of the hospital. Pt given prolixin 12.5mg IM on 10/24/2022, next prolixin dose due on 11/07/22- higher dose of 25mg [id number]. This display card writer saw pt while at [facility]. She appears now slightly more catatonic features including mutism, negativism along with underlying paranoid and persecutor delusions. PLAN 1. Admit on M3, Sect 12b, 15 minutes checks 2. Next prolixin 25mg IM [id number] due on 11/07/22- supposed to supplement with oral prolixin as there is 2 week delay onset. Back up haldol if refuses prolixin but pt with s/s of catatonia, may give ativan 3. Obtain collateral information from [place]- brother and guardian [phone]. 4. After care planning. 11/02- continue current medication. on sect 12, will file. 11/03 petition for sec 8 filed, pt now on section 7. continue current medication per joselyn's pt scheduled to received prolixin 25mg IM on 11/07/2022. 11/04 contnue current treatment plan 5 min checks 11/05 continue current treatment plan 11/06 continue current tx. Next prolixin Dec 25mg IM due tomorrow, will d/c oral prolixin by then. 11/07 received prolixin 25mg IM today, next one due on 11/21/2022. 11/08 continue tx. 11/09 continue tx. 11/10 continue tx. 11/11 continue tx. 11/12 continue tx. 11/13 continue tx. 11/14 added propanolol 10mg po QID prn akathesia (pt declined to schedule it), benadryl 100mg po q8h prn for same. pt declined ativan or cogentin. 11/15 continue tx. 11/16 continue tx. 11/17 continue tx. 11/18: no change in mgmt. some staff concern re involuntary mvmts of hand/arm. 11/19: no change in mgmt. some staff concern re involuntary mvmts of hand/arm. 11/20: no change in mgmt. some staff concern re involuntary mvmts of hand/arm. 11/21 continue tx. 11/22 continue tx. 11/23: continue current mgmt. 11/24: schedule benadryl 100 mg QHS for akathisia prophylaxis. otherwise continue current mgmt. 11/27: signed CV. otherwise no change to mgmt. 11/28: reporting decreased IVM. not restless at HS. no change to regimen. 11/29: no change in presentation or regimen. 11/30: as for 11/29. 12/01: no change in presentation or mgmt. 12/02: Continue current regimen and plans Reason for contiued inpatient stay Substantial Risk for: med/psych decompensation Time Spent With Patient Time: Total time managing care of this patient today ____ minutes.
[2022-12-02] MEDS: amLODIPine Besylate 5 MG TABLET PO ×2 (12:09→20:46)
--- NOTE | 2022-12-02 12:13 | PC.NURSE ---
Dr. Tay authozized administration of Norvasc now, patient previously refused due to BP reading.
[2022-12-02 12:14] VITALS: BP 146/76; PULSE 68
[2022-12-02 20:40] VITALS: BP 134/72; PULSE 63; RESP 16; TEMP 36.8; O2SAT 98
[2022-12-03 08:48] VITALS: BP 120/69; PULSE 59; RESP 18; TEMP 36.5; O2SAT 98
[2022-12-03] MEDS: amLODIPine Besylate 5 MG TABLET PO ×2 (08:49→20:01)
--- NOTE | 2022-12-03 09:51 | P.PNPSI_ITS ---
Subjective Subjective Date of Service: 12/03/22 Reason For Visit: Psychosis Subjective Notes: Conditional Voluntary Healthcare Proxy: No Interim History: Patient was seen and discussed in rounds today. Records and plans were reviewed. She has been stable and is doing better. She is using Benadryl for extra pyramidal symptoms. She paces as a way of coping with anxiety also. Eating and sleeping adequately. No other complaints or side effects. No changes were made today Medication Compliance: Yes Side effects from medications: No Attending Groups: Yes Review of Systems Review of Systems Yes all other systems are reviewed and are negative Psychiatric: Reports no additional psychiatric complaints Diagnostics Vital Signs (24Hr): Vital Signs - 24 hr 12/02/22 09:14 12/02/22 12:14 12/02/22 20:40 Temperature 97.8 F 98.3 F Pulse Rate 70 68 63 Respiratory Rate 16 16 Blood Pressure 116/66 146/76 H 134/72 Pulse Oximetry 95 98 Oxygen Delivery Method Room Air Room Air 12/03/22 08:48 Temperature 97.7 F Pulse Rate 59 Respiratory Rate 18 Blood Pressure 120/69 Pulse Oximetry 98 Oxygen Delivery Method Room Air BMI result Body Mass Index 21.8 Medications Medications Current Medications Acetaminophen (Acetaminophen 325 Mg Tablet) 650 mg PO Q6H PRN PRN Reason: Headache/Pain Mild Scale (1-3) Al Hydroxide/Mg Hydroxide (Magnesium Hydrox/Alum Hydrox 30 Ml Oral.Susp) 30 ml PO Q6H PRN PRN Reason: Heartburn/Nausea Amlodipine Besylate (Amlodipine Besylate 5 Mg Tablet) 5 mg PO BID SARABJIT; Protocol Last Admin: 12/03/22 08:49 Dose: 5 mg Benztropine Mesylate (Benztropine Mesylate 1 Mg Tablet) 1 mg PO TID PRN PRN Reason: Extrapyramidal Effects Last Admin: 11/20/22 11:52 Dose: 1 mg Diphenhydramine HCl (Diphenhydramine Hcl 25 Mg Capsule) 100 mg PO Q8H PRN PRN Reason: Restlessness Last Admin: 12/02/22 16:53 Dose: 100 mg Diphenhydramine HCl (Diphenhydramine Hcl 25 Mg Capsule) 100 mg PO BEDTIME SARABJIT Last Admin: 12/02/22 20:46 Dose: 100 mg Fluphenazine Decanoate (Fluphenazine Decanoate 25 Mg/Ml 5 Ml Vial) 25 mg IM Q14D@0900 [facility] Last Admin: 11/21/22 08:49 Dose: 25 mg Magnesium Hydroxide (Milk Of Magnesia 30 Ml Oral.Susp) 30 ml PO DAILY PRN PRN Reason: Constipation Propranolol HCl (Propranolol Hcl 10 Mg Tablet) 10 mg PO QID PRN; Protocol PRN Reason: restlessness Last Admin: 11/14/22 11:30 Dose: 10 mg Trazodone HCl (Trazodone Hcl 50 Mg Tablet) 50 mg PO BEDTIME PRN PRN Reason: Insomnia Last Admin: 11/23/22 22:15 Dose: 50 mg Allergies Allergies Allergy/AdvReac Type Severity Reaction Status Date / Time cashew nut Allergy Severe ANAPHYLAXIS Verified 01/31/22 11:11 peanut [Peanut] Allergy Severe ANAPHALAXIS Verified 01/31/22 11:11 Assessment & Plan Assessment & Plan (1) Schizophrenia: Status: Chronic Code(s): F20.9 - Schizophrenia, unspecified Assessment and Plan: back to taking medications while pending commitment- if doesn't have outpatient eren will likely continue to go off medications after dc Plan Ms. Guillaume is a 62 year-old woman with hx of schizophrenia. She was last psychiatrically admitted to on 10/2021 and discharged on prolixin 25mg IM [id number]. It appears that pt stopped prolixin about 4 months and gradually has been decompensating, presenting more paranoid and suspicious. She was found wondering on streets wearing mostly just bath rope, presented as paranoid. She was brought to [facility]- found to have hypertensive crisis, elevated TSH, refusing to eat because she believes food is poisoned, declining to have HTN treatment stating that there was cocaine in the water of the hospital. Pt given prolixin 12.5mg IM on 10/24/2022, next prolixin dose due on 11/07/22- higher dose of 25mg [id number]. This insurance writer saw pt while at [facility]. She appears now slightly more catatonic features including mutism, negativism along with underlying paranoid and persecutor delusions. PLAN 1. Admit on M3, Sect 12b, 15 minutes checks 2. Next prolixin 25mg IM [id number] due on 11/07/22- supposed to supplement with oral prolixin as there is 2 week delay onset. Back up haldol if refuses prolixin but pt with s/s of catatonia, may give ativan 3. Obtain collateral information from [place]- brother and guardian [phone]. 4. After care planning. 11/02- continue current medication. on sect 12, will file. 11/03 petition for sec 8 filed, pt now on section 7. continue current medication per joselyn's pt scheduled to received prolixin 25mg IM on 11/07/2022. 11/04 contnue current treatment plan 5 min checks 11/05 continue current treatment plan 11/06 continue current tx. Next prolixin Dec 25mg IM due tomorrow, will d/c oral prolixin by then. 11/07 received prolixin 25mg IM today, next one due on 11/21/2022. 11/08 continue tx. 11/09 continue tx. 11/10 continue tx. 11/11 continue tx. 11/12 continue tx. 11/13 continue tx. 11/14 added propanolol 10mg po QID prn akathesia (pt declined to schedule it), benadryl 100mg po q8h prn for same. pt declined ativan or cogentin. 11/15 continue tx. 11/16 continue tx. 11/17 continue tx. 11/18: no change in mgmt. some staff concern re involuntary mvmts of hand/arm. 11/19: no change in mgmt. some staff concern re involuntary mvmts of hand/arm. 11/20: no change in mgmt. some staff concern re involuntary mvmts of hand/arm. 11/21 continue tx. 11/22 continue tx. 11/23: continue current mgmt. 11/24: schedule benadryl 100 mg QHS for akathisia prophylaxis. otherwise continue current mgmt. 11/27: signed CV. otherwise no change to mgmt. 11/28: reporting decreased IVM. not restless at HS. no change to regimen. 11/29: no change in presentation or regimen. 11/30: as for 11/29. 12/01: no change in presentation or mgmt. 12/02: Continue current regimen and plans 12/03: Continue current plans and regimen Reason for contiued inpatient stay Substantial Risk for: med/psych decompensation Time Spent With Patient Time: Total time managing care of this patient today ____ minutes.
[2022-12-03] MEDS: diphenhydrAMINE HCL 25 MG CAPSULE 100 MG PO ×2 (10:38→18:52)
[2022-12-03 20:00] VITALS: BP 117/64; PULSE 62; RESP 16; TEMP 36.3; O2SAT 98
[2022-12-03] MEDS: traZODone HCL 50 MG TABLET PO ×2 (21:00→21:54)
[2022-12-04 08:45] VITALS: BP 105/67; PULSE 56; RESP 18; TEMP 36.7; O2SAT 97
[2022-12-04] MEDS: diphenhydrAMINE HCL 25 MG CAPSULE 100 MG PO ×2 (09:23→20:43)
[2022-12-04 14:03] VITALS: BP 114/60; PULSE 67; O2SAT 98
--- NOTE | 2022-12-04 14:58 | HO.PSYCHPN ---
Subjective Subjective Date of Service: 12/04/22 Reason For Visit: Psychosis Interim History: walking the halls. listening to music. no change in presentation or behavior. per staff, isolative, pleasant. guarded. denies Sx. not attending groups. some DFA. slept after 10 pm after repeat trazodone. Mental Status Exam Mental Status Exam Narrative: Appearance:wearing hospital gown, fair hygiene, in NAD Behavior: no PMA/PMR. open, agreeable. TP:linear Speech:clear, regular rate/rhythm, volume, spontaneous Delusions: none expressed SI: none expressed HI: none expressed AH/VH: none expressed Insight/judgment: improving x 2. Diagnostics Vital Signs (24Hr): Vital Signs - 24 hr 12/03/22 20:00 12/04/22 08:45 12/04/22 14:03 Temperature 97.3 F 98.1 F Pulse Rate 62 56 67 Respiratory Rate 16 18 Blood Pressure 117/64 105/67 114/60 Pulse Oximetry 98 97 98 Oxygen Delivery Method Room Air Room Air Room Air BMI result Body Mass Index 21.8 Medications Medications Current Medications Acetaminophen (Acetaminophen 325 Mg Tablet) 650 mg PO Q6H PRN PRN Reason: Headache/Pain Mild Scale (1-3) Al Hydroxide/Mg Hydroxide (Magnesium Hydrox/Alum Hydrox 30 Ml Oral.Susp) 30 ml PO Q6H PRN PRN Reason: Heartburn/Nausea Amlodipine Besylate (Amlodipine Besylate 5 Mg Tablet) 5 mg PO BID [facility]; Protocol Last Admin: 12/04/22 12:14 Dose: Not Given Benztropine Mesylate (Benztropine Mesylate 1 Mg Tablet) 1 mg PO TID PRN PRN Reason: Extrapyramidal Effects Last Admin: 11/20/22 11:52 Dose: 1 mg Diphenhydramine HCl (Diphenhydramine Hcl 25 Mg Capsule) 100 mg PO Q8H PRN PRN Reason: Restlessness Last Admin: 12/04/22 09:23 Dose: 100 mg Diphenhydramine HCl (Diphenhydramine Hcl 25 Mg Capsule) 100 mg PO BEDTIME [facility] Last Admin: 12/03/22 20:02 Dose: Not Given Fluphenazine Decanoate (Fluphenazine Decanoate 25 Mg/Ml 5 Ml Vial) 25 mg IM Q14D@0900 [facility] Last Admin: 11/21/22 08:49 Dose: 25 mg Magnesium Hydroxide (Milk Of Magnesia 30 Ml Oral.Susp) 30 ml PO DAILY PRN PRN Reason: Constipation Propranolol HCl (Propranolol Hcl 10 Mg Tablet) 10 mg PO QID PRN; Protocol PRN Reason: restlessness Last Admin: 11/14/22 11:30 Dose: 10 mg Trazodone HCl (Trazodone Hcl 50 Mg Tablet) 50 mg PO BEDTIME PRN PRN Reason: Insomnia Last Admin: 12/03/22 21:54 Dose: 50 mg Allergies Allergies Allergy/AdvReac Type Severity Reaction Status Date / Time cashew nut Allergy Severe ANAPHYLAXIS Verified 01/31/22 11:11 peanut [Peanut] Allergy Severe ANAPHALAXIS Verified 01/31/22 11:11 Assessment & Plan Assessment & Plan (1) Schizophrenia: Status: Chronic Code(s): F20.9 - Schizophrenia, unspecified Assessment and Plan: back to taking medications while pending commitment- if doesn't have outpatient eren will likely continue to go off medications after dc Plan Ms. Guillaume is a 62 year-old woman with hx of schizophrenia. She was last psychiatrically admitted to on 10/2021 and discharged on prolixin 25mg IM [id number]. It appears that pt stopped prolixin about 4 months and gradually has been decompensating, presenting more paranoid and suspicious. She was found wondering on streets wearing mostly just bath rope, presented as paranoid. She was brought to [facility]- found to have hypertensive crisis, elevated TSH, refusing to eat because she believes food is poisoned, declining to have HTN treatment stating that there was cocaine in the water of the hospital. Pt given prolixin 12.5mg IM on 10/24/2022, next prolixin dose due on 11/07/22- higher dose of 25mg [id number]. This technical document writer saw pt while at [facility]. She appears now slightly more catatonic features including mutism, negativism along with underlying paranoid and persecutor delusions. PLAN 1. Admit on M3, Sect 12b, 15 minutes checks 2. Next prolixin 25mg IM [id number] due on 11/07/22- supposed to supplement with oral prolixin as there is 2 week delay onset. Back up haldol if refuses prolixin but pt with s/s of catatonia, may give ativan 3. Obtain collateral information from [place]- brother and guardian [phone]. 4. After care planning. 11/02- continue current medication. on sect 12, will file. 11/03 petition for sec 8 filed, pt now on section 7. continue current medication per joselyn's pt scheduled to received prolixin 25mg IM on 11/07/2022. 11/04 contnue current treatment plan 5 min checks 11/05 continue current treatment plan 11/06 continue current tx. Next prolixin Dec 25mg IM due tomorrow, will d/c oral prolixin by then. 11/07 received prolixin 25mg IM today, next one due on 11/21/2022. 11/08 continue tx. 11/09 continue tx. 11/10 continue tx. 11/11 continue tx. 11/12 continue tx. 11/13 continue tx. 11/14 added propanolol 10mg po QID prn akathesia (pt declined to schedule it), benadryl 100mg po q8h prn for same. pt declined ativan or cogentin. 11/15 continue tx. 11/16 continue tx. 11/17 continue tx. 11/18: no change in mgmt. some staff concern re involuntary mvmts of hand/arm. 11/19: no change in mgmt. some staff concern re involuntary mvmts of hand/arm. 11/20: no change in mgmt. some staff concern re involuntary mvmts of hand/arm. 11/21 continue tx. 11/22 continue tx. 11/23: continue current mgmt. 11/24: schedule benadryl 100 mg QHS for akathisia prophylaxis. otherwise continue current mgmt. 11/27: signed CV. otherwise no change to mgmt. 11/28: reporting decreased IVM. not restless at HS. no change to regimen. 11/29: no change in presentation or regimen. 11/30: as for 11/29. 12/01: no change in presentation or mgmt. 12/02: Continue current regimen and plans 12/03: Continue current plans and regimen 12/04: no change in presentation or mgmt. PETERSON tomorrow. Reason for contiued inpatient stay Substantial Risk for: inability to function and rapid decompensation Time Spent With Patient Time: Total time managing care of this patient today __15__ minutes.
[2022-12-04 19:23] VITALS: BP 113/61; PULSE 64; RESP 18; O2SAT 98
[2022-12-04 20:40] VITALS: BP 126/62; PULSE 61; RESP 16; TEMP 36.4; O2SAT 97
[2022-12-04] MEDS: amLODIPine Besylate 5 MG TABLET PO (20:42)
[2022-12-04] MEDS: traZODone HCL 50 MG TABLET PO ×2 (20:42→21:58)
[2022-12-05] MEDS: diphenhydrAMINE HCL 25 MG CAPSULE 100 MG PO ×3 (08:40→20:07)
[2022-12-05 08:58] VITALS: BP 105/57; PULSE 59; TEMP 36.4; O2SAT 98
--- NOTE | 2022-12-05 16:14 | HO.PSYCHPN ---
Subjective Subjective Date of Service: 12/05/22 Reason For Visit: Psychosis Interim History: no change in presentation. awaiting PETERSON injection today. informed jeremi will be resuming her care tomorrow. per staff, superficial. not attending groups. Mental Status Exam Mental Status Exam Narrative: Appearance: street clothes, fair hygiene, in NAD Behavior: no PMA/PMR. open, agreeable. TP:linear Speech:clear, regular rate/rhythm, volume, spontaneous Delusions: none expressed SI: none expressed HI: none expressed AH/VH: none expressed Insight/judgment: improving x 2. Diagnostics Vital Signs (24Hr): Vital Signs - 24 hr 12/04/22 19:23 12/04/22 20:40 12/05/22 08:58 Temperature 97.6 F 97.6 F Pulse Rate 64 61 59 Respiratory Rate 18 16 Blood Pressure 113/61 126/62 105/57 L Pulse Oximetry 98 97 98 Oxygen Delivery Method Room Air Room Air Room Air BMI result Body Mass Index 21.8 Medications Medications Current Medications Acetaminophen (Acetaminophen 325 Mg Tablet) 650 mg PO Q6H PRN PRN Reason: Headache/Pain Mild Scale (1-3) Al Hydroxide/Mg Hydroxide (Magnesium Hydrox/Alum Hydrox 30 Ml Oral.Susp) 30 ml PO Q6H PRN PRN Reason: Heartburn/Nausea Amlodipine Besylate (Amlodipine Besylate 5 Mg Tablet) 5 mg PO BID [facility]; Protocol Last Admin: 12/05/22 09:08 Dose: Not Given Benztropine Mesylate (Benztropine Mesylate 1 Mg Tablet) 1 mg PO TID PRN PRN Reason: Extrapyramidal Effects Last Admin: 11/20/22 11:52 Dose: 1 mg Diphenhydramine HCl (Diphenhydramine Hcl 25 Mg Capsule) 100 mg PO Q8H PRN PRN Reason: Restlessness Last Admin: 12/05/22 08:40 Dose: 100 mg Diphenhydramine HCl (Diphenhydramine Hcl 25 Mg Capsule) 100 mg PO BEDTIME [facility] Last Admin: 12/04/22 20:43 Dose: 100 mg Fluphenazine Decanoate (Fluphenazine Decanoate 25 Mg/Ml 5 Ml Vial) 25 mg IM Q14D@0900 [facility] Last Admin: 11/21/22 08:49 Dose: 25 mg Magnesium Hydroxide (Milk Of Magnesia 30 Ml Oral.Susp) 30 ml PO DAILY PRN PRN Reason: Constipation Propranolol HCl (Propranolol Hcl 10 Mg Tablet) 10 mg PO QID PRN; Protocol PRN Reason: restlessness Last Admin: 11/14/22 11:30 Dose: 10 mg Trazodone HCl (Trazodone Hcl 50 Mg Tablet) 50 mg PO BEDTIME PRN PRN Reason: Insomnia Last Admin: 12/04/22 21:58 Dose: 50 mg Allergies Allergies Allergy/AdvReac Type Severity Reaction Status Date / Time cashew nut Allergy Severe ANAPHYLAXIS Verified 01/31/22 11:11 peanut [Peanut] Allergy Severe ANAPHALAXIS Verified 01/31/22 11:11 Assessment & Plan Assessment & Plan (1) Schizophrenia: Status: Chronic Code(s): F20.9 - Schizophrenia, unspecified Assessment and Plan: back to taking medications while pending commitment- if doesn't have outpatient eren will likely continue to go off medications after dc Plan Ms. Guillaume is a 62 year-old woman with hx of schizophrenia. She was last psychiatrically admitted to on 10/2021 and discharged on prolixin 25mg IM [id number]. It appears that pt stopped prolixin about 4 months and gradually has been decompensating, presenting more paranoid and suspicious. She was found wondering on streets wearing mostly just bath rope, presented as paranoid. She was brought to [facility]- found to have hypertensive crisis, elevated TSH, refusing to eat because she believes food is poisoned, declining to have HTN treatment stating that there was cocaine in the water of the hospital. Pt given prolixin 12.5mg IM on 10/24/2022, next prolixin dose due on 11/07/22- higher dose of 25mg [id number]. This internal communications writer saw pt while at [facility]. She appears now slightly more catatonic features including mutism, negativism along with underlying paranoid and persecutor delusions. PLAN 1. Admit on M3, Sect 12b, 15 minutes checks 2. Next prolixin 25mg IM [id number] due on 11/07/22- supposed to supplement with oral prolixin as there is 2 week delay onset. Back up haldol if refuses prolixin but pt with s/s of catatonia, may give ativan 3. Obtain collateral information from [place]- brother and guardian [phone]. 4. After care planning. 11/02- continue current medication. on sect 12, will file. 11/03 petition for sec 8 filed, pt now on section 7. continue current medication per joselyn's pt scheduled to received prolixin 25mg IM on 11/07/2022. 11/04 contnue current treatment plan 5 min checks 11/05 continue current treatment plan 11/06 continue current tx. Next prolixin Dec 25mg IM due tomorrow, will d/c oral prolixin by then. 11/07 received prolixin 25mg IM today, next one due on 11/21/2022. 11/08 continue tx. 11/09 continue tx. 11/10 continue tx. 11/11 continue tx. 11/12 continue tx. 11/13 continue tx. 11/14 added propanolol 10mg po QID prn akathesia (pt declined to schedule it), benadryl 100mg po q8h prn for same. pt declined ativan or cogentin. 11/15 continue tx. 11/16 continue tx. 11/17 continue tx. 11/18: no change in mgmt. some staff concern re involuntary mvmts of hand/arm. 11/19: no change in mgmt. some staff concern re involuntary mvmts of hand/arm. 11/20: no change in mgmt. some staff concern re involuntary mvmts of hand/arm. 11/21 continue tx. 11/22 continue tx. 11/23: continue current mgmt. 11/24: schedule benadryl 100 mg QHS for akathisia prophylaxis. otherwise continue current mgmt. 11/27: signed CV. otherwise no change to mgmt. 11/28: reporting decreased IVM. not restless at HS. no change to regimen. 11/29: no change in presentation or regimen. 11/30: as for 11/29. 12/01: no change in presentation or mgmt. 12/02: Continue current regimen and plans 12/03: Continue current plans and regimen 12/04: no change in presentation or mgmt. PETERSON tomorrow. 12/05: no change. PETERSON today. Reason for contiued inpatient stay Substantial Risk for: inability to function and rapid decompensation Time Spent With Patient Time: Total time managing care of this patient today __20__ minutes.
[2022-12-05] MEDS: fluPHENAZine decanoate 25 MG/ML 5 ML VIAL IM (16:41)
[2022-12-05 20:00] VITALS: BP 111/60; PULSE 62; RESP 16; TEMP 36.6; O2SAT 97
[2022-12-05] MEDS: traZODone HCL 50 MG TABLET PO (20:07)
--- NOTE | 2022-12-05 20:43 | PC.NURSE ---
Vaishali declined her HS medication - Norvasc. Patient's HR -62, and BP - 111/60
[2022-12-06 08:37] VITALS: BP 133/62; PULSE 60; RESP 16; TEMP 36.4; O2SAT 97
[2022-12-06] MEDS: diphenhydrAMINE HCL 25 MG CAPSULE 100 MG PO ×3 (08:40→19:55)
--- NOTE | 2022-12-06 09:17 | HO.PSYCHPN ---
Subjective Subjective Date of Service: 12/06/22 Reason For Visit: Psychosis Subjective Notes: Conditional Voluntary Interim History: Pt superficially cooperative. She denies any concerns in terms of SI/HI/VH/AH. She is taking medications as prescribed and sleeping through the night. Pt met with OP clinician and did report to her that hospital giving her placebo IM. 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 No behavioral concerns. Medication Compliance: Yes Review of Systems Review of Systems Yes all other systems are reviewed and are negative Psychiatric: Reports no additional psychiatric complaints Mental Status Exam Mental Status Exam Narrative: Appearance: street clothes, fair hygiene, in NAD Behavior: no PMA/PMR. open, agreeable. TP:linear Speech:clear, regular rate/rhythm, volume, spontaneous Delusions: none expressed SI: none expressed HI: none expressed AH/VH: none expressed Insight/judgment: improving x 2. Diagnostics Vital Signs (24Hr): Vital Signs - 24 hr 12/06/22 20:01 12/07/22 09:08 Temperature 97.9 F 98.2 F Pulse Rate 66 58 Respiratory Rate 16 16 Blood Pressure 121/71 128/73 Pulse Oximetry 97 98 Oxygen Delivery Method Room Air Room Air BMI result Body Mass Index 22.0 Medications Medications Current Medications Acetaminophen (Acetaminophen 325 Mg Tablet) 650 mg PO Q6H PRN PRN Reason: Headache/Pain Mild Scale (1-3) Al Hydroxide/Mg Hydroxide (Magnesium Hydrox/Alum Hydrox 30 Ml Oral.Susp) 30 ml PO Q6H PRN PRN Reason: Heartburn/Nausea Amlodipine Besylate (Amlodipine Besylate 5 Mg Tablet) 5 mg PO BID SARABJIT; Protocol Last Admin: 12/06/22 20:19 Dose: Not Given Benztropine Mesylate (Benztropine Mesylate 1 Mg Tablet) 1 mg PO TID PRN PRN Reason: Extrapyramidal Effects Last Admin: 11/20/22 11:52 Dose: 1 mg Diphenhydramine HCl (Diphenhydramine Hcl 25 Mg Capsule) 100 mg PO Q8H PRN PRN Reason: Restlessness Last Admin: 12/07/22 08:46 Dose: 100 mg Diphenhydramine HCl (Diphenhydramine Hcl 25 Mg Capsule) 100 mg PO BEDTIME SARABJIT Last Admin: 12/06/22 19:55 Dose: 100 mg Fluphenazine Decanoate (Fluphenazine Decanoate 25 Mg/Ml 5 Ml Vial) 25 mg IM Q14D@0900 [facility] Last Admin: 12/05/22 16:41 Dose: 25 mg Magnesium Hydroxide (Milk Of Magnesia 30 Ml Oral.Susp) 30 ml PO DAILY PRN PRN Reason: Constipation Propranolol HCl (Propranolol Hcl 10 Mg Tablet) 10 mg PO QID PRN; Protocol PRN Reason: restlessness Last Admin: 11/14/22 11:30 Dose: 10 mg Trazodone HCl (Trazodone Hcl 50 Mg Tablet) 50 mg PO BEDTIME PRN PRN Reason: Insomnia Last Admin: 12/06/22 19:58 Dose: 50 mg Allergies Allergies Allergy/AdvReac Type Severity Reaction Status Date / Time cashew nut Allergy Severe ANAPHYLAXIS Verified 01/31/22 11:11 peanut [Peanut] Allergy Severe ANAPHALAXIS Verified 01/31/22 11:11 Assessment & Plan Assessment & Plan (1) Schizophrenia: Status: Chronic Code(s): F20.9 - Schizophrenia, unspecified Assessment and Plan: back to taking medications while pending commitment- if doesn't have outpatient eren will likely continue to go off medications after dc Plan Ms. Guillaume is a 62 year-old woman with hx of schizophrenia. She was last psychiatrically admitted to on 10/2021 and discharged on prolixin 25mg IM [id number]. It appears that pt stopped prolixin about 4 months and gradually has been decompensating, presenting more paranoid and suspicious. She was found wondering on streets wearing mostly just bath rope, presented as paranoid. She was brought to [facility]- found to have hypertensive crisis, elevated TSH, refusing to eat because she believes food is poisoned, declining to have HTN treatment stating that there was cocaine in the water of the hospital. Pt given prolixin 12.5mg IM on 10/24/2022, next prolixin dose due on 11/07/22- higher dose of 25mg [id number]. This rfp writer saw pt while at [facility]. She appears now slightly more catatonic features including mutism, negativism along with underlying paranoid and persecutor delusions. PLAN 1. Admit on M3, Sect 12b, 15 minutes checks 2. Next prolixin 25mg IM [id number] due on 11/07/22- supposed to supplement with oral prolixin as there is 2 week delay onset. Back up haldol if refuses prolixin but pt with s/s of catatonia, may give ativan 3. Obtain collateral information from [place]- brother and guardian [phone]. 4. After care planning. 11/02- continue current medication. on sect 12, will file. 11/03 petition for sec 8 filed, pt now on section 7. continue current medication per joselyn's pt scheduled to received prolixin 25mg IM on 11/07/2022. 11/04 contnue current treatment plan 5 min checks 11/05 continue current treatment plan 11/06 continue current tx. Next prolixin Dec 25mg IM due tomorrow, will d/c oral prolixin by then. 11/07 received prolixin 25mg IM today, next one due on 11/21/2022. 11/08 continue tx. 11/09 continue tx. 11/10 continue tx. 11/11 continue tx. 11/12 continue tx. 11/13 continue tx. 11/14 added propanolol 10mg po QID prn akathesia (pt declined to schedule it), benadryl 100mg po q8h prn for same. pt declined ativan or cogentin. 11/15 continue tx. 11/16 continue tx. 11/17 continue tx. 11/18: no change in mgmt. some staff concern re involuntary mvmts of hand/arm. 11/19: no change in mgmt. some staff concern re involuntary mvmts of hand/arm. 11/20: no change in mgmt. some staff concern re involuntary mvmts of hand/arm. 11/21 continue tx. 11/22 continue tx. 11/23: continue current mgmt. 11/24: schedule benadryl 100 mg QHS for akathisia prophylaxis. otherwise continue current mgmt. 11/27: signed CV. otherwise no change to mgmt. 11/28: reporting decreased IVM. not restless at HS. no change to regimen. 11/29: no change in presentation or regimen. 11/30: as for 11/29. 12/01: no change in presentation or mgmt. 12/02: Continue current regimen and plans 12/03: Continue current plans and regimen 12/04: no change in presentation or mgmt. PETERSON tomorrow. 12/05: no change. PETERSON today. 12/06 continue. Reason for contiued inpatient stay Substantial Risk for: inability to function Time Spent With Patient Time: Total time managing care of this patient today ____ minutes.
[2022-12-06] MEDS: traZODone HCL 50 MG TABLET PO (19:58)
[2022-12-06 20:01] VITALS: BP 121/71; PULSE 66; RESP 16; TEMP 36.6; O2SAT 97
--- NOTE | 2022-12-06 20:46 | PC.NURSE ---
Vaishali declined her Norvasc this evening stated My blood pressure has been stable all day .
[2022-12-07 07:00] VITALS: BMI 22.0
[2022-12-07] MEDS: diphenhydrAMINE HCL 25 MG CAPSULE 100 MG PO ×3 (08:46→20:03)
[2022-12-07 09:08] VITALS: BP 128/73; PULSE 58; RESP 16; TEMP 36.8; O2SAT 98
--- NOTE | 2022-12-07 13:25 | P.PNPSI_ITS ---
Subjective Subjective Date of Service: 12/07/22 Reason For Visit: Psychosis Subjective Notes: Conditional Voluntary Interim History: Pt reports feeling well. Superficial, denies any psychiatric symptoms. Somewhat guarded but pleasant. No SI/HI. No aggression towards self or others. Medication Compliance: Yes Review of Systems Review of Systems Yes all other systems are reviewed and are negative Psychiatric: Reports no additional psychiatric complaints Mental Status Exam Mental Status Exam Narrative: Appearance: street clothes, fair hygiene, in NAD Behavior: no PMA/PMR. open, agreeable. TP:linear Speech:clear, regular rate/rhythm, volume, spontaneous Delusions: none expressed SI: none expressed HI: none expressed AH/VH: none expressed Insight/judgment: improving x 2. Diagnostics Vital Signs (24Hr): Vital Signs - 24 hr 12/07/22 20:05 12/08/22 08:18 Temperature 97.8 F 97.8 F Pulse Rate 63 57 Respiratory Rate 18 16 Blood Pressure 133/67 125/59 L Pulse Oximetry 97 97 Oxygen Delivery Method Room Air Room Air BMI result Body Mass Index 22.0 Medications Medications Current Medications Acetaminophen (Acetaminophen 325 Mg Tablet) 650 mg PO Q6H PRN PRN Reason: Headache/Pain Mild Scale (1-3) Al Hydroxide/Mg Hydroxide (Magnesium Hydrox/Alum Hydrox 30 Ml Oral.Susp) 30 ml PO Q6H PRN PRN Reason: Heartburn/Nausea Amlodipine Besylate (Amlodipine Besylate 5 Mg Tablet) 5 mg PO BID [facility]; Protocol Last Admin: 12/08/22 08:16 Dose: Not Given Benztropine Mesylate (Benztropine Mesylate 1 Mg Tablet) 1 mg PO TID PRN PRN Reason: Extrapyramidal Effects Last Admin: 11/20/22 11:52 Dose: 1 mg Diphenhydramine HCl (Diphenhydramine Hcl 25 Mg Capsule) 100 mg PO Q8H PRN PRN Reason: Restlessness Last Admin: 12/08/22 08:15 Dose: 100 mg Diphenhydramine HCl (Diphenhydramine Hcl 25 Mg Capsule) 100 mg PO BEDTIME [facility] Last Admin: 12/07/22 20:03 Dose: 100 mg Fluphenazine Decanoate (Fluphenazine Decanoate 25 Mg/Ml 5 Ml Vial) 25 mg IM Q14D@0900 [facility] Last Admin: 03/14/23 16:41 Dose: 25 mg Magnesium Hydroxide (Milk Of Magnesia 30 Ml Oral.Susp) 30 ml PO DAILY PRN PRN Reason: Constipation Propranolol HCl (Propranolol Hcl 10 Mg Tablet) 10 mg PO QID PRN; Protocol PRN Reason: restlessness Last Admin: 11/14/22 11:30 Dose: 10 mg Trazodone HCl (Trazodone Hcl 50 Mg Tablet) 50 mg PO BEDTIME PRN PRN Reason: Insomnia Last Admin: 12/07/22 20:03 Dose: 50 mg Allergies Allergies Allergy/AdvReac Type Severity Reaction Status Date / Time cashew nut Allergy Severe ANAPHYLAXIS Verified 01/31/22 11:11 peanut [Peanut] Allergy Severe ANAPHALAXIS Verified 01/31/22 11:11 Assessment & Plan Assessment & Plan (1) Schizophrenia: Status: Chronic Code(s): F20.9 - Schizophrenia, unspecified Assessment and Plan: back to taking medications while pending commitment- if doesn't have outpatient eren will likely continue to go off medications after dc Plan Ms. Guillaume is a 62 year-old woman with hx of schizophrenia. She was last psychiatrically admitted to on 10/2021 and discharged on prolixin 25mg IM [id number]. It appears that pt stopped prolixin about 4 months and gradually has been decompensating, presenting more paranoid and suspicious. She was found wondering on streets wearing mostly just bath rope, presented as paranoid. She was brought to [facility]- found to have hypertensive crisis, elevated TSH, refusing to eat because she believes food is poisoned, declining to have HTN treatment stating that there was cocaine in the water of the hospital. Pt given prolixin 12.5mg IM on 10/24/2022, next prolixin dose due on 11/07/22- higher dose of 25mg [id number]. This check writer saw pt while at [facility]. She appears now slightly more catatonic features including mutism, negativism along with underlying paranoid and persecutor delusions. PLAN 1. Admit on M3, Sect 12b, 15 minutes checks 2. Next prolixin 25mg IM [id number] due on 11/07/22- supposed to supplement with oral prolixin as there is 2 week delay onset. Back up haldol if refuses prolixin but pt with s/s of catatonia, may give ativan 3. Obtain collateral information from [place]- brother and guardian [phone]. 4. After care planning. 11/02- continue current medication. on sect 12, will file. 11/03 petition for sec 8 filed, pt now on section 7. continue current medication per joselyn's pt scheduled to received prolixin 25mg IM on 11/07/2022. 11/04 contnue current treatment plan 5 min checks 11/05 continue current treatment plan 11/06 continue current tx. Next prolixin Dec 25mg IM due tomorrow, will d/c oral prolixin by then. 11/07 received prolixin 25mg IM today, next one due on 11/21/2022. 11/08 continue tx. 11/09 continue tx. 11/10 continue tx. 11/11 continue tx. 11/12 continue tx. 11/13 continue tx. 11/14 added propanolol 10mg po QID prn akathesia (pt declined to schedule it), benadryl 100mg po q8h prn for same. pt declined ativan or cogentin. 11/15 continue tx. 11/16 continue tx. 11/17 continue tx. 11/18: no change in mgmt. some staff concern re involuntary mvmts of hand/arm. 11/19: no change in mgmt. some staff concern re involuntary mvmts of hand/arm. 11/20: no change in mgmt. some staff concern re involuntary mvmts of hand/arm. 11/21 continue tx. 11/22 continue tx. 11/23: continue current mgmt. 11/24: schedule benadryl 100 mg QHS for akathisia prophylaxis. otherwise continue current mgmt. 11/27: signed CV. otherwise no change to mgmt. 11/28: reporting decreased IVM. not restless at HS. no change to regimen. 11/29: no change in presentation or regimen. 11/30: as for 11/29. 12/01: no change in presentation or mgmt. 12/02: Continue current regimen and plans 12/03: Continue current plans and regimen 12/04: no change in presentation or mgmt. PETERSON tomorrow. 12/05: no change. PETERSON today. 12/06 continue. 12/07 continue tx. Reason for contiued inpatient stay Substantial Risk for: inability to function Time Spent With Patient Time: Total time managing care of this patient today ____ minutes.
[2022-12-07] MEDS: traZODone HCL 50 MG TABLET PO (20:03)
[2022-12-07 20:05] VITALS: BP 133/67; PULSE 63; RESP 18; TEMP 36.6; O2SAT 97
[2022-12-08] MEDS: diphenhydrAMINE HCL 25 MG CAPSULE 100 MG PO ×3 (08:15→20:17)
[2022-12-08 08:18] VITALS: BP 125/59; PULSE 57; RESP 16; TEMP 36.6; O2SAT 97
[2022-12-08 11:42] VITALS: BP 149/75; PULSE 61
--- NOTE | 2022-12-08 12:10 | HO.PSYCHPN ---
Subjective Subjective Date of Service: 12/08/22 Reason For Visit: Psychosis Subjective Notes: Conditional Voluntary Interim History: Pt continues to report feeling well. Superficial, denies any psychiatric symptoms. Somewhat guarded but pleasant. No SI/HI. No aggression towards self or others. Looking forward to be discharged on Sunday. Review of Systems Review of Systems Yes all other systems are reviewed and are negative Psychiatric: Reports no additional psychiatric complaints Mental Status Exam Mental Status Exam Narrative: Appearance: street clothes, fair hygiene, in NAD Behavior: no PMA/PMR. open, agreeable. TP:linear Speech:clear, regular rate/rhythm, volume, spontaneous Delusions: none expressed SI: none expressed HI: none expressed AH/VH: none expressed Insight/judgment: improving x 2. Diagnostics Vital Signs (24Hr): Vital Signs - 24 hr 12/07/22 20:05 12/08/22 08:18 12/08/22 11:42 Temperature 97.8 F 97.8 F Pulse Rate 63 57 61 Respiratory Rate 18 16 Blood Pressure 133/67 125/59 L 149/75 H Pulse Oximetry 97 97 Oxygen Delivery Method Room Air Room Air 12/08/22 14:04 Temperature Pulse Rate 69 Respiratory Rate 18 Blood Pressure 137/69 Pulse Oximetry 98 Oxygen Delivery Method Room Air BMI result Body Mass Index 22.0 Medications Medications Current Medications Acetaminophen (Acetaminophen 325 Mg Tablet) 650 mg PO Q6H PRN PRN Reason: Headache/Pain Mild Scale (1-3) Al Hydroxide/Mg Hydroxide (Magnesium Hydrox/Alum Hydrox 30 Ml Oral.Susp) 30 ml PO Q6H PRN PRN Reason: Heartburn/Nausea Amlodipine Besylate (Amlodipine Besylate 5 Mg Tablet) 5 mg PO BID SARABJIT; Protocol Last Admin: 12/08/22 08:16 Dose: Not Given Benztropine Mesylate (Benztropine Mesylate 1 Mg Tablet) 1 mg PO TID PRN PRN Reason: Extrapyramidal Effects Last Admin: 11/20/22 11:52 Dose: 1 mg Diphenhydramine HCl (Diphenhydramine Hcl 25 Mg Capsule) 100 mg PO Q8H PRN PRN Reason: Restlessness Last Admin: 12/08/22 08:15 Dose: 100 mg Diphenhydramine HCl (Diphenhydramine Hcl 25 Mg Capsule) 100 mg PO BEDTIME SARABJIT Last Admin: 12/07/22 20:03 Dose: 100 mg Fluphenazine Decanoate (Fluphenazine Decanoate 25 Mg/Ml 5 Ml Vial) 25 mg IM Q14D@0900 SARABJIT Last Admin: 12/05/22 16:41 Dose: 25 mg Magnesium Hydroxide (Milk Of Magnesia 30 Ml Oral.Susp) 30 ml PO DAILY PRN PRN Reason: Constipation Propranolol HCl (Propranolol Hcl 10 Mg Tablet) 10 mg PO QID PRN; Protocol PRN Reason: restlessness Last Admin: 11/14/22 11:30 Dose: 10 mg Trazodone HCl (Trazodone Hcl 50 Mg Tablet) 50 mg PO BEDTIME PRN PRN Reason: Insomnia Last Admin: 12/07/22 20:03 Dose: 50 mg Allergies Allergies Allergy/AdvReac Type Severity Reaction Status Date / Time cashew nut Allergy Severe ANAPHYLAXIS Verified 01/31/22 11:11 peanut [Peanut] Allergy Severe ANAPHALAXIS Verified 01/31/22 11:11 Assessment & Plan Assessment & Plan (1) Schizophrenia: Status: Chronic Code(s): F20.9 - Schizophrenia, unspecified Assessment and Plan: back to taking medications while pending commitment- if doesn't have outpatient eren will likely continue to go off medications after dc Plan Ms. Guillaume is a 62 year-old woman with hx of schizophrenia. She was last psychiatrically admitted to on 10/2021 and discharged on prolixin 25mg IM [id number]. It appears that pt stopped prolixin about 4 months and gradually has been decompensating, presenting more paranoid and suspicious. She was found wondering on streets wearing mostly just bath rope, presented as paranoid. She was brought to [facility]- found to have hypertensive crisis, elevated TSH, refusing to eat because she believes food is poisoned, declining to have HTN treatment stating that there was cocaine in the water of the hospital. Pt given prolixin 12.5mg IM on 10/24/2022, next prolixin dose due on 11/07/22- higher dose of 25mg [id number]. This resume writer saw pt while at [facility]. She appears now slightly more catatonic features including mutism, negativism along with underlying paranoid and persecutor delusions. PLAN 1. Admit on M3, Sect 12b, 15 minutes checks 2. Next prolixin 25mg IM [id number] due on 11/07/22- supposed to supplement with oral prolixin as there is 2 week delay onset. Back up haldol if refuses prolixin but pt with s/s of catatonia, may give ativan 3. Obtain collateral information from [place]- brother and guardian [phone]. 4. After care planning. 11/02- continue current medication. on sect 12, will file. 11/03 petition for sec 8 filed, pt now on section 7. continue current medication per joselyn's pt scheduled to received prolixin 25mg IM on 11/07/2022. 11/04 contnue current treatment plan 5 min checks 11/05 continue current treatment plan 11/06 continue current tx. Next prolixin Dec 25mg IM due tomorrow, will d/c oral prolixin by then. 11/07 received prolixin 25mg IM today, next one due on 11/21/2022. 11/08 continue tx. 11/09 continue tx. 11/10 continue tx. 11/11 continue tx. 11/12 continue tx. 11/13 continue tx. 11/14 added propanolol 10mg po QID prn akathesia (pt declined to schedule it), benadryl 100mg po q8h prn for same. pt declined ativan or cogentin. 11/15 continue tx. 11/16 continue tx. 11/17 continue tx. 11/18: no change in mgmt. some staff concern re involuntary mvmts of hand/arm. 11/19: no change in mgmt. some staff concern re involuntary mvmts of hand/arm. 11/20: no change in mgmt. some staff concern re involuntary mvmts of hand/arm. 11/21 continue tx. 11/22 continue tx. 11/23: continue current mgmt. 11/24: schedule benadryl 100 mg QHS for akathisia prophylaxis. otherwise continue current mgmt. 11/27: signed CV. otherwise no change to mgmt. 11/28: reporting decreased IVM. not restless at HS. no change to regimen. 11/29: no change in presentation or regimen. 11/30: as for 11/29. 12/01: no change in presentation or mgmt. 12/02: Continue current regimen and plans 12/03: Continue current plans and regimen 12/04: no change in presentation or mgmt. PETERSON tomorrow. 12/05: no change. PETERSON today. 12/06 continue. 12/07 continue tx. 12/08 continue tx. Reason for contiued inpatient stay Substantial Risk for: stable for discharge Time Spent With Patient Time: Total time managing care of this patient today ____ minutes.
[2022-12-08 14:04] VITALS: BP 137/69; PULSE 69; RESP 18; O2SAT 98
[2022-12-08 16:28] VITALS: BP 136/74; PULSE 68
[2022-12-08 20:10] VITALS: BP 145/72; PULSE 63; RESP 18; TEMP 36.4; O2SAT 95
[2022-12-08] MEDS: traZODone HCL 50 MG TABLET PO ×2 (20:17→21:13)
[2022-12-09 09:00] VITALS: BP 120/58; PULSE 63; RESP 20; TEMP 36.5; O2SAT 96
[2022-12-09] MEDS: diphenhydrAMINE HCL 25 MG CAPSULE 100 MG PO ×3 (10:03→20:12)
[2022-12-09 12:05] VITALS: BP 141/67; PULSE 68; RESP 18; O2SAT 98
--- NOTE | 2022-12-09 13:24 | PC.NURSE ---
Pt declined AM amlodipine, states she prefers to take if systolic BP is consistently greater than 140. Pt requesting rechecks of BP but continues to decline Amlodipine. Dr Daily aware.
--- NOTE | 2022-12-09 16:58 | HO.PSYCHPN ---
Subjective Subjective Date of Service: 12/09/22 Reason For Visit: Psychosis Medical Problems Affecting Mental Status: No Interim History: met with patient. Discussed with Nursing. Overall no management concerns. Adherent with medications. Aware of reluctant around [facility]. Looking forward to going home and eating her own food. Enjoys seafood. Also enjoys listening to NPR. Has outpatient services through [facility] [place]. Denies depression, medication concerns or psychosis. Medication Compliance: Yes Side effects from medications: No Attending Groups: Yes Review of Systems Acute medical concerns: No Review of Systems Review of Systems Yes all other systems are reviewed and are negative Mental Status Exam Mental Status Exam Narrative: Pleasant. Appropriately presented. Largely engaged. Affect is flat. Denies depression. No SI or HI. No agitation or overt psychosis noted. Insight and judgment okay Diagnostics Vital Signs (24Hr): Vital Signs - 24 hr 12/08/22 20:10 12/09/22 09:00 12/09/22 12:05 Temperature 97.6 F 97.7 F Pulse Rate 63 63 68 Respiratory Rate 18 20 18 Blood Pressure 145/72 H 120/58 L 141/67 H Pulse Oximetry 95 96 98 Oxygen Delivery Method Room Air Room Air Room Air BMI result Body Mass Index 22.0 Medications Medications Current Medications Acetaminophen (Acetaminophen 325 Mg Tablet) 650 mg PO Q6H PRN PRN Reason: Headache/Pain Mild Scale (1-3) Al Hydroxide/Mg Hydroxide (Magnesium Hydrox/Alum Hydrox 30 Ml Oral.Susp) 30 ml PO Q6H PRN PRN Reason: Heartburn/Nausea Amlodipine Besylate (Amlodipine Besylate 5 Mg Tablet) 5 mg PO BID SARABJIT; Protocol Last Admin: 12/09/22 09:51 Dose: Not Given Benztropine Mesylate (Benztropine Mesylate 1 Mg Tablet) 1 mg PO TID PRN PRN Reason: Extrapyramidal Effects Last Admin: 11/20/22 11:52 Dose: 1 mg Diphenhydramine HCl (Diphenhydramine Hcl 25 Mg Capsule) 100 mg PO Q8H PRN PRN Reason: Restlessness Last Admin: 12/09/22 10:03 Dose: 100 mg Diphenhydramine HCl (Diphenhydramine Hcl 25 Mg Capsule) 100 mg PO BEDTIME SARABJIT Last Admin: 12/08/22 20:17 Dose: 100 mg Fluphenazine Decanoate (Fluphenazine Decanoate 25 Mg/Ml 5 Ml Vial) 25 mg IM Q14D@0900 [facility] Last Admin: 12/05/22 16:41 Dose: 25 mg Magnesium Hydroxide (Milk Of Magnesia 30 Ml Oral.Susp) 30 ml PO DAILY PRN PRN Reason: Constipation Propranolol HCl (Propranolol Hcl 10 Mg Tablet) 10 mg PO QID PRN; Protocol PRN Reason: restlessness Last Admin: 11/14/22 11:30 Dose: 10 mg Trazodone HCl (Trazodone Hcl 50 Mg Tablet) 50 mg PO BEDTIME PRN PRN Reason: Insomnia Last Admin: 12/08/22 21:13 Dose: 50 mg Allergies Allergies Allergy/AdvReac Type Severity Reaction Status Date / Time cashew nut Allergy Severe ANAPHYLAXIS Verified 01/31/22 11:11 peanut [Peanut] Allergy Severe ANAPHALAXIS Verified 01/31/22 11:11 Assessment & Plan Assessment & Plan (1) Schizophrenia: Status: Chronic Code(s): F20.9 - Schizophrenia, unspecified Assessment and Plan: back to taking medications while pending commitment- if doesn't have outpatient eren will likely continue to go off medications after dc Plan Ms. Guillaume is a 62 year-old woman with hx of schizophrenia. She was last psychiatrically admitted to on 10/2021 and discharged on prolixin 25mg IM [id number]. It appears that pt stopped prolixin about 4 months and gradually has been decompensating, presenting more paranoid and suspicious. She was found wondering on streets wearing mostly just bath rope, presented as paranoid. She was brought to [facility]- found to have hypertensive crisis, elevated TSH, refusing to eat because she believes food is poisoned, declining to have HTN treatment stating that there was cocaine in the water of the hospital. Pt given prolixin 12.5mg IM on 10/24/2022, next prolixin dose due on 11/07/22- higher dose of 25mg [id number]. This loan underwriter saw pt while at [facility]. She appears now slightly more catatonic features including mutism, negativism along with underlying paranoid and persecutor delusions. PLAN 1. Admit on M3, Sect 12b, 15 minutes checks 2. Next prolixin 25mg IM [id number] due on 11/07/22- supposed to supplement with oral prolixin as there is 2 week delay onset. Back up haldol if refuses prolixin but pt with s/s of catatonia, may give ativan 3. Obtain collateral information from [place]- brother and guardian [phone]. 4. After care planning. 11/02- continue current medication. on sect 12, will file. 11/03 petition for sec 8 filed, pt now on section 7. continue current medication per joselyn's pt scheduled to received prolixin 25mg IM on 11/07/2022. 11/04 contnue current treatment plan 5 min checks 11/05 continue current treatment plan 11/06 continue current tx. Next prolixin Dec 25mg IM due tomorrow, will d/c oral prolixin by then. 11/07 received prolixin 25mg IM today, next one due on 11/21/2022. 11/08 continue tx. 11/09 continue tx. 11/10 continue tx. 11/11 continue tx. 11/12 continue tx. 11/13 continue tx. 11/14 added propanolol 10mg po QID prn akathesia (pt declined to schedule it), benadryl 100mg po q8h prn for same. pt declined ativan or cogentin. 11/15 continue tx. 11/16 continue tx. 11/17 continue tx. 11/18: no change in mgmt. some staff concern re involuntary mvmts of hand/arm. 11/19: no change in mgmt. some staff concern re involuntary mvmts of hand/arm. 11/20: no change in mgmt. some staff concern re involuntary mvmts of hand/arm. 11/21 continue tx. 11/22 continue tx. 11/23: continue current mgmt. 11/24: schedule benadryl 100 mg QHS for akathisia prophylaxis. otherwise continue current mgmt. 11/27: signed CV. otherwise no change to mgmt. 11/28: reporting decreased IVM. not restless at HS. no change to regimen. 11/29: no change in presentation or regimen. 11/30: as for 11/29. 12/01: no change in presentation or mgmt. 12/02: Continue current regimen and plans 12/03: Continue current plans and regimen 12/04: no change in presentation or mgmt. PETERSON tomorrow. 12/05: no change. PETERSON today. 12/06 continue. 12/07 continue tx. 12/08 continue tx. 12/09: no changes Reason for contiued inpatient stay Substantial Risk for: rapid decompensation Time Spent With Patient Time: Total time managing care of this patient today ____ minutes.
[2022-12-09] MEDS: traZODone HCL 50 MG TABLET PO ×2 (20:13→21:23)
[2022-12-09 20:18] VITALS: BP 147/69; PULSE 58; RESP 18; TEMP 36.6; O2SAT 98
--- NOTE | 2022-12-10 01:48 | PC.NURSE ---
Pt has declined Norvasc for 3 nights in a row now. Pt states that she feels dizzy if she takes, she worries her BP will drop too low. I offered prn beta talya and pt refused as well.
[2022-12-10 08:20] VITALS: BP 128/79; PULSE 51; RESP 18; TEMP 36.6; O2SAT 98
[2022-12-10 14:58] VITALS: BP 116/67; PULSE 68; RESP 16; O2SAT 97
[2022-12-10] MEDS: diphenhydrAMINE HCL 25 MG CAPSULE 100 MG PO ×2 (16:42→20:10)
--- NOTE | 2022-12-10 16:54 | HO.PSYCHPN ---
Subjective Subjective Date of Service: 12/10/22 Reason For Visit: Psychosis Interim History: Overall no management concerns. Adherent with medications. Remains eager to go home and looking forward to discharge tomorrow. Some residual psychosis, but not impacting function. No depression SI HI. No medication concerns. Sleeping well. Medication Compliance: Yes Side effects from medications: No Attending Groups: Intermittent Review of Systems Acute medical concerns: No Review of Systems Review of Systems Yes all other systems are reviewed and are negative Mental Status Exam Mental Status Exam Narrative: Pleasant. Appropriately presented. Largely engaged. Affect is flat. Denies depression. No SI or HI. No agitation or overt psychosis noted. Insight and judgment okay Diagnostics Vital Signs (24Hr): Vital Signs - 24 hr 12/09/22 20:18 12/10/22 08:20 12/10/22 14:58 Temperature 97.8 F 97.9 F Pulse Rate 58 51 68 Respiratory Rate 18 18 16 Blood Pressure 147/69 H 128/79 116/67 Pulse Oximetry 98 98 97 Oxygen Delivery Method Room Air Room Air Room Air BMI result Body Mass Index 22.0 Medications Medications Current Medications Acetaminophen (Acetaminophen 325 Mg Tablet) 650 mg PO Q6H PRN PRN Reason: Headache/Pain Mild Scale (1-3) Al Hydroxide/Mg Hydroxide (Magnesium Hydrox/Alum Hydrox 30 Ml Oral.Susp) 30 ml PO Q6H PRN PRN Reason: Heartburn/Nausea Amlodipine Besylate (Amlodipine Besylate 5 Mg Tablet) 5 mg PO BID [facility]; Protocol Last Admin: 12/10/22 09:28 Dose: Not Given Benztropine Mesylate (Benztropine Mesylate 1 Mg Tablet) 1 mg PO TID PRN PRN Reason: Extrapyramidal Effects Last Admin: 11/20/22 11:52 Dose: 1 mg Diphenhydramine HCl (Diphenhydramine Hcl 25 Mg Capsule) 100 mg PO Q8H PRN PRN Reason: Restlessness Last Admin: 12/10/22 16:42 Dose: 100 mg Diphenhydramine HCl (Diphenhydramine Hcl 25 Mg Capsule) 100 mg PO BEDTIME [facility] Last Admin: 12/09/22 20:12 Dose: 100 mg Fluphenazine Decanoate (Fluphenazine Decanoate 25 Mg/Ml 5 Ml Vial) 25 mg IM Q14D@0900 [facility] Last Admin: 12/05/22 16:41 Dose: 25 mg Magnesium Hydroxide (Milk Of Magnesia 30 Ml Oral.Susp) 30 ml PO DAILY PRN PRN Reason: Constipation Propranolol HCl (Propranolol Hcl 10 Mg Tablet) 10 mg PO QID PRN; Protocol PRN Reason: restlessness Last Admin: 11/14/22 11:30 Dose: 10 mg Trazodone HCl (Trazodone Hcl 50 Mg Tablet) 50 mg PO BEDTIME PRN PRN Reason: Insomnia Last Admin: 12/09/22 21:23 Dose: 50 mg Allergies Allergies Allergy/AdvReac Type Severity Reaction Status Date / Time cashew nut Allergy Severe ANAPHYLAXIS Verified 01/31/22 11:11 peanut [Peanut] Allergy Severe ANAPHALAXIS Verified 01/31/22 11:11 Assessment & Plan Assessment & Plan (1) Schizophrenia: Status: Chronic Code(s): F20.9 - Schizophrenia, unspecified Assessment and Plan: back to taking medications while pending commitment- if doesn't have outpatient eren will likely continue to go off medications after dc Plan Ms. Guillaume is a 62 year-old woman with hx of schizophrenia. She was last psychiatrically admitted to on 10/2021 and discharged on prolixin 25mg IM [id number]. It appears that pt stopped prolixin about 4 months and gradually has been decompensating, presenting more paranoid and suspicious. She was found wondering on streets wearing mostly just bath rope, presented as paranoid. She was brought to [facility]- found to have hypertensive crisis, elevated TSH, refusing to eat because she believes food is poisoned, declining to have HTN treatment stating that there was cocaine in the water of the hospital. Pt given prolixin 12.5mg IM on 10/24/2022, next prolixin dose due on 11/07/22- higher dose of 25mg [id number]. This engineering technical writer saw pt while at [facility]. She appears now slightly more catatonic features including mutism, negativism along with underlying paranoid and persecutor delusions. PLAN 1. Admit on M3, Sect 12b, 15 minutes checks 2. Next prolixin 25mg IM [id number] due on 11/07/22- supposed to supplement with oral prolixin as there is 2 week delay onset. Back up haldol if refuses prolixin but pt with s/s of catatonia, may give ativan 3. Obtain collateral information from [place]- brother and guardian [phone]. 4. After care planning. 11/02- continue current medication. on sect 12, will file. 11/03 petition for sec 8 filed, pt now on section 7. continue current medication per joselyn's pt scheduled to received prolixin 25mg IM on 11/07/2022. 11/04 contnue current treatment plan 5 min checks 11/05 continue current treatment plan 11/06 continue current tx. Next prolixin Dec 25mg IM due tomorrow, will d/c oral prolixin by then. 11/07 received prolixin 25mg IM today, next one due on 11/21/2022. 11/08 continue tx. 11/09 continue tx. 11/10 continue tx. 11/11 continue tx. 11/12 continue tx. 11/13 continue tx. 11/14 added propanolol 10mg po QID prn akathesia (pt declined to schedule it), benadryl 100mg po q8h prn for same. pt declined ativan or cogentin. 11/15 continue tx. 11/16 continue tx. 11/17 continue tx. 11/18: no change in mgmt. some staff concern re involuntary mvmts of hand/arm. 11/19: no change in mgmt. some staff concern re involuntary mvmts of hand/arm. 11/20: no change in mgmt. some staff concern re involuntary mvmts of hand/arm. 11/21 continue tx. 11/22 continue tx. 11/23: continue current mgmt. 11/24: schedule benadryl 100 mg QHS for akathisia prophylaxis. otherwise continue current mgmt. 11/27: signed CV. otherwise no change to mgmt. 11/28: reporting decreased IVM. not restless at HS. no change to regimen. 11/29: no change in presentation or regimen. 11/30: as for 11/29. 12/01: no change in presentation or mgmt. 12/02: Continue current regimen and plans 12/03: Continue current plans and regimen 12/04: no change in presentation or mgmt. PETERSON tomorrow. 12/05: no change. PETERSON today. 12/06 continue. 12/07 continue tx. 12/08 continue tx. 12/10: no changes Reason for contiued inpatient stay Substantial Risk for: rapid decompensation Time Spent With Patient Time: Total time managing care of this patient today ____ minutes.
[2022-12-10 19:55] VITALS: BP 176/88; PULSE 61; RESP 20; TEMP 36.6; O2SAT 96
[2022-12-10] MEDS: amLODIPine Besylate 5 MG TABLET PO (20:10)
[2022-12-10] MEDS: traZODone HCL 50 MG TABLET PO ×2 (20:10→21:01)
[2022-12-10 22:10] VITALS: BP 128/72; PULSE 62; RESP 18; O2SAT 99
[2022-12-11] MEDS: diphenhydrAMINE HCL 25 MG CAPSULE 100 MG PO ×2 (00:54→09:00)
[2022-12-11 09:04] VITALS: BP 136/73; PULSE 57; RESP 18; TEMP 36.2; O2SAT 97
--- NOTE | 2022-12-11 11:14 | P.DS_ITS ---
DS: Providers Provider Date of Service: 12/11/22 Date of admission: 10/31/22 20:12 Primary care physician: Unknown Physician Consults: 10/31/22 20:16 Consult to Hospitalist Routine Consulting Provider: Hospitalist Reason For Exam: Direct admission DS: Diagnosis Discharge Diagnosis (1) Schizophrenia: Status: Chronic DS: Medications Discharge Medications Home Medications: Previous Rx's Medication Instructions Recorded amlodipine 5 mg tablet 5 mg PO BID #60 tabs 12/11/22 diphenhydramine HCl 50 mg capsule 50 mg PO Q8H PRN EPS #30 caps 12/11/22 diphenhydramine HCl 50 mg capsule 100 mg PO BEDTIME #60 caps 12/11/22 fluphenazine decanoate 25 mg/mL 25 mg IM Q14D@0900 #5 mL 12/11/22 injection solution trazodone 50 mg tablet 50 mg PO BEDTIME PRN Insomnia #30 12/11/22 tabs Mental Status Exam Mental Status Exam Narrative: Appearance: street clothes, fair hygiene, in NAD Behavior: no PMA/PMR. open, agreeable. TP:linear Speech:clear, regular rate/rhythm, volume, spontaneous Delusions: residual paranoid delusions SI: none expressed HI: none expressed AH/VH: none expressed Insight/judgment: improving x 2. Memory/cog: alert, oriented x 3. DS: Summary Hospital Course Hospital Course: Subjective Notes: Ann Warning (given and shows understanding) and Section 12B Narrative: Ms. Guillaume is a 62 year-old woman with hx of schizophrenia. Pt was found walking on the streets wearing only bath rope, underdressed for winter weather and with paranoid delusions of [place] following her and food being poisoned. Pt was transported to [facility] ED where she was found to have a hypertensive crisis and was admitted to medical floor for further management. While at [facility], pt presented as guarded, very paranoid, not eating stating food was poisoned, refusing management of HTN as she reported water in the hospital had cocaine. Her utox in the ED was negative. Ms. Guillaume has geronimo's order (due for renewal on 11/03/22 and final expiration date if not renewed is 11/10/2022) that includes prolixin (oral/PETERSON/IM), haldol and risperidone. She apparently was doing well after discharged from about one year ago on prolixin 25mg IM [id number]. Pt stopped taking prolixin PETERSON about 4 months ago. While at [facility], pt was given prolixin 12.5mg IM on 10/24, next decanoate IM due on 11/07/2022. On the unit, pt presents a mute, nodding head to answer most questions. She c ontinues to present as paranoid. She is not eating and when asked if food is poisoned, she nods. She was up most night last night. She declined VS. She is disheveled, in bed. Limited evaluation as pt at this time mostly non verbal. Of note, this information writer saw pt at [facility] and she was slightly more talkative about extend of paranoid delusions of food being poisoned and being followed by [facility] and other militias.? Past Psychiatric History: many hospitalizations for schizophrenia with paranoid delusions. Has only responded to prolixin in past acording to her brother. she had had terrible side effect from other meds in the past. Geronimo Order in place and expires Nov 11, 2021 Medical Evaluation Reviewed: Yes HOSPITAL COURSE On the unit, pt was admitted on a sect 12b. Pt presented as paranoid, not t alking, not eating much, defecating and urinating at times in laundry basket to protect staff. Pt reported she was being poisoned and given cocaine in water which pt thought was elevating her blood pressure. She initially was not eating food that wasn't in sealed containers as she reported being poisoned. She reported she was working with [facility] against [place] . Pt is on Geronimo's Order in the community. She was continue on Prolixin Dec 25mg IM q14 days. She received a total of 4 injections while in the hospital. Pt gradually presented as much more organized, more talkative, eating better. She was also sleeping better. She was superficially cooperative and some residual paranoia was evident. She reported akathesia which at times seemed to be more related to her negotiating either a lower dose or no antipsychotic as she did not have typical objective symptoms of akathesia such as tapping of feet or need to pace. She did have upper chorea-like movement at times with both hands and minimal perioral involuntary movement. No cogwheel or rigidity. As paranoid delusions were decreasing, pt was showing increase insight as to need for ongoing blood pressure medication. She was also eating well with much less paranoid ideas of food being poisoned. She was more visible and polite on approach. Although, as mentioned before, she was superficial in reporting residual paranoid delusions. She denied SI/HI. She did not show any signs of aggression towards self or others. She agreed to continue OP psychiatric treatment with skilled nursing providers incluing [facility] and [facility]. services manager from [facility] and guardian were informed of pt's progress throughout this admission. It was recommended to consider petitioning increase of dose of prolixin on Geronimo's to 50mg IM q14 days. Her current Marquis only allows for max dose of prolixin of 25mg IM q14 days. Status at Discharge Cognitive/behavioral status at discharge: Pt with improved hygiene, brighter, non labile affect. No SI/HI. Residual paranoid delusions but her behavior and thought process much more organized and coherent. No signs of aggression towards self or others. She is sleeping and eating well. Functional status at discharge: independent ambulation Overall status at discharge: patient is progressing back to baseline Time Spent with Patient Time attestation: Total time managing care of this patient today __30__ minutes. Time spent: Greater than 30 minutes Discharge Plan Discharge Anticipated Discharge Date/Time: 12/11/22 11:03 Patient Disposition: Home Health Service Discharge Diagnosis: Schizophrenia Referrals: Dr. Milton Oliva (Psychiatry) [Other] - 12/26/22 9:00 am (IN OFFICE APPOINTMENT) [facility] [Provider Group] - 1 Week Discharge Medications: New diphenhydramine HCl 50 mg capsule 100 mg PO BEDTIME Qty: 60 0RF diphenhydramine HCl 50 mg capsule 50 mg PO Q8H PRN (Reason: EPS) Qty: 30 0RF amlodipine 5 mg Tablet 5 mg PO BID Qty: 60 0RF Protocol: Hold for SBP< HOLD for SBP < : 90 fluphenazine decanoate 25 mg/mL Solution 25 mg IM Q14D@0900 Qty: 5 1RF Rx Instructions: NEXT DOSE DUE 12/19/2022 Last Dose given on 12/05/2022 trazodone 50 mg Tablet 50 mg PO BEDTIME PRN (Reason: Insomnia) Qty: 30 0RF Discontinued fluphenazine decanoate 25 mg/mL solution 17.5 mg IM Q14D@0900 amlodipine 5 mg Tablet 5 mg PO DAILY fluphenazine HCl 5 mg Tablet 5 mg PO BID Discharge Orders: Discharge Order (Routine); Ordered 12/11/22 Ordered By: Nataliya Maynard Diet: Advance to usual diet Activity on Discharge: As tolerated Stand Alone Forms: Patient Portal Discharge page, Community Support Care Plan Goals: 1. Maintain mood 2. No aggression towards self or others. 3. Able to care for herself including attending to her hygiene and adequate fe eding herself. 4. No SI/HI. Health Concerns: Follow up with PCP Plan of Treatment: 1. Take medications as prescribed. Prolixin PETERSON is court mandated medication 2. Go to nearest ED or call 911 in event of emergency Assessment: Pt with slightly brighter, non labile. NO SI/HI. Residual delusions of being part of [place] still present. However, pt taking medications, sleeping, much more organized in speech and behavior. No signs of aggression towards self or others. Future oriented in that she is looking forward to continue OP treatment. Discharge Date/Time: 12/11/22 13:17
[2022-12-11] MEDS: amLODIPine Besylate 5 MG TABLET PO (12:38)
--- NOTE | 2022-12-11 13:31 | PC.NURSE ---
Patient engages easily. Reports feeling ready for discharge. Reports mood is good . Continues superficial. Denies depression or sadness, denies feeling anxious, denies SI/HI plan or intent. Denies perceptual disturbances, no overt psychosis or expressed delusions. Denies A/V hallucinations, denies paranoia or suspiciousness. Al discharge paperwork reviewed with patient. Medications reviewed, reports understanding. Follow up appointments reviewed patient states understanding. Crisis numbers provided to patient. All belongings taken with patient.
== END 2022-12-11 13:17 | disposition home health service (06) | DRG 885 ==
PROVIDERS: Admitting Provider Psychiatry & Neurology Psychiatry; Visit Provider Social Worker
DX: F20.0 Paranoid schizophrenia (principal); E03.9 Hypothyroidism, unspecified; Z79.899 Other long term (current) drug therapy
CPT/HCPCS: 93005; J2680